=== PATIENT | female | born 1965 | race Caucasian/White ===

== ENCOUNTER 2023-05-25 20:53 | Outpatient (REF) | payer BC, SELFPAY ==
[2023-05-28 14:09] LABS: Age Gdln ACOG Testing Note (.); HPV Aptima Negative (Negative); IGP, Aptima HPV, rfx 16/18,45 Note (.)
== END 2023-05-25 20:54 | disposition home or self-care (01) ==
LOC: LAB 20:53
PROVIDERS: PCP Family Medicine; Visit Provider Obstetrics & Gynecology
DX: Z01.419 Encounter for gynecological examination (general) (routine) without abnormal findings (principal)
CPT/HCPCS: 87624; 88305; G0145

== ENCOUNTER 2023-06-05 14:25 | Outpatient (OUT) | payer BC, SELFPAY ==
--- NOTE | 2023-06-05 14:28 | CT_ITS ---
The [address] [address] Patient Name: JUAN CARLOS LOU MRN: [id number] date: 1965 Sex: F Assigned Patient Location: CT Current Patient Location: CT Accession/Order Number: [id number] Exam Date: 06/05/2023 14:35 Report Date: 06/05/2023 16:02 At the request of: CIARRA VILLATORO Procedure: CT chest wo con CT chest wo con, 06/05/2023 2:35 PM EST INDICATION: Right lower lobe pneumonia J18.9 COMPARISON: CT of the chest 06/18/2018, thyroid ultrasound 07/23/2015 TECHNIQUE: Thin-section axial CT images of the chest were acquired without contrast. Supplemental 2D reformatted images were generated and reviewed as needed. Dose reduction techniques were achieved by using automated exposure control and/or adjustment of mA and/or kV according to patient size and/or use of iterative reconstruction technique. FINDINGS: Nodule within the left lobe of thyroid gland, grossly unchanged. Heart size within normal limits. No pericardial effusion. No significant coronary artery calcification. No aortic aneurysm. No mediastinal or axillary lymphadenopathy. No central endobronchial nodule. No lobar consolidation, pleural effusion or pneumothorax. Interval decrease in conspicuity of left lower lobe subsegmental atelectasis with small focus of rounded atelectasis. No acute findings in the upper abdomen. No acute fracture. CT/CT chest wo con IMPRESSION: No acute cardiopulmonary process. Electronically authenticated by: FELIPA MARTIN Date: 06/05/2023 16:02
--- OUTSIDE RECORDS SUMMARY | 2023-06-05 14:53 | XMS_ITS | CCD ---
Author Name Unknown Address [address] [place] [address] Organization [facility] Care Team Providers Care Pinion Polisher Name Role Phone MD Sacha Monroy Primary Care Provider MD Vishal Card Attending Provider KYAW, DR BRIONES Admitting Unavailable KYAW, DR BRIONES Attending Unavailable IRVING, DR LAFLEUR Primary Care Unavailable KYAW, DR BRIONES Consulting Unavailable KARELVIRAK, DR BARKER Admitting Unavailable KARELVIRAK, DR BARKER Attending Unavailable IRVING, DR LAFLEUR Primary Care Unavailable KARELVIRAK, DR BARKER Consulting Unavailable KYAW, DR BRIONES Admitting Unavailable KYAW, DR BRIONES Attending Unavailable IRVING, DR LAFLEUR Primary Care Unavailable KYAW, DR BRIONES Consulting Unavailable MD Sacha Monroy Primary Care Provider [phone] MD Anali Card Attending Provider BILL SOTELO Attending Unavailable Bill Sotelo Attending Provider Bill Sotelo Attending Unavailable Bill Sotelo Admitting Unavailable Anali Card Attending Unavailable Anali Card Admitting Unavailable Sacha Monroy Primary Care Unavailable Medications Current Medications Medication Drug Class(es) Dates Sig (Normalized) Sig (Original) aspirin 81 mg delayed release oral tablet (4 sources) Platelet Aggregation Inhibitor, Nonsteroidal Anti-inflammatory Drug Start: 09-26-2020 take 1 tablet by mouth once daily Aspirin (Aspirin Low Dose) 81 mg Tablet,Delayed Release (Dr/Ec) Active 81 MG PO Daily September 25, 2020 11:00pm phentermine hydrochloride 37.5 mg oral tablet (8 sources) Sympathomimetic Amine Anorectic Start: 09-26-2020 End: 09-26-2020 take 1 tablet by mouth once daily Phentermine (Adipex-P) 37.5 mg tablet Active 37.5 MG PO Daily September 25, 2020 11:00pm simvastatin 20 mg oral tablet (4 sources) HMG-CoA Reductase Inhibitor Start: 09-26-2020 take 20 mg by mouth once daily Simvastatin Active 20 MG PO Daily September 25, 2020 11:00pm traZODone hydrochloride 100 mg oral tablet (4 sources) Serotonin Reuptake Inhibitor Start: 09-26-2020 take 50 mg by mouth at bedtime Trazodone Active 50 MG PO Bedtime September 25, 2020 11:00pm Problems Active Problems Problem Classification Problem Date Documented Da te Episodic/Chronic Osteoarthritis (5 sources) Unspecified osteoarthritis, unspecified site; Translations: [Primary generalized (osteo)arthritis] Onset: 06-06-2022 Chronic Other aftercare (1 source) 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; 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] Onset: 06-08-2022 Episodic Past or Other Problems Problem Classification Problem Date Documented Date Episodic/Chronic Immunizations and screening for infectious disease (2 sources) Raised antibody titer; Translations: [Encounter for screening for human papillomavirus (HPV)] Onset: 08-23-2021 Episodic Other screening for suspected conditions (not mental disorders or infectious disease) (4 sources) Encounter for screening for malignant neoplasm of cervix; Translations: [ENC SCREENING MALIG NEOPLASM CERV] Onset: 08-22-2021 Episodic Results Test Name Value Interpretation Reference Range Facility [facility] 05-25-2023 L Specimen: [id number] Received: 05/26/23 Status: MARIELA Mcgrath Num: [id number] Spec Type: Surgical Subm Dr: Bill Sotelo Tissues: A Cervical Polyp (CERVICAL POLYP) Procedures: HE/2, Gross/Micro L4 Age/ Patient Sex Location Account Attending Physician Juan Carlos Ogden 57/F LABELL [id number] Bill Sotelo SPEC NUM: [id number] RECD: 05/26/23 STATUS: MARIELA MCGRATH NUM: [id number] DARIUS: 05/25/23- SUBM DR: Bill Sotelo ENTERED: 05/26/[address]: Anali,Lab SPEC TYPE: Surgical DEPT: ADELSO COATES ORDERED: HE/2, Gross/Micro L4 ORDERED: HE/2, Gross/Micro L4 Pathological Diagnosis Uterine cervical polyp, polypectomy: - Benign markedly congested, and focally eroded, endocervical mucosal polyp, displaying patchy mildly associated acute and chronic inflammation, moderate external fibrin exudates, small focal mild eosinophilic and squamous metaplasia with associated reactive atypia without dysplasia identified Clinical Information Cervical polyp Gross Description Received in formalin labeled with the patient's name, date of and cervical polyp is a 1.5 x 1.2 x 0.2 cm aggregate of colón-brown soft tissue and mucoid material. Entirely submitted in one cassette labeled A1. CPT Codes 35339 Specimen: [id number] Received: 05/26/23 Status: MARIELA Mcgrath Num: [id number] Spec Type: Surgical Subm Dr: Bill Sotelo Tissues: A Cervical Polyp (CERVICAL POLYP) Procedures: HE/2, Gross/Micro L4 Patient: Jolanta Ogdenn [id number] (Continued) Signed (signature on file) Chin-Naif Neely MD 05/27/23 1009 Normal [facility] Alanine aminotransferase [En zymatic activity/volume] in Serum or PlasmaOrdered By: Anali Card on 02-12-2023 ALT [Catalytic activity/Vol] 70 U/L High 7-52 [facility] Comment on above: Performed By: #### C BC, CMP #### [facility] [address] [place] [address] Albumin [Mass/volume] in Ser um or Plasma by Bromocresol green (BCG) dye binding methoOrdered By: Anali Card on 02-12-2023 Albumin BCG dye [Mass/Vol] 4.3 g/dL 3.5-5.7 [facility] Alkaline phosphatase [Enzyma tic activity/volume] in Serum or PlasmaOrdered By: Anali Card on 02-12-2023 ALP [Catalytic activity/Vol] 80 U/L Normal 34-104 [facility] Comment on above: Result Comment: PERF ORMED BY: [place] [address] PATHOLOGIST DISTRIBUTION CENTER ADMINISTRATOR OLGA LIDIA CORONA M.D. Performed By: #### C BC, CMP #### [facility] [address] Aspartate aminotransferase [ Enzymatic activity/volume] in Serum or PlasmaOrdered By: Anali Card on 02-12-2023 AST [Catalytic activity/Vol] 36 U/L Normal 13-39 [facility] Comment on above: Performed By: #### C BC, CMP #### [place] [address] [place] Automated basophil %Ordered By: Anali Lalrow on 02-12-2023 Basophils/100 WBC (Bld) 0.4 % Normal . [facility] Comment on above: Performed By: #### C BC, CMP #### [address] Automated basophil countOrde red By: Anali Lalrow on 02-12-2023 Basophils (Bld) [#/Vol] 0.0 10*3/uL Normal 0.0-0.2 [facility] Comment on above: Result Comment: PERF ORMED BY: [place] [address] PATHOLOGIST DISTRIBUTION CENTER ADMINISTRATOR OLGA LIDIA CORONA M.D. Performed By: #### C BC, CMP #### [address] Automated blood monocyte cou ntOrdered By: Analigardenia Card on 02-12-2023 Monocytes (Bld) [#/Vol] 0.4 10*3/uL Normal 0.0-0.8 [facility] Comment on above: Performed By: #### C BC, CMP #### [address] Automated eosinophil %Ordere d By: Anali Lalrow on 02-12-2023 Eosinophils/100 WBC (Bld) 2.1 % Normal . [facility] Comment on above: Performed By: #### C BC, CMP #### [address] Automated eosinophil countOr dered By: Anali Lalrow on 02-12-2023 Eosinophils (Bld) [#/Vol] 0.1 10*3/uL Normal 0.0-0.45 [facility] Comment on above: Performed By: #### C BC, CMP #### [address] Automated monocyte %Ordered By: Anali Kyaw on 02-12-2023 Monocytes/100 WBC (Bld) 8.2 % Normal . [facility] Comment on above: Performed By: #### C BC, CMP #### [address] Automated neutrophil %Ordere d By: Anali Card on 02-12-2023 Neutrophils/100 WBC (Bld) 58.3 % Normal . [facility] Comment on above: Performed By: #### C BC, CMP #### [address] Bilirubin.total [Mass/volume ] in Serum or PlasmaOrdered By: Anali Lalrow on 02-12-2023 Bilirubin [Mass/Vol] 0.5 mg/dL Normal 0.3-1.0 [facility] Comment on above: Performed By: #### C BC, CMP #### [address] Calcium [Mass/volume] in Ser um or PlasmaOrdered By: Anali Lalrow on 02-12-2023 Calcium [Mass/Vol] 9.2 mg/dL Normal 8.6-10.3 [facility] Comment on above: Performed By: #### C BC, CMP #### [address] Carbon dioxide, total [Moles /volume] in Serum or PlasmaOrdered By: Anali Card on 02-12-2023 CO2 [Moles/Vol] 28.6 mmol/L Normal 21.0-31.0 [facility] Comment on above: Performed By: #### C BC, CMP #### [place] [address] [place] Chloride [Moles/volume] in S tex or PlasmaOrdered By: Anali Lalrow on 02-12-2023 Chloride [Moles/Vol] 106 mmol/L Normal 98-107 [facility] Comment on above: Performed By: #### C BC, CMP #### [address] Complete Blood Count Auto Di ffon 02-12-2023 Mean Corpuscular HGB Conc 33.5 g/dL Normal 32.0-35.0 [facility] Comment on above: Performed By: #### C BC, CMP #### [address] NRBC% 0.1 /100{WBC} Normal 0-0.5 [facility] Comment on above: Performed By: #### C BC, CMP #### [address] Comprehensive Metabolic Pane kim 02-12-2023 Albumin [Mass/Vol] 4.3 g/dL Normal 3.5-5.7 [facility] Comment on above: Performed By: #### C BC, CMP #### [address] GFR/1.73 sq M.predicted MDRD (S/P/Bld) [Vol rate/Area] mL/min/{1.73_m2} Normal [facility] Comment on above: Performed By: #### C BC, CMP #### [address] Creatinine [Mass/volume] in Serum or PlasmaOrdered By: Anali Card on 02-12-2023 Creatinine [Mass/Vol] 0.93 mg/dL Normal 0.60-1.20 [facility] Comment on above: Performed By: #### C BC, CMP #### [address] Erythrocyte distribution wid th [Ratio] by Automated countOrdered By: Anali Card on 02-12-2023 Erythrocyte distribution width (RBC) [Ratio] 14.5 % Normal 11.9-15.3 [facility] Comment on above: Performed By: #### C BC, CMP #### [address] Erythrocytes [#/volume] in B lood by Automated countOrdered By: Anali Card on 02-12-2023 RBC (Bld) [#/Vol] 4.32 10*6/uL Normal 3.60-5.00 [facility] Comment on above: Performed By: #### C BC, CMP #### [address] Glucose [Mass/volume] in Ser um or PlasmaOrdered By: Anali Card on 02-12-2023 Glucose [Mass/Vol] 107 mg/dL High 70-100 [facility] Comment on above: ADA recommended refe rence rangeRandom Glucose Reference Range is dependent on time and content of last meal. Glucose of more than 200 mg/dL in a nonstressed, ambulatory subject supports the diagnosis of Diabetes Mellitus. Result Comment: [place] Glucose Reference Range is dependent on time and content of last meal. Glucose of more than 200 mg/dL in a nonstressed, ambulatory subject supports the diagnosis of Diabetes Mellitus. ADA recommended reference range Performed By: #### C BC, CMP #### [address] Hematocrit [Volume Fraction] of Blood by Automated countOrdered By: Anali Card on 02-12-2023 Hematocrit (Bld) [Volume fraction] 39.2 % Normal 34.0-46.4 [facility] Comment on above: Performed By: #### C BC, CMP #### [address] Hemoglobin [Mass/volume] in BloodOrdered By: Anali Card on 02-12-2023 Hemoglobin (Bld) [Mass/Vol] 13.1 g/dL Normal 11.8-15.4 [facility] Comment on above: Performed By: #### C BC, CMP #### [address] Leukocytes [#/volume] correc henry for nucleated erythrocytes in Blood by Automated counOrdered By: Anali Card on 02-12-2023 WBC corrected for nucl RBC Auto (Bld) [#/Vol] 4.9 10*3/uL 3.8-11.6 [facility] Leukocytes [#/volume] in Blo od by Automated countOrdered By: Anali Card on 02-12-2023 WBC (Bld) [#/Vol] 4.9 10*3/uL Normal 3.8-11.6 [facility] Comment on above: Performed By: #### C BC, CMP #### [address] Lymphocytes [#/volume] in Bl ood by Automated countOrdered By: Anali Lalrow on 02-12-2023 Lymphocytes (Bld) [#/Vol] 1.5 10*3/uL Normal 1.00-4.8 [facility] Comment on above: Performed By: #### C BC, CMP #### [address] Lymphocytes/100 leukocytes i n Blood by Automated countOrdered By: Anali Kyaw on 02-12-2023 Lymphocytes/100 WBC (Bld) 31.0 % Normal . [facility] Comment on above: Performed By: #### C BC, CMP #### [address] MCH [Entitic mass] by Automa henry countOrdered By: Anali Lalrow on 02-12-2023 MCH (RBC) [Entitic mass] 30.4 pg Normal 24.7-34.3 [facility] Comment on above: Performed By: #### C BC, CMP #### [address] MCHC Auto (RBC) [Mass/Vol]Or dered By: Anali Kyaw on 02-12-2023 MCHC (RBC) [Mass/Vol] 33.5 g/dL 32.0-35.0 [facility] MCV [Entitic volume] by Auto mated countOrdered By: Anali Lalrow on 02-12-2023 MCV (RBC) [Entitic vol] 90.8 fL Normal 80-100 [facility] Comment on above: Performed By: #### C BC, CMP #### [place] [address] [place] Neutrophils [#/volume] in Bl ood by Automated countOrdered By: Anali Lalrow on 02-12-2023 Neutrophils (Bld) [#/Vol] 2.9 10*3/uL Normal 1.8-7.7 [facility] Comment on above: Performed By: #### C BC, CMP #### [address] No Panel InformationOrdered By: Anali Card on 02-12-2023 Estimated GFR (CKD-EPI) > 60.0 mL/Min [facility] Creatinine Clearance (Chem N/A [facility] Nucleated erythrocytes [Pres ence] in Blood by Automated countOrdered By: Anali Lalrow on 02-12-2023 Nucleated RBC Auto Ql (Bld) 0.1 /100{WBC} 0-0.5 [facility] Platelet mean volume [Entiti c volume] in Blood by Automated countOrdered By: Anali Lalrow on 02-12-2023 Platelet mean volume (Bld) [Entitic vol] 9.6 fL Normal 6.3-10.7 [facility] Comment on above: Performed By: #### C BC, CMP #### [address] Platelets [#/volume] in Bloo d by Automated countOrdered By: Anali Lalrow on 02-12-2023 Platelets (Bld) [#/Vol] 202 10*3/uL Normal 150-450 [facility] Comment on above: Performed By: #### C BC, CMP #### [address] Potassium [Moles/volume] in Serum or PlasmaOrdered By: Anali Card on 02-12-2023 Potassium [Moles/Vol] 4.6 mmol/L Normal 3.5-5.1 [facility] Comment on above: Performed By: #### C BC, CMP #### [address] Protein [Mass/volume] in Ser um or PlasmaOrdered By: Anali Card on 02-12-2023 Protein [Mass/Vol] 6.6 g/dL Normal 6.4-8.9 [facility] Comment on above: Performed By: #### C BC, CMP #### [address] Serum globulin measurement b y calculation (mass/volume)Ordered By: Anali Card on 02-12-2023 Globulin (S) [Mass/Vol] 2.3 g/dL Normal [facility] Comment on above: Performed By: #### C BC, CMP #### [address] Serum or plasma albumin/glob ulin mass ratioOrdered By: Anali Card on 02-12-2023 Albumin/Globulin [Mass ratio] 1.9 {ratio} Normal [facility] Comment on above: Performed By: #### C BC, CMP #### [address] Serum or plasma anion gap de terminationOrdered By: Anali Card on 02-12-2023 Anion gap [Moles/Vol] 11.0 mmol/L Normal 6.0-15.0 [facility] Comment on above: Performed By: #### C BC, CMP #### [address] Sodium [Moles/volume] in Ser um or PlasmaOrdered By: Anali Lalrow on 02-12-2023 Sodium [Moles/Vol] 141 mmol/L Normal 136-145 [facility] Comment on above: Performed By: #### C BC, CMP #### [address] Urea nitrogen [Mass/volume] in Serum or PlasmaOrdered By: Anali Card on 02-12-2023 Urea nitrogen [Mass/Vol] 16 mg/dL Normal 7-25 [facility] Comment on above: Performed By: #### C BC, CMP #### [address] ANTICARDIOLIPIN AB (SELINA) IGG on 06-09-2022 Anticardiolipin Ab,IgG,Qn <9 Normal 0-14 [facility] Comment on above: Result Comment: Nega tive: <15 Indeterminate: 15 - 20 Low-Med Positive: >20 - 80 High Positive: >80 Performed By: #### C ARDLIP #### [facility] [address] [address] [address] Allison Neely CBC AUTO DIFFon 02-03-2023 BASO # 0.0 103/ul Normal 0.0-0.1 [facility] Comment on above: Performed By: #### C BC #### [facility] [address] [place] [address] Dr. Allison Neely Basophils/100 WBC (Bld) 0.5 % Normal 0.2-2.0 [facility] Comment on above: Performed By: #### C BC #### [facility] [address] [place] [address] Dr. Allison Neely EO # 0.1 103/ul Normal 0.0-0.7 [facility] Comment on above: Performed By: #### C BC #### [facility] [address] [place] [address] Dr. Allison Neely Eosinophils/100 WBC (Bld) 0.9 % Normal 0.9-7.0 [facility] Comment on above: Performed By: #### C BC #### [facility] [address] [place] [address] Dr. Allison Neely Erythrocyte distribution width (RBC) [Ratio] 13.7 % Normal 11.0-15.0 [facility] Comment on above: Performed By: #### C BC #### [facility] [address] [place] [address] Dr. Allison Neely Hematocrit (Bld) [Volume fraction] 41.8 % Normal 36.0-48.0 [facility] Comment on above: Performed By: #### C BC #### [facility] [address] [place] [address] Dr. Allison Neely Hemoglobin (Bld) [Mass/Vol] 13.0 g/dL Normal 12.0-16.0 [facility] Comment on above: Performed By: #### C BC #### [facility] [address] [place] [address] Dr. Allison Neely IG # 0.01 10e3/ul Normal 0.00-0.03 [facility] Comment on above: Performed By: #### C BC #### [facility] [address] [place] [address] Dr. Allison Neely IG % 0.2 % Normal 0.0-0.5 [facility] Comment on above: Performed By: #### C BC #### [facility] [address] [place] [address] Dr. Allison Neely LYMPH # 1.7 103/ul Normal 1.2-3.8 [facility] Comment on above: Performed By: #### C BC #### [facility] [address] [place] [address] Dr. Allison Neely Lymphocytes/100 WBC (Bld) 30.5 % Normal 20.5-60.0 [facility] Comment on above: Performed By: #### C BC #### [facility] [address] [place] [address] Dr. Allison Neely MANUAL DIFF REQ NO Normal [facility] Comment on above: Performed By: #### C BC #### [facility] [address] [place] [address] Dr. Allison Neely MCH (RBC) [Entitic mass] 29.7 pg Normal 26.7-34.0 [facility] Comment on above: Performed By: #### C BC #### [facility] [address] [place] [address] Dr. Allison Neely MCHC (RBC) [Mass/Vol] 31.1 g/dL Normal 29.9-35.2 [facility] Comment on above: Performed By: #### C BC #### [facility] [address] [place] [address] Dr. Allison Neely MCV (RBC) [Entitic vol] 95.7 fL Normal 81.0-99.0 [facility] Comment on above: Performed By: #### C BC #### [facility] [address] [place] [address] Dr. Allison eNely MONO # 0.3 103/ul Normal 0.3-0.8 [facility] Comment on above: Performed By: #### C BC #### [facility] [address] [place] [address] Dr. Allison Neely Monocytes/100 WBC (Bld) 5.1 % Normal 1.7-12.0 [facility] Comment on above: Performed By: #### C BC #### [facility] [address] [place] [address] Dr. Allison Neely NEUT # 3.5 103/ul Normal 1.4-6.5 [facility] Comment on above: Performed By: #### C BC #### [facility] [address] [place] [address] Dr. Allison Neely Neutrophils/100 WBC (Bld) 62.8 % Normal 43.0-75.0 [facility] Comment on above: Performed By: #### C BC #### [facility] [address] [place] [address] Dr. Allison Neely Platelet mean volume (Bld) [Entitic vol] 12.0 fL Normal 9.5-13.5 [facility] Comment on above: Performed By: #### C BC #### [facility] [address] [place] [address] Dr. Allison Neely PLT 274 103/ul Normal 150-450 [facility] Comment on above: Performed By: #### C BC #### [facility] [address] [place] [address] Dr. Allison Neely RBC 4.37 106/ul Normal 4.20-5.40 [facility] Comment on above: Performed By: #### C BC #### [facility] [address] [place] [address] Dr. Allison Neely WBC 5.6 103/ul Normal 4.0-11.0 [facility] Comment on above: Performed By: #### C BC #### [facility] [address] [place] [address] Dr. Allison Neely PROF 14(COMP METB)on 023 Albumin [Mass/Vol] 4.0 g/dL Normal 3.4-5.0 [facility] Comment on above: Performed By: #### C MP #### [facility] [address] [place] [address] Dr. Allison Neely Albumin/Globulin [Mass ratio] 1.3 {ratio} Normal [facility] Comment on above: Performed By: #### C MP #### [facility] [address] [address] [address] Allison Neely ALP [Catalytic activity/Vol] 103 U/L Normal 46-116 [facility] Comment on above: Performed By: #### C MP #### [facility] [address] [address] [address] Allison Neely ALT [Catalytic activity/Vol] 69 U/L Critically high 14-59 [facility] Comment on above: Performed By: #### C MP #### [facility] [address] [address] [address] Allison Neely Anion gap [Moles/Vol] 12.8 mmol/L Normal Th [facility] Comment on above: Performed By: #### C MP #### [facility] [address] [place] [address] Dr. Allison Neely AST [Catalytic activity/Vol] 30 U/L Normal 15-37 [facility] Comment on above: Performed By: #### C MP #### [facility] [address] [address] [address] Allison Neely Bilirubin [Mass/Vol] 0.4 mg/dL Normal 0.2-1.0 [facility] Comment on above: Performed By: #### C MP #### [facility] [address] [address] [address] Allison Neely Calcium [Mass/Vol] 9.3 mg/dL Normal 8.5-10.1 [facility] Comment on above: Performed By: #### C MP #### [facility] [address] [address] [address] Allison Neely Chloride [Moles/Vol] 101 mmol/L Normal 98-107 [facility] Comment on above: Performed By: #### C MP #### [facility] [address] [address] [address] Allison Neely CO2 [Moles/Vol] 29.2 mmol/L Normal 21.0-32.0 [facility] Comment on above: Performed By: #### C MP #### [facility] [address] [address] [address] Allison Neely Creatinine [Mass/Vol] 0.99 mg/dL Normal 0.55-1.02 [facility] Comment on above: Performed By: #### C MP #### [facility] [address] [address] [address] Allison Neely EGFR-AF SRI LANKAN >60 Normal >=60 [facility] Comment on above: Performed By: #### C MP #### [facility] [address] [address] [address] Allison Neely EGFR-NON AF SRI LANKAN 58 mL/min/1.73m2 Critically low >=60 [facility] Comment on above: Performed By: #### C MP #### [facility] [address] [place] [address] Dr. Allison Neely Globulin (S) [Mass/Vol] 3.0 g/dL Normal [facility] Comment on above: Performed By: #### C MP #### [facility] [address] [place] [address] Dr. Allison Neely Glucose [Mass/Vol] 157 mg/dL Critically high 74-106 [facility] Comment on above: Performed By: #### C MP #### [facility] [address] [place] [address] Dr. Allison Neely Potassium [Moles/Vol] 4.0 mmol/L Normal 3.5-5.1 [facility] Comment on above: Performed By: #### C MP #### [facility] [address] [place] [address] Dr. Allison Neely Protein [Mass/Vol] 7.0 g/dL Normal 6.4-8.2 [facility] Comment on above: Performed By: #### C MP #### [facility] [address] [place] [address] Dr. Allison Neely Sodium [Moles/Vol] 139 mmol/L Normal 136-145 [facility] Comment on above: Performed By: #### C MP #### [facility] [address] [place] [address] Dr. Allison Neely Urea nitrogen [Mass/Vol] 26.0 mg/dL Critically high 7.0-18 .0 [facility] Comment on above: Performed By: #### C MP #### [facility] [address] [place] [address] Dr. Allison Neely Urea nitrogen/Creatinine [Mass ratio] 26.3 mg/mg Normal [facility] Comment on above: Performed By: #### C MP #### [facility] [address] [place] [address] Dr. Allison Neely ANTICARDIOLIPIN AB (SELINA) IGG on 12-26-2021 Anticardiolipin Ab,IgG,Qn <9 Normal 0-14 [facility] Comment on above: Result Comment: Nega tive: <15 Indeterminate: 15 - 20 Low-Med Positive: >20 - 80 High Positive: >80 Performed By: #### C ARDLIP #### [facility] [address] [place] [address] Dr. Allison Neely PAP ACOG PANEL 2: 30 to 65on 08-29-2021 . . Normal [facility] Comment on above: Result Comment: Perf ormed at: WB Performed By: #### [id number] #### [facility] [address] [place] [address] Dr. Allison Neely Age Gdln ACOG Testing 30-65 Normal [facility] Comment on above: Performed By: #### [id number] #### [facility] [address] [place] [address] Dr. Allison Neely DIAGNOSIS: Comment Normal [facility] Comment on above: Result Comment: NEGA TIVE FOR INTRAEPITHELIAL LESION OR MALIGNANCY. CELLULAR CHANGES ASSOCIATED WITH ATROPHY ARE PRESENT. Performed at: WB Performed By: #### [id number] #### [facility] [address] [place] [address] Dr. Allison Neely HPV Aptima Negative Normal Negative [facility] Comment on above: Result Comment: This nucleic acid amplification test detects fourteen high-risk HPV types (16,18,31,33,35,39,45,51,52,56,58,59,66,68) without differentiation. Performed at: =G Performed By: #### [id number] #### [facility] [address] [place] [address] Dr. Allison Neely Methodology: Comment Normal [facility] Comment on above: Result Comment: This liquid based ThinPrep(R) pap test was screened with the use of an image guided system. Performed at: WB Performed By: #### [id number] #### [facility] [address] [place] [address] Dr. Allison Neely Note: Comment Normal [facility] Comment on above: Result Comment: The Pap smear is a screening test designed to aid in the detection of premalignant and malignant conditions of the uterine cervix. It is not a diagnostic procedure and should not be used as the sole means of detecting cervical cancer. Both false-positive and false-negative reports do occur. . Performed at: WB Performed By: #### [id number] #### [facility] [address] [place] [address] Dr. Allison Neely Performed by: Comment Normal [facility] Comment on above: Result Comment: Nuno Solis, Corporate Executive Chef (ASCP) Performed at: WB Performed By: #### [id number] #### [facility] [address] [place] [address] Dr. Allison Neely Specimen adequacy: Comment Normal [facility] Comment on above: Result Comment: Sati sfactory for evaluation. Endocervical component may not be distinguished in cases of atrophy. Performed at: WB Performed By: #### [id number] #### [facility] [address] [place] [address] Dr. Allison Neely Activated partial thrombopla stin time (aPTT) in platelet poor plasma by coagulation aOrdered By: Anali Card on 08-26-2021 aPTT Coag (PPP) [Time] 33.9 s 25.1-36.5 [facility] Albumin [Mass/volume] in Ser um or PlasmaOrdered By: Anali Card on 08-26-2021 Albumin [Mass/Vol] 4.0 g/dL [facility] Albumin/Protein.total in 24 hour Urine by ElectrophoresisOrdered By: Anali Card on 08-26-2021 Albumin Elph (24H U) [Mass fraction] 22.6 % [facility] Automated erythrocytes count in urine sediment (number/area)Ordered By: Anali Card on 08-26-2021 RBC Auto (Urine sed) [#/Area] 0-1 [HPF] [facility] Automated leukocytes count i n urine sediment (number/area)Ordered By: Anali Card on 08-26-2021 WBC Auto (Urine sed) [#/Area] 0-1 [HPF] [facility] Basophils Auto (Bld) [#/Vol] Ordered By: Anali Card on 08-26-2021 Basophils (Bld) [#/Vol] 0.0 10*3/uL 0.0-0.2 [facility] Basophils/100 WBC Auto (Bld) Ordered By: Anali Card on 08-26-2021 Basophils/100 WBC (Bld) 0.8 % [facility] Bilirubin Test strip Ql (U)O rdered By: Anali Card on 08-26-2021 Bilirubin Ql (U) Negative Negative [facility] Blood hemoglobin measurement (mass/volume)Ordered By: Anali Card on 08-26-2021 Hemoglobin (Bld) [Mass/Vol] 13.5 g/dL 11.8-15.4 [facility] Blood leukocytes automated c ount (number/volume)Ordered By: Anali Card on 08-26-2021 WBC (Bld) [#/Vol] 3.3 10*3/uL 4.5-11.0 [facility] Body fluid albumin measureme nt (mass/volume)Ordered By: Anali Card on 08-26-2021 Albumin (Body fld) [Mass/Vol] 4.3 g/dL 3.2-5.5 [facility] Color Auto (U)Ordered By: Venkat Card on 08-26-2021 Color (U) Yellow Yellow [facility] Creatine kinase [Enzymatic a ctivity/volume] in Serum or PlasmaOrdered By: Anali Card on 08-26-2021 CK [Catalytic activity/Vol] 137 U/L 22-269 [facility] Creatinine and Glomerular fi ltration rate.predicted panel (S/P/Bld)Ordered By: Anali Card on 08-26-2021 Creatinine [Mass/Vol] 0.91 mg/dL 0.44-1.03 [facility]ir [facility] Dilute Morgan's viper venom timeOrdered By: Anali Card on 08-26-2021 dRVVT Coag (PPP) [Time] 39.0 s F [facility] Eosinophils Auto (Bld) [#/Vo l]Ordered By: Anali Card on 08-26-2021 Eosinophils (Bld) [#/Vol] 0.1 10*3/uL 0.0-0.45 [facility] Eosinophils/100 WBC Auto (Bl d)Ordered By: Anali Card on 08-26-2021 Eosinophils/100 WBC (Bld) 4.2 % [facility] Erythrocyte distribution wid th Auto (RBC) [Ratio]Ordered By: Anali Card on 08-26-2021 Erythrocyte distribution width (RBC) [Ratio] 13.6 % 11.9-15.3 [facility] Erythrocyte sedimentation ra te by Photometric methodOrdered By: Anali Card on 08-26-2021 ESR Photometric method (Bld) [Velocity] 9 mm/hr 0-29 [facility] Estimated glomerular filtrat ion rate (GFR) non- AmericanOrdered By: Anali Card on 08-26-2021 GFR/1.73 sq M.predicted among non-blacks MDRD (S/P/Bld) [Vol rate/Area] > 60 mL/Min [facility] Gamma globulin/Protein.total in 24 hour Urine by ElectrophoresisOrdered By: Anali Card on 08-26-2021 Gamma globulin Elph (24H U) [Mass fraction] 16.7 % [facility] Globulin Calc (S) [Mass/Vol] Ordered By: Anali Card on 08-26-2021 Globulin (S) [Mass/Vol] 2.4 g/dL [facility] Hematocrit Auto (Bld) [Volum e fraction]Ordered By: Anali Card on 08-26-2021 Hematocrit (Bld) [Volume fraction] 39.9 % 34.0-46.4 [facility] Hepatitis B virus surface Ag [Presence] in Serum or Plasma by ImmunoassayOrdered By: Anali Card on 08-26-2021 HBV surface Ag IA Ql Negative Negative [facility] Hepatitis C virus RNA [Prese nce] in Serum or Plasma by MALIKA with probe detectionOrdered By: Anali Card on 08-26-2021 HCV RNA MALIKA+probe Ql N/A [facility] IgA [Mass/volume] in Serum o r PlasmaOrdered By: Anali Card on 08-26-2021 IgA [Mass/Vol] 103 mg/dL [facility] IgG [Mass/volume] in Serum o r PlasmaOrdered By: Anali Card on 08-26-2021 IgG [Mass/Vol] 617 mg/dL [facility] IgM [Mass/volume] in Serum o r PlasmaOrdered By: Anali Card on 08-26-2021 IgM [Mass/Vol] 226 mg/dL [facility] Comment on above: Performed at: [facility] [place] [id number] Contracts Director: Prakash Ballesteros PhD, Phone: [phone] Immunofixation for UrineOrde red By: Anali Card on 08-26-2021 Interpretation Immunofixation (U) [Interp] See comment [facility] Comment on above: No monoclonality det ected. Performed at: [facility] [address] [id number] Contracts Director: Prakash Ballesteros PhD, Phone: [phone] Ketones Auto test strip (U) [Mass/Vol]Ordered By: Anali Card on 08-26-2021 Ketones (U) [Mass/Vol] Negative Negative [facility] - CoagulationOrde red By: Anali Card on 08-26-2021 PT Coag (PPP) [Time] 11.1 s 9.0-12.9 [facility] - Hematology and Cell countsOrdered By: Anali Card on 08-26-2021 Nucleated RBC/100 WBC (Bld) [Ratio] 0.1 % 0-0.5 [facility] - UrinalysisOrder ed By: Anali Card on 08-26-2021 Hyaline casts LM Ql (Urine sed) 0-8 [LPF] [facility] Lupus anticoagulant [Interpr etation] in Platelet poor plasmaOrdered By: Anali Card on 08-26-2021 Lupus anticoagulant (PPP) [Interp] Comment: [facility] Comment on above: No lupus anticoagula nt was detected. Performed at: - [facility] [id number] Contracts Director: Amanda Olmedo MD, Phone: [phone] Lymphocytes Auto (Bld) [#/Vo l]Ordered By: Anali Card on 08-26-2021 Lymphocytes (Bld) [#/Vol] 1.2 10*3/uL 1.00-4.8 [facility] Lymphocytes/100 WBC Auto (Bl d)Ordered By: Anali Card on 08-26-2021 Lymphocytes/100 WBC (Bld) 37.9 % [facility] MCH Auto (RBC) [Entitic mass ]Ordered By: Anali Card on 08-26-2021 MCH (RBC) [Entitic mass] 30.7 pg 24.7-34.3 [facility] MCHC Auto (RBC) [Mass/Vol]Or dered By: Anali Card on 08-26-2021 MCHC (RBC) [Mass/Vol] 33.8 g/dL 32.0-35.0 [facility] MCV Auto (RBC) [Entitic vol] Ordered By: Anali Card on 08-26-2021 MCV (RBC) [Entitic vol] 90.6 fL 80-100 [facility] Monocytes Auto (Bld) [#/Vol] Ordered By: Anali Card on 08-26-2021 Monocytes (Bld) [#/Vol] 0.3 10*3/uL 0.0-0.8 [facility] Monocytes/100 WBC Auto (Bld) Ordered By: Anali Card on 08-26-2021 Monocytes/100 WBC (Bld) 8.5 % [facility] Neutrophils Auto (Bld) [#/Vo l]Ordered By: Anali Card on 08-26-2021 Neutrophils (Bld) [#/Vol] 1.6 10*3/uL 1.8-7.7 [facility] Neutrophils/100 WBC Auto (Bl d)Ordered By: Anali Kyaw on 08-26-2021 Neutrophils/100 WBC (Bld) 48.6 % [facility] Nitrite Test strip Ql (U)Ord ered By: Anali Card on 08-26-2021 Nitrite Ql (U) Negative Negative [facility] No Panel InformationOrdered By: Anali Card on 08-26-2021 Estimated GFR () > 60 mL/Min [facility] Comment on above: GFR estimated refere nce range: According to KDOQI guidelines, <60 ml/min/1.73m2 is sufficient to diagnose a patient with chronic kidney disease. Hepatitis B Core Total Antibody Negative Negative [facility] Comment on above: Performed at: [facility] [address] [id number] Contracts Director: Prakash Ballesteros PhD, Phone: [phone] Hepatitis C RNA Comment N/A [facility] Creatinine Clearance (Chem N/A [facility] Protein Electrophoresis M-Shawn Not observed g/dL Not Observed [facility] Protein Electrophoresis Note See comment [facility] Comment on above: Protein electrophore sis scan will follow via computer, mail, or electric power machine operator delivery. Serum Immunofixation See comment [facility] Comment on above: No monoclonality det ected. Urine Random Prot Electrophor Note See comment [facility] Comment on above: Protein electrophore sis scan will follow via computer, mail, or electric power machine operator delivery. Performed at: [facility] [address] [id number] Contracts Director: Prakash Ballesteros PhD, Phone: [phone] Platelet mean volume Auto (B ld) [Entitic vol]Ordered By: Anali Card on 08-26-2021 Platelet mean volume (Bld) [Entitic vol] 9.9 fL 6.3-10.7 [facility] Platelet poor plasma interna tional normalized ratio (INR) by coagulation assay (relatOrdered By: Anali Card on 08-26-2021 INR Coag (PPP) [Relative time] 1.0 {INR} [facility] Comment on above: INR Therapeutic Rang e A) Pre- and Peroperative OAT started two weeks before surgery. NOT HIP SURGERY: 1.5 - 2.5 HIP SURGERY: 2 - 3B) Primary and secondary prevention of venous THROMBOSIS: 2 - 3C) Active venous thrombosis, pulmonary embolismand prevention of recurrent venous thrombosis: 2 - 3D) Prevention of arterial thromboembolismincluding patients with mechanical heart valves: 3 - 4.5 INR Therapeutic Rang e A) Pre- and Peroperative OAT started two weeks before surgery. NOT HIP SURGERY: 1.5 - 2.5 HIP SURGERY: 2 - 3 B) Primary and secondary prevention of venous THROMBOSIS: 2 - 3 C) Active venous thrombosis, pulmonary embolism and prevention of recurrent venous thrombosis: 2 - 3 D) Prevention of arterial thromboembolism including patients with mechanical heart valves: 3 - 4.5 Platelet poor plasma ratio o f lupus anticoagulant-sensitive activated partial thromboOrdered By: Anali Card on 08-26-2021 aPTT.lupus sensitive.excess phospholipid actual/normal Coag (PPP) [Relative time] 35.7 sec [facility] Platelets Auto (Bld) [#/Vol] Ordered By: Anali Card on 08-26-2021 Platelets (Bld) [#/Vol] 243 10*3/uL 150-450 [facility] Protein Auto test strip (U) [Mass/Vol]Ordered By: Anali Card on 08-26-2021 Protein (U) [Mass/Vol] Negative Negative [facility] Protein [Mass/volume] in Ser um or PlasmaOrdered By: Anali Card on 08-26-2021 Protein [Mass/Vol] 6.7 g/dL 6.1-7.9 [facility] Protein [Mass/Vol] 6.5 g/dL [facility] Protein [Mass/volume] in Uri neOrdered By: Anali Card on 08-26-2021 Protein (U) [Mass/Vol] 9.0 mg/dL Not Estab. Fi [facility] Protein.monoclonal/Protein.t otal in 24 hour Urine by ElectrophoresisOrdered By: Anali Card on 08-26-2021 Protein.monoclonal Elph (24H U) [Mass fraction] Not observed % Not Observed [facility] RBC Auto (Bld) [#/Vol]Ordere d By: Anali Card on 08-26-2021 RBC (Bld) [#/Vol] 4.40 10*6/uL 3.60-5.00 [facility] Reagin Ab [Presence] in Seru m by RPROrdered By: Anali Card on 08-26-2021 Reagin Ab RPR Ql (S) Non-Reactive Non Reactive [facility] Comment on above: Performed at: [facility] [place] [address] Contracts Director: Prakash Ballesteros PhD, Phone: [phone] Serum angiotensin converting enzyme (MARC) measurementOrdered By: Anali Card on 08-26-2021 Angiotensin converting enzyme [Catalytic activity/Vol] 33 U/L [facility] Comment on above: Performed at: [employer] [place] [address] Contracts Director: Prakash Ballesteros PhD, Phone: [phone] Serum globulin measurement ( mass/volume)Ordered By: Anali Card on 08-26-2021 Globulin (S) [Mass/Vol] 2.5 g/dL [facility] Serum hepatitis B virus surf marc antibody detectionOrdered By: Anali Card on 08-26-2021 HBV surface Ab Ql (S) Reactive [facility] Comment on above: Non Reactive: Incons istent with immunity, less than 10 mIU/mL Reactive: Consistent with immunity, greater than 9.9 mIU/mL Serum or plasma C reactive p rotein measurement (mass/volume)Ordered By: Anali Card on 08-26-2021 CRP [Mass/Vol] 0.5 mg/dL 0.0-1.0 [facility] Serum or plasma alanine shell otransferase measurement without P-5'-P (enzymatic activiOrdered By: Anali Card on 08-26-2021 ALT No additional P-5'-P [Catalytic activity/Vol] 37 U/L 10-60 [facility] Serum or plasma albumin/glob ulin mass ratioOrdered By: Anali Card on 08-26-2021 Albumin/Globulin [Mass ratio] 1.8 {ratio} [facility] Albumin/Globulin [Mass ratio] 1.6 {ratio} [facility] Serum or plasma alkaline kiesha sphatase measurement (enzymatic activity/volume)Ordered By: Anali Card on 08-26-2021 ALP [Catalytic activity/Vol] 41 U/L 32-92 [facility] Serum or plasma alpha 1 glob ulin measurement by electrophoresis (mass/volume)Ordered By: Anali Card on 08-26-2021 Alpha 1 globulin Elph [Mass/Vol] 0.2 g/dL [facility] Serum or plasma alpha 2 glob ulin measurement by electrophoresis (mass/volume)Ordered By: Anali Card on 08-26-2021 Alpha 2 globulin Elph [Mass/Vol] 0.6 g/dL [facility] Serum or plasma aspartate am inotransferase measurement (enzymatic activity/volume)Ordered By: Anali Card on 08-26-2021 AST [Catalytic activity/Vol] 26 U/L 10-42 [facility] Serum or plasma beta globuli n measurement by electrophoresis (mass/volume)Ordered By: Anali Card on 08-26-2021 Beta globulin Elph [Mass/Vol] 1.0 g/dL [facility] Serum or plasma calcium lenka urement (mass/volume)Ordered By: Anali Card on 08-26-2021 Calcium [Mass/Vol] 9.6 mg/dL 8.2-10.2 [facility] Serum or plasma chloride bob surement (moles/volume)Ordered By: Anali Card on 08-26-2021 Chloride [Moles/Vol] 105 mmol/L 95-114 [facility] Serum or plasma gamma globul in measurement by electrophoresis (mass/volume)Ordered By: Anali Card on 08-26-2021 Gamma globulin Elph [Mass/Vol] 0.7 g/dL [facility] Serum or plasma glucose lenka urement (mass/volume)Ordered By: Anali Card on 08-26-2021 Glucose [Mass/Vol] 108 mg/dL 70-100 [facility] Comment on above: ADA recommended refe rence rangeRandom Glucose Reference Range is dependent on time and content of last meal. Glucose of more than 200 mg/dL in a nonstressed, ambulatory subject supports the diagnosis of Diabetes Mellitus. ADA recommended refe rence range Random Glucose Reference Range is dependent on time and content of last meal. Glucose of more than 200 mg/dL in a nonstressed, ambulatory subject supports the diagnosis of Diabetes Mellitus. Serum or plasma hepatitis C virus antibody detection by immunoassayOrdered By: Anali Card on 08-26-2021 HCV Ab IA Ql See comment [facility] Comment on above: Negative Not infected with HCV, unless recent infection is suspected or other evidence exists to indicate HCV infection. Effective September 02, 2021 HCV Antibody reflex to MALIKA will be made non-orderable. This will affect any Custom Profile that includes 582455 HCV Antibody reflex to MALIKA. [employer] offers order code 158016 HCV Antibody RFX to Quant PCR as an alternative. Performed at: [facility] [address] [id number] Contracts Director: Prakash Ballesteros PhD, Phone: [phone] Serum or plasma hepatitis C virus antibody signal/cutoff ratio by immunoassay (relatiOrdered By: Anali Card on 08-26-2021 HCV Ab Signal/Cutoff IA [Rel units/Vol] <0.1 s/co ratio [facility] Serum or plasma potassium me asurement (moles/volume)Ordered By: Anali Card on 08-26-2021 Potassium [Moles/Vol] 4.5 mmol/L 3.5-5.1 [facility] Serum or plasma sodium measu rement (moles/volume)Ordered By: Anali Card on 08-26-2021 Sodium [Moles/Vol] 142 mmol/L 136-146 [facility] Serum or plasma thyroglobuli n antibody assay (units/volume)Ordered By: Anali Card on 08-26-2021 Thyroglobulin Ab Qn [IU]/mL [facility] Comment on above: Thyroglobulin Antibo dy measured by [employer] Performed at: [facility] [id number] Contracts Director: Prakash Ballesteros PhD, Phone: [phone] Serum or plasma thyroperoxid ase antibody assay (units/volume)Ordered By: Anali Card on 08-26-2021 TPO Ab Qn 12 [IU]/mL [facility] Comment on above: Performed at: [address] [id number] Contracts Director: Prakash Ballesteros PhD, Phone: [phone] Serum or plasma total biliru bin measurement (mass/volume)Ordered By: Anali Card on 08-26-2021 Bilirubin [Mass/Vol] 0.5 mg/dL 0.3-1.2 [facility] Serum or plasma total carbon dioxide measurement (moles/volume)Ordered By: Anali Card on 08-26-2021 CO2 [Moles/Vol] 26.9 mmol/L 22.0-30.0 [facility] Serum or plasma urea nitroge n measurement (mass/volume)Ordered By: Anali Card on 08-26-2021 Urea nitrogen [Mass/Vol] 17 mg/dL 9-23 [facility] Specific gravity Auto test s trip (U) [Rel density]Ordered By: Anali Card on 08-26-2021 Specific gravity (U) [Rel density] 1.017 1.001-1.03 0 [facility] Squamous epithelial cells de tection in urine sediment by light microscopyOrdered By: Anali Card on 08-26-2021 Epithelial cells.squamous LM Ql (Urine sed) None seen [HPF] [facility] TSH DL <= 0.005 mIU/L QnOrde red By: Anali Card on 08-26-2021 TSH Qn 1.43 m[IU]/L 0.45-5.33 [facility] TT plasOrdered By: Anali hall on 08-26-2021 Thrombin time Coag (PPP) [Time] 20.6 sec [facility] Thyroxine (T4) free [Mass/vo lume] in Serum or PlasmaOrdered By: Anali Card on 08-26-2021 Free T4 [Mass/Vol] 0.77 ng/dL 0.61-1.12 [facility] Urine alpha 1 globulin/total protein by electrophoresisOrdered By: Anali Card on 08-26-2021 Alpha 1 globulin Elph (U) [Mass fraction] 7.7 % [facility] Urine alpha 2 globulin/total protein ratio by electrophoresisOrdered By: Anali Card on 08-26-2021 Alpha 2 globulin Elph (U) [Mass fraction] 15.7 % [facility] Urine bacteria detection by automated methodOrdered By: Anali Card on 08-26-2021 Bacteria Auto Ql (U) None seen None Seen [facility] Urine beta globulin measurem ent by electrophoresis (mass/volume)Ordered By: Anali Card on 08-26-2021 Beta globulin Elph (U) [Mass/Vol] 37.4 % [facility] Urine clarity by refractomet ry automatedOrdered By: Anali Card on 08-26-2021 Clarity Refractometry automated (U) Clear Clear [facility] Urine glucose measurement by automated test strip (mass/volume)Ordered By: Anali Card on 08-26-2021 Glucose Auto test strip (U) [Mass/Vol] Normal mg/dL Normal [facility] Urine hemoglobin detection b y automated test stripOrdered By: Anali Card on 08-26-2021 Hemoglobin Auto test strip Ql (U) Negative Negative [facility] Urine leukocyte esterase det ection by automated test stripOrdered By: Anali Card on 08-26-2021 Leukocyte esterase Auto test strip Ql (U) Negative Negative [facility] Urobilinogen Auto test strip (U) [Mass/Vol]Ordered By: Anali Card on 08-26-2021 Urobilinogen (U) [Mass/Vol] Normal mg/dL Normal [facility] aPTT.lupus sensitive (LA scr een)Ordered By: Anali Card on 08-26-2021 aPTT.lupus sensitive Coag (PPP) [Time] 35.3 sec [facility] aPTT.lupus sensitive/aPTT.scotty pus sensitive W excess phospholipid (screen to confirm raOrdered By: Anali Card on 08-26-2021 aPTT.lupus sensitive/aPTT.lupus sensitive W excess phospholipid Coag (PPP) [Ratio] 1.04 Ratio [facility] pH Auto test strip (U)Ordere d By: Anali Card on 08-26-2021 pH (U) 6.0 [pH] 5.0-9.0 [facility] Encounters Encounter Date Encounter Type Care Provider Facility Start: 05-25-2023 End: 05-25-2023 ambulatory BILL SOTELO Not Available Start: 05-25-2023 End: 05-25-2023 Departed Referred Bill Sotelo Work Phone: [facility] Start: 02-12-2023 End: 02-12-2023 ambulatory Anali Card Facility:[facility] Start: 02-12-2023 End: 02-12-2023 ambulatory MD Sacha Monroy Work Phone: [facility] Work Phone: Start: 02-12-2023 End: 02-12-2023 Patient encounter procedure MD Sacha Monroy Work Phone: [facility] [address] Work Phone: Start: 06-06-2022 End: 06-07-[address] ANALI CARD Facility:[facility] Start: 12-25-2021 End: 12-26-[address] ANALI CARD Facility:[facility] Start: 09-05-2021 End: 09-05-2021 Patient encounter procedure MD Sacha Monroy Work Phone: [facility] [address] Start: 08-26-2021 End: 08-26-2021 Patient encounter procedure MD Sacha Monroy Work Phone: [facility] [address] Start: 08-22-2021 End: 08-22-[address] LUCERO KUHN Facility:[facility] Procedures Date Procedure Procedure Detail Performing Clinician Start: 09-05-2021 Plain X-ray of bilat eral wrists MD Sacha Monroy Work Phone: Start: 09-05-2021 Plain X-ray of bilat eral hands MD Sacha Monroy Work Phone: Plan of Treatment Date Care Activity Detail Author 24 hour urine measurement [facility] Work Phone: Albumin [Mass/volume] in Serum or Plasma [facility] Work Phone: Albumin/Globulin ratio [facility] Work Phone: Angiotensin converti ng enzyme [Enzymatic activity/volume] in Serum or Plasma [facility] Work Phone: aPTT.lupus sensitive (LA screen) [facility] Work Phone: aPTT.lupus sensitive W excess phospholipid actual/Normal (normalized LA confirm) [facility] Work Phone: aPTT.lupus sensitive /aPTT.lupus sensitive W excess phospholipid (screen to confirm ra [facility] tr Work Phone: dRVVT (LA screen) [facility] Work Phone: Electrophoresis: [id number] [facility] Work Phone: Electrophoresis: [id number] [facility] Work Phone: Electrophoresis: beta-globulin [facility] Work Phone: Electrophoresis: gamma globulin [facility] Work Phone: Globulin [Mass/volume] in Serum [facility] Work Phone: Hepatitis B core antibody measurement [facility] Work Phone: Hepatitis B virus byers rface Ab [Presence] in Serum [facility] Work Phone: Hepatitis B virus byers rface Ag [Presence] in Serum or Plasma by Immunoassay [facility] Work Phone: Hepatitis C virus Ab Signal/Cutoff in Serum or Plasma by Immunoassay [facility] Work Phone: Hepatitis C virus RN A [Presence] in Serum or Plasma by MALIKA with probe detection [facility] Work Phone: IgA [Mass/volume] in Serum or Plasma [facility] Work Phone: IgG [Mass/volume] in Serum or Plasma [facility] Work Phone: IgM [Mass/volume] in Serum or Plasma [facility] Work Phone: Immunofixation for Urine [facility] Work Phone: Lupus anticoagulant [Interpretation] in Platelet poor plasma [facility] tr Work Phone: Measurement of monoc lonal protein concentration [facility] tr Work Phone: Protein [Mass/volume] in Serum or Plasma [facility] Work Phone: Protein [Mass/volume] in Urine [facility] Work Phone: Reagin Ab [Presence] in Serum by RPR [facility] Work Phone: Serum immunofixation [facility] Work Phone: Thrombin time [facility] Work Phone: Thyroglobulin Ab [Un its/volume] in Serum or Plasma [facility] tr Work Phone: Thyroperoxidase Ab [ Units/volume] in Serum or Plasma [facility] tr Work Phone: Immunizations Immunization Date Immunization Notes Care Provider [facility] 05-30-2020 COVID-19 [id number] (Arnoldo) MD Sacha Monroy Work Phone: [facility] 05-02-2020 COVID-19 mRNA-[id number] (Arnoldo) MD Sacha Monroy Work Phone: [facility] Payers Date Payer Category Payer Self-pay [id number] 1965 Unknown [id number] [id number] [id number] 1965 Unknown [id number] 1965 Unknown [id number] [id number] [id number] 1965 Unknown [id number] [id number] 1961 Unknown [id number] Unknown [employer] [id number] Unknown [id number] [id number] Unknown [id number] Social History Date Type Detail Facility Start: 09-26-2020 End: 09-26-2020 Tobacco smoking status KSIS Never smoked tobacco (finding) [facility] Start: 1965 Sex Assigned At Female F [facility] Evaluation note Note Date & Type Note Facility Evaluation note No assessment information availa [facility] Work Phone: Family History No Family History Records Found Relationship Condition Age at Onset Recorded Date/T honey father Coronary artery disease Unknown Not Specified Diverticulitis of colon Unknown Mitral valve prolapse Unknown Advance Directives No Advanced Directives Records Found Advance Directive Response Recorded Date/ Time Advance Directives No September 24 9:13am Advance Directive Response Recorded Date/ Time Advance Directives No September 24 1 8:13am Chief Complaint and Reason for Visit Chief Complaint labs Chief Complaint Unknown Summary Purpose Additional Source Comments Care Teams (unrecognized sec tion and content) Team Status: Inactive Member Role Status Dates Sacha Monroy MD Primary Care Provider Active Vishal Card MD Attending Provider Active Team Status: Active Member Role Status Dates Sacha Monroy MD Primary Care Provider Active Team Status: Inactive Member Role Status Dates Sacha Monroy MD Primary Care Provider Active Anali Card MD Attending Provider Active Team Status: Inactive Member Role Status Óscar Sotelo Attending Provider Active Start: Roman howard 2023 End: May 25, 2023 Goals (unrecognized section and content) Goals may be documented in a n alternate sectionGoals may be documented in an alternate sectionGoals may be documented in an alternate sectionGoals may be documented in an alternate section INFORMATION SOURCE (unrecogn ized section and content) DATE CREATED AUTHOR 06/09/2022 [facility] DATE CREATED AUTHOR AUTHOR'S ORGANIZ ATION 05/26/2023 [facility] EPIC DATE CREATED AUTHOR AUTHOR'S ORGANIZ ATION 05/28/2023 [facility] FOR RECORDS PERTAINING TO PATIENTS WHO ARE OR HAVE BEEN ENROLLED IN A CHEMICAL DEPENDENCY/SUBSTANCEABUSE PROGRAM, SOME INFORMATION MAY BE OMITTED. This clinical summary was aggregated from multiple sources. Caution should be exercised in using it in the provision of clinical care. This summary normalizes information from multiple sources, and as a consequence, information in this document may materially change the coding, format and clinical context of patient data. In addition, data may be omitted in some cases. CLINICAL DECISIONS SHOULD BE BASED ON THE PRIMARY CLINICAL RECORDS. [facility] [employer] provides no warranty or guarantee of the accuracy or completeness of information in this document.
== END 2023-06-05 14:26 | disposition home or self-care (01) ==
LOC: CT 14:25
PROVIDERS: PCP Family Medicine; Visit Provider Family Medicine
DX: J18.9 Pneumonia, unspecified organism (principal)
CPT/HCPCS: 71250

== ENCOUNTER 2023-06-12 09:33 | Outpatient (OUT) | payer BC, SELFPAY ==
--- OUTSIDE RECORDS SUMMARY | 2023-06-12 09:36 | XMS_ITS | CCD ---
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 CPT Codes 92497 Specimen: [id number] Received: 05/26/23 Status: MARIELA Mcgrath Num: [id number] Spec Type: Surgical Subm Dr: Bill Sotelo Tissues: A Cervical Polyp (CERVICAL POLYP) Procedures: HE/2, Gross/Micro L4 Patient: Jolanta Ogdenn [id number] (Continued) Signed (signature on file) Chin-Naif Neely MD 05/27/23 [address] [facility] Alanine aminotransferase [En zymatic activity/volume] in Serum or PlasmaOrdered By: Anali Card on 02-12-2023 ALT [Catalytic activity/Vol] 70 U/L High 7-[address] [facility] Comment on above: Performed By: #### C BC, CMP #### [facility] [address] [place] [address] Albumin [Mass/volume] in Ser um or Plasma by Bromocresol green (BCG) dye binding methoOrdered By: Anali Card on 02-12-2023 Albumin BCG dye [Mass/Vol] 4.3 g/dL 3.5-5.[address] [facility] Alkaline phosphatase [Enzyma tic activity/volume] in Serum or PlasmaOrdered By: Anali Card on 02-12-2023 ALP [Catalytic activity/Vol] 80 U/L Normal 34-[address] [facility] Comment on above: Result Comment: PERF ORMED BY: [place] [address] PATHOLOGIST ONLINE MARKETING ANALYST OLGA LIDIA CORONA M.D. Performed By: #### C BC, CMP #### [facility] [address] Aspartate aminotransferase [ Enzymatic activity/volume] in Serum or PlasmaOrdered By: Anali Card on 02-12-2023 AST [Catalytic activity/Vol] 36 U/L Normal 13-[address] [facility] Comment on above: Performed By: #### C BC, CMP #### [place] [address] [place] Automated basophil %Ordered By: Anali Lalrow on 02-12-2023 Basophils/100 WBC (Bld) 0.4 % Normal . [facility] Comment on above: Performed By: #### C BC, CMP #### [address] Automated basophil countOrde red By: Anali Lalrow on 02-12-2023 Basophils (Bld) [#/Vol] 0.0 10*3/uL Normal 0.0-0.[address] [facility] Comment on above: Result Comment: PERF ORMED BY: [place] [address] PATHOLOGIST ONLINE MARKETING ANALYST OLGA LIDIA CORONA M.D. Performed By: #### C BC, CMP #### [address] Automated blood monocyte cou ntOrdered By: Analigardenia Card on 02-12-2023 Monocytes (Bld) [#/Vol] 0.4 10*3/uL Normal 0.0-0.[address] [facility] Comment on above: Performed By: #### C BC, CMP #### [address] Automated eosinophil %Ordere d By: Anali Lalrow on 02-12-2023 Eosinophils/100 WBC (Bld) 2.1 % Normal . [facility] Comment on above: Performed By: #### C BC, CMP #### [address] Automated eosinophil countOr dered By: Anali Lalrow on 02-12-2023 Eosinophils (Bld) [#/Vol] 0.1 10*3/uL Normal 0.0-0.[address] [facility] Comment on above: Performed By: #### C BC, CMP #### [address] Automated monocyte %Ordered By: Anali Kyaw on 02-12-2023 Monocytes/100 WBC (Bld) 8.2 % Normal . [facility] Comment on above: Performed By: #### C BC, CMP #### [address] Automated neutrophil %Ordere d By: Anali Card on 02-12-2023 Neutrophils/100 WBC (Bld) 58.3 % Normal . [facility] Comment on above: Performed By: #### C BC, CMP #### [address] Bilirubin.total [Mass/volume ] in Serum or PlasmaOrdered By: Anali Lalrow on 02-12-2023 Bilirubin [Mass/Vol] 0.5 mg/dL Normal 0.3-1.0 [facility] Comment on above: Performed By: #### C BC, CMP #### [address] Calcium [Mass/volume] in Ser um or PlasmaOrdered By: Anali Lalrow on 02-12-2023 Calcium [Mass/Vol] 9.2 mg/dL Normal 8.6-10.3 [facility] Comment on above: Performed By: #### C BC, CMP #### [address] Carbon dioxide, total [Moles /volume] in Serum or PlasmaOrdered By: Anali Card on 02-12-2023 CO2 [Moles/Vol] 28.6 mmol/L Normal 21.0-31.0 [facility] Comment on above: Performed By: #### C BC, CMP #### [place] [address] [place] Chloride [Moles/volume] in S tex or PlasmaOrdered By: Anali Lalrow on 02-12-2023 Chloride [Moles/Vol] 106 mmol/L Normal 98-107 [facility] Comment on above: Performed By: #### C BC, CMP #### [address] Complete Blood Count Auto Di ffon 02-12-2023 Mean Corpuscular HGB Conc 33.5 g/dL Normal 32.0-35.[address] [facility] Comment on above: Performed By: #### C BC, CMP #### [address] NRBC% 0.1 /100{WBC} Normal 0-0.[address] [facility] Comment on above: Performed By: #### C BC, CMP #### [address] Comprehensive Metabolic Pane kim 02-12-2023 Albumin [Mass/Vol] 4.3 g/dL Normal 3.5-5.7 [facility] Comment on above: Performed By: #### C BC, CMP #### [address] GFR/1.73 sq M.predicted MDRD (S/P/Bld) [Vol rate/Area] mL/min/{1.73_m2} Normal [facility] Comment on above: Performed By: #### C BC, CMP #### [address] Creatinine [Mass/volume] in Serum or PlasmaOrdered By: Anali Card on 02-12-2023 Creatinine [Mass/Vol] 0.93 mg/dL Normal 0.60-1.20 [facility] Comment on above: Performed By: #### C BC, CMP #### [address] Erythrocyte distribution wid th [Ratio] by Automated countOrdered By: Anali Card on 02-12-2023 Erythrocyte distribution width (RBC) [Ratio] 14.5 % Normal 11.9-15.[address] [facility] Comment on above: Performed By: #### C BC, CMP #### [address] Erythrocytes [#/volume] in B lood by Automated countOrdered By: Anali Card on 02-12-2023 RBC (Bld) [#/Vol] 4.32 10*6/uL Normal 3.60-5.00 [facility] Comment on above: Performed By: #### C BC, CMP #### [address] Glucose [Mass/volume] in Ser um or PlasmaOrdered By: Anali Card on 02-12-2023 Glucose [Mass/Vol] 107 mg/dL High 70-100 [facility] Comment on above: ADA recommended refe rence rangeRandom Glucose Reference Range is dependent on time and content of last meal. Glucose of more than 200 mg/dL in a nonstressed, ambulatory subject supports the diagnosis of Diabetes Mellitus. Result Comment: [place] om Glucose Reference Range is dependent on time and content of last meal. Glucose of more than 200 mg/dL in a nonstressed, ambulatory subject supports the diagnosis of Diabetes Mellitus. ADA recommended reference range Performed By: #### C BC, CMP #### [address] Hematocrit [Volume Fraction] of Blood by Automated countOrdered By: Anali Card on 02-12-2023 Hematocrit (Bld) [Volume fraction] 39.2 % Normal 34.0-46.[address] [facility] Comment on above: Performed By: #### C BC, CMP #### [address] Hemoglobin [Mass/volume] in BloodOrdered By: Anali Card on 02-12-2023 Hemoglobin (Bld) [Mass/Vol] 13.1 g/dL Normal 11.8-15.[address] [facility] Comment on above: Performed By: #### C BC, CMP #### [address] Leukocytes [#/volume] correc henry for nucleated erythrocytes in Blood by Automated counOrdered By: Anali Card on 02-12-2023 WBC corrected for nucl RBC Auto (Bld) [#/Vol] 4.9 10*3/uL 3.8-11.[address] [facility] Leukocytes [#/volume] in Blo od by Automated countOrdered By: Anali Card on 02-12-2023 WBC (Bld) [#/Vol] 4.9 10*3/uL Normal 3.8-11.6 [facility] Comment on above: Performed By: #### C BC, CMP #### [address] Lymphocytes [#/volume] in Bl ood by Automated countOrdered By: Anali Lalrow on 02-12-2023 Lymphocytes (Bld) [#/Vol] 1.5 10*3/uL Normal 1.00-4.[address] [facility] Comment on above: Performed By: #### C BC, CMP #### [address] Lymphocytes/100 leukocytes i n Blood by Automated countOrdered By: Anali Kyaw on 02-12-2023 Lymphocytes/100 WBC (Bld) 31.0 % Normal . [facility] Comment on above: Performed By: #### C BC, CMP #### [address] MCH [Entitic mass] by Automa henry countOrdered By: Anali Lalrow on 02-12-2023 MCH (RBC) [Entitic mass] 30.4 pg Normal 24.7-34.[address] [facility] Comment on above: Performed By: #### C BC, CMP #### [address] MCHC Auto (RBC) [Mass/Vol]Or dered By: Anali Kyaw on 02-12-2023 MCHC (RBC) [Mass/Vol] 33.5 g/dL 32.0-35.0 [facility] MCV [Entitic volume] by Auto mated countOrdered By: Anali Lalrow on 02-12-2023 MCV (RBC) [Entitic vol] 90.8 fL Normal 80-100 [facility] Comment on above: Performed By: #### C BC, CMP #### [place] [address] [place] Neutrophils [#/volume] in Bl ood by Automated countOrdered By: Anali Lalrow on 02-12-2023 Neutrophils (Bld) [#/Vol] 2.9 10*3/uL Normal 1.8-7.[address] [facility] Comment on above: Performed By: #### C BC, CMP #### [address] No Panel InformationOrdered By: Anali Card on 02-12-2023 Estimated GFR (CKD-EPI) > 60.0 mL/Min [facility] Creatinine Clearance (Chem N/A [facility] Nucleated erythrocytes [Pres ence] in Blood by Automated countOrdered By: Anali Lalrow on 02-12-2023 Nucleated RBC Auto Ql (Bld) 0.1 /100{WBC} 0-0.[address] [facility] Platelet mean volume [Entiti c volume] in Blood by Automated countOrdered By: Anali Lalrow on 02-12-2023 Platelet mean volume (Bld) [Entitic vol] 9.6 fL Normal 6.3-10.[address] [facility] Comment on above: Performed By: #### C BC, CMP #### [address] Platelets [#/volume] in Bloo d by Automated countOrdered By: Anali Lalrow on 02-12-2023 Platelets (Bld) [#/Vol] 202 10*3/uL Normal 150-[address] [facility] Comment on above: Performed By: #### C BC, CMP #### [address] Potassium [Moles/volume] in Serum or PlasmaOrdered By: Anali Card on 02-12-2023 Potassium [Moles/Vol] 4.6 mmol/L Normal 3.5-5.1 [facility] Comment on above: Performed By: #### C BC, CMP #### [address] Protein [Mass/volume] in Ser um or PlasmaOrdered By: Anali Card on 02-12-2023 Protein [Mass/Vol] 6.6 g/dL Normal 6.4-8.9 [facility] Comment on above: Performed By: #### C BC, CMP #### [address] Serum globulin measurement b y calculation (mass/volume)Ordered By: Anali Card on 02-12-2023 Globulin (S) [Mass/Vol] 2.3 g/dL Normal [facility] Comment on above: Performed By: #### C BC, CMP #### [address] Serum or plasma albumin/glob ulin mass ratioOrdered By: Anali Card on 02-12-2023 Albumin/Globulin [Mass ratio] 1.9 {ratio} Normal [facility] Comment on above: Performed By: #### C BC, CMP #### [address] Serum or plasma anion gap de terminationOrdered By: Anali Card on 02-12-2023 Anion gap [Moles/Vol] 11.0 mmol/L Normal 6.0-15.0 [facility] Comment on above: Performed By: #### C BC, CMP #### [address] Sodium [Moles/volume] in Ser um or PlasmaOrdered By: Anali Lalrow on 02-12-2023 Sodium [Moles/Vol] 141 mmol/L Normal 136-145 [facility] Comment on above: Performed By: #### C BC, CMP #### [address] Urea nitrogen [Mass/volume] in Serum or PlasmaOrdered By: Anali Card on 02-12-2023 Urea nitrogen [Mass/Vol] 16 mg/dL Normal 7-[address] [facility] Comment on above: Performed By: #### C BC, CMP #### [address] ANTICARDIOLIPIN AB (SELINA) IGG on 06-09-2022 Anticardiolipin Ab,IgG,Qn <9 Normal 0-14 [facility] Comment on above: Result Comment: Nega tive: <15 Indeterminate: 15 - 20 Low-Med Positive: >20 - 80 High Positive: >80 Performed By: #### C ARDLIP #### [facility] [address] [address] [address] Allison Neely CBC AUTO DIFFon 02-03-2023 BASO # 0.0 103/ul Normal 0.0-0.1 [facility] Comment on above: Performed By: #### C BC #### [facility] [address] [place] [address] Dr. Allison Neely Basophils/100 WBC (Bld) 0.5 % Normal 0.2-2.0 [facility] Comment on above: Performed By: #### C BC #### [facility] [address] [place] [address] Dr. Allison Neely EO # 0.1 103/ul Normal 0.0-0.7 [facility] Comment on above: Performed By: #### C BC #### [facility] [address] [place] [address] Dr. Allison Neely Eosinophils/100 WBC (Bld) 0.9 % Normal 0.9-7.0 [facility] Comment on above: Performed By: #### C BC #### [facility] [address] [place] [address] Dr. Allison Neely Erythrocyte distribution width (RBC) [Ratio] 13.7 % Normal 11.0-15.0 [facility] Comment on above: Performed By: #### C BC #### [facility] [address] [place] [address] Dr. Allison Neely Hematocrit (Bld) [Volume fraction] 41.8 % Normal 36.0-48.0 [facility] Comment on above: Performed By: #### C BC #### [facility] [address] [place] [address] Dr. Allison Neely Hemoglobin (Bld) [Mass/Vol] 13.0 g/dL Normal 12.0-16.0 [facility] Comment on above: Performed By: #### C BC #### [facility] [address] [place] [address] Dr. Allison Neely IG # 0.01 10e3/ul Normal 0.00-0.03 [facility] Comment on above: Performed By: #### C BC #### [facility] [address] [place] [address] Dr. Allison Neely IG % 0.2 % Normal 0.0-0.5 [facility] Comment on above: Performed By: #### C BC #### [facility] [address] [place] [address] Dr. Allison Neely LYMPH # 1.7 103/ul Normal 1.2-3.8 [facility] Comment on above: Performed By: #### C BC #### [facility] [address] [place] [address] Dr. Allison Neely Lymphocytes/100 WBC (Bld) 30.5 % Normal 20.5-60.0 [facility] Comment on above: Performed By: #### C BC #### [facility] [address] [place] [address] Dr. Allison Neely MANUAL DIFF REQ NO Normal [facility] Comment on above: Performed By: #### C BC #### [facility] [address] [place] [address] Dr. Allison Neely MCH (RBC) [Entitic mass] 29.7 pg Normal 26.7-34.0 [facility] Comment on above: Performed By: #### C BC #### [facility] [address] [place] [address] Dr. Allison Neely MCHC (RBC) [Mass/Vol] 31.1 g/dL Normal 29.9-35.2 [facility] Comment on above: Performed By: #### C BC #### [facility] [address] [place] [address] Dr. Allison Neely MCV (RBC) [Entitic vol] 95.7 fL Normal 81.0-99.0 [facility] Comment on above: Performed By: #### C BC #### [facility] [address] [place] [address] Dr. Allison Neely MONO # 0.3 103/ul Normal 0.3-0.8 [facility] Comment on above: Performed By: #### C BC #### [facility] [address] [place] [address] Dr. Allison Neely Monocytes/100 WBC (Bld) 5.1 % Normal 1.7-12.0 [facility] Comment on above: Performed By: #### C BC #### [facility] [address] [place] [address] Dr. Allison Neely NEUT # 3.5 103/ul Normal 1.4-6.5 [facility] Comment on above: Performed By: #### C BC #### [facility] [address] [place] [address] Dr. Allison Neely Neutrophils/100 WBC (Bld) 62.8 % Normal 43.0-75.0 [facility] Comment on above: Performed By: #### C BC #### [facility] [address] [place] [address] Dr. Allison Neely Platelet mean volume (Bld) [Entitic vol] 12.0 fL Normal 9.5-13.5 [facility] Comment on above: Performed By: #### C BC #### [facility] [address] [place] [address] Dr. Allison Neely PLT 274 103/ul Normal 150-450 [facility] Comment on above: Performed By: #### C BC #### [facility] [address] [place] [address] Dr. Allison Neely RBC 4.37 106/ul Normal 4.20-5.40 [facility] Comment on above: Performed By: #### C BC #### [facility] [address] [place] [address] Dr. Allison Neely WBC 5.6 103/ul Normal 4.0-11.0 [facility] Comment on above: Performed By: #### C BC #### [facility] [address] [place] [address] Dr. Allison Neely PROF 14(COMP METB)on 023 Albumin [Mass/Vol] 4.0 g/dL Normal 3.4-5.0 [facility] Comment on above: Performed By: #### C MP #### [facility] [address] [place] [address] Dr. Allison Neely Albumin/Globulin [Mass ratio] 1.3 {ratio} Normal [facility] Comment on above: Performed By: #### C MP #### [facility] [address] [address] [address] Allison Neely ALP [Catalytic activity/Vol] 103 U/L Normal 46-116 [facility] Comment on above: Performed By: #### C MP #### [facility] [address] [address] [address] Allison Neely ALT [Catalytic activity/Vol] 69 U/L Critically high 14-59 [facility] Comment on above: Performed By: #### C MP #### [facility] [address] [address] [address] Allison Neely Anion gap [Moles/Vol] 12.8 mmol/L Normal [facility] Comment on above: Performed By: #### C MP #### [facility] [address] [place] [address] Dr. Allison Neely AST [Catalytic activity/Vol] 30 U/L Normal 15-37 [facility] Comment on above: Performed By: #### C MP #### [facility] [address] [address] [address] Allison Neely Bilirubin [Mass/Vol] 0.4 mg/dL Normal 0.2-1.0 [facility] Comment on above: Performed By: #### C MP #### [facility] [address] [address] [address] Allison Neely Calcium [Mass/Vol] 9.3 mg/dL Normal 8.5-10.1 [facility] Comment on above: Performed By: #### C MP #### [facility] [address] [address] [address] Allison Neely Chloride [Moles/Vol] 101 mmol/L Normal 98-107 [facility] Comment on above: Performed By: #### C MP #### [facility] [address] [address] [address] Allison Neely CO2 [Moles/Vol] 29.2 mmol/L Normal 21.0-32.0 [facility] Comment on above: Performed By: #### C MP #### [facility] [address] [address] [address] Allison Neely Creatinine [Mass/Vol] 0.99 mg/dL Normal 0.55-1.02 [facility] Comment on above: Performed By: #### C MP #### [facility] [address] [address] [address] Allison Neely EGFR-AF GERMAN >60 Normal >=60 [facility] Comment on above: Performed By: #### C MP #### [facility] [address] [address] [address] Allison Neely EGFR-NON AF GERMAN 58 mL/min/1.73m2 Critically low >=60 [facility] Comment on above: Performed By: #### C MP #### [facility] [address] [place] [address] Dr. Allison Neely Globulin (S) [Mass/Vol] 3.0 g/dL Normal [facility] Comment on above: Performed By: #### C MP #### [facility] [address] [place] [address] Dr. Allison Neely Glucose [Mass/Vol] 157 mg/dL Critically high 74-106 [facility] Comment on above: Performed By: #### C MP #### [facility] [address] [place] [address] Dr. Allison Neely Potassium [Moles/Vol] 4.0 mmol/L Normal 3.5-5.1 [facility] Comment on above: Performed By: #### C MP #### [facility] [address] [place] [address] Dr. Allison Neely Protein [Mass/Vol] 7.0 g/dL Normal 6.4-8.2 [facility] Comment on above: Performed By: #### C MP #### [facility] [address] [place] [address] Dr. Allison Neely Sodium [Moles/Vol] 139 mmol/L Normal 136-145 [facility] Comment on above: Performed By: #### C MP #### [facility] [address] [place] [address] Dr. Allison Neely Urea nitrogen [Mass/Vol] 26.0 mg/dL Critically high 7.0-18 .0 [facility] Comment on above: Performed By: #### C MP #### [facility] [address] [place] [address] Dr. Allison Neely Urea nitrogen/Creatinine [Mass ratio] 26.3 mg/mg Normal [facility] Comment on above: Performed By: #### C MP #### [facility] [address] [place] [address] Dr. Allison Neely ANTICARDIOLIPIN AB (SELINA) IGG on 12-26-2021 Anticardiolipin Ab,IgG,Qn <9 Normal 0-14 [facility] Comment on above: Result Comment: Nega tive: <15 Indeterminate: 15 - 20 Low-Med Positive: >20 - 80 High Positive: >80 Performed By: #### C ARDLIP #### [facility] [address] [place] [address] Dr. Allison Neely PAP ACOG PANEL 2: 30 to 65on 08-29-2021 . . Normal [facility] Comment on above: Result Comment: Perf ormed at: WB Performed By: #### [id number] #### [facility] [address] [place] [address] Dr. Allison Neely Age Gdln ACOG Testing 30-65 Normal [facility] Comment on above: Performed By: #### [id number] #### [facility] [address] [place] [address] Dr. Allison Neely DIAGNOSIS: Comment Normal [facility] Comment on above: Result Comment: NEGA TIVE FOR INTRAEPITHELIAL LESION OR MALIGNANCY. CELLULAR CHANGES ASSOCIATED WITH ATROPHY ARE PRESENT. Performed at: WB Performed By: #### [id number] #### [facility] [address] [place] [address] Dr. Allison Neely HPV Aptima Negative Normal Negative [facility] Comment on above: Result Comment: This nucleic acid amplification test detects fourteen high-risk HPV types (16,18,31,33,35,39,45,51,52,56,58,59,66,68) without differentiation. Performed at: =G Performed By: #### [id number] #### [facility] [address] [place] [address] Dr. Allison Neely Methodology: Comment Normal [facility] Comment on above: Result Comment: This liquid based ThinPrep(R) pap test was screened with the use of an image guided system. Performed at: WB Performed By: #### [id number] #### [facility] [address] [place] [address] Dr. Allison Neely Note: Comment Normal [facility] Comment on above: Result Comment: The Pap smear is a screening test designed to aid in the detection of premalignant and malignant conditions of the uterine cervix. It is not a diagnostic procedure and should not be used as the sole means of detecting cervical cancer. Both false-positive and false-negative reports do occur. . Performed at: WB Performed By: #### [id number] #### [facility] [address] [place] [address] Dr. Allison Neely Performed by: Comment Normal [facility] Comment on above: Result Comment: Nuno Solis, Foundry Patternmaker (ASCP) Performed at: WB Performed By: #### [id number] #### [facility] Laboratory [address] [place] [address] Dr. Allison Neely Specimen adequacy: Comment Normal [facility] Comment on above: Result Comment: Sati sfactory for evaluation. Endocervical component may not be distinguished in cases of atrophy. Performed at: WB Performed By: #### [id number] #### [facility] [address] [place] [address] Dr. Allison Neely Activated partial thrombopla stin time (aPTT) in platelet poor plasma by coagulation aOrdered By: Anali Card on 08-26-2021 aPTT Coag (PPP) [Time] 33.9 s 25.1-36.5 [facility] Albumin [Mass/volume] in Ser um or PlasmaOrdered By: Anali Card on 08-26-2021 Albumin [Mass/Vol] 4.0 g/dL [facility] Albumin/Protein.total in 24 hour Urine by ElectrophoresisOrdered By: Anali Card on 08-26-2021 Albumin Elph (24H U) [Mass fraction] 22.6 % [facility] Automated erythrocytes count in urine sediment (number/area)Ordered By: Anali Card on 08-26-2021 RBC Auto (Urine sed) [#/Area] 0-1 [HPF] [facility] Automated leukocytes count i n urine sediment (number/area)Ordered By: Anali Card on 08-26-2021 WBC Auto (Urine sed) [#/Area] 0-1 [HPF] [facility] Basophils Auto (Bld) [#/Vol] Ordered By: Anali Card on 08-26-2021 Basophils (Bld) [#/Vol] 0.0 10*3/uL 0.0-0.[address] [facility] Basophils/100 WBC Auto (Bld) Ordered By: Anali Card on 08-26-2021 Basophils/100 WBC (Bld) 0.8 % [facility] Bilirubin Test strip Ql (U)O rdered By: Anali Card on 08-26-2021 Bilirubin Ql (U) Negative Negative [facility] Blood hemoglobin measurement (mass/volume)Ordered By: Anali Card on 08-26-2021 Hemoglobin (Bld) [Mass/Vol] 13.5 g/dL 11.8-15.[address] [facility] Blood leukocytes automated c ount (number/volume)Ordered By: Anali Card on 08-26-2021 WBC (Bld) [#/Vol] 3.3 10*3/uL 4.5-11.0 [facility] Body fluid albumin measureme nt (mass/volume)Ordered By: Anali Card on 08-26-2021 Albumin (Body fld) [Mass/Vol] 4.3 g/dL 3.2-5.[address] [facility] Color Auto (U)Ordered By: Venkat Card on 08-26-2021 Color (U) Yellow Yellow [facility] Creatine kinase [Enzymatic a ctivity/volume] in Serum or PlasmaOrdered By: Anali Card on 08-26-2021 CK [Catalytic activity/Vol] 137 U/L 22-[address] [facility] Creatinine and Glomerular fi ltration rate.predicted panel (S/P/Bld)Ordered By: Anali Card on 08-26-2021 Creatinine [Mass/Vol] 0.91 mg/dL 0.44-1.03 [facility] Dilute Morgan's viper venom timeOrdered By: Anali Card on 08-26-2021 dRVVT Coag (PPP) [Time] 39.0 s F [facility] Eosinophils Auto (Bld) [#/Vo l]Ordered By: Anali Card on 08-26-2021 Eosinophils (Bld) [#/Vol] 0.1 10*3/uL 0.0-0.[address] [facility] Eosinophils/100 WBC Auto (Bl d)Ordered By: Anali Card on 08-26-2021 Eosinophils/100 WBC (Bld) 4.2 % [facility] Erythrocyte distribution wid th Auto (RBC) [Ratio]Ordered By: Anali Card on 08-26-2021 Erythrocyte distribution width (RBC) [Ratio] 13.6 % 11.9-15.[address] [facility] Erythrocyte sedimentation ra te by Photometric methodOrdered By: Anali Card on 08-26-2021 ESR Photometric method (Bld) [Velocity] 9 mm/hr 0-[address] [facility] Estimated glomerular filtrat ion rate (GFR) non- AmericanOrdered By: Anali Card on 08-26-2021 GFR/1.73 sq M.predicted among non-blacks MDRD (S/P/Bld) [Vol rate/Area] > 60 mL/Min [facility] Gamma globulin/Protein.total in 24 hour Urine by ElectrophoresisOrdered By: Anali Card on 08-26-2021 Gamma globulin Elph (24H U) [Mass fraction] 16.7 % [facility] Globulin Calc (S) [Mass/Vol] Ordered By: Anali Card on 08-26-2021 Globulin (S) [Mass/Vol] 2.4 g/dL [facility] Hematocrit Auto (Bld) [Volum e fraction]Ordered By: Anali Card on 08-26-2021 Hematocrit (Bld) [Volume fraction] 39.9 % 34.0-46.[address] [facility] Hepatitis B virus surface Ag [Presence] in Serum or Plasma by ImmunoassayOrdered By: Anali Card on 08-26-2021 HBV surface Ag IA Ql Negative Negative [facility] Hepatitis C virus RNA [Prese nce] in Serum or Plasma by MALIKA with probe detectionOrdered By: Anali Card on 08-26-2021 HCV RNA MALIKA+probe Ql N/A [facility] IgA [Mass/volume] in Serum o r PlasmaOrdered By: Anali Card on 08-26-2021 IgA [Mass/Vol] 103 mg/dL [facility] IgG [Mass/volume] in Serum o r PlasmaOrdered By: Anali Card on 08-26-2021 IgG [Mass/Vol] 617 mg/dL [facility] IgM [Mass/volume] in Serum o r PlasmaOrdered By: Anali Card on 08-26-2021 IgM [Mass/Vol] 226 mg/dL [facility] Comment on above: Performed at: [email or web address] [place] [id number] Physician Relations Specialist: Prakash Ballesteros PhD, Phone: [phone] Immunofixation for UrineOrde red By: Anali Card on 08-26-2021 Interpretation Immunofixation (U) [Interp] See comment [facility] Comment on above: No monoclonality det ected. Performed at: [email or web address] [address] [id number] Physician Relations Specialist: Prakash Ballesteros PhD, Phone: [phone] Ketones Auto test strip (U) [Mass/Vol]Ordered By: Anali Card on 08-26-2021 Ketones (U) [Mass/Vol] Negative Negative [facility] Laboratory - CoagulationOrde red By: Anali Card on 08-26-2021 PT Coag (PPP) [Time] 11.1 s 9.0-12.9 [facility] Laboratory - Hematology and Cell countsOrdered By: Anali Card on 08-26-2021 Nucleated RBC/100 WBC (Bld) [Ratio] 0.1 % 0-0.[address] [facility] Laboratory - UrinalysisOrder ed By: Anali Card on 08-26-2021 Hyaline casts LM Ql (Urine sed) 0-8 [LPF] [facility] Lupus anticoagulant [Interpr etation] in Platelet poor plasmaOrdered By: Anali Card on 08-26-2021 Lupus anticoagulant (PPP) [Interp] Comment: [facility] Comment on above: No lupus anticoagula nt was detected. Performed at: - [address] [id number] Physician Relations Specialist: Amanda Olmedo MD, Phone: [phone] Lymphocytes Auto (Bld) [#/Vo l]Ordered By: Anali Card on 08-26-2021 Lymphocytes (Bld) [#/Vol] 1.2 10*3/uL 1.00-4.[address] [facility] Lymphocytes/100 WBC Auto (Bl d)Ordered By: Anali Card on 08-26-2021 Lymphocytes/100 WBC (Bld) 37.9 % [facility] MCH Auto (RBC) [Entitic mass ]Ordered By: Anali Card on 08-26-2021 MCH (RBC) [Entitic mass] 30.7 pg 24.7-34.[address] [facility] MCHC Auto (RBC) [Mass/Vol]Or dered By: Anali Card on 08-26-2021 MCHC (RBC) [Mass/Vol] 33.8 g/dL 32.0-35.0 [facility] MCV Auto (RBC) [Entitic vol] Ordered By: Anali Card on 08-26-2021 MCV (RBC) [Entitic vol] 90.6 fL 80-100 [facility] Monocytes Auto (Bld) [#/Vol] Ordered By: Anali aCrd on 08-26-2021 Monocytes (Bld) [#/Vol] 0.3 10*3/uL 0.0-0.[address] [facility] Monocytes/100 WBC Auto (Bld) Ordered By: Anali Card on 08-26-2021 Monocytes/100 WBC (Bld) 8.5 % [facility] Neutrophils Auto (Bld) [#/Vo l]Ordered By: Anali Card on 08-26-2021 Neutrophils (Bld) [#/Vol] 1.6 10*3/uL 1.8-7.[address] [facility] Neutrophils/100 WBC Auto (Bl d)Ordered By: Anali Kyaw on 08-26-2021 Neutrophils/100 WBC (Bld) 48.6 % [facility] Nitrite Test strip Ql (U)Ord ered By: Anali Card on 08-26-2021 Nitrite Ql (U) Negative Negative [facility] No Panel InformationOrdered By: Anali Card on 08-26-2021 Estimated GFR () > 60 mL/Min [facility] Comment on above: GFR estimated refere nce range: According to KDOQI guidelines, <60 ml/min/1.73m2 is sufficient to diagnose a patient with chronic kidney disease. Hepatitis B Core Total Antibody Negative Negative [facility] Comment on above: Performed at: [email or web address] - [facility] [address] [id number] Physician Relations Specialist: Prakash Ballesteros PhD, Phone: [phone] Hepatitis C RNA Comment N/A [facility] Creatinine Clearance (Chem N/A [facility] Protein Electrophoresis M-Shawn Not observed g/dL Not Observed [facility] Protein Electrophoresis Note See comment [facility] Comment on above: Protein electrophore sis scan will follow via computer, mail, or test engine evaluator delivery. Serum Immunofixation See comment [facility] Comment on above: No monoclonality det ected. Urine Random Prot Electrophor Note See comment [facility] Comment on above: Protein electrophore sis scan will follow via computer, mail, or test engine evaluator delivery. Performed at: [email or web address] - [facility] [address] [id number] Physician Relations Specialist: Prakash Ballesteros PhD, Phone: [phone] Platelet mean volume Auto (B ld) [Entitic vol]Ordered By: Anali Card on 08-26-2021 Platelet mean volume (Bld) [Entitic vol] 9.9 fL 6.3-10.[address] [facility] Platelet poor plasma interna tional normalized ratio (INR) by coagulation assay (relatOrdered By: Anali Card on 08-26-2021 INR Coag (PPP) [Relative time] 1.0 {INR} [facility] Comment on above: INR Therapeutic Rang e [...] actual/normal Coag (PPP) [Relative time] 35.[address] [facility] Platelets Auto (Bld) [#/Vol] Ordered By: Anali Card on 08-26-2021 Platelets (Bld) [#/Vol] 243 10*3/uL 150-[address] [facility] Protein Auto test strip (U) [Mass/Vol]Ordered By: Anali Card on 08-26-2021 Protein (U) [Mass/Vol] Negative Negative [facility] Protein [Mass/volume] in Ser um or PlasmaOrdered By: Anali Card on 08-26-2021 Protein [Mass/Vol] 6.7 g/dL 6.1-7.9 [facility] Protein [Mass/Vol] 6.5 g/dL [facility] Protein [Mass/volume] in Uri neOrdered By: Anali Card on 08-26-2021 Protein (U) [Mass/Vol] 9.0 mg/dL Not Estab. Fi [facility] Protein.monoclonal/Protein.t otal in 24 hour Urine by ElectrophoresisOrdered By: Anali Card on 08-26-2021 Protein.monoclonal Elph (24H U) [Mass fraction] Not observed % Not Observed [facility] RBC Auto (Bld) [#/Vol]Ordere d By: Anali Card on 08-26-2021 RBC (Bld) [#/Vol] 4.40 10*6/uL 3.60-5.00 [facility] Reagin Ab [Presence] in Seru m by RPROrdered By: Anali Card on 08-26-2021 Reagin Ab RPR Ql (S) Non-Reactive Non Reactive [facility] Comment on above: Performed at: [facility] [place] [address] Physician Relations Specialist: Prakash Ballesteros PhD, Phone: [phone] Serum angiotensin converting enzyme (MARC) measurementOrdered By: Anali Card on 08-26-2021 Angiotensin converting enzyme [Catalytic activity/Vol] 33 U/L [facility] Comment on above: Performed at: [facility] [place] [address] Physician Relations Specialist: Prakash Ballesteros PhD, Phone: [phone] Serum globulin measurement ( mass/volume)Ordered By: Anali Card on 08-26-2021 Globulin (S) [Mass/Vol] 2.5 g/dL [facility] Serum hepatitis B virus surf marc antibody detectionOrdered By: Anali Card on 08-26-2021 HBV surface Ab Ql (S) Reactive [facility] Comment on above: Non Reactive: Incons istent with immunity, less than 10 mIU/mL Reactive: Consistent with immunity, greater than 9.9 mIU/mL Serum or plasma C reactive p rotein measurement (mass/volume)Ordered By: Anali Card on 08-26-2021 CRP [Mass/Vol] 0.5 mg/dL 0.0-1.[address] [facility] Serum or plasma alanine shell otransferase measurement without P-5'-P (enzymatic activiOrdered By: Anali Card on 08-26-2021 ALT No additional P-5'-P [Catalytic activity/Vol] 37 U/L 10-60 [facility] Serum or plasma albumin/glob ulin mass ratioOrdered By: Anali Card on 08-26-2021 Albumin/Globulin [Mass ratio] 1.8 {ratio} [facility] Albumin/Globulin [Mass ratio] 1.6 {ratio} [facility] Serum or plasma alkaline kiesha sphatase measurement (enzymatic activity/volume)Ordered By: Anali Card on 08-26-2021 ALP [Catalytic activity/Vol] 41 U/L 32-[address] [facility] Serum or plasma alpha 1 glob ulin measurement by electrophoresis (mass/volume)Ordered By: Anali Card on 08-26-2021 Alpha 1 globulin Elph [Mass/Vol] 0.2 g/dL [facility] Serum or plasma alpha 2 glob ulin measurement by electrophoresis (mass/volume)Ordered By: Anali Card on 08-26-2021 Alpha 2 globulin Elph [Mass/Vol] 0.6 g/dL [facility] Serum or plasma aspartate am inotransferase measurement (enzymatic activity/volume)Ordered By: Anali Card on 08-26-2021 AST [Catalytic activity/Vol] 26 U/L 10-[address] [facility] Serum or plasma beta globuli n measurement by electrophoresis (mass/volume)Ordered By: Anali Card on 08-26-2021 Beta globulin Elph [Mass/Vol] 1.0 g/dL [facility] Serum or plasma calcium lenka urement (mass/volume)Ordered By: Anali Card on 08-26-2021 Calcium [Mass/Vol] 9.6 mg/dL 8.2-10.2 [facility] Serum or plasma chloride bob surement (moles/volume)Ordered By: Anali Card on 08-26-2021 Chloride [Moles/Vol] 105 mmol/L 95-114 [facility] Serum or plasma gamma globul in measurement by electrophoresis (mass/volume)Ordered By: Anali Card on 08-26-2021 Gamma globulin Elph [Mass/Vol] 0.7 g/dL [facility] Serum or plasma glucose lenka urement (mass/volume)Ordered By: Anali Card on 08-26-2021 Glucose [Mass/Vol] 108 mg/dL 70-100 [facility] Comment on above: ADA recommended refe rence [...] 08-26-2021 HCV Ab IA Ql See comment [facility] Comment on above: Negative Not infected with HCV, unless recent infection is suspected or other evidence exists to indicate HCV infection. Effective September 02, 2021 HCV Antibody reflex to MALIKA will be made non-orderable. This will affect any Custom Profile that includes [id number] HCV Antibody reflex to MALIKA. [employer] offers order code [id number] HCV Antibody RFX to Quant PCR as an alternative. Performed at: [facility] [address] [id number] Physician Relations Specialist: Prakash Ballesteros PhD, Phone: [phone] Serum or plasma hepatitis C virus antibody signal/cutoff ratio by immunoassay (relatiOrdered By: Anali Card on 08-26-2021 HCV Ab Signal/Cutoff IA [Rel units/Vol] <0.1 s/co ratio [facility] Serum or plasma potassium me asurement (moles/volume)Ordered By: Anali Card on 08-26-2021 Potassium [Moles/Vol] 4.5 mmol/L 3.5-5.1 [facility] Serum or plasma sodium measu rement (moles/volume)Ordered By: Anali Card on 08-26-2021 Sodium [Moles/Vol] 142 mmol/L 136-146 [facility] Serum or plasma thyroglobuli n antibody assay (units/volume)Ordered By: Anali Card on 08-26-2021 Thyroglobulin Ab Qn [IU]/mL [facility] Comment on above: Thyroglobulin Antibo dy measured by [employer] [place] Methodology Performed at: [employer] [id number] Physician Relations Specialist: Prakash Ballesteros PhD, Phone: [phone] Serum or plasma thyroperoxid ase antibody assay (units/volume)Ordered By: Anali Card on 08-26-2021 TPO Ab Qn 12 [IU]/mL [facility] Comment on above: Performed at: [address] [id number] Physician Relations Specialist: Prakash Ballesteros PhD, Phone: [phone] Serum or plasma total biliru bin measurement (mass/volume)Ordered By: Anali Card on 08-26-2021 Bilirubin [Mass/Vol] 0.5 mg/dL 0.3-1.2 [facility] Serum or plasma total carbon dioxide measurement (moles/volume)Ordered By: Anali Card on 08-26-2021 CO2 [Moles/Vol] 26.9 mmol/L 22.0-30.0 [facility] Serum or plasma urea nitroge n measurement (mass/volume)Ordered By: Anali Card on 08-26-2021 Urea nitrogen [Mass/Vol] 17 mg/dL 9-[address] [facility] Specific gravity Auto test s trip (U) [Rel density]Ordered By: Anali Card on 08-26-2021 Specific gravity (U) [Rel density] 1.017 1.001-1.[address] [facility] Squamous epithelial cells de tection in urine sediment by light microscopyOrdered By: Anali Card on 08-26-2021 Epithelial cells.squamous LM Ql (Urine sed) None seen [HPF] [facility] TSH DL <= 0.005 mIU/L QnOrde red By: Anali Card on 08-26-2021 TSH Qn 1.43 m[IU]/L 0.45-5.[address] [facility] TT plasOrdered By: Anali hall on 08-26-2021 Thrombin time Coag (PPP) [Time] 20.[address] [facility] Thyroxine (T4) free [Mass/vo lume] in Serum or PlasmaOrdered By: Anali Card on 08-26-2021 Free T4 [Mass/Vol] 0.77 ng/dL 0.61-1.12 [facility] Urine alpha 1 globulin/total protein by electrophoresisOrdered By: Anali Card on 08-26-2021 Alpha 1 globulin Elph (U) [Mass fraction] 7.7 % [facility] Urine alpha 2 globulin/total protein ratio by electrophoresisOrdered By: Anali Card on 08-26-2021 Alpha 2 globulin Elph (U) [Mass fraction] 15.7 % [facility] Urine bacteria detection by automated methodOrdered By: Anali Card on 08-26-2021 Bacteria Auto Ql (U) None seen None Seen [facility] Urine beta globulin measurem ent by electrophoresis (mass/volume)Ordered By: Anali Card on 08-26-2021 Beta globulin Elph (U) [Mass/Vol] 37.4 % [facility] Urine clarity by refractomet ry automatedOrdered By: Anali Card on 08-26-2021 Clarity Refractometry automated (U) Clear Clear [facility] Urine glucose measurement by automated test strip (mass/volume)Ordered By: Anali Card on 08-26-2021 Glucose Auto test strip (U) [Mass/Vol] Normal mg/dL Normal [facility] Urine hemoglobin detection b y automated test stripOrdered By: Anali Card on 08-26-2021 Hemoglobin Auto test strip Ql (U) Negative Negative [facility] Urine leukocyte esterase det ection by automated test stripOrdered By: Anali Card on 08-26-2021 Leukocyte esterase Auto test strip Ql (U) Negative Negative [facility] Urobilinogen Auto test strip (U) [Mass/Vol]Ordered By: Anali Card on 08-26-2021 Urobilinogen (U) [Mass/Vol] Normal mg/dL Normal [facility] aPTT.lupus sensitive (LA scr een)Ordered By: Anali Card on 08-26-2021 aPTT.lupus sensitive Coag (PPP) [Time] 35.[address] [facility] aPTT.lupus sensitive/aPTT.scotty pus sensitive W excess phospholipid (screen to confirm raOrdered By: Anali Card on 08-26-2021 aPTT.lupus sensitive/aPTT.lupus sensitive W excess phospholipid Coag (PPP) [Ratio] 1.[address] [facility] pH Auto test strip (U)Ordere d By: Anali Card on 08-26-2021 pH (U) 6.0 [pH] 5.0-9.[address] [facility] Encounters Encounter Date Encounter Type Care Provider Facility Start: 05-25-2023 End: 05-25-2023 ambulatory BILL SOTELO Not Available Start: 05-25-2023 End: 05-25-2023 Departed Referred Bill Sotelo Work Phone: [facility] Start: 02-12-2023 End: 02-12-2023 ambulatory Anali Card Facility:[facility] Start: 02-12-2023 End: 02-12-2023 ambulatory MD Sacha Monroy Work Phone: [facility] Work Phone: Start: 02-12-2023 End: 02-12-2023 Patient encounter procedure MD Sacha Monroy Work Phone: [facility] [address] Work Phone: Start: 06-06-2022 End: 06-07-[address] ANALI CARD Facility:[facility] Start: 12-25-2021 End: 12-26-[address] ANALI CARD Facility:[facility] Start: 09-05-2021 End: 09-05-2021 Patient encounter procedure MD Sacha Monroy Work Phone: [facility] [address] Start: 08-26-2021 End: 08-26-2021 Patient encounter procedure MD Sacha Monroy Work Phone: [facility] [address] Start: 08-22-2021 End: 08-22-[address] LUCERO KUHN Facility:[facility] Procedures Date Procedure Procedure Detail Performing Clinician Start: 09-05-2021 Plain X-ray of bilat eral wrists MD Sacha Monroy Work Phone: Start: 09-05-2021 Plain X-ray of bilat eral hands MD Sacha Monroy Work Phone: Plan of Treatment Date Care Activity Detail Author 24 hour urine measurement [facility] Work Phone: Albumin [Mass/volume] in Serum or Plasma [facility] Work Phone: Albumin/Globulin ratio [facility] Work Phone: Angiotensin converti ng enzyme [Enzymatic activity/volume] in Serum or Plasma [facility] Work Phone: aPTT.lupus sensitive (LA screen) [facility] Work Phone: aPTT.lupus sensitive W excess phospholipid actual/Normal (normalized [place] confirm) [facility] Work Phone: aPTT.lupus sensitive /aPTT.lupus sensitive W excess phospholipid (screen to confirm ra [facility] Work Phone: dRVVT (LA screen) [facility] Work Phone: Electrophoresis: [id number] [facility] Work Phone: Electrophoresis: [id number] [facility] Work Phone: Electrophoresis: beta-globulin [facility] Work Phone: Electrophoresis: gamma globulin [facility] Work Phone: Globulin [Mass/volume] in Serum [facility] Work Phone: Hepatitis B core antibody measurement [facility] Work Phone: Hepatitis B virus byers rface Ab [Presence] in Serum [facility] Work Phone: Hepatitis B virus byers rface Ag [Presence] in Serum or Plasma by Immunoassay [facility] Work Phone: Hepatitis C virus Ab Signal/Cutoff in Serum or Plasma by Immunoassay [facility] Work Phone: Hepatitis C virus RN A [Presence] in Serum or Plasma by MALIKA with probe detection [facility] Work Phone: IgA [Mass/volume] in Serum or Plasma [facility] Work Phone: IgG [Mass/volume] in Serum or Plasma [facility] Work Phone: IgM [Mass/volume] in Serum or Plasma [facility] Work Phone: Immunofixation for Urine [facility] Work Phone: Lupus anticoagulant [Interpretation] in Platelet poor plasma [facility] Work Phone: Measurement of monoc lonal protein concentration [facility] Work Phone: Protein [Mass/volume] in Serum or Plasma [facility] Work Phone: Protein [Mass/volume] in Urine [facility] Work Phone: Reagin Ab [Presence] in Serum by RPR [facility] Work Phone: Serum immunofixation [facility] Work Phone: Thrombin time [facility] [facility] Work Phone: Thyroglobulin Ab [Un its/volume] in Serum or Plasma [facility] Work Phone: Thyroperoxidase Ab [ Units/volume] in Serum or Plasma [facility] Work Phone: Immunizations Immunization Date Immunization Notes Care Provider Fa [facility] 05-30-2020 COVID-19 mRNA-1273 (Arnoldo) MD Sacha Monroy Work Phone: [facility] 05-02-2020 COVID-19 mRNA-1273 (Arnoldo) MD Sacha Monroy Work Phone: [facility] Payers Date Payer Category Payer Self-pay [id number] 1965 Unknown [id number] 2.16.84 [id number] 1965 Unknown [id number] 2.16.84 [id number] 1965 Unknown [id number] 2.16.84 [id number] 1965 Unknown [id number] 2.16.84 [id number] 1959 Unknown [id number] Unknown [employer] [id number] Unknown [id number] 2.16.8 [id number] Unknown [id number] 2.16.8 [id number] Social History Date Type Detail Facility Start: 09-26-2020 End: 09-26-2020 Tobacco smoking status ALIS Never smoked tobacco (finding) [facility] Start: 1965 Sex Assigned At Female F [facility] Evaluation note Note Date & Type Note Facility Evaluation note No assessment information availa [facility] Work Phone: Family History No Family [...] DATE CREATED AUTHOR AUTHOR'S ORGANIZ ATION 05/26/2023 [facility] EPIC DATE CREATED AUTHOR AUTHOR'S ORGANIZ ATION 05/28/2023 [facility] FOR RECORDS PERTAINING TO PATIENTS WHO [...] BE BASED ON THE PRIMARY CLINICAL RECORDS. [facility] [employer] provides no warranty or guarantee of the accuracy or completeness of information in this document.
--- NOTE | 2023-06-12 09:44 | MM_ITS ---
Patient Name: JUAN CARLOS LOU MR#: [id number] : 1965 Exam Date: 06/12/2023 Ordering Doctor: DR Noah Sotelo . RADIOLOGY REPORT PROCEDURE: MM TOMOSYNTHESIS SCREENING BI COMPARISON: MG MAMM SCREEN 3D SUMI CAD, 05/09/2021. MG MAMM SCREEN SUMI W CAD, 03/31/2017. INDICATIONS: Screening Calculator Name NCI Breast Cancer Risk Assessment Tool 5 Year Breast Cancer Risk 1.70% Lifetime Breast Cancer Risk 9.10% Personal Breast Cancer No Personal Ovarian Cancer No Treatments None Family Cancers None LOCATION: [facility] BREAST COMPOSITION: Heterogeneously dense,which may obscure small masses. FINDINGS: DIAGNOSTIC CATEGORY 1--NEGATIVE. NO CHANGE FROM COMPARISON ASSESSMENT. Scattered benign-appearing calcifications are present. Scattered benign-appearing lymph nodes are present. RIGHT BREAST: No significant suspicious finding. LEFT BREAST: No significant suspicious finding. RECOMMENDATIONS: ROUTINE MAMMOGRAM AND CLINICAL EVALUATION IN 12 MONTHS. PLEASE NOTE: A NORMAL MAMMOGRAM DOES NOT EXCLUDE THE POSSIBILITY OF BREAST CANCER. A CLINICALLY SUSPICIOUS PALPABLE LUMP SHOULD BE BIOPSIED. Dictated by: Chaitanya Webster MD on 06/12/2023 at 11:16 Approved by: Chaitanya Webster MD on 06/12/2023 at 11:17
--- NOTE | 2023-06-12 09:44 | XR_ITS ---
[address] [address] Patient Name: JUAN CARLOS LOU MRN: [id number] date: 1965 Sex: F Assigned Patient Location: [facility] Current Patient Location: [facility] Accession/Order Number: [id number] Exam Date: 06/12/2023 10:20 Report Date: 06/12/2023 11:18 At the request of: BILL NIELSEN Procedure: XR DEXA axial skeleton EXAMINATION: XR DEXA axial skeleton, 06/12/2023 10:20 AM EST HISTORY: Post Menopausal State Z78.0 COMPARISON: 2021 TECHNIQUE: Dual-energy X-ray absorptiometry (DEXA) bone density study performed for the axial skeleton. HISTORY: Post Menopausal State Z78.0 FINDINGS: Bone mineral density AP spine L1-L4 measures 1.572 g/sq cm. T score 3.3. WHO classification: Normal. Lowest bone mineral density left femoral trochanter measures 0.971 g/sq cm. T score 1.0. WHO classification: Normal XR/XR DEXA axial skeleton IMPRESSION: Normal bone mineral density. Low fracture risk Electronically authenticated by: CALVIN SMITH Date: 06/12/2023 11:18
== END 2023-06-12 09:34 | disposition home or self-care (01) ==
PROVIDERS: PCP Family Medicine; Visit Provider Obstetrics & Gynecology
DX: Z12.31 Encounter for screening mammogram for malignant neoplasm of breast (principal); Z78.0 Asymptomatic menopausal state
CPT/HCPCS: 77063; 77067; 77080

== ENCOUNTER 2023-12-25 09:13 | Outpatient (OUT) | payer BC, SELFPAY ==
--- OUTSIDE RECORDS SUMMARY | 2023-12-25 09:42 | XMS_ITS | CCD ---
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 Name Role Phone MD Sacha Monroy Primary Care Provider MD Vishal Card Attending Provider [phone] KYAW, DR BRIONES Admitting Unavailable KYAW, DR BRIONES Attending Unavailable IRVING, DR LAFLEUR Primary Care Unavailable KYAW, DR BRIONES Consulting Unavailable KARELVIRAK, DR BARKER Admitting Unavailable KARELVIRAK, DR BARKER Attending Unavailable IRVING, DR LAFLEUR Primary Care Unavailable KARNELIDA, DR BARKER Consulting Unavailable KYAW, DR BRIONES Admitting Unavailable KYAW, DR BRIONES Attending Unavailable IRVING, DR LAFLEUR Primary Care Unavailable KYAW, DR BRIONES Consulting Unavailable MD Sacha Monroy Primary Care Provider [phone] MD Anali Card Attending Provider [phone] BILL SOTELO Attending Unavailable Bill Sotelo Attending [...] 06-06-2022 Chronic Other aftercare (1 source) Other half-way (current) drug therapy; 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 CPT Codes 21049 Specimen: [id number] Received: 05/26/23 Status: MARIELA Mcgrath Num: [id number] Spec Type: Surgical Subm Dr: Bill Sotelo Tissues: A Cervical Polyp (CERVICAL POLYP) Procedures: JEREMY/Stephany, Gross/Micro L4 Patient: AlinJuan Carlos [id number] (Continued) Signed (signature on file) Danilo-Naif Neely MD 05/27/23 1009 Normal [facility] Alanine aminotransferase [En zymatic activity/volume] in Serum or PlasmaOrdered By: Anali Card on 02-12-2023 ALT [Catalytic activity/Vol] 70 U/L High 7-52 [facility] Comment on above: Performed By: #### C MP, CBC #### [facility] [address] [place] [address] [place] Albumin [Mass/volume] in Ser um or Plasma by Bromocresol green (BCG) dye binding methoOrdered By: Anali Card on 02-12-2023 Albumin BCG dye [Mass/Vol] 4.3 g/dL 3.5-5.7 [facility] Alkaline phosphatase [Enzyma tic activity/volume] in Serum or PlasmaOrdered By: Anali Card on 02-12-2023 ALP [Catalytic activity/Vol] 80 U/L Normal 34-104 [facility] Comment on above: Result Comment: PERF ORMED BY: [place] [address] PATHOLOGIST HOG COOLER OLGA LIDIA CORONA M.D. Performed By: #### C MP, CBC #### [facility] [address] [place] [address] Aspartate aminotransferase [ Enzymatic activity/volume] in Serum or PlasmaOrdered By: Anali Card on 02-12-2023 AST [Catalytic activity/Vol] 36 U/L Normal 13-39 [facility] Comment on above: Performed By: #### C MP, CBC #### [facility] [address] [place] [address] [place] Automated basophil %Ordered By: Anali Card on 10-12-2023 Basophils/100 WBC (Bld) 0.4 % Normal . [facility] Comment on above: Performed By: #### C MP, CBC #### [address] Automated basophil countOrde red By: Anali Lalrow on 02-12-2023 Basophils (Bld) [#/Vol] 0.0 10*3/uL Normal 0.0-0.2 [facility] Comment on above: Result Comment: PERF ORMED BY: [place] [address] PATHOLOGIST H[employer] COOLER OLGA LIDIA CORONA M.D. Performed By: #### C MP, CBC #### [address] Automated blood monocyte cou ntOrdered By: Anali Card on 02-12-2023 Monocytes (Bld) [#/Vol] 0.4 10*3/uL Normal 0.0-0.8 [facility] Comment on above: Performed By: #### C MP, CBC #### [address] Automated eosinophil %Ordere d By: Anali Kyaw on 02-12-2023 Eosinophils/100 WBC (Bld) 2.1 % Normal . [facility] Comment on above: Performed By: #### C MP, CBC #### [address] Automated eosinophil countOr dered By: Anali Kyaw on 02-12-2023 Eosinophils (Bld) [#/Vol] 0.1 10*3/uL Normal 0.0-0.45 [facility] Comment on above: Performed By: #### C MP, CBC #### [address] Automated monocyte %Ordered By: Analigardenia Card on 02-12-2023 Monocytes/100 WBC (Bld) 8.2 % Normal . [facility] Comment on above: Performed By: #### C MP, CBC #### [address] Automated neutrophil %Ordere d By: Anali Card on 02-12-2023 Neutrophils/100 WBC (Bld) 58.3 % Normal . [facility] Comment on above: Performed By: #### C MP, CBC #### [facility] [address] Bilirubin.total [Mass/volume ] in Serum or PlasmaOrdered By: Anali Lalrow on 02-12-2023 Bilirubin [Mass/Vol] 0.5 mg/dL Normal 0.3-1.0 [facility] Comment on above: Performed By: #### C MP, CBC #### [address] Calcium [Mass/volume] in Ser um or PlasmaOrdered By: Anali Lalrow on 02-12-2023 Calcium [Mass/Vol] 9.2 mg/dL Normal 8.6-10.3 [facility] Comment on above: Performed By: #### C MP, CBC #### [address] Carbon dioxide, total [Moles /volume] in Serum or PlasmaOrdered By: Anali Lalrow on 02-12-2023 CO2 [Moles/Vol] 28.6 mmol/L Normal 21.0-31.0 [facility] Comment on above: Performed By: #### C MP, CBC #### [address] Chloride [Moles/volume] in S tex or PlasmaOrdered By: Anali Kyaw on 02-12-2023 Chloride [Moles/Vol] 106 mmol/L Normal 98-107 [facility] Comment on above: Performed By: #### C MP, CBC #### [address] Complete Blood Count Auto Di ffon 02-12-2023 Mean Corpuscular HGB Conc 33.5 g/dL Normal 32.0-35.0 [facility] Comment on above: Performed By: #### C MP, CBC #### [address] NRBC% 0.1 /100{WBC} Normal 0-0.5 [facility] Comment on above: Performed By: #### C MP, CBC #### [address] Comprehensive Metabolic Pane kim 02-12-2023 Albumin [Mass/Vol] 4.3 g/dL Normal 3.5-5.7 [facility] Comment on above: Performed By: #### C MP, CBC #### [address] GFR/1.73 sq M.predicted MDRD (S/P/Bld) [Vol rate/Area] mL/min/{1.73_m2} Normal [facility] Comment on above: Performed By: #### C MP, CBC #### [address] Creatinine [Mass/volume] in Serum or PlasmaOrdered By: Anali Card on 02-12-2023 Creatinine [Mass/Vol] 0.93 mg/dL Normal 0.60-1.20 [facility] Comment on above: Performed By: #### C MP, CBC #### [address] Erythrocyte distribution wid th [Ratio] by Automated countOrdered By: Anali Card on 02-12-2023 Erythrocyte distribution width (RBC) [Ratio] 14.5 % Normal 11.9-15.3 [facility] Comment on above: Performed By: #### C MP, CBC #### [address] Erythrocytes [#/volume] in B lood by Automated countOrdered By: Anali Card on 02-12-2023 RBC (Bld) [#/Vol] 4.32 10*6/uL Normal 3.60-5.00 [facility] Comment on above: Performed By: #### C MP, CBC #### [address] Glucose [Mass/volume] in Ser um or PlasmaOrdered By: Anali Card on 02-12-2023 Glucose [Mass/Vol] 107 mg/dL High 70-100 [facility] Comment on above: ADA recommended refe rence rangeRandom Glucose Reference Range is dependent on time and content of last meal. Glucose of more than 200 mg/dL in a nonstressed, ambulatory subject supports the diagnosis of Diabetes Mellitus. Result Comment: [place] om Glucose Reference Range is dependent on time and content of last meal. Glucose of more than 200 mg/dL in a nonstressed, ambulatory subject supports the diagnosis of Diabetes Mellitus. ADA recommended reference range Performed By: #### C MP, CBC #### [address] Hematocrit [Volume Fraction] of Blood by Automated countOrdered By: Analigardenia Card on 02-12-2023 Hematocrit (Bld) [Volume fraction] 39.2 % Normal 34.0-46.4 [facility] Comment on above: Performed By: #### C MP, CBC #### [address] Hemoglobin [Mass/volume] in BloodOrdered By: Anali Card on 02-12-2023 Hemoglobin (Bld) [Mass/Vol] 13.1 g/dL Normal 11.8-15.4 [facility] Comment on above: Performed By: #### C MP, CBC #### [address] Leukocytes [#/volume] correc henry for nucleated erythrocytes in Blood by Automated counOrdered By: Anali Card on 02-12-2023 WBC corrected for nucl RBC Auto (Bld) [#/Vol] 4.9 10*3/uL 3.8-11.6 [facility] Leukocytes [#/volume] in Blo od by Automated countOrdered By: Anali Card on 02-12-2023 WBC (Bld) [#/Vol] 4.9 10*3/uL Normal 3.8-11.6 [facility] Comment on above: Performed By: #### C MP, CBC #### [place] [address] [place] Lymphocytes [#/volume] in Bl ood by Automated countOrdered By: Anali Lalrow on 02-12-2023 Lymphocytes (Bld) [#/Vol] 1.5 10*3/uL Normal 1.00-4.8 [facility] Comment on above: Performed By: #### C MP, CBC #### [address] Lymphocytes/100 leukocytes i n Blood by Automated countOrdered By: Anali Lalrow on 02-12-2023 Lymphocytes/100 WBC (Bld) 31.0 % Normal . [facility] Comment on above: Performed By: #### C MP, CBC #### [address] MCH [Entitic mass] by Automa henry countOrdered By: Anali Lalrow on 02-12-2023 MCH (RBC) [Entitic mass] 30.4 pg Normal 24.7-34.3 [facility] Comment on above: Performed By: #### C MP, CBC #### [address] MCHC Auto (RBC) [Mass/Vol]Or dered By: Anali Lalrow on 02-12-2023 MCHC (RBC) [Mass/Vol] 33.5 g/dL 32.0-35.0 [facility] MCV [Entitic volume] by Auto mated countOrdered By: Anali Lalrow on 02-12-2023 MCV (RBC) [Entitic vol] 90.8 fL Normal 80-100 [facility] Comment on above: Performed By: #### C MP, CBC #### [address] Neutrophils [#/volume] in Bl ood by Automated countOrdered By: Anali Lalrow on 02-12-2023 Neutrophils (Bld) [#/Vol] 2.9 10*3/uL Normal 1.8-7.7 [facility] Comment on above: Performed By: #### C MP, CBC #### [address] No Panel InformationOrdered By: Anali Lalrow on 02-12-2023 Estimated GFR (CKD-EPI) > 60.0 mL/Min [facility] Creatinine Clearance (Chem N/A [facility] Nucleated erythrocytes [Pres ence] in Blood by Automated countOrdered By: Anali Lalrow on 02-12-2023 Nucleated RBC Auto Ql (Bld) 0.1 /100{WBC} 0-0.5 [facility] Platelet mean volume [Entiti c volume] in Blood by Automated countOrdered By: Anali Kyaw on 02-12-2023 Platelet mean volume (Bld) [Entitic vol] 9.6 fL Normal 6.3-10.7 [facility] Comment on above: Performed By: #### C MP, CBC #### [place] [address] [place] Platelets [#/volume] in Bloo d by Automated countOrdered By: Anali Card on 02-12-2023 Platelets (Bld) [#/Vol] 202 10*3/uL Normal 150-450 [facility] Comment on above: Performed By: #### C MP, CBC #### [facility] [address] [place] [address] [place] Potassium [Moles/volume] in Serum or PlasmaOrdered By: Anali Card on 02-12-2023 Potassium [Moles/Vol] 4.6 mmol/L Normal 3.5-5.1 [facility] Comment on above: Performed By: #### C MP, CBC #### [place] [address] [place] Protein [Mass/volume] in Ser um or PlasmaOrdered By: Anali Card on 02-12-2023 Protein [Mass/Vol] 6.6 g/dL Normal 6.4-8.9 [facility] Comment on above: Performed By: #### C MP, CBC #### [address] Serum globulin measurement b y calculation (mass/volume)Ordered By: Anali Card on 02-12-2023 Globulin (S) [Mass/Vol] 2.3 g/dL Normal [facility] Comment on above: Performed By: #### C MP, CBC #### [address] Serum or plasma albumin/glob ulin mass ratioOrdered By: Anali Lalrow on 02-12-2023 Albumin/Globulin [Mass ratio] 1.9 {ratio} Normal [facility] Comment on above: Performed By: #### C MP, CBC #### [address] Serum or plasma anion gap de terminationOrdered By: Anali Lalrow on 02-12-2023 Anion gap [Moles/Vol] 11.0 mmol/L Normal 6.0-15.0 [facility] Comment on above: Performed By: #### C MP, CBC #### [address] Sodium [Moles/volume] in Ser um or PlasmaOrdered By: Anali Kyaw on 02-12-2023 Sodium [Moles/Vol] 141 mmol/L Normal 136-145 [facility] Comment on above: Performed By: #### C MP, CBC #### [address] Urea nitrogen [Mass/volume] in Serum or PlasmaOrdered By: Anali Lalrow on 02-12-2023 Urea nitrogen [Mass/Vol] 16 mg/dL Normal 7-25 [facility] Comment on above: Performed By: #### C MP, CBC #### [address] ANTICARDIOLIPIN AB (SELINA) IGG on 06-09-2022 Anticardiolipin Ab,IgG,Qn <9 Normal 0-14 [facility] Comment on above: Result Comment: Nega tive: <15 Indeterminate: 15 - 20 Low-Med Positive: >20 - 80 High Positive: >80 Performed By: #### C ARDLIP #### [facility] [address] [address] [address] Allison Neely CBC AUTO DIFFon 06-06-2022 BASO # 0.0 103/ul Normal 0.0-0.1 [facility] Comment on above: Performed By: #### C BC #### [facility] [address] [place] [address] Dr. Allison Neely Basophils/100 WBC (Bld) 0.5 % Normal 0.2-2.0 [facility] Comment on above: Performed By: #### C BC #### [facility] [address] [place] [address] Dr. Allison Neely EO # 0.1 103/ul Normal 0.0-0.7 [facility] Comment on above: Performed By: #### C BC #### [facility] [address] [place] [address] Dr. Allison Neely Eosinophils/100 WBC (Bld) 0.9 % Normal 0.9-7.0 [facility] Comment on above: Performed By: #### C BC #### [facility] [address] [place] [address] Dr. Allison Neely Erythrocyte distribution width (RBC) [Ratio] 13.7 % Normal 11.0-15.0 [facility] Comment on above: Performed By: #### C BC #### [facility] [address] [place] [address] Dr. Allison Neely Hematocrit (Bld) [Volume fraction] 41.8 % Normal 36.0-48.0 [facility] Comment on above: Performed By: #### C BC #### [facility] [address] [place] [address] Dr. Allison Neely Hemoglobin (Bld) [Mass/Vol] 13.0 g/dL Normal 12.0-16.0 [facility] Comment on above: Performed By: #### C BC #### [facility] [address] [place] [address] Dr. Allison Neely IG # 0.01 10e3/ul Normal 0.00-0.03 [facility] Comment on above: Performed By: #### C BC #### [facility] [address] [place] [address] Dr. Allison Neely IG % 0.2 % Normal 0.0-0.5 [facility] Comment on above: Performed By: #### C BC #### [facility] [address] [place] [address] Dr. Allison Neely LYMPH # 1.7 103/ul Normal 1.2-3.8 [facility] Comment on above: Performed By: #### C BC #### [facility] [address] [place] [address] Dr. Allison Neely Lymphocytes/100 WBC (Bld) 30.5 % Normal 20.5-60.0 [facility] Comment on above: Performed By: #### C BC #### [facility] [address] [place] [address] Dr. Allison Neely MANUAL DIFF REQ NO Normal [facility] Comment on above: Performed By: #### C BC #### [facility] [address] [place] [address] Dr. Allison Neely MCH (RBC) [Entitic mass] 29.7 pg Normal 26.7-34.0 [facility] Comment on above: Performed By: #### C BC #### [facility] [address] [place] [address] Dr. Allison Neely MCHC (RBC) [Mass/Vol] 31.1 g/dL Normal 29.9-35.2 [facility] Comment on above: Performed By: #### C BC #### [facility] [address] [place] [address] Dr. Allison Neely MCV (RBC) [Entitic vol] 95.7 fL Normal 81.0-99.0 [facility] Comment on above: Performed By: #### C BC #### [facility] [address] [place] [address] Dr. Allison Neely MONO # 0.3 103/ul Normal 0.3-0.8 [facility] Comment on above: Performed By: #### C BC #### [facility] [address] [place] [address] Dr. Allison Neely Monocytes/100 WBC (Bld) 5.1 % Normal 1.7-12.0 [facility] Comment on above: Performed By: #### C BC #### [facility] [address] [place] [address] Dr. Allison Neely NEUT # 3.5 103/ul Normal 1.4-6.5 [facility] Comment on above: Performed By: #### C BC #### [facility] [address] [place] [address] Dr. Allison Neely Neutrophils/100 WBC (Bld) 62.8 % Normal 43.0-75.0 [facility] Comment on above: Performed By: #### C BC #### [facility] [address] [place] [address] Dr. Allison Neely Platelet mean volume (Bld) [Entitic vol] 12.0 fL Normal 9.5-13.5 [facility] Comment on above: Performed By: #### C BC #### [facility] [address] [place] [address] Dr. Allison Neely PLT 274 103/ul Normal 150-450 [facility] Comment on above: Performed By: #### C BC #### [facility] [address] [place] [address] Dr. Allison Neely RBC 4.37 106/ul Normal 4.20-5.40 [facility] Comment on above: Performed By: #### C BC #### [facility] [address] [place] [address] Dr. Allison Neely WBC 5.6 103/ul Normal 4.0-11.0 [facility] Comment on above: Performed By: #### C BC #### [facility] [address] [place] [address] Dr. Allison Neely PROF 14(COMP METB)on 023 Albumin [Mass/Vol] 4.0 g/dL Normal 3.4-5.0 [facility] Comment on above: Performed By: #### C MP #### [facility] [address] [place] [address] Dr. Allison Neely Albumin/Globulin [Mass ratio] 1.3 {ratio} Normal [facility] Comment on above: Performed By: #### C MP #### [facility] [address] [address] [address] Allison Neely ALP [Catalytic activity/Vol] 103 U/L Normal 46-116 [facility] Comment on above: Performed By: #### C MP #### [facility] [address] [address] [address] Allison Neely ALT [Catalytic activity/Vol] 69 U/L Critically high 14-59 [facility] Comment on above: Performed By: #### C MP #### [facility] [address] [address] [address] Allison Neely Anion gap [Moles/Vol] 12.8 mmol/L Normal Th e [facility] Comment on above: Performed By: #### C MP #### [facility] [address] [place] [address] Dr. Allison Neely AST [Catalytic activity/Vol] 30 U/L Normal 15-37 [facility] Comment on above: Performed By: #### C MP #### [facility] [address] [place] [address] Dr. Allison Neely Bilirubin [Mass/Vol] 0.4 mg/dL Normal 0.2-1.0 [facility] Comment on above: Performed By: #### C MP #### [facility] [address] [place] [address] Dr. Allison Neely Calcium [Mass/Vol] 9.3 mg/dL Normal 8.5-10.1 [facility] Comment on above: Performed By: #### C MP #### [facility] [address] [place] [address] Dr. Allison Neely Chloride [Moles/Vol] 101 mmol/L Normal 98-107 [facility] Comment on above: Performed By: #### C MP #### [facility] [address] [address] [address] Allison Neely CO2 [Moles/Vol] 29.2 mmol/L Normal 21.0-32.0 [facility] Comment on above: Performed By: #### C MP #### [facility] [address] [address] [address] Allison Neely Creatinine [Mass/Vol] 0.99 mg/dL Normal 0.55-1.02 [facility] Comment on above: Performed By: #### C MP #### [facility] [address] [place] [address] Dr. Allison Neely EGFR-AF SCOTTISH >60 Normal >=60 [facility] Comment on above: Performed By: #### C MP #### [facility] [address] [address] [address] Allison Neely EGFR-NON AF SCOTTISH 58 mL/min/1.73m2 Critically low >=60 [facility] Comment on above: Performed By: #### C MP #### [facility] [address] [place] [address] Dr. Allison Neely Globulin (S) [Mass/Vol] 3.0 g/dL Normal [facility] Comment on above: Performed By: #### C MP #### [facility] [address] [place] [address] Dr. Allison Neely Glucose [Mass/Vol] 157 mg/dL Critically high 74-106 [facility] Comment on above: Performed By: #### C MP #### [facility] [address] [place] [address] Dr. Allison Neely Potassium [Moles/Vol] 4.0 mmol/L Normal 3.5-5.1 [facility] Comment on above: Performed By: #### C MP #### [facility] [address] [address] [address] Allison Neely Protein [Mass/Vol] 7.0 g/dL Normal 6.4-8.2 [facility] Comment on above: Performed By: #### C MP #### [facility] [address] [place] [address] Dr. Allison Neely Sodium [Moles/Vol] 139 mmol/L Normal 136-145 [facility] Comment on above: Performed By: #### C MP #### [facility] [address] [place] [address] Dr. Allison Neely Urea nitrogen [Mass/Vol] 26.0 mg/dL Critically high 7.0-18 .0 [facility] Comment on above: Performed By: #### C MP #### [facility] [address] [place] [address] Dr. Allison Neely Urea nitrogen/Creatinine [Mass ratio] 26.3 mg/mg Normal [facility] Comment on above: Performed By: #### C MP #### [facility] [address] [place] [address] Dr. Allison Neely ANTICARDIOLIPIN AB (SELINA) IGG on 12-26-2021 Anticardiolipin Ab,IgG,Qn <9 Normal 0-14 [facility] Comment on above: Result Comment: Nega tive: <15 Indeterminate: 15 - 20 Low-Med Positive: >20 - 80 High Positive: >80 Performed By: #### C ARDLIP #### [facility] [address] [place] [address] Dr. Allison Neely PAP ACOG PANEL 2: 30 to 63on 08-29-2021 . . Normal [facility] Comment on above: Result Comment: Perf ormed at: WB Performed By: #### [id number] #### [facility] [address] [place] [address] Dr. Allison Neely Age Gdln ACOG Testing 30-65 Normal [facility] Comment on above: Performed By: #### [id number] #### [facility] [address] [place] [address] Dr. Allison Neely DIAGNOSIS: Comment Normal [facility] Comment on above: Result Comment: NEGA TIVE FOR INTRAEPITHELIAL LESION OR MALIGNANCY. CELLULAR CHANGES ASSOCIATED WITH ATROPHY ARE PRESENT. Performed at: WB Performed By: #### [id number] #### [facility] [address] [place] [address] Dr. Allison Neely HPV Aptima Negative Normal Negative [facility] Comment on above: Result Comment: This nucleic acid amplification test detects fourteen high-risk HPV types (16,18,31,33,35,39,45,51,52,56,58,59,66,68) without differentiation. Performed at: =G Performed By: #### [id number] #### [facility] [address] [place] [address] Dr. Allison Neely Methodology: Comment Normal [facility] Comment on above: Result Comment: This liquid based ThinPrep(R) pap test was screened with the use of an image guided system. Performed at: WB Performed By: #### [id number] #### [facility] [address] [place] [address] Dr. Allison Neely Note: Comment Normal [facility] Comment on above: Result Comment: The Pap smear is a screening test designed to aid in the detection of premalignant and malignant conditions of the uterine cervix. It is not a diagnostic procedure and should not be used as the sole means of detecting cervical cancer. Both false-positive and false-negative reports do occur. . Performed at: WB Performed By: #### [id number] #### [facility] [address] [place] [address] Dr. Allison Neely Performed by: Comment Normal [facility] Comment on above: Result Comment: Nuno Solis, Receiving And Processing Supervisor (ASCP) Performed at: WB Performed By: #### [id number] #### [facility] [address] [place] [address] Dr. Allison Neely Specimen adequacy: Comment Normal [facility] Comment on above: Result Comment: Sati sfactory for evaluation. Endocervical component may not be distinguished in cases of atrophy. Performed at: WB Performed By: #### [id number] #### [facility] [address] [place] [address] Dr. Allison Neely Activated partial thrombopla stin time (aPTT) in platelet poor plasma by coagulation aOrdered By: Anali Card on 08-26-2021 aPTT Coag (PPP) [Time] 33.9 s 25.1-36.5 [facility] Albumin [Mass/volume] in Ser um or PlasmaOrdered By: Anali Card on 08-26-2021 Albumin [Mass/Vol] 4.0 g/dL [facility] Albumin/Protein.total in 24 hour Urine by ElectrophoresisOrdered By: Anali Card on 08-26-2021 Albumin Elph (24H U) [Mass fraction] 22.6 % [facility] Automated erythrocytes count in urine sediment (number/area)Ordered By: Anali Card on 08-26-2021 RBC Auto (Urine sed) [#/Area] 0-1 [HPF] [facility] Automated leukocytes count i n urine sediment (number/area)Ordered By: Anali Card on 08-26-2021 WBC Auto (Urine sed) [#/Area] 0-1 [HPF] [facility] Basophils Auto (Bld) [#/Vol] Ordered By: Anali Card on 08-26-2021 Basophils (Bld) [#/Vol] 0.0 10*3/uL 0.0-0.2 [facility] Basophils/100 WBC Auto (Bld) Ordered By: Anali Card on 08-26-2021 Basophils/100 WBC (Bld) 0.8 % [facility] Bilirubin Test strip Ql (U)O rdered By: Anali Card on 08-26-2021 Bilirubin Ql (U) Negative Negative [facility] Blood hemoglobin measurement (mass/volume)Ordered By: Anali Card on 08-26-2021 Hemoglobin (Bld) [Mass/Vol] 13.5 g/dL 11.8-15.4 [facility] Blood leukocytes automated c ount (number/volume)Ordered By: Anali Card on 08-26-2021 WBC (Bld) [#/Vol] 3.3 10*3/uL 4.5-11.0 [facility] Body fluid albumin measureme nt (mass/volume)Ordered By: Anali Card on 08-26-2021 Albumin (Body fld) [Mass/Vol] 4.3 g/dL 3.2-5.5 [facility] Color Auto (U)Ordered By: Venkat Card on 08-26-2021 Color (U) Yellow Yellow [facility] Creatine kinase [Enzymatic a ctivity/volume] in Serum or PlasmaOrdered By: Anali Card on 08-26-2021 CK [Catalytic activity/Vol] 137 U/L 22-269 [facility] Creatinine and Glomerular fi ltration rate.predicted panel (S/P/Bld)Ordered By: Anali Card on 08-26-2021 Creatinine [Mass/Vol] 0.91 mg/dL 0.44-1.03 [facility] Dilute Morgan's viper venom timeOrdered By: Anali Card on 08-26-2021 dRVVT Coag (PPP) [Time] 39.0 s [facility] Eosinophils Auto (Bld) [#/Vo l]Ordered By: Anali Card on 08-26-2021 Eosinophils (Bld) [#/Vol] 0.1 10*3/uL 0.0-0.45 [facility] Eosinophils/100 WBC Auto (Bl d)Ordered By: Anali Card on 08-26-2021 Eosinophils/100 WBC (Bld) 4.2 % [facility] Erythrocyte distribution wid th Auto (RBC) [Ratio]Ordered By: Anali Card on 08-26-2021 Erythrocyte distribution width (RBC) [Ratio] 13.6 % 11.9-15.3 [facility] Erythrocyte sedimentation ra te by Photometric methodOrdered By: Anali Card on 08-26-2021 ESR Photometric method (Bld) [Velocity] 9 mm/hr 0-29 [facility] Estimated glomerular filtrat ion rate (GFR) non- AmericanOrdered By: Anali Card on 08-26-2021 GFR/1.73 sq M.predicted among non-blacks MDRD (S/P/Bld) [Vol rate/Area] > 60 mL/Min [facility] Gamma globulin/Protein.total in 24 hour Urine by ElectrophoresisOrdered By: Anali Card on 08-26-2021 Gamma globulin Elph (24H U) [Mass fraction] 16.7 % [facility] Globulin Calc (S) [Mass/Vol] Ordered By: Anali Card 08-26-2021 Globulin (S) [Mass/Vol] 2.4 g/dL [facility] Hematocrit Auto (Bld) [Volum e fraction]Ordered By: Anali Card 08-26-2021 Hematocrit (Bld) [Volume fraction] 39.9 % 34.0-46.4 [facility] Hepatitis B virus surface Ag [Presence] in Serum or Plasma by ImmunoassayOrdered By: Anali Card on 08-26-2021 HBV surface Ag IA Ql Negative Negative [facility] Hepatitis C virus RNA [Prese nce] in Serum or Plasma by MALIKA with probe detectionOrdered By: Anali Card on 08-26-2021 HCV RNA MALIKA+probe Ql N/A [facility] IgA [Mass/volume] in Serum o r PlasmaOrdered By: Anali Card on 08-26-2021 IgA [Mass/Vol] 103 mg/dL [facility] IgG [Mass/volume] in Serum o r PlasmaOrdered By: Anali Card on 08-26-2021 IgG [Mass/Vol] 617 mg/dL [facility] IgM [Mass/volume] in Serum o r PlasmaOrdered By: Anali Card on 08-26-2021 IgM [Mass/Vol] 226 mg/dL [facility] Comment on above: Performed at: - [facility] [place] [id number] Nursing Home Assistant: Prakash Ballesteros PhD, Phone: [phone] Immunofixation for UrineOrde red By: Anali Card on 08-26-2021 Interpretation Immunofixation (U) [Interp] See comment [facility] Comment on above: No monoclonality det ected. Performed at: [employer] [facility] [address] [id number] Nursing Home Assistant: Prakash Ballesteros PhD, Phone: [phone] Ketones Auto test strip (U) [Mass/Vol]Ordered By: Anali Card on 08-26-2021 Ketones (U) [Mass/Vol] Negative Negative [facility] - CoagulationOrde red By: Anali Card on 08-26-2021 PT Coag (PPP) [Time] 11.1 s 9.0-12.9 [facility] - Hematology and Cell countsOrdered By: Anali Card on 08-26-2021 Nucleated RBC/100 WBC (Bld) [Ratio] 0.1 % 0-0.5 [facility] Laboratory - UrinalysisOrder ed By: Anali Card on 08-26-2021 Hyaline casts LM Ql (Urine sed) 0-8 [LPF] [facility] Lupus anticoagulant [Interpr etation] in Platelet poor plasmaOrdered By: Anali Card on 08-26-2021 Lupus anticoagulant (PPP) [Interp] Comment: [facility] Comment on above: No lupus anticoagula nt was detected. Performed at: - [facility] [id number] Nursing Home Assistant: Amanda Olmedo MD, Phone: [phone] Lymphocytes Auto (Bld) [#/Vo l]Ordered By: Anali Card on 08-26-2021 Lymphocytes (Bld) [#/Vol] 1.2 10*3/uL 1.00-4.8 [facility] Lymphocytes/100 WBC Auto (Bl d)Ordered By: Anali Card on 08-26-2021 Lymphocytes/100 WBC (Bld) 37.9 % [facility] MCH Auto (RBC) [Entitic mass ]Ordered By: Anali Card on 08-26-2021 MCH (RBC) [Entitic mass] 30.7 pg 24.7-34.3 [facility] MCHC Auto (RBC) [Mass/Vol]Or dered By: Anali Card on 08-26-2021 MCHC (RBC) [Mass/Vol] 33.8 g/dL 32.0-35.0 [facility] MCV Auto (RBC) [Entitic vol] Ordered By: Anali Card on 08-26-2021 MCV (RBC) [Entitic vol] 90.6 fL 80-100 [facility] Monocytes Auto (Bld) [#/Vol] Ordered By: Anali Card on 08-26-2021 Monocytes (Bld) [#/Vol] 0.3 10*3/uL 0.0-0.8 [facility] Monocytes/100 WBC Auto (Bld) Ordered By: Anali Card on 08-26-2021 Monocytes/100 WBC (Bld) 8.5 % [facility] Neutrophils Auto (Bld) [#/Vo l]Ordered By: Anali Card on 08-26-2021 Neutrophils (Bld) [#/Vol] 1.6 10*3/uL 1.8-7.7 [facility] Neutrophils/100 WBC Auto (Bl d)Ordered By: Anali Card on 08-26-2021 Neutrophils/100 WBC (Bld) 48.6 % [facility] Nitrite Test strip Ql (U)Ord ered By: Anali Card on 08-26-2021 Nitrite Ql (U) Negative Negative [facility] No Panel InformationOrdered By: Anali Card on 08-26-2021 Estimated GFR () > 60 mL/Min [facility] Comment on above: GFR estimated refere nce range: According to KDOQI guidelines, <60 ml/min/1.73m2 is sufficient to diagnose a patient with chronic kidney disease. Hepatitis B Core Total Antibody Negative Negative [facility] Comment on above: Performed at: [employer] [facility] [address] [id number] Nursing Home Assistant: Prakash Ballesteros PhD, Phone: [phone] Hepatitis C RNA Comment N/A [facility] Creatinine Clearance (Chem N/A [facility] Protein Electrophoresis M-Shawn Not observed g/dL Not Observed [facility] Protein Electrophoresis Note See comment [facility] Comment on above: Protein electrophore sis scan will follow via computer, mail, or sword swallower delivery. Serum Immunofixation See comment [facility] Comment on above: No monoclonality det ected. Urine Random Prot Electrophor Note See comment [facility] Comment on above: Protein electrophore sis scan will follow via computer, mail, or sword swallower delivery. Performed at: [employer] [facility] [address] [id number] Nursing Home Assistant: Prakash Ballesteros PhD, Phone: [phone] Platelet mean volume Auto (B ld) [Entitic vol]Ordered By: Anali Card on 08-26-2021 Platelet mean volume (Bld) [Entitic vol] 9.9 fL 6.3-10.7 [facility] Platelet poor plasma interna tional normalized ratio (INR) by coagulation assay (relatOrdered By: Anali Card on 08-26-2021 INR Coag (PPP) [Relative time] 1.0 {INR} [facility] Comment on above: INR Therapeutic Rang e [...] actual/normal Coag (PPP) [Relative time] 35.7 sec [facility] Platelets Auto (Bld) [#/Vol] Ordered By: Anali Card on 08-26-2021 Platelets (Bld) [#/Vol] 243 10*3/uL 150-450 [facility] Protein Auto test strip (U) [Mass/Vol]Ordered By: Anali Card on 08-26-2021 Protein (U) [Mass/Vol] Negative Negative [facility] Protein [Mass/volume] in Ser um or PlasmaOrdered By: Anali Card on 08-26-2021 Protein [Mass/Vol] 6.7 g/dL 6.1-7.9 [facility] Protein [Mass/Vol] 6.5 g/dL [facility] Protein [Mass/volume] in Uri neOrdered By: Anali Card on 08-26-2021 Protein (U) [Mass/Vol] 9.0 mg/dL Not Estab. [facility] Protein.monoclonal/Protein.t otal in 24 hour Urine by ElectrophoresisOrdered By: Anali Card on 08-26-2021 Protein.monoclonal Elph (24H U) [Mass fraction] Not observed % Not Observed [facility] RBC Auto (Bld) [#/Vol]Ordere d By: Anali Card on 08-26-2021 RBC (Bld) [#/Vol] 4.40 10*6/uL 3.60-5.00 [facility] Reagin Ab [Presence] in Seru m by RPROrdered By: Anali Card on 08-26-2021 Reagin Ab RPR Ql (S) Non-Reactive Non Reactive [facility] Comment on above: Performed at: [employer] [facility] [place] [address] Nursing Home Assistant: Prakash Ballesteros PhD, Phone: [phone] Serum angiotensin converting enzyme (MARC) measurementOrdered By: Anali Card on 08-26-2021 Angiotensin converting enzyme [Catalytic activity/Vol] 33 U/L [facility] Comment on above: Performed at: [employer] [address] [id number] Nursing Home Assistant: Prakash Ballesteros PhD, Phone: [phone] Serum globulin measurement ( mass/volume)Ordered By: Anali Card on 08-26-2021 Globulin (S) [Mass/Vol] 2.5 g/dL [facility] Serum hepatitis B virus surf marc antibody detectionOrdered By: Anali Card on 08-26-2021 HBV surface Ab Ql (S) Reactive [facility] Comment on above: Non Reactive: Incons istent with immunity, less than 10 mIU/mL Reactive: Consistent with immunity, greater than 9.9 mIU/mL Serum or plasma C reactive p rotein measurement (mass/volume)Ordered By: Anali Card on 08-26-2021 CRP [Mass/Vol] 0.5 mg/dL 0.0-1.0 [facility] Serum or plasma alanine shell otransferase measurement without P-5'-P (enzymatic activiOrdered By: Anali Card on 08-26-2021 ALT No additional P-5'-P [Catalytic activity/Vol] 37 U/L 10-60 [facility] Serum or plasma albumin/glob ulin mass ratioOrdered By: Anali Card on 08-26-2021 Albumin/Globulin [Mass ratio] 1.8 {ratio} [facility] Albumin/Globulin [Mass ratio] 1.6 {ratio} [facility] Serum or plasma alkaline kiesha sphatase measurement (enzymatic activity/volume)Ordered By: Anali Card on 08-26-2021 ALP [Catalytic activity/Vol] 41 U/L 32-92 [facility] Serum or plasma alpha 1 glob ulin measurement by electrophoresis (mass/volume)Ordered By: Anali Card on 08-26-2021 Alpha 1 globulin Elph [Mass/Vol] 0.2 g/dL [facility] Serum or plasma alpha 2 glob ulin measurement by electrophoresis (mass/volume)Ordered By: Anali Card on 08-26-2021 Alpha 2 globulin Elph [Mass/Vol] 0.6 g/dL [facility] Serum or plasma aspartate am inotransferase measurement (enzymatic activity/volume)Ordered By: Anali Card on 08-26-2021 AST [Catalytic activity/Vol] 26 U/L 10-42 [facility] Serum or plasma beta globuli n measurement by electrophoresis (mass/volume)Ordered By: Anali Card on 08-26-2021 Beta globulin Elph [Mass/Vol] 1.0 g/dL [facility] Serum or plasma calcium lenka urement (mass/volume)Ordered By: Anali Card on 08-26-2021 Calcium [Mass/Vol] 9.6 mg/dL 8.2-10.2 [facility] Serum or plasma chloride bob surement (moles/volume)Ordered By: Anali Card on 08-26-2021 Chloride [Moles/Vol] 105 mmol/L 95-114 [facility] Serum or plasma gamma globul in measurement by electrophoresis (mass/volume)Ordered By: Anali Card on 08-26-2021 Gamma globulin Elph [Mass/Vol] 0.7 g/dL [facility] Serum or plasma glucose lenka urement (mass/volume)Ordered By: Anali Card on 08-26-2021 Glucose [Mass/Vol] 108 mg/dL 70-100 [facility] Comment on above: ADA recommended refe rence [...] 08-26-2021 HCV Ab IA Ql See comment [facility] Comment on above: Negative Not infected with HCV, unless recent infection is suspected or other evidence exists to indicate HCV infection. Effective September 02, 2021 HCV Antibody reflex to MALIKA will be made non-orderable. This will affect any Custom Profile that includes 370123 HCV Antibody reflex to MALIKA. [employer] offers order code [id number] HCV Antibody RFX to Quant PCR as an alternative. Performed at: [facility] [id number] Nursing Home Assistant: Prakash Ballesteros PhD, Phone: [phone] Serum or plasma hepatitis C virus antibody signal/cutoff ratio by immunoassay (relatiOrdered By: Anali Card on 08-26-2021 HCV Ab Signal/Cutoff IA [Rel units/Vol] <0.1 s/co ratio [facility] Serum or plasma potassium me asurement (moles/volume)Ordered By: Anali Card on 08-26-2021 Potassium [Moles/Vol] 4.5 mmol/L 3.5-5.1 [facility] Serum or plasma sodium measu rement (moles/volume)Ordered By: Anali Card on 08-26-2021 Sodium [Moles/Vol] 142 mmol/L 136-146 [facility] Serum or plasma thyroglobuli n antibody assay (units/volume)Ordered By: Anali Card on 08-26-2021 Thyroglobulin Ab Qn [IU]/mL [facility] Comment on above: Thyroglobulin Antibo dy measured by [employer] Methodology Performed at: [employer] [id number] Nursing Home Assistant: Prakash Ballesteros PhD, Phone: [phone] Serum or plasma thyroperoxid ase antibody assay (units/volume)Ordered By: Anali Card on 08-26-2021 TPO Ab Qn 12 [IU]/mL [facility] Comment on above: Performed at: [address] [id number] Nursing Home Assistant: Prakash Ballesteros PhD, Phone: [phone] Serum or plasma total biliru bin measurement (mass/volume)Ordered By: Anali Card on 08-26-2021 Bilirubin [Mass/Vol] 0.5 mg/dL 0.3-1.2 [facility] Serum or plasma total carbon dioxide measurement (moles/volume)Ordered By: Anali Card on 08-26-2021 CO2 [Moles/Vol] 26.9 mmol/L 22.0-30.0 [facility] Serum or plasma urea nitroge n measurement (mass/volume)Ordered By: Anali Card on 08-26-2021 Urea nitrogen [Mass/Vol] 17 mg/dL 9-23 [facility] Specific gravity Auto test s trip (U) [Rel density]Ordered By: Anali Card on 08-26-2021 Specific gravity (U) [Rel density] 1.017 1.001-1.03 0 [facility] Squamous epithelial cells de tection in urine sediment by light microscopyOrdered By: Anali Card on 08-26-2021 Epithelial cells.squamous LM Ql (Urine sed) None seen [HPF] [facility] TSH DL <= 0.005 mIU/L QnOrde red By: Anali Card on 08-26-2021 TSH Qn 1.43 m[IU]/L 0.45-5.33 [facility] TT plasOrdered By: Anali hall on 08-26-2021 Thrombin time Coag (PPP) [Time] 20.6 sec [facility] Thyroxine (T4) free [Mass/vo lume] in Serum or PlasmaOrdered By: Anali Card on 08-26-2021 Free T4 [Mass/Vol] 0.77 ng/dL 0.61-1.12 [facility] Urine alpha 1 globulin/total protein by electrophoresisOrdered By: Anali Card on 08-26-2021 Alpha 1 globulin Elph (U) [Mass fraction] 7.7 % [facility] Urine alpha 2 globulin/total protein ratio by electrophoresisOrdered By: Anali Card on 08-26-2021 Alpha 2 globulin Elph (U) [Mass fraction] 15.7 % [facility] Urine bacteria detection by automated methodOrdered By: Anali Card on 08-26-2021 Bacteria Auto Ql (U) None seen None Seen [facility] Urine beta globulin measurem ent by electrophoresis (mass/volume)Ordered By: Anali Card on 08-26-2021 Beta globulin Elph (U) [Mass/Vol] 37.4 % [facility] Urine clarity by refractomet ry automatedOrdered By: Anali Card on 08-26-2021 Clarity Refractometry automated (U) Clear Clear [facility] Urine glucose measurement by automated test strip (mass/volume)Ordered By: Anali Card on 08-26-2021 Glucose Auto test strip (U) [Mass/Vol] Normal mg/dL Normal [facility] Urine hemoglobin detection b y automated test stripOrdered By: Anali Card on 08-26-2021 Hemoglobin Auto test strip Ql (U) Negative Negative [facility] Urine leukocyte esterase det ection by automated test stripOrdered By: Anali Card on 08-26-2021 Leukocyte esterase Auto test strip Ql (U) Negative Negative [facility] Urobilinogen Auto test strip (U) [Mass/Vol]Ordered By: Anali Card on 08-26-2021 Urobilinogen (U) [Mass/Vol] Normal mg/dL Normal [facility] aPTT.lupus sensitive (LA scr een)Ordered By: Anali Card on 08-26-2021 aPTT.lupus sensitive Coag (PPP) [Time] 35.3 sec [facility] aPTT.lupus sensitive/aPTT.scotty pus sensitive W excess phospholipid (screen to confirm raOrdered By: Anali Card on 08-26-2021 aPTT.lupus sensitive/aPTT.lupus sensitive W excess phospholipid Coag (PPP) [Ratio] 1.04 Ratio [facility] pH Auto test strip (U)Ordere d By: Anali Card on 08-26-2021 pH (U) 6.0 [pH] 5.0-9.0 [facility] Encounters Encounter Date Encounter Type Care Provider Facility Start: 05-25-2023 End: 05-25-2023 ambulatory BILL SOTELO Not Available Start: 05-25-2023 End: 05-25-2023 Departed Referred Bill Sotelo Work Phone: [facility] Start: 02-12-2023 End: 02-12-2023 ambulatory Anali Card Facility:[facility] Start: 02-12-2023 End: 02-12-2023 ambulatory MD Sacha Monroy Work Phone: [facility] Work Phone: Start: 02-12-2023 End: 02-12-2023 Patient encounter procedure MD Sacha Monroy Work Phone: [facility] [address] Work Phone: Start: 06-06-2022 End: 06-07-[address] ANALI CARD Facility:[facility] Start: 12-25-2021 End: 12-26-[address] ANALI CARD Facility:[facility] Start: 09-05-2021 End: 09-05-2021 Patient encounter procedure MD Sacha Monroy Work Phone: [facility] [address] Start: 08-26-2021 End: 08-26-2021 Patient encounter procedure MD Sacha Monroy Work Phone: [facility] [address] Start: 08-22-2021 End: 08-22-[address] LUCERO KUHN Facility:[facility] Procedures Date Procedure Procedure Detail Performing Clinician Start: 09-05-2021 Plain X-ray of bilat eral wrists MD Sacha Monroy Work Phone: Start: 09-05-2021 Plain X-ray of bilat eral hands MD Sacha Monroy Work Phone: Plan of Treatment Date Care Activity Detail Author [address] [facility] Work Phone: Albumin [Mass/volume] in Serum or Plasma [facility] Work Phone: Albumin/Globulin ratio [facility] Work Phone: Angiotensin converti ng enzyme [Enzymatic activity/volume] in Serum or Plasma [facility] Work Phone: aPTT.lupus sensitive (LA screen) [facility] Work Phone: aPTT.lupus sensitive W excess phospholipid actual/Normal (normalized LA confirm) [facility] Work Phone: aPTT.lupus sensitive /aPTT.lupus sensitive W excess phospholipid (screen to confirm ra [facility] Work Phone: dRVVT (LA screen) [facility] Work Phone: Electrophoresis: [id number] [facility] Work Phone: Electrophoresis: [id number] [facility] Work Phone: Electrophoresis: beta-globulin [facility] Work Phone: Electrophoresis: gamma globulin [facility] Work Phone: Globulin [Mass/volume] in Serum [facility] Work Phone: Hepatitis B core antibody measurement [facility] Work Phone: Hepatitis B virus byers rface Ab [Presence] in Serum [facility] Work Phone: Hepatitis B virus byers rface Ag [Presence] in Serum or Plasma by Immunoassay [facility] Work Phone: Hepatitis C virus Ab Signal/Cutoff in Serum or Plasma by Immunoassay [place] [facility] Work Phone: Hepatitis C virus RN A [Presence] in Serum or Plasma by MALIKA with probe detection [facility] Work Phone: IgA [Mass/volume] in Serum or Plasma [facility] Work Phone: IgG [Mass/volume] in Serum or Plasma [facility] Work Phone: IgM [Mass/volume] in Serum or Plasma [facility] Work Phone: Immunofixation for Urine Fir [facility] Work Phone: Lupus anticoagulant [Interpretation] in Platelet poor plasma [facility] Work Phone: Measurement of monoc lonal protein concentration [facility] Work Phone: Protein [Mass/volume] in Serum or Plasma [facility] Work Phone: Protein [Mass/volume] in Urine [facility] Work Phone: Reagin Ab [Presence] in Serum by RPR [facility] Work Phone: Serum immunofixation [facility] Work Phone: Thrombin time [facility] Work Phone: Thyroglobulin Ab [Un its/volume] in Serum or Plasma [facility] Work Phone: Thyroperoxidase Ab [ Units/volume] in Serum or Plasma [facility] Work Phone: Immunizations Immunization Date Immunization Notes Care Provider [facility] 05-30-2020 COVID-19 mRNA-1273 (Arnoldo) MD Sacha Monroy Work Phone: [facility] 05-02-2020 COVID-19 mRNA-1273 (Arnoldo) MD Sacha Monroy Work Phone: [facility] Payers Date Payer Category Payer Self-pay [id number] 1965 Unknown [id number] 2.16.84 [id number] 1965 Unknown [id number] 2.16.84 [id number] 1965 Unknown [id number] 2.16.84 [id number] 1965 Unknown [id number] 2.16.84 [id number] 1961 Unknown [id number] Unknown [employer] [id number] Unknown [id number] 2.16.8 [id number] Unknown [id number] 2.16.8 [id number] Social History Date Type Detail Facility Start: 09-26-2020 End: 09-26-2020 Tobacco smoking status NHIS Never smoked tobacco (finding) [facility] Start: 1965 Sex Assigned At Female F [facility] Evaluation note Note Date & Type Note Facility Evaluation note No assessment information availa ble [facility] Work Phone: Family History No Family History Records Found Relationship Condition Age at Onset Recorded Date/T honey father Coronary artery disease Unknown Not Specified Diverticulitis of colon Unknown Mitral valve prolapse Unknown Advance Directives No Advanced Directives Records Found Advance Directive Response Recorded Date/ Time Advance Directives No September 24 9:13am Advance Directive Response Recorded Date/ Time Advance Directives No September 24 8:13am Chief Complaint and Reason for Visit [...] Team Status: Inactive Member Role Status Dates Bill Sotelo Attending Provider Active Start: Roman howard [...] DATE CREATED AUTHOR AUTHOR'S ORGANIZ ATION 05/26/2023 [facility] EPIC DATE CREATED AUTHOR AUTHOR'S ORGANIZ ATION 06/23/2023 [facility] FOR RECORDS PERTAINING TO PATIENTS WHO ARE [...] BE BASED ON THE PRIMARY CLINICAL RECORDS. [employer] provides no warranty or guarantee of the accuracy or completeness of information in this document.
[2023-12-25 09:50] LABS: Basophils Percent Auto 0.7 % (0.2-2.0); Eosinophils Absolute Auto 0.1 10^3/uL (0.0-0.7); Eosinophils Percent Auto 2.6 % (0.9-7.0); Hematocrit 40.5 % (36.0-48.0); Hemoglobin 13.2 g/dL (12.0-16.0); Lymphocytes Absolute Auto 1.3 10^3/uL (1.2-3.8); Lymphocytes Percent Auto 28.6 % (20.5-60.0); Mean Corpuscular HGB Conc 32.6 g/dL (29.9-35.2); Mean Platelet Volume 10.4 fL (9.5-13.5); Monocytes Absolute Auto 0.3 10^3/uL (0.3-0.8); Neutrophils Absolute Auto 2.8 10^3/uL (1.4-6.5); Neutrophils Percent Auto 61.1 % (43.0-75.0); Platelet Count 232 10^3/uL (150-450); Red Cell Distribution Width 13.2 % (11.0-15.0); White Blood Count 4.5 10^3/uL (4.0-11.0)
[2023-12-25 10:42] LABS: Estimated Average Glucose 117 mg/dL
[2023-12-25 11:28] LABS: Glycohemoglobin A1C 5.7 % (4.5-6.2)
[2023-12-25 11:51] LABS: Alanine Aminotransferase 51 U/L (14-59); Albumin Globulin Ratio 1.2; Albumin Level 3.7 g/dL (3.4-5.0); Alkaline Phosphatase 85 U/L (46-116); Anion Gap 12.1; Aspartate Amino Transferase 23 U/L (15-37); BUN Creatinine Ratio 21.5; Bilirubin Total 0.4 mg/dL (0.2-1.0); Calcium 9.1 mg/dL (8.5-10.1); Carbon Dioxide 29.4 mmol/L (21.0-32.0); Chloride 102 mmol/L (98-107); Chol HDL Ratio 4.8; Cholesterol 265 mg/dL (<=200); Estimated GFR (African America >60 (>=60); Estimated GFR (Non-African Ame >60 (>=60); Globulin 3.1 g/dL; Glucose 99 mg/dL (74-106); HDL Cholesterol 55 mg/dL (40-60); Potassium 4.5 mmol/L (3.5-5.1); Sodium 139 mmol/L (136-145); Thyroid Stimulating Hormone 1.516 uIU/mL (0.358-3.740); Total Protein 6.8 g/dL (6.4-8.2); Triglycerides 156 mg/dL (<=150); VLDL CHOLESTEROL 31.2 mg/dL
[2023-12-25 12:45] LABS: Free T4 0.98 ng/dL (0.76-1.46)
== END 2023-12-25 09:14 | disposition home or self-care (01) ==
LOC: LAB 09:17
PROVIDERS: PCP Family Medicine; Visit Provider Family Medicine
DX: Z00.00 Encounter for general adult medical examination without abnormal findings (principal)
CPT/HCPCS: 36415; 80053; 80061; 83036; 84439; 84443; 85025

== ENCOUNTER 2024-02-09 08:12 | Outpatient (OUT) | payer BC, SELFPAY ==
--- NOTE | 2024-02-09 08:21 | XR_ITS ---
The [address] [address] Patient Name: JUAN CARLOS LOU MRN: [id number] date: 1965 Sex: F Assigned Patient Location: [facility] Current Patient Location: Accession/Order Number: [id number] Exam Date: 02/09/2024 08:27 Report Date: 02/10/2024 05:56 At the request of: CIARRA VILLATORO Procedure: XR hip RT 2V w/ pelvis PROCEDURE: XR hip RT 2V w/ pelvis HISTORY: Right Hip Pain M25.551 COMPARISON: None. FINDINGS: BONES:No fracture, acute abnormality, or significant arthropathy. SOFT TISSUES:No visible soft tissue swelling. EFFUSION:None visible. OTHER: Negative. XR/XR hip RT 2V w/ pelvis IMPRESSION: 1. No acute or suspicious bone abnormality. 2. No significant degenerative changes. Electronically authenticated by: SHAYY KAMARA Date: 02/10/2024 05:56
--- OUTSIDE RECORDS SUMMARY | 2024-02-09 08:23 | XMS_ITS | CCD ---
Author Organization [facility] Care Team Providers Care Experimental Assembler Name Role Phone MD Sacha Monroy Primary Care Provider [phone] MD Vishal Card Attending Provider KYAW, DR BRIONES Admitting Unavailable KYAW, DR BRIONES Attending Unavailable IRVING, DR LAFLEUR Primary Care Unavailable KYAW, DR BRIONES Consulting Unavailable KARELVIRAK, DR BARKER Admitting Unavailable KARELVIRAK, DR BARKRE Attending Unavailable IRVING, DR LAFLEUR Primary Care Unavailable KARNELIDA, DR BARKER Consulting Unavailable KYAW, DR BRIONES Admitting Unavailable KYAW, DR BRIONES Attending Unavailable IRVING, DR LAFLEUR Primary Care Unavailable KYAW, DR BRIONES Consulting Unavailable MD Sacha Monroy Primary Care Provider [phone] MD Anali Card Attending Provider BILL SOTELO Attending Unavailable Bill Sotelo Attending Provider [phone] Bill Sotelo Attending Unavailable Bill Soteol Admitting Unavailable Anali Card Attending Unavailable Anali [...] 06-06-2022 Chronic Other aftercare (1 source) Other usp (current) drug therapy; Translations: [OTH BATTERY CHARGER TESTER CURRENT DRUG THERAPY] Onset: 06-08-2022 Episodic Past [...] Results Test Name Value Interpretation Reference Range [facility] 05-25-2023 L Specimen: [id number] Received: 05/26/23 Status: MARIELA Mcgrath Num: [id number] Spec Type: Surgical Subm Dr: Bill Sotelo Tissues: A Cervical Polyp (CERVICAL POLYP) Procedures: HE/2, Gross/Micro L4 Age/ Patient Sex Location Account Attending Physician Juan Carlos Ogden 57/F LABELL [id number] Bill Sotelo SPEC NUM: [id number] RECD: 05/26/23 STATUS: SOUJarvis RE NUM: [id number] DARIUS: 05/25/23- SUBM DR: Bill Sotelo ENTERED: 05/26/[address]: Anali,Lab SPEC TYPE: Surgical DEPT: ADELOS COATES ORDERED: HE/2, Gross/Micro L4 ORDERED: HE/2, [...] in one cassette labeled A1. CPT Codes 63600 Specimen: [id number] Received: 05/26/23 Status: MARIELA Mcgrath Num: [id number] Spec Type: Surgical Subm Dr: Bill Sotelo Tissues: A Cervical Polyp (CERVICAL POLYP) Procedures: JEREMY/Stephany, Gross/Micro L4 Patient: AlinJuan Carlos [id number] (Continued) Signed (signature on file) Danilo-aNif Neely MD 05/27/23 1009 Normal [facility] Alanine aminotransferase [En zymatic activity/volume] in Serum or PlasmaOrdered By: Anali Card on 02-12-2023 ALT [Catalytic activity/Vol] 70 U/L High 7-52 [facility] Comment on above: Performed By: #### C MP, CBC #### [facility] [address] [place] [address] [place] Albumin [Mass/volume] in Ser um or Plasma by Bromocresol green (BCG) dye binding methoOrdered By: Anali Card on 02-12-2023 Albumin BCG dye [Mass/Vol] 4.3 g/dL 3.5-5.7 [facility] Alkaline phosphatase [Enzyma tic activity/volume] in Serum or PlasmaOrdered By: Anali Card on 02-12-2023 ALP [Catalytic activity/Vol] 80 U/L Normal 34-104 [facility] Comment on above: Result Comment: PERF ORMED BY: [place] [address] PATHOLOGIST RECRUITER OLGA LIDIA CORONA M.D. Performed By: #### C MP, CBC #### [facility] [address] [place] [address] Aspartate aminotransferase [ Enzymatic activity/volume] in Serum or PlasmaOrdered By: Anali Card on 02-12-2023 AST [Catalytic activity/Vol] 36 U/L Normal 13-39 [facility] Comment on above: Performed By: #### C MP, CBC #### [facility] [address] [place] [address] [place] Automated basophil %Ordered By: Anali Card on 10-12-2023 Basophils/100 WBC (Bld) 0.4 % Normal . [facility] Comment on above: Performed By: #### C MP, CBC #### [address] Automated basophil countOrde red By: Anali Lalrow on 02-12-2023 Basophils (Bld) [#/Vol] 0.0 10*3/uL Normal 0.0-0.2 [facility] Comment on above: Result Comment: PERF ORMED BY: [place] [address] PATHOLOGIST RECRUITER OLGA LIDIA CORONA M.D. Performed By: #### C MP, CBC #### [address] Automated blood monocyte cou ntOrdered By: Anali Card on 02-12-2023 Monocytes (Bld) [#/Vol] 0.4 10*3/uL Normal 0.0-0.8 [facility] Comment on above: Performed By: #### C MP, CBC #### [address] Automated eosinophil %Ordere d By: Anali Kyaw on 02-12-2023 Eosinophils/100 WBC (Bld) 2.1 % Normal . [facility] Comment on above: Performed By: #### C MP, CBC #### [address] Automated eosinophil countOr dered By: Anali Kyaw on 02-12-2023 Eosinophils (Bld) [#/Vol] 0.1 10*3/uL Normal 0.0-0.45 [facility] Comment on above: Performed By: #### C MP, CBC #### [address] Automated monocyte %Ordered By: Analigardenia Card on 02-12-2023 Monocytes/100 WBC (Bld) 8.2 % Normal . [facility] Comment on above: Performed By: #### C MP, CBC #### [address] Automated neutrophil %Ordere d By: Anali Card on 02-12-2023 Neutrophils/100 WBC (Bld) 58.3 % Normal . [facility] Comment on above: Performed By: #### C MP, CBC #### [facility] [address] Bilirubin.total [Mass/volume ] in Serum or PlasmaOrdered By: Anali Lalrow on 02-12-2023 Bilirubin [Mass/Vol] 0.5 mg/dL Normal 0.3-1.0 [facility] Comment on above: Performed By: #### C MP, CBC #### [address] Calcium [Mass/volume] in Ser um or PlasmaOrdered By: Anali Lalrow on 02-12-2023 Calcium [Mass/Vol] 9.2 mg/dL Normal 8.6-10.3 [facility] Comment on above: Performed By: #### C MP, CBC #### [address] Carbon dioxide, total [Moles /volume] in Serum or PlasmaOrdered By: Anali Lalrow on 02-12-2023 CO2 [Moles/Vol] 28.6 mmol/L Normal 21.0-31.0 [facility] Comment on above: Performed By: #### C MP, CBC #### [address] Chloride [Moles/volume] in S tex or PlasmaOrdered By: Anali Kyaw on 02-12-2023 Chloride [Moles/Vol] 106 mmol/L Normal 98-107 [facility] Comment on above: Performed By: #### C MP, CBC #### [address] Complete Blood Count Auto Di ffon 02-12-2023 Mean Corpuscular HGB Conc 33.5 g/dL Normal 32.0-35.0 [facility] Comment on above: Performed By: #### C MP, CBC #### [address] NRBC% 0.1 /100{WBC} Normal 0-0.5 [facility] Comment on above: Performed By: #### C MP, CBC #### [address] Comprehensive Metabolic Pane kim 02-12-2023 Albumin [Mass/Vol] 4.3 g/dL Normal 3.5-5.7 [facility] Comment on above: Performed By: #### C MP, CBC #### [address] GFR/1.73 sq M.predicted MDRD (S/P/Bld) [Vol rate/Area] mL/min/{1.73_m2} Normal [facility] Comment on above: Performed By: #### C MP, CBC #### [address] Creatinine [Mass/volume] in Serum or PlasmaOrdered By: Anali Card on 02-12-2023 Creatinine [Mass/Vol] 0.93 mg/dL Normal 0.60-1.20 [facility] Comment on above: Performed By: #### C MP, CBC #### [address] Erythrocyte distribution wid th [Ratio] by Automated countOrdered By: Anali Card on 02-12-2023 Erythrocyte distribution width (RBC) [Ratio] 14.5 % Normal 11.9-15.3 [facility] Comment on above: Performed By: #### C MP, CBC #### [address] Erythrocytes [#/volume] in B lood by Automated countOrdered By: Anali Card on 02-12-2023 RBC (Bld) [#/Vol] 4.32 10*6/uL Normal 3.60-5.00 [facility] Comment on above: Performed By: #### C MP, CBC #### [address] Glucose [Mass/volume] in Ser um or PlasmaOrdered By: Anali Card on 02-12-2023 Glucose [Mass/Vol] 107 mg/dL High 70-100 [facility] Comment on above: ADA recommended refe rence rangeRandom Glucose Reference Range is dependent on time and content of last meal. Glucose of more than 200 mg/dL in a nonstressed, ambulatory subject supports the diagnosis of Diabetes Mellitus. Result Comment: [place] om Glucose Reference Range is dependent on time and content of last meal. Glucose of more than 200 mg/dL in a nonstressed, ambulatory subject supports the diagnosis of Diabetes Mellitus. ADA recommended reference range Performed By: #### C MP, CBC #### [address] Hematocrit [Volume Fraction] of Blood by Automated countOrdered By: Analigardenia Card on 02-12-2023 Hematocrit (Bld) [Volume fraction] 39.2 % Normal 34.0-46.4 [facility] Comment on above: Performed By: #### C MP, CBC #### [address] Hemoglobin [Mass/volume] in BloodOrdered By: Anali Card on 02-12-2023 Hemoglobin (Bld) [Mass/Vol] 13.1 g/dL Normal 11.8-15.4 [facility] Comment on above: Performed By: #### C MP, CBC #### [address] Leukocytes [#/volume] correc henry for nucleated erythrocytes in Blood by Automated counOrdered By: Anali Card on 02-12-2023 WBC corrected for nucl RBC Auto (Bld) [#/Vol] 4.9 10*3/uL 3.8-11.6 [facility] Leukocytes [#/volume] in Blo od by Automated countOrdered By: Anali Card on 02-12-2023 WBC (Bld) [#/Vol] 4.9 10*3/uL Normal 3.8-11.6 [facility] Comment on above: Performed By: #### C MP, CBC #### [place] [address] [place] Lymphocytes [#/volume] in Bl ood by Automated countOrdered By: Anali Lalrow on 02-12-2023 Lymphocytes (Bld) [#/Vol] 1.5 10*3/uL Normal 1.00-4.8 [facility] Comment on above: Performed By: #### C MP, CBC #### [address] Lymphocytes/100 leukocytes i n Blood by Automated countOrdered By: Anali Lalrow on 02-12-2023 Lymphocytes/100 WBC (Bld) 31.0 % Normal . [facility] Comment on above: Performed By: #### C MP, CBC #### [address] MCH [Entitic mass] by Automa henry countOrdered By: Anali Lalrow on 02-12-2023 MCH (RBC) [Entitic mass] 30.4 pg Normal 24.7-34.3 [facility] Comment on above: Performed By: #### C MP, CBC #### [address] MCHC Auto (RBC) [Mass/Vol]Or dered By: Anali Lalrow on 02-12-2023 MCHC (RBC) [Mass/Vol] 33.5 g/dL 32.0-35.0 [facility] MCV [Entitic volume] by Auto mated countOrdered By: Anali Lalrow on 02-12-2023 MCV (RBC) [Entitic vol] 90.8 fL Normal 80-100 [facility] Comment on above: Performed By: #### C MP, CBC #### [address] Neutrophils [#/volume] in Bl ood by Automated countOrdered By: Anali Lalrow on 02-12-2023 Neutrophils (Bld) [#/Vol] 2.9 10*3/uL Normal 1.8-7.7 [facility] Comment on above: Performed By: #### C MP, CBC #### [address] No Panel InformationOrdered By: Anali Lalrow on 02-12-2023 Estimated GFR (CKD-EPI) > 60.0 mL/Min [facility] Creatinine Clearance (Chem N/A [facility] Nucleated erythrocytes [Pres ence] in Blood by Automated countOrdered By: Anali Lalrow on 02-12-2023 Nucleated RBC Auto Ql (Bld) 0.1 /100{WBC} 0-0.5 [facility] Platelet mean volume [Entiti c volume] in Blood by Automated countOrdered By: Anali Kyaw on 02-12-2023 Platelet mean volume (Bld) [Entitic vol] 9.6 fL Normal 6.3-10.7 [facility] Comment on above: Performed By: #### C MP, CBC #### [place] [address] [place] Platelets [#/volume] in Bloo d by Automated countOrdered By: Anali Card on 02-12-2023 Platelets (Bld) [#/Vol] 202 10*3/uL Normal 150-450 [facility] Comment on above: Performed By: #### C MP, CBC #### [facility] [address] [place] [address] [place] Potassium [Moles/volume] in Serum or PlasmaOrdered By: Anali Card on 02-12-2023 Potassium [Moles/Vol] 4.6 mmol/L Normal 3.5-5.1 [facility] Comment on above: Performed By: #### C MP, CBC #### [place] [address] [place] Protein [Mass/volume] in Ser um or PlasmaOrdered By: Anali Card on 02-12-2023 Protein [Mass/Vol] 6.6 g/dL Normal 6.4-8.9 [facility] Comment on above: Performed By: #### C MP, CBC #### [address] Serum globulin measurement b y calculation (mass/volume)Ordered By: Anali Card on 02-12-2023 Globulin (S) [Mass/Vol] 2.3 g/dL Normal [facility] Comment on above: Performed By: #### C MP, CBC #### [address] Serum or plasma albumin/glob ulin mass ratioOrdered By: Anali Lalrow on 02-12-2023 Albumin/Globulin [Mass ratio] 1.9 {ratio} Normal [facility] Comment on above: Performed By: #### C MP, CBC #### [address] Serum or plasma anion gap de terminationOrdered By: Anali Lalrow on 02-12-2023 Anion gap [Moles/Vol] 11.0 mmol/L Normal 6.0-15.0 [facility] Comment on above: Performed By: #### C MP, CBC #### [address] Sodium [Moles/volume] in Ser um or PlasmaOrdered By: Anali Kyaw on 02-12-2023 Sodium [Moles/Vol] 141 mmol/L Normal 136-145 [facility] Comment on above: Performed By: #### C MP, CBC #### [address] Urea nitrogen [Mass/volume] in Serum or PlasmaOrdered By: Anali Lalrow on 02-12-2023 Urea nitrogen [Mass/Vol] 16 mg/dL Normal 7-25 [facility] Comment on above: Performed By: #### C MP, CBC #### [address] ANTICARDIOLIPIN AB (SELINA) IGG on 06-09-2022 Anticardiolipin Ab,IgG,Qn <9 Normal 0-14 [facility] Comment on above: Result Comment: Nega tive: <15 Indeterminate: 15 - 20 Low-Med Positive: >20 - 80 High Positive: >80 Performed By: #### C ARDLIP #### [facility] [address] [address] [address] Allison Neely CBC AUTO DIFFon 06-06-2022 BASO # 0.0 103/ul Normal 0.0-0.1 [facility] Comment on above: Performed By: #### C BC #### [facility] [address] [place] [address] Dr. Allison Neely Basophils/100 WBC (Bld) 0.5 % Normal 0.2-2.0 [facility] Comment on above: Performed By: #### C BC #### [facility] [address] [place] [address] Dr. Allison Neely EO # 0.1 103/ul Normal 0.0-0.7 [facility] Comment on above: Performed By: #### C BC #### [facility] [address] [place] [address] Dr. Allison Neely Eosinophils/100 WBC (Bld) 0.9 % Normal 0.9-7.0 [facility] Comment on above: Performed By: #### C BC #### [facility] [address] [place] [address] Dr. Allison Neely Erythrocyte distribution width (RBC) [Ratio] 13.7 % Normal 11.0-15.0 [facility] Comment on above: Performed By: #### C BC #### [facility] [address] [place] [address] Dr. Allison Neely Hematocrit (Bld) [Volume fraction] 41.8 % Normal 36.0-48.0 [facility] Comment on above: Performed By: #### C BC #### [facility] [address] [place] [address] Dr. Allison Neely Hemoglobin (Bld) [Mass/Vol] 13.0 g/dL Normal 12.0-16.0 [facility] Comment on above: Performed By: #### C BC #### [facility] [address] [place] [address] Dr. Allison Neely IG # 0.01 10e3/ul Normal 0.00-0.03 [facility] Comment on above: Performed By: #### C BC #### [facility] [address] [place] [address] Dr. Allison Neely IG % 0.2 % Normal 0.0-0.5 [facility] Comment on above: Performed By: #### C BC #### [facility] [address] [place] [address] Dr. Allison Neley LYMPH # 1.7 103/ul Normal 1.2-3.8 [facility] Comment on above: Performed By: #### C BC #### [facility] [address] [place] [address] Dr. Allison Neely Lymphocytes/100 WBC (Bld) 30.5 % Normal 20.5-60.0 [facility] Comment on above: Performed By: #### C BC #### [facility] [address] [place] [address] Dr. Allison Neely MANUAL DIFF REQ NO Normal [facility] Comment on above: Performed By: #### C BC #### [facility] [address] [place] [address] Dr. Allison Neely MCH (RBC) [Entitic mass] 29.7 pg Normal 26.7-34.0 [facility] Comment on above: Performed By: #### C BC #### [facility] [address] [place] [address] Dr. Allison Neely MCHC (RBC) [Mass/Vol] 31.1 g/dL Normal 29.9-35.2 [facility] Comment on above: Performed By: #### C BC #### [facility] [address] [place] [address] Dr. Allison Neely MCV (RBC) [Entitic vol] 95.7 fL Normal 81.0-99.0 [facility] Comment on above: Performed By: #### C BC #### [facility] [address] [place] [address] Dr. Allison Neely MONO # 0.3 103/ul Normal 0.3-0.8 [facility] Comment on above: Performed By: #### C BC #### [facility] [address] [place] [address] Dr. Allison Neely Monocytes/100 WBC (Bld) 5.1 % Normal 1.7-12.0 [facility] Comment on above: Performed By: #### C BC #### [facility] [address] [place] [address] Dr. Allison Neely NEUT # 3.5 103/ul Normal 1.4-6.5 [facility] Comment on above: Performed By: #### C BC #### [facility] [address] [place] [address] Dr. Allison Neely Neutrophils/100 WBC (Bld) 62.8 % Normal 43.0-75.0 [facility] Comment on above: Performed By: #### C BC #### [facility] [address] [place] [address] Dr. Allison Neely Platelet mean volume (Bld) [Entitic vol] 12.0 fL Normal 9.5-13.5 [facility] Comment on above: Performed By: #### C BC #### [facility] [address] [place] [address] Dr. Allison Neely PLT 274 103/ul Normal 150-450 [facility] Comment on above: Performed By: #### C BC #### [facility] [address] [place] [address] Dr. Allison Neely RBC 4.37 106/ul Normal 4.20-5.40 [facility] Comment on above: Performed By: #### C BC #### [facility] [address] [place] [address] Dr. Allison Neely WBC 5.6 103/ul Normal 4.0-11.0 [facility] Comment on above: Performed By: #### C BC #### [facility] [address] [place] [address] Dr. Allison Neely PROF 14(COMP METB)on 023 Albumin [Mass/Vol] 4.0 g/dL Normal 3.4-5.0 [facility] Comment on above: Performed By: #### C MP #### [facility] [address] [place] [address] Dr. Allison Neely Albumin/Globulin [Mass ratio] 1.3 {ratio} Normal [facility] Comment on above: Performed By: #### C MP #### [facility] [address] [address] [address] Allison Neely ALP [Catalytic activity/Vol] 103 U/L Normal 46-116 [facility] Comment on above: Performed By: #### C MP #### [facility] [address] [address] [address] Allison Neely ALT [Catalytic activity/Vol] 69 U/L Critically high 14-59 [facility] Comment on above: Performed By: #### C MP #### [facility] [address] [address] [address] Allison Neely Anion gap [Moles/Vol] 12.8 mmol/L Normal Th e [facility] Comment on above: Performed By: #### C MP #### [facility] [address] [place] [address] Dr. Allison Neely AST [Catalytic activity/Vol] 30 U/L Normal 15-37 [facility] Comment on above: Performed By: #### C MP #### [facility] [address] [place] [address] Dr. Allison Neely Bilirubin [Mass/Vol] 0.4 mg/dL Normal 0.2-1.0 [facility] Comment on above: Performed By: #### C MP #### [facility] [address] [place] [address] Dr. Allison Neely Calcium [Mass/Vol] 9.3 mg/dL Normal 8.5-10.1 [facility] Comment on above: Performed By: #### C MP #### [facility] [address] [place] [address] Dr. Allison Neely Chloride [Moles/Vol] 101 mmol/L Normal 98-107 [facility] Comment on above: Performed By: #### C MP #### [facility] [address] [address] [address] Allison Neely CO2 [Moles/Vol] 29.2 mmol/L Normal 21.0-32.0 [facility] Comment on above: Performed By: #### C MP #### [facility] [address] [address] [address] Allison Neely Creatinine [Mass/Vol] 0.99 mg/dL Normal 0.55-1.02 [facility] Comment on above: Performed By: #### C MP #### [facility] [address] [place] [address] Dr. Allison Neely EGFR-AF PAPUA NEW GUINEAN >60 Normal >=60 [facility] Comment on above: Performed By: #### C MP #### [facility] [address] [address] [address] Allison Neely EGFR-NON AF PAPUA [place] GUINEAN 58 mL/min/1.73m2 Critically low >=60 [facility] Comment on above: Performed By: #### C MP #### [facility] [address] [place] [address] Dr. Allison Neely Globulin (S) [Mass/Vol] 3.0 g/dL Normal [facility] Comment on above: Performed By: #### C MP #### [facility] [address] [place] [address] Dr. Allison Neely Glucose [Mass/Vol] 157 mg/dL Critically high 74-106 [facility] Comment on above: Performed By: #### C MP #### [facility] [address] [place] [address] Dr. Allison Neely Potassium [Moles/Vol] 4.0 mmol/L Normal 3.5-5.1 [facility] Comment on above: Performed By: #### C MP #### [facility] [address] [address] [address] Allison Neely Protein [Mass/Vol] 7.0 g/dL Normal 6.4-8.2 [facility] Comment on above: Performed By: #### C MP #### [facility] [address] [place] [address] Dr. Allison Neely Sodium [Moles/Vol] 139 mmol/L Normal 136-145 [facility] Comment on above: Performed By: #### C MP #### [facility] [address] [place] [address] Dr. Allison Neely Urea nitrogen [Mass/Vol] 26.0 mg/dL Critically high 7.0-18 .0 [facility] Comment on above: Performed By: #### C MP #### [facility] [address] [place] [address] Dr. Allison Neely Urea nitrogen/Creatinine [Mass ratio] 26.3 mg/mg Normal [facility] Comment on above: Performed By: #### C MP #### [facility] [address] [place] [address] Dr. Allison Neely ANTICARDIOLIPIN AB (SELINA) IGG on 12-26-2021 Anticardiolipin Ab,IgG,Qn <9 Normal 0-14 [facility] Comment on above: Result Comment: Nega tive: <15 Indeterminate: 15 - 20 Low-Med Positive: >20 - 80 High Positive: >80 Performed By: #### C ARDLIP #### [facility] [address] [place] [address] Dr. Allison Neely PAP ACOG PANEL 2: 30 to 65on 08-29-2021 . . Normal [facility] Comment on above: Result Comment: Perf ormed at: WB Performed By: #### [id number] #### [facility] [address] [place] [address] Dr. Allison Neely Age Gdln ACOG Testing 30-65 Normal [facility] Comment on above: Performed By: #### [id number] #### [facility] [address] [place] [address] Dr. Allison Neely DIAGNOSIS: Comment Normal [facility] Comment on above: Result Comment: NEGA TIVE FOR INTRAEPITHELIAL LESION OR MALIGNANCY. CELLULAR CHANGES ASSOCIATED WITH ATROPHY ARE PRESENT. Performed at: WB Performed By: #### [id number] #### [facility] [address] [place] [address] Dr. Allison Neely HPV Aptima Negative Normal Negative [facility] Comment on above: Result Comment: This nucleic acid amplification test detects fourteen high-risk HPV types (16,18,31,33,35,39,45,51,52,56,58,59,66,68) without differentiation. Performed at: =G Performed By: #### [id number] #### [facility] [address] [place] [address] Dr. Allison Neely Methodology: Comment Normal [facility] Comment on above: Result Comment: This liquid based ThinPrep(R) pap test was screened with the use of an image guided system. Performed at: WB Performed By: #### [id number] #### [facility] [address] [place] [address] Dr. Allison Neely Note: Comment Normal [facility] Comment on above: Result Comment: The Pap smear is a screening test designed to aid in the detection of premalignant and malignant conditions of the uterine cervix. It is not a diagnostic procedure and should not be used as the sole means of detecting cervical cancer. Both false-positive and false-negative reports do occur. . Performed at: WB Performed By: #### [id number] #### [facility] [address] [place] [address] Dr. Allison Neely Performed by: Comment Normal [facility] Comment on above: Result Comment: Nuno Solis, Turntable Man (ASCP) Performed at: WB Performed By: #### [id number] #### [facility] [address] [place] [address] Dr. Allison Neely Specimen adequacy: Comment Normal [facility] Comment on above: Result Comment: Sati sfactory for evaluation. Endocervical component may not be distinguished in cases of atrophy. Performed at: WB Performed By: #### [id number] #### [facility] [address] [place] [address] Dr. Allison Neely Activated partial thrombopla stin time (aPTT) in platelet poor plasma by coagulation aOrdered By: Anali Card on 08-26-2021 aPTT Coag (PPP) [Time] 33.9 s 25.1-36.5 [facility] Albumin [Mass/volume] in Ser um or PlasmaOrdered By: Anali Card on 08-26-2021 Albumin [Mass/Vol] 4.0 g/dL [facility] Albumin/Protein.total in 24 hour Urine by ElectrophoresisOrdered By: Anali Card on 08-26-2021 Albumin Elph (24H U) [Mass fraction] 22.6 % [facility] Automated erythrocytes count in urine sediment (number/area)Ordered By: Anali Card on 08-26-2021 RBC Auto (Urine sed) [#/Area] 0-1 [HPF] [facility] Automated leukocytes count i n urine sediment (number/area)Ordered By: Anali Card on 08-26-2021 WBC Auto (Urine sed) [#/Area] 0-1 [HPF] [facility] Basophils Auto (Bld) [#/Vol] Ordered By: Anali Card on 08-26-2021 Basophils (Bld) [#/Vol] 0.0 10*3/uL 0.0-0.2 [facility] Basophils/100 WBC Auto (Bld) Ordered By: Anali Card on 08-26-2021 Basophils/100 WBC (Bld) 0.8 % [facility] Bilirubin Test strip Ql (U)O rdered By: Anali Card on 08-26-2021 Bilirubin Ql (U) Negative Negative [facility] Blood hemoglobin measurement (mass/volume)Ordered By: Anali Card on 08-26-2021 Hemoglobin (Bld) [Mass/Vol] 13.5 g/dL 11.8-15.4 [facility] Blood leukocytes automated c ount (number/volume)Ordered By: Anali Card on 08-26-2021 WBC (Bld) [#/Vol] 3.3 10*3/uL 4.5-11.0 [facility] Body fluid albumin measureme nt (mass/volume)Ordered By: Anali Card on 08-26-2021 Albumin (Body fld) [Mass/Vol] 4.3 g/dL 3.2-5.5 [facility] Color Auto (U)Ordered By: Venkat Card on 08-26-2021 Color (U) Yellow Yellow [facility] Creatine kinase [Enzymatic a ctivity/volume] in Serum or PlasmaOrdered By: Anali Card on 08-26-2021 CK [Catalytic activity/Vol] 137 U/L 22-269 [facility] Creatinine and Glomerular fi ltration rate.predicted panel (S/P/Bld)Ordered By: Anali Card on 08-26-2021 Creatinine [Mass/Vol] 0.91 mg/dL 0.44-1.03 Fir [facility] Dilute Morgan's viper venom timeOrdered By: Anali Card on 08-26-2021 dRVVT Coag (PPP) [Time] 39.0 s [facility] Eosinophils Auto (Bld) [#/Vo l]Ordered By: Anali Card on 08-26-2021 Eosinophils (Bld) [#/Vol] 0.1 10*3/uL 0.0-0.45 [facility] Eosinophils/100 WBC Auto (Bl d)Ordered By: Anali Card on 08-26-2021 Eosinophils/100 WBC (Bld) 4.2 % [facility] Erythrocyte distribution wid th Auto (RBC) [Ratio]Ordered By: Anali Card on 08-26-2021 Erythrocyte distribution width (RBC) [Ratio] 13.6 % 11.9-15.3 [facility] Erythrocyte sedimentation ra te by Photometric methodOrdered By: Anali Card on 08-26-2021 ESR Photometric method (Bld) [Velocity] 9 mm/hr 0-29 [facility] Estimated glomerular filtrat ion rate (GFR) non- AmericanOrdered By: Anali Card on 08-26-2021 GFR/1.73 sq M.predicted among non-blacks MDRD (S/P/Bld) [Vol rate/Area] > 60 mL/Min [facility] Gamma globulin/Protein.total in 24 hour Urine by ElectrophoresisOrdered By: Anali Card on 08-26-2021 Gamma globulin Elph (24H U) [Mass fraction] 16.7 % [facility] Globulin Calc (S) [Mass/Vol] Ordered By: Anali Card 08-26-2021 Globulin (S) [Mass/Vol] 2.4 g/dL [facility] Hematocrit Auto (Bld) [Volum e fraction]Ordered By: Anali Card 08-26-2021 Hematocrit (Bld) [Volume fraction] 39.9 % 34.0-46.4 [facility] Hepatitis B virus surface Ag [Presence] in Serum or Plasma by ImmunoassayOrdered By: Anali Card on 08-26-2021 HBV surface Ag IA Ql Negative Negative [facility] Hepatitis C virus RNA [Prese nce] in Serum or Plasma by MALIKA with probe detectionOrdered By: Anali Card on 08-26-2021 HCV RNA MALIKA+probe Ql N/A [facility] IgA [Mass/volume] in Serum o r PlasmaOrdered By: Anali Card on 08-26-2021 IgA [Mass/Vol] 103 mg/dL [facility] IgG [Mass/volume] in Serum o r PlasmaOrdered By: Anali Card on 08-26-2021 IgG [Mass/Vol] 617 mg/dL [facility] IgM [Mass/volume] in Serum o r PlasmaOrdered By: Anali Card on 08-26-2021 IgM [Mass/Vol] 226 mg/dL [facility] Comment on above: Performed at: - [facility] [place] [id number] Hearing Screener: Prakash Ballesteros PhD, Phone: [phone] Immunofixation for UrineOrde red By: Anali Card on 08-26-2021 Interpretation Immunofixation (U) [Interp] See comment [facility] Comment on above: No monoclonality det ected. Performed at: [facility] [address] [id number] Hearing Screener: Prakash Ballesteros PhD, Phone: [phone] Ketones Auto test strip (U) [Mass/Vol]Ordered By: Anali Card on 08-26-2021 Ketones (U) [Mass/Vol] Negative Negative [facility] Laboratory - CoagulationOrde red By: Anali Card on 08-26-2021 PT Coag (PPP) [Time] 11.1 s 9.0-12.9 [facility] Laboratory - Hematology and Cell countsOrdered By: Anali Card on 08-26-2021 Nucleated RBC/100 WBC (Bld) [Ratio] 0.1 % 0-0.5 [facility] Laboratory - UrinalysisOrder ed By: Anali Card on 08-26-2021 Hyaline casts LM Ql (Urine sed) 0-8 [LPF] [facility] Lupus anticoagulant [Interpr etation] in Platelet poor plasmaOrdered By: Anali Card on 08-26-2021 Lupus anticoagulant (PPP) [Interp] Comment: [facility] Comment on above: No lupus anticoagula nt was detected. Performed at: - [facility] [id number] Hearing Screener: Amanda Olmedo MD, Phone: [phone] Lymphocytes Auto (Bld) [#/Vo l]Ordered By: Anali Card on 08-26-2021 Lymphocytes (Bld) [#/Vol] 1.2 10*3/uL 1.00-4.8 [facility] Lymphocytes/100 WBC Auto (Bl d)Ordered By: Anali Card on 08-26-2021 Lymphocytes/100 WBC (Bld) 37.9 % [facility] MCH Auto (RBC) [Entitic mass ]Ordered By: Anali Card on 08-26-2021 MCH (RBC) [Entitic mass] 30.7 pg 24.7-34.3 [facility] MCHC Auto (RBC) [Mass/Vol]Or dered By: Anali Card on 08-26-2021 MCHC (RBC) [Mass/Vol] 33.8 g/dL 32.0-35.0 [facility] MCV Auto (RBC) [Entitic vol] Ordered By: Anali Card on 08-26-2021 MCV (RBC) [Entitic vol] 90.6 fL 80-100 [facility] Monocytes Auto (Bld) [#/Vol] Ordered By: Anali Card on 08-26-2021 Monocytes (Bld) [#/Vol] 0.3 10*3/uL 0.0-0.8 [facility] Monocytes/100 WBC Auto (Bld) Ordered By: Anali Card on 08-26-2021 Monocytes/100 WBC (Bld) 8.5 % [facility] Neutrophils Auto (Bld) [#/Vo l]Ordered By: Anali Card on 08-26-2021 Neutrophils (Bld) [#/Vol] 1.6 10*3/uL 1.8-7.7 [facility] Neutrophils/100 WBC Auto (Bl d)Ordered By: Anali Card on 08-26-2021 Neutrophils/100 WBC (Bld) 48.6 % [facility] Nitrite Test strip Ql (U)Ord ered By: Anali Card on 08-26-2021 Nitrite Ql (U) Negative Negative [facility] No Panel InformationOrdered By: Anali Card on 08-26-2021 Estimated GFR () > 60 mL/Min [facility] Comment on above: GFR estimated refere nce range: According to KDOQI guidelines, <60 ml/min/1.73m2 is sufficient to diagnose a patient with chronic kidney disease. Hepatitis B Core Total Antibody Negative Negative [facility] Comment on above: Performed at: [facility] [facility] [address] [id number] Hearing Screener: Prakash Ballesteros PhD, Phone: [phone] Hepatitis C RNA Comment N/A [facility] Creatinine Clearance (Chem N/A [facility] Protein Electrophoresis M-Shawn Not observed g/dL Not Observed [facility] Protein Electrophoresis Note See comment [facility] Comment on above: Protein electrophore sis scan will follow via computer, mail, or specialized language instructor delivery. Serum Immunofixation See comment [facility] Comment on above: No monoclonality det ected. Urine Random Prot Electrophor Note See comment [facility] Comment on above: Protein electrophore sis scan will follow via computer, mail, or specialized language instructor delivery. Performed at: [facility] [address] [id number] Hearing Screener: Prakash Ballesteros PhD, Phone: [phone] Platelet mean volume Auto (B ld) [Entitic vol]Ordered By: Anali Card on 08-26-2021 Platelet mean volume (Bld) [Entitic vol] 9.9 fL 6.3-10.7 [facility] Platelet poor plasma interna tional normalized ratio (INR) by coagulation assay (relatOrdered By: Anali Card on 08-26-2021 INR Coag (PPP) [Relative time] 1.0 {INR} [facility] Comment on above: INR Therapeutic Rang e [...] actual/normal Coag (PPP) [Relative time] 35.7 sec [facility] Platelets Auto (Bld) [#/Vol] Ordered By: Anali Card on 08-26-2021 Platelets (Bld) [#/Vol] 243 10*3/uL 150-450 [facility] Protein Auto test strip (U) [Mass/Vol]Ordered By: Anali Card on 08-26-2021 Protein (U) [Mass/Vol] Negative Negative [facility] Protein [Mass/volume] in Ser um or PlasmaOrdered By: Anali Card on 08-26-2021 Protein [Mass/Vol] 6.7 g/dL 6.1-7.9 [facility] Protein [Mass/Vol] 6.5 g/dL [facility] Protein [Mass/volume] in Uri neOrdered By: Anali Card on 08-26-2021 Protein (U) [Mass/Vol] 9.0 mg/dL Not Estab. [facility] Protein.monoclonal/Protein.t otal in 24 hour Urine by ElectrophoresisOrdered By: Anali Card on 08-26-2021 Protein.monoclonal Elph (24H U) [Mass fraction] Not observed % Not Observed [facility] RBC Auto (Bld) [#/Vol]Ordere d By: Anali Card on 08-26-2021 RBC (Bld) [#/Vol] 4.40 10*6/uL 3.60-5.00 [facility] Reagin Ab [Presence] in Seru m by RPROrdered By: Anali Card on 08-26-2021 Reagin Ab RPR Ql (S) Non-Reactive Non Reactive [facility] Comment on above: Performed at: [facility] [place] [address] Hearing Screener: Prakash Ballesteros PhD, Phone: [phone] Serum angiotensin converting enzyme (MARC) measurementOrdered By: Anali Card on 08-26-2021 Angiotensin converting enzyme [Catalytic activity/Vol] 33 U/L [facility] Comment on above: Performed at: [facility] [address] [id number] Hearing Screener: Prakash Ballesteros PhD, Phone: [phone] Serum globulin measurement ( mass/volume)Ordered By: Anali Card on 08-26-2021 Globulin (S) [Mass/Vol] 2.5 g/dL [facility] Serum hepatitis B virus surf marc antibody detectionOrdered By: Anali Card on 08-26-2021 HBV surface Ab Ql (S) Reactive [facility] Comment on above: Non Reactive: Incons istent with immunity, less than 10 mIU/mL Reactive: Consistent with immunity, greater than 9.9 mIU/mL Serum or plasma C reactive p rotein measurement (mass/volume)Ordered By: Anali Card on 08-26-2021 CRP [Mass/Vol] 0.5 mg/dL 0.0-1.0 [facility] Serum or plasma alanine shell otransferase measurement without P-5'-P (enzymatic activiOrdered By: Anali Card on 08-26-2021 ALT No additional P-5'-P [Catalytic activity/Vol] 37 U/L 10-60 [facility] Serum or plasma albumin/glob ulin mass ratioOrdered By: Anali Card on 08-26-2021 Albumin/Globulin [Mass ratio] 1.8 {ratio} [facility] Albumin/Globulin [Mass ratio] 1.6 {ratio} [facility] Serum or plasma alkaline kiesha sphatase measurement (enzymatic activity/volume)Ordered By: Anali Card on 08-26-2021 ALP [Catalytic activity/Vol] 41 U/L 32-92 [facility] Serum or plasma alpha 1 glob ulin measurement by electrophoresis (mass/volume)Ordered By: Anali Card on 08-26-2021 Alpha 1 globulin Elph [Mass/Vol] 0.2 g/dL [facility] Serum or plasma alpha 2 glob ulin measurement by electrophoresis (mass/volume)Ordered By: Anali Card on 08-26-2021 Alpha 2 globulin Elph [Mass/Vol] 0.6 g/dL [facility] Serum or plasma aspartate am inotransferase measurement (enzymatic activity/volume)Ordered By: Anali Card on 08-26-2021 AST [Catalytic activity/Vol] 26 U/L 10-42 [facility] Serum or plasma beta globuli n measurement by electrophoresis (mass/volume)Ordered By: Anali Card on 08-26-2021 Beta globulin Elph [Mass/Vol] 1.0 g/dL [facility] Serum or plasma calcium lenka urement (mass/volume)Ordered By: Anali Card on 08-26-2021 Calcium [Mass/Vol] 9.6 mg/dL 8.2-10.2 [facility] Serum or plasma chloride bob surement (moles/volume)Ordered By: Anali Card on 08-26-2021 Chloride [Moles/Vol] 105 mmol/L 95-114 [facility] Serum or plasma gamma globul in measurement by electrophoresis (mass/volume)Ordered By: Anali Card on 08-26-2021 Gamma globulin Elph [Mass/Vol] 0.7 g/dL [facility] Serum or plasma glucose lenka urement (mass/volume)Ordered By: Anali Card on 08-26-2021 Glucose [Mass/Vol] 108 mg/dL 70-100 [facility] Comment on above: ADA recommended refe rence [...] 08-26-2021 HCV Ab IA Ql See comment [facility] Comment on above: Negative Not infected with HCV, unless recent infection is suspected or other evidence exists to indicate HCV infection. Effective September 02, 2021 HCV Antibody reflex to MALIKA will be made non-orderable. This will affect any Custom Profile that includes 641810 HCV Antibody reflex to MALIKA. [employer] offers order code [id number] HCV Antibody RFX to Quant PCR as an alternative. Performed at: [facility] [id number] Hearing Screener: Prakash Ballesteros PhD, Phone: [phone] Serum or plasma hepatitis C virus antibody signal/cutoff ratio by immunoassay (relatiOrdered By: Anali Card on 08-26-2021 HCV Ab Signal/Cutoff IA [Rel units/Vol] <0.1 s/co ratio [facility] Serum or plasma potassium me asurement (moles/volume)Ordered By: Anali Card on 08-26-2021 Potassium [Moles/Vol] 4.5 mmol/L 3.5-5.1 [facility] Serum or plasma sodium measu rement (moles/volume)Ordered By: Anali Card on 08-26-2021 Sodium [Moles/Vol] 142 mmol/L 136-146 [facility] Serum or plasma thyroglobuli n antibody assay (units/volume)Ordered By: Anali Card on 08-26-2021 Thyroglobulin Ab Qn [IU]/mL [facility] Comment on above: Thyroglobulin Antibo dy measured by [employer] Performed at: [employer] [id number] Hearing Screener: Prakash Ballesteros PhD, Phone: [phone] Serum or plasma thyroperoxid ase antibody assay (units/volume)Ordered By: Anali Card on 08-26-2021 TPO Ab Qn 12 [IU]/mL [facility] Comment on above: Performed at: [address] [id number] Hearing Screener: Prakash Ballesteros PhD, Phone: [phone] Serum or plasma total biliru bin measurement (mass/volume)Ordered By: Anali Card on 08-26-2021 Bilirubin [Mass/Vol] 0.5 mg/dL 0.3-1.2 [facility] Serum or plasma total carbon dioxide measurement (moles/volume)Ordered By: Anali Card on 08-26-2021 CO2 [Moles/Vol] 26.9 mmol/L 22.0-30.0 [facility] Serum or plasma urea nitroge n measurement (mass/volume)Ordered By: Anali Card on 08-26-2021 Urea nitrogen [Mass/Vol] 17 mg/dL 9-23 [facility] Specific gravity Auto test s trip (U) [Rel density]Ordered By: Anali Card on 08-26-2021 Specific gravity (U) [Rel density] 1.017 1.001-1.03 0 [facility] Squamous epithelial cells de tection in urine sediment by light microscopyOrdered By: Anali Card on 08-26-2021 Epithelial cells.squamous LM Ql (Urine sed) None seen [HPF] [facility] TSH DL <= 0.005 mIU/L QnOrde red By: Anali Card on 08-26-2021 TSH Qn 1.43 m[IU]/L 0.45-5.33 [facility] TT plasOrdered By: Anali hall on 08-26-2021 Thrombin time Coag (PPP) [Time] 20.6 sec [facility] Thyroxine (T4) free [Mass/vo lume] in Serum or PlasmaOrdered By: Anali Card on 08-26-2021 Free T4 [Mass/Vol] 0.77 ng/dL 0.61-1.12 [facility] Urine alpha 1 globulin/total protein by electrophoresisOrdered By: Anali Card on 08-26-2021 Alpha 1 globulin Elph (U) [Mass fraction] 7.7 % [facility] Urine alpha 2 globulin/total protein ratio by electrophoresisOrdered By: Anali Card on 08-26-2021 Alpha 2 globulin Elph (U) [Mass fraction] 15.7 % [facility] Urine bacteria detection by automated methodOrdered By: Anali Card on 08-26-2021 Bacteria Auto Ql (U) None seen None Seen [facility] Urine beta globulin measurem ent by electrophoresis (mass/volume)Ordered By: Anali Card on 08-26-2021 Beta globulin Elph (U) [Mass/Vol] 37.4 % [facility] Urine clarity by refractomet ry automatedOrdered By: Anali Card on 08-26-2021 Clarity Refractometry automated (U) Clear Clear [facility] Urine glucose measurement by automated test strip (mass/volume)Ordered By: Anali Card on 08-26-2021 Glucose Auto test strip (U) [Mass/Vol] Normal mg/dL Normal [facility] Urine hemoglobin detection b y automated test stripOrdered By: Anali Card on 08-26-2021 Hemoglobin Auto test strip Ql (U) Negative Negative [facility] Urine leukocyte esterase det ection by automated test stripOrdered By: Anali Card on 08-26-2021 Leukocyte esterase Auto test strip Ql (U) Negative Negative [facility] Urobilinogen Auto test strip (U) [Mass/Vol]Ordered By: Anali Card on 08-26-2021 Urobilinogen (U) [Mass/Vol] Normal mg/dL Normal [facility] aPTT.lupus sensitive (LA scr een)Ordered By: Anali Card on 08-26-2021 aPTT.lupus sensitive Coag (PPP) [Time] 35.3 sec [facility] aPTT.lupus sensitive/aPTT.scotty pus sensitive W excess phospholipid (screen to confirm raOrdered By: Anali Card on 08-26-2021 aPTT.lupus sensitive/aPTT.lupus sensitive W excess phospholipid Coag (PPP) [Ratio] 1.04 Ratio [facility] pH Auto test strip (U)Ordere d By: Anali Card on 08-26-2021 pH (U) 6.0 [pH] 5.0-9.0 [facility] Encounters Encounter Date Encounter Type Care Provider Facility Start: 05-25-2023 End: 05-25-2023 ambulatory BILL SOTELO Not Available Start: 05-25-2023 End: 05-25-2023 Departed Referred Bill Sotelo Work Phone: [facility] Start: 02-12-2023 End: 02-12-2023 ambulatory Anali Card Facility:[facility] Start: 02-12-2023 End: 02-12-2023 ambulatory MD Sacha Monroy Work Phone: [facility] Work Phone: Start: 02-12-2023 End: 02-12-2023 Patient encounter procedure MD Sacha Monroy Work Phone: [facility]Lab [address] Work Phone: Start: 06-06-2022 End: 06-07-[address] ANALI CARD Facility:[facility] Start: 12-25-2021 End: 12-26-[address] ANLAI CARD Facility:[facility] Start: 09-05-2021 End: 09-05-2021 Patient encounter procedure MD Sacha Monroy Work Phone: [facility]-XRay [address] Start: 08-26-2021 End: 08-26-2021 Patient encounter procedure MD Sacah Monroy Work Phone: [facility] [address] Start: 08-22-2021 End: 08-22-[address] LUCERO KUHN Facility:[facility] Procedures Date Procedure Procedure Detail Performing Clinician Start: 09-05-2021 Plain X-ray of bilat eral wrists MD Sacha Monroy Work Phone: Start: 09-05-2021 Plain X-ray of bilat eral hands MD Sacha Monroy Work Phone: Plan of Treatment Date Care Activity Detail Author 24 hour urine measurement [facility] Work Phone: Albumin [Mass/volume] in Serum or Plasma [facility] Work Phone: Albumin/Globulin ratio [facility] Work Phone: Angiotensin converti ng enzyme [Enzymatic activity/volume] in Serum or Plasma [facility] Work Phone: aPTT.lupus sensitive (LA screen) [facility] Work Phone: aPTT.lupus sensitive W excess phospholipid actual/Normal (normalized LA confirm) [facility] Work Phone: aPTT.lupus sensitive /aPTT.lupus sensitive W excess phospholipid (screen to confirm ra [facility] tr Work Phone: dRVVT (LA screen) [facility] Work Phone: Electrophoresis: [id number] [facility] Work Phone: Electrophoresis: [id number] [facility] Work Phone: Electrophoresis: beta-globulin [facility] Work Phone: Electrophoresis: gamma globulin [facility] Work Phone: Globulin [Mass/volume] in Serum [facility] Work Phone: Hepatitis B core antibody measurement [facility] Work Phone: Hepatitis B virus byers rface Ab [Presence] in Serum [facility] Work Phone: Hepatitis B virus byers rface Ag [Presence] in Serum or Plasma by Immunoassay [facility] Work Phone: Hepatitis C virus Ab Signal/Cutoff in Serum or Plasma by Immunoassay [facility] Work Phone: Hepatitis C virus RN A [Presence] in Serum or Plasma by MALIKA with probe detection [facility] Work Phone: IgA [Mass/volume] in Serum or Plasma [facility] Work Phone: IgG [Mass/volume] in Serum or Plasma [facility] Work Phone: IgM [Mass/volume] in Serum or Plasma [facility] Work Phone: Immunofixation for Urine Fir [facility] Work Phone: Lupus anticoagulant [Interpretation] in Platelet poor plasma [facility] Work Phone: Measurement of monoc lonal protein concentration [facility] Work Phone: Protein [Mass/volume] in Serum or Plasma [facility] Work Phone: Protein [Mass/volume] in Urine [facility] Work Phone: Reagin Ab [Presence] in Serum by RPR [facility] Work Phone: Serum immunofixation [facility] Work Phone: Thrombin time [facility] Work Phone: Thyroglobulin Ab [Un its/volume] in Serum or Plasma [facility] Work Phone: Thyroperoxidase Ab [ Units/volume] in Serum or Plasma [facility] Work Phone: Immunizations Immunization Date Immunization Notes Care Provider [facility] 05-30-2020 COVID-19 [id number] (Aronldo) MD Sacha Monroy Work Phone: [facility] 05-02-2020 COVID-19 [id number] (Arnoldo) MD Sacha Monroy Work Phone: [facility] Payers Date Payer Category Payer Self-pay [id number] 1965 Unknown [id number] 1965 Unknown [id number] 1965 Unknown [id number] 1965 Unknown [id number] [id number] 1961 Unknown [id number] Unknown [employer] [id number] Unknown [id number] [id number] Unknown [id number] [id number] Social History Date Type Detail Facility Start: 09-26-2020 End: 09-26-2020 Tobacco smoking status NHIS Never smoked tobacco (finding) [facility] Start: 1965 Sex Assigned At Female [facility] Evaluation note Note Date & Type Note Facility Evaluation note No assessment information availa ble [facility] Work Phone: Family History No [...] DATE CREATED AUTHOR AUTHOR'S ORGANIZ ATION 05/26/2023 [facility] EPIC DATE CREATED AUTHOR AUTHOR'S ORGANIZ ATION 06/23/2023 [facility] FOR RECORDS PERTAINING TO PATIENTS WHO [...] BE BASED ON THE PRIMARY CLINICAL RECORDS. [employer] provides no warranty or guarantee of the accuracy or completeness of information in this document.
== END 2024-02-09 08:13 | disposition home or self-care (01) ==
LOC: RAD 08:16
PROVIDERS: PCP Family Medicine; Visit Provider Family Medicine
DX: M25.551 Pain in right hip (principal)
CPT/HCPCS: 73502

== ENCOUNTER 2024-02-17 13:01 | Emergency (ER) | payer BC, OTHER, SELFPAY ==
[2024-02-17 13:06] VITALS: BP 156/98; PULSE 90; TEMP 36.7; O2SAT 98; BMI 32.5
[2024-02-17] MEDS: ADACEL DIPH,PERTUSS(ACELL),TET VAC/PF 0.5 ML ADULT SYRINGE IM (13:24)
--- NOTE | 2024-02-17 13:28 | ED_ITS ---
HPI HPI - General Adult General Chief complaint: Needle Stick Stated complaint: NEEDLE STICK [facility] Time Seen by Provider: 02/17/24 13:08 Source: patient History of Present Illness HPI narrative: Patient is 58-year-old female presents to the emergency department after a needlestick that occurred accidentally at work. 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 She sustained a puncture wound to the left index finger. No other associated injuries. Unknown last tetanus. Related Data Allergies Allergy/AdvReac Type Severity Reaction Status Date / Time No Known Drug Allergies Allergy Verified 02/17/24 13:06 Opioid HPI Opioid Management Most Recent Opioid Data: No Data to Display Review of Systems ROS Constitutional Denies: fever or chills Ears, nose, mouth, and throat Denies: throat pain or nose bleeds Respiratory Denies: shortness of breath Gastrointestinal Denies: nausea or vomiting Integumentary/Breast Denies: rash Neurological Denies: numbness in extremities or weakness in extremities Hematologic/Lymphatic Denies: easy bruising or easy bleeding PFSH PFSH Social History Little interest or pleasure in doing things: not at all Feeling down, depressed, or hopeless: not at all Exam Narrative Exam Narrative: Gen.: Awake, alert, in no distress Head: Normocephalic, atraumatic ENT: Moist mucous membranes Respiratory: No respiratory distress Extremities: Moves extremities equally, small puncture wound noted to the fat pad of the left index finger Psych: Normal mood and affect Neuro: No focal neuro deficit Skin: Warm, dry, intact Constitutional Vital Signs, click to edit/add: Last Vital Signs Temp 98.0 F 02/17/24 13:06 Pulse 90 02/17/24 13:06 Resp 18 02/17/24 13:06 BP 156/98 H 02/17/24 13:06 Pulse Ox 98 02/17/24 13:06 O2 Del Method Room Air 02/17/24 13:06 Course Vital Signs Vital signs: Vital Signs Temperature 98.0 F 02/17/24 13:06 Pulse Rate 90 02/17/24 13:06 Respiratory Rate 18 02/17/24 13:06 Blood Pressure 156/98 H 02/17/24 13:06 Pulse Oximetry 98 02/17/24 13:06 Oxygen Delivery Method Room Air 02/17/24 13:06 Temperature 98.0 F 02/17/24 13:06 Pulse Rate 90 02/17/24 13:06 Respiratory Rate 18 02/17/24 13:06 Blood Pressure 156/98 H 02/17/24 13:06 Pulse Oximetry 98 02/17/24 13:06 Oxygen Delivery Method Room Air 02/17/24 13:06 Medical Decision Making MDM Narrative Medical decision making narrative: Needlestick labs ordered, tetanus updated and puncture wound dressed with a Band-Aid. Patient is neurovascularly intact. Follow-up instructions given for repeat labs. Return to the ER if symptoms change or worsen SUPERVISED APC VISIT, PHYSICIAN ATTESTATION: Based on the medical record the care appears appropriate. ? Medical Records Medical records reviewed: Yes I reviewed the patient's medical records Discharge Plan Discharge Chief Complaint: Needle Stick Clinical Impression: Needlestick injury accident Patient Disposition: Home, Self-Care Time of Disposition Decision: 13:26 Condition: Good Print Language: Serbian Instructions: Puncture Wound (ED) Referrals: [facility] [Outside] - 1 week
[2024-02-17 14:09] LABS: Alanine Aminotransferase 175 U/L (14-59); Albumin Level 3.6 g/dL (3.4-5.0); Alkaline Phosphatase 113 U/L (46-116); Aspartate Amino Transferase 68 U/L (15-37); Bilirubin Direct 0.1 mg/dL (0.0-0.2); Bilirubin Total 0.4 mg/dL (0.2-1.0); Globulin 3.5 g/dL; Total Protein 7.1 g/dL (6.4-8.2)
--- OUTSIDE RECORDS SUMMARY | 2024-02-17 14:24 | XMS_ITS | CCD ---
Author Organization [facility] Care Team Providers Care Line Producer Name Role Phone MD Sacha Monroy Primary Care Provider [phone] MD Vishal Card Attending Provider KYAW, DR BRIONES Admitting Unavailable KYAW, DR BRIONES Attending Unavailable IRVING, DR LAFLEUR Primary Care Unavailable KYAW, DR BRIONES Consulting Unavailable KARASIK, DR BARKER Admitting Unavailable KARASIK, DR BARKER Attending Unavailable IRVING, DR LAFLEUR Primary Care Unavailable KARNELIDA, DR BARKER Consulting Unavailable KYAW, DR BRIONES Admitting Unavailable KYAW, DR BRIONES Attending Unavailable IRVING, DR LAFLEUR Primary Care Unavailable KYAW, DR BRIONES Consulting Unavailable MD Sacha Monroy Primary Care Provider [phone] MD Anali Card Attending Provider [phone] BILL SOTELO Attending Unavailable Bill Sotelo Attending Provider Bill Sotelo Attending Unavailable Bill Sotelo Admitting Unavailable Anali Card Attending Unavailable Anali Card Admitting Unavailable Sacha Monroy Primary Care Unavailable Oj GONZALEZ Attending Unavailable Sacha Monroy Referring Unavailable Medications Current Medications Medication Drug Class(es) [...] 06-06-2022 Chronic Other aftercare (1 source) Other retirement (current) drug therapy; Translations: [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 CPT Codes 31518 Specimen: [id number] Received: 05/26/23 Status: MARIELA Mcgrath Num: [id number] Spec Type: Surgical Subm Dr: Bill Sotelo Tissues: A Cervical Polyp (CERVICAL POLYP) Procedures: HE/2, Gross/Micro L4 Patient: AlinJuan Carlos [id number] (Continued) Signed (signature on file) Danilo-Naif Neely MD 05/27/23 1009 Normal [facility] Alanine aminotransferase [En zymatic activity/volume] in Serum or PlasmaOrdered By: Anali Card on 02-12-2023 ALT [Catalytic activity/Vol] 70 U/L High 7-52 [facility] Comment on above: Performed By: #### C MP, CBC #### [facility] [address] [place] [address] Albumin [Mass/volume] in Ser um or Plasma by Bromocresol green (BCG) dye binding methoOrdered By: Anali Card on 02-12-2023 Albumin BCG dye [Mass/Vol] 4.3 g/dL 3.5-5.7 [facility] Alkaline phosphatase [Enzyma tic activity/volume] in Serum or PlasmaOrdered By: Anali Card on 02-12-2023 ALP [Catalytic activity/Vol] 80 U/L Normal 34-104 [facility] Comment on above: Result Comment: PERF ORMED BY: [place] [address] PATHOLOGIST SENIOR SITE MANAGER OLGA LIDIA CORONA M.D. Performed By: #### C MP, CBC #### [facility] [address] Aspartate aminotransferase [ Enzymatic activity/volume] in Serum or PlasmaOrdered By: Anali Card on 02-12-2023 AST [Catalytic activity/Vol] 36 U/L Normal 13-39 [facility] Comment on above: Performed By: #### C MP, CBC #### [facility] [address] [place] [address] [place] Automated basophil %Ordered By: Anali Card on 02-12-2023 Basophils/100 WBC (Bld) 0.4 % Normal . [facility] Comment on above: Performed By: #### C MP, CBC #### [address] Automated basophil countOrde red By: Anali Card on 02-12-2023 Basophils (Bld) [#/Vol] 0.0 10*3/uL Normal 0.0-0.2 [facility] Comment on above: Result Comment: PERF ORMED BY: [place] [address] PATHOLOGIST SENIOR SITE MANAGER OLGA LIDIA CORONA M.D. Performed By: #### C MP, CBC #### [address] Automated blood monocyte cou ntOrdered By: Anali Kyaw on 02-12-2023 Monocytes (Bld) [#/Vol] 0.4 10*3/uL Normal 0.0-0.8 [facility] Comment on above: Performed By: #### C MP, CBC #### [address] Automated eosinophil %Ordere d By: Anali Lalrow on 02-12-2023 Eosinophils/100 WBC (Bld) 2.1 % Normal . [facility] Comment on above: Performed By: #### C MP, CBC #### [address] Automated eosinophil countOr dered By: Anali Lalrow on 02-12-2023 Eosinophils (Bld) [#/Vol] 0.1 10*3/uL Normal 0.0-0.45 [facility] Comment on above: Performed By: #### C MP, CBC #### [address] Automated monocyte %Ordered By: Anali Kyaw on 02-12-2023 Monocytes/100 WBC (Bld) 8.2 % Normal . F [facility] Comment on above: Performed By: #### C MP, CBC #### [address] Automated neutrophil %Ordere d By: Anali Card on 02-12-2023 Neutrophils/100 WBC (Bld) 58.3 % Normal . [facility] Comment on above: Performed By: #### C MP, CBC #### [address] Bilirubin.total [Mass/volume ] in Serum or PlasmaOrdered By: Anali Card on 02-12-2023 Bilirubin [Mass/Vol] 0.5 mg/dL Normal 0.3-1.0 [facility] Comment on above: Performed By: #### C MP, CBC #### [address] Calcium [Mass/volume] in Ser um or PlasmaOrdered By: Anali Lalrow on 02-12-2023 Calcium [Mass/Vol] 9.2 mg/dL Normal 8.6-10.3 [facility] Comment on above: Performed By: #### C MP, CBC #### [address] Carbon dioxide, total [Moles /volume] in Serum or PlasmaOrdered By: Anali Card on 02-12-2023 CO2 [Moles/Vol] 28.6 mmol/L Normal 21.0-31.0 [facility] Comment on above: Performed By: #### C MP, CBC #### [place] [address] [place] Chloride [Moles/volume] in S tex or PlasmaOrdered By: Anali Lalrow on 02-12-2023 Chloride [Moles/Vol] 106 mmol/L Normal 98-107 [facility] Comment on above: Performed By: #### C MP, CBC #### [address] Complete Blood Count Auto Di ffon 02-12-2023 Mean Corpuscular HGB Conc 33.5 g/dL Normal 32.0-35.0 [facility] Comment on above: Performed By: #### C MP, CBC #### [facility] [address] [place] [address] NRBC% 0.1 /100{WBC} Normal 0-0.5 [facility] Comment on above: Performed By: #### C MP, CBC #### [address] Comprehensive Metabolic Pane kim 02-12-2023 Albumin [Mass/Vol] 4.3 g/dL Normal 3.5-5.7 [facility] Comment on above: Performed By: #### C MP, CBC #### [address] GFR/1.73 sq M.predicted MDRD (S/P/Bld) [Vol rate/Area] mL/min/{1.73_m2} Normal [facility] Comment on above: Performed By: #### C MP, CBC #### [address] Creatinine [Mass/volume] in Serum or PlasmaOrdered By: Anali Card on 02-12-2023 Creatinine [Mass/Vol] 0.93 mg/dL Normal 0.60-1.20 [facility] Comment on above: Performed By: #### C MP, CBC #### [address] Erythrocyte distribution wid th [Ratio] by Automated countOrdered By: Anali Card on 02-12-2023 Erythrocyte distribution width (RBC) [Ratio] 14.5 % Normal 11.9-15.3 [facility] Comment on above: Performed By: #### C MP, CBC #### [address] Erythrocytes [#/volume] in B lood by Automated countOrdered By: Anali Card on 02-12-2023 RBC (Bld) [#/Vol] 4.32 10*6/uL Normal 3.60-5.00 [facility] Comment on above: Performed By: #### C MP, CBC #### [address] Glucose [Mass/volume] in Ser um or PlasmaOrdered By: Anali Card on 02-12-2023 Glucose [Mass/Vol] 107 mg/dL High 70-100 [facility] Comment on above: ADA recommended refe rence rangeRandom Glucose Reference Range is dependent on time and content of last meal. Glucose of more than 200 mg/dL in a nonstressed, ambulatory subject supports the diagnosis of Diabetes Mellitus. Result Comment: [place] om Glucose Reference Range is dependent on time and content of last meal. Glucose of more than 200 mg/dL in a nonstressed, ambulatory subject supports the diagnosis of Diabetes Mellitus. ADA recommended reference range Performed By: #### C MP, CBC #### [address] Hematocrit [Volume Fraction] of Blood by Automated countOrdered By: Anali Card on 02-12-2023 Hematocrit (Bld) [Volume fraction] 39.2 % Normal 34.0-46.4 [facility] Comment on above: Performed By: #### C MP, CBC #### [address] Hemoglobin [Mass/volume] in BloodOrdered By: Anali Card on 02-12-2023 Hemoglobin (Bld) [Mass/Vol] 13.1 g/dL Normal 11.8-15.4 [facility] Comment on above: Performed By: #### C MP, CBC #### [address] Leukocytes [#/volume] correc henry for nucleated erythrocytes in Blood by Automated counOrdered By: Anali Card on 02-12-2023 WBC corrected for nucl RBC Auto (Bld) [#/Vol] 4.9 10*3/uL 3.8-11.6 [facility] Leukocytes [#/volume] in Blo od by Automated countOrdered By: Anali Card on 02-12-2023 WBC (Bld) [#/Vol] 4.9 10*3/uL Normal 3.8-11.6 [facility] Comment on above: Performed By: #### C MP, CBC #### [address] Lymphocytes [#/volume] in Bl ood by Automated countOrdered By: Anali Lalrow on 02-12-2023 Lymphocytes (Bld) [#/Vol] 1.5 10*3/uL Normal 1.00-4.8 [facility] Comment on above: Performed By: #### C MP, CBC #### [address] Lymphocytes/100 leukocytes i n Blood by Automated countOrdered By: Anali Lalrow on 02-12-2023 Lymphocytes/100 WBC (Bld) 31.0 % Normal . [facility] Comment on above: Performed By: #### C MP, CBC #### [address] MCH [Entitic mass] by Automa henry countOrdered By: Anali Lalrow on 02-12-2023 MCH (RBC) [Entitic mass] 30.4 pg Normal 24.7-34.3 [facility] Comment on above: Performed By: #### C MP, CBC #### [address] MCHC Auto (RBC) [Mass/Vol]Or dered By: Anali Lalrow on 02-12-2023 MCHC (RBC) [Mass/Vol] 33.5 g/dL 32.0-35.0 [facility] MCV [Entitic volume] by Auto mated countOrdered By: Anali Lalrow on 02-12-2023 MCV (RBC) [Entitic vol] 90.8 fL Normal 80-100 [facility] Comment on above: Performed By: #### C MP, CBC #### [address] Neutrophils [#/volume] in Bl ood by Automated countOrdered By: Anali Lalrow on 02-12-2023 Neutrophils (Bld) [#/Vol] 2.9 10*3/uL Normal 1.8-7.7 [facility] Comment on above: Performed By: #### C MP, CBC #### [address] No Panel InformationOrdered By: Anali Lalrow on 02-12-2023 Estimated GFR (CKD-EPI) > 60.0 mL/Min [facility] Creatinine Clearance (Chem N/A [facility] Nucleated erythrocytes [Pres ence] in Blood by Automated countOrdered By: Anali Lalrow on 02-12-2023 Nucleated RBC Auto Ql (Bld) 0.1 /100{WBC} 0-0.5 [facility] Platelet mean volume [Entiti c volume] in Blood by Automated countOrdered By: Anali Kyaw on 02-12-2023 Platelet mean volume (Bld) [Entitic vol] 9.6 fL Normal 6.3-10.7 [facility] Comment on above: Performed By: #### C MP, CBC #### [address] Platelets [#/volume] in Bloo d by Automated countOrdered By: Anali Card on 02-12-2023 Platelets (Bld) [#/Vol] 202 10*3/uL Normal 150-450 [facility] Comment on above: Performed By: #### C MP, CBC #### [place] [address] [place] Potassium [Moles/volume] in Serum or PlasmaOrdered By: Anali Card on 02-12-2023 Potassium [Moles/Vol] 4.6 mmol/L Normal 3.5-5.1 [facility] Comment on above: Performed By: #### C MP, CBC #### [place] [address] [place] Protein [Mass/volume] in Ser um or PlasmaOrdered By: Anali Card on 02-12-2023 Protein [Mass/Vol] 6.6 g/dL Normal 6.4-8.9 [facility] Comment on above: Performed By: #### C MP, CBC #### [address] Serum globulin measurement b y calculation (mass/volume)Ordered By: Anali Card on 02-12-2023 Globulin (S) [Mass/Vol] 2.3 g/dL Normal [facility] Comment on above: Performed By: #### C MP, CBC #### [address] Serum or plasma albumin/glob ulin mass ratioOrdered By: Anali Kyaw on 02-12-2023 Albumin/Globulin [Mass ratio] 1.9 {ratio} Normal [facility] Comment on above: Performed By: #### C MP, CBC #### [address] Serum or plasma anion gap de terminationOrdered By: Anali Kyaw on 02-12-2023 Anion gap [Moles/Vol] 11.0 mmol/L Normal 6.0-15.0 [facility] Comment on above: Performed By: #### C MP, CBC #### [address] Sodium [Moles/volume] in Ser um or PlasmaOrdered By: Analigardenia Card on 02-12-2023 Sodium [Moles/Vol] 141 mmol/L Normal 136-145 [facility] Comment on above: Performed By: #### C MP, CBC #### [address] Urea nitrogen [Mass/volume] in Serum or PlasmaOrdered By: Anali Kyaw on 02-12-2023 Urea nitrogen [Mass/Vol] 16 mg/dL Normal 7-25 [facility] Comment on above: Performed By: #### C MP, CBC #### [address] ANTICARDIOLIPIN AB (SELINA) IGG on 06-09-2022 Anticardiolipin Ab,IgG,Qn <9 Normal 0-14 [facility] Comment on above: Result Comment: Nega tive: <15 Indeterminate: 15 - 20 Low-Med Positive: >20 - 80 High Positive: >80 Performed By: #### C ARDLIP #### [facility] [address] [address] [address] Allison Neely CBC AUTO DIFFon 06-06-2022 BASO # 0.0 103/ul Normal 0.0-0.1 [facility] Comment on above: Performed By: #### C BC #### [facility] [address] [place] [address] Dr. Allison Neely Basophils/100 WBC (Bld) 0.5 % Normal 0.2-2.0 [facility] Comment on above: Performed By: #### C BC #### [facility] [address] [place] [address] Dr. Allison Neely EO # 0.1 103/ul Normal 0.0-0.7 [facility] Comment on above: Performed By: #### C BC #### [facility] [address] [place] [address] Dr. Allison Neely Eosinophils/100 WBC (Bld) 0.9 % Normal 0.9-7.0 [facility] Comment on above: Performed By: #### C BC #### [facility] [address] [place] [address] Dr. Allison Neely Erythrocyte distribution width (RBC) [Ratio] 13.7 % Normal 11.0-15.0 [facility] Comment on above: Performed By: #### C BC #### [facility] [address] [place] [address] Dr. Allison Neely Hematocrit (Bld) [Volume fraction] 41.8 % Normal 36.0-48.0 [facility] Comment on above: Performed By: #### C BC #### [facility] [address] [place] [address] Dr. Allison Neely Hemoglobin (Bld) [Mass/Vol] 13.0 g/dL Normal 12.0-16.0 [facility] Comment on above: Performed By: #### C BC #### [facility] [address] [place] [address] Dr. Allison Neely IG # 0.01 10e3/ul Normal 0.00-0.03 [facility] Comment on above: Performed By: #### C BC #### [facility] [address] [place] [address] Dr. Allison Neely IG % 0.2 % Normal 0.0-0.5 [facility] Comment on above: Performed By: #### C BC #### [facility] [address] [place] [address] Dr. Allison Neely LYMPH # 1.7 103/ul Normal 1.2-3.8 [facility] Comment on above: Performed By: #### C BC #### [facility] [address] [place] [address] Dr. Allison Neely Lymphocytes/100 WBC (Bld) 30.5 % Normal 20.5-60.0 [facility] Comment on above: Performed By: #### C BC #### [facility] [address] [place] [address] Dr. Allison Neely MANUAL DIFF REQ NO Normal [facility] Comment on above: Performed By: #### C BC #### [facility] [address] [place] [address] Dr. Allison Neely MCH (RBC) [Entitic mass] 29.7 pg Normal 26.7-34.0 [facility] Comment on above: Performed By: #### C BC #### [facility] [address] [place] [address] Dr. Allison Neely MCHC (RBC) [Mass/Vol] 31.1 g/dL Normal 29.9-35.2 [facility] Comment on above: Performed By: #### C BC #### [facility] [address] [place] [address] Dr. Allison Neely MCV (RBC) [Entitic vol] 95.7 fL Normal 81.0-99.0 [facility] Comment on above: Performed By: #### C BC #### [facility] [address] [place] [address] Dr. Allison Neely MONO # 0.3 103/ul Normal 0.3-0.8 [facility] Comment on above: Performed By: #### C BC #### [facility] [address] [place] [address] Dr. Allison Neely Monocytes/100 WBC (Bld) 5.1 % Normal 1.7-12.0 [facility] Comment on above: Performed By: #### C BC #### [facility] [address] [place] [address] Dr. Allison Neely NEUT # 3.5 103/ul Normal 1.4-6.5 [facility] Comment on above: Performed By: #### C BC #### [facility] [address] [place] [address] Dr. Allison Neely Neutrophils/100 WBC (Bld) 62.8 % Normal 43.0-75.0 [facility] Comment on above: Performed By: #### C BC #### [facility] [address] [place] [address] Dr. Allison Neely Platelet mean volume (Bld) [Entitic vol] 12.0 fL Normal 9.5-13.5 [facility] Comment on above: Performed By: #### C BC #### [facility] [address] [place] [address] Dr. Allison Neely PLT 274 103/ul Normal 150-450 [facility] Comment on above: Performed By: #### C BC #### [facility] [address] [place] [address] Dr. Allison Neely RBC 4.37 106/ul Normal 4.20-5.40 [facility] Comment on above: Performed By: #### C BC #### [facility] [address] [place] [address] Dr. Allison Neely WBC 5.6 103/ul Normal 4.0-11.0 [facility] Comment on above: Performed By: #### C BC #### [facility] [address] [place] [address] Dr. Allison Neely PROF 14(COMP METB)on 023 Albumin [Mass/Vol] 4.0 g/dL Normal 3.4-5.0 [facility] Comment on above: Performed By: #### C MP #### [facility] [address] [place] [address] Dr. Allison Neely Albumin/Globulin [Mass ratio] 1.3 {ratio} Normal [facility] Comment on above: Performed By: #### C MP #### [facility] [address] [address] [address] Allison Neely ALP [Catalytic activity/Vol] 103 U/L Normal 46-116 [facility] Comment on above: Performed By: #### C MP #### [facility] [address] [address] [address] Allison Neely ALT [Catalytic activity/Vol] 69 U/L Critically high 14-59 [facility] Comment on above: Performed By: #### C MP #### [facility] [address] [address] [address] Allison Neely Anion gap [Moles/Vol] 12.8 mmol/L Normal [facility] Comment on above: Performed By: #### C MP #### [facility] [address] [place] [address] Dr. Allison Neely AST [Catalytic activity/Vol] 30 U/L Normal 15-37 [facility] Comment on above: Performed By: #### C MP #### [facility] [address] [place] [address] Dr. Allison Neely Bilirubin [Mass/Vol] 0.4 mg/dL Normal 0.2-1.0 [facility] Comment on above: Performed By: #### C MP #### [facility] [address] [place] [address] Dr. Allison Neely Calcium [Mass/Vol] 9.3 mg/dL Normal 8.5-10.1 [facility] Comment on above: Performed By: #### C MP #### [facility] [address] [place] [address] Dr. Allison Neely Chloride [Moles/Vol] 101 mmol/L Normal 98-107 [facility] Comment on above: Performed By: #### C MP #### [facility] [address] [place] [address] Dr. Allison Neely CO2 [Moles/Vol] 29.2 mmol/L Normal 21.0-32.0 [facility] Comment on above: Performed By: #### C MP #### [facility] [address] [address] [address] Allison Neely Creatinine [Mass/Vol] 0.99 mg/dL Normal 0.55-1.02 [facility] Comment on above: Performed By: #### C MP #### [facility] [address] [address] [address] Allison Neely EGFR-AF JAPANESE >60 Normal >=60 [facility] Comment on above: Performed By: #### C MP #### [facility] [address] [address] [address] Allison Neely EGFR-NON AF JAPANESE 58 mL/min/1.73m2 Critically low >=60 [facility] Comment on above: Performed By: #### C MP #### [facility] [address] [place] [address] Dr. Allison Neely Globulin (S) [Mass/Vol] 3.0 g/dL Normal [facility] Comment on above: Performed By: #### C MP #### [facility] [address] [place] [address] Dr. Allison Neely Glucose [Mass/Vol] 157 mg/dL Critically high 74-106 [facility] Comment on above: Performed By: #### C MP #### [facility] [address] [place] [address] Dr. Allison Neely Potassium [Moles/Vol] 4.0 mmol/L Normal 3.5-5.1 [facility] Comment on above: Performed By: #### C MP #### [facility] [address] [place] [address] Dr. Allison Neely Protein [Mass/Vol] 7.0 g/dL Normal 6.4-8.2 [facility] Comment on above: Performed By: #### C MP #### [facility] [address] [place] [address] Dr. Allison Neely Sodium [Moles/Vol] 139 mmol/L Normal 136-145 [facility] Comment on above: Performed By: #### C MP #### [facility] [address] [address] [address] Allison Neely Urea nitrogen [Mass/Vol] 26.0 mg/dL Critically high 7.0-[address] [facility] Comment on above: Performed By: #### C MP #### [facility] [address] [place] [address] Dr. Allison Neely Urea nitrogen/Creatinine [Mass ratio] 26.3 mg/mg Normal [facility] Comment on above: Performed By: #### C MP #### [facility] [address] [place] [address] Dr. Allison Neely ANTICARDIOLIPIN AB (SELINA) IGG on 12-26-2021 Anticardiolipin Ab,IgG,Qn <9 Normal 0-14 [facility] Comment on above: Result Comment: Nega tive: <15 Indeterminate: 15 - 20 Low-Med Positive: >20 - 80 High Positive: >80 Performed By: #### C ARDLIP #### [facility] [address] [place] [address] Dr. Allison Neely PAP ACOG PANEL 2: 30 to 65on 08-29-[address] [facility] Comment on above: Result Comment: Perf ormed at: WB Performed By: #### [id number] #### [facility] [address] [place] [address] Dr. Allison Neely Age Gdln ACOG Testing 30-[address] [facility] Comment on above: Performed By: #### [id number] #### [facility] [address] [place] [address] Dr. Allison Neely DIAGNOSIS: Comment Normal [facility] Comment on above: Result Comment: NEGA TIVE FOR INTRAEPITHELIAL LESION OR MALIGNANCY. CELLULAR CHANGES ASSOCIATED WITH ATROPHY ARE PRESENT. Performed at: WB Performed By: #### [id number] #### [facility] [address] [place] [address] Dr. Allison Neely HPV Aptima Negative Normal Negative [facility] Comment on above: Result Comment: This nucleic acid amplification test detects fourteen high-risk HPV types (16,18,31,33,35,39,45,51,52,56,58,59,66,68) without differentiation. Performed at: =G Performed By: #### [id number] #### [facility] [address] [place] [address] Dr. Allison Neely Methodology: Comment [facility] Comment on above: Result Comment: This liquid based ThinPrep(R) pap test was screened with the use of an image guided system. Performed at: WB Performed By: #### [id number] #### [facility] [address] [place] [address] Dr. Allison Neely Note: Comment Normal [facility] Comment on above: Result Comment: The Pap smear is a screening test designed to aid in the detection of premalignant and malignant conditions of the uterine cervix. It is not a diagnostic procedure and should not be used as the sole means of detecting cervical cancer. Both false-positive and false-negative reports do occur. . Performed at: WB Performed By: #### [id number] #### [facility] [address] [place] [address] Dr. Allison Neely Performed by: Comment Normal [facility] Comment on above: Result Comment: Nuno Solis, Rescue Worker (ASCP) Performed at: WB Performed By: #### [id number] #### [facility] [address] [place] [address] Dr. Allison Neely Specimen adequacy: Comment [facility] Comment on above: Result Comment: Sati sfactory for evaluation. Endocervical component may not be distinguished in cases of atrophy. Performed at: WB Performed By: #### [id number] #### [facility] [address] [place] [address] Dr. Allison Neely Activated partial thrombopla stin time (aPTT) in platelet poor plasma by coagulation aOrdered By: Anali Card on 08-26-2021 aPTT Coag (PPP) [Time] 33.9 s 25.1-36.5 [facility] Albumin [Mass/volume] in Ser um or PlasmaOrdered By: Anali Card on 08-26-2021 Albumin [Mass/Vol] 4.0 g/dL [facility] Albumin/Protein.total in 24 hour Urine by ElectrophoresisOrdered By: Anali Card on 08-26-2021 Albumin Elph (24H U) [Mass fraction] 22.6 % [facility] Automated erythrocytes count in urine sediment (number/area)Ordered By: Anali Card on 08-26-2021 RBC Auto (Urine sed) [#/Area] 0-1 [HPF] [facility] Automated leukocytes count i n urine sediment (number/area)Ordered By: Anali Card on 08-26-2021 WBC Auto (Urine sed) [#/Area] 0-1 [HPF] [facility] Basophils Auto (Bld) [#/Vol] Ordered By: Anali Card on 08-26-2021 Basophils (Bld) [#/Vol] 0.0 10*3/uL 0.0-0.2 [facility] Basophils/100 WBC Auto (Bld) Ordered By: Anali Card on 08-26-2021 Basophils/100 WBC (Bld) 0.8 % [facility] Bilirubin Test strip Ql (U)O rdered By: Anali Card on 08-26-2021 Bilirubin Ql (U) Negative Negative [facility] Blood hemoglobin measurement (mass/volume)Ordered By: Anali Card on 08-26-2021 Hemoglobin (Bld) [Mass/Vol] 13.5 g/dL 11.8-15.4 [facility] Blood leukocytes automated c ount (number/volume)Ordered By: Anali Card on 08-26-2021 WBC (Bld) [#/Vol] 3.3 10*3/uL 4.5-11.0 [facility] Body fluid albumin measureme nt (mass/volume)Ordered By: Anali Card on 08-26-2021 Albumin (Body fld) [Mass/Vol] 4.3 g/dL 3.2-5.5 [facility] Color Auto (U)Ordered By: Venkat Card on 08-26-2021 Color (U) Yellow Yellow [facility] Creatine kinase [Enzymatic a ctivity/volume] in Serum or PlasmaOrdered By: Anali Card on 08-26-2021 CK [Catalytic activity/Vol] 137 U/L 22-269 [facility] Creatinine and Glomerular fi ltration rate.predicted panel (S/P/Bld)Ordered By: Anali Card on 08-26-2021 Creatinine [Mass/Vol] 0.91 mg/dL 0.44-1.03 [facility] Dilute Morgan's viper venom timeOrdered By: Anali Card on 08-26-2021 dRVVT Coag (PPP) [Time] 39.[address] [facility] Eosinophils Auto (Bld) [#/Vo l]Ordered By: Anali Card on 08-26-2021 Eosinophils (Bld) [#/Vol] 0.1 10*3/uL 0.0-0.45 [facility] Eosinophils/100 WBC Auto (Bl d)Ordered By: Anali Card on 08-26-2021 Eosinophils/100 WBC (Bld) 4.2 % [facility] Erythrocyte distribution wid th Auto (RBC) [Ratio]Ordered By: Anali Card on 08-26-2021 Erythrocyte distribution width (RBC) [Ratio] 13.6 % 11.9-15.3 [facility] Erythrocyte sedimentation ra te by Photometric methodOrdered By: Anali Card on 08-26-2021 ESR Photometric method (Bld) [Velocity] 9 mm/hr 0-29 [facility] Estimated glomerular filtrat ion rate (GFR) non- AmericanOrdered By: Anali Card on 08-26-2021 GFR/1.73 sq M.predicted among non-blacks MDRD (S/P/Bld) [Vol rate/Area] > 60 mL/Min [facility] Gamma globulin/Protein.total in 24 hour Urine by ElectrophoresisOrdered By: Anali Card on 08-26-2021 Gamma globulin Elph (24H U) [Mass fraction] 16.7 % [facility] Globulin Calc (S) [Mass/Vol] Ordered By: Anali Card on 08-26-2021 Globulin (S) [Mass/Vol] 2.4 g/dL [facility] Hematocrit Auto (Bld) [Volum e fraction]Ordered By: Anali Card on 08-26-2021 Hematocrit (Bld) [Volume fraction] 39.9 % 34.0-46.4 [facility] Hepatitis B virus surface Ag [Presence] in Serum or Plasma by ImmunoassayOrdered By: Anali Card on 08-26-2021 HBV surface Ag IA Ql Negative Negative [facility] Hepatitis C virus RNA [Prese nce] in Serum or Plasma by MALIKA with probe detectionOrdered By: Anali Card on 08-26-2021 HCV RNA MALIKA+probe Ql N/A [facility] IgA [Mass/volume] in Serum o r PlasmaOrdered By: Anali Card on 08-26-2021 IgA [Mass/Vol] 103 mg/dL [facility] IgG [Mass/volume] in Serum o r PlasmaOrdered By: Anali Card on 08-26-2021 IgG [Mass/Vol] 617 mg/dL [facility] IgM [Mass/volume] in Serum o r PlasmaOrdered By: Anali Card on 08-26-2021 IgM [Mass/Vol] 226 mg/dL [facility] Comment on above: Performed at: [employer] [facility] [place] [address] Freelance Translator: Prakash Ballesteros PhD, Phone: [phone] Immunofixation for UrineOrde red By: Anali Card on 08-26-2021 Interpretation Immunofixation (U) [Interp] See comment [facility] Comment on above: No monoclonality det ected. Performed at: [employer] [facility] [place] [id number] Freelance Translator: Prakash Ballesteros PhD, Phone: [phone] Ketones Auto test strip (U) [Mass/Vol]Ordered By: Anali Card on 08-26-2021 Ketones (U) [Mass/Vol] Negative Negative [facility] Laboratory - CoagulationOrde red By: Anali Card on 08-26-2021 PT Coag (PPP) [Time] 11.1 s 9.0-12.9 [facility] - Hematology and Cell countsOrdered By: Anali Card on 08-26-2021 Nucleated RBC/100 WBC (Bld) [Ratio] 0.1 % 0-0.5 [facility] - UrinalysisOrder ed By: Anali Card on 08-26-2021 Hyaline casts LM Ql (Urine sed) 0-8 [LPF] [facility] Lupus anticoagulant [Interpr etation] in Platelet poor plasmaOrdered By: Anali Card on 08-26-2021 Lupus anticoagulant (PPP) [Interp] Comment: [facility] Comment on above: No lupus anticoagula nt was detected. Performed at: - [facility] [id number] Freelance Translator: Amanda Olmedo MD, Phone: [phone] Lymphocytes Auto (Bld) [#/Vo l]Ordered By: Anali Card on 08-26-2021 Lymphocytes (Bld) [#/Vol] 1.2 10*3/uL 1.00-4.8 [facility] Lymphocytes/100 WBC Auto (Bl d)Ordered By: Anali Card on 08-26-2021 Lymphocytes/100 WBC (Bld) 37.9 % [facility] MCH Auto (RBC) [Entitic mass ]Ordered By: Anali Card on 08-26-2021 MCH (RBC) [Entitic mass] 30.7 pg 24.7-34.3 [facility] MCHC Auto (RBC) [Mass/Vol]Or dered By: Anali Card on 08-26-2021 MCHC (RBC) [Mass/Vol] 33.8 g/dL 32.0-35.0 [facility] MCV Auto (RBC) [Entitic vol] Ordered By: Anali Card on 08-26-2021 MCV (RBC) [Entitic vol] 90.6 fL 80-[address] [facility] Monocytes Auto (Bld) [#/Vol] Ordered By: Anali Card on 08-26-2021 Monocytes (Bld) [#/Vol] 0.3 10*3/uL 0.0-0.8 [facility] Monocytes/100 WBC Auto (Bld) Ordered By: Anali Card on 08-26-2021 Monocytes/100 WBC (Bld) 8.5 % [facility] Neutrophils Auto (Bld) [#/Vo l]Ordered By: Anali Card on 08-26-2021 Neutrophils (Bld) [#/Vol] 1.6 10*3/uL 1.8-7.7 [facility] Neutrophils/100 WBC Auto (Bl d)Ordered By: Anali Card on 08-26-2021 Neutrophils/100 WBC (Bld) 48.6 % [facility] Nitrite Test strip Ql (U)Ord ered By: Anali Card on 08-26-2021 Nitrite Ql (U) Negative Negative [facility] No Panel InformationOrdered By: Anali Card on 08-26-2021 Estimated GFR () > 60 mL/Min [facility] Comment on above: GFR estimated refere nce range: According to KDOQI guidelines, <60 ml/min/1.73m2 is sufficient to diagnose a patient with chronic kidney disease. Hepatitis B Core Total Antibody Negative Negative [facility] Comment on above: Performed at: [employer] [facility] [address] [id number] Freelance Translator: Prakash Ballesteros PhD, Phone: [phone] Hepatitis C RNA Comment N/A [facility] Creatinine Clearance (Chem N/A [facility] Protein Electrophoresis M-Shawn Not observed g/dL Not Observed [facility] Protein Electrophoresis Note See comment [facility] Comment on above: Protein electrophore sis scan will follow via computer, mail, or processing operator delivery. Serum Immunofixation See comment [facility] Comment on above: No monoclonality det ected. Urine Random Prot Electrophor Note See comment [facility] Comment on above: Protein electrophore sis scan will follow via computer, mail, or processing operator delivery. Performed at: [employer] [facility] [address] [id number] Freelance Translator: Prakash Ballesteros PhD, Phone: [phone] Platelet mean volume Auto (B ld) [Entitic vol]Ordered By: Anali Card on 08-26-2021 Platelet mean volume (Bld) [Entitic vol] 9.9 fL 6.3-10.7 [facility] Platelet poor plasma interna tional normalized ratio (INR) by coagulation assay (relatOrdered By: Anali Card on 08-26-2021 INR Coag (PPP) [Relative time] 1.0 {INR} [facility] Comment on above: INR Therapeutic Rang [...] actual/normal Coag (PPP) [Relative time] 35.7 sec [facility] Platelets Auto (Bld) [#/Vol] Ordered By: Anali Card on 08-26-2021 Platelets (Bld) [#/Vol] 243 10*3/uL 150-450 [facility] Protein Auto test strip (U) [Mass/Vol]Ordered By: Anali Card on 08-26-2021 Protein (U) [Mass/Vol] Negative Negative [facility] Protein [Mass/volume] in Ser um or PlasmaOrdered By: Anali Card on 08-26-2021 Protein [Mass/Vol] 6.7 g/dL 6.1-7.9 [facility] Protein [Mass/Vol] 6.5 g/dL [facility] Protein [Mass/volume] in Uri neOrdered By: Anali Card on 08-26-2021 Protein (U) [Mass/Vol] 9.0 mg/dL Not Estab. Fi [facility] Protein.monoclonal/Protein.t otal in 24 hour Urine by ElectrophoresisOrdered By: Anali Card on 08-26-2021 Protein.monoclonal Elph (24H U) [Mass fraction] Not observed % Not Observed [facility] RBC Auto (Bld) [#/Vol]Ordere d By: Anali Card on 08-26-2021 RBC (Bld) [#/Vol] 4.40 10*6/uL 3.60-5.00 [facility] Reagin Ab [Presence] in Seru m by RPROrdered By: Anali Card on 08-26-2021 Reagin Ab RPR Ql (S) Non-Reactive Non Reactive [facility] Comment on above: Performed at: [employer] [facility] [employer] [place] [address] Freelance Translator: Prakash Ballesteros PhD, Phone: [phone] Serum angiotensin converting enzyme (MARC) measurementOrdered By: Anali Card on 08-26-2021 Angiotensin converting enzyme [Catalytic activity/Vol] 33 U/L [facility] Comment on above: Performed at: [employer] [place] [address] Freelance Translator: Prakash Ballesteros PhD, Phone: [phone] Serum globulin measurement ( mass/volume)Ordered By: Anali Card on 08-26-2021 Globulin (S) [Mass/Vol] 2.5 g/dL [facility] Serum hepatitis B virus surf marc antibody detectionOrdered By: Anali Card on 08-26-2021 HBV surface Ab Ql (S) Reactive [facility] Comment on above: Non Reactive: Incons istent with immunity, less than 10 mIU/mL Reactive: Consistent with immunity, greater than 9.9 mIU/mL Serum or plasma C reactive p rotein measurement (mass/volume)Ordered By: Anali Card on 08-26-2021 CRP [Mass/Vol] 0.5 mg/dL 0.0-1.0 [facility] Serum or plasma alanine shell otransferase measurement without P-5'-P (enzymatic activiOrdered By: Anali Card on 08-26-2021 ALT No additional P-5'-P [Catalytic activity/Vol] 37 U/L 10-60 [facility] Serum or plasma albumin/glob ulin mass ratioOrdered By: Anali Card on 08-26-2021 Albumin/Globulin [Mass ratio] 1.8 {ratio} [facility] Albumin/Globulin [Mass ratio] 1.6 {ratio} [facility] Serum or plasma alkaline kiesha sphatase measurement (enzymatic activity/volume)Ordered By: Anali Card on 08-26-2021 ALP [Catalytic activity/Vol] 41 U/L 32-92 [facility] Serum or plasma alpha 1 glob ulin measurement by electrophoresis (mass/volume)Ordered By: Anali Card on 08-26-2021 Alpha 1 globulin Elph [Mass/Vol] 0.2 g/dL [facility] Serum or plasma alpha 2 glob ulin measurement by electrophoresis (mass/volume)Ordered By: Anali Card on 08-26-2021 Alpha 2 globulin Elph [Mass/Vol] 0.6 g/dL [facility] Serum or plasma aspartate am inotransferase measurement (enzymatic activity/volume)Ordered By: Anali Card on 08-26-2021 AST [Catalytic activity/Vol] 26 U/L 10-42 [facility] Serum or plasma beta globuli n measurement by electrophoresis (mass/volume)Ordered By: Anali Card on 08-26-2021 Beta globulin Elph [Mass/Vol] 1.0 g/dL [facility] Serum or plasma calcium lenka urement (mass/volume)Ordered By: Anali Card on 08-26-2021 Calcium [Mass/Vol] 9.6 mg/dL 8.2-10.2 [facility] Serum or plasma chloride bob surement (moles/volume)Ordered By: Anali Card on 08-26-2021 Chloride [Moles/Vol] 105 mmol/L 95-114 [facility] Serum or plasma gamma globul in measurement by electrophoresis (mass/volume)Ordered By: Anali Card on 08-26-2021 Gamma globulin Elph [Mass/Vol] 0.7 g/dL [facility] Serum or plasma glucose lenka urement (mass/volume)Ordered By: Anali Card on 08-26-2021 Glucose [Mass/Vol] 108 mg/dL 70-100 [facility] Comment on above: ADA recommended refe [...] 08-26-2021 HCV Ab IA Ql See comment [facility] Comment on above: Negative Not infected with HCV, unless recent infection is suspected or other evidence exists to indicate HCV infection. Effective September 02, 2021 HCV Antibody reflex to MALIKA will be made non-orderable. This will affect any Custom Profile that includes 209237 HCV Antibody reflex to MALIKA. [employer] offers order code [id number] HCV Antibody RFX to Quant PCR as an alternative. Performed at: [facility] [id number] Freelance Translator: Prakash Ballesteros PhD, Phone: [phone] Serum or plasma hepatitis C virus antibody signal/cutoff ratio by immunoassay (relatiOrdered By: Anali Card on 08-26-2021 HCV Ab Signal/Cutoff IA [Rel units/Vol] <0.1 s/co ratio [facility] Serum or plasma potassium me asurement (moles/volume)Ordered By: Anali Card on 08-26-2021 Potassium [Moles/Vol] 4.5 mmol/L 3.5-5.1 [facility] Serum or plasma sodium measu rement (moles/volume)Ordered By: Anali Card on 08-26-2021 Sodium [Moles/Vol] 142 mmol/L 136-146 [facility] Serum or plasma thyroglobuli n antibody assay (units/volume)Ordered By: Anali Card on 08-26-2021 Thyroglobulin Ab Qn [IU]/mL [facility] Comment on above: Thyroglobulin Antibo dy measured by [employer] Performed at: [facility] [id number] Freelance Translator: Prakash Ballesteros PhD, Phone: [phone] Serum or plasma thyroperoxid ase antibody assay (units/volume)Ordered By: Anali Card on 08-26-2021 TPO Ab Qn 12 [IU]/mL [facility] Comment on above: Performed at: [address] [id number] Freelance Translator: Prakash Ballesteros PhD, Phone: [phone] Serum or plasma total biliru bin measurement (mass/volume)Ordered By: Anali aCrd on 08-26-2021 Bilirubin [Mass/Vol] 0.5 mg/dL 0.3-1.2 [facility] Serum or plasma total carbon dioxide measurement (moles/volume)Ordered By: Anali Card on 08-26-2021 CO2 [Moles/Vol] 26.9 mmol/L 22.0-30.0 [facility] Serum or plasma urea nitroge n measurement (mass/volume)Ordered By: Anali Card on 08-26-2021 Urea nitrogen [Mass/Vol] 17 mg/dL 9-23 [facility] Specific gravity Auto test s trip (U) [Rel density]Ordered By: Anali Card on 08-26-2021 Specific gravity (U) [Rel density] 1.017 1.001-1.03 0 [facility] Squamous epithelial cells de tection in urine sediment by light microscopyOrdered By: Anali Card on 08-26-2021 Epithelial cells.squamous LM Ql (Urine sed) None seen [HPF] [facility] TSH DL <= 0.005 mIU/L QnOrde red By: Anali Card on 08-26-2021 TSH Qn 1.43 m[IU]/L 0.45-5.33 [facility] TT plasOrdered By: Anali hall on 08-26-2021 Thrombin time Coag (PPP) [Time] 20.6 sec [facility] Thyroxine (T4) free [Mass/vo lume] in Serum or PlasmaOrdered By: Anali Card on 08-26-2021 Free T4 [Mass/Vol] 0.77 ng/dL 0.61-1.12 [facility] Urine alpha 1 globulin/total protein by electrophoresisOrdered By: Anali Card on 08-26-2021 Alpha 1 globulin Elph (U) [Mass fraction] 7.7 % [facility] Urine alpha 2 globulin/total protein ratio by electrophoresisOrdered By: Anali Card on 08-26-2021 Alpha 2 globulin Elph (U) [Mass fraction] 15.7 % [facility] Urine bacteria detection by automated methodOrdered By: Anali Card on 08-26-2021 Bacteria Auto Ql (U) None seen None Seen [facility] Urine beta globulin measurem ent by electrophoresis (mass/volume)Ordered By: Anali Card on 08-26-2021 Beta globulin Elph (U) [Mass/Vol] 37.4 % [facility] Urine clarity by refractomet ry automatedOrdered By: Anali Card on 08-26-2021 Clarity Refractometry automated (U) Clear Clear [facility] Urine glucose measurement by automated test strip (mass/volume)Ordered By: Anali Card on 08-26-2021 Glucose Auto test strip (U) [Mass/Vol] Normal mg/dL Normal [facility] Urine hemoglobin detection b y automated test stripOrdered By: Anali Card on 08-26-2021 Hemoglobin Auto test strip Ql (U) Negative Negative [facility] Urine leukocyte esterase det ection by automated test stripOrdered By: Anali Card on 08-26-2021 Leukocyte esterase Auto test strip Ql (U) Negative Negative [facility] Urobilinogen Auto test strip (U) [Mass/Vol]Ordered By: Anali Card on 08-26-2021 Urobilinogen (U) [Mass/Vol] Normal mg/dL Normal [facility] aPTT.lupus sensitive (LA scr een)Ordered By: Anali Card on 08-26-2021 aPTT.lupus sensitive Coag (PPP) [Time] 35.3 sec [facility] aPTT.lupus sensitive/aPTT.scotty pus sensitive W excess phospholipid (screen to confirm raOrdered By: Anali Card on 08-26-2021 aPTT.lupus sensitive/aPTT.lupus sensitive W excess phospholipid Coag (PPP) [Ratio] 1.04 Ratio [facility] pH Auto test strip (U)Ordere d By: Anali Card on 08-26-2021 pH (U) 6.0 [pH] 5.0-9.0 [facility] Encounters Encounter Date Encounter Type Care Provider Facility Start: 03-08-2024 ambulatory Oj HIDALGODarius Facility :[facility] Start: 02-09-2024 ambulatory Oj GONZALEZ Facility:[facility] Start: 05-25-2023 End: 05-25-2023 ambulatory BILL SOTELO Not Available Start: 05-25-2023 End: 05-25-2023 Departed Referred Bill Sotelo Work Phone: [facility] Start: 02-12-2023 End: 02-12-2023 ambulatory Anali Card Facility:[facility] Start: 02-12-2023 End: 02-12-2023 ambulatory MD Sacha Monroy Work Phone: [facility] Work Phone: Start: 02-12-2023 End: 02-12-2023 Patient encounter procedure MD Sacha Monroy Work Phone: [facility] [address] Work Phone: Start: 06-06-2022 End: 06-07-[address] ANALI CARD Facility:[facility] Start: 12-25-2021 End: 12-26-[address] ANALI CARD Facility:[facility] Start: 09-05-2021 End: 09-05-2021 Patient encounter procedure MD Sacha Monroy Work Phone: [facility] [address] Start: 08-26-2021 End: 08-26-2021 Patient encounter procedure MD Sacha Monroy Work Phone: [facility] [address] Start: 08-22-2021 End: 08-22-[address] LUCERO KUHN Facility:[facility] Procedures Date Procedure Procedure Detail Performing Clinician Start: 09-05-2021 Plain X-ray of bilat eral wrists MD Sacha Monroy Work Phone: Start: 09-05-2021 Plain X-ray of bilat eral hands MD Sacha Monroy Work Phone: Plan of Treatment Date Care Activity Detail Author 24 hour urine measurement [facility] Work Phone: Albumin [Mass/volume] in Serum or Plasma [facility] Work Phone: Albumin/Globulin ratio [facility] Work Phone: Angiotensin converti ng enzyme [Enzymatic activity/volume] in Serum or Plasma [facility] Work Phone: aPTT.lupus sensitive (LA screen) [facility] Work Phone: aPTT.lupus sensitive W excess phospholipid actual/Normal (normalized LA confirm) [facility] Work Phone: aPTT.lupus sensitive /aPTT.lupus sensitive W excess phospholipid (screen to confirm ra [facility] Work Phone: dRVVT (LA screen) [facility] Work Phone: Electrophoresis: [id number] [facility] Work Phone: Electrophoresis: [id number] [facility] Work Phone: Electrophoresis: beta-globulin [facility] Work Phone: Electrophoresis: gamma globulin [facility] Work Phone: Globulin [Mass/volume] in Serum [facility] Work Phone: Hepatitis B core antibody measurement [facility] Work Phone: Hepatitis B virus byers rface Ab [Presence] in Serum [facility] Work Phone: Hepatitis B virus byers rface Ag [Presence] in Serum or Plasma by Immunoassay [facility] Work Phone: Hepatitis C virus Ab Signal/Cutoff in Serum or Plasma by Immunoassay [facility] Work Phone: Hepatitis C virus RN A [Presence] in Serum or Plasma by MALIKA with probe detection [facility] Work Phone: IgA [Mass/volume] in Serum or Plasma [facility] Work Phone: IgG [Mass/volume] in Serum or Plasma [facility] Work Phone: IgM [Mass/volume] in Serum or Plasma [facility] Work Phone: Immunofixation for Urine [facility] Work Phone: Lupus anticoagulant [Interpretation] in Platelet poor plasma [facility] Work Phone: Measurement of monoc lonal protein concentration [facility] Work Phone: Protein [Mass/volume] in Serum or Plasma [facility] Work Phone: Protein [Mass/volume] in Urine [facility] Work Phone: Reagin Ab [Presence] in Serum by RPR [facility] Work Phone: Serum immunofixation [facility] Work Phone: Thrombin time [facility] Work Phone: Thyroglobulin Ab [Un its/volume] in Serum or Plasma [facility] Work Phone: Thyroperoxidase Ab [ Units/volume] in Serum or Plasma [facility] Work Phone: Immunizations Immunization Date Immunization Notes Care Provider Fa cili 05-30-2020 COVID-19 mRNA-1273 (Arnoldo) MD Sacha Monroy Work Phone: [facility] 05-02-2020 COVID-19 mRNA-1273 (Arnoldo) MD Sacha Monroy Work Phone: [facility] Payers Date Payer Category Payer Self-pay [id number] 1965 Unknown [id number] 2.16.84 [id number] 1965 Unknown [id number] 2.16.84 [id number] 1965 Unknown [id number] 2.16.84 [id number] 1965 Unknown [id number] 2.16.84 [id number] 1965 Unknown [id number] 2.16.8 [id number] 1959 Unknown [id number] Unknown [employer] [id number] Unknown [id number] 2.16.8 [id number] Unknown [id number] 2.16.8 [id number] Social History Date Type Detail Facility Start: 09-26-2020 End: 09-26-2020 Tobacco smoking status NHIS Never smoked tobacco (finding) [facility] Start: 1965 Sex Assigned At Female F [facility] Evaluation note Note Date & Type Note Facility Evaluation note No assessment information availa [facility] Work Phone: Family History [...] Status: Inactive Member Role Status Dates Bill Deepak Attending Provider Active Start: Roman howard 2023 [...] DATE CREATED AUTHOR AUTHOR'S ORGANIZ ATION 05/26/2023 [facility] EPIC DATE CREATED AUTHOR AUTHOR'S ORGANIZ ATION 06/23/2023 [facility] DATE CREATED AUTHOR AUTHOR'S ORGANIZ ATION 02/13/2024 [facility] FOR RECORDS PERTAINING TO PATIENTS WHO ARE [...] BE BASED ON THE PRIMARY CLINICAL RECORDS. [facility] [employer] [facility]. provides no warranty or guarantee of the accuracy or completeness of information in this document.
[2024-02-18 05:08] LABS: HIV Ab/p24 Ag Screen Non Reactive (Non Reactive)
[2024-02-18 06:12] LABS: HCV Antibody Non Reactive (Non Reactive)
[2024-02-18 12:10] LABS: Rapid Plasma Reagin, Quant Non Reactive titer (NonRea<1:1)
== END 2024-02-17 13:47 | disposition home or self-care (01) ==
LOC: ER 14:04
PROVIDERS: Physician Assistant; Emergency Provider Emergency Medicine; PCP Family Medicine
DX: S61.231A Puncture wound without foreign body of left index finger without damage to nail, initial encounter (principal); Z77.21 Contact with and (suspected) exposure to potentially hazardous body fluids; W46.1XXA Contact with contaminated hypodermic needle, initial encounter; Z23 Encounter for immunization
CPT/HCPCS: 36415; 80076; 86317; 86592; 86803; 87389; 90471; 90715; 99283

== ENCOUNTER 2024-03-03 14:59 | Outpatient (OUT) | payer BC, SELFPAY ==
[2024-03-03 15:55] LABS: Alanine Aminotransferase 54 U/L (14-59); Albumin Level 3.5 g/dL (3.4-5.0); Alkaline Phosphatase 88 U/L (46-116); Aspartate Amino Transferase 23 U/L (15-37); Bilirubin Direct 0.1 mg/dL (0.0-0.2); Bilirubin Total 0.3 mg/dL (0.2-1.0); Globulin 3.4 g/dL; Total Protein 6.9 g/dL (6.4-8.2)
== END 2024-03-03 15:00 | disposition home or self-care (01) ==
LOC: LAB 15:01
PROVIDERS: PCP Family Medicine; Visit Provider Family Medicine
DX: R74.8 Abnormal levels of other serum enzymes (principal)
CPT/HCPCS: 36415; 80076

== ENCOUNTER 2024-03-24 08:32 | Outpatient (OUT) | payer BC, SELFPAY ==
--- OUTSIDE RECORDS SUMMARY | 2024-03-24 08:37 | XMS_ITS | CCD ---
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 Role Phone MD Sacha Monroy Primary Care Provider [phone] MD Vishal Card Attending Provider KYAW, DR [...] Unavailable MD Sacha Monroy Primary Care Provider [phone] MD Anali Card Attending Provider BILL SOTELO Attending Unavailable Bill Sotelo Attending Provider [phone] Bill Sotelo Attending Unavailable Bill Sotelo Admitting Unavailable Anali Card Attending Unavailable Anali Card Admitting Unavailable Sacha Monroy Primary Care Unavailable Sacha Monroy Primary Care Physician Oj GONZALEZ Attending Unavailable Sacha Monroy Referring Unavailable Allergies Allergy Classification Reported Allergen(s) Allergy Type Date of Onset Reaction(s) Facility (1 source) No Known Medication Allergies; Translations: [No Known Medication Allergies] Propensity to adverse reactions (disorder) [facility] Repository Medications Current Medications Medication Drug Class(es) Dates Sig (Normalized) Sig (Original) aspirin 81 mg delayed release oral tablet (5 sources) Platelet Aggregation Inhibitor, Nonsteroidal Anti-inflammatory Drug Start: 02-15-2024 take 1 tablet by mouth once daily aspirin 81 mg Oral EC Tab 81 mg = 1 tab(s), Oral, Daily, Refills(s) 0 Start Date: 02/15/24 Status: Ordered Start: 09-26-2020 take 1 tablet by sarabjit th once daily Aspirin (Aspirin Low Dose) 81 mg Tablet,Delayed Release (Dr/Ec) Active 81 MG PO Daily September 25, 2020 11:00pm 24 hr diclofenac sodium 100 mg extended release oral tablet (1 source) Nonsteroidal Anti-inflammatory Drug Start: 02-15-2024 take 1 tablet by mouth once daily diclofenac sodium 100 mg ER Tab 100 mg = 1 tab(s), Oral, Daily, Refills(s) 0 Start Date: 02/15/24 Status: Ordered Multi Vitamins oral tablet (1 source) Start: 02-15-2024 take 1 tablet by mouth once daily Multi Vitamins oral tablet 1 tab(s), Oral, Daily, Refill(s) 0 Start Date: 02/15/24 Status: Ordered phentermine hydrochloride 37.5 mg oral tablet (8 [...] Daily September 25, 2020 11:00pm traZODone hydrochloride 50 mg oral tablet (5 sources) Serotonin Reuptake Inhibitor Start: 02-15-2024 take 1 tablet by mouth once daily at bedtime traZODONE 50 mg Tab 50 mg = 1 tab(s), Oral, Once a day (at bedtime), Refills(s) 0 Start Date: 02/15/24 Status: Ordered Start: 09-26-2020 take 50 mg by mouth at bedtime Trazodone Active 50 MG PO Bedtime September 25, 2020 11:00pm Ventolin HFA 90 mcg/inh Aerosol-Adpt (1 source) Start: 02-15-2024 take 2 puff(s) by inhalation every four hours Ventolin HFA 90 mcg/inh Aerosol-Adpt 2 puff(s), Inhalation, q4hr, Refill(s) 0 Start Date: 02/15/24 Status: Ordered Problems Active Problems Problem Classification Problem Date Documented Date Episodic/Chronic Asthma (1 source) Asthma 02-15-2024 Chronic Disorders of lipid metabolism (1 source) Hypercholesterolemia 02-15-2024 Chronic Heart valve disorders (1 source) Mitral valve prolapse 02-15-2024 Chronic Osteoarthritis (5 sources) Unspecified osteoarthritis, unspecified site; Translations: [Primary generalized (osteo)arthritis] Onset: 06-06-19 Chronic Other aftercare (1 source) Other oysterman (current) drug therapy; Translations: [OTH DETENTION CURRENT DRUG THERAPY] Onset: 06-08-19 Episodic Other female genital disorders (1 source) History of gynecological disorder 02-15-2024 Episodic Other gastrointestinal disorders (1 source) Abnormal feces; Translations: [Other fecal abnormalities] Onset: 03-08-20 Episodic Other gastrointestinal disorders (1 source) Occult blood in stools 02-15-2024 Episodic Other nutritional; endocrine; and metabolic disorders (1 source) Body mass index 30+ - obesity 03-08-2024 Chronic Other nutritional; endocrine; and metabolic disorders (1 source) Obesity caused by energy imbalance 02-15-2024 Chronic Other screening for suspected conditions (not mental disorders or infectious disease) (5 sources) Encounter for screening for malignant neoplasm of cervix; Translations: [Stool DNA-based colorectal cancer screening positive] Onset: 08-23-19 Episodic Other upper respiratory disease (1 source) Allergic rhinitis 02-15-2024 Chronic Phlebitis; thrombophlebitis and thromboembolism (1 source) H/O: Deep vein thrombosis 02-15-2024 Episod ic Residual codes; unclassified (1 source) Insomnia 02-15-2024 Episodic Thyroid disorders (1 source) Thyroid nodule 02-15-2024 Chronic Past or Other Problems Problem Classification Problem Date Documented Date Episodic/Chronic Immunizations and screening for infectious disease (2 sources) Raised antibody titer; Translations: [Encounter for screening for human papillomavirus (HPV)] Onset: 08-23-2021 Episodic Results Test Name Value Interpretation Reference Range Facility Ambulatory Visit Summaryon 1 05-08-2023 Ambulatory Visit Summary Ambulatory Visi t Summary JUAN CARLOS OGDEN :1965 Visit Date:03/08/2024 Ambulatory Visit Instructions Your Diagnosis Positive colorectal cancer screening using Cologuard test Your Care Team Attending Physician - CARLOS ROLDAN, Oj Rodriguez Primary Care Physician - Sacha Monroy MD Referring Physician - Sacha Monroy MD This Is Your Medications List Contact prescribing physician if questions or concerns albuterol (Ventolin HFA 90 mcg/inh Aerosol-Adpt) aspirin (aspirin 81 mg Oral EC Tab) diclofenac (diclofenac sodium 100 mg ER Tab) multivitamin (Multi Vitamins oral tablet) trazodone (traZODONE 50 mg Tab) Procedures Performed Laparoscopic cholecystectomy, Tonsillectomy. Discharge Vitals Heart Rate (Peripheral) 72 Respiratory Rate 16 Blood Pressure 112/72 Height 175.2 cm Height 69 in Weight 102 kg Weight 224.4 lb BMI 33.23 Medications What How Much When Instructions Unchanged albuterol (Ventolin HFA 90 mcg/ inh Aerosol-Adpt) 2 Puffs Inhalation Every 4 hours Contact prescribing physician if questions or concerns Unchanged aspirin (aspirin 81 mg Oral EC Tab) 1 Tablets By Mouth Every day Contact prescribing physician if questions or concerns Unchanged diclofenac (diclofenac sodium 100 mg ER Tab) 1 Tablets By Mouth Every day Contact prescribing physician if questions or concerns Unchanged multivitamin (Multi Vitamins oral tablet) 1 Tablets By Mouth Every day Contact prescribing physician if questions or concerns Unchanged trazodone (traZODONE 50 mg Tab) 1 Tablets By Mouth Once a day (at bedtime) Contact prescribing physician if questions or concerns Allergies No Known Allergies No Known Medication Allergies Problems Ongoing - Any problem that you are currently receiving treatment for. Allergic rhinitis Asthma BMI 33.0-33.9,adult History of DVT of lower extremity History of ovarian cyst Hypercholesterolemia Insomnia MVP (mitral valve prolapse) Obesity due to excess calories Positive colorectal cancer screening using Cologuard test Positive occult stool blood test Thyroid nodule Patient Survey You may receive a survey via text or e-mail asking about your office visit. Please share your experience with us by completing your survey. We appreciate your feedback and thank you for choosing us for your care. Normal [facility] [place] 05-25-2023 L Specimen: [id number] Received: 05/26/23 Status: MARIELA Mcgrath Num: [id number] Spec Type: Surgical Subm Dr: Bill Sotelo Tissues: A Cervical Polyp (CERVICAL POLYP) Procedures: HE/2, Gross/Micro L4 Age/ Patient Sex Location Account Attending Physician Juan Carlos Ogden 57/F [place] [id number] Bill Sotelo SPEC NUM: [id number] RECD: 05/26/23 STATUS: MARIELA MCGRATH NUM: [id number] DARIUS: 05/25/23- DR: Bill Sotelo ENTERED: 05/26/[address] [facility] DR: Anali,Lab SPEC TYPE: Surgical DEPT: ADELSO [...] in one cassette labeled A1. CPT Codes 93949 Specimen: [id number] Received: 05/26/23 Status: MARIELA Alcides Num: [id number] Spec Type: Surgical Subm Dr: Bill Sotelo Tissues: A Cervical Polyp (CERVICAL POLYP) Procedures: HE/2, Gross/Micro L4 Patient: Juan Carlos Ogden [id number] (Continued) Signed (signature on file) Hero Neely MD 05/27/[address] [facility] Alanine aminotransferase [En zymatic activity/volume] in Serum or PlasmaOrdered By: Anali Card on 02-12-2023 ALT [Catalytic activity/Vol] 70 U/L High 7-52 [facility] Comment on above: Performed By: #### C RONNY, CBC #### [facility] [address] [place] [address] Albumin [Mass/volume] in Ser um or Plasma by Bromocresol green (BCG) dye binding methoOrdered By: Anali Card on 02-12-2023 Albumin BCG dye [Mass/Vol] 4.3 g/dL 3.5-5.7 [facility] Alkaline phosphatase [Enzyma tic activity/volume] in Serum or PlasmaOrdered By: Anali Card on 02-12-2023 ALP [Catalytic activity/Vol] 80 U/L Normal 34-104 [facility] Comment on above: Result Comment: PERF ORMED BY: [place] [address] PATHOLOGIST [employer] L[employer]ER OLGA LIDIA CORONA M.D. Performed By: #### C MP, CBC #### [facility] [address] [place] [address] Aspartate aminotransferase [ Enzymatic activity/volume] in Serum or PlasmaOrdered By: Anali Lalrow on 02-12-2023 AST [Catalytic activity/Vol] 36 U/L Normal 13-39 [facility] Comment on above: Performed By: #### C MP, CBC #### [address] Automated basophil %Ordered By: Anali Kyaw on 02-12-2023 Basophils/100 WBC (Bld) 0.4 % Normal . [facility] Comment on above: Performed By: #### C MP, CBC #### [address] Automated basophil countOrde red By: Anali Kyaw on 02-12-2023 Basophils (Bld) [#/Vol] 0.0 10*3/uL Normal 0.0-0.2 [facility] Comment on above: Result Comment: PERF ORMED BY: [place] [address] PATHOLOGIST [employer] L[employer] OLGA LIDIA CORONA M.D. Performed By: #### C MP, CBC #### [address] Automated blood monocyte cou ntOrdered By: Analigardenia Card on 02-12-2023 Monocytes (Bld) [#/Vol] 0.4 10*3/uL Normal 0.0-0.8 [facility] Comment on above: Performed By: #### C MP, CBC #### [address] Automated eosinophil %Ordere d By: Analigardenia Card on 02-12-2023 Eosinophils/100 WBC (Bld) 2.1 % Normal . [facility] Comment on above: Performed By: #### C MP, CBC #### [address] Automated eosinophil countOr dered By: Analigardenia Card on 02-12-2023 Eosinophils (Bld) [#/Vol] 0.1 10*3/uL Normal 0.0-0.45 [facility] Comment on above: Performed By: #### C MP, CBC #### [facility] [address] Automated monocyte %Ordered By: Anali Lalrow on 02-12-2023 Monocytes/100 WBC (Bld) 8.2 % Normal . F [facility] Comment on above: Performed By: #### C MP, CBC #### [facility] [address] Automated neutrophil %Ordere d By: Anlai Lalrow on 02-12-2023 Neutrophils/100 WBC (Bld) 58.3 % Normal . [facility] Comment on above: Performed By: #### C MP, CBC #### [facility] [address] Bilirubin.total [Mass/volume ] in Serum or PlasmaOrdered By: Anali Kyaw on 02-12-2023 Bilirubin [Mass/Vol] 0.5 mg/dL Normal 0.3-1.0 [facility] Comment on above: Performed By: #### C MP, CBC #### [facility] [address] [place] [address] [place] Calcium [Mass/volume] in Ser um or PlasmaOrdered By: Anali Kyaw on 02-12-2023 Calcium [Mass/Vol] 9.2 mg/dL Normal 8.6-10.3 [facility] Comment on above: Performed By: #### C MP, CBC #### [facility] [address] [place] [address] [place] Carbon dioxide, total [Moles /volume] in Serum or PlasmaOrdered By: Anali Kyaw on 02-12-2023 CO2 [Moles/Vol] 28.6 mmol/L Normal 21.0-31.0 [facility] Comment on above: Performed By: #### C MP, CBC #### [facility] [address] [place] [address] [place] Chloride [Moles/volume] in S tex or PlasmaOrdered By: Anali Kyaw on 02-12-2023 Chloride [Moles/Vol] 106 mmol/L Normal 98-107 [facility] Comment on above: Performed By: #### C MP, CBC #### [address] Complete Blood Count Auto Di ffon 02-12-2023 Mean Corpuscular HGB Conc 33.5 g/dL Normal 32.0-35.0 [facility] Comment on above: Performed By: #### C MP, CBC #### [facility] [address] [place] [address] NRBC% 0.1 /100{WBC} Normal 0-0.5 [facility] Comment on above: Performed By: #### C MP, CBC #### [address] Comprehensive Metabolic Pane albino 02-12-2023 Albumin [Mass/Vol] 4.3 g/dL Normal 3.5-5.7 [facility] Comment on above: Performed By: #### C MP, CBC #### [address] GFR/1.73 sq M.predicted MDRD (S/P/Bld) [Vol rate/Area] mL/min/{1.73_m2} Normal [facility] Comment on above: Performed By: #### C MP, CBC #### [address] Creatinine [Mass/volume] in Serum or PlasmaOrdered By: Anali Card on 02-12-2023 Creatinine [Mass/Vol] 0.93 mg/dL Normal 0.60-1.20 [facility] Comment on above: Performed By: #### C MP, CBC #### [address] Erythrocyte distribution wid th [Ratio] by Automated countOrdered By: Anali Card on 02-12-2023 Erythrocyte distribution width (RBC) [Ratio] 14.5 % Normal 11.9-15.3 [facility] Comment on above: Performed By: #### C MP, CBC #### [address] Erythrocytes [#/volume] in B lood by Automated countOrdered By: Anali Lalrow on 02-12-2023 RBC (Bld) [#/Vol] 4.32 10*6/uL Normal 3.60-5.00 [facility] Comment on above: Performed By: #### C MP, CBC #### [address] Glucose [Mass/volume] in Ser um or PlasmaOrdered By: Anali Card on 02-12-2023 Glucose [Mass/Vol] 107 mg/dL High 70-100 [facility] Comment on above: ADA recommended refe rence rangeRandom Glucose Reference Range is dependent on time and content of last meal. Glucose of more than 200 mg/dL in a nonstressed, ambulatory subject supports the diagnosis of Diabetes Mellitus. Result Comment: [place] om Glucose Reference Range is dependent on time and content of last meal. Glucose of more than 200 mg/dL in a nonstressed, ambulatory subject supports the diagnosis of Diabetes Mellitus. ADA recommended reference range Performed By: #### C MP, CBC #### [address] Hematocrit [Volume Fraction] of Blood by Automated countOrdered By: Anali Lalrow on 02-12-2023 Hematocrit (Bld) [Volume fraction] 39.2 % Normal 34.0-46.4 [facility] Comment on above: Performed By: #### C MP, CBC #### [address] Hemoglobin [Mass/volume] in BloodOrdered By: Analigardenia Card on 02-12-2023 Hemoglobin (Bld) [Mass/Vol] 13.1 g/dL Normal 11.8-15.4 [facility] Comment on above: Performed By: #### C MP, CBC #### [address] Leukocytes [#/volume] correc henry for nucleated erythrocytes in Blood by Automated counOrdered By: Anali Card on 02-12-2023 WBC corrected for nucl RBC Auto (Bld) [#/Vol] 4.9 10*3/uL 3.8-11.6 [facility] Leukocytes [#/volume] in Blo od by Automated countOrdered By: Anali Lalrow on 02-12-2023 WBC (Bld) [#/Vol] 4.9 10*3/uL Normal 3.8-11.6 [facility] Comment on above: Performed By: #### C MP, CBC #### [facility] [address] [place] [address] [place] Lymphocytes [#/volume] in Bl ood by Automated countOrdered By: Anali Lalrow on 02-12-2023 Lymphocytes (Bld) [#/Vol] 1.5 10*3/uL Normal 1.00-4.8 [facility] Comment on above: Performed By: #### C MP, CBC #### [address] Lymphocytes/100 leukocytes i n Blood by Automated countOrdered By: Anali Card on 02-12-2023 Lymphocytes/100 WBC (Bld) 31.0 % Normal . [facility] Comment on above: Performed By: #### C MP, CBC #### [address] MCH [Entitic mass] by Automa henry countOrdered By: Anali Lalrow on 02-12-2023 MCH (RBC) [Entitic mass] 30.4 pg Normal 24.7-34.3 [facility] Comment on above: Performed By: #### C MP, CBC #### [address] MCHC Auto (RBC) [Mass/Vol]Or dered By: Anali Card on 02-12-2023 MCHC (RBC) [Mass/Vol] 33.5 g/dL 32.0-35.0 [facility] MCV [Entitic volume] by Auto mated countOrdered By: Anali Kyaw on 02-12-2023 MCV (RBC) [Entitic vol] 90.8 fL Normal 80-[address] [facility] Comment on above: Performed By: #### C MP, CBC #### [address] [place] [address] [place] Neutrophils [#/volume] in Bl ood by Automated countOrdered By: Anali Kyaw on 02-12-2023 Neutrophils (Bld) [#/Vol] 2.9 10*3/uL Normal 1.8-7.7 [facility] Comment on above: Performed By: #### C MP, CBC #### [address] No Panel InformationOrdered By: Anali Card on 02-12-2023 Estimated GFR (CKD-EPI) > 60.0 mL/Min [facility] Creatinine Clearance (Chem N/A [facility] Nucleated erythrocytes [Pres ence] in Blood by Automated countOrdered By: Anali Card on 02-12-2023 Nucleated RBC Auto Ql (Bld) 0.1 /100{WBC} 0-0.5 [facility] Platelet mean volume [Entiti c volume] in Blood by Automated countOrdered By: Anali Card on 02-12-2023 Platelet mean volume (Bld) [Entitic vol] 9.6 fL Normal 6.3-10.7 [facility] Comment on above: Performed By: #### C MP, CBC #### [place] [address] [place] Platelets [#/volume] in Bloo d by Automated countOrdered By: Anali Card on 02-12-2023 Platelets (Bld) [#/Vol] 202 10*3/uL Normal 150-450 [facility] Comment on above: Performed By: #### C MP, CBC #### [place] [address] [place] Potassium [Moles/volume] in Serum or PlasmaOrdered By: Anali Card on 02-12-2023 Potassium [Moles/Vol] 4.6 mmol/L Normal 3.5-5.1 [facility] Comment on above: Performed By: #### C MP, CBC #### [place] [address] [place] Protein [Mass/volume] in Ser um or PlasmaOrdered By: Anali Card on 02-12-2023 Protein [Mass/Vol] 6.6 g/dL Normal 6.4-8.9 [facility] Comment on above: Performed By: #### C MP, CBC #### [address] Serum globulin measurement b y calculation (mass/volume)Ordered By: Anali Lalrow on 02-12-2023 Globulin (S) [Mass/Vol] 2.3 g/dL Normal [facility] Comment on above: Performed By: #### C MP, CBC #### [address] Serum or plasma albumin/glob ulin mass ratioOrdered By: Anali Kyaw on 02-12-2023 Albumin/Globulin [Mass ratio] 1.9 {ratio} Normal [facility] Comment on above: Performed By: #### C MP, CBC #### [address] Serum or plasma anion gap de terminationOrdered By: Anali Lalrow on 02-12-2023 Anion gap [Moles/Vol] 11.0 mmol/L Normal 6.0-15.0 [facility] Comment on above: Performed By: #### C MP, CBC #### [address] Sodium [Moles/volume] in Ser um or PlasmaOrdered By: Anali Kyaw on 02-12-2023 Sodium [Moles/Vol] 141 mmol/L Normal 136-145 [facility] Comment on above: Performed By: #### C MP, CBC #### [address] Urea nitrogen [Mass/volume] in Serum or PlasmaOrdered By: Analigardenia Card on 02-12-2023 Urea nitrogen [Mass/Vol] 16 mg/dL Normal 7-25 [facility] Comment on above: Performed By: #### C MP, CBC #### [address] ANTICARDIOLIPIN AB (SELINA) IGG on 06-09-2022 Anticardiolipin Ab,IgG,Qn <9 Normal 0-14 [facility] Comment on above: Result Comment: Nega tive: <15 Indeterminate: 15 - 20 Low-Med Positive: >20 - 80 High Positive: >80 Performed By: #### C ARDLIP #### [facility] [address] [place] [address] Dr. Allison Neely CBC AUTO DIFFon 06-06-2022 BASO # 0.0 103/ul Normal 0.0-0.1 [facility] Comment on above: Performed By: #### C BC #### [facility] [address] [place] [address] Dr. Allison Neely Basophils/100 WBC (Bld) 0.5 % Normal 0.2-2.0 [facility] Comment on above: Performed By: #### C BC #### [facility] [address] [place] [address] Dr. Allison Neely EO # 0.1 103/ul Normal 0.0-0.7 [facility] Comment on above: Performed By: #### C BC #### [facility] [address] [place] [address] Dr. Allison Neely Eosinophils/100 WBC (Bld) 0.9 % Normal 0.9-7.0 [facility] Comment on above: Performed By: #### C BC #### [facility] [address] [place] [address] Dr. Allison Neely Erythrocyte distribution width (RBC) [Ratio] 13.7 % Normal 11.0-15.0 [facility] Comment on above: Performed By: #### C BC #### [facility] [address] [place] [address] Dr. Allison Neely Hematocrit (Bld) [Volume fraction] 41.8 % Normal 36.0-48.0 [facility] Comment on above: Performed By: #### C BC #### [facility] [address] [place] [address] Dr. Allison Neely Hemoglobin (Bld) [Mass/Vol] 13.0 g/dL Normal 12.0-16.0 [facility] Comment on above: Performed By: #### C BC #### [facility] [address] [place] [address] Dr. Allison Neely IG # 0.01 10e3/ul Normal 0.00-0.03 [facility] Comment on above: Performed By: #### C BC #### [facility] [address] [place] [address] Dr. Allison Neely IG % 0.2 % Normal 0.0-0.5 [facility] Comment on above: Performed By: #### C BC #### [facility] [address] [place] [address] Dr. Allison Neely LYMPH # 1.7 103/ul Normal 1.2-3.8 [facility] Comment on above: Performed By: #### C BC #### [facility] [address] [place] [address] Dr. Allison Neely Lymphocytes/100 WBC (Bld) 30.5 % Normal 20.5-60.0 [facility] Comment on above: Performed By: #### C BC #### [facility] [address] [place] [address] Dr. Allison Neely MANUAL DIFF REQ NO Normal [facility] Comment on above: Performed By: #### C BC #### [facility] [address] [place] [address] Dr. Allison Neely MCH (RBC) [Entitic mass] 29.7 pg Normal 26.7-34.0 [facility] Comment on above: Performed By: #### C BC #### [facility] [address] [place] [address] Dr. Allison Neely MCHC (RBC) [Mass/Vol] 31.1 g/dL Normal 29.9-35.2 [facility] Comment on above: Performed By: #### C BC #### [facility] [address] [place] [address] Dr. Allison Neely MCV (RBC) [Entitic vol] 95.7 fL Normal 81.0-99.0 [facility] Comment on above: Performed By: #### C BC #### [facility] [address] [place] [address] Dr. Allison Neely MONO # 0.3 103/ul Normal 0.3-0.8 [facility] Comment on above: Performed By: #### C BC #### [facility] [address] [place] [address] Dr. Allison Neely Monocytes/100 WBC (Bld) 5.1 % Normal 1.7-12.0 [facility] Comment on above: Performed By: #### C BC #### [facility] [address] [place] [address] Dr. Allison Neely NEUT # 3.5 103/ul Normal 1.4-6.5 [facility] Comment on above: Performed By: #### C BC #### [facility] [address] [place] [address] Dr. Allison Neely Neutrophils/100 WBC (Bld) 62.8 % Normal 43.0-75.0 [facility] Comment on above: Performed By: #### C BC #### [facility] [address] [place] [address] Dr. Allison Neely Platelet mean volume (Bld) [Entitic vol] 12.0 fL Normal 9.5-13.5 [facility] Comment on above: Performed By: #### C BC #### [facility] [address] [place] [address] Dr. Allison Neely PLT 274 103/ul Normal 150-450 [facility] Comment on above: Performed By: #### C BC #### [facility] [address] [place] [address] Dr. Allison Neely RBC 4.37 106/ul Normal 4.20-5.40 [facility] Comment on above: Performed By: #### C BC #### [facility] [address] [place] [address] Dr. Allison Neely WBC 5.6 103/ul Normal 4.0-11.0 [facility] Comment on above: Performed By: #### C BC #### [facility] [address] [place] [address] Dr. Allison Neely PROF 14(COMP METB)on 023 Albumin [Mass/Vol] 4.0 g/dL Normal 3.4-5.0 [facility] Comment on above: Performed By: #### C MP #### [facility] [address] [place] [address] Dr. Allison Neely Albumin/Globulin [Mass ratio] 1.3 {ratio} Normal [facility] Comment on above: Performed By: #### C MP #### [facility] [address] [place] [address] Dr. Allison Neely ALP [Catalytic activity/Vol] 103 U/L Normal 46-116 [facility] Comment on above: Performed By: #### C MP #### [facility] [address] [place] [address] Dr. Allison Neely ALT [Catalytic activity/Vol] 69 U/L Critically high 14-59 [facility] Comment on above: Performed By: #### C MP #### [facility] [address] [place] [address] Dr. Allison Neely Anion gap [Moles/Vol] 12.8 mmol/L Normal [facility] Comment on above: Performed By: #### C MP #### [facility] [address] [place] [address] Dr. Allison Neely AST [Catalytic activity/Vol] 30 U/L Normal 15-37 [facility] Comment on above: Performed By: #### C MP #### [facility] [address] [place] [address] Dr. Allison Neely Bilirubin [Mass/Vol] 0.4 mg/dL Normal 0.2-1.0 [facility] Comment on above: Performed By: #### C MP #### [facility] [address] [place] [address] Dr. Allison Neely Calcium [Mass/Vol] 9.3 mg/dL Normal 8.5-10.1 [facility] Comment on above: Performed By: #### C MP #### [facility] [address] [place] [address] Dr. Allison Neely Chloride [Moles/Vol] 101 mmol/L Normal 98-107 [facility] Comment on above: Performed By: #### C MP #### [facility] [address] [address] [address] Allison Neely CO2 [Moles/Vol] 29.2 mmol/L Normal 21.0-32.0 [facility] Comment on above: Performed By: #### C MP #### [facility] [address] [address] [address] Allison Neely Creatinine [Mass/Vol] 0.99 mg/dL Normal 0.55-1.02 [facility] Comment on above: Performed By: #### C MP #### [facility] [address] [place] [address] Dr. Allison Neely EGFR-AF URUGUAYAN >60 Normal >=60 [facility] Comment on above: Performed By: #### C MP #### [facility] [address] [place] [address] Dr. Allison Neely EGFR-NON AF URUGUAYAN 58 mL/min/1.73m2 Critically low >=60 [facility] Comment on above: Performed By: #### C MP #### [facility] [address] [place] [address] Dr. Allison Neely Globulin (S) [Mass/Vol] 3.0 g/dL Normal [facility] Comment on above: Performed By: #### C MP #### [facility] [address] [place] [address] Dr. Allison Neely Glucose [Mass/Vol] 157 mg/dL Critically high 74-106 [facility] Comment on above: Performed By: #### C MP #### [facility] [address] [address] [address] Allison Neely Potassium [Moles/Vol] 4.0 mmol/L Normal 3.5-5.1 [facility] Comment on above: Performed By: #### C MP #### [facility] [address] [place] [address] Dr. Allison Neely Protein [Mass/Vol] 7.0 g/dL Normal 6.4-8.2 [facility] Comment on above: Performed By: #### C MP #### [facility] [address] [address] [address] Allison Neely Sodium [Moles/Vol] 139 mmol/L Normal 136-145 [facility] Comment on above: Performed By: #### C MP #### [facility] [address] [address] [address] Allison Neely Urea nitrogen [Mass/Vol] 26.0 mg/dL Critically high 7.0-18 .0 [facility] Comment on above: Performed By: #### C MP #### [facility] [address] [address] [address] Allison Neely Urea nitrogen/Creatinine [Mass ratio] 26.3 mg/mg Normal [facility] Comment on above: Performed By: #### C MP #### [facility] [address] [place] [address] Dr. Allison Neely ANTICARDIOLIPIN AB (SELINA) IGG on 12-26-2021 Anticardiolipin Ab,IgG,Qn <9 Normal 0-14 [facility] Comment on above: Result Comment: Nega tive: <15 Indeterminate: 15 - 20 Low-Med Positive: >20 - 80 High Positive: >80 Performed By: #### C ARDLIP #### [facility] [address] [place] [address] Dr. Allison Neely PAP ACOG PANEL 2: 30 to 65on 08-29-2021 . . Normal [facility] Comment on above: Result Comment: Perf ormed at: WB Performed By: #### [id number] #### [facility] [address] [place] [address] Dr. Allison Neely Age Gdln ACOG Testing 30-65 Normal [facility] Comment on above: Performed By: #### [id number] #### [facility] [address] [place] [address] Dr. Allison Neely DIAGNOSIS: Comment Normal [facility] Comment on above: Result Comment: NEGA TIVE FOR INTRAEPITHELIAL LESION OR MALIGNANCY. CELLULAR CHANGES ASSOCIATED WITH ATROPHY ARE PRESENT. Performed at: WB Performed By: #### [id number] #### [facility] [address] [place] [address] Dr. Allison Neely HPV Aptima Negative Normal Negative [facility] Comment on above: Result Comment: This nucleic acid amplification test detects fourteen high-risk HPV types (16,18,31,33,35,39,45,51,52,56,58,59,66,68) without differentiation. Performed at: =G Performed By: #### [id number] #### [facility] [address] [place] [address] Dr. Allison Neely Methodology: Comment Normal [facility] Comment on above: Result Comment: This liquid based ThinPrep(R) pap test was screened with the use of an image guided system. Performed at: WB Performed By: #### [id number] #### [facility] [address] [place] [address] Dr. Allison Neely Note: Comment Normal [facility] Comment on above: Result Comment: The Pap smear is a screening test designed to aid in the detection of premalignant and malignant conditions of the uterine cervix. It is not a diagnostic procedure and should not be used as the sole means of detecting cervical cancer. Both false-positive and false-negative reports do occur. . Performed at: WB Performed By: #### [id number] #### [facility] [address] [place] [address] Dr. Allison Neely Performed by: Comment Normal [facility] Comment on above: Result Comment: Nuno Solis, Cashier Clerk (ASCP) Performed at: WB Performed By: #### [id number] #### [facility] [address] [place] [address] Dr. Allison Neely Specimen adequacy: Comment Normal [facility] Comment on above: Result Comment: Sati sfactory for evaluation. Endocervical component may not be distinguished in cases of atrophy. Performed at: WB Performed By: #### [id number] #### [facility] [address] [place] [address] Dr. Allison Neely Activated partial thrombopla stin time (aPTT) in platelet poor plasma by coagulation aOrdered By: Anali Card on 08-26-2021 aPTT Coag (PPP) [Time] 33.9 s 25.1-36.5 [facility] Albumin [Mass/volume] in Ser um or PlasmaOrdered By: Anali Card on 08-26-2021 Albumin [Mass/Vol] 4.0 g/dL [facility] Albumin/Protein.total in 24 hour Urine by ElectrophoresisOrdered By: Anali Card on 08-26-2021 Albumin Elph (24H U) [Mass fraction] 22.6 % [facility] Automated erythrocytes count in urine sediment (number/area)Ordered By: Anali Card on 08-26-2021 RBC Auto (Urine sed) [#/Area] 0-1 [HPF] [facility] Automated leukocytes count i n urine sediment (number/area)Ordered By: Anali Card on 08-26-2021 WBC Auto (Urine sed) [#/Area] 0-1 [HPF] [facility] Basophils Auto (Bld) [#/Vol] Ordered By: Anali Card on 08-26-2021 Basophils (Bld) [#/Vol] 0.0 10*3/uL 0.0-0.2 [facility] Basophils/100 WBC Auto (Bld) Ordered By: Anali Card on 08-26-2021 Basophils/100 WBC (Bld) 0.8 % [facility] Bilirubin Test strip Ql (U)O rdered By: Anali Card on 08-26-2021 Bilirubin Ql (U) Negative Negative [facility] Blood hemoglobin measurement (mass/volume)Ordered By: Anali Card on 08-26-2021 Hemoglobin (Bld) [Mass/Vol] 13.5 g/dL 11.8-15.4 [facility] Blood leukocytes automated c ount (number/volume)Ordered By: Anali Card on 08-26-2021 WBC (Bld) [#/Vol] 3.3 10*3/uL 4.5-11.0 [facility] Body fluid albumin measureme nt (mass/volume)Ordered By: Anali Card on 08-26-2021 Albumin (Body fld) [Mass/Vol] 4.3 g/dL 3.2-5.5 [facility] Color Auto (U)Ordered By: Venkat graves Kyaw on 08-26-2021 Color (U) Yellow Yellow [facility] Creatine kinase [Enzymatic a ctivity/volume] in Serum or PlasmaOrdered By: Anali Card on 08-26-2021 CK [Catalytic activity/Vol] 137 U/L 22-269 [facility] Creatinine and Glomerular fi ltration rate.predicted panel (S/P/Bld)Ordered By: Anali Card on 08-26-2021 Creatinine [Mass/Vol] 0.91 mg/dL 0.44-1.03 [facility] Dilute Morgan's viper venom timeOrdered By: Anali Card on 08-26-2021 dRVVT Coag (PPP) [Time] 39.0 s [facility] Eosinophils Auto (Bld) [#/Vo l]Ordered By: Anali Card on 08-26-2021 Eosinophils (Bld) [#/Vol] 0.1 10*3/uL 0.0-0.45 [facility] Eosinophils/100 WBC Auto (Bl d)Ordered By: Anali Card on 08-26-2021 Eosinophils/100 WBC (Bld) 4.2 % [facility] Erythrocyte distribution wid th Auto (RBC) [Ratio]Ordered By: Anali Card on 08-26-2021 Erythrocyte distribution width (RBC) [Ratio] 13.6 % 11.9-15.3 [facility] Erythrocyte sedimentation ra te by Photometric methodOrdered By: Anali Card on 08-26-2021 ESR Photometric method (Bld) [Velocity] 9 mm/hr 0-29 [facility] Estimated glomerular filtrat ion rate (GFR) non- AmericanOrdered By: Anali Card on 08-26-2021 GFR/1.73 sq M.predicted among non-blacks MDRD (S/P/Bld) [Vol rate/Area] > 60 mL/Min [facility] Gamma globulin/Protein.total in 24 hour Urine by ElectrophoresisOrdered By: Anali Card on 08-26-2021 Gamma globulin Elph (24H U) [Mass fraction] 16.7 % [facility] Globulin Calc (S) [Mass/Vol] Ordered By: Anali Card on 08-26-2021 Globulin (S) [Mass/Vol] 2.4 g/dL F [facility] Hematocrit Auto (Bld) [Volum e fraction]Ordered By: Anali Card on 08-26-2021 Hematocrit (Bld) [Volume fraction] 39.9 % 34.0-46.4 [facility] Hepatitis B virus surface Ag [Presence] in Serum or Plasma by ImmunoassayOrdered By: Anali Card on 08-26-2021 HBV surface Ag IA Ql Negative Negative [facility] Hepatitis C virus RNA [Prese nce] in Serum or Plasma by MALIKA with probe detectionOrdered By: Anali Card on 08-26-2021 HCV RNA MALIKA+probe Ql N/A [facility] IgA [Mass/volume] in Serum o r PlasmaOrdered By: Anali Card on 08-26-2021 IgA [Mass/Vol] 103 mg/dL [facility] IgG [Mass/volume] in Serum o r PlasmaOrdered By: Anali Card on 08-26-2021 IgG [Mass/Vol] 617 mg/dL [facility] IgM [Mass/volume] in Serum o r PlasmaOrdered By: Anali Card on 08-26-2021 IgM [Mass/Vol] 226 mg/dL [facility] Comment on above: Performed at: [facility] [address] [id number] Ore Dryer: Prakash Ballesteros PhD, Phone: [phone] Immunofixation for UrineOrde red By: Anali Card on 08-26-2021 Interpretation Immunofixation (U) [Interp] See comment [facility] Comment on above: No monoclonality det ected. Performed at: [facility] [address] [id number] Ore Dryer: Prakash Ballesteros PhD, Phone: [phone] Ketones Auto test strip (U) [Mass/Vol]Ordered By: Anali Card on 08-26-2021 Ketones (U) [Mass/Vol] Negative Negative [facility] - CoagulationOrde red By: Anali Card on 08-26-2021 PT Coag (PPP) [Time] 11.1 s 9.0-12.9 [facility] - Hematology and Cell countsOrdered By: Anali Card on 08-26-2021 Nucleated RBC/100 WBC (Bld) [Ratio] 0.1 % 0-0.5 [facility] - UrinalysisOrder ed By: Anali Card on 08-26-2021 Hyaline casts LM Ql (Urine sed) 0-8 [LPF] [facility] Lupus anticoagulant [Interpr etation] in Platelet poor plasmaOrdered By: Anali Card on 08-26-2021 Lupus anticoagulant (PPP) [Interp] Comment: [facility] Comment on above: No lupus anticoagula nt was detected. Performed at: [facility] [id number] Ore Dryer: Amanda Olmedo MD, Phone: [phone] Lymphocytes Auto (Bld) [#/Vo l]Ordered By: Anali Card on 08-26-2021 Lymphocytes (Bld) [#/Vol] 1.2 10*3/uL 1.00-4.8 [facility] Lymphocytes/100 WBC Auto (Bl d)Ordered By: Anali Card on 08-26-2021 Lymphocytes/100 WBC (Bld) 37.9 % [facility] MCH Auto (RBC) [Entitic mass ]Ordered By: Anali Card on 08-26-2021 MCH (RBC) [Entitic mass] 30.7 pg 24.7-34.3 [facility] MCHC Auto (RBC) [Mass/Vol]Or dered By: Anali Card on 08-26-2021 MCHC (RBC) [Mass/Vol] 33.8 g/dL 32.0-35.0 [facility]ir [facility] MCV Auto (RBC) [Entitic vol] Ordered By: Anali Card on 08-26-2021 MCV (RBC) [Entitic vol] 90.6 fL 80-[address] [facility] Monocytes Auto (Bld) [#/Vol] Ordered By: Anali Card on 08-26-2021 Monocytes (Bld) [#/Vol] 0.3 10*3/uL 0.0-0.8 [facility] Monocytes/100 WBC Auto (Bld) Ordered By: Anali Lalrow on 08-26-2021 Monocytes/100 WBC (Bld) 8.5 % F [facility] Neutrophils Auto (Bld) [#/Vo l]Ordered By: Anali Lalrow on 08-26-2021 Neutrophils (Bld) [#/Vol] 1.6 10*3/uL 1.8-7.7 [facility] Neutrophils/100 WBC Auto (Bl d)Ordered By: Anali Card on 08-26-2021 Neutrophils/100 WBC (Bld) 48.6 % [facility] Nitrite Test strip Ql (U)Ord ered By: Analigardenia Card on 08-26-2021 Nitrite Ql (U) Negative Negative [facility] No Panel InformationOrdered By: Anali Card on 08-26-2021 Estimated GFR () > 60 mL/Min [facility] Comment on above: GFR estimated refere nce range: According to KDOQI guidelines, <60 ml/min/1.73m2 is sufficient to diagnose a patient with chronic kidney disease. Hepatitis B Core Total Antibody Negative Negative [facility] Comment on above: Performed at: [facility] [address] [id number] Ore Dryer: Prakash Ballesteros PhD, Phone: [phone] Hepatitis C RNA Comment N/A F [facility] Creatinine Clearance (Chem N/A [facility] Protein Electrophoresis M-Shawn Not observed g/dL Not Observed [facility] Protein Electrophoresis Note See comment [facility] Comment on above: Protein electrophore sis scan will follow via computer, mail, or financial services professional delivery. Serum Immunofixation See comment [facility] Comment on above: No monoclonality det ected. Urine Random Prot Electrophor Note See comment [facility] Comment on above: Protein electrophore sis scan will follow via computer, mail, or financial services professional delivery. Performed at: [facility] [address] [id number] Ore Dryer: Prakash Ballesteros PhD, Phone: [phone] Platelet mean volume Auto (B ld) [Entitic vol]Ordered By: Anali Card on 08-26-2021 Platelet mean volume (Bld) [Entitic vol] 9.9 fL 6.3-10.7 [facility] Platelet poor plasma interna tional normalized ratio (INR) by coagulation assay (relatOrdered By: Anlai Card on 08-26-2021 INR Coag (PPP) [Relative time] 1.0 {INR} [facility] Comment on above: INR Therapeutic Rang e [...] actual/normal Coag (PPP) [Relative time] 35.[address] [facility] Platelets Auto (Bld) [#/Vol] Ordered By: Anali Card on 08-26-2021 Platelets (Bld) [#/Vol] 243 10*3/uL 150-450 [facility] Protein Auto test strip (U) [Mass/Vol]Ordered By: Anali Card on 08-26-2021 Protein (U) [Mass/Vol] Negative Negative Fi [facility] Protein [Mass/volume] in Ser um or PlasmaOrdered By: Anali Card on 08-26-2021 Protein [Mass/Vol] 6.7 g/dL 6.1-7.9 [facility] Protein [Mass/Vol] 6.5 g/dL [facility] Protein [Mass/volume] in Uri neOrdered By: Anali Card on 08-26-2021 Protein (U) [Mass/Vol] 9.0 mg/dL Not Estab. Fi [facility] Protein.monoclonal/Protein.t otal in 24 hour Urine by ElectrophoresisOrdered By: Anali Card on 08-26-2021 Protein.monoclonal Elph (24H U) [Mass fraction] Not observed % Not Observed [facility] RBC Auto (Bld) [#/Vol]Ordere d By: Anali Card on 08-26-2021 RBC (Bld) [#/Vol] 4.40 10*6/uL 3.60-5.00 [facility] Reagin Ab [Presence] in Seru m by RPROrdered By: Anali Card on 08-26-2021 Reagin Ab RPR Ql (S) Non-Reactive Non Reactive [facility] Comment on above: Performed at: [facility] [employer] [address] [address] Ore Dryer: Prakash Ballesteros PhD, Phone: [phone] Serum angiotensin converting enzyme (MARC) measurementOrdered By: Anali Card on 08-26-2021 Angiotensin converting enzyme [Catalytic activity/Vol] 33 U/L [facility] Comment on above: Performed at: [facility] [address] [id number] Ore Dryer: Prakash Ballesteros PhD, Phone: [phone] Serum globulin measurement ( mass/volume)Ordered By: Anali Card on 08-26-2021 Globulin (S) [Mass/Vol] 2.5 g/dL F [facility] Serum hepatitis B virus surf marc antibody detectionOrdered By: Anali Card on 08-26-2021 HBV surface Ab Ql (S) Reactive [facility] Comment on above: Non Reactive: Incons istent with immunity, less than 10 mIU/mL Reactive: Consistent with immunity, greater than 9.9 mIU/mL Serum or plasma C reactive p rotein measurement (mass/volume)Ordered By: Anali Card on 08-26-2021 CRP [Mass/Vol] 0.5 mg/dL 0.0-1.0 [facility] Serum or plasma alanine shell otransferase measurement without P-5'-P (enzymatic activiOrdered By: Anali Card on 08-26-2021 ALT No additional P-5'-P [Catalytic activity/Vol] 37 U/L 10-60 [facility] Serum or plasma albumin/glob ulin mass ratioOrdered By: Anali Card on 08-26-2021 Albumin/Globulin [Mass ratio] 1.8 {ratio} [facility] Albumin/Globulin [Mass ratio] 1.6 {ratio} [facility] Serum or plasma alkaline kiesha sphatase measurement (enzymatic activity/volume)Ordered By: Anali Card on 08-26-2021 ALP [Catalytic activity/Vol] 41 U/L 32-92 [facility] Serum or plasma alpha 1 glob ulin measurement by electrophoresis (mass/volume)Ordered By: Anali Card on 08-26-2021 Alpha 1 globulin Elph [Mass/Vol] 0.2 g/dL [facility] Serum or plasma alpha 2 glob ulin measurement by electrophoresis (mass/volume)Ordered By: Anali Card on 08-26-2021 Alpha 2 globulin Elph [Mass/Vol] 0.6 g/dL [facility] Serum or plasma aspartate am inotransferase measurement (enzymatic activity/volume)Ordered By: Anali Card on 08-26-2021 AST [Catalytic activity/Vol] 26 U/L 10-42 [facility] Serum or plasma beta globuli n measurement by electrophoresis (mass/volume)Ordered By: Anali Card on 08-26-2021 Beta globulin Elph [Mass/Vol] 1.0 g/dL [facility] Serum or plasma calcium lenka urement (mass/volume)Ordered By: Anali Card on 08-26-2021 Calcium [Mass/Vol] 9.6 mg/dL 8.2-10.2 [facility] Serum or plasma chloride bob surement (moles/volume)Ordered By: Anali Card on 08-26-2021 Chloride [Moles/Vol] 105 mmol/L 95-114 [facility] Serum or plasma gamma globul in measurement by electrophoresis (mass/volume)Ordered By: Anali Card on 08-26-2021 Gamma globulin Elph [Mass/Vol] 0.7 g/dL [facility] Serum or plasma glucose lenka urement (mass/volume)Ordered By: Anali Card on 08-26-2021 Glucose [Mass/Vol] 108 mg/dL 70-100 [facility] Comment on above: ADA recommended [...] 08-26-2021 HCV Ab IA Ql See comment [facility] Comment on above: Negative Not infected with HCV, unless recent infection is suspected or other evidence exists to indicate HCV infection. Effective September 02, 2021 HCV Antibody reflex to MALIKA will be made non-orderable. This will affect any Custom Profile that includes [id number] HCV Antibody reflex to MALIKA. [facility] offers order code [id number] HCV Antibody RFX to Quant PCR as an alternative. Performed at: [address] [id number] Ore Dryer: Prakash Ballesteros PhD, Phone: [phone] Serum or plasma hepatitis C virus antibody signal/cutoff ratio by immunoassay (relatiOrdered By: Anali Card on 08-26-2021 HCV Ab Signal/Cutoff IA [Rel units/Vol] <0.1 s/co ratio [facility] Serum or plasma potassium me asurement (moles/volume)Ordered By: Anali Crad on 08-26-2021 Potassium [Moles/Vol] 4.5 mmol/L 3.5-5.1 [facility] Serum or plasma sodium measu rement (moles/volume)Ordered By: Anali Card on 08-26-2021 Sodium [Moles/Vol] 142 mmol/L 136-146 [facility] Serum or plasma thyroglobuli n antibody assay (units/volume)Ordered By: Anali Card on 08-26-2021 Thyroglobulin Ab Qn [IU]/mL [facility] Comment on above: Thyroglobulin Antibo dy measured by [employer] Methodology Performed at: [facility] [address] [id number] Ore Dryer: Prakash Ballesteros PhD, Phone: [phone] Serum or plasma thyroperoxid ase antibody assay (units/volume)Ordered By: Anali Card on 08-26-2021 TPO Ab Qn 12 [IU]/mL [facility] Comment on above: Performed at: [facility] [address] [id number] Ore Dryer: Prakash Ballesteros PhD, Phone: [phone] Serum or plasma total biliru bin measurement (mass/volume)Ordered By: Anali Card on 08-26-2021 Bilirubin [Mass/Vol] 0.5 mg/dL 0.3-1.2 [facility] Serum or plasma total carbon dioxide measurement (moles/volume)Ordered By: Anali Card on 08-26-2021 CO2 [Moles/Vol] 26.9 mmol/L 22.0-30.0 [facility] Serum or plasma urea nitroge n measurement (mass/volume)Ordered By: Anali Card on 08-26-2021 Urea nitrogen [Mass/Vol] 17 mg/dL 9-23 [facility] Specific gravity Auto test s trip (U) [Rel density]Ordered By: Anali Card on 08-26-2021 Specific gravity (U) [Rel density] 1.017 1.001-1.[address] [facility] Squamous epithelial cells de tection in urine sediment by light microscopyOrdered By: Anali Card on 08-26-2021 Epithelial cells.squamous LM Ql (Urine sed) None seen [HPF] [facility] TSH DL <= 0.005 mIU/L QnOrde red By: Anali Card on 08-26-2021 TSH Qn 1.43 m[IU]/L 0.45-5.33 [facility] TT plasOrdered By: Anali hall on 08-26-2021 Thrombin time Coag (PPP) [Time] 20.[address] [facility] Thyroxine (T4) free [Mass/vo lume] in Serum or PlasmaOrdered By: Anali Card on 08-26-2021 Free T4 [Mass/Vol] 0.77 ng/dL 0.61-1.12 [facility] Urine alpha 1 globulin/total protein by electrophoresisOrdered By: Anali Card on 08-26-2021 Alpha 1 globulin Elph (U) [Mass fraction] 7.7 % [facility] Urine alpha 2 globulin/total protein ratio by electrophoresisOrdered By: Anali Card on 08-26-2021 Alpha 2 globulin Elph (U) [Mass fraction] 15.7 % [facility] Urine bacteria detection by automated methodOrdered By: Anali Card on 08-26-2021 Bacteria Auto Ql (U) None seen None Seen [facility] Urine beta globulin measurem ent by electrophoresis (mass/volume)Ordered By: Anali Card on 08-26-2021 Beta globulin Elph (U) [Mass/Vol] 37.4 % [facility] Urine clarity by refractomet ry automatedOrdered By: Anali Card on 08-26-2021 Clarity Refractometry automated (U) Clear Clear [facility] Urine glucose measurement by automated test strip (mass/volume)Ordered By: Anali Card on 08-26-2021 Glucose Auto test strip (U) [Mass/Vol] Normal mg/dL Normal [facility] Urine hemoglobin detection b y automated test stripOrdered By: Anali Card on 08-26-2021 Hemoglobin Auto test strip Ql (U) Negative Negative [facility] Urine leukocyte esterase det ection by automated test stripOrdered By: Anali Card on 08-26-2021 Leukocyte esterase Auto test strip Ql (U) Negative Negative [facility] Urobilinogen Auto test strip (U) [Mass/Vol]Ordered By: Anali Card on 08-26-2021 Urobilinogen (U) [Mass/Vol] Normal mg/dL Normal [facility] aPTT.lupus sensitive (LA scr een)Ordered By: Anali Card on 08-26-2021 aPTT.lupus sensitive Coag (PPP) [Time] 35.[address] [facility] aPTT.lupus sensitive/aPTT.scotty pus sensitive W excess phospholipid (screen to confirm raOrdered By: Anali Kyaw on 08-26-2021 aPTT.lupus sensitive/aPTT.lupus sensitive W excess phospholipid Coag (PPP) [Ratio] 1.[address] [facility] pH Auto test strip (U)Ordere d By: Anali Lalrow on 08-26-2021 pH (U) 6.0 [pH] 5.0-9.0 [facility] Vital Signs Date Time Vital Sign Value Performing Clinician Quentini litkev 03-08-2024 14:21-0500 Blood Pressure Location Oj GONZALEZ [facility] 03-08-2024 14:21-0500 Diastolic blood pressure 72 mm[Hg] Oj GONZALEZ [facility] 03-08-2024 14:21-0500 Heart rate 72 /min Oj GONZALEZ [facility] 03-08-2024 14:21-0500 Respiratory rate 16 /min Oj GONZALEZ [facility] 03-08-2024 14:21-0500 Systolic blood pressure 112 mm[Hg] Oj GONZALEZ [facility] Encounters Encounter Date Encounter Type Care Provider Facility Start: 03-08-2024 End: 03-08-2024 ambulatory Oj GONZALEZ Facility:[facility] Start: 03-08-2024 End: 03-08-2024 Patient encounter procedure Oj GONZALEZ [facility] Start: 02-09-2024 ambulatory [facility] Start: 05-25-2023 End: 05-25-2023 ambulatory BILL SOTELO Not Available Start: 05-25-2023 End: 05-25-2023 Departed Referred Bill Sotelo Work Phone: [facility] Start: 02-12-2023 End: 02-12-2023 ambulatory Anali Card Facility:[facility] Start: 02-12-2023 End: 02-12-2023 ambulatory MD Sacha Monroy Work Phone: [facility] Work Phone: Start: 02-12-2023 End: 02-12-2023 Patient encounter procedure MD Sacha Monroy Work Phone: [facility] [address] Work Phone: Start: 06-06-2022 End: 06-07-[address] ANALI CARD Facility:[facility] Start: 12-25-2021 End: 12-26-[address] ANALI CARD Facility:[facility] Start: 09-05-2021 End: 09-05-2021 Patient encounter procedure MD Sacha Monroy Work Phone: [facility]-XRay [address] Start: 08-26-2021 End: 08-26-2021 Patient encounter procedure MD Sacha Monroy Work Phone: [facility]Lab [address] Start: 08-22-2021 End: 08-22-[address] LUCERO KUHN Facility:[facility] Procedures Date Procedure Procedure Detail Performing Clinician Start: 09-05-2021 Plain X-ray of bilat eral wrists MD Sacha Monroy Work Phone: Start: 09-05-2021 Plain X-ray of bilat eral hands MD Sacha Monroy Work Phone: Laparoscopic cholecystectomy Oj GONZALEZ Tonsillectomy Oj GONZALEZ Plan of Treatment Date Care Activity Detail Author 24 hour urine measurement [facility] Work Phone: Albumin [Mass/volume] in Serum or Plasma [facility] Work Phone: Albumin/Globulin ratio [facility] Work Phone: Angiotensin converti ng enzyme [Enzymatic activity/volume] in Serum or Plasma [facility] Work Phone: aPTT.lupus sensitive (LA screen) [facility] Work Phone: aPTT.lupus sensitive W excess phospholipid actual/Normal (normalized LA confirm) [facility] Work Phone: aPTT.lupus sensitive /aPTT.lupus sensitive W excess phospholipid (screen to confirm ra [facility] tr Work Phone: dRVVT (LA screen) [facility] Work Phone: Electrophoresis: [id number] [facility] Work Phone: Electrophoresis: [id number] [facility] Work Phone: Electrophoresis: beta-globulin [facility] Work Phone: Electrophoresis: gamma globulin [facility] Work Phone: Globulin [Mass/volume] in Serum [facility] Work Phone: Hepatitis B core antibody measurement [facility] Work Phone: Hepatitis B virus byers rface Ab [Presence] in Serum [facility] tr Work Phone: Hepatitis B virus byers rface Ag [Presence] in Serum or Plasma by Immunoassay [facility] Work Phone: Hepatitis C virus Ab Signal/Cutoff in Serum or Plasma by Immunoassay [facility] Work Phone: Hepatitis C virus RN A [Presence] in Serum or Plasma by MALIKA with probe detection [facility] Work Phone: IgA [Mass/volume] in Serum or Plasma [facility] Work Phone: IgG [Mass/volume] in Serum or Plasma [facility] Work Phone: IgM [Mass/volume] in Serum or Plasma [facility] Work Phone: Immunofixation for Urine Fir [facility] Work Phone: Lupus anticoagulant [Interpretation] in Platelet poor plasma [facility] tr Work Phone: Measurement of monoc lonal protein concentration [facility] tr Work Phone: Protein [Mass/volume] in Serum or Plasma [facility] Work Phone: Protein [Mass/volume] in Urine [facility] Work Phone: Reagin Ab [Presence] in Serum by RPR [facility] Work Phone: Serum immunofixation [facility] Work Phone: Thrombin time [facility] Work Phone: Thyroglobulin Ab [Un its/volume] in Serum or Plasma [facility] tr Work Phone: Thyroperoxidase Ab [ Units/volume] in Serum or Plasma [facility] tr Work Phone: Immunizations Immunization Date Immunization Notes Care Provider [facility] 05-30-2020 COVID-19 mRNA-1273 (Arnoldo) MD Sacha Monroy Work Phone: [facility] 05-02-2020 COVID-19 mRNA-1273 (Arnoldo) MD Sacha Monroy Work Phone: [facility] Payers Date Payer Category Payer Self-pay [id number] 1965 Unknown [id number] [id number] 1965 Unknown [id number] 1965 Unknown [id number] 1965 Unknown [id number] [id number] [id number] 1965 Unknown [id number] 2.16.8 [id number] 1959 Unknown [id number] Unknown [employer] [id number] Unknown [id number] [id number] Unknown [id number] Social History Date Type Detail Facility Start: 09-26-2020 End: 03-08-2024 Tobacco smoking status NHIS Never smoked tobacco (finding) [facility] Start: 1965 Sex Assigned At Female F [facility] Sex Assigned At Female [facility] Functional Status Date Assessment Result Facility 03-08-2024 Functional Status N/A [facility] Clinical Note 03-08-2024 Note Date & Type Note Facility 03-08-2024 Note General Surgery Offi ce/Clinic Note Chief Complaint consultation for positive Cologuard HPI Staff 58 year old female presents on consultation from Dr. Mnoroy for positive Cologuard. Denies abdominal or rectal pain. No rectal bleeding or change in bowel habits. Denies nausea or vomiting. No unexplained weight loss. Never had colonoscopy in the past. No known family history of colon cancer. History of Present Illness 58 yo female with h/o asthma, hypercholesterolemia, referred for positive Cologuard; denies change in bms or blood in stools, no abd complaints; abd operations significant for cholecystectomy; no previous colonoscopy; on baby asa and Diclofenac daily; no tobacco use; no fmhx of GI malignancy or IBD. Review of Systems PHQ Score Initial Depression Screen Score: 0 SCORE ROS - Provider Constitutional: no fever, no sweats, no weight loss. Eyes: no glasses, no blurred vision, no visual loss. ENMT: no dentures, no hoarseness, no swallowing difficulties, no hearing loss, no ear infection(s), no nose bleeds. Cardiovascular: normal blood pressure, no chest pain, regular heartbeat, no heart murmur. Respiratory: no shortness of breath, no cough, no asthma, no wheezing. Gastrointestinal: no nausea, no vomiting, no diarrhea, no constipation, no blood in stool, no change in bowel habits, no abdominal pain, no hepatitis. Genitourinary: no kidney stones, no urine infection, no dysuria. Musculoskeletal: no pain, no weakness. Skin: no changing moles, no rash, no skin lumps. Neurologic: no seizures, no epilepsy, no headache. Psychiatric: no emotional or psychiatric problem. Heme/Lymph: no bleeding problems, no anemia, no blood clots, no transfusions. Allergy/Immunologic: no swollen lymph nodes/glands, no IV drug abuse. Other: Additional ROS info: Except as noted in the above Review of Systems and in the History of Present Illness, all other systems have been reviewed and are negative or noncontributory. Physical Exam Vitals & Measurements HR: 72(Peripheral) RR: 16 BP: 112/72 HT: 69 in HT: 175.2 cm WT: 102 kg WT: 224.4 lb BMI: 33.23 HEENT: normal conjunctiva, sclera clear, no scleral icterus, EOM intact, PERRLA, oral mucosa moist without lesions. Neck: trachea midline, no mass, symmetric, no thyromegaly or nodules, no adenopathy Respiratory: lungs CTA, respirations non labored. Cardiovascular: regular rate and rhythm, no murmur, no pedal edema or varicosities. Gastrointestinal: soft, non distended, no tenderness, no masses, no palpable hernias, diastasis recti no, no hepatosplenomegaly; normal bs Lymphatic: no cervical adenopathy, no supraclavicular adenopathy. Musculoskeletal: normal gait, digits and nails without infection, nodes, cyanosis, clubbing. Skin: no rashes, no lesions, no ulcers, no subcutaneous nodules, induration. Psychiatric/Neuro: oriented to time, place, person, judgement normal, affect appropriate for age, insight intact, no focal deficits. Tests: labs reviewed, review of old records completed , Discussed surgical options, risks, and possible complications with patient. Assessment/Plan 1. Positive colorectal cancer screening using Cologuard test (R19.5: Other fecal abnormalities) plan colonoscopy under anesthesia, informed consent obtained. Follow-up No qualifying data available Problem List/Past Medical History Ongoing Allergic rhinitis Asthma BMI 33.0-33.9,adult History of DVT of lower extremity History of ovarian cyst Hypercholesterolemia Insomnia MVP (mitral valve prolapse) Obesity due to excess calories Positive colorectal cancer screening using Cologuard test Positive occult stool blood test Thyroid nodule Historical No qualifying data Procedure/Surgical History Laparoscopic cholecystectomy, Tonsillectomy. Medications aspirin 81 mg Oral EC Tab, 81 mg= 1 tab(s), Oral, Daily diclofenac sodium 100 mg ER Tab, 100 mg= 1 tab(s), Oral, Daily Multi Vitamins oral tablet, 1 tab(s), Oral, Daily traZODONE 50 mg Tab, 50 mg= 1 tab(s), Oral, Once a day (at bedtime) Ventolin HFA 90 mcg/inh Aerosol-Adpt, 2 puff(s), Inhalation, q4hr Allergies No Known Allergies No Known Medication Allergies Social History Alcohol Past. Beer, Wine, Liquor. 3-5 times per week., 03/03/2024 Substance Abuse Never., 03/03/2024 Tobacco Never (less than 100 in lifetime) Tobacco Use:. Never Smokeless Tobacco Use:., 03/08/2024 Family History COPD: Mother. Immunizations Vaccine Date Status SARS-CoV-2 (COVID-19) mRNA-1273 vaccine 05/30/2020 Recorded SARS-CoV-2 (COVID-19) mRNA-1273 vaccine 05/02/2020 Recorded [facility] Comment on above: Result Comment: Elec tronically Signed By: CARLOS ROLDAN, Oj Rodriguez\mary\Date and Time Signed: 03/08/24 14:56 EST Evaluation + Plan note Note Date & Type Note Facility Evaluation + Plan note No data available for this section [facility] Evaluation note Note Date & Type Note Facility Evaluation note No assessment information availa [facility] Work Phone: Hospital Discharge instructions Note Date & Type Note Facility Hospital Discharge instructions No data available for this section [facility] Progress note Note Date & Type Note Facility Progress note No data available for this section [facility] Family History No Family History Records Found Relationship Condition Age at Onset Recorded Date/T honey father Coronary artery disease Unknown Not Specified Diverticulitis of colon Unknown Mitral valve prolapse Unknown Advance Directives No Advanced Directives Records Found Advance Directive Response Recorded Date/ Time Advance Directives No September 24 1 9:13am Advance Directive Response Recorded Date/ Time [...] Dates Bill Sotelo Attending Provider Active Start: [facility] 2023 End: May 25, 2023 Goals (unrecognized section and content) Goals may be documented in a n alternate sectionGoals may be documented in an alternate sectionGoals may be documented in an alternate sectionGoals may be documented in an alternate section No data available for this section INFORMATION SOURCE (unrecogn ized section and content) DATE CREATED AUTHOR 06/09/2022 [facility] DATE CREATED AUTHOR AUTHOR'S ORGANIZ ATION 05/26/2023 [facility] DATE CREATED AUTHOR AUTHOR'S ORGANIZ ATION 06/23/2023 [facility] DATE CREATED AUTHOR AUTHOR'S ORGANIZ ATION 03/10/2024 [facility] FOR RECORDS PERTAINING TO PATIENTS [...] BE BASED ON THE PRIMARY CLINICAL RECORDS. [facility] [employer] [facility]. provides no warranty or guarantee of the accuracy or completeness of information in this document.
== END 2024-03-24 08:33 | disposition home or self-care (01) ==
LOC: PST 08:32
PROVIDERS: PCP Family Medicine; Visit Provider Surgery
DX: Z01.818 Encounter for other preprocedural examination (principal); R19.5 Other fecal abnormalities

== ENCOUNTER 2024-04-06 08:13 | Day surgery (SDC) | payer BC, SELFPAY ==
--- NOTE | 2024-04-06 | OP_ITS ---
OPERATION DATE: 04/06/2024 PREOPERATIVE DIAGNOSIS: Positive Cologuard. POSTOPERATIVE DIAGNOSIS: Normal colonoscopy to cecum. PROCEDURE: Colonoscopy to cecum. SURGEON: Oj Sam M.D. ANESTHESIA: Monitored anesthesia care. ESTIMATED BLOOD LOSS: Zero. INDICATIONS AND CONSENT: Patient is a 58-year-old female with a positive Cologuard, presents for colorectal screening. Indications, risks, benefits, alternatives of proceeding with colonoscopy were explained extensively to the patient, including the risks of bleeding, colon perforation or anesthetic complications. All of her questions were answered. Informed consent was obtained. PROCEDURE: Patient brought to the operating room, placed in the left lateral decubitus position. Monitored anesthesia care was provided. Rectal exam was performed which revealed no masses or blood. The scope was inserted into the anal canal. Under direct visualization was advanced. There was noted to be a good prep. Upon withdrawal of the scope, mucosal surfaces were carefully examined. There were no mass lesions or polyps. No inflammatory changes or ulcerations. No significant diverticulosis. The scope was retroflexed in the anal canal. There was no significant hemorrhoidal disease. Scope was then withdrawn. Patient tolerated procedure well, was sent to recovery room in good condition. Following up screening colonoscopy should be in 10 years. CC: Sacha Monroy M.D. [facility]
[2024-04-06 08:20] VITALS: BP 150/87; PULSE 92; TEMP 36.1; O2SAT 98; BMI 32.3
--- OUTSIDE RECORDS SUMMARY | 2024-04-06 08:32 | XMS_ITS | CCD ---
Author Organization [facility] Care Team Providers Care Regional Director Name Role Phone MD Sacha Monroy Primary Care Provider [phone] MD Vishal Card Attending Provider KYAW, DR [...] Unavailable MD Sacha Monroy Primary Care Provider [phone] MD Anali Card Attending Provider BILL SOTELO Attending Unavailable Bill Sotelo Attending Provider Bill Sotelo Attending Unavailable Bill Sotelo Admitting Unavailable Anali Card Attending Unavailable Anali Card Admitting Unavailable Sacha oMnroy Primary Care Unavailable Sacha Monroy Primary Care Physician Oj GONZALEZ Attending Unavailable Sacha Monroy Referring Unavailable Allergies Allergy Classification Reported Allergen(s) Allergy Type Date of Onset Reaction(s) Facility (1 source) No Known Medication Allergies; Translations: [No Known Medication Allergies] Propensity to adverse reactions (disorder) [facility] Repository Medications Current Medications Medication Drug [...] 06-06-19 Chronic Other aftercare (1 source) Other alf (current) drug therapy; Translations: [[employer] CURRENT DRUG THERAPY] Onset: 06-08-19 Episodic Other [...] for choosing us for your care. Normal [facility] Albino 05-25-2023 L Specimen: [id number] Received: 05/26/23 Status: MARIELA Mcgrath Num: [id number] Spec Type: Surgical Subm Dr: Bill Sotelo Tissues: A Cervical Polyp (CERVICAL POLYP) Procedures: HE/2, Gross/Micro L4 Age/ Patient Sex Location Account Attending Physician Juan Carlos Ogden 57/F LABE[place] [id number] Bill Sotelo SPEC NUM: [id number] RECD: 05/26/23 STATUS: MARIELA MCGRATH NUM: [id number] DARIUS: 05/25/23- DR: Bill Sotelo ENTERED: 05/26/23 [facility] DR: Anali,Lab SPEC TYPE: Surgical DEPT: A[facility]LSO [...] in one cassette labeled A1. CPT Codes 21768 Specimen: [id number] Received: 05/26/23 Status: MARIELA Alcides Num: [id number] Spec Type: Surgical Subm Dr: Bill Sotelo Tissues: A Cervical Polyp (CERVICAL POLYP) Procedures: HE/2, Gross/Micro L4 Patient: Juan Carlos Ogden [id number] (Continued) Signed (signature on file) Hero Neely MD 05/27/[address] [facility] Alanine aminotransferase [En zymatic activity/volume] in Serum or PlasmaOrdered By: Anali Card on 02-12-2023 ALT [Catalytic activity/Vol] 70 U/L High 7-[address] [facility] Comment on above: Performed By: #### C RONNY, CBC #### [facility] [address] [place] [address] Albumin [Mass/volume] in Ser um or Plasma by Bromocresol green (BCG) dye binding methoOrdered By: Anali Card on 02-12-2023 Albumin BCG dye [Mass/Vol] 4.3 g/dL 3.5-5.[address] [facility] Alkaline phosphatase [Enzyma tic activity/volume] in Serum or PlasmaOrdered By: Anali Card on 02-12-2023 ALP [Catalytic activity/Vol] 80 U/L Normal 34-[address] [facility] Comment on above: Result Comment: PERF ORMED BY: [place] [address] PATHOLOGIST GENERATOR TECHNICIAN OLGA LIDIA CORONA M.D. Performed By: #### C MP, CBC #### [facility] [address] [place] [address] Aspartate aminotransferase [ Enzymatic activity/volume] in Serum or PlasmaOrdered By: Anali Lalrow on 02-12-2023 AST [Catalytic activity/Vol] 36 U/L Normal 13-[address] [facility] Comment on above: Performed By: #### C MP, CBC #### [address] Automated basophil %Ordered By: Anali Kyaw on 02-12-2023 Basophils/100 WBC (Bld) 0.4 % Normal . [facility] Comment on above: Performed By: #### C MP, CBC #### [address] Automated basophil countOrde red By: Anali Kyaw on 02-12-2023 Basophils (Bld) [#/Vol] 0.0 10*3/uL Normal 0.0-0.[address] [facility] Comment on above: Result Comment: PERF ORMED BY: [place] [address] PATHOLOGIST GENERATOR TECHNICIAN OLGA LIDIA CORONA M.D. Performed By: #### C MP, CBC #### [address] Automated blood monocyte cou ntOrdered By: Analigardenia Card on 02-12-2023 Monocytes (Bld) [#/Vol] 0.4 10*3/uL Normal 0.0-0.[address] [facility] Comment on above: Performed By: #### C MP, CBC #### [address] Automated eosinophil %Ordere d By: Analigardenia Card on 02-12-2023 Eosinophils/100 WBC (Bld) 2.1 % Normal . [facility] Comment on above: Performed By: #### C MP, CBC #### [address] Automated eosinophil countOr dered By: Analigardenia Card on 02-12-2023 Eosinophils (Bld) [#/Vol] 0.1 10*3/uL Normal 0.0-0.[address] [facility] Comment on above: Performed By: #### C MP, CBC #### [facility] [address] Automated monocyte %Ordered By: Anali Lalrow on 02-12-2023 Monocytes/100 WBC (Bld) 8.2 % Normal . [facility] Comment on above: Performed By: #### C MP, CBC #### [facility] [address] Automated neutrophil %Ordere d By: Anali Lalrow on 02-12-2023 Neutrophils/100 WBC (Bld) 58.3 % Normal . [facility] Comment on above: Performed By: #### C MP, CBC #### [facility] [address] Bilirubin.total [Mass/volume ] in Serum or PlasmaOrdered By: Anali Kyaw on 02-12-2023 Bilirubin [Mass/Vol] 0.5 mg/dL Normal 0.3-1.0 [facility] Comment on above: Performed By: #### C MP, CBC #### [facility] [address] [place] [address] [place] Calcium [Mass/volume] in Ser um or PlasmaOrdered By: Anali Kyaw on 02-12-2023 Calcium [Mass/Vol] 9.2 mg/dL Normal 8.6-10.3 [facility] Comment on above: Performed By: #### C MP, CBC #### [facility] [address] [place] [address] [place] Carbon dioxide, total [Moles /volume] in Serum or PlasmaOrdered By: Anali Kyaw on 02-12-2023 CO2 [Moles/Vol] 28.6 mmol/L Normal 21.0-31.0 [facility] Comment on above: Performed By: #### C MP, CBC #### [facility] [address] [place] [address] [place] Chloride [Moles/volume] in S tex or PlasmaOrdered By: Anali Kyaw on 02-12-2023 Chloride [Moles/Vol] 106 mmol/L Normal 98-107 [facility] Comment on above: Performed By: #### C MP, CBC #### [address] Complete Blood Count Auto Di ffon 02-12-2023 Mean Corpuscular HGB Conc 33.5 g/dL Normal 32.0-35.[address] [facility] Comment on above: Performed By: #### C MP, CBC #### [facility] [address] [place] [address] NRBC% 0.1 /100{WBC} Normal 0-0.[address] [facility] Comment on above: Performed By: #### C MP, CBC #### [address] Comprehensive Metabolic Pane albino 02-12-2023 Albumin [Mass/Vol] 4.3 g/dL Normal 3.5-5.7 [facility] Comment on above: Performed By: #### C MP, CBC #### [address] GFR/1.73 sq M.predicted MDRD (S/P/Bld) [Vol rate/Area] mL/min/{1.73_m2} Normal [facility] Comment on above: Performed By: #### C MP, CBC #### [address] Creatinine [Mass/volume] in Serum or PlasmaOrdered By: Anali Card on 02-12-2023 Creatinine [Mass/Vol] 0.93 mg/dL Normal 0.60-1.20 [facility] Comment on above: Performed By: #### C MP, CBC #### [address] Erythrocyte distribution wid th [Ratio] by Automated countOrdered By: Anali Card on 02-12-2023 Erythrocyte distribution width (RBC) [Ratio] 14.5 % Normal 11.9-15.[address] [facility] Comment on above: Performed By: #### C MP, CBC #### [address] Erythrocytes [#/volume] in B lood by Automated countOrdered By: Anali Lalrow on 02-12-2023 RBC (Bld) [#/Vol] 4.32 10*6/uL Normal 3.60-5.00 [facility] Comment on above: Performed By: #### C MP, CBC #### [address] Glucose [Mass/volume] in Ser um or PlasmaOrdered By: Anali Card on 02-12-2023 Glucose [Mass/Vol] 107 mg/dL High 70-100 [facility] Comment on above: ADA recommended refe rence rangeRandom Glucose Reference Range is dependent on time and content of last meal. Glucose of more than 200 mg/dL in a nonstressed, ambulatory subject supports the diagnosis of Diabetes Mellitus. Result Comment: [place] Glucose Reference Range is dependent on time and content of last meal. Glucose of more than 200 mg/dL in a nonstressed, ambulatory subject supports the diagnosis of Diabetes Mellitus. ADA recommended reference range Performed By: #### C MP, CBC #### [address] Hematocrit [Volume Fraction] of Blood by Automated countOrdered By: Anali Lalrow on 02-12-2023 Hematocrit (Bld) [Volume fraction] 39.2 % Normal 34.0-46.[address] [facility] Comment on above: Performed By: #### C MP, CBC #### [address] Hemoglobin [Mass/volume] in BloodOrdered By: Analigardenia Card on 02-12-2023 Hemoglobin (Bld) [Mass/Vol] 13.1 g/dL Normal 11.8-15.[address] [facility] Comment on above: Performed By: #### C MP, CBC #### [address] Leukocytes [#/volume] correc henry for nucleated erythrocytes in Blood by Automated counOrdered By: Anali Card on 02-12-2023 WBC corrected for nucl RBC Auto (Bld) [#/Vol] 4.9 10*3/uL 3.8-11.[address] [facility] Leukocytes [#/volume] in Blo od by Automated countOrdered By: Anali Lalrow on 02-12-2023 WBC (Bld) [#/Vol] 4.9 10*3/uL Normal 3.8-11.6 [facility] Comment on above: Performed By: #### C MP, CBC #### [facility] [address] [place] [address] [place] Lymphocytes [#/volume] in Bl ood by Automated countOrdered By: Anali Lalrow on 02-12-2023 Lymphocytes (Bld) [#/Vol] 1.5 10*3/uL Normal 1.00-4.[address] [facility] Comment on above: Performed By: #### C MP, CBC #### [address] Lymphocytes/100 leukocytes i n Blood by Automated countOrdered By: Anali Card on 02-12-2023 Lymphocytes/100 WBC (Bld) 31.0 % Normal . [facility] Comment on above: Performed By: #### C MP, CBC #### [address] MCH [Entitic mass] by Automa henry countOrdered By: Anali Lalrow on 02-12-2023 MCH (RBC) [Entitic mass] 30.4 pg Normal 24.7-34.[address] [facility] Comment on above: Performed By: #### C MP, CBC #### [address] MCHC Auto (RBC) [Mass/Vol]Or dered By: Anali Card on 02-12-2023 MCHC (RBC) [Mass/Vol] 33.5 g/dL 32.0-35.0 [facility] MCV [Entitic volume] by Auto mated countOrdered By: Anali Kyaw on 02-12-2023 MCV (RBC) [Entitic vol] 90.8 fL Normal 80-[address] [facility] Comment on above: Performed By: #### C MP, CBC #### [address] [place] [address] [place] Neutrophils [#/volume] in Bl ood by Automated countOrdered By: Anali Kyaw on 02-12-2023 Neutrophils (Bld) [#/Vol] 2.9 10*3/uL Normal 1.8-7.[address] [facility] Comment on above: Performed By: #### C MP, CBC #### [address] No Panel InformationOrdered By: Anali Card on 02-12-2023 Estimated GFR (CKD-EPI) > 60.0 mL/Min [facility] Creatinine Clearance (Chem N/A [facility] Nucleated erythrocytes [Pres ence] in Blood by Automated countOrdered By: Anali Card on 02-12-2023 Nucleated RBC Auto Ql (Bld) 0.1 /100{WBC} 0-0.[address] [facility] Platelet mean volume [Entiti c volume] in Blood by Automated countOrdered By: Anali Card on 02-12-2023 Platelet mean volume (Bld) [Entitic vol] 9.6 fL Normal 6.3-10.[address] [facility] Comment on above: Performed By: #### C MP, CBC #### [place] [address] [place] Platelets [#/volume] in Bloo d by Automated countOrdered By: Anali Card on 02-12-2023 Platelets (Bld) [#/Vol] 202 10*3/uL Normal 150-[address] [facility] Comment on above: Performed By: #### C MP, CBC #### [place] [address] [place] Potassium [Moles/volume] in Serum or PlasmaOrdered By: Anali Card on 02-12-2023 Potassium [Moles/Vol] 4.6 mmol/L Normal 3.5-5.1 [facility] Comment on above: Performed By: #### C MP, CBC #### [place] [address] [place] Protein [Mass/volume] in Ser um or PlasmaOrdered By: Anali Card on 02-12-2023 Protein [Mass/Vol] 6.6 g/dL Normal 6.4-8.9 [facility] Comment on above: Performed By: #### C MP, CBC #### [address] Serum globulin measurement b y calculation (mass/volume)Ordered By: Anali Lalrow on 02-12-2023 Globulin (S) [Mass/Vol] 2.3 g/dL Normal [facility] Comment on above: Performed By: #### C MP, CBC #### [address] Serum or plasma albumin/glob ulin mass ratioOrdered By: Anali Kyaw on 02-12-2023 Albumin/Globulin [Mass ratio] 1.9 {ratio} Normal [facility] Comment on above: Performed By: #### C MP, CBC #### [address] Serum or plasma anion gap de terminationOrdered By: Anali Lalrow on 02-12-2023 Anion gap [Moles/Vol] 11.0 mmol/L Normal 6.0-15.0 [facility] Comment on above: Performed By: #### C MP, CBC #### [address] Sodium [Moles/volume] in Ser um or PlasmaOrdered By: Anali Kyaw on 02-12-2023 Sodium [Moles/Vol] 141 mmol/L Normal 136-145 [facility] Comment on above: Performed By: #### C MP, CBC #### [address] Urea nitrogen [Mass/volume] in Serum or PlasmaOrdered By: Analigardenia Card on 02-12-2023 Urea nitrogen [Mass/Vol] 16 mg/dL Normal 7-[address] [facility] Comment on above: Performed By: #### C MP, CBC #### [address] ANTICARDIOLIPIN AB (SELINA) IGG on 06-09-2022 Anticardiolipin Ab,IgG,Qn <9 Normal 0-14 [facility] Comment on above: Result Comment: Nega tive: <15 Indeterminate: 15 - 20 Low-Med Positive: >20 - 80 High Positive: >80 Performed By: #### C ARDLIP #### [facility] [address] [place] [address] Dr. Allison Neely CBC AUTO DIFFon 06-06-2022 BASO # 0.0 103/ul Normal 0.0-0.1 [facility] Comment on above: Performed By: #### C BC #### [facility] [address] [place] [address] Dr. Allison Neely Basophils/100 WBC (Bld) 0.5 % Normal 0.2-2.0 [facility] Comment on above: Performed By: #### C BC #### [facility] [address] [place] [address] Dr. Allison Neely EO # 0.1 103/ul Normal 0.0-0.7 [facility] Comment on above: Performed By: #### C BC #### [facility] [address] [place] [address] Dr. Allison Neely Eosinophils/100 WBC (Bld) 0.9 % Normal 0.9-7.0 [facility] Comment on above: Performed By: #### C BC #### [facility] [address] [place] [address] Dr. Allison Neely Erythrocyte distribution width (RBC) [Ratio] 13.7 % Normal 11.0-15.0 [facility] Comment on above: Performed By: #### C BC #### [facility] [address] [place] [address] Dr. Allison Neely Hematocrit (Bld) [Volume fraction] 41.8 % Normal 36.0-48.0 [facility] Comment on above: Performed By: #### C BC #### [facility] [address] [place] [address] Dr. Allison Neely Hemoglobin (Bld) [Mass/Vol] 13.0 g/dL Normal 12.0-16.0 [facility] Comment on above: Performed By: #### C BC #### [facility] [address] [place] [address] Dr. Allison Neely IG # 0.01 10e3/ul Normal 0.00-0.03 [facility] Comment on above: Performed By: #### C BC #### [facility] [address] [place] [address] Dr. Allison Neely IG % 0.2 % Normal 0.0-0.5 [facility] Comment on above: Performed By: #### C BC #### [facility] [address] [place] [address] Dr. Allison Neely LYMPH # 1.7 103/ul Normal 1.2-3.8 [facility] Comment on above: Performed By: #### C BC #### [facility] [address] [place] [address] Dr. Allison Neely Lymphocytes/100 WBC (Bld) 30.5 % Normal 20.5-60.0 [facility] Comment on above: Performed By: #### C BC #### [facility] [address] [place] [address] Dr. Allison Neely MANUAL DIFF REQ NO Normal [facility] Comment on above: Performed By: #### C BC #### [facility] [address] [place] [address] Dr. Allison Neely MCH (RBC) [Entitic mass] 29.7 pg Normal 26.7-34.0 [facility] Comment on above: Performed By: #### C BC #### [facility] [address] [place] [address] Dr. Allison Neely MCHC (RBC) [Mass/Vol] 31.1 g/dL Normal 29.9-35.2 [facility] Comment on above: Performed By: #### C BC #### [facility] [address] [place] [address] Dr. Allison Neely MCV (RBC) [Entitic vol] 95.7 fL Normal 81.0-99.0 [facility] Comment on above: Performed By: #### C BC #### [facility] [address] [place] [address] Dr. Allison Neely MONO # 0.3 103/ul Normal 0.3-0.8 [facility] Comment on above: Performed By: #### C BC #### [facility] [address] [place] [address] Dr. Allison Neely Monocytes/100 WBC (Bld) 5.1 % Normal 1.7-12.0 [facility] Comment on above: Performed By: #### C BC #### [facility] [address] [place] [address] Dr. Allison Neely NEUT # 3.5 103/ul Normal 1.4-6.5 [facility] Comment on above: Performed By: #### C BC #### [facility] [address] [place] [address] Dr. Allison Neely Neutrophils/100 WBC (Bld) 62.8 % Normal 43.0-75.0 [facility] Comment on above: Performed By: #### C BC #### [facility] [address] [place] [address] Dr. Allison Neely Platelet mean volume (Bld) [Entitic vol] 12.0 fL Normal 9.5-13.5 [facility] Comment on above: Performed By: #### C BC #### [facility] [address] [place] [address] Dr. Allison Neely PLT 274 103/ul Normal 150-450 [facility] Comment on above: Performed By: #### C BC #### [facility] [address] [place] [address] Dr. Allison Neely RBC 4.37 106/ul Normal 4.20-5.40 [facility] Comment on above: Performed By: #### C BC #### [facility] [address] [place] [address] Dr. Allison Neely WBC 5.6 103/ul Normal 4.0-11.0 [facility] Comment on above: Performed By: #### C BC #### [facility] [address] [place] [address] Dr. Allison Neely PROF 14(COMP METB)on 023 Albumin [Mass/Vol] 4.0 g/dL Normal 3.4-5.0 [facility] Comment on above: Performed By: #### C MP #### [facility] [address] [place] [address] Dr. Allison Neely Albumin/Globulin [Mass ratio] 1.3 {ratio} Normal [facility] Comment on above: Performed By: #### C MP #### [facility] [address] [place] [address] Dr. Allison Neely ALP [Catalytic activity/Vol] 103 U/L Normal 46-116 [facility] Comment on above: Performed By: #### C MP #### [facility] [address] [place] [address] Dr. Allison Neely ALT [Catalytic activity/Vol] 69 U/L Critically high 14-59 [facility] Comment on above: Performed By: #### C MP #### [facility] [address] [place] [address] Dr. Allison Neely Anion gap [Moles/Vol] 12.8 mmol/L Normal [facility] Comment on above: Performed By: #### C MP #### [facility] [address] [place] [address] Dr. Allison Neely AST [Catalytic activity/Vol] 30 U/L Normal 15-37 [facility] Comment on above: Performed By: #### C MP #### [facility] [address] [place] [address] Dr. Allison Neely Bilirubin [Mass/Vol] 0.4 mg/dL Normal 0.2-1.0 [facility] Comment on above: Performed By: #### C MP #### [facility] [address] [place] [address] Dr. Allison Neely Calcium [Mass/Vol] 9.3 mg/dL Normal 8.5-10.1 [facility] Comment on above: Performed By: #### C MP #### [facility] [address] [place] [address] Dr. Allison Neely Chloride [Moles/Vol] 101 mmol/L Normal 98-107 [facility] Comment on above: Performed By: #### C MP #### [facility] [address] [address] [address] Allison Neely CO2 [Moles/Vol] 29.2 mmol/L Normal 21.0-32.0 [facility] Comment on above: Performed By: #### C MP #### [facility] [address] [address] [address] Allison Neely Creatinine [Mass/Vol] 0.99 mg/dL Normal 0.55-1.02 [facility] Comment on above: Performed By: #### C MP #### [facility] [address] [place] [address] Dr. Allison Neely EGFR-AF PERUVIAN >60 Normal >=60 [facility] Comment on above: Performed By: #### C MP #### [facility] [address] [place] [address] Dr. Allison Neely EGFR-NON AF PERUVIAN 58 mL/min/1.73m2 Critically low >=60 [facility] Comment on above: Performed By: #### C MP #### [facility] [address] [place] [address] Dr. Allison Neely Globulin (S) [Mass/Vol] 3.0 g/dL Normal [facility] Comment on above: Performed By: #### C MP #### [facility] [address] [place] [address] Dr. Allison Neely Glucose [Mass/Vol] 157 mg/dL Critically high 74-106 [facility] Comment on above: Performed By: #### C MP #### [facility] [address] [address] [address] Allison Neely Potassium [Moles/Vol] 4.0 mmol/L Normal 3.5-5.1 [facility] Comment on above: Performed By: #### C MP #### [facility] [address] [place] [address] Dr. Allison Neely Protein [Mass/Vol] 7.0 g/dL Normal 6.4-8.2 [facility] Comment on above: Performed By: #### C MP #### [facility] [address] [address] [address] Allison Neely Sodium [Moles/Vol] 139 mmol/L Normal 136-145 [facility] Comment on above: Performed By: #### C MP #### [facility] [address] [address] [address] Allison Neely Urea nitrogen [Mass/Vol] 26.0 mg/dL Critically high 7.0-18 .0 [facility] Comment on above: Performed By: #### C MP #### [facility] [address] [address] [address] Allison Neely Urea nitrogen/Creatinine [Mass ratio] 26.3 mg/mg Normal [facility] Comment on above: Performed By: #### C MP #### [facility] [address] [place] [address] Dr. Allison Neely ANTICARDIOLIPIN AB (SELINA) IGG on 12-26-2021 Anticardiolipin Ab,IgG,Qn <9 Normal 0-14 [facility] Comment on above: Result Comment: Nega tive: <15 Indeterminate: 15 - 20 Low-Med Positive: >20 - 80 High Positive: >80 Performed By: #### C ARDLIP #### [facility] [address] [place] [address] Dr. Allison Neely PAP ACOG PANEL 2: 30 to 63on 08-29-2021 . . Normal [facility] Comment on above: Result Comment: Perf ormed at: WB Performed By: #### [id number] #### [facility] [address] [place] [address] Dr. Allison Neely Age Gdln ACOG Testing 30-65 Normal [facility] Comment on above: Performed By: #### [id number] #### [facility] [address] [place] [address] Dr. Allison Neely DIAGNOSIS: Comment Normal [facility] Comment on above: Result Comment: NEGA TIVE FOR INTRAEPITHELIAL LESION OR MALIGNANCY. CELLULAR CHANGES ASSOCIATED WITH ATROPHY ARE PRESENT. Performed at: WB Performed By: #### [id number] #### [facility] [address] [place] [address] Dr. Allison Neely HPV Aptima Negative Normal Negative [facility] Comment on above: Result Comment: This nucleic acid amplification test detects fourteen high-risk HPV types (16,18,31,33,35,39,45,51,52,56,58,59,66,68) without differentiation. Performed at: =G Performed By: #### [id number] #### [facility] [address] [place] [address] Dr. Allison Neely Methodology: Comment [facility] Comment on above: Result Comment: This liquid based ThinPrep(R) pap test was screened with the use of an image guided system. Performed at: WB Performed By: #### [id number] #### [facility] [address] [place] [address] Dr. Allison Neely Note: Comment [facility] Comment on above: Result Comment: The Pap smear is a screening test designed to aid in the detection of premalignant and malignant conditions of the uterine cervix. It is not a diagnostic procedure and should not be used as the sole means of detecting cervical cancer. Both false-positive and false-negative reports do occur. . Performed at: WB Performed By: #### [id number] #### [facility] [address] [place] [address] Dr. Allison Neely Performed by: Comment [facility] Comment on above: Result Comment: Nuno Solis, Brush Stainer (ASCP) Performed at: WB Performed By: #### [id number] #### [facility] [address] [place] [address] Dr. Allison Neely Specimen adequacy: Comment [facility] Comment on above: Result Comment: Sati sfactory for evaluation. Endocervical component may not be distinguished in cases of atrophy. Performed at: WB Performed By: #### [id number] #### [facility] [address] [place] [address] Dr. Allison Neely Activated partial thrombopla stin time (aPTT) in platelet poor plasma by coagulation aOrdered By: Anali Card on 08-26-2021 aPTT Coag (PPP) [Time] 33.9 s 25.1-36.5 [facility] Albumin [Mass/volume] in Ser um or PlasmaOrdered By: Anali Card on 08-26-2021 Albumin [Mass/Vol] 4.0 g/dL [facility] Albumin/Protein.total in 24 hour Urine by ElectrophoresisOrdered By: Anali Card on 08-26-2021 Albumin Elph (24H U) [Mass fraction] 22.6 % [facility] Automated erythrocytes count in urine sediment (number/area)Ordered By: Anali Card on 08-26-2021 RBC Auto (Urine sed) [#/Area] 0-1 [HPF] [facility] Automated leukocytes count i n urine sediment (number/area)Ordered By: Anali Card on 08-26-2021 WBC Auto (Urine sed) [#/Area] 0-1 [HPF] [facility] Basophils Auto (Bld) [#/Vol] Ordered By: Anali Card on 08-26-2021 Basophils (Bld) [#/Vol] 0.0 10*3/uL 0.0-0.[address] [facility] Basophils/100 WBC Auto (Bld) Ordered By: Anali Card on 08-26-2021 Basophils/100 WBC (Bld) 0.8 % [facility] Bilirubin Test strip Ql (U)O rdered By: Anali Card on 08-26-2021 Bilirubin Ql (U) Negative Negative [facility] Blood hemoglobin measurement (mass/volume)Ordered By: Anali Card on 08-26-2021 Hemoglobin (Bld) [Mass/Vol] 13.5 g/dL 11.8-15.[address] [facility] Blood leukocytes automated c ount (number/volume)Ordered By: Anali Card on 08-26-2021 WBC (Bld) [#/Vol] 3.3 10*3/uL 4.5-11.0 [facility] Body fluid albumin measureme nt (mass/volume)Ordered By: Anali Card on 08-26-2021 Albumin (Body fld) [Mass/Vol] 4.3 g/dL 3.2-5.[address] [facility] Color Auto (U)Ordered By: Venkat graves Kyaw on 08-26-2021 Color (U) Yellow Yellow [facility] Creatine kinase [Enzymatic a ctivity/volume] in Serum or PlasmaOrdered By: Anali Card on 08-26-2021 CK [Catalytic activity/Vol] 137 U/L 22-[address] [facility] Creatinine and Glomerular fi ltration rate.predicted panel (S/P/Bld)Ordered By: Anali Card on 08-26-2021 Creatinine [Mass/Vol] 0.91 mg/dL 0.44-1.03 [facility] Dilute Morgan's viper venom timeOrdered By: Anali Card on 08-26-2021 dRVVT Coag (PPP) [Time] 39.0 s [facility] Eosinophils Auto (Bld) [#/Vo l]Ordered By: Anali Card on 08-26-2021 Eosinophils (Bld) [#/Vol] 0.1 10*3/uL 0.0-0.[address] [facility] Eosinophils/100 WBC Auto (Bl d)Ordered By: Anali Card on 08-26-2021 Eosinophils/100 WBC (Bld) 4.2 % [facility] Erythrocyte distribution wid th Auto (RBC) [Ratio]Ordered By: Anali Card on 08-26-2021 Erythrocyte distribution width (RBC) [Ratio] 13.6 % 11.9-15.[address] [facility] Erythrocyte sedimentation ra te by Photometric methodOrdered By: Anali Card on 08-26-2021 ESR Photometric method (Bld) [Velocity] 9 mm/hr 0-[address] [facility] Estimated glomerular filtrat ion rate (GFR) non- AmericanOrdered By: Anali Card on 08-26-2021 GFR/1.73 sq M.predicted among non-blacks MDRD (S/P/Bld) [Vol rate/Area] > 60 mL/Min [facility] Gamma globulin/Protein.total in 24 hour Urine by ElectrophoresisOrdered By: Anali Card on 08-26-2021 Gamma globulin Elph (24H U) [Mass fraction] 16.7 % [facility] Globulin Calc (S) [Mass/Vol] Ordered By: Anali Card on 08-26-2021 Globulin (S) [Mass/Vol] 2.4 g/dL [facility] Hematocrit Auto (Bld) [Volum e fraction]Ordered By: Anali Card on 08-26-2021 Hematocrit (Bld) [Volume fraction] 39.9 % 34.0-46.[address] [facility] Hepatitis B virus surface Ag [Presence] in Serum or Plasma by ImmunoassayOrdered By: Anali Card on 08-26-2021 HBV surface Ag IA Ql Negative Negative [facility] Hepatitis C virus RNA [Prese nce] in Serum or Plasma by MALIKA with probe detectionOrdered By: Anali Card on 08-26-2021 HCV RNA MALIKA+probe Ql N/A [facility] IgA [Mass/volume] in Serum o r PlasmaOrdered By: Anali Card on 08-26-2021 IgA [Mass/Vol] 103 mg/dL [facility] IgG [Mass/volume] in Serum o r PlasmaOrdered By: Anali Card on 08-26-2021 IgG [Mass/Vol] 617 mg/dL [facility] IgM [Mass/volume] in Serum o r PlasmaOrdered By: Anali Card on 08-26-2021 IgM [Mass/Vol] 226 mg/dL [facility] Comment on above: Performed at: [facility] [address] [id number] [employer]head Liner: Prakash Ballesteros PhD, Phone: [phone] Immunofixation for UrineOrde red By: Anali Card on 08-26-2021 Interpretation Immunofixation (U) [Interp] See comment [facility] Comment on above: No monoclonality det ected. Performed at: [facility] [address] [id number] [employer]ogshead Liner: Prakash Ballesteros PhD, Phone: [phone] Ketones Auto test strip (U) [Mass/Vol]Ordered By: Anali Card on 08-26-2021 Ketones (U) [Mass/Vol] Negative Negative [facility] - CoagulationOrde red By: Anali Card on 08-26-2021 PT Coag (PPP) [Time] 11.1 s 9.0-12.9 [facility] - Hematology and Cell countsOrdered By: Anali Card on 08-26-2021 Nucleated RBC/100 WBC (Bld) [Ratio] 0.1 % 0-0.[address] [facility] - UrinalysisOrder ed By: Anali Card on 08-26-2021 Hyaline casts LM Ql (Urine sed) 0-8 [LPF] [facility] Lupus anticoagulant [Interpr etation] in Platelet poor plasmaOrdered By: Anali Card on 08-26-2021 Lupus anticoagulant (PPP) [Interp] Comment: [facility] Comment on above: No lupus anticoagula nt was detected. Performed at: [facility] [id number] [employer]iner: Amanda Olmedo MD, Phone: [phone] Lymphocytes Auto (Bld) [#/Vo l]Ordered By: Anali Card on 08-26-2021 Lymphocytes (Bld) [#/Vol] 1.2 10*3/uL 1.00-4.[address] [facility] Lymphocytes/100 WBC Auto (Bl d)Ordered By: Anali Card on 08-26-2021 Lymphocytes/100 WBC (Bld) 37.9 % [facility] MCH Auto (RBC) [Entitic mass ]Ordered By: Anali Card on 08-26-2021 MCH (RBC) [Entitic mass] 30.7 pg 24.7-34.[address] [facility] MCHC Auto (RBC) [Mass/Vol]Or dered By: Anali Card on 08-26-2021 MCHC (RBC) [Mass/Vol] 33.8 g/dL 32.0-35.0 [facility] MCV Auto (RBC) [Entitic vol] Ordered By: Anali Card on 08-26-2021 MCV (RBC) [Entitic vol] 90.6 fL 80-[address] [facility] Monocytes Auto (Bld) [#/Vol] Ordered By: Anali Card on 08-26-2021 Monocytes (Bld) [#/Vol] 0.3 10*3/uL 0.0-0.[address] [facility] Monocytes/100 WBC Auto (Bld) Ordered By: Anali Lalrow on 08-26-2021 Monocytes/100 WBC (Bld) 8.5 % [facility] Neutrophils Auto (Bld) [#/Vo l]Ordered By: Anali Lalrow on 08-26-2021 Neutrophils (Bld) [#/Vol] 1.6 10*3/uL 1.8-7.[address] [facility] Neutrophils/100 WBC Auto (Bl d)Ordered By: Anali Card on 08-26-2021 Neutrophils/100 WBC (Bld) 48.6 % [facility] Nitrite Test strip Ql (U)Ord ered By: Analigardenia Card on 08-26-2021 Nitrite Ql (U) Negative Negative [facility] No Panel InformationOrdered By: Anali Card on 08-26-2021 Estimated GFR () > 60 mL/Min [facility] Comment on above: GFR estimated refere nce range: According to KDOQI guidelines, <60 ml/min/1.73m2 is sufficient to diagnose a patient with chronic kidney disease. Hepatitis B Core Total Antibody Negative Negative [facility] Comment on above: Performed at: [facility] [address] [id number] [employer] Liner: Prakash Ballesteros PhD, Phone: [phone] Hepatitis C RNA Comment N/A [facility] Creatinine Clearance (Chem N/A [facility] Protein Electrophoresis M-Shawn Not observed g/dL Not Observed [facility] Protein Electrophoresis Note See comment [facility] Comment on above: Protein electrophore sis scan will follow via computer, mail, or plane captain delivery. Serum Immunofixation See comment [facility] Comment on above: No monoclonality det ected. Urine Random Prot Electrophor Note See comment [facility] Comment on above: Protein electrophore sis scan will follow via computer, mail, or plane captain delivery. Performed at: [employer] [address] [id number] [employer]ogshead Liner: Prakash Ballesteros PhD, Phone: [phone] Platelet mean volume Auto (B ld) [Entitic vol]Ordered By: Anali Card on 08-26-2021 Platelet mean volume (Bld) [Entitic vol] 9.9 fL 6.3-10.[address] [facility] Platelet poor plasma interna tional normalized ratio (INR) by coagulation assay (relatOrdered By: Anali Card on 08-26-2021 INR Coag (PPP) [Relative time] 1.0 {INR} [facility] Comment on above: INR Therapeutic Rang [...] actual/normal Coag (PPP) [Relative time] 35.[address] [facility] Platelets Auto (Bld) [#/Vol] Ordered By: Anali Card on 08-26-2021 Platelets (Bld) [#/Vol] 243 10*3/uL 150-[address] [facility] Protein Auto test strip (U) [Mass/Vol]Ordered By: Anali Card on 08-26-2021 Protein (U) [Mass/Vol] Negative Negative Fi [facility] Protein [Mass/volume] in Ser um or PlasmaOrdered By: Anali Card on 08-26-2021 Protein [Mass/Vol] 6.7 g/dL 6.1-7.9 [facility] Protein [Mass/Vol] 6.5 g/dL [facility] Protein [Mass/volume] in Uri neOrdered By: Anali Card on 08-26-2021 Protein (U) [Mass/Vol] 9.0 mg/dL Not Estab. Fi [facility] Protein.monoclonal/Protein.t otal in 24 hour Urine by ElectrophoresisOrdered By: Anali Card on 08-26-2021 Protein.monoclonal Elph (24H U) [Mass fraction] Not observed % Not Observed [facility] RBC Auto (Bld) [#/Vol]Ordere d By: Anali Card on 08-26-2021 RBC (Bld) [#/Vol] 4.40 10*6/uL 3.60-5.00 [facility] Reagin Ab [Presence] in Seru m by RPROrdered By: Anali Card on 08-26-2021 Reagin Ab RPR Ql (S) Non-Reactive Non Reactive [facility] Comment on above: Performed at: [facility] [employer] [place] [address] [employer]head Liner: Prakash Ballesteros PhD, Phone: [phone] Serum angiotensin converting enzyme (MARC) measurementOrdered By: Anali Card on 08-26-2021 Angiotensin converting enzyme [Catalytic activity/Vol] 33 U/L [facility] Comment on above: Performed at: [place] [address] [id number] [employer] Liner: Prakash Ballesteros PhD, Phone: [phone] Serum globulin measurement ( mass/volume)Ordered By: Anali Card on 08-26-2021 Globulin (S) [Mass/Vol] 2.5 g/dL [facility] Serum hepatitis B virus surf marc antibody detectionOrdered By: Anali Card on 08-26-2021 HBV surface Ab Ql (S) Reactive [facility] Comment on above: Non Reactive: Incons istent with immunity, less than 10 mIU/mL Reactive: Consistent with immunity, greater than 9.9 mIU/mL Serum or plasma C reactive p rotein measurement (mass/volume)Ordered By: Anali Card on 08-26-2021 CRP [Mass/Vol] 0.5 mg/dL 0.0-1.[address] [facility] Serum or plasma alanine shell otransferase measurement without P-5'-P (enzymatic activiOrdered By: Anali Card on 08-26-2021 ALT No additional P-5'-P [Catalytic activity/Vol] 37 U/L 10-60 [facility] Serum or plasma albumin/glob ulin mass ratioOrdered By: Anali Card on 08-26-2021 Albumin/Globulin [Mass ratio] 1.8 {ratio} [facility] Albumin/Globulin [Mass ratio] 1.6 {ratio} [facility] Serum or plasma alkaline kiesha sphatase measurement (enzymatic activity/volume)Ordered By: Anali Card on 08-26-2021 ALP [Catalytic activity/Vol] 41 U/L 32-[address] [facility] Serum or plasma alpha 1 glob ulin measurement by electrophoresis (mass/volume)Ordered By: Anali Card on 08-26-2021 Alpha 1 globulin Elph [Mass/Vol] 0.2 g/dL [facility] Serum or plasma alpha 2 glob ulin measurement by electrophoresis (mass/volume)Ordered By: Anali Card on 08-26-2021 Alpha 2 globulin Elph [Mass/Vol] 0.6 g/dL [facility] Serum or plasma aspartate am inotransferase measurement (enzymatic activity/volume)Ordered By: Anali Card on 08-26-2021 AST [Catalytic activity/Vol] 26 U/L 10-[address] [facility] Serum or plasma beta globuli n measurement by electrophoresis (mass/volume)Ordered By: Anali Card on 08-26-2021 Beta globulin Elph [Mass/Vol] 1.0 g/dL [facility] Serum or plasma calcium lenka urement (mass/volume)Ordered By: Anali Card on 08-26-2021 Calcium [Mass/Vol] 9.6 mg/dL 8.2-10.2 [facility] Serum or plasma chloride bob surement (moles/volume)Ordered By: Anali Card on 08-26-2021 Chloride [Moles/Vol] 105 mmol/L 95-114 [facility] Serum or plasma gamma globul in measurement by electrophoresis (mass/volume)Ordered By: Anali Card on 08-26-2021 Gamma globulin Elph [Mass/Vol] 0.7 g/dL [facility] Serum or plasma glucose lenka urement (mass/volume)Ordered By: Anali Card on 08-26-2021 Glucose [Mass/Vol] 108 mg/dL 70-100 [facility] Comment on above: ADA recommended [...] 08-26-2021 HCV Ab IA Ql See comment [facility] Comment on above: Negative Not infected with HCV, unless recent infection is suspected or other evidence exists to indicate HCV infection. Effective September 02, 2021 HCV Antibody reflex to MALIKA will be made non-orderable. This will affect any Custom Profile that includes 133737 HCV Antibody reflex to MALIKA. [facility] offers order code [id number] HCV Antibody RFX to Quant PCR as an alternative. Performed at: [address] [id number] [employer] Liner: Prakash Ballesteros PhD, Phone: [phone] Serum or plasma hepatitis C virus antibody signal/cutoff ratio by immunoassay (relatiOrdered By: Anali Card on 08-26-2021 HCV Ab Signal/Cutoff IA [Rel units/Vol] <0.1 s/co ratio [facility] Serum or plasma potassium me asurement (moles/volume)Ordered By: Anali Card on 08-26-2021 Potassium [Moles/Vol] 4.5 mmol/L 3.5-5.1 [facility] Serum or plasma sodium measu rement (moles/volume)Ordered By: Anali Card on 08-26-2021 Sodium [Moles/Vol] 142 mmol/L 136-146 [facility] Serum or plasma thyroglobuli n antibody assay (units/volume)Ordered By: Anali Card on 08-26-2021 Thyroglobulin Ab Qn [IU]/mL [facility] Comment on above: Thyroglobulin Antibo dy measured by [facility] Performed at: [facility] [address] [id number] Hogshead Liner: Prakash Ballesteros PhD, Phone: [phone] Serum or plasma thyroperoxid ase antibody assay (units/volume)Ordered By: Anali Card on 08-26-2021 TPO Ab Qn 12 [IU]/mL [facility] Comment on above: Performed at: [employer] [facility] [address] [id number] [employer]ogshead Liner: Prakash Ballesteros PhD, Phone: [phone] Serum or plasma total biliru bin measurement (mass/volume)Ordered By: Anali Card on 08-26-2021 Bilirubin [Mass/Vol] 0.5 mg/dL 0.3-1.2 [facility] Serum or plasma total carbon dioxide measurement (moles/volume)Ordered By: Anali Card on 08-26-2021 CO2 [Moles/Vol] 26.9 mmol/L 22.0-30.0 [facility] Serum or plasma urea nitroge n measurement (mass/volume)Ordered By: Anali Card on 08-26-2021 Urea nitrogen [Mass/Vol] 17 mg/dL 9-[address] [facility] Specific gravity Auto test s trip (U) [Rel density]Ordered By: Anali Card on 08-26-2021 Specific gravity (U) [Rel density] 1.017 1.001-1.[address] [facility] Squamous epithelial cells de tection in urine sediment by light microscopyOrdered By: Anali Card on 08-26-2021 Epithelial cells.squamous LM Ql (Urine sed) None seen [HPF] [facility] TSH DL <= 0.005 mIU/L QnOrde red By: Anali Card on 08-26-2021 TSH Qn 1.43 m[IU]/L 0.45-5.[address] [facility] TT plasOrdered By: Anali hall on 08-26-2021 Thrombin time Coag (PPP) [Time] 20.[address] [facility] Thyroxine (T4) free [Mass/vo lume] in Serum or PlasmaOrdered By: Anali Card on 08-26-2021 Free T4 [Mass/Vol] 0.77 ng/dL 0.61-1.12 [facility] Urine alpha 1 globulin/total protein by electrophoresisOrdered By: Anali Card on 08-26-2021 Alpha 1 globulin Elph (U) [Mass fraction] 7.7 % [facility] Urine alpha 2 globulin/total protein ratio by electrophoresisOrdered By: Anali Card on 08-26-2021 Alpha 2 globulin Elph (U) [Mass fraction] 15.7 % [facility] Urine bacteria detection by automated methodOrdered By: Anali Card on 08-26-2021 Bacteria Auto Ql (U) None seen None Seen [facility] Urine beta globulin measurem ent by electrophoresis (mass/volume)Ordered By: Anali Card on 08-26-2021 Beta globulin Elph (U) [Mass/Vol] 37.4 % [facility] Urine clarity by refractomet ry automatedOrdered By: Anali Card on 08-26-2021 Clarity Refractometry automated (U) Clear Clear [facility] Urine glucose measurement by automated test strip (mass/volume)Ordered By: Anali Card on 08-26-2021 Glucose Auto test strip (U) [Mass/Vol] Normal mg/dL Normal [facility] Urine hemoglobin detection b y automated test stripOrdered By: Anali Card on 08-26-2021 Hemoglobin Auto test strip Ql (U) Negative Negative [facility] Urine leukocyte esterase det ection by automated test stripOrdered By: Anali Card on 08-26-2021 Leukocyte esterase Auto test strip Ql (U) Negative Negative [facility] Urobilinogen Auto test strip (U) [Mass/Vol]Ordered By: Anali Card on 08-26-2021 Urobilinogen (U) [Mass/Vol] Normal mg/dL Normal [facility] aPTT.lupus sensitive (LA scr een)Ordered By: Anali Card on 08-26-2021 aPTT.lupus sensitive Coag (PPP) [Time] 35.[address] [facility] aPTT.lupus sensitive/aPTT.scotty pus sensitive W excess phospholipid (screen to confirm raOrdered By: Anali Kyaw on 08-26-2021 aPTT.lupus sensitive/aPTT.lupus sensitive W excess phospholipid Coag (PPP) [Ratio] 1.[address] [facility] pH Auto test strip (U)Ordere d By: Anali Lalrow on 08-26-2021 pH (U) 6.0 [pH] 5.0-9.[address] [facility] Vital Signs Date Time Vital Sign Value Performing Clinician Quentini litkev 03-08-2024 14:21-0500 Blood Pressure Location Oj GONZALEZ [facility] 03-08-2024 14:21-0500 Diastolic blood pressure 72 mm[Hg] Oj GONZALEZ [facility] 03-08-2024 14:21-0500 Heart rate 72 /min Oj GONZALEZ [facility] 03-08-2024 14:21-0500 Respiratory rate 16 /min Oj GONZALEZ [facility] 03-08-2024 14:21-0500 Systolic blood pressure 112 mm[Hg] Oj GONZALEZ [facility] Encounters Encounter Date Encounter Type Care Provider Facility Start: 03-08-2024 End: 03-08-2024 ambulatory Oj GONZALEZ Facility:[facility] Start: 03-08-2024 End: 03-08-2024 Patient encounter procedure Oj GONZALEZ [facility] Start: 02-09-2024 ambulatory O[facility]ALE[facility] Start: 05-25-2023 End: 05-25-2023 ambulatory BILL SOTELO Not Available Start: 05-25-2023 End: 05-25-2023 Departed Referred Bill Sotelo Work Phone: [facility] Start: 02-12-2023 End: 02-12-2023 ambulatory Anali Card Facility:[facility] Start: 02-12-2023 End: 02-12-2023 ambulatory MD Sacha Monroy Work Phone: [facility] Work Phone: Start: 02-12-2023 End: 02-12-2023 Patient encounter procedure MD Sacha Monroy Work Phone: [facility] [address] Work Phone: Start: 06-06-2022 End: 06-07-[address] ANALI CARD Facility:[facility] Start: 12-25-2021 End: 12-26-[address] ANALI CARD Facility:[facility] Start: 09-05-2021 End: 09-05-2021 Patient encounter procedure MD Sacha Monroy Work Phone: [facility] [address] Start: 08-26-2021 End: 08-26-2021 Patient encounter procedure MD Sacha Monroy Work Phone: [facility] [address] Start: 08-22-2021 End: 08-22-2021 [...] Activity Detail Author 24 hour urine measurement [facility] Work Phone: Albumin [Mass/volume] in Serum or Plasma [facility] Work Phone: Albumin/Globulin ratio [facility] Work Phone: Angiotensin converti ng enzyme [Enzymatic activity/volume] in Serum or Plasma [facility] Work Phone: aPTT.lupus sensitive (LA screen) [facility] Work Phone: aPTT.lupus sensitive W excess phospholipid actual/Normal (normalized LA confirm) [facility] Work Phone: aPTT.lupus sensitive /aPTT.lupus sensitive W excess phospholipid (screen to confirm ra [facility] Work Phone: dRVVT (LA screen) [facility] Work Phone: Electrophoresis: [id number] [facility] Work Phone: Electrophoresis: [id number] [facility] Work Phone: Electrophoresis: beta-globulin [facility] Work Phone: Electrophoresis: gamma globulin [facility] Work Phone: Globulin [Mass/volume] in Serum [facility] Work Phone: Hepatitis B core antibody measurement [facility] Work Phone: Hepatitis B virus byers rface Ab [Presence] in Serum [facility] Work Phone: Hepatitis B virus byers rface Ag [Presence] in Serum or Plasma by Immunoassay [facility] Work Phone: Hepatitis C virus Ab Signal/Cutoff in Serum or Plasma by Immunoassay [facility] Work Phone: Hepatitis C virus RN A [Presence] in Serum or Plasma by MALIKA with probe detection [facility] Work Phone: IgA [Mass/volume] in Serum or Plasma [facility] Work Phone: IgG [Mass/volume] in Serum or Plasma [facility] Work Phone: IgM [Mass/volume] in Serum or Plasma [facility] Work Phone: Immunofixation for Urine [facility] Work Phone: Lupus anticoagulant [Interpretation] in Platelet poor plasma [facility] Work Phone: Measurement of monoc lonal protein concentration [facility] Work Phone: Protein [Mass/volume] in Serum or Plasma [facility] Work Phone: Protein [Mass/volume] in Urine [facility] Work Phone: Reagin Ab [Presence] in Serum by RPR [facility] Work Phone: Serum immunofixation [facility] Work Phone: Thrombin time [facility] Work Phone: Thyroglobulin Ab [Un its/volume] in Serum or Plasma [facility] [facility] Work Phone: Thyroperoxidase Ab [ Units/volume] in Serum or Plasma [facility] tr Work Phone: Immunizations Immunization Date Immunization Notes Care Provider [facility] 05-30-2020 COVID-19 mRNA-1273 (Arnoldo) MD Sacha Monroy Work Phone: [facility] 05-02-2020 COVID-19 mRNA-1273 (Arnoldo) MD Sacha Monroy Work Phone: [facility] Payers Date Payer Category Payer Self-pay [id number] 1965 Unknown [id number] 2.16.84 [id number] 1965 Unknown [id number] [id number] 1965 Unknown [id number] .16.84 [id number] 1965 Unknown [id number] 2.16.84 [id number] 1965 Unknown [id number] 2.16.8 [id number] 1959 Unknown [id number] Unknown [employer] [id number] Unknown [id number] 2.16.8 [id number] Unknown [id number] 2.16.8 [id number] Social History Date Type Detail Facility Start: 09-26-2020 End: 03-08-2024 Tobacco smoking status NHIS Never smoked tobacco (finding) [facility] Start: 1965 Sex Assigned At Female F [facility] Tobacco smoking status Never [facility] Sex Assigned At Female [facility] Functional Status Date Assessment Result Facility 03-08-2024 Functional Status N/A [facility] Clinical Note 03-08-2024 Note Date & Type Note Facility 03-08-2024 Note General Surgery Offi ce/Clinic Note Chief Complaint consultation for positive Cologuard HPI Staff 58 year old female presents on consultation from Dr. Monroy for positive Cologuard. Denies abdominal or rectal [...] Recorded SARS-CoV-2 (COVID-19) mRNA-1273 vaccine 05/02/2020 Recorded [facility] Comment on above: Result Comment: Elec tronically Signed By: CARLOS ROLDAN, Oj Rodriguez\mary\Date and Time Signed: 03/08/24 14:56 EST Evaluation + Plan note Note Date & Type Note Facility Evaluation + Plan note No data available for this section [facility] Evaluation note Note Date & Type Note Facility Evaluation note No assessment information availa [facility] Work Phone: Hospital Discharge instructions Note Date & Type Note Facility Hospital Discharge instructions No data available for this section [facility] Progress note Note Date & Type Note Facility Progress note No data available for this section [facility] [place] Family History No Family History Records Found [...] Dates Bill Sotelo Attending Provider Active Start: [facility] 2023 End: May 25, 2023 Goals (unrecognized section and content) Goals may be documented in a n alternate sectionGoals may be documented in an alternate sectionGoals may be documented in an alternate sectionGoals may be documented in an alternate section No data available for this section INFORMATION SOURCE (unrecogn ized section and content) DATE CREATED AUTHOR 06/09/2022 [facility] DATE CREATED AUTHOR AUTHOR'S ORGANIZ ATION 05/26/2023 [facility] DATE CREATED AUTHOR AUTHOR'S ORGANIZ ATION 06/23/2023 [facility] DATE CREATED AUTHOR AUTHOR'S ORGANIZ ATION 03/10/2024 [facility] FOR RECORDS PERTAINING TO PATIENTS [...] BE BASED ON THE PRIMARY CLINICAL RECORDS. [facility] [employer] [facility]. provides no warranty or guarantee of the accuracy or completeness of information in this document.
[2024-04-06] MEDS: 0.9 % SODIUM CHLORIDE 500 ML 50 ML IV (08:38)
[2024-04-06 09:46] VITALS: BP 144/85; PULSE 73; TEMP 36.3; O2SAT 98
[2024-04-06 10:00] VITALS: BP 153/80; PULSE 74; O2SAT 100
[2024-04-06 10:15] VITALS: BP 148/78; PULSE 72; O2SAT 100
== END 2024-04-06 10:16 | disposition home or self-care (01) ==
PROVIDERS: PCP Family Medicine; Visit Provider Surgery
PROC: (CPT 00811; principal; 2024-04-06 09:30)
DX: R19.5 Other fecal abnormalities (principal); J45.909 Unspecified asthma, uncomplicated; E78.00 Pure hypercholesterolemia, unspecified; Z90.49 Acquired absence of other specified parts of digestive tract; Z79.82 Long term (current) use of aspirin
CPT/HCPCS: 00811; 45378; J2704

== ENCOUNTER 2024-05-31 20:35 | Outpatient (REF) | payer BC, SELFPAY ==
--- OUTSIDE RECORDS SUMMARY | 2024-05-31 20:39 | XMS_ITS | CCD ---
Author Organization [facility] Care Team Providers Care Optical Manager Name Role Phone MD Sacha Monroy Primary Care Provider [phone] MD Vishal Card Attending Provider [phone] KYAW, DR BRIONES Admitting Unavailable KYAW, DR BRIONES Attending Unavailable TRACYY, DR LAFLEUR Primary Care Unavailable KYAW, DR BRIONES Consulting Unavailable KARASIK, DR BARKER Admitting Unavailable KARASIK, DR BARKER Attending Unavailable IRVING, DR LAFLEUR Primary Care Unavailable KARNELIDA, DR BARKER Consulting Unavailable KYAW, DR BRIONES Admitting Unavailable KYAW, DR BRIONES Attending Unavailable IRVING, DR LAFLEUR Primary Care Unavailable KYAW, DR BRIONES Consulting Unavailable MD Sacha Monroy Primary Care Provider [phone] MD Anali Card Attending Provider BILL SOTELO Attending Unavailable Bill Sotelo Attending Provider Bill Sotelo Attending Unavailable Bill Sotelo Admitting Unavailable Anali Card Attending Unavailable Anali Card Admitting Unavailable Sacha Monroy Primary Care Unavailable Sacha Monroy Primary Care Physician Sacha Monroy Referring Unavailable Oj GONZALEZ Attending Unavailable Oj GONZALEZ Attending Unavailable Allergies Allergy Classification Reported Allergen(s) Allergy Type Date of Onset Reaction(s) Facility (1 source) No Known Medication Allergies; Translations: [No Known Medication Allergies] Propensity to adverse reactions (disorder) [facility] Repository Medications Current Medications Medication Drug Class(es) Dates Sig (Normalized) Sig (Original) aspirin 81 mg delayed release oral tablet (5 sources) Platelet Aggregation Inhibitor, Nonsteroidal Anti-inflammatory Drug Start: 10-14-2024 take 1 tablet by mouth once daily [...] 06-06-19 Chronic Other aftercare (1 source) Other respiratory clinician (current) drug therapy; Translations: [OTH VP REVENUE CYCLE CURRENT DRUG THERAPY] Onset: 06-08-19 Episodic Other [...] Test Name Value Interpretation Reference Range Facility Reminderson 04-07-2024 Reminders Reminders From: Moon Wheately LPN To: GSN - Clinical; Sent: 04/07/2024 12:50:14 EST Show up: 03/07/2034 07:00:00 EDT Subject: colonoscopy recall Due Date/Time: 04/06/2034 07:00:00 EST Reminder/Recall Patient due for screening colonoscopy 04/06/2034. [facility] Ambulatory Visit Summaryon 1 05-08-2023 Ambulatory Visit Summary Ambulatory Visi t Summary JUAN CARLOS OGDEN :1965 Visit Date:03/08/2024 Ambulatory Visit Instructions Your Diagnosis Positive colorectal cancer screening using Cologuard test Your Care Team Attending Physician - Oj GONZALEZ MD Primary Care Physician - Sacha Monroy MD [...] you for choosing us for your care. [facility] [place]ino 05-25-2023 L Specimen: Received: 05/26/23 Status: MARIELA Mcgrath Num: [id number] Spec Type: Surgical Subm Dr: Bill Sotelo Tissues: A Cervical Polyp (CERVICAL POLYP) Procedures: HE/2, Gross/Micro L4 Age/ Patient Sex Location Account Attending Physician Juan Carlos Ogden 57/F [place] [id number] Bill Sotelo SPEC NUM: [id number] RECD: 05/26/23 STATUS: MARIELA MCGRATH NUM: [id number] DARIUS: 05/25/23 DR: Bill Sotelo ENTERED: 05/26/23 [facility] DR: Anali,Lab SPEC TYPE: Surgical DEPT: [facility] [...] in one cassette labeled A1. CPT Codes 57330 Specimen: [id number] Received: 05/26/23-1236 Status: MARIELA Mcgrath Num: [id number] Spec Type: Surgical Subm Dr: Bill Sotelo Tissues: A Cervical Polyp (CERVICAL POLYP) Procedures: HE/2, Gross/Micro L4 Patient: Juan Carlos Ogden [id number] (Continued) Signed (signature on file) Hero Neely MD 05/27/23 1009 [facility] Alanine aminotransferase [En zymatic activity/volume] in Serum or PlasmaOrdered By: Anali Card on 02-12-2023 ALT [Catalytic activity/Vol] 70 U/L High 752 [facility] Comment on above: Performed By: #### C MP, CBC #### [facility] [address] Albumin [Mass/volume] in Ser um or Plasma by Bromocresol green (BCG) dye binding methoOrdered By: Anali Card on 02-12-2023 Albumin BCG dye [Mass/Vol] 4.3 g/dL 3.5-5.7 [facility] Alkaline phosphatase [Enzyma tic activity/volume] in Serum or PlasmaOrdered By: Anali Card on 02-12-2023 ALP [Catalytic activity/Vol] 80 U/L Normal 34-104 [facility] Comment on above: Result Comment: PERF ORMED BY: [place] [address] PATHOLOGIST LOSS CONTROL TECHNICIAN OLGA LIDIA CORONA M.D. Performed By: #### C MP, CBC #### [address] Aspartate aminotransferase [ Enzymatic activity/volume] in Serum or PlasmaOrdered By: Anali Lalrow on 02-12-2023 AST [Catalytic activity/Vol] 36 U/L Normal 13-39 [facility] Comment on above: Performed By: #### C MP, CBC #### [address] Automated basophil %Ordered By: Anali Card on 02-12-2023 Basophils/100 WBC (Bld) 0.4 % Normal . [facility] Comment on above: Performed By: #### C MP, CBC #### [address] Automated basophil countOrde red By: Anali Lalrow on 02-12-2023 Basophils (Bld) [#/Vol] 0.0 10*3/uL Normal 0.0-0.2 [facility] Comment on above: Result Comment: PERF ORMED BY: [place] [address] PATHOLOGIST LOSS CONTROL TECHNICIAN OLGA LIDIA CORONA M.D. Performed By: #### C MP, CBC #### [address] Automated blood monocyte cou ntOrdered By: Analigardenia Card on 02-12-2023 Monocytes (Bld) [#/Vol] 0.4 10*3/uL Normal 0.0-0.8 [facility] Comment on above: Performed By: #### C MP, CBC #### [place] [address] Automated eosinophil %Ordere d By: Anali Card on 02-12-2023 Eosinophils/100 WBC (Bld) 2.1 % Normal . [facility] Comment on above: Performed By: #### C MP, CBC #### [address] Automated eosinophil countOr dered By: Anali Card on 02-12-2023 Eosinophils (Bld) [#/Vol] 0.1 10*3/uL Normal 0.0-0.45 [facility] Comment on above: Performed By: #### C MP, CBC #### [address] Automated monocyte %Ordered By: Anali Card on 02-12-2023 Monocytes/100 WBC (Bld) 8.2 % Normal . [facility] Comment on above: Performed By: #### C MP, CBC #### [address] Automated neutrophil %Ordere d By: Anali Lalrow on 02-12-2023 Neutrophils/100 WBC (Bld) 58.3 % Normal . [facility] Comment on above: Performed By: #### C MP, CBC #### [address] Bilirubin.total [Mass/volume ] in Serum or PlasmaOrdered By: Anali Card on 02-12-2023 Bilirubin [Mass/Vol] 0.5 mg/dL Normal 0.3-1.0 [facility] Comment on above: Performed By: #### C MP, CBC #### [address] Calcium [Mass/volume] in Ser um or PlasmaOrdered By: Anali Card on 02-12-2023 Calcium [Mass/Vol] 9.2 mg/dL Normal 8.6-10.3 [facility] Comment on above: Performed By: #### C MP, CBC #### [address] Carbon dioxide, total [Moles /volume] in Serum or PlasmaOrdered By: Anali Lalrow on 02-12-2023 CO2 [Moles/Vol] 28.6 mmol/L Normal 21.0-31.0 [facility] Comment on above: Performed By: #### C MP, CBC #### [address] Chloride [Moles/volume] in S tex or PlasmaOrdered By: Anali Kyaw on 02-12-2023 Chloride [Moles/Vol] 106 mmol/L Normal 98-107 [facility] Comment on above: Performed By: #### C MP, CBC #### [address] Complete Blood Count Auto Di ffon 02-12-2023 Mean Corpuscular HGB Conc 33.5 g/dL Normal 32.0-35.0 [facility] Comment on above: Performed By: #### C MP, CBC #### [facility] [address] [place] [address] NRBC% 0.1 /100{WBC} Normal 0-0.5 [facility] Comment on above: Performed By: #### C MP, CBC #### [address] Comprehensive Metabolic Pane albino 02-12-2023 Albumin [Mass/Vol] 4.3 g/dL Normal 3.5-5.7 [facility] Comment on above: Performed By: #### C MP, CBC #### [place] [address] [place] GFR/1.73 sq M.predicted MDRD (S/P/Bld) [Vol rate/Area] mL/min/{1.73_m2} Normal [facility] Comment on above: Performed By: #### C MP, CBC #### [address] Creatinine [Mass/volume] in Serum or PlasmaOrdered By: Anali Lalrow on 02-12-2023 Creatinine [Mass/Vol] 0.93 mg/dL Normal 0.60-1.20 [facility] Comment on above: Performed By: #### C MP, CBC #### [facility] [address] [place] [address] [place] Erythrocyte distribution wid th [Ratio] by Automated countOrdered By: Anali Card on 02-12-2023 Erythrocyte distribution width (RBC) [Ratio] 14.5 % Normal 11.9-15.3 [facility] Comment on above: Performed By: #### C MP, CBC #### [facility] [address] Erythrocytes [#/volume] in B lood by Automated countOrdered By: Anali Card on 02-12-2023 RBC (Bld) [#/Vol] 4.32 10*6/uL Normal 3.60-5.00 [facility] Comment on above: Performed By: #### C MP, CBC #### [place] [address] [place] Glucose [Mass/volume] in Ser um or PlasmaOrdered By: Anali Card on 02-12-2023 Glucose [Mass/Vol] 107 mg/dL High 70-100 [facility] Comment on above: ADA recommended refe rence rangeRandom Glucose Reference Range is dependent on time and content of last meal. Glucose of more than 200 mg/dL in a nonstressed, ambulatory subject supports the diagnosis of Diabetes Mellitus. Result Comment: [place] om Glucose Reference Range is dependent on time and content of last meal. Glucose of more than 200 mg/dL in a nonstressed, ambulatory subject supports the diagnosis of Diabetes Mellitus. ADA recommended reference range Performed By: #### C MP, CBC #### [facility] [address] Hematocrit [Volume Fraction] of Blood by Automated countOrdered By: Anali Card on 02-12-2023 Hematocrit (Bld) [Volume fraction] 39.2 % Normal 34.0-46.4 [facility] Comment on above: Performed By: #### C MP, CBC #### [place] [address] [place] Hemoglobin [Mass/volume] in BloodOrdered By: Anali Lalrow on 02-12-2023 Hemoglobin (Bld) [Mass/Vol] 13.1 g/dL Normal 11.8-15.4 [facility] Comment on above: Performed By: #### C MP, CBC #### [address] Leukocytes [#/volume] correc henry for nucleated erythrocytes in Blood by Automated counOrdered By: Anali Card on 02-12-2023 WBC corrected for nucl RBC Auto (Bld) [#/Vol] 4.9 10*3/uL 3.8-11.6 [facility] Leukocytes [#/volume] in Blo od by Automated countOrdered By: Anali Lalrow on 02-12-2023 WBC (Bld) [#/Vol] 4.9 10*3/uL Normal 3.8-11.6 [facility] Comment on above: Performed By: #### C MP, CBC #### [place] [address] [place] Lymphocytes [#/volume] in Bl ood by Automated countOrdered By: Anali Lalrow on 02-12-2023 Lymphocytes (Bld) [#/Vol] 1.5 10*3/uL Normal 1.00-4.8 [facility] Comment on above: Performed By: #### C MP, CBC #### [place] [address] [place] Lymphocytes/100 leukocytes i n Blood by Automated countOrdered By: Anali Lalrow on 02-12-2023 Lymphocytes/100 WBC (Bld) 31.0 % Normal . [facility] Comment on above: Performed By: #### C MP, CBC #### [place] [address] [place] MCH [Entitic mass] by Automa henry countOrdered By: Anali Lalrow on 02-12-2023 MCH (RBC) [Entitic mass] 30.4 pg Normal 24.7-34.3 [facility] Comment on above: Performed By: #### C MP, CBC #### [address] [place] [address] [place] MCHC Auto (RBC) [Mass/Vol]Or dered By: Anali Lalrow on 02-12-2023 MCHC (RBC) [Mass/Vol] 33.5 g/dL 32.0-35.0 [facility] MCV [Entitic volume] by Auto mated countOrdered By: Anali Lalrow on 02-12-2023 MCV (RBC) [Entitic vol] 90.8 fL Normal 80-100 [facility] Comment on above: Performed By: #### C MP, CBC #### [address] Neutrophils [#/volume] in Bl ood by Automated countOrdered By: Anali Kyaw on 02-12-2023 Neutrophils (Bld) [#/Vol] 2.9 10*3/uL Normal 1.8-7.7 [facility] Comment on above: Performed By: #### C MP, CBC #### [address] No Panel InformationOrdered By: Analigardenia Card on 02-12-2023 Estimated GFR (CKD-EPI) > 60.0 mL/Min [facility] Creatinine Clearance (Chem N/A [facility] Nucleated erythrocytes [Pres ence] in Blood by Automated countOrdered By: Anali Card on 02-12-2023 Nucleated RBC Auto Ql (Bld) 0.1 /100{WBC} 0-0.5 [facility] Platelet mean volume [Entiti c volume] in Blood by Automated countOrdered By: Anali Kyaw on 02-12-2023 Platelet mean volume (Bld) [Entitic vol] 9.6 fL Normal 6.3-10.7 [facility] Comment on above: Performed By: #### C MP, CBC #### [address] Platelets [#/volume] in Bloo d by Automated countOrdered By: Anali Cadr on 02-12-2023 Platelets (Bld) [#/Vol] 202 10*3/uL Normal 150-450 [facility] Comment on above: Performed By: #### C MP, CBC #### [address] Potassium [Moles/volume] in Serum or PlasmaOrdered By: Anali Card on 02-12-2023 Potassium [Moles/Vol] 4.6 mmol/L Normal 3.5-5.1 [facility] Comment on above: Performed By: #### C MP, CBC #### [address] Protein [Mass/volume] in Ser um or PlasmaOrdered By: Anali Card on 02-12-2023 Protein [Mass/Vol] 6.6 g/dL Normal 6.4-8.9 [facility] Comment on above: Performed By: #### C MP, CBC #### [address] Serum globulin measurement b y calculation (mass/volume)Ordered By: Anali Card on 02-12-2023 Globulin (S) [Mass/Vol] 2.3 g/dL Normal [facility] Comment on above: Performed By: #### C MP, CBC #### [address] Serum or plasma albumin/glob ulin mass ratioOrdered By: Anali Card on 02-12-2023 Albumin/Globulin [Mass ratio] 1.9 {ratio} Normal [facility] Comment on above: Performed By: #### C MP, CBC #### [address] Serum or plasma anion gap de terminationOrdered By: Anali Card on 02-12-2023 Anion gap [Moles/Vol] 11.0 mmol/L Normal 6.0-15.0 [facility] Comment on above: Performed By: #### C MP, CBC #### [address] Sodium [Moles/volume] in Ser um or PlasmaOrdered By: Anali Card on 02-12-2023 Sodium [Moles/Vol] 141 mmol/L Normal 136-145 [facility] Comment on above: Performed By: #### C MP, CBC #### [facility] [address] Urea nitrogen [Mass/volume] in Serum or PlasmaOrdered By: Anali Card on 02-12-2023 Urea nitrogen [Mass/Vol] 16 mg/dL Normal 7-25 [facility] Comment on above: Performed By: #### C MP, CBC #### [facility] [address] ANTICARDIOLIPIN AB (SELINA) IGG on 06-09-2022 Anticardiolipin Ab,IgG,Qn <9 Normal 0-14 [facility] Comment on above: Result Comment: Nega tive: <15 Indeterminate: 15 - 20 Low-Med Positive: >20 - 80 High Positive: >80 Performed By: #### C ARDLIP #### [facility] [address] [place] [address] Dr. Allison Neely CBC AUTO DIFFon 06-06-2022 BASO # 0.0 103/ul Normal 0.0-0.1 [facility] Comment on above: Performed By: #### C BC #### [facility] [address] [place] [address] Dr. Allison Neely Basophils/100 WBC (Bld) 0.5 % Normal 0.2-2.[address] [facility] Comment on above: Performed By: #### C BC #### [facility] [address] [place] [address] Dr. Allison Neely EO # 0.1 103/ul Normal 0.0-0.7 [facility] Comment on above: Performed By: #### C BC #### [facility] [address] [place] [address] Dr. Allison Neely Eosinophils/100 WBC (Bld) 0.9 % Normal 0.9-7.0 [facility] Comment on above: Performed By: #### C BC #### [facility] [address] [place] [address] Dr. Allison Neely Erythrocyte distribution width (RBC) [Ratio] 13.7 % Normal 11.0-15.0 [facility] Comment on above: Performed By: #### C BC #### [facility] [address] [place] [address] Dr. Allison Neely Hematocrit (Bld) [Volume fraction] 41.8 % Normal 36.0-48.0 [facility] Comment on above: Performed By: #### C BC #### [facility] [address] [place] [address] Dr. Allison Neely Hemoglobin (Bld) [Mass/Vol] 13.0 g/dL Normal 12.0-16.0 [facility] Comment on above: Performed By: #### C BC #### [facility] [address] [place] [address] Dr. Allison Neely IG # 0.01 10e3/ul Normal 0.00-0.03 [facility] Comment on above: Performed By: #### C BC #### [facility] [address] [place] [address] Dr. Allison Neely IG % 0.2 % Normal 0.0-0.5 [facility] Comment on above: Performed By: #### C BC #### [facility] [address] [place] [address] Dr. Allison Neely LYMPH # 1.7 103/ul Normal 1.2-3.8 [facility] Comment on above: Performed By: #### C BC #### [facility] [address] [place] [address] Dr. Allison Neely Lymphocytes/100 WBC (Bld) 30.5 % Normal 20.5-60.0 [facility] Comment on above: Performed By: #### C BC #### [facility] [address] [place] [address] Dr. Allison Neely MANUAL DIFF REQ NO Normal [facility] Comment on above: Performed By: #### C BC #### [facility] [address] [place] [address] Dr. Allison Neely MCH (RBC) [Entitic mass] 29.7 pg Normal 26.7-34.0 [facility] Comment on above: Performed By: #### C BC #### [facility] [address] [place] [address] [address] Allison Neely MCHC (RBC) [Mass/Vol] 31.1 g/dL Normal 29.9-35.2 [facility] Comment on above: Performed By: #### C BC #### [facility] [address] [place] [address] Dr. Allison Neely MCV (RBC) [Entitic vol] 95.7 fL Normal 81.0-99.[address] [facility] Comment on above: Performed By: #### C BC #### [facility] [address] [place] [address] Dr. Allison Neely MONO # 0.3 103/ul Normal 0.3-0.8 [facility] Comment on above: Performed By: #### C BC #### [facility] [address] [place] [address] Dr. Allison Neely Monocytes/100 WBC (Bld) 5.1 % Normal 1.7-12.[address] [facility] Comment on above: Performed By: #### C BC #### [facility] [address] [place] [address] Dr. Allison Neely NEUT # 3.5 103/ul Normal 1.4-6.5 [facility] Comment on above: Performed By: #### C BC #### [facility] [address] [place] [address] Dr. Allison Neely Neutrophils/100 WBC (Bld) 62.8 % Normal 43.0-75.0 [facility] Comment on above: Performed By: #### C BC #### [facility] [address] [place] [address] Dr. Allison Neely Platelet mean volume (Bld) [Entitic vol] 12.0 fL Normal 9.5-13.5 [facility] Comment on above: Performed By: #### C BC #### [facility] [address] [place] [address] Dr. Allison Neely PLT 274 103/ul Normal 150-450 [facility] Comment on above: Performed By: #### C BC #### [facility] [address] [place] [address] Dr. Allison Neely RBC 4.37 106/ul Normal 4.20-5.40 [facility] Comment on above: Performed By: #### C BC #### [facility] [address] [place] [address] Dr. Allison Neely WBC 5.6 103/ul Normal 4.0-11.0 [facility] Comment on above: Performed By: #### C BC #### [facility] [address] [place] [address] Dr. Allison Neely PROF 14(COMP METB)on 023 Albumin [Mass/Vol] 4.0 g/dL Normal 3.4-5.0 [facility] Comment on above: Performed By: #### C MP #### [facility] [address] [place] [address] Dr. Allison Neely Albumin/Globulin [Mass ratio] 1.3 {ratio} Normal [facility] Comment on above: Performed By: #### C MP #### [facility] [address] [place] [address] Dr. Allison Neely ALP [Catalytic activity/Vol] 103 U/L Normal 46-116 [facility] Comment on above: Performed By: #### C MP #### [facility] [address] [place] [address] Dr. Allison Neely ALT [Catalytic activity/Vol] 69 U/L Critically high 14-59 [facility] Comment on above: Performed By: #### C MP #### [facility] [address] [place] [address] Dr. Allison Neely Anion gap [Moles/Vol] 12.8 mmol/L Normal [facility] Comment on above: Performed By: #### C MP #### [facility] [address] [place] [address] Dr. Allison Neely AST [Catalytic activity/Vol] 30 U/L Normal 15-37 [facility] Comment on above: Performed By: #### C MP #### [facility] [address] [place] [address] Dr. Allison Neely Bilirubin [Mass/Vol] 0.4 mg/dL Normal 0.2-1.0 [facility] Comment on above: Performed By: #### C MP #### [facility] [address] [place] [address] Dr. Allison Neely Calcium [Mass/Vol] 9.3 mg/dL Normal 8.5-10.1 [facility] Comment on above: Performed By: #### C MP #### [facility] [address] [place] [address] Dr. Allison Neely Chloride [Moles/Vol] 101 mmol/L Normal 98-107 [facility] Comment on above: Performed By: #### C MP #### [facility] [address] [place] [address] Dr. Allison Neely CO2 [Moles/Vol] 29.2 mmol/L Normal 21.0-32.0 [facility] Comment on above: Performed By: #### C MP #### [facility] [address] [place] [address] Dr. Allison Neely Creatinine [Mass/Vol] 0.99 mg/dL Normal 0.55-1.02 [facility] Comment on above: Performed By: #### C MP #### [facility] [address] [place] [address] Dr. Allison Neely EGFR-AF [place] >60 Normal >=60 [facility] Comment on above: Performed By: #### C MP #### [facility] [address] [place] [address] Dr. Allison Neely EGFR-NON AF [place] 58 mL/min/1.73m2 Critically low >=60 [facility] Comment on above: Performed By: #### C MP #### [facility] [address] [place] [address] Dr. Allison Neely Globulin (S) [Mass/Vol] 3.0 g/dL Normal T [facility] Comment on above: Performed By: #### C MP #### [facility] [address] [place] [address] Dr. Allison Neely Glucose [Mass/Vol] 157 mg/dL Critically high 74-106 T [facility] Comment on above: Performed By: #### C MP #### [facility] [address] [place] [address] [address] Allison Neely Potassium [Moles/Vol] 4.0 mmol/L Normal 3.5-5.1 [facility] Comment on above: Performed By: #### C MP #### [facility] [address] [place] [address] [address] Allison Neely Protein [Mass/Vol] 7.0 g/dL Normal 6.4-8.2 [facility] Comment on above: Performed By: #### C MP #### [facility] [address] [place] [address] Dr. Allison Neely Sodium [Moles/Vol] 139 mmol/L Normal 136-145 [facility] Comment on above: Performed By: #### C MP #### [facility] [address] [place] [address] Dr. Allison Neely Urea nitrogen [Mass/Vol] 26.0 mg/dL Critically high 7.0-18 .0 [facility] [facility] Comment on above: Performed By: #### C MP #### [facility] [address] [place] [address] Dr. Allison Neely Urea nitrogen/Creatinine [Mass ratio] 26.3 mg/mg Normal [facility] Comment on above: Performed By: #### C MP #### [facility] [address] [place] [address] Dr. Allison Neely ANTICARDIOLIPIN AB (SELINA) IGG on 12-26-2021 Anticardiolipin Ab,IgG,Qn <9 Normal 0-14 [facility] Comment on above: Result Comment: Nega tive: <15 Indeterminate: 15 - 20 Low-Med Positive: >20 - 80 High Positive: >80 Performed By: #### C ARDLIP #### [facility] [address] [place] [address] Dr. Allison Neeyl PAP ACOG PANEL 2: 30 to 63on 08-29-2021 . . Normal [facility] Comment on above: Result Comment: Perf ormed at: WB Performed By: #### [id number] #### [facility] [address] [place] [address] Dr. Allison Neely Age Gdln ACOG Testing 30-65 Normal [facility] Comment on above: Performed By: #### [id number] #### [facility] [address] [place] [address] Dr. Allison Neely DIAGNOSIS: Comment Normal [facility] Comment on above: Result Comment: NEGA TIVE FOR INTRAEPITHELIAL LESION OR MALIGNANCY. CELLULAR CHANGES ASSOCIATED WITH ATROPHY ARE PRESENT. Performed at: WB Performed By: #### [id number] #### [facility] [address] [place] [address] Dr. Allison Neely HPV Aptima Negative Normal Negative [facility] Comment on above: Result Comment: This nucleic acid amplification test detects fourteen high-risk HPV types (16,18,31,33,35,39,45,51,52,56,58,59,66,68) without differentiation. Performed at: =G Performed By: #### [id number] #### [facility] [address] [place] [address] Dr. Allison Neely Methodology: Comment Normal [facility] Comment on above: Result Comment: This liquid based ThinPrep(R) pap test was screened with the use of an image guided system. Performed at: WB Performed By: #### [id number] #### [facility] [address] [place] [address] Dr. Allison Neely Note: Comment Normal [facility] Comment on above: Result Comment: The Pap smear is a screening test designed to aid in the detection of premalignant and malignant conditions of the uterine cervix. It is not a diagnostic procedure and should not be used as the sole means of detecting cervical cancer. Both false-positive and false-negative reports do occur. . Performed at: WB Performed By: #### [id number] #### [facility] [address] [place] [address] Dr. Allison Neely Performed by: Comment Normal [facility] Comment on above: Result Comment: Nuno Solis, [employer] (ASCP) Performed at: WB Performed By: #### 4 [id number] #### [facility] [address] [address] [address] Allison Neely Specimen adequacy: Comment Normal [facility] Comment on above: Result Comment: Sati sfactory for evaluation. Endocervical component may not be distinguished in cases of atrophy. Performed at: WB Performed By: #### [id number] #### [facility] [address] [address] [address] Allison Neely Activated partial thrombopla stin time (aPTT) in platelet poor plasma by coagulation aOrdered By: Anali Card on 08-26-2021 aPTT Coag (PPP) [Time] 33.9 s 25.1-36.5 [facility] Albumin [Mass/volume] in Ser um or PlasmaOrdered By: Anali Card on 08-26-2021 Albumin [Mass/Vol] 4.0 g/dL [facility] Albumin/Protein.total in 24 hour Urine by ElectrophoresisOrdered By: Anali Card on 08-26-2021 Albumin Elph (24H U) [Mass fraction] 22.6 % [facility] Automated erythrocytes count in urine sediment (number/area)Ordered By: Anali Card on 08-26-2021 RBC Auto (Urine sed) [#/Area] 0-1 [HPF] [facility] Automated leukocytes count i n urine sediment (number/area)Ordered By: Anali Card on 08-26-2021 WBC Auto (Urine sed) [#/Area] 0-1 [HPF] [facility] Basophils Auto (Bld) [#/Vol] Ordered By: Anali Card on 08-26-2021 Basophils (Bld) [#/Vol] 0.0 10*3/uL 0.0-0.2 [facility] Basophils/100 WBC Auto (Bld) Ordered By: Anali Card on 08-26-2021 Basophils/100 WBC (Bld) 0.8 % [facility] Bilirubin Test strip Ql (U)O rdered By: Anali Card on 08-26-2021 Bilirubin Ql (U) Negative Negative [facility] Blood hemoglobin measurement (mass/volume)Ordered By: Anali Card on 08-26-2021 Hemoglobin (Bld) [Mass/Vol] 13.5 g/dL 11.8-15.4 [facility] Blood leukocytes automated c ount (number/volume)Ordered By: Anali Card on 08-26-2021 WBC (Bld) [#/Vol] 3.3 10*3/uL 4.5-11.0 [facility] Body fluid albumin measureme nt (mass/volume)Ordered By: Anali Card on 08-26-2021 Albumin (Body fld) [Mass/Vol] 4.3 g/dL 3.2-5.5 [facility] Color Auto (U)Ordered By: Venkat Card on 08-26-2021 Color (U) Yellow Yellow [facility] Creatine kinase [Enzymatic a ctivity/volume] in Serum or PlasmaOrdered By: Anali Card on 08-26-2021 CK [Catalytic activity/Vol] 137 U/L 22-269 [facility] Creatinine and Glomerular fi ltration rate.predicted panel (S/P/Bld)Ordered By: Anali Card on 08-26-2021 Creatinine [Mass/Vol] 0.91 mg/dL 0.44-1.03 [facility] Dilute Morgan's viper venom timeOrdered By: Anali Card on 08-26-2021 dRVVT Coag (PPP) [Time] 39.0 s F [facility] Eosinophils Auto (Bld) [#/Vo l]Ordered By: Anali Card on 08-26-2021 Eosinophils (Bld) [#/Vol] 0.1 10*3/uL 0.0-0.45 [facility] Eosinophils/100 WBC Auto (Bl d)Ordered By: Anali Card on 08-26-2021 Eosinophils/100 WBC (Bld) 4.2 % [facility] Erythrocyte distribution wid th Auto (RBC) [Ratio]Ordered By: Anali Card on 08-26-2021 Erythrocyte distribution width (RBC) [Ratio] 13.6 % 11.9-15.3 [facility] Erythrocyte sedimentation ra te by Photometric methodOrdered By: Anali Card on 08-26-2021 ESR Photometric method (Bld) [Velocity] 9 mm/hr 0-29 [facility] Estimated glomerular filtrat ion rate (GFR) non- AmericanOrdered By: Anali Card on 08-26-2021 GFR/1.73 sq M.predicted among non-blacks MDRD (S/P/Bld) [Vol rate/Area] > 60 mL/Min [facility] Gamma globulin/Protein.total in 24 hour Urine by ElectrophoresisOrdered By: Anali Card on 08-26-2021 Gamma globulin Elph (24H U) [Mass fraction] 16.7 % [facility] Globulin Calc (S) [Mass/Vol] Ordered By: Anali Card on 08-26-2021 Globulin (S) [Mass/Vol] 2.4 g/dL F [facility] Hematocrit Auto (Bld) [Volum e fraction]Ordered By: Anali Card on 08-26-2021 Hematocrit (Bld) [Volume fraction] 39.9 % 34.0-46.4 [facility] Hepatitis B virus surface Ag [Presence] in Serum or Plasma by ImmunoassayOrdered By: Anali Card on 08-26-2021 HBV surface Ag IA Ql Negative Negative [facility] Hepatitis C virus RNA [Prese nce] in Serum or Plasma by MALIKA with probe detectionOrdered By: Anali Card on 08-26-2021 HCV RNA MALIKA+probe Ql N/A [facility] IgA [Mass/volume] in Serum o r PlasmaOrdered By: Anali Card on 08-26-2021 IgA [Mass/Vol] 103 mg/dL [facility] IgG [Mass/volume] in Serum o r PlasmaOrdered By: Anali Card on 08-26-2021 IgG [Mass/Vol] 617 mg/dL [facility] IgM [Mass/volume] in Serum o r PlasmaOrdered By: Anali Card on 08-26-2021 IgM [Mass/Vol] 226 mg/dL [facility] Comment on above: Performed at: [address] [id number] Dispatcher Maintenance: Prakash Ballesteros PhD, Phone: [phone] Immunofixation for UrineOrde red By: Anali Card on 08-26-2021 Interpretation Immunofixation (U) [Interp] See comment [facility] Comment on above: No monoclonality det ected. Performed at: - [facility] [id number] Dispatcher Maintenance: Prakash Ballesteros PhD, Phone: [phone] Ketones Auto test strip (U) [Mass/Vol]Ordered By: Anali Card on 08-26-2021 Ketones (U) [Mass/Vol] Negative Negative [facility] - CoagulationOrde red By: Anali Card on 08-26-2021 PT Coag (PPP) [Time] 11.1 s 9.0-12.9 [facility] - Hematology and Cell countsOrdered By: Anali Card on 08-26-2021 Nucleated RBC/100 WBC (Bld) [Ratio] 0.1 % 0-0.5 [facility] - UrinalysisOrder ed By: Anali Card on 08-26-2021 Hyaline casts LM Ql (Urine sed) 0-8 [LPF] [facility] Lupus anticoagulant [Interpr etation] in Platelet poor plasmaOrdered By: Anali Card on 08-26-2021 Lupus anticoagulant (PPP) [Interp] Comment: [facility] Comment on above: No lupus anticoagula nt was detected. Performed at: - [facility] [id number] Dispatcher Maintenance: Amanda Olmedo MD, Phone: [phone] Lymphocytes Auto (Bld) [#/Vo l]Ordered By: Anali Card on 08-26-2021 Lymphocytes (Bld) [#/Vol] 1.2 10*3/uL 1.00-4.8 [facility] Lymphocytes/100 WBC Auto (Bl d)Ordered By: Anali Card on 08-26-2021 Lymphocytes/100 WBC (Bld) 37.9 % [facility] MCH Auto (RBC) [Entitic mass ]Ordered By: Anali Card on 08-26-2021 MCH (RBC) [Entitic mass] 30.7 pg 24.7-34.3 [facility] MCHC Auto (RBC) [Mass/Vol]Or dered By: Anali Card on 08-26-2021 MCHC (RBC) [Mass/Vol] 33.8 g/dL 32.0-35.0 [facility] MCV Auto (RBC) [Entitic vol] Ordered By: Anali Card on 08-26-2021 MCV (RBC) [Entitic vol] 90.6 fL 80-100 [facility] Monocytes Auto (Bld) [#/Vol] Ordered By: Anali Card on 08-26-2021 Monocytes (Bld) [#/Vol] 0.3 10*3/uL 0.0-0.8 [facility] Monocytes/100 WBC Auto (Bld) Ordered By: Anali Card on 08-26-2021 Monocytes/100 WBC (Bld) 8.5 % [facility] Neutrophils Auto (Bld) [#/Vo l]Ordered By: Anali Card on 08-26-2021 Neutrophils (Bld) [#/Vol] 1.6 10*3/uL 1.8-7.7 [facility] Neutrophils/100 WBC Auto (Bl d)Ordered By: Anali Card on 08-26-2021 Neutrophils/100 WBC (Bld) 48.6 % [facility] Nitrite Test strip Ql (U)Ord ered By: Anali Card on 08-26-2021 Nitrite Ql (U) Negative Negative [facility] No Panel InformationOrdered By: Anali Card on 08-26-2021 Estimated GFR () > 60 mL/Min [facility] Comment on above: GFR estimated refere nce range: According to KDOQI guidelines, <60 ml/min/1.73m2 is sufficient to diagnose a patient with chronic kidney disease. Hepatitis B Core Total Antibody Negative Negative [facility] Comment on above: Performed at: - [address] [id number] Dispatcher Maintenance: Prakash Ballesteros PhD, Phone: [phone] Hepatitis C RNA Comment N/A [facility] Creatinine Clearance (Chem N/A [facility] Protein Electrophoresis M-Shawn Not observed g/dL Not Observed [facility] Protein Electrophoresis Note See comment [facility] Comment on above: Protein electrophore sis scan will follow via computer, mail, or air drier machine operator delivery. Serum Immunofixation See comment [facility] Comment on above: No monoclonality det ected. Urine Random Prot Electrophor Note See comment [facility] Comment on above: Protein electrophore sis scan will follow via computer, mail, or air drier machine operator delivery. Performed at: [address] [id number] Dispatcher Maintenance: Prakash Ballesteros PhD, Phone: [phone] Platelet mean volume Auto (B ld) [Entitic vol]Ordered By: Anali Card on 08-26-2021 Platelet mean volume (Bld) [Entitic vol] 9.9 fL 6.3-10.7 [facility] Platelet poor plasma interna tional normalized ratio (INR) by coagulation assay (relatOrdered By: Anali Card on 08-26-2021 INR Coag (PPP) [Relative time] 1.0 {INR} [facility] Comment on above: INR Therapeutic Rang [...] actual/normal Coag (PPP) [Relative time] 35.7 sec [facility] Platelets Auto (Bld) [#/Vol] Ordered By: Anali Card on 08-26-2021 Platelets (Bld) [#/Vol] 243 10*3/uL 150-450 [facility] Protein Auto test strip (U) [Mass/Vol]Ordered By: Anali Card on 08-26-2021 Protein (U) [Mass/Vol] Negative Negative [facility] Protein [Mass/volume] in Ser um or PlasmaOrdered By: Anali Card on 08-26-2021 Protein [Mass/Vol] 6.7 g/dL 6.1-7.9 [facility] Protein [Mass/Vol] 6.5 g/dL [facility] Protein [Mass/volume] in Uri neOrdered By: Anali Card on 08-26-2021 Protein (U) [Mass/Vol] 9.0 mg/dL Not Estab. [facility] Protein.monoclonal/Protein.t otal in 24 hour Urine by ElectrophoresisOrdered By: Anali Card on 08-26-2021 Protein.monoclonal Elph (24H U) [Mass fraction] Not observed % Not Observed [facility] RBC Auto (Bld) [#/Vol]Ordere d By: Anali Card on 08-26-2021 RBC (Bld) [#/Vol] 4.40 10*6/uL 3.60-5.00 [facility] Reagin Ab [Presence] in Seru m by RPROrdered By: Anali Card on 08-26-2021 Reagin Ab RPR Ql (S) Non-Reactive Non Reactive [facility] Comment on above: Performed at: [employer] [place] [address] Dispatcher Maintenance: Prakash Ballesteros PhD, Phone: [phone] Serum angiotensin converting enzyme (MARC) measurementOrdered By: Anali Card on 08-26-2021 Angiotensin converting enzyme [Catalytic activity/Vol] 33 U/L [facility] Comment on above: Performed at: [employer] [address] [id number] Dispatcher Maintenance: Prakash Ballesteros PhD, Phone: [phone] Serum globulin measurement ( mass/volume)Ordered By: Anali Card on 08-26-2021 Globulin (S) [Mass/Vol] 2.5 g/dL [facility] Serum hepatitis B virus surf marc antibody detectionOrdered By: Anali Card on 08-26-2021 HBV surface Ab Ql (S) Reactive [facility] Comment on above: Non Reactive: Incons istent with immunity, less than 10 mIU/mL Reactive: Consistent with immunity, greater than 9.9 mIU/mL Serum or plasma C reactive p rotein measurement (mass/volume)Ordered By: Anali Card on 08-26-2021 CRP [Mass/Vol] 0.5 mg/dL 0.0-1.0 [facility] Serum or plasma alanine shell otransferase measurement without P-5'-P (enzymatic activiOrdered By: Anali Card on 08-26-2021 ALT No additional P-5'-P [Catalytic activity/Vol] 37 U/L 10-60 [facility] Serum or plasma albumin/glob ulin mass ratioOrdered By: Anali Card on 08-26-2021 Albumin/Globulin [Mass ratio] 1.8 {ratio} [facility] Albumin/Globulin [Mass ratio] 1.6 {ratio} [facility] Serum or plasma alkaline kiesha sphatase measurement (enzymatic activity/volume)Ordered By: Anali Card on 08-26-2021 ALP [Catalytic activity/Vol] 41 U/L 32-92 [facility] Serum or plasma alpha 1 glob ulin measurement by electrophoresis (mass/volume)Ordered By: Anali Card on 08-26-2021 Alpha 1 globulin Elph [Mass/Vol] 0.2 g/dL [facility] Serum or plasma alpha 2 glob ulin measurement by electrophoresis (mass/volume)Ordered By: Anali Card on 08-26-2021 Alpha 2 globulin Elph [Mass/Vol] 0.6 g/dL [facility] Serum or plasma aspartate am inotransferase measurement (enzymatic activity/volume)Ordered By: Anali Card on 08-26-2021 AST [Catalytic activity/Vol] 26 U/L 10-42 [facility] Serum or plasma beta globuli n measurement by electrophoresis (mass/volume)Ordered By: Anali Card on 08-26-2021 Beta globulin Elph [Mass/Vol] 1.0 g/dL [facility] Serum or plasma calcium lenka urement (mass/volume)Ordered By: Anali Card on 08-26-2021 Calcium [Mass/Vol] 9.6 mg/dL 8.2-10.2 [facility] Serum or plasma chloride bob surement (moles/volume)Ordered By: Anali Card on 08-26-2021 Chloride [Moles/Vol] 105 mmol/L 95-114 [facility] Serum or plasma gamma globul in measurement by electrophoresis (mass/volume)Ordered By: Anali Card on 08-26-2021 Gamma globulin Elph [Mass/Vol] 0.7 g/dL [facility] Serum or plasma glucose lenka urement (mass/volume)Ordered By: Anali Card on 08-26-2021 Glucose [Mass/Vol] 108 mg/dL 70-100 [facility] Comment on above: ADA recommended refe rence [...] 08-26-2021 HCV Ab IA Ql See comment [facility] Comment on above: Negative Not infected with HCV, unless recent infection is suspected or other evidence exists to indicate HCV infection. Effective September 02, 2021 HCV Antibody reflex to MALIKA will be made non-orderable. This will affect any Custom Profile that includes [id number] HCV Antibody reflex to MALIKA. [facility] offers order code [id number] HCV Antibody RFX to Quant PCR as an alternative. Performed at: [address] [id number] Dispatcher Maintenance: Prakash Ballesteros PhD, Phone: [phone] Serum or plasma hepatitis C virus antibody signal/cutoff ratio by immunoassay (relatiOrdered By: Anali Card on 08-26-2021 HCV Ab Signal/Cutoff IA [Rel units/Vol] <0.1 s/co ratio [facility] Serum or plasma potassium me asurement (moles/volume)Ordered By: Anali Card on 08-26-2021 Potassium [Moles/Vol] 4.5 mmol/L 3.5-5.1 [facility] Serum or plasma sodium measu rement (moles/volume)Ordered By: Anali Card on 08-26-2021 Sodium [Moles/Vol] 142 mmol/L 136-146 [facility] Serum or plasma thyroglobuli n antibody assay (units/volume)Ordered By: Anali Card on 08-26-2021 Thyroglobulin Ab Qn [IU]/mL [facility] Comment on above: Thyroglobulin Antibo dy measured by [employer] Methodology Performed at: [email or web address] [address] [id number] Dispatcher Maintenance: Prakash Ballesteros PhD, Phone: [phone] Serum or plasma thyroperoxid ase antibody assay (units/volume)Ordered By: Anali Card on 08-26-2021 TPO Ab Qn 12 [IU]/mL [facility] Comment on above: Performed at: [facility] [facility] [address] [id number] Dispatcher Maintenance: Prakash Ballesteros PhD, Phone: [phone] Serum or plasma total biliru bin measurement (mass/volume)Ordered By: Anali Card on 08-26-2021 Bilirubin [Mass/Vol] 0.5 mg/dL 0.3-1.2 [facility] Serum or plasma total carbon dioxide measurement (moles/volume)Ordered By: Anali Card on 08-26-2021 CO2 [Moles/Vol] 26.9 mmol/L 22.0-30.0 [facility] Serum or plasma urea nitroge n measurement (mass/volume)Ordered By: Anali Card on 08-26-2021 Urea nitrogen [Mass/Vol] 17 mg/dL 9-23 [facility] Specific gravity Auto test s trip (U) [Rel density]Ordered By: Anali Card on 08-26-2021 Specific gravity (U) [Rel density] 1.017 1.001-1.03 0 [facility] Squamous epithelial cells de tection in urine sediment by light microscopyOrdered By: Anali Card on 08-26-2021 Epithelial cells.squamous LM Ql (Urine sed) None seen [HPF] [facility] TSH DL <= 0.005 mIU/L QnOrde red By: Anali Card on 08-26-2021 TSH Qn 1.43 m[IU]/L 0.45-5.33 [facility] TT plasOrdered By: Anali hall on 08-26-2021 Thrombin time Coag (PPP) [Time] 20.6 sec [facility] Thyroxine (T4) free [Mass/vo lume] in Serum or PlasmaOrdered By: Anali Card on 08-26-2021 Free T4 [Mass/Vol] 0.77 ng/dL 0.61-1.12 [facility] Urine alpha 1 globulin/total protein by electrophoresisOrdered By: Anali Card on 08-26-2021 Alpha 1 globulin Elph (U) [Mass fraction] 7.7 % [facility] Urine alpha 2 globulin/total protein ratio by electrophoresisOrdered By: Anali Card on 08-26-2021 Alpha 2 globulin Elph (U) [Mass fraction] 15.7 % [facility] Urine bacteria detection by automated methodOrdered By: Anali Card on 08-26-2021 Bacteria Auto Ql (U) None seen None Seen [facility] Urine beta globulin measurem ent by electrophoresis (mass/volume)Ordered By: Anali Card on 08-26-2021 Beta globulin Elph (U) [Mass/Vol] 37.4 % [facility] Urine clarity by refractomet ry automatedOrdered By: Anali Card on 08-26-2021 Clarity Refractometry automated (U) Clear Clear [facility] Urine glucose measurement by automated test strip (mass/volume)Ordered By: Anali Card on 08-26-2021 Glucose Auto test strip (U) [Mass/Vol] Normal mg/dL Normal [facility] Urine hemoglobin detection b y automated test stripOrdered By: Anali Card on 08-26-2021 Hemoglobin Auto test strip Ql (U) Negative Negative [facility] Urine leukocyte esterase det ection by automated test stripOrdered By: Anali Card on 08-26-2021 Leukocyte esterase Auto test strip Ql (U) Negative Negative [facility] Urobilinogen Auto test strip (U) [Mass/Vol]Ordered By: Anali Card on 08-26-2021 Urobilinogen (U) [Mass/Vol] Normal mg/dL Normal [facility] aPTT.lupus sensitive (LA scr een)Ordered By: Anali Card on 08-26-2021 aPTT.lupus sensitive Coag (PPP) [Time] 35.3 sec [facility] aPTT.lupus sensitive/aPTT.scotty pus sensitive W excess phospholipid (screen to confirm raOrdered By: Anali Card on 08-26-2021 aPTT.lupus sensitive/aPTT.lupus sensitive W excess phospholipid Coag (PPP) [Ratio] 1.04 Ratio [facility] pH Auto test strip (U)Ordere d By: Anali Card on 08-26-2021 pH (U) 6.0 [pH] 5.0-9.0 [facility] Vital Signs Date Time Vital Sign Value Performing Clinician Jonna mason 03-08-2024 14:21-0500 Blood Pressure Location Oj GONZALEZ [facility] 03-08-2024 14:21-0500 Diastolic blood pressure 72 mm[Hg] Oj GONZALEZ [facility] 03-08-2024 14:21-0500 Heart rate 72 /min Oj GONZALEZ [facility] 03-08-2024 14:21-0500 Respiratory rate 16 /min Oj GONZALEZ [facility] 03-08-2024 14:21-0500 Systolic blood pressure 112 mm[Hg] Oj GONZALEZ [facility] Encounters Encounter Date Encounter Type Care Provider Facility Start: 04-06-2024 End: 04-06-2024 ambulatory Oj GONZALEZ Facility:CD:[id number] Start: 03-08-2024 End: 03-08-2024 ambulatory Sacha Hokev Facility:[facility] Start: 03-08-2024 End: 03-08-2024 Patient encounter procedure Oj GONZALEZ [facility] Start: 02-09-2024 ambulatory Sacha Monroy Facility:[facility] Start: 05-25-2023 End: 05-25-2023 ambulatory BILL SOTELO Not Available Start: 05-25-2023 End: 05-25-2023 Departed Referred Bill Sotelo Work Phone: [facility] Start: 02-12-2023 End: 02-12-2023 ambulatory Anali Card Facility:[facility] Start: 02-12-2023 End: 02-12-2023 ambulatory MD Sacha Monroy Work Phone: [facility] Work Phone: Start: 02-12-2023 End: 02-12-2023 Patient encounter procedure MD Sacha Monroy Work Phone: [facility] [address] Work Phone: Start: 06-06-2022 End: 06-07-[address] ANALI CARD Facility:[facility] Start: 12-25-2021 End: 12-26-[address] ANALI CARD Facility:[facility] Start: 09-05-2021 End: 09-05-2021 Patient encounter procedure MD Sacha Monroy Work Phone: [facility] [address] Start: 08-26-2021 End: 08-26-2021 Patient encounter procedure MD Sacha Monroy Work Phone: [facility] [address] Start: 08-22-2021 End: 08-22-2021 [...] Detail Author 24 hour urine measurement Fi [facility] Work Phone: Albumin [Mass/volume] in Serum or Plasma [facility] Work Phone: Albumin/Globulin ratio [facility] Work Phone: Angiotensin converti ng enzyme [Enzymatic activity/volume] in Serum or Plasma [facility] Work Phone: aPTT.lupus sensitive (LA screen) [facility] Work Phone: aPTT.lupus sensitive W excess phospholipid actual/Normal (normalized [place] confirm) [facility] Work Phone: aPTT.lupus sensitive /aPTT.lupus sensitive W excess phospholipid (screen to confirm ra [facility] tr Work Phone: dRVVT (LA screen) [facility] Work Phone: Electrophoresis: [id number] [facility] Work Phone: Electrophoresis: [id number] [facility] Work Phone: Electrophoresis: beta-globulin [facility] Work Phone: Electrophoresis: gamma globulin [facility] [facility] Work Phone: Globulin [Mass/volume] in Serum [facility] Work Phone: Hepatitis B core antibody measurement [facility] Work Phone: Hepatitis B virus byers rface Ab [Presence] in Serum [facility] Work Phone: Hepatitis B virus byers rface Ag [Presence] in Serum or Plasma by Immunoassay [facility] Work Phone: Hepatitis C virus Ab Signal/Cutoff in Serum or Plasma by Immunoassay [facility] Work Phone: Hepatitis C virus RN A [Presence] in Serum or Plasma by MALIKA with probe detection [facility] Work Phone: IgA [Mass/volume] in Serum or Plasma [facility] Work Phone: IgG [Mass/volume] in Serum or Plasma [facility] Work Phone: IgM [Mass/volume] in Serum or Plasma [facility] Work Phone: Immunofixation for Urine [facility] Work Phone: Lupus anticoagulant [Interpretation] in Platelet poor plasma [facility] Work Phone: Measurement of monoc lonal protein concentration [facility] Work Phone: Protein [Mass/volume] in Serum or Plasma [facility] Work Phone: Protein [Mass/volume] in Urine [facility] Work Phone: Reagin Ab [Presence] in Serum by RPR [facility] Work Phone: Serum immunofixation [facility] Work Phone: Thrombin time [facility] onFormerly named [facility] Work Phone: Thyroglobulin Ab [Un its/volume] in Serum or Plasma [facility] Work Phone: Thyroperoxidase Ab [ Units/volume] in Serum or Plasma [facility] Work Phone: Immunizations Immunization Date Immunization Notes Care Provider Fa cility 05-30-2020 COVID-19 mRNA-1273 (Moderna) MD Sacha Monroy Work Phone: [facility] 05-02-2020 COVID-19 mRNA-1273 (Moderna) MD Sacha Monroy Work Phone: [facility] Payers Date Payer Category Payer Self-pay [id number] 1965 Unknown [id number] 2.16.84 [id number] 1965 Unknown [id number] 2.16.84 [id number] 1965 Unknown [id number] 2.16.84 [id number] 1965 Unknown [id number] 2.16.84 [id number] 1965 Unknown [id number] 2.16.8 [id number] 1965 Unknown [id number] 2.16.8 [id number] 1961 Unknown [id number] Unknown [employer] [id number] Unknown [id number] 2.16.8 [id number] Unknown [id number] 2.16.8 [id number] Social History Date Type Detail Facility Start: 09-26-2020 End: 03-08-2024 Tobacco smoking status NHIS Never smoked tobacco (finding) [facility] Start: 1965 Sex Assigned At Female F [facility] Tobacco smoking status Never [facility] Sex Assigned At Female [facility] Functional Status Date Assessment Result Facility 03-08-2024 Functional Status N/A [facility] Clinical Note 03-08-2024 Note Date & [...] Recorded SARS-CoV-2 (COVID-19) mRNA-1273 vaccine 05/02/2020 Recorded [facility] Comment on above: Result Comment: Elec tronically Signed By: CARLOS ROLDAN, Oj Moore\Date and Time Signed: 03/08/24 14:56 EST Evaluation + Plan note Note Date & Type Note Facility Evaluation + Plan note No data available for this section [facility] Evaluation note Note Date & Type Note Facility Evaluation note [facility] Hospital Discharge instructions Note Date & Type Note Facility Hospital Discharge instructions No data available for this section [facility] Progress note Note Date & Type Note Facility Progress note No data available for this section [facility] Family History No Family History Records Found [...] content) Team Status: Inactive Member Role Status Óscar Monroy MD Primary Care Provider Active Vishal Card MD Attending Provider Active Team Status: Active Member Role Status Óscar Monroy MD Primary Care Provider Active Team Status: Inactive Member Role Status Óscar Monroy MD Primary Care Provider Active Anali [...] DATE CREATED AUTHOR AUTHOR'S ORGANIZ ATION 05/26/2023 [facility] EPIC DATE CREATED AUTHOR AUTHOR'S ORGANIZ ATION 06/23/2023 [facility] [place] DATE CREATED AUTHOR AUTHOR'S ORGANIZ ATION 04/14/2024 [facility] FOR RECORDS PERTAINING TO PATIENTS WHO [...] BE BASED ON THE PRIMARY CLINICAL RECORDS. [employer] provides no warranty or guarantee of the accuracy or completeness of information in this document.
[2024-06-08 11:08] LABS: Age Gdln ACOG Testing Note (.); HPV Aptima Negative (Negative); IGP, Aptima HPV, rfx 16/18,45 Note (.)
== END 2024-05-31 20:36 | disposition home or self-care (01) ==
LOC: LAB 20:35
PROVIDERS: PCP Family Medicine; Visit Provider Obstetrics & Gynecology
DX: Z01.419 Encounter for gynecological examination (general) (routine) without abnormal findings (principal)
CPT/HCPCS: 87624; 88175

== ENCOUNTER 2024-06-23 08:45 | Outpatient (OUT) | payer BC, SELFPAY ==
--- NOTE | 2024-06-23 | PCN_ITS ---
CARDIAC STRESS TEST Requesting Physician: Procedure Date: 06/23/2024 This is a treadmill exercise stress test, performed at the [facility] on 06/23/2024. The patient was attached to electrocardiographic monitoring. Baseline ECG and vital signs were obtained. The patient exercised on a treadmill according to the Boby protocol for 6 minutes and 36 seconds and reached stage 3 of the Boby protocol, achieving 8.8 METS. Reason for termination of the test was reaching target heart rate. Resting heart rate was 88 BPM and peak heart rate was 162 BPM, representing 101% of maximal predicted heart rate. Resting blood pressure was 132/86, and peak blood pressure was 206/96. Resting ECG showed normal sinus rhythm. ECG at peak exercise showed sinus tachycardia with borderline ST segment depressions in V4, V5 and V6. Those ST segment depressions recovered quickly after 2-3 minutes of exercise termination. There was evidence of occasional PVCs noted at peak exercise and in the early recovery period. The patient experienced shortness of breath with peak exercise that resolved at the end of the test. SUMMARY OF THE FINDINGS: 1. Equivocal stress test due to borderline ST segment depressions seen with peak exercise. The ST segment depressions recovered quickly to baseline after termination of the exercise test. 2. Resting hypertension and exaggerated response to exercise. 3. Occasional PVCs seen during treadmill exercise. RECOMMENDATIONS: Depending on the clinical picture, consider performing a stress test with cardiac imaging to increase the sensitivity and specificity of the test. MTDD
--- NOTE | 2024-06-23 10:20 | PC.NURSE ---
Nursing Note Cardiac Stress Test Reviewed: Medication, allergies and patient history reviewed. Stress Test: [x ] Patient tolerated stress test well. [ ] Patient unable to tolerate walking on treadmill. Switched to Lexiscan stress test. [ x] No chest pain noted per patient [ ] Chest pain that resolved prior to leaving stress lab. [x ] No dyspnea noted. [ ] Dyspnea that resolved prior to leaving stress lab. [ x] Patient left stress lab asymptomatic and hemodynamically stable. [ ] Patient taken to the Emergency Room due to non-resolving symptoms following stress test. [ ] Patient achieved target heart rate. [ ] Patient unable to achieve target heart rate. [ ] Aminophylline administered as reversal agent to Lexiscan (Regadenoson). [ ] Nitro administered. Nursing Comments:
== END 2024-06-23 08:46 | disposition home or self-care (01) ==
LOC: CARD 08:45
PROVIDERS: PCP Family Medicine; Visit Provider Family Medicine
DX: R07.9 Chest pain, unspecified (principal)
CPT/HCPCS: 93017

== ENCOUNTER 2024-07-26 07:53 | Outpatient (OUT) | payer BC, SELFPAY ==
--- NOTE | 2024-07-26 07:45 | NM_ITS ---
Patient Name: JUAN CARLOS LOU MR#: [id number] : 1965 Exam Date: 07/26/2024 Ordering Doctor: DR Sacha Monroy . RADIOLOGY REPORT PROCEDURE: NM ERIKA PERF SPECT REST STR COMPARISON: None. INDICATIONS: CHEST PAIN, ABNORMAL STRESS TEST TECHNIQUE: Exam Description: Stress/Rest one day protocol gated SPECT Rest Imagin.1 mCi Tc-99m Cardiolite IV on 07/26/2024 Stress Imaging 30.8 mCi Tc-99m Cardiolite IV on 07/26/2024 Exercise Protocol: Boby Heart Rate (bpm): Rest: 73 Max: 148 PMHR: 93 Blood Pressure: Rest: 118/87 Max: 170/78 Exercise Time: Minutes: 6 Seconds: 03 Stage Reached: Stage: 2 Mets 7.0 Symptoms: Rest and peak stress ECG findings were pending and the exercise portion of the study was pending per attending physician [facility] . For more details, please see separate cardiac stress test report. FINDINGS: QUALITY OF STUDY: Good PERFUSION DEFECT: None LOCATION: N/A SIZE: N/A SEVERITY: N/A TYPE: N/A WALL MOTION: Normal wall motion LV SIZE: 70 mL. TID / TCD: 0.6 LVEF: Calculated EF 85%. SUMMARY: Myocardial perfusion imaging study is normal CONCLUSION: 1. Myocardial perfusion is normal 2. Global left ventricular systolic function is hyperdynamic 3. No transient ischemic dilatation Dictated by: Jozef Parker M.D. on 07/27/2024 at 14:15 Approved by: Jozef Parker M.D. on 07/27/2024 at 14:17
--- OUTSIDE RECORDS SUMMARY | 2024-07-26 07:57 | XMS_ITS | CCD ---
Author Organization [facility] Care Team Providers Care Delivery Engineer Name Role Phone MD Sacha Monroy Primary Care Provider [phone] MD Vishal Card Attending Provider KYAW, DR BRIONES Admitting Unavailable CARD, DR BRIONES Attending Unavailable TRACYY, DR LAFLEUR Primary Care Unavailable CARD, DR BRIONES Consulting Unavailable KARASIK, DR BARKER Admitting Unavailable KARASIK, DR BARKER Attending Unavailable IRVING, DR LAFLEUR Primary Care Unavailable KARELVIRAK, DR BARKER Consulting Unavailable KYAW, DR BRIONES Admitting Unavailable KYAW, DR BRIONES Attending Unavailable RTACYY, DR LAFLEUR Primary Care Unavailable KYAW, DR BRIONES Consulting Unavailable MD Sacha Monroy Primary Care Provider [phone] MD Anali Card Attending Provider Bill Sotelo Attending Provider Bill Sotelo Attending Unavailable Bill Sotelo Admitting Unavailable Anali Card Attending Unavailable Anali Card Admitting Unavailable Sacha Monroy Primary Care Unavailable Sacha Monroy Primary Care Physician Sacha Monroy Referring Unavailable Oj GONZALEZ Attending Unavailable Oj GONZALEZ Attending Unavailable Sacha Monroy MD Primary Care Provider BILL SOTELO Attending Unavailable Allergies Allergy Classification Reported Allergen(s) Allergy Type Date of Onset Reaction(s) Facility (1 source) No Known Medication Allergies; Translations: [No Known Medication Allergies] Propensity to adverse reactions (disorder) [facility] Repository Medications Current Medications Medication Drug Class(es) Dates Sig (Normalized) Sig (Original) [id number] 200 actuat albuterol 0.09 mg/actuat metered dose inhaler (4 sources) beta2-Adrenergic Agonist Start: 05-21-2023 Ventolin HFA 108 (90 Base) MCG/ACT inhaler every 4 (four) hours 05/21/2023 Active aspirin 81 mg delayed release oral tablet [...] MG PO Daily September 25, 2020 11:00pm azithromycin 250 mg oral tablet (4 sources) Macrolide Antimicrobial Start: 05-25-2023 azithromycin (Zithromax Z-Alex) 250 MG tablet Indications: Upper respiratory tract infection, unspecified type As directed 6 tablet 05/25/2023 Active cetirizine hydrochloride 10 mg oral tablet (4 sources) Histamine-1 Receptor Antagonist cetirizine (ZyrTEC ALLERGY) 10 MG tablet 1 (one) time each day at the same time Active 24 hr diclofenac sodium 100 mg extended release oral tablet (5 sources) Nonsteroidal Anti-inflammatory Drug Start: 02-15-2024 take 1 tablet by mouth once daily diclofenac sodium 100 mg ER Tab 100 mg = 1 tab(s), Oral, Daily, Refills(s) 0 Start Date: 02/15/24 Status: Ordered Start: 05-15-2023 take 1 tablet by sarabjit th every twenty-four hours in the morning diclofenac sodium (Voltaren XR) 100 mg 24 hr tablet Take 100 mg by mouth in the morning. 05/15/2023 Active fluticasone propionate 0.05 mg/actuat metered dose nasal spray (4 sources) Corticosteroid fluticasone (Flonase Allergy Relief) 50 MCG/ACT nasal spray 1 (one) time each day at the same time Active 200 actuat ipratropium bromide 0.017 mg/actuat metered dose inhaler (4 sources) Anticholinergic ipratropium (Atrovent) 17 MCG/ACT inhaler every 6 (six) hours Active lisinopril 10 mg oral tablet (3 sources) Angiotensin Converting Enzyme Inhibitor Start: 05-31-19 End: 05-31-19 take 1 tablet by mouth once daily lisinopril 10 MG tablet Indications: Blood pressure elevated without history of HTN Take 1 tablet (10 mg) by mouth Daily 30 tablet 05/31/2024 05/31/2025 Active 24 hr metFORMIN hydrochloride 500 mg extended release oral tablet (3 sources) Biguanide Start: 05-31-19 End: 05-31-19 take 1 tablet by mouth every twenty-four hours at mealtime metFORMIN XR (Glucophage-XR) 500 MG 24 hr tablet Indications: Insulin resistance Take 1 tablet (500 mg) by mouth in the evening. Take with meals Do not crush, chew, or split. 30 tablet 05/31/2024 05/31/2025 Active montelukast 10 mg oral tablet (4 sources) Leukotriene Receptor Antagonist montelukast (Singulair) 10 MG tablet 1 (one) time each day at the same time Active Multi Vitamins oral tablet (1 source) Start: 02-15-20 take 1 tablet by mouth once daily Multi Vitamins oral tablet 1 tab(s), Oral, Daily, Refill(s) 0 Start Date: 02/15/24 Status: Ordered Multiple Vitamin (multivitamin) capsule (4 sources) Multiple Vitamin (multivitamin) capsule 1 capsule 1 (one) time each day at the same time Active phentermine hydrochloride 37.5 mg oral tablet (8 sources) Sympathomimetic Amine Anorectic Start: 09-27-19 End: 09-27-19 take 1 tablet by mouth once daily Phentermine (Adipex-P) 37.5 mg tablet Active 37.5 MG PO Daily September 25, 2020 11:00pm simvastatin 20 mg oral tablet (4 sources) HMG-CoA Reductase Inhibitor Start: 09-27-19 take 20 mg by mouth once daily Simvastatin Active 20 MG PO Daily September 25, 2020 11:00pm terconazole 4 mg/ml vaginal cream (2 sources) Azole Antifungal Start: 05-31-19 End: 06-07-19 terconazole (Terazol 7) 0.4 % vaginal cream Indications: Skin yeast infection Insert 1 applicator into the vagina at bedtime for 7 days Apply to affected area daily 45 g 05/31/2024 06/07/2024 Active traZODone hydrochloride 50 mg oral tablet (9 sources) Serotonin Reuptake Inhibitor Start: 05-21-19 take 1 tablet by mouth at bedtime traZODone (Desyrel) 50 MG tablet Take 50 mg by mouth at bedtime 05/21/2023 Active Start: 09-26-2020 take 50 mg by mouth at bedtime Trazodone Active 50 MG PO Bedtime September 25, 2020 11:00pm Ventolin HFA 90 mcg/inh Aerosol-Adpt (1 source) Start: 02-15-2024 take 2 puff(s) by inhalation every four hours Ventolin HFA 90 mcg/inh Aerosol-Adpt 2 puff(s), Inhalation, q4hr, Refill(s) 0 Start Date: 02/15/24 Status: Ordered Completed/Discontinued Medications Medication Drug Class(es) Dates Sig (Normalized) Sig (Original) fluconazole 150 mg oral tablet (2 sources) Azole Antifungal Start: 05-31-2024 End: 05-31-2024 fluconazole (Diflucan) 150 MG tablet Indications: Skin yeast infection Take 1 tablet (150 mg) by mouth 1 (one) time for 1 dose Repeat in 7 days if symptoms persist. 2 tablet 05/31/2024 05/31/2024 Problems Active Problems Problem Classification Problem Date Documented Date Episodic/Chronic Asthma (1 source) Asthma 02-15-2024 Chronic Disorders of lipid metabolism (1 source) Hypercholesterolemia 02-15-2024 Chronic Heart valve disorders (1 source) Mitral valve prolapse 02-15-2024 Chronic Mycoses (2 sources) Candidiasis of skin; Translations: [Candidiasis of skin and nail] 05-31-2024 Episodic Osteoarthritis (5 sources) Unspecified osteoarthritis, unspecified site; Translations: [Primary generalized (osteo)arthritis] Onset: 06-06-19 Chronic Other aftercare (1 source) Other retirement (current) drug therapy; Translations: [OTH CUSTODIAL CURRENT DRUG THERAPY] Onset: 06-08-19 Episodic Other circulatory disease (2 sources) H/O: heart disorder; Translations: [Personal history of other diseases of the circulatory system] 05-31-2024 Episodic Other circulatory disease (2 sources) Elevated blood-pressure reading without diagnosis of hypertension; Translations: [Elevated blood-pressure reading, without diagnosis of hypertension] 05-31-2024 Episodic Other female genital disorders (1 source) [...] caused by energy imbalance 02-15-2024 Chronic Other nutritional; endocrine; and metabolic disorders (2 sources) Insulin resistance; Translations: [Insulin resistance] 05-31-2024 Chronic Other screening for suspected conditions (not mental disorders or infectious disease) (7 sources) Encounter for screening for malignant neoplasm of cervix; Translations: [Stool DNA-based colorectal cancer screening positive] Onset: 08-23-19 Episodic Other upper respiratory disease (1 source) Allergic rhinitis 02-15-2024 Chronic Phlebitis; thrombophlebitis and thromboembolism (3 sources) H/O: Deep vein thrombosis; Translations: [H/O: thrombosis] 02-15-2024 Episodic Residual codes; unclassified (1 source) Insomnia 02-15-2024 Episodic Thyroid disorders (1 source) Thyroid nodule 02-15-2024 Chronic Past or Other Problems Problem Classification Problem Date Documented Date Episodic/Chronic Immunizations and screening for infectious disease (2 sources) Raised antibody titer; Translations: [Encounter for screening for human papillomavirus (HPV)] Onset: 08-23-2021 Episodic Results Test Name Value Interpretation Reference Range Facility IGP,APTIMA HPV,AGE GDLNon AGE GDLN ACOG TESTING Note . [facility] Comment on above: TESTS RESULT FLAG UN ITS REF RANGE LAB Clinician Provided Cytology Information Source.............Cervix;Endocervix No. of containers..01 ThinPrep Vial Age Algo ACOG Alejandra... 3065 FLAG LEGEND: L-Low Normal,H-High Normal,LL-Alert Low,HH-Alert High <-Panic Low,>-Panic High,A-Abnormal,AA-Critical Abnormal Performed at: 01 = [facility] [id number] Desiree Hall MD, HPV APTIMA Negative Negative [facility] Comment on above: This nucleic acid am plification test detects fourteen high- risk HPV types (16,18,31,33,35,39,45,51,52,56,58,59,66,68) without differentiation. Performed at: =[facility] [id number] Multi Operation Machine Operator: Desiree Hall MD, Phone: [phone] Performed at: [facility] [id number] [place] [id number] Multi Operation Machine Operator: James Dixon MD, Phone: [phone] IGP, APTIMA HPV, RFX 16/18,45 Note . [facility] Comment on above: TESTS RESULT FLAG UN ITS REF RANGE LAB DIAGNOSIS: 02 NEGATIVE FOR INTRAEPITHELIAL LESION OR MALIGNANCY. CELLULAR CHANGES ASSOCIATED WITH ATROPHY ARE PRESENT. THIS SPECIMEN WAS RESCREENED PART OF OUR PHARMACIST [facility] PROGRAM. Specimen adequacy: 02 Satisfactory for evaluation. Endocervical and/or squamous metaplastic cells (endocervical component) are present. Performed by: 02 Bryant Samaniego, Auto Accessories Installer (ASCP) QC reviewed by: 02 Nuris Mason, Auto Accessories Installer ([facility]) . 02 Note: Note 03 The Pap smear is a screening test designed to aid in the detection of premalignant and malignant conditions of the uterine cervix. It is not a diagnostic procedure and should not be used as the sole means of detecting cervical cancer. Both false-positive and false-negative reports do occur. Test Methodology: Note 03 This liquid based ThinPrep(R) pap test was screened with the use of an image guided system. HPV Genotype Reflex Note 02 Criteria not met, HPV Genotype not performed. FLAG LEGEND: L-Low Normal,H-High Normal,LL-Alert Low,HH-Alert High <-Panic Low,>-Panic High,A-Abnormal,AA-Critical Abnormal Performed at: 02 [facility] [address] [place] [address] James Dixon MD, 03 WB [facility] [address] [address] Desiree Hall MD, BRUSH-SPATULA [facility]-07-2024 Reminders Reminders From: Moon Wheatley LPN To: GSN - Clinical; Sent: 04/07/2024 12:50:14 EST Show up: 03/07/2034 07:00:00 EDT Subject: colonoscopy recall Due Date/Time: 04/06/2034 07:00:00 EST Reminder/Recall Patient due for screening colonoscopy 04/06/2034. [facility] Ambulatory Visit Summaryon 1 05-08-2023 Ambulatory [...] you for choosing us for your care. [facility] [place] 05-25-2023 L Specimen: [id number] Received: 05/26/23 Status: MARIELA Mcgrath Num: [id number] Spec Type: Surgical Subm Dr: Bill Sotelo Tissues: A Cervical Polyp (CERVICAL POLYP) Procedures: HE/2, Gross/Micro L4 Age/ Patient Sex Location Account Attending Physician Juan Carlos Ogden 57/F LABELL [id number] Bill Sotelo SPEC NUM: [id number] RECD: 05/26/23 STATUS: MARIELA MCGRATH NUM: [id number] DARIUS: 05/25/23- SUBM DR: Bill Sotelo ENTERED: 05/26/[address] [facility] [address]: Anali,Lab SPEC TYPE: Surgical DEPT: [...] in one cassette labeled A1. CPT Codes 61793 Specimen: [id number] Received: 05/26/23-1236 Status: MARIELA Mcgrath Num: [id number] Spec Type: Surgical Subm Dr: Bill Sotelo Tissues: A Cervical Polyp (CERVICAL POLYP) Procedures: HE/2, Gross/Micro L4 Patient: Juan Carlos Ogden [id number] (Continued) Signed (signature on file) Hero Neely MD 05/27/23 1009 Normal [facility] Alanine aminotransferase [En zymatic activity/volume] in Serum or PlasmaOrdered By: Anali Card on 02-12-2023 ALT [Catalytic activity/Vol] 70 U/L High 7-52 [facility] Comment on above: Performed By: #### C MP, CBC #### [facility] [address] Albumin [Mass/volume] in Ser um or Plasma by Bromocresol green (BCG) dye binding methoOrdered By: Anali Card on 02-12-2023 Albumin BCG dye [Mass/Vol] 4.3 g/dL 3.5-5.7 [facility] Alkaline phosphatase [Enzyma tic activity/volume] in Serum or PlasmaOrdered By: Anali Card on 02-12-2023 ALP [Catalytic activity/Vol] 80 U/L Normal 34-104 [facility] Comment on above: Result Comment: PERF ORMED BY: [place] [address] PATHOLOGIST PRODUCTION ASSEMBLY OPERATOR OLGA LIDIA CORONA M.D. Performed By: #### C MP, CBC #### [address] Aspartate aminotransferase [ Enzymatic activity/volume] in Serum or PlasmaOrdered By: Anali Kyaw on 02-12-2023 AST [Catalytic activity/Vol] 36 U/L Normal 13-39 [facility] Comment on above: Performed By: #### C MP, CBC #### [address] Automated basophil %Ordered By: Anali Kyaw on 02-12-2023 Basophils/100 WBC (Bld) 0.4 % Normal . [facility] Comment on above: Performed By: #### C MP, CBC #### [address] Automated basophil countOrde red By: Analigardenia Card on 02-12-2023 Basophils (Bld) [#/Vol] 0.0 10*3/uL Normal 0.0-0.2 [facility] Comment on above: Result Comment: PERF ORMED BY: [place] [address] PATHOLOGIST PRODUCTION ASSEMBLY OPERATOR OLGA LIDIA CORONA M.D. Performed By: #### C MP, CBC #### [address] Automated blood monocyte cou ntOrdered By: Analigardenia Card on 02-12-2023 Monocytes (Bld) [#/Vol] 0.4 10*3/uL Normal 0.0-0.8 [facility] Comment on above: Performed By: #### C MP, CBC #### [address] Automated eosinophil %Ordere d By: Anali Card on 02-12-2023 Eosinophils/100 WBC (Bld) 2.1 % Normal . [facility] Comment on above: Performed By: #### C MP, CBC #### [address] Automated eosinophil countOr dered By: Anali Card on 02-12-2023 Eosinophils (Bld) [#/Vol] 0.1 10*3/uL Normal 0.0-0.45 [facility] Comment on above: Performed By: #### C MP, CBC #### [address] Automated monocyte %Ordered By: Anali Lalrow on 02-12-2023 Monocytes/100 WBC (Bld) 8.2 % Normal . [facility] Comment on above: Performed By: #### C MP, CBC #### [address] Automated neutrophil %Ordere d By: Anali Kyaw on 02-12-2023 Neutrophils/100 WBC (Bld) 58.3 % Normal . [facility] Comment on above: Performed By: #### C MP, CBC #### [address] Bilirubin.total [Mass/volume ] in Serum or PlasmaOrdered By: Anali Kyaw on 02-12-2023 Bilirubin [Mass/Vol] 0.5 mg/dL Normal 0.3-1.0 [facility] Comment on above: Performed By: #### C MP, CBC #### [address] Calcium [Mass/volume] in Ser um or PlasmaOrdered By: Analigardenia Card on 02-12-2023 Calcium [Mass/Vol] 9.2 mg/dL Normal 8.6-10.3 [facility] Comment on above: Performed By: #### C MP, CBC #### [address] Carbon dioxide, total [Moles /volume] in Serum or PlasmaOrdered By: Anali Card on 02-12-2023 CO2 [Moles/Vol] 28.6 mmol/L Normal 21.0-31.0 [facility] Comment on above: Performed By: #### C MP, CBC #### [facility] [address] [place] [address] Chloride [Moles/volume] in S tex or PlasmaOrdered By: Anali Card on 02-12-2023 Chloride [Moles/Vol] 106 mmol/L Normal 98-107 [facility] Comment on above: Performed By: #### C MP, CBC #### [address] Complete Blood Count Auto Di ffon 02-12-2023 Mean Corpuscular HGB Conc 33.5 g/dL Normal 32.0-35.0 [facility] Comment on above: Performed By: #### C MP, CBC #### [facility] [address] [place] [address] NRBC% 0.1 /100{WBC} Normal 0-0.5 [facility] Comment on above: Performed By: #### C MP, CBC #### [facility] [address] [place] [address] Comprehensive Metabolic Pane albino 02-12-2023 Albumin [Mass/Vol] 4.3 g/dL Normal 3.5-5.7 [facility] Comment on above: Performed By: #### C MP, CBC #### [address] GFR/1.73 sq M.predicted MDRD (S/P/Bld) [Vol rate/Area] mL/min/{1.73_m2} Normal [facility] Comment on above: Performed By: #### C MP, CBC #### [address] Creatinine [Mass/volume] in Serum or PlasmaOrdered By: Anali Card on 02-12-2023 Creatinine [Mass/Vol] 0.93 mg/dL Normal 0.60-1.20 [facility] Comment on above: Performed By: #### C MP, CBC #### [facility] [address] [place] [address] Erythrocyte distribution wid th [Ratio] by Automated countOrdered By: Anali Card on 02-12-2023 Erythrocyte distribution width (RBC) [Ratio] 14.5 % Normal 11.9-15.3 [facility] Comment on above: Performed By: #### C MP, CBC #### [facility] [address] Erythrocytes [#/volume] in B lood by Automated countOrdered By: Anali Card on 02-12-2023 RBC (Bld) [#/Vol] 4.32 10*6/uL Normal 3.60-5.00 [facility] Comment on above: Performed By: #### C MP, CBC #### [facility] [address] [place] [address] [place] Glucose [Mass/volume] in Ser um or PlasmaOrdered By: Anali Lalrow on 02-12-2023 Glucose [Mass/Vol] 107 mg/dL High 70-100 [facility] Comment on above: ADA recommended refe rence rangeRandom Glucose Reference Range is dependent on time and content of last meal. Glucose of more than 200 mg/dL in a nonstressed, ambulatory subject supports the diagnosis of Diabetes Mellitus. Result Comment: [place] Glucose Reference Range is dependent on time and content of last meal. Glucose of more than 200 mg/dL in a nonstressed, ambulatory subject supports the diagnosis of Diabetes Mellitus. ADA recommended reference range Performed By: #### C MP, CBC #### [address] Hematocrit [Volume Fraction] of Blood by Automated countOrdered By: Anali Lalrow on 02-12-2023 Hematocrit (Bld) [Volume fraction] 39.2 % Normal 34.0-46.4 [facility] Comment on above: Performed By: #### C MP, CBC #### [facility] [address] [place] [address] [place] Hemoglobin [Mass/volume] in BloodOrdered By: Anali Lalrow on 02-12-2023 Hemoglobin (Bld) [Mass/Vol] 13.1 g/dL Normal 11.8-15.4 [facility] Comment on above: Performed By: #### C MP, CBC #### [address] Leukocytes [#/volume] correc henry for nucleated erythrocytes in Blood by Automated counOrdered By: Anali Lalrow on 02-12-2023 WBC corrected for nucl RBC Auto (Bld) [#/Vol] 4.9 10*3/uL 3.8-11.6 [facility] Leukocytes [#/volume] in Blo od by Automated countOrdered By: Anali Lalrow on 02-12-2023 WBC (Bld) [#/Vol] 4.9 10*3/uL Normal 3.8-11.6 [facility] Comment on above: Performed By: #### C MP, CBC #### [address] Lymphocytes [#/volume] in Bl ood by Automated countOrdered By: Analigardenia Card on 02-12-2023 Lymphocytes (Bld) [#/Vol] 1.5 10*3/uL Normal 1.00-4.8 [facility] Comment on above: Performed By: #### C MP, CBC #### [address] Lymphocytes/100 leukocytes i n Blood by Automated countOrdered By: Anali Lalrow on 02-12-2023 Lymphocytes/100 WBC (Bld) 31.0 % Normal . [facility] Comment on above: Performed By: #### C MP, CBC #### [address] MCH [Entitic mass] by Automa henry countOrdered By: Anali Kyaw on 02-12-2023 MCH (RBC) [Entitic mass] 30.4 pg Normal 24.7-34.3 [facility] Comment on above: Performed By: #### C MP, CBC #### [address] MCHC Auto (RBC) [Mass/Vol]Or dered By: Anali Card on 02-12-2023 MCHC (RBC) [Mass/Vol] 33.5 g/dL 32.0-35.0 [facility] MCV [Entitic volume] by Auto mated countOrdered By: Anali Lalrow on 02-12-2023 MCV (RBC) [Entitic vol] 90.8 fL Normal 80-100 [facility] Comment on above: Performed By: #### C MP, CBC #### [address] Neutrophils [#/volume] in Bl ood by Automated countOrdered By: Anali Lalrow on 02-12-2023 Neutrophils (Bld) [#/Vol] 2.9 10*3/uL Normal 1.8-7.7 [facility] Comment on above: Performed By: #### C MP, CBC #### [address] No Panel InformationOrdered By: Analigardenia Card on 02-12-2023 Estimated GFR (CKD-EPI) > 60.0 mL/Min [facility] Creatinine Clearance (Chem N/A [facility] Nucleated erythrocytes [Pres ence] in Blood by Automated countOrdered By: Anali Kyaw on 02-12-2023 Nucleated RBC Auto Ql (Bld) 0.1 /100{WBC} 0-0.5 [facility] Platelet mean volume [Entiti c volume] in Blood by Automated countOrdered By: Anali Lalrow on 02-12-2023 Platelet mean volume (Bld) [Entitic vol] 9.6 fL Normal 6.3-10.7 [facility] Comment on above: Performed By: #### C MP, CBC #### [address] Platelets [#/volume] in Bloo d by Automated countOrdered By: Anali Kyaw on 02-12-2023 Platelets (Bld) [#/Vol] 202 10*3/uL Normal 150-450 [facility] Comment on above: Performed By: #### C MP, CBC #### [address] Potassium [Moles/volume] in Serum or PlasmaOrdered By: Anali Card on 02-12-2023 Potassium [Moles/Vol] 4.6 mmol/L Normal 3.5-5.1 [facility] Comment on above: Performed By: #### C MP, CBC #### [facility] [address] [place] [address] Protein [Mass/volume] in Ser um or PlasmaOrdered By: Anali Card on 02-12-2023 Protein [Mass/Vol] 6.6 g/dL Normal 6.4-8.9 [facility] Comment on above: Performed By: #### C MP, CBC #### [address] Serum globulin measurement b y calculation (mass/volume)Ordered By: Anali Card on 02-12-2023 Globulin (S) [Mass/Vol] 2.3 g/dL Normal [facility] Comment on above: Performed By: #### C MP, CBC #### [address] Serum or plasma albumin/glob ulin mass ratioOrdered By: Anali Card on 02-12-2023 Albumin/Globulin [Mass ratio] 1.9 {ratio} Normal [facility] Comment on above: Performed By: #### C MP, CBC #### [address] Serum or plasma anion gap de terminationOrdered By: Anali Card on 02-12-2023 Anion gap [Moles/Vol] 11.0 mmol/L Normal 6.0-15.0 [facility] Comment on above: Performed By: #### C MP, CBC #### [address] Sodium [Moles/volume] in Ser um or PlasmaOrdered By: Anali Card on 02-12-2023 Sodium [Moles/Vol] 141 mmol/L Normal 136-145 [facility] Comment on above: Performed By: #### C MP, CBC #### [address] Urea nitrogen [Mass/volume] in Serum or PlasmaOrdered By: Anali Card on 02-12-2023 Urea nitrogen [Mass/Vol] 16 mg/dL Normal 7-25 [facility] Comment on above: Performed By: #### C MP, CBC #### [facility] [address] ANTICARDIOLIPIN AB (SELINA) IGG on 06-09-2022 Anticardiolipin Ab,IgG,Qn <9 Normal 0-14 [facility] Comment on above: Result Comment: Nega tive: <15 Indeterminate: 15 - 20 Low-Med Positive: >20 - 80 High Positive: >80 Performed By: #### C ARDLIP #### [facility] [address] [place] [address] Dr. Allison Neely CBC AUTO DIFFon 06-06-2022 BASO # 0.0 103/ul Normal 0.0-0.1 [facility] Comment on above: Performed By: #### C BC #### [facility] [address] [place] [address] Dr. Allison Neely Basophils/100 WBC (Bld) 0.5 % Normal 0.2-2.0 [facility] Comment on above: Performed By: #### C BC #### [facility] [address] [place] [address] Dr. Allison Neely EO # 0.1 103/ul Normal 0.0-0.7 [facility] Comment on above: Performed By: #### C BC #### [facility] [address] [place] [address] Dr. Allison Neely Eosinophils/100 WBC (Bld) 0.9 % Normal 0.9-7.0 [facility] Comment on above: Performed By: #### C BC #### [facility] [facility] [address] [place] [address] Dr. Allison Neely Erythrocyte distribution width (RBC) [Ratio] 13.7 % Normal 11.0-15.0 [facility] Comment on above: Performed By: #### C BC #### [facility] [address] [place] [address] Dr. Allison Neely Hematocrit (Bld) [Volume fraction] 41.8 % Normal 36.0-48.0 [facility] Comment on above: Performed By: #### C BC #### [facility] [address] [place] [address] Dr. Allison Neely Hemoglobin (Bld) [Mass/Vol] 13.0 g/dL Normal 12.0-16.0 [facility] Comment on above: Performed By: #### C BC #### [facility] [address] [place] [address] Dr. Allison Neely IG # 0.01 10e3/ul Normal 0.00-0.03 [facility] Comment on above: Performed By: #### C BC #### [facility] [address] [place] [address] Dr. Allison Neely IG % 0.2 % Normal 0.0-0.5 [facility] Comment on above: Performed By: #### C BC #### [facility] [address] [place] [address] Dr. Allison Neely LYMPH # 1.7 103/ul Normal 1.2-3.8 [facility] Comment on above: Performed By: #### C BC #### [facility] [address] [place] [address] Dr. Allison Neely Lymphocytes/100 WBC (Bld) 30.5 % Normal 20.5-60.0 [facility] Comment on above: Performed By: #### C BC #### [facility] [address] [place] [address] Dr. Allison Neely MANUAL DIFF REQ NO Normal [facility] Comment on above: Performed By: #### C BC #### [facility] [address] [place] [address] Dr. Allison Neely MCH (RBC) [Entitic mass] 29.7 pg Normal 26.7-34.0 [facility] Comment on above: Performed By: #### C BC #### [facility] [address] [place] [address] Dr. Allison Neely MCHC (RBC) [Mass/Vol] 31.1 g/dL Normal 29.9-35.2 [facility] Comment on above: Performed By: #### C BC #### [facility] [address] [address] [address] Allison Neely MCV (RBC) [Entitic vol] 95.7 fL Normal 81.0-99.0 [facility] Comment on above: Performed By: #### C BC #### [facility] [address] [place] [address] Dr. Allison Neely MONO # 0.3 103/ul Normal 0.3-0.8 [facility] Comment on above: Performed By: #### C BC #### [facility] [address] [place] [address] Dr. Allison Neely Monocytes/100 WBC (Bld) 5.1 % Normal 1.7-12.0 [facility] Comment on above: Performed By: #### C BC #### [facility] [address] [place] [address] Dr. Allison Neely NEUT # 3.5 103/ul Normal 1.4-6.5 [facility] Comment on above: Performed By: #### C BC #### [facility] [address] [place] [address] Dr. Allison Neely Neutrophils/100 WBC (Bld) 62.8 % Normal 43.0-75.0 [facility] Comment on above: Performed By: #### C BC #### [facility] [address] [place] [address] Dr. Allison Neely Platelet mean volume (Bld) [Entitic vol] 12.0 fL Normal 9.5-13.5 [facility] Comment on above: Performed By: #### C BC #### [facility] [address] [place] [address] Dr. Allison Neely PLT 274 103/ul Normal 150-450 [facility] Comment on above: Performed By: #### C BC #### [facility] [address] [place] [address] Dr. Allison Neely RBC 4.37 106/ul Normal 4.20-5.40 [facility] Comment on above: Performed By: #### C BC #### [facility] [address] [place] [address] Dr. Allison Neely WBC 5.6 103/ul Normal 4.0-11.0 [facility] Comment on above: Performed By: #### C BC #### [facility] [address] [place] [address] Dr. Allison Neely PROF 14(COMP METB)on 023 Albumin [Mass/Vol] 4.0 g/dL Normal 3.4-5.0 [facility] Comment on above: Performed By: #### C MP #### [facility] [address] [place] [address] Dr. Allison Neely Albumin/Globulin [Mass ratio] 1.3 {ratio} Normal [facility] Comment on above: Performed By: #### C MP #### [facility] [address] [place] [address] Dr. Allison Neely ALP [Catalytic activity/Vol] 103 U/L Normal 46-116 [facility] Comment on above: Performed By: #### C MP #### [facility] [address] [place] [address] Dr. Allison Neely ALT [Catalytic activity/Vol] 69 U/L Critically high 14-59 [facility] Comment on above: Performed By: #### C MP #### [facility] [address] [place] [address] Dr. Allison Neely Anion gap [Moles/Vol] 12.8 mmol/L Normal [facility] Comment on above: Performed By: #### C MP #### [facility] [address] [place] [address] Dr. Allison Neely AST [Catalytic activity/Vol] 30 U/L Normal 15-37 [facility] Comment on above: Performed By: #### C MP #### [facility] [address] [place] [address] Dr. Allison Neely Bilirubin [Mass/Vol] 0.4 mg/dL Normal 0.2-1.0 [facility] Comment on above: Performed By: #### C MP #### [facility] [address] [place] [address] Dr. Allison Neely Calcium [Mass/Vol] 9.3 mg/dL Normal 8.5-10.1 [facility] Comment on above: Performed By: #### C MP #### [facility] [address] [place] [address] Dr. Allison Neely Chloride [Moles/Vol] 101 mmol/L Normal 98-107 [facility] Comment on above: Performed By: #### C MP #### [facility] [address] [address] [address] Allison Neely CO2 [Moles/Vol] 29.2 mmol/L Normal 21.0-32.0 [facility] Comment on above: Performed By: #### C MP #### [facility] [address] [place] [address] Dr. Allison Neely Creatinine [Mass/Vol] 0.99 mg/dL Normal 0.55-1.02 [facility] Comment on above: Performed By: #### C MP #### [facility] [address] [place] [address] Dr. Allison Neely EGFR-AF BELIZEAN >60 Normal >=60 [facility] Comment on above: Performed By: #### C MP #### [facility] [address] [place] [address] Dr. Allison Neely EGFR-NON AF BELIZEAN 58 mL/min/1.73m2 Critically low >=60 [facility] Comment on above: Performed By: #### C MP #### [facility] [address] [place] [address] Dr. Allison Neely Globulin (S) [Mass/Vol] 3.0 g/dL Normal [facility] Comment on above: Performed By: #### C MP #### [facility] [address] [place] [address] Dr. Allison eNely Glucose [Mass/Vol] 157 mg/dL Critically high 74-106 [facility] Comment on above: Performed By: #### C MP #### [facility] [address] [place] [address] Dr. Allison Neely Potassium [Moles/Vol] 4.0 mmol/L Normal 3.5-5.1 [facility] Comment on above: Performed By: #### C MP #### [facility] [address] [place] [address] Dr. Allison Neely Protein [Mass/Vol] 7.0 g/dL Normal 6.4-8.2 [facility] Comment on above: Performed By: #### C MP #### [facility] [address] [place] [address] Dr. Allison Neely Sodium [Moles/Vol] 139 mmol/L Normal 136-145 [facility] Comment on above: Performed By: #### C MP #### [facility] [address] [place] [address] Dr. Allison Neely Urea nitrogen [Mass/Vol] 26.0 mg/dL Critically high 7.0-18 .0 [facility] Comment on above: Performed By: #### C MP #### [facility] [address] [place] [address] Dr. Allison Neely Urea nitrogen/Creatinine [Mass ratio] 26.3 mg/mg Normal [facility] Comment on above: Performed By: #### C MP #### [facility] [address] [place] [address] Dr. Allison Neely ANTICARDIOLIPIN AB (SELINA) IGG on 12-26-2021 Anticardiolipin Ab,IgG,Qn <9 Normal 0-14 [facility] Comment on above: Result Comment: Nega tive: <15 Indeterminate: 15 - 20 Low-Med Positive: >20 - 80 High Positive: >80 Performed By: #### C ARDLIP #### [facility] [address] [place] [address] Dr. Allison Neely PAP ACOG PANEL 2: 30 to 65on 08-29-2021 . . Normal [facility] Comment on above: Result Comment: Perf ormed at: WB Performed By: #### [id number] #### [facility] [address] [place] [address] Dr. Allison Neely Age Gdln ACOG Testing 30-65 Normal [facility] Comment on above: Performed By: #### [id number] #### [facility] [address] [place] [address] Dr. Allison Neely DIAGNOSIS: Comment Normal [facility] Comment on above: Result Comment: NEGA TIVE FOR INTRAEPITHELIAL LESION OR MALIGNANCY. CELLULAR CHANGES ASSOCIATED WITH ATROPHY ARE PRESENT. Performed at: WB Performed By: #### 4 [id number] #### [facility] [address] [place] [address] Dr. Allison Neely HPV Aptima Negative Normal Negative [facility] Comment on above: Result Comment: This nucleic acid amplification test detects fourteen high-risk HPV types (16,18,31,33,35,39,45,51,52,56,58,59,66,68) without differentiation. Performed at: =G Performed By: #### [id number] #### [facility] [address] [place] [address] Dr. Allison Neely Methodology: Comment Normal [facility] Comment on above: Result Comment: This liquid based ThinPrep(R) pap test was screened with the use of an image guided system. Performed at: WB Performed By: #### [id number] #### [facility] [address] [place] [address] Dr. Allison Neely Note: Comment Normal [facility] Comment on above: Result Comment: The Pap smear is a screening test designed to aid in the detection of premalignant and malignant conditions of the uterine cervix. It is not a diagnostic procedure and should not be used as the sole means of detecting cervical cancer. Both false-positive and false-negative reports do occur. . Performed at: WB Performed By: #### [id number] #### [facility] [address] [place] [address] Dr. Allison Neely Performed by: Comment Normal [facility] Comment on above: Result Comment: Nuno Solis, Auto Accessories Installer (ASCP) Performed at: WB Performed By: #### [id number] #### [facility] [address] [place] [address] Dr. Allison Neely Specimen adequacy: Comment Normal [facility] Comment on above: Result Comment: Sati sfactory for evaluation. Endocervical component may not be distinguished in cases of atrophy. Performed at: WB Performed By: #### [id number] #### [facility] [address] [address] [address] Allison Neely Activated partial thrombopla stin time (aPTT) in platelet poor plasma by coagulation aOrdered By: Anali Card on 08-26-2021 aPTT Coag (PPP) [Time] 33.9 s 25.1-36.5 [facility] Albumin [Mass/volume] in Ser um or PlasmaOrdered By: Anali Card on 08-26-2021 Albumin [Mass/Vol] 4.0 g/dL [facility] Albumin/Protein.total in 24 hour Urine by ElectrophoresisOrdered By: Anali Card on 08-26-2021 Albumin Elph (24H U) [Mass fraction] 22.6 % [facility] Automated erythrocytes count in urine sediment (number/area)Ordered By: Anali Card on 08-26-2021 RBC Auto (Urine sed) [#/Area] 0-1 [HPF] [facility] Automated leukocytes count i n urine sediment (number/area)Ordered By: Anali Card on 08-26-2021 WBC Auto (Urine sed) [#/Area] 0-1 [HPF] [facility] Basophils Auto (Bld) [#/Vol] Ordered By: Anali Card on 08-26-2021 Basophils (Bld) [#/Vol] 0.0 10*3/uL 0.0-0.2 [facility] Basophils/100 WBC Auto (Bld) Ordered By: Anali Card on 08-26-2021 Basophils/100 WBC (Bld) 0.8 % [facility] Bilirubin Test strip Ql (U)O rdered By: Anali aCrd on 08-26-2021 Bilirubin Ql (U) Negative Negative [facility] Blood hemoglobin measurement (mass/volume)Ordered By: Anali Card on 08-26-2021 Hemoglobin (Bld) [Mass/Vol] 13.5 g/dL 11.8-15.4 [facility] Blood leukocytes automated c ount (number/volume)Ordered By: Anali Card on 08-26-2021 WBC (Bld) [#/Vol] 3.3 10*3/uL 4.5-11.0 [facility] Body fluid albumin measureme nt (mass/volume)Ordered By: Anali Card on 08-26-2021 Albumin (Body fld) [Mass/Vol] 4.3 g/dL 3.2-5.5 [facility] Color Auto (U)Ordered By: Venkat ttfabriciow Kyaw on 08-26-2021 Color (U) Yellow Yellow [facility] Creatine kinase [Enzymatic a ctivity/volume] in Serum or PlasmaOrdered By: Anali Card on 08-26-2021 CK [Catalytic activity/Vol] 137 U/L 22-269 [facility] Creatinine and Glomerular fi ltration rate.predicted panel (S/P/Bld)Ordered By: Anali Card on 08-26-2021 Creatinine [Mass/Vol] 0.91 mg/dL 0.44-1.03 [facility] Dilute Morgan's viper venom timeOrdered By: Anali Card on 08-26-2021 dRVVT Coag (PPP) [Time] 39.0 s [facility] Eosinophils Auto (Bld) [#/Vo l]Ordered By: Anali Card on 08-26-2021 Eosinophils (Bld) [#/Vol] 0.1 10*3/uL 0.0-0.45 [facility] Eosinophils/100 WBC Auto (Bl d)Ordered By: Anali Card on 08-26-2021 Eosinophils/100 WBC (Bld) 4.2 % [facility] Erythrocyte distribution wid th Auto (RBC) [Ratio]Ordered By: Anali Card on 08-26-2021 Erythrocyte distribution width (RBC) [Ratio] 13.6 % 11.9-15.3 [facility] Erythrocyte sedimentation ra te by Photometric methodOrdered By: Anali Card on 08-26-2021 ESR Photometric method (Bld) [Velocity] 9 mm/hr 0-29 [facility] Estimated glomerular filtrat ion rate (GFR) non- AmericanOrdered By: Anali Card on 08-26-2021 GFR/1.73 sq M.predicted among non-blacks MDRD (S/P/Bld) [Vol rate/Area] > 60 mL/Min [facility] Gamma globulin/Protein.total in 24 hour Urine by ElectrophoresisOrdered By: Anali Card on 08-26-2021 Gamma globulin Elph (24H U) [Mass fraction] 16.7 % [facility] Globulin Calc (S) [Mass/Vol] Ordered By: Anali Card on 08-26-2021 Globulin (S) [Mass/Vol] 2.4 g/dL [facility] Hematocrit Auto (Bld) [Volum e fraction]Ordered By: Anali Card on 08-26-2021 Hematocrit (Bld) [Volume fraction] 39.9 % 34.0-46.4 [facility] Hepatitis B virus surface Ag [Presence] in Serum or Plasma by ImmunoassayOrdered By: Anali Card on 08-26-2021 HBV surface Ag IA Ql Negative Negative [facility] Hepatitis C virus RNA [Prese nce] in Serum or Plasma by MALIKA with probe detectionOrdered By: Anali Card on 08-26-2021 HCV RNA MALIKA+probe Ql N/A [facility] IgA [Mass/volume] in Serum o r PlasmaOrdered By: Anali Card on 08-26-2021 IgA [Mass/Vol] 103 mg/dL [facility] IgG [Mass/volume] in Serum o r PlasmaOrdered By: Anali Card on 08-26-2021 IgG [Mass/Vol] 617 mg/dL [facility] IgM [Mass/volume] in Serum o r PlasmaOrdered By: Anali Card on 08-26-2021 IgM [Mass/Vol] 226 mg/dL [facility] Comment on above: Performed at: [place] [facility] [address] [id number] [employer] Operator: Prakash Ballesteros PhD, Phone: [phone] Immunofixation for UrineOrde red By: Anali Card on 08-26-2021 Interpretation Immunofixation (U) [Interp] See comment [facility] Comment on above: No monoclonality det ected. Performed at: [place] [facility] [address] [id number] [employer] Operator: Prakash Ballesteros PhD, Phone: [phone] Ketones Auto test strip (U) [Mass/Vol]Ordered By: Anali Card on 08-26-2021 Ketones (U) [Mass/Vol] Negative Negative Fi [facility] Laboratory - CoagulationOrde red By: Anali Card on 08-26-2021 PT Coag (PPP) [Time] 11.1 s 9.0-12.9 [facility] - Hematology and Cell countsOrdered By: Anali Card on 08-26-2021 Nucleated RBC/100 WBC (Bld) [Ratio] 0.1 % 0-0.5 [facility] - UrinalysisOrder ed By: Anali Card on 08-26-2021 Hyaline casts LM Ql (Urine sed) 0-8 [LPF] [facility] Lupus anticoagulant [Interpr etation] in Platelet poor plasmaOrdered By: Anali Card on 08-26-2021 Lupus anticoagulant (PPP) [Interp] Comment: [facility] Comment on above: No lupus anticoagula nt was detected. Performed at: - [address] [id number] [employer] Operator: Amanda Olmedo MD, Phone: [phone] Lymphocytes Auto (Bld) [#/Vo l]Ordered By: Anali Card on 08-26-2021 Lymphocytes (Bld) [#/Vol] 1.2 10*3/uL 1.00-4.8 [facility] Lymphocytes/100 WBC Auto (Bl d)Ordered By: Anali Card on 08-26-2021 Lymphocytes/100 WBC (Bld) 37.9 % [facility] MCH Auto (RBC) [Entitic mass ]Ordered By: Anali Card on 08-26-2021 MCH (RBC) [Entitic mass] 30.7 pg 24.7-34.3 [facility] MCHC Auto (RBC) [Mass/Vol]Or dered By: Anali Card on 08-26-2021 MCHC (RBC) [Mass/Vol] 33.8 g/dL 32.0-35.0 [facility] MCV Auto (RBC) [Entitic vol] Ordered By: Anali Card on 08-26-2021 MCV (RBC) [Entitic vol] 90.6 fL 80-100 [facility] Monocytes Auto (Bld) [#/Vol] Ordered By: Anali Card on 08-26-2021 Monocytes (Bld) [#/Vol] 0.3 10*3/uL 0.0-0.8 [facility] Monocytes/100 WBC Auto (Bld) Ordered By: Anali Card on 08-26-2021 Monocytes/100 WBC (Bld) 8.5 % [facility] Neutrophils Auto (Bld) [#/Vo l]Ordered By: Anali Card on 08-26-2021 Neutrophils (Bld) [#/Vol] 1.6 10*3/uL 1.8-7.7 [facility] Neutrophils/100 WBC Auto (Bl d)Ordered By: Anali Card on 08-26-2021 Neutrophils/100 WBC (Bld) 48.6 % [facility] Nitrite Test strip Ql (U)Ord ered By: Anali Card on 08-26-2021 Nitrite Ql (U) Negative Negative [facility] No Panel InformationOrdered By: Anali Card on 08-26-2021 Estimated GFR () > 60 mL/Min [facility] Comment on above: GFR estimated refere nce range: According to KDOQI guidelines, <60 ml/min/1.73m2 is sufficient to diagnose a patient with chronic kidney disease. Hepatitis B Core Total Antibody Negative Negative [facility] Comment on above: Performed at: - [address] [id number] [employer] Operator: Prakash Ballesteros PhD, Phone: [phone] Hepatitis C RNA Comment N/A [facility] Creatinine Clearance (Chem N/A [facility] Protein Electrophoresis M-Shawn Not observed g/dL Not Observed [facility] Protein Electrophoresis Note See comment [facility] Comment on above: Protein electrophore sis scan will follow via computer, mail, or publicist delivery. Serum Immunofixation See comment [facility] Comment on above: No monoclonality det ected. Urine Random Prot Electrophor Note See comment [facility] Comment on above: Protein electrophore sis scan will follow via computer, mail, or publicist delivery. Performed at: [facility] [address] [id number] [employer] Operator: Prakash Ballesteros PhD, Phone: [phone] Platelet mean volume Auto (B ld) [Entitic vol]Ordered By: Anali Card on 08-26-2021 Platelet mean volume (Bld) [Entitic vol] 9.9 fL 6.3-10.7 [facility] Platelet poor plasma interna tional normalized ratio (INR) by coagulation assay (relatOrdered By: Anali Card on 08-26-2021 INR Coag (PPP) [Relative time] 1.0 {INR} [facility] Comment on above: INR Therapeutic Rang e [...] actual/normal Coag (PPP) [Relative time] 35.7 sec [facility] Platelets Auto (Bld) [#/Vol] Ordered By: Anali Card on 08-26-2021 Platelets (Bld) [#/Vol] 243 10*3/uL 150-450 [facility] Protein Auto test strip (U) [Mass/Vol]Ordered By: Anali Card on 08-26-2021 Protein (U) [Mass/Vol] Negative Negative Fi [facility] Protein [Mass/volume] in Ser um or PlasmaOrdered By: Anali Card on 08-26-2021 Protein [Mass/Vol] 6.7 g/dL 6.1-7.9 [facility] Protein [Mass/Vol] 6.5 g/dL [facility] Protein [Mass/volume] in Uri neOrdered By: Anali Card on 08-26-2021 Protein (U) [Mass/Vol] 9.0 mg/dL Not Estab. Fi [facility] Protein.monoclonal/Protein.t otal in 24 hour Urine by ElectrophoresisOrdered By: Anali Card on 08-26-2021 Protein.monoclonal Elph (24H U) [Mass fraction] Not observed % Not Observed [facility] RBC Auto (Bld) [#/Vol]Ordere d By: Anali Card on 08-26-2021 RBC (Bld) [#/Vol] 4.40 10*6/uL 3.60-5.00 [facility] Reagin Ab [Presence] in Seru m by RPROrdered By: Anali Card on 08-26-2021 Reagin Ab RPR Ql (S) Non-Reactive Non Reactive [facility] Comment on above: Performed at: [facility] [address] [address] [employer] Operation Machine Operator: Prakash Ballesteros PhD, Phone: [phone] Serum angiotensin converting enzyme (MARC) measurementOrdered By: Anali Card on 08-26-2021 Angiotensin converting enzyme [Catalytic activity/Vol] 33 U/L [facility] Comment on above: Performed at: [facility] [address] [id number] [employer] Operator: Prakash Ballesteros PhD, Phone: [phone] Serum globulin measurement ( mass/volume)Ordered By: Anali Card on 08-26-2021 Globulin (S) [Mass/Vol] 2.5 g/dL [facility] Serum hepatitis B virus surf marc antibody detectionOrdered By: Anali Card on 08-26-2021 HBV surface Ab Ql (S) Reactive [facility] Comment on above: Non Reactive: Incons istent with immunity, less than 10 mIU/mL Reactive: Consistent with immunity, greater than 9.9 mIU/mL Serum or plasma C reactive p rotein measurement (mass/volume)Ordered By: Anali Card on 08-26-2021 CRP [Mass/Vol] 0.5 mg/dL 0.0-1.0 [facility] Serum or plasma alanine shell otransferase measurement without P-5'-P (enzymatic activiOrdered By: Anali Card on 08-26-2021 ALT No additional P-5'-P [Catalytic activity/Vol] 37 U/L 10-60 [facility] Serum or plasma albumin/glob ulin mass ratioOrdered By: Anali Card on 08-26-2021 Albumin/Globulin [Mass ratio] 1.8 {ratio} [facility] Albumin/Globulin [Mass ratio] 1.6 {ratio} [facility] Serum or plasma alkaline kiesha sphatase measurement (enzymatic activity/volume)Ordered By: Anali Card on 08-26-2021 ALP [Catalytic activity/Vol] 41 U/L 32-92 [facility] Serum or plasma alpha 1 glob ulin measurement by electrophoresis (mass/volume)Ordered By: Anali Card on 08-26-2021 Alpha 1 globulin Elph [Mass/Vol] 0.2 g/dL [facility] Serum or plasma alpha 2 glob ulin measurement by electrophoresis (mass/volume)Ordered By: Anali Card on 08-26-2021 Alpha 2 globulin Elph [Mass/Vol] 0.6 g/dL [facility] Serum or plasma aspartate am inotransferase measurement (enzymatic activity/volume)Ordered By: Anali Card on 08-26-2021 AST [Catalytic activity/Vol] 26 U/L 10-42 [facility] Serum or plasma beta globuli n measurement by electrophoresis (mass/volume)Ordered By: Anali Card on 08-26-2021 Beta globulin Elph [Mass/Vol] 1.0 g/dL [facility] Serum or plasma calcium lenka urement (mass/volume)Ordered By: Anali Card on 08-26-2021 Calcium [Mass/Vol] 9.6 mg/dL 8.2-10.2 [facility] Serum or plasma chloride bob surement (moles/volume)Ordered By: Anali Card on 08-26-2021 Chloride [Moles/Vol] 105 mmol/L 95-114 [facility] Serum or plasma gamma globul in measurement by electrophoresis (mass/volume)Ordered By: Anali Card on 08-26-2021 Gamma globulin Elph [Mass/Vol] 0.7 g/dL [facility] Serum or plasma glucose lenka urement (mass/volume)Ordered By: Anali Card on 08-26-2021 Glucose [Mass/Vol] 108 mg/dL 70-100 [facility] Comment on above: ADA recommended refe rence [...] 08-26-2021 HCV Ab IA Ql See comment [facility] Comment on above: Negative Not infected with HCV, unless recent infection is suspected or other evidence exists to indicate HCV infection. Effective September 02, 2021 HCV Antibody reflex to MALIKA will be made non-orderable. This will affect any Custom Profile that includes [id number] HCV Antibody reflex to MALIKA. [facility] offers order code [id number] HCV Antibody RFX to Quant PCR as an alternative. Performed at: [address] [id number] [employer] Operator: Prakash Ballesteros PhD, Phone: [phone] Serum or plasma hepatitis C virus antibody signal/cutoff ratio by immunoassay (relatiOrdered By: Anali Card on 08-26-2021 HCV Ab Signal/Cutoff IA [Rel units/Vol] <0.1 s/co ratio [facility] Serum or plasma potassium me asurement (moles/volume)Ordered By: Anali Card on 08-26-2021 Potassium [Moles/Vol] 4.5 mmol/L 3.5-5.1 [facility] Serum or plasma sodium measu rement (moles/volume)Ordered By: Anali Card on 08-26-2021 Sodium [Moles/Vol] 142 mmol/L 136-146 [facility] Serum or plasma thyroglobuli n antibody assay (units/volume)Ordered By: Anali Card on 08-26-2021 Thyroglobulin Ab Qn [IU]/mL [facility] Comment on above: Thyroglobulin Antibo dy measured by [employer] Methodology Performed at: [facility] [address] [id number] [employer] Operator: Prakash Ballesteros PhD, Phone: [phone] Serum or plasma thyroperoxid ase antibody assay (units/volume)Ordered By: Anali Card on 08-26-2021 TPO Ab Qn 12 [IU]/mL [facility] Comment on above: Performed at: [facility] [address] [id number] [employer] Operator: Prakash Ballesteros PhD, Phone: [phone] Serum or plasma total biliru bin measurement (mass/volume)Ordered By: Anali Card on 08-26-2021 Bilirubin [Mass/Vol] 0.5 mg/dL 0.3-1.2 [facility] Serum or plasma total carbon dioxide measurement (moles/volume)Ordered By: Anali Card on 08-26-2021 CO2 [Moles/Vol] 26.9 mmol/L 22.0-30.0 [facility] Serum or plasma urea nitroge n measurement (mass/volume)Ordered By: Anali Card on 08-26-2021 Urea nitrogen [Mass/Vol] 17 mg/dL 9-23 [facility] Specific gravity Auto test s trip (U) [Rel density]Ordered By: Anali Card on 08-26-2021 Specific gravity (U) [Rel density] 1.017 1.001-1.03 0 [facility] Squamous epithelial cells de tection in urine sediment by light microscopyOrdered By: Anali Card on 08-26-2021 Epithelial cells.squamous LM Ql (Urine sed) None seen [HPF] [facility] TSH DL <= 0.005 mIU/L QnOrde red By: Anali Card on 08-26-2021 TSH Qn 1.43 m[IU]/L 0.45-5.33 [facility] TT plasOrdered By: Anali hall on 08-26-2021 Thrombin time Coag (PPP) [Time] 20.6 sec [facility] Thyroxine (T4) free [Mass/vo lume] in Serum or PlasmaOrdered By: Anali Card on 08-26-2021 Free T4 [Mass/Vol] 0.77 ng/dL 0.61-1.12 [facility] Urine alpha 1 globulin/total protein by electrophoresisOrdered By: Aanli Card on 08-26-2021 Alpha 1 globulin Elph (U) [Mass fraction] 7.7 % [facility] Urine alpha 2 globulin/total protein ratio by electrophoresisOrdered By: Anali Card on 08-26-2021 Alpha 2 globulin Elph (U) [Mass fraction] 15.7 % [facility] Urine bacteria detection by automated methodOrdered By: Anali Card on 08-26-2021 Bacteria Auto Ql (U) None seen None Seen [facility] Urine beta globulin measurem ent by electrophoresis (mass/volume)Ordered By: Anali Card on 08-26-2021 Beta globulin Elph (U) [Mass/Vol] 37.4 % [facility] Urine clarity by refractomet ry automatedOrdered By: Anali Card on 08-26-2021 Clarity Refractometry automated (U) Clear Clear [facility] Urine glucose measurement by automated test strip (mass/volume)Ordered By: nAali Card on 08-26-2021 Glucose Auto test strip (U) [Mass/Vol] Normal mg/dL Normal [facility] Urine hemoglobin detection b y automated test stripOrdered By: Anali Card on 08-26-2021 Hemoglobin Auto test strip Ql (U) Negative Negative [facility] Urine leukocyte esterase det ection by automated test stripOrdered By: Anali Card on 08-26-2021 Leukocyte esterase Auto test strip Ql (U) Negative Negative [facility] Urobilinogen Auto test strip (U) [Mass/Vol]Ordered By: Anali Card on 08-26-2021 Urobilinogen (U) [Mass/Vol] Normal mg/dL Normal [facility] aPTT.lupus sensitive (LA scr een)Ordered By: Anali Card on 08-26-2021 aPTT.lupus sensitive Coag (PPP) [Time] 35.3 sec [facility] aPTT.lupus sensitive/aPTT.scotty pus sensitive W excess phospholipid (screen to confirm raOrdered By: Anali Card on 08-26-2021 aPTT.lupus sensitive/aPTT.lupus sensitive W excess phospholipid Coag (PPP) [Ratio] 1.04 Ratio [facility] pH Auto test strip (U)Ordere d By: Anali Card on 08-26-2021 pH (U) 6.0 [pH] 5.0-9.0 [facility] Vital Signs Date Time Vital Sign Value Performing Clinician Faci lity 05-31-2024 09:36-0500 Body weight 103.87 kg Bill [facility]s [facility] Phone: [facility] 05-31-2024 09:36-0500 Diastolic blood pressure 90 mm[Hg] [facility] Phone: [facility] 05-31-2024 09:36-0500 Systolic blood pressure 150 mm[Hg] [facility] Phone: [facility] 03-08-2024 14:21-0500 Blood Pressure Location Oj GONZALEZ [facility] 03-08-2024 14:21-0500 Diastolic blood pressure 72 mm[Hg] Oj GONZALEZ [facility] 03-08-2024 14:21-0500 Heart rate 72 /min Oj GONZALEZ [facility] 03-08-2024 14:21-0500 Respiratory rate 16 /min Oj GONZALEZ [facility] 03-08-2024 14:21-0500 Systolic blood pressure 112 mm[Hg] Oj GONZALEZ [facility] Encounters Encounter Date Encounter Type Care Provider Facility Start: 05-31-2024 End: 05-31-2024 Bamboo flowsheet Bill Deepak DO Work Phone: [facility] Start: 05-31-2024 End: 06-08-2024 Bamboo flowsheet Bill Deepak DO Work Phone: [facility] Start: 05-31-2024 End: 06-08-2024 Clinisync Result Encounter Bill Deepak DO Work Phone: [facility] External Department Unsolicited Start: 05-31-2024 End: 05-31-2024 ambulatory BILL DEEPAK Not Available Start: 05-31-2024 End: 05-31-2024 Patient encounter procedure Bill Deepak DO Work Phone: [facility] Healthcare Start: 05-31-2024 End: 05-31-2024 Periodic preventive med est patient 40-64yrs Bill Deepak DO Work Phone: [facility] Comment on above: Well woman exam with routine gynecological exam; Encounter for screening mammogram for malignant neoplasm of breast; Insulin resistance; History of mitral valve prolapse; H/O blood clots; Blood pressure elevated without history of HTN; Skin yeast infection Start: 04-06-2024 End: 04-06-2024 ambulatory Oj GONZALEZ Facility:CD:[id number] Start: 03-08-2024 End: 03-08-2024 ambulatory Sacha Monroy Facility:[facility] Start: 03-08-2024 End: 03-08-2024 Patient encounter procedure Oj GONZALEZ [facility] Anali Start: 02-09-2024 ambulatory Sacha Monroy Facility:[facility] Start: 05-25-2023 End: 05-25-2023 ambulatory Bill Deepak [facility] Work Phone: Start: 05-25-2023 End: 05-25-2023 Departed Referred Bill Sotelo Work Phone: [facility] Start: 02-12-2023 End: 02-12-2023 ambulatory Anali Card Facility:[facility] Start: 02-12-2023 End: 02-12-2023 ambulatory MD Sacha Monroy Work Phone: [facility] Work Phone: Start: 02-12-2023 End: 02-12-2023 Patient encounter procedure MD Sacha Monroy Work Phone: [facility] [address] Work Phone: Start: 06-06-2022 End: 06-07-[address] ANALI CARD Facility:[facility] Start: 12-25-2021 End: 12-26-[address] ANALI CARD Facility:[facility] Start: 09-05-2021 End: 09-05-2021 Patient encounter procedure MD Sacha Monroy Work Phone: [facility] [address] Start: 08-26-2021 End: 08-26-2021 Patient encounter procedure MD Sacha Monroy Work Phone: [facility] [address] Start: 08-22-2021 End: 08-22-[address] LUCERO MONGE Facility:[facility] Procedures Date Procedure Procedure Detail Performing Clinician Start: 05-31-2024 IGP,APTIMA HPV,AGE GDLN Bill Piedrao DO Work Phone: Start: 06-12-2023 Mammography Bill Piedra o DO Work Phone: Start: 05-25-2023 Microscopic observat ion [Identifier] in Cervix by Cyto stain Bill Sotelo DO Work Phone: Start: 09-05-2021 Plain X-ray of bilat eral wrists MD Sacha Monroy Work Phone: Start: 09-05-2021 Plain X-ray of bilat eral hands MD Sacha Jallohy Work Phone: Laparoscopic cholecystectomy Oj HIDALGODarius Tonsillectomy Oj HIDALGODarius Plan of Treatment Date Care Activity Detail Author Start: 12-04-2026 Screening for malign ant neoplasm of colon [facility] Start: 06-06-2025 End: 06-06-2025 Patient encounter procedure 06/06/2025 9:00 AM EST Office Visit [facility] [address] [place] [address] Bill Sotelo, DO [address] [place] [address] [facility] Start: 06-12-2024 Screening for malign ant neoplasm of breast Mammogram [facility] Start: 05-31-2024 End: 07-29-2025 MG Breast - bilateral Screening Bilateral screening mammogram Imaging Routine Encounter for screening mammogram for malignant neoplasm of breast Expected: 05/31/2024, Expires: 07/29/2025 [facility] Work Phone: Comment on above: Expected: 05/31/2024 , Expires: 07/29/2025 Start: 05-25-2024 Screening for malign ant neoplasm of cervix [facility] Start: 01-03-2024 Influenza vaccination Influenza Vacc ine (#1) [facility] Start: 1965 Screening for malign ant neoplasm of colon [facility] 24 hour urine measurement [facility] Work Phone: Albumin [Mass/volume ] in Serum or Plasma [facility] Work Phone: Albumin/Globulin ratio [facility] Work Phone: Angiotensin converti ng enzyme [Enzymatic activity/volume] in Serum or Plasma [facility] Work Phone: aPTT.lupus sensitive (LA screen) [facility] Work Phone: aPTT.lupus sensitive W excess phospholipid actual/Normal (normalized LA confirm) [facility] Work Phone: aPTT.lupus sensitive/aPTT.lupus sensitive W excess phospholipid (screen to confirm ra [facility] Work Phone: dRVVT (LA screen) [facility] Work Phone: Electrophoresis: [id number] [facility] Work Phone: Electrophoresis: [id number] [facility] Work Phone: Electrophoresis: beta-globulin [facility] Work Phone: Electrophoresis: bailey ma globulin [facility] Work Phone: Globulin [Mass/volum e] in Serum [facility] Work Phone: Hepatitis B core ant ibody measurement [facility] Work Phone: Hepatitis B virus byers rface Ab [Presence] in Serum [facility] Work Phone: Hepatitis B virus byers rface Ag [Presence] in Serum or Plasma by Immunoassay [facility] Work Phone: Hepatitis C virus Ab Signal/Cutoff in Serum or Plasma by Immunoassay [facility] Work Phone: Hepatitis C virus RN A [Presence] in Serum or Plasma by MALIKA with probe detection [facility] Work Phone: IgA [Mass/volume] in Serum or Plasma [facility] Work Phone: IgG [Mass/volume] in Serum or Plasma [facility] Work Phone: IgM [Mass/volume] in Serum or Plasma [facility] Work Phone: Immunofixation for Urine [facility] Work Phone: Lupus anticoagulant [Interpretation] in Platelet poor plasma [facility] Work Phone: Measurement of monoc lonal protein concentration [facility] Work Phone: Protein [Mass/volume ] in Serum or Plasma [facility] Work Phone: Protein [Mass/volume ] in Urine [facility] Work Phone: Reagin Ab [Presence] in Serum by RPR [facility] Work Phone: Serum immunofixation [facility] Work Phone: THIN PREP TIS PAP AN D HR HPV DNA THIN PREP TIS PAP AND HR HPV DNA Pathology and Cytology Routine Well woman exam with routine gynecological exam Ordered: 05/31/2024 [facility] Healthcare Comment on above: Ordered: 05/31/2024 Thrombin time [facility] Work Phone: Thyroglobulin Ab [Units/volume] in Serum or Plasma [facility] Work Phone: Thyroperoxidase Ab [Units/volume] in Serum or Plasma [facility] Work Phone: Immunizations Immunization Date Immunization Notes Care Provider Fa annie 05-30-2020 COVID-19 mRNA-1273 (Moderna) MD Sacha Monroy Work Phone: [facility] 05-02-2020 COVID-19 mRNA-1273 (Arnoldo) MD Sacha Monroy Work Phone: [facility] 02-12-2015 influenza virus vaccine, unspecified formulation Bill Deepakgogo GARZA Work Phone: [facility] Healthcare Payers Date Payer Category Payer Self-pay [id number] 2021 [employer] [id number] 1965 Unknown [id number] 1965 Unknown [id number] 1963 Unknown [id number] 1963 Unknown [id number] 1963 Unknown [id number] 1963 Unknown [id number] 1959 Unknown [id number] Unknown [employer] [id number] Unknown [id number] Unknown [id number] Social History Date Type Detail Facility Start: 09-26-2020 End: 05-06-2023 Tobacco smoking status NHIS Never smoked tobacco (finding) [facility] Start: 1965 Sex Assigned At Female F [facility] Tobacco smoking status Never [facility] Start: 05-25-2023 End: 05-31-2024 Sex Assigned At Female [facility] Start: 05-25-2023 End: 05-31-2024 Alcoholic beverage intake Lifetime non-drinker (finding) [facility] Start: 05-25-2023 End: 05-31-2024 History of Social function [facility] Start: 1965 Sex assigned at Not on file N [facility] Functional Status Date Assessment Result Facility 03-08-2024 Functional Status N/A [facility] Anali History of Present illness Narrative 05-31-2024 Cherise Faustin, TELEGRAPH MESSENGER - 05/31/2024 9:10 AM EST Note Date & Type Note Facility 05-31-2024 History of Presen t illness Narrative Reason for Appointment: Patient ID: Juan Carlos Ogden is a 58 y.o. female who presents for Well Women Visit Patient presents today for Annual Exam. MEDICATIONS Current Outpatient Medications Medication Instructions azithromycin (Zithromax Z-Alex) 250 MG tablet As directed cetirizine (ZyrTEC ALLERGY) 10 MG tablet Every 24 hours diclofenac sodium (VOLTAREN XR) 100 mg, Oral, Daily fluticasone (Flonase Allergy Relief) 50 MCG/ACT nasal spray Every 24 hours ipratropium (Atrovent) 17 MCG/ACT inhaler Every 6 hours montelukast (Singulair) 10 MG tablet Every 24 hours Multiple Vitamin (multivitamin) capsule 1 capsule, Every 24 hours traZODone (DESYREL) 50 mg, Oral, Nightly Ventolin HFA 108 (90 Base) MCG/ACT inhaler Every 4 hours ALLERGIES No Known Allergies PROBLEMS Active Ambulatory Problems Diagnosis Date Noted No Active Ambulatory Problems Resolved Ambulatory Problems Diagnosis Date Noted No Resolved Ambulatory Problems Past Medical History: Diagnosis Date Chronic sinusitis Hx of bronchitis Pap smear for cervical cancer screening Seasonal allergies Visit for review of DEXA scan 2020 HISTORY PAST MEDICAL HISTORY SOCIAL HISTORY Past Medical History: Diagnosis Date Chronic sinusitis Hx of bronchitis Pap smear for cervical cancer screening Neg/ Dr. monge Seasonal allergies Visit for review of DEXA scan 2020 Neg/ Dr. Monge Social History Tobacco Use Smoking status: Never Smokeless tobacco: Not on file Substance Use Topics Alcohol use: Never Drug use: Not on file FAMILY HISTORY Family History Family history unknown: Yes SURGICAL HISTORY History reviewed. No pertinent surgical history. REVIEW OF SYSTEMS Review of Systems: Review of Systems Constitutional: Negative. HENT: Negative. Eyes: Negative. Respiratory: Negative. Cardiovascular: Negative. Gastrointestinal: Negative. Genitourinary: Negative. Musculoskeletal: Negative. Skin: Negative. Neurological: Negative. All other systems reviewed and are negative. Hematological: Negative. Endocrine: Negative. Allergic/Immunologic: Negative. OBJECTIVE Objective: Physical Exam Constitutional: Appearance: Normal appearance. She is well-developed. Genitourinary: Vulva normal. Breasts: Breasts are soft. Right: Normal. Left: Normal. Cardiovascular: Rate and Rhythm: Normal rate and regular rhythm. Pulmonary: Effort: Pulmonary effort is normal. Breath sounds: Normal breath sounds. Abdominal: General: Bowel sounds are normal. There is no distension. Palpations: Abdomen is soft. Tenderness: There is no abdominal tenderness. There is no guarding or rebound. Musculoskeletal: General: No swelling. Normal range of motion. Right lower leg: No edema. Left lower leg: No edema. Neurological: Mental Status: She is alert and oriented to person, place, and time. Skin: General: Skin is warm and dry. Psychiatric: Mood and Affect: Mood normal. Behavior: Behavior normal. Vitals and nursing note reviewed. Exam conducted with a facilities coordinator present. Vitals: There is no height or weight on file to calculate BMI. BP: 150/90 No LMP recorded (lmp unknown). Patient is postmenopausal. ASSESSMENT & PLAN ICD-10-CM 1. Well woman exam with routine gynecological exam Z01.419 THIN PREP TIS PAP AND HR HPV DNA 2. Encounter for screening mammogram for malignant neoplasm of breast Z12.31 Bilateral screening mammogram Bilateral screening mammogram Annual: Patient presents today for an annual exam. Patient states she is doing well and has complaints. Pap was obtained without difficulty and patient given mammogram order to have scheduled/obtained. Pt has complaints of h/o mitral valve prolapse, h/o blood clots, and elevated blood pressure and insulin resistance. Pt to be referred to [facility] cardiology. Pt being started on lisinopril(elevated BP), metformin(insulin resistance), and diflucan(for yeast) Orders Placed This Encounter Procedures Bilateral screening mammogram Follow Up: Patient is to return in one year for annual unless needed otherwise. Documented by Cherise Faustin LPN on behalf of: Bill Sotelo DO documented in this encounter [facility] Clinical Note 03-08-2024 Note Date & Type [...] Recorded SARS-CoV-2 (COVID-19) mRNA-1273 vaccine 05/02/2020 Recorded [facility] Comment on above: Result Comment: Elec tronically Signed By: CARLOS ROLDAN, Oj Moore\Date and Time Signed: 03/08/24 14:56 EST Evaluation + Plan note Note Date & Type Note Facility Evaluation + Plan note No data available for this section [facility] Evaluation note Note Date & Type Note Facility [facility]: Evaluation note Note Date & Type Note Facility Evaluation note Diagnosis Well woman exam with routine gynecological exam Routine gynecological examination Encounter for screening mammogram for malignant neoplasm of breast Insulin resistance Other abnormal glucose History of mitral valve prolapse H/O blood clots Blood pressure elevated without history of HTN Skin yeast infection Candidiasis of skin and nails documented in this encounter [facility] Hospital Discharge instructions Note Date & Type Note Facility Hospital Discharge instructions No data available for this section [facility] Progress note Note Date & Type Note Facility Progress note No data available for this section [facility] Family History Relationship Condition Age at Onset Recorded Date/T honey father Coronary artery disease Unknown Not Specified Diverticulitis of colon Unknown Mitral valve prolapse Unknown Advance Directives Advance Directive Response Recorded Date/ Time Advance [...] Roman howard 2023 End: May 25, 2023 Delivery Engineer Relationship Specialty Start Date End Date Sacha Monroy MD [address] [place] [address] PCP - General Family Medicine 05/25/23 Delivery Engineer Relationship Specialty Start Date End Date Sacha Monroy MD [address] [place] [address] PCP - General Family Medicine 05/25/23 Delivery Engineer Relationship Specialty Start Date End Date Sacha Monroy MD [address] [place] [address] PCP - General Family Medicine 05/25/23 Goals (unrecognized section and content) Goals may be documented in a n alternate sectionGoals may be documented in an alternate sectionGoals may be documented in an alternate sectionGoals may be documented in an alternate section No data available for this section INFORMATION SOURCE (unrecogn ized section and content) DATE CREATED AUTHOR 06/09/2022 [facility] DATE CREATED AUTHOR AUTHOR'S ORGANIZ ATION 06/23/2023 [facility] DATE CREATED AUTHOR AUTHOR'S ORGANIZ ATION 04/14/2024 [facility] DATE CREATED AUTHOR AUTHOR'S ORGANIZ ATION 06/01/2024 [facility] EPIC Reason for Visit (unrecogniz ed section and content) Reason Comments Well Women Visit FOR RECORDS PERTAINING TO PATIENTS WHO ARE [...] ON THE PRIMARY CLINICAL RECORDS. [facility]. provides no warranty or guarantee of the accuracy or completeness of information in this document.
--- NOTE | 2024-07-26 09:19 | PC.NURSE ---
Nursing Note Cardiac Stress Test Reviewed: Medication, allergies and patient history reviewed. Stress Test: [x ] Patient tolerated stress test well. [ ] Patient unable to tolerate walking on treadmill. Switched to Lexiscan stress test. [x] No chest pain noted per patient [ ] Chest pain that resolved prior to leaving stress lab. [x ] No dyspnea noted. [ ] Dyspnea that resolved prior to leaving stress lab. [ x] Patient left stress lab asymptomatic and hemodynamically stable. [ ] Patient taken to the Emergency Room due to non-resolving symptoms following stress test. [ x] Patient achieved target heart rate. [ ] Patient unable to achieve target heart rate. [ ] Aminophylline administered as reversal agent to Lexiscan (Regadenoson). [ ] Nitro administered. Nursing Comments:
== END 2024-07-26 07:54 | disposition home or self-care (01) ==
LOC: NM 07:53
PROVIDERS: PCP Family Medicine; Visit Provider Family Medicine
DX: I25.9 Chronic ischemic heart disease, unspecified (principal)
CPT/HCPCS: 78452; 93017; A9500

== ENCOUNTER 2024-07-27 07:12 | Outpatient (OUT) | payer BC, SELFPAY ==
--- NOTE | 2024-07-27 | MM_ITS ---
Patient Name: JUAN CARLOS LOU MR#: [id number] : 1965 Exam Date: 07/27/2024 Ordering Doctor: DR Noah Sotelo . RADIOLOGY REPORT PROCEDURE: MM TOMOSYNTHESIS SCREENING BI COMPARISON: MM TOMOSYNTHESIS SCREENING BI, 06/12/2023. MG MAMM SCREEN 3D SUMI CAD, 05/09/2021. MG MAMM SCREEN SUMI W CAD, 03/31/2017. MAMMO POST BIOPSY UNILATERAL LEFT, 05/13/2012. INDICATIONS: Screening Calculator Name NCI Breast Cancer Risk Assessment Tool 5 Year Breast Cancer Risk 1.80% Lifetime Breast Cancer Risk 8.70% Personal Breast Cancer No Personal Ovarian Cancer No Treatments None Family Cancers None LOCATION: [facility] BREAST COMPOSITION: The breasts are heterogeneously dense,which may obscure small masses. RIGHT BREAST: No significant suspicious finding. LEFT BREAST: No significant suspicious finding. No significant change has occurred. CAT 2: benign RECOMMENDATIONS: ROUTINE MAMMOGRAM AND CLINICAL EVALUATION IN 12 MONTHS. PLEASE NOTE: A NORMAL MAMMOGRAM DOES NOT EXCLUDE THE POSSIBILITY OF BREAST CANCER. A CLINICALLY SUSPICIOUS PALPABLE LUMP SHOULD BE BIOPSIED. Dictated by: Glen Coleman DO on 07/28/2024 at 07:23 Approved by: Glen Coleman DO on 07/28/2024 at 07:33
--- OUTSIDE RECORDS SUMMARY | 2024-07-27 07:13 | XMS_ITS | CCD ---
Author Organization [facility] Care Team Providers Care Residency Director Name Role Phone MD Sacha Monroy Primary Care Provider [phone] MD Vishal Card Attending Provider [phone] KYAW, DR BRIONES Admitting Unavailable CARD, DR [...] Unavailable MD Sacha Monroy Primary Care Provider [phone] MD Anali Card Attending Provider Bill Sotelo Attending Provider [phone] Bill Sotelo Attending Unavailable Bill Sotelo Admitting [...] Drug Class(es) Dates Sig (Normalized) Sig (Original) [id number] actuat albuterol 0.09 mg/actuat metered dose [...] 06-06-19 Chronic Other aftercare (1 source) Other half-way (current) drug therapy; Translations: [OTH [facility] CURRENT DRUG THERAPY] Onset: 06-08-19 Episodic Other [...] Low,>-Panic High,A-Abnormal,AA-Critical Abnormal Performed at: 01 = [address] [address] Desiree Hall MD, HPV APTIMA Negative Negative [facility] Comment on above: This nucleic acid am plification test detects fourteen high- risk HPV types (16,18,31,33,35,39,45,51,52,56,58,59,66,68) without differentiation. Performed at: =[facility] [address] [id number] Design Engineering Technician: Desiree Hall MD, Phone: [phone] Performed at: [facility] [address] [place] [id number] Design Engineering Technician: James Dixon MD, Phone: [phone] IGP, APTIMA HPV, RFX 16/18,45 Note . [facility] Comment on above: TESTS RESULT FLAG UN ITS REF RANGE LAB DIAGNOSIS: 02 NEGATIVE FOR INTRAEPITHELIAL LESION OR MALIGNANCY. CELLULAR CHANGES ASSOCIATED WITH ATROPHY ARE PRESENT. THIS SPECIMEN WAS RESCREENED PART OF OUR PATTERN SHOP SUPERVISOR PROGRAM. Specimen adequacy: 02 Satisfactory for evaluation. Endocervical and/or squamous metaplastic cells (endocervical component) are present. Performed by: 02 Bryant Samaniego, Band Sawmill Operator (ASCP) QC reviewed by: 02 Nuris Mason, Band Sawmill Operator ([facility]) . 02 Note: Note 03 The Pap [...] High,A-Abnormal,AA-Critical Abnormal Performed at: 02 [facility] [address] [address] [place] [address] James Dixon MD, 03 WB [facility] [address] [address] Desiree Hall MD, BRUSH-SPATULA CERVIX ENDOCERVIX CLINGeneral [facility] Reminderson 04-07-2024 Reminders Reminders From: Moon Wheatley LPN To: GSN - Clinical; Sent: 04/07/2024 12:50:14 EST Show up: 03/07/2034 07:00:00 EDT Subject: colonoscopy recall Due Date/Time: 04/06/2034 07:00:00 EST Reminder/Recall Patient due for screening colonoscopy 04/06/2034. [facility] Ambulatory Visit Summaryon 1 05-08-2023 Ambulatory Visit [...] you for choosing us for your care. [facility] Albino 05-25-2023 L Specimen: [id number] Received: 05/26/23 Status: MARIELA Mcgrath Num: [id number] Spec Type: Surgical Subm Dr: Bill Sotelo Tissues: A Cervical Polyp (CERVICAL POLYP) Procedures: HE/2, Gross/Micro L4 Age/ Patient Sex Location Account Attending Physician Juan Carlos Ogden 57/F LABELL [id number] Bill Sotelo SPEC NUM: [id number] RECD: 05/26/23 STATUS: MARIELA MCGRATH NUM: [id number] DARIUS: 05/25/23- SUBM DR: Bill Sotelo ENTERED: 05/26/23 [facility] DR: Anali,Lab SPEC TYPE: Surgical DEPT: ADELSO [...] in one cassette labeled A1. CPT Codes 55999 Specimen: [id number] Received: 05/26/23-1236 Status: MARIELA Mcgrath Num: [id number] Spec Type: Surgical Subm Dr: Bill Sotelo Tissues: A Cervical Polyp (CERVICAL POLYP) Procedures: HE/2, Gross/Micro L4 Patient: Juan Carlos Ogden [id number] (Continued) Signed (signature on file) Hero Neely MD 05/27/23 1009 Normal [facility] Alanine aminotransferase [En zymatic activity/volume] in Serum or PlasmaOrdered By: Anali Card on 02-12-2023 ALT [Catalytic activity/Vol] 70 U/L High 7-52 [facility] Comment on above: Performed By: #### C MP, CBC #### [facility] [address] Albumin [Mass/volume] in Ser um or Plasma by Bromocresol green (BCG) dye binding methoOrdered By: Anali Card on 02-12-2023 Albumin BCG dye [Mass/Vol] 4.3 g/dL 3.5-5.7 [facility] Alkaline phosphatase [Enzyma tic activity/volume] in Serum or PlasmaOrdered By: Anali Card on 02-12-2023 ALP [Catalytic activity/Vol] 80 U/L Normal 34-104 [facility] Comment on above: Result Comment: PERF ORMED BY: [place] [address] PATHOLOGIST [employer] SALES LEADER OLGA LIDIA CORONA M.D. Performed By: #### C MP, CBC #### [address] Aspartate aminotransferase [ Enzymatic activity/volume] in Serum or PlasmaOrdered By: Anali Kyaw on 02-12-2023 AST [Catalytic activity/Vol] 36 U/L Normal 13-39 [facility] Comment on above: Performed By: #### C MP, CBC #### [address] Automated basophil %Ordered By: Anali Kyaw on 02-12-2023 Basophils/100 WBC (Bld) 0.4 % Normal . [facility] Comment on above: Performed By: #### C MP, CBC #### [address] Automated basophil countOrde red By: Analigardenia Card on 02-12-2023 Basophils (Bld) [#/Vol] 0.0 10*3/uL Normal 0.0-0.2 [facility] Comment on above: Result Comment: PERF ORMED BY: [place] [address] PATHOLOGIST [employer] SALES LEADER OLGA LIDIA CORONA M.D. Performed By: #### C MP, CBC #### [address] Automated blood monocyte cou ntOrdered By: Analigardenia Card on 02-12-2023 Monocytes (Bld) [#/Vol] 0.4 10*3/uL Normal 0.0-0.8 [facility] Comment on above: Performed By: #### C MP, CBC #### [address] Automated eosinophil %Ordere d By: Anali Card on 02-12-2023 Eosinophils/100 WBC (Bld) 2.1 % Normal . [facility] Comment on above: Performed By: #### C MP, CBC #### [address] Automated eosinophil countOr dered By: Anali Card on 02-12-2023 Eosinophils (Bld) [#/Vol] 0.1 10*3/uL Normal 0.0-0.45 [facility] Comment on above: Performed By: #### C MP, CBC #### [address] Automated monocyte %Ordered By: Anali Lalrow on 02-12-2023 Monocytes/100 WBC (Bld) 8.2 % Normal . [facility] Comment on above: Performed By: #### C MP, CBC #### [address] Automated neutrophil %Ordere d By: Anali Kyaw on 02-12-2023 Neutrophils/100 WBC (Bld) 58.3 % Normal . [facility] Comment on above: Performed By: #### C MP, CBC #### [address] Bilirubin.total [Mass/volume ] in Serum or PlasmaOrdered By: Anali Kyaw on 02-12-2023 Bilirubin [Mass/Vol] 0.5 mg/dL Normal 0.3-1.0 [facility] Comment on above: Performed By: #### C MP, CBC #### [address] Calcium [Mass/volume] in Ser um or PlasmaOrdered By: Analigardenia Card on 02-12-2023 Calcium [Mass/Vol] 9.2 mg/dL Normal 8.6-10.3 [facility] Comment on above: Performed By: #### C MP, CBC #### [address] Carbon dioxide, total [Moles /volume] in Serum or PlasmaOrdered By: Anali Card on 02-12-2023 CO2 [Moles/Vol] 28.6 mmol/L Normal 21.0-31.0 [facility] Comment on above: Performed By: #### C MP, CBC #### [facility] [address] [place] [address] Chloride [Moles/volume] in S tex or PlasmaOrdered By: Anali Card on 02-12-2023 Chloride [Moles/Vol] 106 mmol/L Normal 98-107 [facility] Comment on above: Performed By: #### C MP, CBC #### [address] Complete Blood Count Auto Di ffon 02-12-2023 Mean Corpuscular HGB Conc 33.5 g/dL Normal 32.0-35.0 [facility] Comment on above: Performed By: #### C MP, CBC #### [facility] [address] [place] [address] NRBC% 0.1 /100{WBC} Normal 0-0.5 [facility] Comment on above: Performed By: #### C MP, CBC #### [facility] [address] [place] [address] Comprehensive Metabolic Pane albino 02-12-2023 Albumin [Mass/Vol] 4.3 g/dL Normal 3.5-5.7 [facility] Comment on above: Performed By: #### C MP, CBC #### [address] GFR/1.73 sq M.predicted MDRD (S/P/Bld) [Vol rate/Area] mL/min/{1.73_m2} Normal [facility] Comment on above: Performed By: #### C MP, CBC #### [address] Creatinine [Mass/volume] in Serum or PlasmaOrdered By: Anali Card on 02-12-2023 Creatinine [Mass/Vol] 0.93 mg/dL Normal 0.60-1.20 [facility] Comment on above: Performed By: #### C MP, CBC #### [facility] [address] [place] [address] Erythrocyte distribution wid th [Ratio] by Automated countOrdered By: Anali Card on 02-12-2023 Erythrocyte distribution width (RBC) [Ratio] 14.5 % Normal 11.9-15.3 [facility] Comment on above: Performed By: #### C MP, CBC #### [facility] [address] Erythrocytes [#/volume] in B lood by Automated countOrdered By: Anali Card on 02-12-2023 RBC (Bld) [#/Vol] 4.32 10*6/uL Normal 3.60-5.[address] [facility] Comment on above: Performed By: #### C MP, CBC #### [facility] [address] [place] [address] [place] Glucose [Mass/volume] in Ser um or PlasmaOrdered By: Anali Lalrow on 02-12-2023 Glucose [Mass/Vol] 107 mg/dL High 70-100 [facility] Comment on above: ADA recommended refe rence rangeRandom Glucose Reference Range is dependent on time and content of last meal. Glucose of more than 200 mg/dL in a nonstressed, ambulatory subject supports the diagnosis of Diabetes Mellitus. Result Comment: [place] om Glucose Reference Range is dependent on time and content of last meal. Glucose of more than 200 mg/dL in a nonstressed, ambulatory subject supports the diagnosis of Diabetes Mellitus. ADA recommended reference range Performed By: #### C MP, CBC #### [address] Hematocrit [Volume Fraction] of Blood by Automated countOrdered By: Anali Lalrow on 02-12-2023 Hematocrit (Bld) [Volume fraction] 39.2 % Normal 34.0-46.4 [facility] Comment on above: Performed By: #### C MP, CBC #### [facility] [address] [place] [address] [place] Hemoglobin [Mass/volume] in BloodOrdered By: Anali Lalrow on 02-12-2023 Hemoglobin (Bld) [Mass/Vol] 13.1 g/dL Normal 11.8-15.4 [facility] Comment on above: Performed By: #### C MP, CBC #### [address] Leukocytes [#/volume] correc henry for nucleated erythrocytes in Blood by Automated counOrdered By: Anali Lalrow on 02-12-2023 WBC corrected for nucl RBC Auto (Bld) [#/Vol] 4.9 10*3/uL 3.8-11.6 [facility] Leukocytes [#/volume] in Blo od by Automated countOrdered By: Anali Lalrow on 02-12-2023 WBC (Bld) [#/Vol] 4.9 10*3/uL Normal 3.8-11.6 [facility] Comment on above: Performed By: #### C MP, CBC #### [address] Lymphocytes [#/volume] in Bl ood by Automated countOrdered By: Analigardenia Card on 02-12-2023 Lymphocytes (Bld) [#/Vol] 1.5 10*3/uL Normal 1.00-4.8 [facility] Comment on above: Performed By: #### C MP, CBC #### [address] Lymphocytes/100 leukocytes i n Blood by Automated countOrdered By: Anali Lalrow on 02-12-2023 Lymphocytes/100 WBC (Bld) 31.0 % Normal . [facility] Comment on above: Performed By: #### C MP, CBC #### [address] MCH [Entitic mass] by Automa henry countOrdered By: Anali Kyaw on 02-12-2023 MCH (RBC) [Entitic mass] 30.4 pg Normal 24.7-34.3 [facility] Comment on above: Performed By: #### C MP, CBC #### [address] MCHC Auto (RBC) [Mass/Vol]Or dered By: Anali Card on 02-12-2023 MCHC (RBC) [Mass/Vol] 33.5 g/dL 32.0-35.0 [facility] MCV [Entitic volume] by Auto mated countOrdered By: Anali Lalrow on 02-12-2023 MCV (RBC) [Entitic vol] 90.8 fL Normal 80-100 [facility] Comment on above: Performed By: #### C MP, CBC #### [address] Neutrophils [#/volume] in Bl ood by Automated countOrdered By: Anali Lalrow on 02-12-2023 Neutrophils (Bld) [#/Vol] 2.9 10*3/uL Normal 1.8-7.7 [facility] Comment on above: Performed By: #### C MP, CBC #### [address] No Panel InformationOrdered By: Analigardenia Card on 02-12-2023 Estimated GFR (CKD-EPI) > 60.0 mL/Min [facility] Creatinine Clearance (Chem N/A [facility] Nucleated erythrocytes [Pres ence] in Blood by Automated countOrdered By: Anali Kyaw on 02-12-2023 Nucleated RBC Auto Ql (Bld) 0.1 /100{WBC} 0-0.5 [facility] Platelet mean volume [Entiti c volume] in Blood by Automated countOrdered By: Anali Lalrow on 02-12-2023 Platelet mean volume (Bld) [Entitic vol] 9.6 fL Normal 6.3-10.7 [facility] Comment on above: Performed By: #### C MP, CBC #### [address] Platelets [#/volume] in Bloo d by Automated countOrdered By: Anali Kyaw on 02-12-2023 Platelets (Bld) [#/Vol] 202 10*3/uL Normal 150-450 [facility] Comment on above: Performed By: #### C MP, CBC #### [address] Potassium [Moles/volume] in Serum or PlasmaOrdered By: Anali Card on 02-12-2023 Potassium [Moles/Vol] 4.6 mmol/L Normal 3.5-5.1 [facility] Comment on above: Performed By: #### C MP, CBC #### [facility] [address] [place] [address] Protein [Mass/volume] in Ser um or PlasmaOrdered By: Anali Card on 02-12-2023 Protein [Mass/Vol] 6.6 g/dL Normal 6.4-8.9 [facility] Comment on above: Performed By: #### C MP, CBC #### [address] Serum globulin measurement b y calculation (mass/volume)Ordered By: Anali Card on 02-12-2023 Globulin (S) [Mass/Vol] 2.3 g/dL Normal [facility] Comment on above: Performed By: #### C MP, CBC #### [address] Serum or plasma albumin/glob ulin mass ratioOrdered By: Anali Card on 02-12-2023 Albumin/Globulin [Mass ratio] 1.9 {ratio} Normal [facility] Comment on above: Performed By: #### C MP, CBC #### [address] Serum or plasma anion gap de terminationOrdered By: Anali Card on 02-12-2023 Anion gap [Moles/Vol] 11.0 mmol/L Normal 6.0-15.0 [facility] Comment on above: Performed By: #### C MP, CBC #### [address] Sodium [Moles/volume] in Ser um or PlasmaOrdered By: Anali Card on 02-12-2023 Sodium [Moles/Vol] 141 mmol/L Normal 136-145 [facility] Comment on above: Performed By: #### C MP, CBC #### [address] Urea nitrogen [Mass/volume] in Serum or PlasmaOrdered By: Anali Card on 02-12-2023 Urea nitrogen [Mass/Vol] 16 mg/dL Normal 7-25 [facility] Comment on above: Performed By: #### C MP, CBC #### [facility] [address] ANTICARDIOLIPIN AB (SELINA) IGG on 06-09-2022 Anticardiolipin Ab,IgG,Qn <9 Normal 0-14 [facility] Comment on above: Result Comment: Nega tive: <15 Indeterminate: 15 - 20 Low-Med Positive: >20 - 80 High Positive: >80 Performed By: #### C ARDLIP #### [facility] [address] [place] [address] Dr. Allison Neely CBC AUTO DIFFon 06-06-2022 BASO # 0.0 103/ul Normal 0.0-0.1 [facility] Comment on above: Performed By: #### C BC #### [facility] [address] [place] [address] Dr. Allison Neely Basophils/100 WBC (Bld) 0.5 % Normal 0.2-2.0 [facility] Comment on above: Performed By: #### C BC #### [facility] [address] [place] [address] Dr. Allison Neely EO # 0.1 103/ul Normal 0.0-0.7 [facility] Comment on above: Performed By: #### C BC #### [facility] [address] [place] [address] Dr. Allison Neely Eosinophils/100 WBC (Bld) 0.9 % Normal 0.9-7.0 [facility] Comment on above: Performed By: #### C BC #### [facility] [address] [place] [address] Dr. Allison Neely Erythrocyte distribution width (RBC) [Ratio] 13.7 % Normal 11.0-15.0 [facility] Comment on above: Performed By: #### C BC #### [facility] [address] [place] [address] Dr. Allison Neely Hematocrit (Bld) [Volume fraction] 41.8 % Normal 36.0-48.0 [facility] Comment on above: Performed By: #### C BC #### [facility] [address] [place] [address] Dr. Allison Neely Hemoglobin (Bld) [Mass/Vol] 13.0 g/dL Normal 12.0-16.0 [facility] Comment on above: Performed By: #### C BC #### [facility] [address] [place] [address] Dr. Allison Neely IG # 0.01 10e3/ul Normal 0.00-0.03 [facility] Comment on above: Performed By: #### C BC #### [facility] [address] [place] [address] Dr. Allison Neely IG % 0.2 % Normal 0.0-0.5 [facility] Comment on above: Performed By: #### C BC #### [facility] [address] [place] [address] Dr. Allison Neely LYMPH # 1.7 103/ul Normal 1.2-3.8 [facility] Comment on above: Performed By: #### C BC #### [facility] [address] [place] [address] Dr. Allison Neely Lymphocytes/100 WBC (Bld) 30.5 % Normal 20.5-60.0 [facility] Comment on above: Performed By: #### C BC #### [facility] [address] [place] [address] Dr. lAlison Neely MANUAL DIFF REQ NO Normal [facility] Comment on above: Performed By: #### C BC #### [facility] [address] [place] [address] Dr. Allison Neely MCH (RBC) [Entitic mass] 29.7 pg Normal 26.7-34.0 [facility] Comment on above: Performed By: #### C BC #### [facility] [address] [place] [address] Dr. Allison Neely MCHC (RBC) [Mass/Vol] 31.1 g/dL Normal 29.9-35.2 [facility] Comment on above: Performed By: #### C BC #### [facility] [address] [address] [address] Allison Neely MCV (RBC) [Entitic vol] 95.7 fL Normal 81.0-99.0 [facility] Comment on above: Performed By: #### C BC #### [facility] [address] [place] [address] Dr. Allison Neely MONO # 0.3 103/ul Normal 0.3-0.8 [facility] Comment on above: Performed By: #### C BC #### [facility] [address] [place] [address] Dr. Allison Neely Monocytes/100 WBC (Bld) 5.1 % Normal 1.7-12.0 [facility] Comment on above: Performed By: #### C BC #### [facility] [address] [place] [address] Dr. Allison Neely NEUT # 3.5 103/ul Normal 1.4-6.5 [facility] Comment on above: Performed By: #### C BC #### [facility] [address] [place] [address] Dr. Allison Neely Neutrophils/100 WBC (Bld) 62.8 % Normal 43.0-75.0 [facility] Comment on above: Performed By: #### C BC #### [facility] [address] [place] [address] Dr. Allison Neely Platelet mean volume (Bld) [Entitic vol] 12.0 fL Normal 9.5-13.5 [facility] Comment on above: Performed By: #### C BC #### [facility] [address] [place] [address] Dr. Allison Neely PLT 274 103/ul Normal 150-450 [facility] Comment on above: Performed By: #### C BC #### [facility] [address] [place] [address] Dr. Allison Neely RBC 4.37 106/ul Normal 4.20-5.40 [facility] Comment on above: Performed By: #### C BC #### [facility] [address] [place] [address] Dr. Allison Neely WBC 5.6 103/ul Normal 4.0-11.0 [facility] Comment on above: Performed By: #### C BC #### [facility] [address] [place] [address] Dr. Allison Neely PROF 14(COMP METB)on 023 Albumin [Mass/Vol] 4.0 g/dL Normal 3.4-5.0 [facility] Comment on above: Performed By: #### C MP #### [facility] [address] [place] [address] Dr. Allison Neely Albumin/Globulin [Mass ratio] 1.3 {ratio} Normal [facility] Comment on above: Performed By: #### C MP #### [facility] [address] [place] [address] Dr. Allison Neely ALP [Catalytic activity/Vol] 103 U/L Normal 46-116 [facility] Comment on above: Performed By: #### C MP #### [facility] [address] [place] [address] Dr. Allison Neely ALT [Catalytic activity/Vol] 69 U/L Critically high 14-59 [facility] Comment on above: Performed By: #### C MP #### [facility] [address] [place] [address] Dr. Allison Neely Anion gap [Moles/Vol] 12.8 mmol/L Normal [facility] Comment on above: Performed By: #### C MP #### [facility] [address] [place] [address] Dr. Allison Neely AST [Catalytic activity/Vol] 30 U/L Normal 15-37 [facility] Comment on above: Performed By: #### C MP #### [facility] [address] [place] [address] Dr. Allison Neely Bilirubin [Mass/Vol] 0.4 mg/dL Normal 0.2-1.0 [facility] Comment on above: Performed By: #### C MP #### [facility] [address] [place] [address] Dr. Allison Neely Calcium [Mass/Vol] 9.3 mg/dL Normal 8.5-10.1 [facility] Comment on above: Performed By: #### C MP #### [facility] [address] [place] [address] Dr. Allison Neely Chloride [Moles/Vol] 101 mmol/L Normal 98-107 [facility] Comment on above: Performed By: #### C MP #### [facility] [address] [address] [address] Allison Neely CO2 [Moles/Vol] 29.2 mmol/L Normal 21.0-32.0 [facility] Comment on above: Performed By: #### C MP #### [facility] [address] [place] [address] Dr. Allison Neely Creatinine [Mass/Vol] 0.99 mg/dL Normal 0.55-1.02 [facility] Comment on above: Performed By: #### C MP #### [facility] [address] [place] [address] Dr. Allison Neely EGFR-AF IRAQI >60 Normal >=60 [facility] Comment on above: Performed By: #### C MP #### [facility] [address] [place] [address] Dr. Allison Neely EGFR-NON AF IRAQI 58 mL/min/1.73m2 Critically low >=60 [facility] Comment on above: Performed By: #### C MP #### [facility] [address] [place] [address] Dr. Allison Neely Globulin (S) [Mass/Vol] 3.0 g/dL Normal [facility] Comment on above: Performed By: #### C MP #### [facility] [address] [place] [address] Dr. Allison Neely Glucose [Mass/Vol] 157 mg/dL Critically high 74-106 [facility] Comment on above: Performed By: #### C MP #### [facility] [address] [place] [address] Dr. Allison Neely Potassium [Moles/Vol] 4.0 mmol/L Normal 3.5-5.1 [facility] Comment on above: Performed By: #### C MP #### [facility] [address] [place] [address] Dr. Allison Neely Protein [Mass/Vol] 7.0 g/dL Normal 6.4-8.2 [facility] Comment on above: Performed By: #### C MP #### [facility] [address] [place] [address] Dr. Allison Neely Sodium [Moles/Vol] 139 mmol/L Normal 136-145 [facility] Comment on above: Performed By: #### C MP #### [facility] [address] [place] [address] Dr. Allison Neely Urea nitrogen [Mass/Vol] 26.0 mg/dL Critically high 7.0-18 .0 [facility] Comment on above: Performed By: #### C MP #### [facility] [address] [place] [address] Dr. Allison Neely Urea nitrogen/Creatinine [Mass ratio] 26.3 mg/mg Normal [facility] Comment on above: Performed By: #### C MP #### [facility] [address] [place] [address] Dr. Allison Neely ANTICARDIOLIPIN AB (SELINA) IGG on 12-26-2021 Anticardiolipin Ab,IgG,Qn <9 Normal 0-14 [facility] Comment on above: Result Comment: Nega tive: <15 Indeterminate: 15 - 20 Low-Med Positive: >20 - 80 High Positive: >80 Performed By: #### C ARDLIP #### [facility] [address] [place] [address] Dr. Allison Neely PAP ACOG PANEL 2: 30 to 65on 08-29-2021 . . Normal [facility] Comment on above: Result Comment: Perf ormed at: WB Performed By: #### [id number] #### [facility] [address] [place] [address] Dr. Allison Neely Age Gdln ACOG Testing 30-65 Normal [facility] Comment on above: Performed By: #### [id number] #### [facility] [address] [place] [address] Dr. Allison Neely DIAGNOSIS: Comment Normal [facility] Comment on above: Result Comment: NEGA TIVE FOR INTRAEPITHELIAL LESION OR MALIGNANCY. CELLULAR CHANGES ASSOCIATED WITH ATROPHY ARE PRESENT. Performed at: WB Performed By: #### [id number] #### [facility] [address] [place] [address] Dr. Allison Neely HPV Aptima Negative Normal Negative [facility] Comment on above: Result Comment: This nucleic acid amplification test detects fourteen high-risk HPV types (16,18,31,33,35,39,45,51,52,56,58,59,66,68) without differentiation. Performed at: =G Performed By: #### [id number] #### [facility] [address] [place] [address] Dr. Allison Neely Methodology: Comment Normal [facility] Comment on above: Result Comment: This liquid based ThinPrep(R) pap test was screened with the use of an image guided system. Performed at: WB Performed By: #### [id number] #### [facility] [address] [place] [address] Dr. Allison Neely Note: Comment Normal [facility] Comment on above: Result Comment: The Pap smear is a screening test designed to aid in the detection of premalignant and malignant conditions of the uterine cervix. It is not a diagnostic procedure and should not be used as the sole means of detecting cervical cancer. Both false-positive and false-negative reports do occur. . Performed at: WB Performed By: #### [id number] #### [facility] [address] [place] [address] Dr. Allison Neely Performed by: Comment Normal [facility] Comment on above: Result Comment: Nuno Solis, Band Sawmill Operator (ASCP) Performed at: WB Performed By: #### [id number] #### [facility] [address] [place] [address] Dr. Allison Neely Specimen adequacy: Comment Normal [facility] Comment on above: Result Comment: Sati sfactory for evaluation. Endocervical component may not be distinguished in cases of atrophy. Performed at: WB Performed By: #### [id number] #### [facility] [address] [address] [address] Allison Neely Activated partial thrombopla stin time (aPTT) in platelet poor plasma by coagulation aOrdered By: Anali Card on 08-26-2021 aPTT Coag (PPP) [Time] 33.9 s 25.1-36.5 [facility] Albumin [Mass/volume] in Ser um or PlasmaOrdered By: Anali Card on 08-26-2021 Albumin [Mass/Vol] 4.0 g/dL [facility] Albumin/Protein.total in 24 hour Urine by ElectrophoresisOrdered By: Anali Card on 08-26-2021 Albumin Elph (24H U) [Mass fraction] 22.6 % [facility] Automated erythrocytes count in urine sediment (number/area)Ordered By: Anali Card on 08-26-2021 RBC Auto (Urine sed) [#/Area] 0-1 [HPF] [facility] Automated leukocytes count i n urine sediment (number/area)Ordered By: Anali Card on 08-26-2021 WBC Auto (Urine sed) [#/Area] 0-1 [HPF] [facility] Basophils Auto (Bld) [#/Vol] Ordered By: Anali Card on 08-26-2021 Basophils (Bld) [#/Vol] 0.0 10*3/uL 0.0-0.2 [facility] Basophils/100 WBC Auto (Bld) Ordered By: Anali Card on 08-26-2021 Basophils/100 WBC (Bld) 0.8 % [facility] Bilirubin Test strip Ql (U)O rdered By: Anali Card on 08-26-2021 Bilirubin Ql (U) Negative Negative [facility] Blood hemoglobin measurement (mass/volume)Ordered By: Aanli Card on 08-26-2021 Hemoglobin (Bld) [Mass/Vol] 13.5 g/dL 11.8-15.4 [facility] Blood leukocytes automated c ount (number/volume)Ordered By: Anali Card on 08-26-2021 WBC (Bld) [#/Vol] 3.3 10*3/uL 4.5-11.0 [facility] Body fluid albumin measureme nt (mass/volume)Ordered By: Anali Card on 08-26-2021 Albumin (Body fld) [Mass/Vol] 4.3 g/dL 3.2-5.5 [facility] Color Auto (U)Ordered By: Venkat ttfabriciow Kyaw on 08-26-2021 Color (U) Yellow Yellow [facility] Creatine kinase [Enzymatic a ctivity/volume] in Serum or PlasmaOrdered By: Anali Card on 08-26-2021 CK [Catalytic activity/Vol] 137 U/L 22-269 [facility] Creatinine and Glomerular fi ltration rate.predicted panel (S/P/Bld)Ordered By: Anali Card on 08-26-2021 Creatinine [Mass/Vol] 0.91 mg/dL 0.44-1.03 [facility] Dilute Morgan's viper venom timeOrdered By: Anali Card on 08-26-2021 dRVVT Coag (PPP) [Time] 39.0 s [facility] Eosinophils Auto (Bld) [#/Vo l]Ordered By: Anali Card on 08-26-2021 Eosinophils (Bld) [#/Vol] 0.1 10*3/uL 0.0-0.45 [facility] Eosinophils/100 WBC Auto (Bl d)Ordered By: Anali Card on 08-26-2021 Eosinophils/100 WBC (Bld) 4.2 % [facility] Erythrocyte distribution wid th Auto (RBC) [Ratio]Ordered By: Anali Card on 08-26-2021 Erythrocyte distribution width (RBC) [Ratio] 13.6 % 11.9-15.3 [facility] Erythrocyte sedimentation ra te by Photometric methodOrdered By: Anali Card on 08-26-2021 ESR Photometric method (Bld) [Velocity] 9 mm/hr 0-29 [facility] Estimated glomerular filtrat ion rate (GFR) non- AmericanOrdered By: Anali Card on 08-26-2021 GFR/1.73 sq M.predicted among non-blacks MDRD (S/P/Bld) [Vol rate/Area] > 60 mL/Min [facility] Gamma globulin/Protein.total in 24 hour Urine by ElectrophoresisOrdered By: Anali Card on 08-26-2021 Gamma globulin Elph (24H U) [Mass fraction] 16.7 % [facility] Globulin Calc (S) [Mass/Vol] Ordered By: Anali Card on 08-26-2021 Globulin (S) [Mass/Vol] 2.4 g/dL [facility] Hematocrit Auto (Bld) [Volum e fraction]Ordered By: Anali Card on 08-26-2021 Hematocrit (Bld) [Volume fraction] 39.9 % 34.0-46.4 [facility] Hepatitis B virus surface Ag [Presence] in Serum or Plasma by ImmunoassayOrdered By: Anali Card on 08-26-2021 HBV surface Ag IA Ql Negative Negative [facility] Hepatitis C virus RNA [Prese nce] in Serum or Plasma by MALIKA with probe detectionOrdered By: Anali Card on 08-26-2021 HCV RNA MALIKA+probe Ql N/A [facility] IgA [Mass/volume] in Serum o r PlasmaOrdered By: Anali Card on 08-26-2021 IgA [Mass/Vol] 103 mg/dL [facility] IgG [Mass/volume] in Serum o r PlasmaOrdered By: Anali Card on 08-26-2021 IgG [Mass/Vol] 617 mg/dL [facility] IgM [Mass/volume] in Serum o r PlasmaOrdered By: Anali Card on 08-26-2021 IgM [Mass/Vol] 226 mg/dL [facility] Comment on above: Performed at: [email or web address] [address] [id number] Design Engineering Technician: Prakash Ballesteros PhD, Phone: [phone] Immunofixation for UrineOrde red By: Anali Card on 08-26-2021 Interpretation Immunofixation (U) [Interp] See comment [facility] Comment on above: No monoclonality det ected. Performed at: [email or web address] [address] [id number] Design Engineering Technician: Prakash Ballesteros PhD, Phone: [phone] Ketones Auto test strip (U) [Mass/Vol]Ordered By: Anali Card on 08-26-2021 Ketones (U) [Mass/Vol] Negative Negative [facility] - CoagulationOrde red By: Anali Card on 08-26-2021 PT Coag (PPP) [Time] 11.1 s 9.0-12.9 [facility] - Hematology and Cell countsOrdered By: Anali Card on 08-26-2021 Nucleated RBC/100 WBC (Bld) [Ratio] 0.1 % 0-0.5 [facility] - UrinalysisOrder ed By: Anali Card on 08-26-2021 Hyaline casts LM Ql (Urine sed) 0-8 [LPF] [facility] Lupus anticoagulant [Interpr etation] in Platelet poor plasmaOrdered By: Anali Card on 08-26-2021 Lupus anticoagulant (PPP) [Interp] Comment: [facility] Comment on above: No lupus anticoagula nt was detected. Performed at: - [address] [id number] Design Engineering Technician: Amanda Olmedo MD, Phone: [phone] Lymphocytes Auto (Bld) [#/Vo l]Ordered By: Anali Card on 08-26-2021 Lymphocytes (Bld) [#/Vol] 1.2 10*3/uL 1.00-4.8 [facility] Lymphocytes/100 WBC Auto (Bl d)Ordered By: Anali Card on 08-26-2021 Lymphocytes/100 WBC (Bld) 37.9 % [facility] MCH Auto (RBC) [Entitic mass ]Ordered By: Anali Card on 08-26-2021 MCH (RBC) [Entitic mass] 30.7 pg 24.7-34.3 [facility] MCHC Auto (RBC) [Mass/Vol]Or dered By: Anali Card on 08-26-2021 MCHC (RBC) [Mass/Vol] 33.8 g/dL 32.0-35.0 [facility] MCV Auto (RBC) [Entitic vol] Ordered By: Anali Card on 08-26-2021 MCV (RBC) [Entitic vol] 90.6 fL 80-100 [facility] Monocytes Auto (Bld) [#/Vol] Ordered By: Anali Card on 08-26-2021 Monocytes (Bld) [#/Vol] 0.3 10*3/uL 0.0-0.8 [facility] Monocytes/100 WBC Auto (Bld) Ordered By: Anali Card on 08-26-2021 Monocytes/100 WBC (Bld) 8.5 % [facility] Neutrophils Auto (Bld) [#/Vo l]Ordered By: Anali Card on 08-26-2021 Neutrophils (Bld) [#/Vol] 1.6 10*3/uL 1.8-7.7 [facility] Neutrophils/100 WBC Auto (Bl d)Ordered By: Anali Card on 08-26-2021 Neutrophils/100 WBC (Bld) 48.6 % [facility] Nitrite Test strip Ql (U)Ord ered By: Anali Card on 08-26-2021 Nitrite Ql (U) Negative Negative [facility] No Panel InformationOrdered By: Anali Card on 08-26-2021 Estimated GFR () > 60 mL/Min [facility] Comment on above: GFR estimated refere nce range: According to KDOQI guidelines, <60 ml/min/1.73m2 is sufficient to diagnose a patient with chronic kidney disease. Hepatitis B Core Total Antibody Negative Negative [facility] Comment on above: Performed at: - [address] [id number] Design Engineering Technician: Prakash Ballesteros PhD, Phone: [phone] Hepatitis C RNA Comment N/A [facility] Creatinine Clearance (Chem N/A [facility] Protein Electrophoresis M-Shawn Not observed g/dL Not Observed [facility] Protein Electrophoresis Note See comment [facility] Comment on above: Protein electrophore sis scan will follow via computer, mail, or strap folding machine operator delivery. Serum Immunofixation See comment [facility] Comment on above: No monoclonality det ected. Urine Random Prot Electrophor Note See comment [facility] Comment on above: Protein electrophore sis scan will follow via computer, mail, or strap folding machine operator delivery. Performed at: [facility] [id number] Design Engineering Technician: Prakash Ballesteros PhD, Phone: [phone] Platelet mean volume Auto (B ld) [Entitic vol]Ordered By: Anali Card on 08-26-2021 Platelet mean volume (Bld) [Entitic vol] 9.9 fL 6.3-10.7 [facility] Platelet poor plasma interna tional normalized ratio (INR) by coagulation assay (relatOrdered By: Anali Card on 08-26-2021 INR Coag (PPP) [Relative time] 1.0 {INR} [facility] Comment on above: INR Therapeutic Rang [...] actual/normal Coag (PPP) [Relative time] 35.7 sec [facility] Platelets Auto (Bld) [#/Vol] Ordered By: Anali Card on 08-26-2021 Platelets (Bld) [#/Vol] 243 10*3/uL 150-450 [facility] Protein Auto test strip (U) [Mass/Vol]Ordered By: Anali Card on 08-26-2021 Protein (U) [Mass/Vol] Negative Negative [facility] Protein [Mass/volume] in Ser um or PlasmaOrdered By: Anali Card on 08-26-2021 Protein [Mass/Vol] 6.7 g/dL 6.1-7.9 [facility] Protein [Mass/Vol] 6.5 g/dL [facility] Protein [Mass/volume] in Uri neOrdered By: Anali Card on 08-26-2021 Protein (U) [Mass/Vol] 9.0 mg/dL Not Estab. [facility] Protein.monoclonal/Protein.t otal in 24 hour Urine by ElectrophoresisOrdered By: Anali Card on 08-26-2021 Protein.monoclonal Elph (24H U) [Mass fraction] Not observed % Not Observed [facility] RBC Auto (Bld) [#/Vol]Ordere d By: Anali Card on 08-26-2021 RBC (Bld) [#/Vol] 4.40 10*6/uL 3.60-5.[address] [facility] Reagin Ab [Presence] in Seru m by RPROrdered By: Anali Card on 08-26-2021 Reagin Ab RPR Ql (S) Non-Reactive Non Reactive [facility] Comment on above: Performed at: [facility] [address] [id number] Design Engineering Technician: Prakash Ballesteros PhD, Phone: [phone] Serum angiotensin converting enzyme (MARC) measurementOrdered By: Anali Card on 08-26-2021 Angiotensin converting enzyme [Catalytic activity/Vol] 33 U/L [facility] Comment on above: Performed at: [facility] [address] [id number] Design Engineering Technician: Prakash Ballesteros PhD, Phone: [phone] Serum globulin measurement ( mass/volume)Ordered By: Anali Card on 08-26-2021 Globulin (S) [Mass/Vol] 2.5 g/dL [facility] Serum hepatitis B virus surf marc antibody detectionOrdered By: Anali Card on 08-26-2021 HBV surface Ab Ql (S) Reactive [facility] Comment on above: Non Reactive: Incons istent with immunity, less than 10 mIU/mL Reactive: Consistent with immunity, greater than 9.9 mIU/mL Serum or plasma C reactive p rotein measurement (mass/volume)Ordered By: Anali Card on 08-26-2021 CRP [Mass/Vol] 0.5 mg/dL 0.0-1.0 [facility] Serum or plasma alanine shell otransferase measurement without P-5'-P (enzymatic activiOrdered By: Anali Card on 08-26-2021 ALT No additional P-5'-P [Catalytic activity/Vol] 37 U/L 10-60 [facility] Serum or plasma albumin/glob ulin mass ratioOrdered By: Anali Card on 08-26-2021 Albumin/Globulin [Mass ratio] 1.8 {ratio} [facility] Albumin/Globulin [Mass ratio] 1.6 {ratio} [facility] Serum or plasma alkaline kiesha sphatase measurement (enzymatic activity/volume)Ordered By: Anali Card on 08-26-2021 ALP [Catalytic activity/Vol] 41 U/L 32-92 [facility] Serum or plasma alpha 1 glob ulin measurement by electrophoresis (mass/volume)Ordered By: Anali Card on 08-26-2021 Alpha 1 globulin Elph [Mass/Vol] 0.2 g/dL [facility] Serum or plasma alpha 2 glob ulin measurement by electrophoresis (mass/volume)Ordered By: Anali Card on 08-26-2021 Alpha 2 globulin Elph [Mass/Vol] 0.6 g/dL [facility] Serum or plasma aspartate am inotransferase measurement (enzymatic activity/volume)Ordered By: Anali Card on 08-26-2021 AST [Catalytic activity/Vol] 26 U/L 10-42 [facility] Serum or plasma beta globuli n measurement by electrophoresis (mass/volume)Ordered By: Anali Card on 08-26-2021 Beta globulin Elph [Mass/Vol] 1.0 g/dL [facility] Serum or plasma calcium lenka urement (mass/volume)Ordered By: Anali Card on 08-26-2021 Calcium [Mass/Vol] 9.6 mg/dL 8.2-10.2 [facility] Serum or plasma chloride bob surement (moles/volume)Ordered By: Anali Card on 08-26-2021 Chloride [Moles/Vol] 105 mmol/L 95-114 [facility] Serum or plasma gamma globul in measurement by electrophoresis (mass/volume)Ordered By: Anali Card on 08-26-2021 Gamma globulin Elph [Mass/Vol] 0.7 g/dL [facility] Serum or plasma glucose lenka urement (mass/volume)Ordered By: Anali Card on 08-26-2021 Glucose [Mass/Vol] 108 mg/dL 70-100 [facility] Comment on above: ADA recommended [...] 08-26-2021 HCV Ab IA Ql See comment [facility] Comment on above: Negative Not infected with HCV, unless recent infection is suspected or other evidence exists to indicate HCV infection. Effective September 02, 2021 HCV Antibody reflex to MALIKA will be made non-orderable. This will affect any Custom Profile that includes 508396 HCV Antibody reflex to MALIKA. [facility] offers order code [id number] HCV Antibody RFX to Quant PCR as an alternative. Performed at: [address] [id number] Design Engineering Technician: Prakash Ballesteros PhD, Phone: [phone] Serum or plasma hepatitis C virus antibody signal/cutoff ratio by immunoassay (relatiOrdered By: Anali Card on 08-26-2021 HCV Ab Signal/Cutoff IA [Rel units/Vol] <0.1 s/co ratio [facility] Serum or plasma potassium me asurement (moles/volume)Ordered By: Anali Card on 08-26-2021 Potassium [Moles/Vol] 4.5 mmol/L 3.5-5.1 [facility] Serum or plasma sodium measu rement (moles/volume)Ordered By: Anali Card on 08-26-2021 Sodium [Moles/Vol] 142 mmol/L 136-146 [facility] Serum or plasma thyroglobuli n antibody assay (units/volume)Ordered By: Anali Card on 08-26-2021 Thyroglobulin Ab Qn [IU]/mL [facility] Comment on above: Thyroglobulin Antibo dy measured by [employer] Performed at: [facility] [address] [id number] Design Engineering Technician: Prakash Ballesteros PhD, Phone: [phone] Serum or plasma thyroperoxid ase antibody assay (units/volume)Ordered By: Anali Card on 08-26-2021 TPO Ab Qn 12 [IU]/mL [facility] Comment on above: Performed at: [facility] [address] [id number] Design Engineering Technician: Prakash Ballesteros PhD, Phone: [phone] Serum or plasma total biliru bin measurement (mass/volume)Ordered By: Anali Card on 08-26-2021 Bilirubin [Mass/Vol] 0.5 mg/dL 0.3-1.2 [facility] Serum or plasma total carbon dioxide measurement (moles/volume)Ordered By: Anali Card on 08-26-2021 CO2 [Moles/Vol] 26.9 mmol/L 22.0-30.0 [facility] Serum or plasma urea nitroge n measurement (mass/volume)Ordered By: Anali Card on 08-26-2021 Urea nitrogen [Mass/Vol] 17 mg/dL 9-23 [facility] Specific gravity Auto test s trip (U) [Rel density]Ordered By: Anali Card on 08-26-2021 Specific gravity (U) [Rel density] 1.017 1.001-1.03 0 [facility] Squamous epithelial cells de tection in urine sediment by light microscopyOrdered By: Anail Card on 08-26-2021 Epithelial cells.squamous LM Ql (Urine sed) None seen [HPF] [facility] TSH DL <= 0.005 mIU/L QnOrde red By: Anali Card on 08-26-2021 TSH Qn 1.43 m[IU]/L 0.45-5.33 [facility] TT plasOrdered By: Anali hall on 08-26-2021 Thrombin time Coag (PPP) [Time] 20.6 sec [facility] Thyroxine (T4) free [Mass/vo lume] in Serum or PlasmaOrdered By: Anali Card on 08-26-2021 Free T4 [Mass/Vol] 0.77 ng/dL 0.61-1.12 [facility] Urine alpha 1 globulin/total protein by electrophoresisOrdered By: Anali Card on 08-26-2021 Alpha 1 globulin Elph (U) [Mass fraction] 7.7 % [facility] Urine alpha 2 globulin/total protein ratio by electrophoresisOrdered By: Anali Card on 08-26-2021 Alpha 2 globulin Elph (U) [Mass fraction] 15.7 % [facility] Urine bacteria detection by automated methodOrdered By: Anali Card on 08-26-2021 Bacteria Auto Ql (U) None seen None Seen [facility] Urine beta globulin measurem ent by electrophoresis (mass/volume)Ordered By: Anali Card on 08-26-2021 Beta globulin Elph (U) [Mass/Vol] 37.4 % [facility] Urine clarity by refractomet ry automatedOrdered By: Anali Card on 08-26-2021 Clarity Refractometry automated (U) Clear Clear [facility] Urine glucose measurement by automated test strip (mass/volume)Ordered By: Anali Card on 08-26-2021 Glucose Auto test strip (U) [Mass/Vol] Normal mg/dL Normal [facility] Urine hemoglobin detection b y automated test stripOrdered By: Anali Card on 08-26-2021 Hemoglobin Auto test strip Ql (U) Negative Negative [facility] Urine leukocyte esterase det ection by automated test stripOrdered By: Anali Card on 08-26-2021 Leukocyte esterase Auto test strip Ql (U) Negative Negative [facility] Urobilinogen Auto test strip (U) [Mass/Vol]Ordered By: Anali Card on 08-26-2021 Urobilinogen (U) [Mass/Vol] Normal mg/dL Normal [facility] aPTT.lupus sensitive (LA scr een)Ordered By: Anali Card on 08-26-2021 aPTT.lupus sensitive Coag (PPP) [Time] 35.3 sec [facility] aPTT.lupus sensitive/aPTT.scotty pus sensitive W excess phospholipid (screen to confirm raOrdered By: Anali Card on 08-26-2021 aPTT.lupus sensitive/aPTT.lupus sensitive W excess phospholipid Coag (PPP) [Ratio] 1.04 Ratio [facility] pH Auto test strip (U)Ordere d By: Anali Card on 08-26-2021 pH (U) 6.0 [pH] 5.0-9.0 [facility] Vital Signs Date Time Vital Sign Value Performing Clinician Faci lity 05-31-2024 09:36-0500 Body weight 103.87 kg Bill [employer] Phone: [facility] 05-31-2024 09:36-0500 Diastolic blood pressure 90 mm[Hg] [facility] [employer] Phone: [facility] 05-31-2024 09:36-0500 Systolic blood pressure 150 mm[Hg] [facility] Phone: [facility] 03-08-2024 14:21-0500 Blood Pressure Location [facility] 03-08-2024 14:21-0500 Diastolic blood pressure 72 mm[Hg] Oj [facility] 03-08-2024 14:21-0500 Heart rate 72 /min Oj G[facility] 03-08-2024 14:21-0500 Respiratory rate 16 /min Oj GONZ[facility] 03-08-2024 14:21-0500 Systolic blood pressure 112 mm[Hg] Oj GONZALEZ [facility] [place] Encounters Encounter Date Encounter Type Care Provider Facility Start: 05-31-2024 End: 05-31-2024 Bamboo flowsheet Bill Deepak DO Work Phone: [facility] Start: 05-31-2024 End: 06-08-2024 Bamboo flowsheet Bill Deepak DO Work Phone: [facility] Start: 05-31-2024 End: 06-08-2024 Clinisync Result Encounter Bill Deepak DO Work Phone: [facility] External Department Unsolicited Start: 05-31-2024 End: 05-31-2024 ambulatory BILL DEEPAK Not Available Start: 05-31-2024 End: 05-31-2024 Patient encounter procedure Bill Deepak DO Work Phone: [facility] Start: 05-31-2024 End: 05-31-2024 Periodic preventive med est patient 40-64yrs Bill Deepak DO Work Phone: [facility] [facility] Comment on above: Well woman exam with routine gynecological exam; Encounter for screening mammogram for malignant neoplasm of breast; Insulin resistance; History of mitral valve prolapse; H/O blood clots; Blood pressure elevated without history of HTN; Skin yeast infection Start: 04-06-2024 End: 04-06-2024 ambulatory Oj GONZALEZ Facility:CD:[id number] Start: 03-08-2024 End: 03-08-2024 ambulatory Sacha Monroy Facility:[facility] Start: 03-08-2024 End: 03-08-2024 Patient encounter procedure Oj GONZALEZ [facility] Anali Start: 02-09-2024 ambulatory Sacha Monroy Facility:[facility] Start: 05-25-2023 End: 05-25-2023 ambulatory Bill Deepak [facility] Work Phone: Start: 05-25-2023 End: 05-25-2023 Departed Referred Bill Sotelo Work Phone: [facility] Start: 02-12-2023 End: 02-12-2023 ambulatory Anali Card Facility:[facility] Start: 02-12-2023 End: 02-12-2023 ambulatory MD Sacha Monroy Work Phone: [facility] Work Phone: Start: 02-12-2023 End: 02-12-2023 Patient encounter procedure MD Sacha Monroy Work Phone: [facility] [address] Work Phone: Start: 06-06-2022 End: 06-07-[address] ANALI CARD Facility:[facility] Start: 12-25-2021 End: 12-26-[address] ANALI CARD Facility:[facility] Start: 09-05-2021 End: 09-05-2021 Patient encounter procedure MD Sacha Monroy Work Phone: [facility]-XRay [address] Start: 08-26-2021 End: 08-26-2021 Patient encounter procedure MD Sacha Monroy Work Phone: [facility] [address] Start: 08-22-2021 [...] Screening for malign ant neoplasm of colon [facility] Start: 06-06-2025 End: 06-06-2025 Patient encounter procedure 06/06/2025 9:00 AM EST Office Visit [facility] [address] [place] [address] Bill Sotelo, DO [address] [place] [address] [facility] Start: 06-12-2024 Screening for malign ant neoplasm of breast Mammogram [facility] Start: 05-31-2024 End: 07-29-2025 MG Breast - bilateral Screening Bilateral screening mammogram Imaging Routine Encounter for screening mammogram for malignant neoplasm of breast Expected: 05/31/2024, Expires: 07/29/2025 [facility] Work Phone: Comment on above: Expected: 05/31/2024 , Expires: 07/29/2025 Start: 05-25-2024 Screening for malign ant neoplasm of cervix [facility] Start: 01-03-2024 Influenza vaccination Influenza Vacc ine (#1) [facility] Start: 1965 Screening for malign ant neoplasm of colon [facility] 24 hour urine measurement [facility] Work Phone: Albumin [Mass/volume ] in Serum or Plasma [facility] Work Phone: Albumin/Globulin ratio [facility] Work Phone: Angiotensin converti ng enzyme [Enzymatic activity/volume] in Serum or Plasma [facility] Work Phone: aPTT.lupus sensitive (LA screen) [facility] Work Phone: aPTT.lupus sensitive W excess phospholipid actual/Normal (normalized LA confirm) [facility] Work Phone: aPTT.lupus sensitive/aPTT.lupus sensitive W excess phospholipid (screen to confirm ra [facility] Work Phone: dRVVT (LA screen) [facility] Work Phone: Electrophoresis: [id number] [facility] Work Phone: Electrophoresis: [id number] [facility] Work Phone: Electrophoresis: beta-globulin [facility] Work Phone: Electrophoresis: bailey ma globulin [facility] Work Phone: Globulin [Mass/volum e] in Serum [facility] Work Phone: Hepatitis B core ant ibody measurement [facility] Work Phone: Hepatitis B virus byers rface Ab [Presence] in Serum [facility] Work Phone: Hepatitis B virus byers rface Ag [Presence] in Serum or Plasma by Immunoassay [facility] Work Phone: Hepatitis C virus Ab Signal/Cutoff in Serum or Plasma by Immunoassay [facility] Work Phone: Hepatitis C virus RN A [Presence] in Serum or Plasma by MALIKA with probe detection [facility] Work Phone: IgA [Mass/volume] in Serum or Plasma [facility] Work Phone: IgG [Mass/volume] in Serum or Plasma [facility] Work Phone: IgM [Mass/volume] in Serum or Plasma [facility] Work Phone: Immunofixation for Urine [facility] Work Phone: Lupus anticoagulant [Interpretation] in Platelet poor plasma [facility] Work Phone: Measurement of monoc lonal protein concentration [facility] Work Phone: Protein [Mass/volume ] in Serum or Plasma [facility] Work Phone: Protein [Mass/volume ] in Urine [facility] Work Phone: Reagin Ab [Presence] in Serum by RPR [facility] Work Phone: Serum immunofixation [facility] Work Phone: THIN PREP TIS PAP AN D HR HPV DNA THIN PREP TIS PAP AND HR HPV DNA Pathology and Cytology Routine Well woman exam with routine gynecological exam Ordered: 05/31/2024 [facility] Comment on above: Ordered: 05/31/2024 Thrombin time [facility] Work Phone: Thyroglobulin Ab [Units/volume] in Serum or Plasma [facility] Work Phone: Thyroperoxidase Ab [Units/volume] in Serum or Plasma [facility] Work Phone: Immunizations Immunization Date Immunization Notes Care Provider Fa annie 05-30-2020 COVID-19 mRNA-1273 (Moderna) MD Sacha Monroy Work Phone: [facility] 05-02-2020 COVID-19 mRNA-1273 (Arnoldo) MD Sacha Monroy Work Phone: [facility] 02-12-2015 influenza virus vaccine, unspecified formulation Bill Deepakgogo GARZA Work Phone: [facility] Payers Date Payer Category Payer Self-pay [id number] 2021 [facility] [id number] 1965 Unknown [id number] 1965 Unknown [id number] 1963 Unknown [id number] 1963 Unknown [id number] [id number] 1965 Unknown [id number] 1963 Unknown [id number] 1959 Unknown [id number] Unknown [employer] [id number] Unknown [id number] Unknown [id number] Social History Date Type Detail Facility Start: 09-26-2020 End: 05-06-2023 Tobacco smoking status NHIS Never smoked tobacco (finding) [facility] Start: 1965 Sex Assigned At Female F [facility] Tobacco smoking status Never [facility] [place] Start: 05-25-2023 End: 05-31-2024 Sex Assigned At Female [facility] Start: 05-25-2023 End: 05-31-2024 Alcoholic beverage intake Lifetime non-drinker (finding) [facility] Start: 05-25-2023 End: 05-31-2024 History of Social function [facility] Start: 1965 Sex assigned at Not on file [facility] Functional Status Date Assessment Result Facility 03-08-2024 Functional Status N/A [facility] History of Present illness Narrative 05-31-2024 Cherise Faustin, PUT IN BEAT ADJUSTER - 05/31/2024 9:10 AM EST Note Date [...] nursing note reviewed. Exam conducted with a tack puller machine present. Vitals: There is no height or [...] insulin resistance. Pt to be referred to [facility] cardiology. Pt being started on lisinopril(elevated BP), metformin(insulin resistance), and diflucan(for yeast) Orders Placed This Encounter Procedures Bilateral screening mammogram Follow Up: Patient is to return in one year for annual unless needed otherwise. Documented by Cherise Faustin LPN on behalf of: Bill Sotelo DO documented in this encounter [facility] Clinical Note 03-08-2024 Note Date & [...] note No data available for this section [facility] Evaluation note Note Date & Type Note Facility [facility] note [facility]: Evaluation note Note Date [...] skin and nails documented in this encounter [facility] Hospital Discharge instructions Note Date & Type Note Facility Hospital Discharge instructions No data available for this section [facility] Progress note Note Date & Type Note Facility Progress note No data available for this section [facility] Family History Relationship Condition Age at Onset [...] Roman howard 2023 End: May 25, 2023 Residency Director Relationship Specialty Start Date End Date Sacha Monroy MD [address] [place] [address] PCP - General Family Medicine 05/25/23 Residency Director Relationship Specialty Start Date End Date Sacha Monroy MD [address] [place] [address] PCP - General Family Medicine 05/25/23 Residency Director Relationship Specialty Start Date End Date Sacha Monroy MD [address] [place] [address] PCP - General Family Medicine 05/25/23 Goals (unrecognized section and content) Goals may be documented in a n alternate sectionGoals may be documented in an alternate sectionGoals may be documented in an alternate sectionGoals may be documented in an alternate section No data available for this section INFORMATION SOURCE (unrecogn ized section and content) DATE CREATED AUTHOR 06/09/2022 [facility] DATE CREATED AUTHOR AUTHOR'S ORGANIZ ATION 06/23/2023 [facility] DATE CREATED AUTHOR AUTHOR'S ORGANIZ ATION 04/14/2024 [facility] DATE CREATED AUTHOR AUTHOR'S ORGANIZ ATION 06/01/2024 [facility] EPIC Reason for Visit (unrecogniz [...] BE BASED ON THE PRIMARY CLINICAL RECORDS. [facility] [employer] [facility]. provides no warranty or guarantee of the accuracy or completeness of information in this document.
== END 2024-07-27 07:13 | disposition home or self-care (01) ==
LOC: MAMMO 07:12
PROVIDERS: PCP Family Medicine; Visit Provider Obstetrics & Gynecology
DX: Z12.31 Encounter for screening mammogram for malignant neoplasm of breast (principal)
CPT/HCPCS: 77063; 77067

== ENCOUNTER 2024-09-02 14:31 | Outpatient (RCR) | payer BC, SELFPAY ==
[2024-09-02 14:58] LABS: Basophils Percent Auto 0.2 % (0.2-2.0); Eosinophils Absolute Auto 0.3 10^3/uL (0.0-0.7); Hematocrit 40.6 % (36.0-48.0); Hemoglobin 13.1 g/dL (12.0-16.0); Immature Granulocytes Abs Auto 0.02 10^3/uL (0.00-0.03); Immature Granulocytes Pct Auto 0.4 % (0.0-0.5); Lymphocytes Absolute Auto 1.6 10^3/uL (1.2-3.8); Lymphocytes Percent Auto 28.6 % (20.5-60.0); Mean Corpuscular HGB Conc 32.3 g/dL (29.9-35.2); Mean Corpuscular Hemoglobin 29.8 pg (26.7-34.0); Mean Corpuscular Volume 92.3 fL (81.0-99.0); Mean Platelet Volume 10.9 fL (9.5-13.5); Monocytes Absolute Auto 0.4 10^3/uL (0.3-0.8); Monocytes Percent Auto 6.5 % (1.7-12.0); Neutrophils Absolute Auto 3.3 10^3/uL (1.4-6.5); Neutrophils Percent Auto 58.3 % (43.0-75.0); Platelet Count 247 10^3/uL (150-450); Red Cell Distribution Width 13.2 % (11.0-15.0); White Blood Count 5.7 10^3/uL (4.0-11.0)
[2024-09-02 15:27] LABS: Alanine Aminotransferase 232 U/L (14-59); Albumin Globulin Ratio 1.1; Albumin Level 3.7 g/dL (3.4-5.0); Alkaline Phosphatase 231 U/L (46-116); Amylase 157 U/L (25-115); Anion Gap 11.9; Aspartate Amino Transferase 67 U/L (15-37); BUN Creatinine Ratio 14.4; Bilirubin Total 0.4 mg/dL (0.2-1.0); Calcium 9.1 mg/dL (8.5-10.1); Carbon Dioxide 30.3 mmol/L (21.0-32.0); Chloride 100 mmol/L (98-107); Estimated GFR (African America >60 (>=60 mL/min/1.73m^2); Estimated GFR (Non-African Ame 58 (>=60 mL/min/1.73m^2); Globulin 3.5 g/dL; Glucose 99 mg/dL (74-106); Potassium 4.2 mmol/L (3.5-5.1); Sodium 138 mmol/L (136-145); Total Protein 7.2 g/dL (6.4-8.2)
[2024-09-03 04:07] LABS: CA 19-9 4 U/mL (0-35)
[2024-09-05 10:13] LABS: Alanine Aminotransferase 103 U/L (14-59); Albumin Globulin Ratio 1.1; Albumin Level 3.7 g/dL (3.4-5.0); Alkaline Phosphatase 162 U/L (46-116); Amylase 69 U/L (25-115); Anion Gap 11.4; Aspartate Amino Transferase 20 U/L (15-37); Bilirubin Total 0.4 mg/dL (0.2-1.0); Calcium 9.3 mg/dL (8.5-10.1); Carbon Dioxide 30.7 mmol/L (21.0-32.0); Chloride 102 mmol/L (98-107); Estimated GFR (African America >60 (>=60 mL/min/1.73m^2); Estimated GFR (Non-African Ame >60 (>=60 mL/min/1.73m^2); Globulin 3.3 g/dL; Glucose 116 mg/dL (74-106); Potassium 4.1 mmol/L (3.5-5.1); Sodium 140 mmol/L (136-145)
[2024-09-09 08:59] LABS: Alanine Aminotransferase 54 U/L (14-59); Albumin Globulin Ratio 1.2; Albumin Level 3.7 g/dL (3.4-5.0); Alkaline Phosphatase 118 U/L (46-116); Amylase 97 U/L (25-115); Anion Gap 10.5; Aspartate Amino Transferase 15 U/L (15-37); BUN Creatinine Ratio 16.5; Bilirubin Total 0.5 mg/dL (0.2-1.0); Calcium 9.2 mg/dL (8.5-10.1); Carbon Dioxide 28.4 mmol/L (21.0-32.0); Chloride 100 mmol/L (98-107); Estimated GFR (African America >60 (>=60 mL/min/1.73m^2); Estimated GFR (Non-African Ame 54 (>=60 mL/min/1.73m^2); Globulin 3.1 g/dL; Glucose 110 mg/dL (74-106); Potassium 3.9 mmol/L (3.5-5.1); Sodium 135 mmol/L (136-145); Total Protein 6.8 g/dL (6.4-8.2)
[2024-09-13 09:07] LABS: Alanine Aminotransferase 35 U/L (14-59); Albumin Globulin Ratio 1.2; Albumin Level 3.6 g/dL (3.4-5.0); Alkaline Phosphatase 98 U/L (46-116); Amylase 60 U/L (25-115); Anion Gap 13.3; Aspartate Amino Transferase 17 U/L (15-37); BUN Creatinine Ratio 10.1; Bilirubin Total 0.4 mg/dL (0.2-1.0); Carbon Dioxide 27.8 mmol/L (21.0-32.0); Chloride 102 mmol/L (98-107); Estimated GFR (African America >60 (>=60 mL/min/1.73m^2); Estimated GFR (Non-African Ame 51 (>=60 mL/min/1.73m^2); Globulin 3.1 g/dL; Glucose 149 mg/dL (74-106); Potassium 4.1 mmol/L (3.5-5.1); Sodium 139 mmol/L (136-145); Total Protein 6.7 g/dL (6.4-8.2)
== END 2024-10-03 10:53 | disposition home or self-care (01) ==
LOC: LAB 14:31
PROVIDERS: PCP Family Medicine; Visit Provider Family Medicine
DX: K85.90 Acute pancreatitis without necrosis or infection, unspecified (principal)
CPT/HCPCS: 36415; 80053; 82150; 83690; 85025; 86301

== ENCOUNTER 2024-09-06 08:02 | Outpatient (OUT) | payer BC, SELFPAY ==
--- NOTE | 2024-09-06 08:04 | US_ITS ---
[address] [address] Patient Name: JUAN CARLOS LOU MRN: [id number] date: 1965 Sex: F Assigned Patient Location: US Current Patient Location: US Accession/Order Number: [id number] Exam Date: 09/06/2024 10:26 Report Date: 09/06/2024 10:45 At the request of: CIARRA VILLATORO MD Procedure: US right upper quadrant LIMITED ABDOMINAL ULTRASOUND: CLINICAL HISTORY: Pancreatitis COMPARISON: None TECHNIQUE: Grayscale and color Doppler images of the right upper quadrant organs were obtained. FINDINGS: Pancreas: Small cyst involving the pancreatic tail measuring 6 mm. Liver: Unremarkable. Gallbladder: Removed. CBD: 3.4 mm RT KIDNEY: No Hydronephrosis US/US right upper quadrant IMPRESSION: SMALL CYSTS INVOLVING THE PANCREATIC TAIL MEASURING 6 MM. THIS CAN BE FURTHER EVALUATED BY MRI/MRCP WITH AND WITHOUT IV CONTRAST.. Impression dictated by: Daniel Almanzar Jr. DLeigha 09/06/2024 10:45 AM Dictation Location: [place] [address] Electronically authenticated by: [id number] Y Date: 09/06/2024 10:45
== END 2024-09-06 08:03 | disposition home or self-care (01) ==
LOC: US 08:02
PROVIDERS: PCP Family Medicine; Visit Provider Family Medicine
DX: K85.90 Acute pancreatitis without necrosis or infection, unspecified (principal); K86.2 Cyst of pancreas
CPT/HCPCS: 76705

== ENCOUNTER 2024-09-23 12:40 | Outpatient (OUT) | payer BC, SELFPAY ==
--- OUTSIDE RECORDS SUMMARY | 2024-08-31 15:28 | XMS_ITS ---
Author Name Auto Generated Organization OHIP Care Team Providers Care Waxer Tender Name Role Phone LUIS ALBERTO HERNANDEZ Attending Unavailable CIARRA MONROY Primary Care Unavailable BILL NIELSEN Attending Unavailable Ciarra Monroy Referring Unavailable Oj GONZALEZ Attending Unavailable Oj GONZALEZ Attending Unavailable Fly Conti Attending Unavailable Fly Conti Admitting Unavailable Ciarra Monroy Primary Care Unavailable PROBLEMS DATE TYPE CONDITION / CODE ATTENDING STATUS [facility] 08/31/2024 Unknown Chest pain, unsp ecified / R07.9(ICD-10) Fly Conti [facility] 08/31/2024 Unknown Acute pancreatit is without necrosis or infection, unspecified / K85.90(ICD-10) Fly Conti [facility] 08/10/2024 Admitting Diagnosis Prediabetes / R73.03(ICD-10) LUIS ALBERTO HERNANDEZ [facility] 08/10/2024 Admitting Diagnosis Ventricular premature depolarization / I49.3(ICD-10) HERNANDEZLUIS ALBERTO GURROLA [facility] 08/10/2024 Admitting Diagnosis Abnormal electrocardiogram (ECG) (EKG) / R94.31(ICD-10) HERNANDEZLUIS ALBERTO GURROLA [facility] 08/10/2024 Admitting Diagnosis Family history of ischemic heart disease and other diseases of the circulatory system / Z82.49(ICD-10) LUIS ALBERTO HERNANDEZ [facility] 08/10/2024 Admitting Diagnosis Personal history of nicotine dependence / Z87.891(ICD-10) [facility] 08/10/2024 Admitting Diagnosis Acute embolism and thrombosis of other specified deep vein of left lower extremity (Multi) / I82.492(ICD-10) [facility] 08/10/2024 Admitting Diagnosis Body mass index (BMI) 34.0-34.9, adult / Z68.34(ICD-10) [facility] 08/10/2024 Admitting Diagnosis Essential (primary) hypertension / I10(ICD-10) [facility] 08/10/2024 Admitting Diagnosis Hyperlipidemia, unspecified / E78.5(ICD-10) [facility] PROCEDURES No Procedure Records Found RESULTS HEPATITIS ACUTE PANEL Collected: 08/31/2024 8:27 PM Status: F Source: [facility] TYPE CODE TESTS RESULT OUT OF RANGE REFERENCE UNITS LAB HAAB Hepatitis A Antibody IgM Negative Negative Result Comment: A negative a nti-HAV IgM result suggests no recent or current HAV infection. LAB HCBIGM Hepatitis B Core Antibody IgM Negative Negative LAB HBSAG SCR HBsAg Screen Negative Negative LAB HCV AB. Hepatitis C Virus Antibody Non Reactive Non Reactive LAB RFXHEPCINTERP Interpretation Hepatitis C Comment . Result Comment: Not infected with HCV unless early or acute infection is suspected (which may be delayed in an immunocompromised individual), or other evidence exists to indicate HCV infection. Performed at: - [facility] [id number] [place] Operator: Prakash Ballesteros PhD, Phone: [phone] PERFORMED BY: [address] [address] PATHOLOGIST VP GENETIC BARBARA WOLFE M.D. Performed By: #### HEPACUTE #### [facility] , TROPONIN I HIGH SENSITIVITY Collected: 08/31/2024 6:4 0 PM Status: F Source: [facility] TYPE CODE TESTS RESULT OUT OF RANGE REFERENCE UNITS LAB HS TROP Troponin I High Sensitivity 4 Normal 0-15 Result Comment: The Troponin units of report have been changed to meet the Chest Pain Accreditation requirement, element EC5.M1l2. Troponin units are changed from pg/ml to ng/L. Also, the decimal is removed and results are in whole numbers. PERFORMED BY: [place] [address] PATHOLOGIST VP GENETIC BARBARA WOLFE M.D. Performed By: #### LIPASE, H S TROP, TRIG, HEPATIC #### [place] [id number] [facility] HEPATIC PANEL Collected: 08/31/2024 6:40 PM Status: F Source: [facility] TYPE CODE TESTS RESULT OUT OF RANGE REFERENCE UNITS LAB TP Total Protein 6.3 Low 6.4-8.9 g/dL LAB ALB Albumin Level 4.1 Normal 3.5-5.7 g/dL LAB GLOB Globulin 2.2 g/dL LAB AGRATIO Albumin/Globulin Ratio 1.9 LAB BILIT Bilirubin,Total 0.5 Normal 0.3-1.0 mg/dL LAB BILID Bilirubin,Direct 0.10 Normal 0.03-0.18 mg/dL LAB BILII Bilirubin,Indirect 0.4 mg/dL LAB AST Aspartate Amino Transferase 228 High 13-39 U/L LAB ALT Alanine Aminotransferase 216 High 7-52 U/L LAB ALP Alkaline Phosphatase 150 High 34-104 U/L Performed By: #### LIPASE, H S TROP, TRIG, HEPATIC #### [place] [id number] [facility] LIPASE Collected: 6:40 PM Status: F Source: [facility] TYPE CODE TESTS RESULT OUT OF RANGE REFERENCE UNITS LAB LIPASE Lipase 2452.0 High 11.0-82.0 U/L Result Comment: PERFORMED BY : [place] [address] PATHOLOGIST VP GENETIC BARBARA WOLFE M.D. Performed By: #### LIPASE, H S TROP, TRIG, HEPATIC #### [place] [id number] [facility] TRIGLYCERIDES Collected: 6:40 PM Status: F Source: [facility] TYPE CODE TESTS RESULT OUT OF RANGE REFERENCE UNITS LAB TRIG Triglycerides 105 Normal 35-149 mg/dL Result Comment: TRIG ATP III CLASSIFICATION TRIG less than 150 mg/dL Normal TRIG 150-199 mg/dL Borderline high TRIG 200-500 mg/dL High TRIG greater than 500 mg/dL Very high Standard traceable to the Center for Disease Conrtrol and Prevention (CDC) test method. PERFORMED BY: [address] [address] PATHOLOGIST VP GENETIC BARBARA WOLFE M.D. Performed By: #### LIPASE, H S TROP, TRIG, HEPATIC #### [address] [address] [facility] DIPSTICK AND MICROSCOPIC Collected: 6:25 PM Status: F Source: [facility] Order Comment: Name Collecti on Type:: Clean-Voided Midstream TYPE CODE TESTS RESULT OUT OF RANGE REFERENCE UNITS LAB UCOL Color,Urine Colorless Yellow LAB UAPP Appearance,Uri ne Clear Clear LAB USG Specificy Laie,Urine 1.029 Normal 1.001-1.030 LAB UPH pH,Urine 6.5 Normal 5.0-9.0 LAB ULE Leukocyte Esterase,Urine 3+ High Negative LAB UNIT Nitrite,Urine Negative Negative LAB UPRO Protein,Urine Negative Negative LAB UGL Glucose,Urine (UA) Normal Normal LAB UKET Ketones,Urine Negative Negative LAB UURO Urobilinogen,U rine Normal Normal LAB UBIL Bilirubin,Urin e Negative Negative LAB UBLD Occult Blood,Urine Negative Negative Result Comment: PERFORMED BY : [address] [address] PATHOLOGIST VP GENETIC BARBARA WOLFE M.D. LAB URBC RBC,Urine 1-2 0-4 [HPF] LAB UWBC WBC,Urine 3-4 0-4 [HPF] LAB USQEPI Squamous Epithelial Cell,Urine 1-2 0-2 [HPF] LAB UBACT Bacteria,Urine None Seen None Seen LAB UHYALC Hyaline Casts,Urine None 0-8 Result Comment: PERFORMED BY : [address] [address] PATHOLOGIST VP GENETIC BARBARA WOLFE M.D. Performed By: #### CHIARA #### [facility] [address] [place] [id number] [facility] CT ANGIO CHEST PE PROTOCOL Observed: 6:01 PM Status: COMPLETED Source: [facility] [place] [address] [id number] Scan Report Signed Patient: Juan Carlos Ogden MR#: [id number] : 1965 Acct:[id number] Age/Sex: 59 / F ADM Date: 08/31/24 Loc: ER Room: Type: PRE ER Attending Dr: Copies to: Fly Conti DO Ordering Provider: Fly Conti DO Date of Service: 08/31/24 CT/CT angio chest PE protocol: cp, elevated dimer CT ANGIOGRAM OF THE CHEST, PULMONARY EMBOLISM PROTOCOL: CLINICAL INFORMATION: Elevated d-dimer, abnormal stress test, slight shortness breath TECHNIQUE: Following intravenous injection of contrast CT scans of the chest were obtained using pulmonary embolism protocol. Coronal and sagittal reconstructed images, as well as volume rendered CT pulmonary angiographic images were also submitted.The CT exam was performed using one or more of the following dose reduction techniques: Automated exposure control, adjustment of the MA and/or Kv according to patient size, or use of the iterative reconstruction technique. FINDINGS: Pulmonary Vasculature: Contrast bolus is adequate for evaluation of pulmonary embolism. Pulmonary trunk appears nondilated. No filling defects are identified to suggest pulmonary embolism. Mediastinum : Thoracic aorta is normal in caliber. No pericardial effusion. No lymphadenopathy. The esophagus is grossly unremarkable. Lungs: No focal consolidation, pneumothorax or pleural effusion. Upper abdomen: Previous cholecystectomy. Questionable peripancreatic edema and fullness of pancreas noted. Right anterior liver lesion on the dome with focal increased attenuation. Soft tissue/bones: Soft tissues surrounding the chest wall demonstrate no acute findings. Osseous structures demonstrate degenerative change. CT/CT angio chest PE protocol IMPRESSION: No CT evidence of pulmonary embolism or acute cardiopulmonary process. Pancreatic fullness with questionable or pancreatic edema. Please correlate with pancreatic enzymes and history. Questionable lesion right anterior liver along the dome. Consider dedicated imaging as warranted. Impression dictated by: Germán Ferrer M.D. 08/31/2024 6:05 PM Dictation Location: [place] [address] Transcribed By: PWS 08/31/241804 Dictated By: Germán Ferrer MD 08/31/241800 Signed By: <Electronically signed by Germán Ferrer MD in OV> 08/31/241804 COMPLETE BLOOD COUNT AUTO DIFF Collected: 08/31/2024 4:26 PM Status: F Source: [facility] TYPE CODE TESTS RESULT OUT OF RANGE REFERENCE UNITS LAB WBC White Blood Count 8.0 Normal 3.8-11.6 10*3/uL LAB UNWBC Uncorrected WBC 8.0 Normal 3.8-11.6 10*3/uL LAB RBC Red Blood Count 4.48 Normal 3.60-5.00 10*6/u L LAB HGB Hemoglobin 13.8 Normal 11.8-15.4 g/dL LAB HCT Hematocrit 39.8 Normal 34.0-46.4 % LAB MCV Mean Corpuscular Volume 89.0 Normal 80-100 fL LAB MCH Mean Corpuscular Hemoglobin 30.7 Normal 24.7-34.3 pg LAB MCHC Mean Corpuscular HGB Conc 34.5 Normal 32.0-35.0 g/dL LAB RDW Red Cell Distribution Width 14.2 Normal 11.9-15.3 % LAB PLT Platelet Count 229 Normal 150-450 10*3/uL LAB MPV Mean Platelet Volume 9.0 Normal 6.3-10.7 fL LAB MDW Monocyte Distribution Width 21.90 High 0.00-20.00 % Result Comment: For adults i n ED, MDW > 20.0 may be associated with a higher risk of sepsis during the first 12 hrs of hospital admission LAB NE% Neutrophils % (Auto) 75.9 . % LAB LY% Lymphocytes % (Auto) 15.7 . % LAB MO% Monocytes % (Auto) 5.9 . % LAB EO% Eosinophils % (Auto) 2.2 . % LAB BA% Basophils % (Auto) 0.3 . % LAB NRBC% NRBC% 0.0 Normal 0-0.5 /100{WBC } LAB NE# Neutrophils # (Auto) 6.1 Normal 1.8-7.7 10*3/uL LAB LY# Lymphocytes # (Auto) 1.3 Normal 1.00-4.8 10*3/uL LAB MO# Monocytes # (Auto) 0.5 Normal 0.0-0.8 10*3/uL LAB EO# Eosinophils # (Auto) 0.2 Normal 0.0-0.45 10*3/uL LAB BA# Basophils # (Auto) 0.0 Normal 0.0-0.2 10*3/uL Result Comment: PERFORMED BY : [address] [address] PATHOLOGIST VP GENETIC BARBARA WOLFE M.D. Performed By: #### PT, BMP, BNP, CBC, DDIMER, CK, HS TROP #### [facility] [address] [place] [address] [facility] BASIC METABOLIC PANEL Collected: 08/31/2024 4:26 PM Status: F Source: [facility] TYPE CODE TESTS RESULT OUT OF RANGE REFERENCE UNITS LAB GLU Glucose 112 High 70-100 mg/dL Result Comment: Random Gluco se Reference Range is dependent on time and content of last meal. Glucose of more than 200 mg/dL in a nonstressed, ambulatory subject supports the diagnosis of Diabetes Mellitus. ADA recommended reference range LAB BUN Blood Urea Nitrogen 32 High 7-25 mg/dL LAB CREATT Creatinine 0.90 Normal 0.60-1.20 mg/dL LAB GFReNR Estimated GFR >60.0 mL/Min LAB NA Sodium 132 Low 136-145 mmol/L LAB K Potassium 4.4 Normal 3.5-5.1 mmol/L LAB CL Chloride 102 Normal 98-107 mmol/L LAB CO2 Carbon Dioxide 23.4 Normal 21.0-31.0 mmol/L LAB GAP Anion Gap 11.0 Normal 6.0-15.0 meq/L LAB CA Calcium 9.2 Normal 8.6-10.3 mg/dL LAB CRCLPHA Creatinine Clr Calc Pharmacy 83.98 Result Comment: PERFORMED BY : [place] [address] PATHOLOGIST VP GENETIC BARBARA WOLFE M.D. Performed By: #### PT, BMP, BNP, CBC, DDIMER, CK, HS TROP #### [address] [address] [facility] B-TYPE NATRIURETIC PEPTIDE Collected: 08/31/2024 4:26 PM Status: F Source: [facility] TYPE CODE TESTS RESULT OUT OF RANGE REFERENCE UNITS LAB BNP B-Type Natriuretic Peptide 16.0 Normal 5-100 pg/mL Result Comment: PERFORMED BY : [place] [address] PATHOLOGIST VP GENETIC BARBARA WOLFE M.D. Performed By: #### PT, BMP, BNP, CBC, DDIMER, CK, HS TROP #### [place] [id number] [facility] CREATINE KINASE Collected: 08/31/2024 4:26 PM Status : F Source: [facility] TYPE CODE TESTS RESULT OUT OF RANGE REFERENCE UNITS LAB CK Creatine Kinase 92 Normal 30-223 U/L Performed By: #### PT, BMP, BNP, CBC, DDIMER, CK, HS TROP #### [place] [id number] [facility] TROPONIN I HIGH SENSITIVITY Collected: 08/31/2024 4:2 6 PM Status: F Source: [facility] TYPE CODE TESTS RESULT OUT OF RANGE REFERENCE UNITS LAB HS TROP Troponin I High Sensitivity 4 Normal 0-15 Result Comment: The Troponin units of report have been changed to meet the Chest Pain Accreditation requirement, element EC5.M1l2. Troponin units are changed from pg/ml to ng/L. Also, the decimal is removed and results are in whole numbers. PERFORMED BY: [place] [address] PATHOLOGIST VP GENETIC BARBARA WOLFE M.D. Performed By: #### PT, BMP, BNP, CBC, DDIMER, CK, HS TROP #### [place] [id number] [facility] PROTHROMBIN TIME INR Collected: 08/31/2024 4:26 PM S tatus: F Source: [facility] TYPE CODE TESTS RESULT OUT OF RANGE REFERENCE UNITS LAB R PT Prothrombin Time 11.0 Normal 9.0-12.9 s Result Comment: A hematocrit value greater than 55% may lead to inaccurate results in coagulation testing. Patients having hematocrit values >55% require a special collection tube for coagulation studies. Please contact the laboratory at [phone] for redraw instructions. LAB INR INR 1.0 Result Comment: INR Therapeu tic Range A) Pre- and Peroperative OAT started two weeks before surgery. NOT HIP SURGERY: 1.5 - 2.5 HIP SURGERY: 2 - 3 B) Primary and secondary prevention of venous THROMBOSIS: 2 - 3 C) Active venous thrombosis, pulmonary embolism and prevention of recurrent venous thrombosis: 2 - 3 D) Prevention of arterial thromboembolism including patients with mechanical heart valves: 3 - 4.5 Performed By: #### PT, BMP, BNP, CBC, DDIMER, CK, HS TROP #### [address] [address] [facility] D-DIMER HIGH SENSITIVITY Collected: 08/31/2024 4:26 P M Status: F Source: [facility] TYPE CODE TESTS RESULT OUT OF RANGE REFERENCE UNITS LAB DDIMER D-Dimer High Sensitivity 1008 High 0-243 ng/mL Result Comment: The referenc e range for D-dimer is <243 ng/mL D-dimer units. D-dimer results must be used in conjunction with a clinical pretest probability (PTP) assessment model for deep vein thrombosis (DVT) and pulmonary embolism (PE). Results <230 ng/mL d-dimer units can be used as a negative predictor in patients with low or moderate probability for DVT/PE. Results above the exclusion threshold of 230 ng/ml D-dimer units for DVT/PE may indicate the need for further diagnostic testing. D-Dimer can be increased in hospitalized patients due to co-morbid conditions. A hematocrit value greater than 55% may lead to inaccurate results in coagulation testing. Patients having hematocrit values >55% require a special collection tube for coagulation studies. Please contact the laboratory at [phone] for redraw instructions. PERFORMED BY: [place] [id number] PATHOLOGIST VP GENETIC BARBARA WOLFE M.D. Performed By: #### PT, BMP, BNP, CBC, DDIMER, CK, HS TROP #### [address] [address] [facility] XR CHEST 2V* Observed: 08/31/2024 4:15 PM Status: COMPLETED Source: [facility] [place] [id number] XRay Report Signed Patient: Juan Carlos Ogden MR#: [id number] : 1965 Acct:[id number] Age/Sex: 59 / F ADM Date: 08/31/24 Loc: ER Room: Type: PRE ER Attending Dr: Copies to: NAPOLEON MCALLISTER Ordering Provider: NAPOLEON MCALLISTER Date of Service: 08/31/24 XR/XR chest 2V*: Chest Pain PA AND LATERAL CHEST: CLINICAL HISTORY: Midsternal chest pain COMPARISON: None FINDINGS: Unremarkable cardiomediastinal silhouette. Lungs are clear. No effusion or pneumothorax. XR/XR chest 2V* IMPRESSION: NO ACUTE CARDIOPULMONARY ABNORMALITY. Impression dictated by: Germán Ferrer M.D. 08/31/2024 4:15 PM Dictation Location: [place] [address] Transcribed By: [facility] 08/31/24 161 Dictated By: Germán Ferrer MD 08/31/24 161 Signed By: <Electronically signed by Germán Ferrer MD in OV> 08/31/24 161 ECG 12 LEAD ECG Observed: 08/31/2024 3:32 PM Status: COMPLETED Source: [facility] Main [place] [id number] Electrocardiograph Report Signed Patient: Juan Carlos Ogden MR#: [id number] : 1965 Acct:[id number] Age/Sex: 59 / F ADM Date: 08/31/24 Loc: ER Room: Type: REG ER Attending Dr: Ordering Provider: Fly Conti DO Date of Service: 08/31/24 ECG/ECG 12 lead ECG: Chest Pain Copies to: Test Reason : Blood Pressure : */* mmHG Vent. Rate : 73 BPM Atrial Rate : 73 BPM P-R Int : 144 ms QRS Dur : 74 ms QT Int : 380 ms P-R-T Axes : 41 31 57 degrees QTcB Int : 418 ms Normal sinus rhythm Low voltage QRS Confirmed by Fly CONTI DO ([id number]) on 08/31/2024 8:35:29 PM Referred By: Electronically Signed By: Fly CONTI DO Transcribed By: MUS Signed By Fly Conti, 0 08/31/242034 REMINDERS Observed: 04/07/2024 12:50 PM Status: F Source: [facility] Reminders From: Moon Wheatley LPN To: [facility] - Clinical; Sent: 04/07/2024 12:50:14 EST Show up: 03/07/2034 07:00:00 EDT Subject: colonoscopy recall Due Date/Time: 04/06/2034 07:00:00 EST Reminder/Recall Patient due for screening colonoscopy 04/06/2034. AMBULATORY VISIT SUMMARY Observed: 03/08 3:09 PM Status: F Source: [facility] Ambulatory Visit Summary JUAN CARLOS OGDEN :1965 Visit Date:03/08/2024 Ambulatory Visit Instructions Your Diagnosis Positive colorectal cancer screening using Cologuard test Your Care Team Attending Physician - CARLOS ROLDAN, Oj Rodriguez Primary Care Physician - Ciarra Monroy MD Referring Physician - Ciarra Monroy MD This Is Your Medications List [...] you for choosing us for your care. GENERAL SURGERY OFFICE/CLINI C NOTE Observed: 03/08/2024 2:56 PM Status: F Source: [facility] General Surgery Office/Clini c Note Chief Complaint consultation for positive Cologuard [...] Recorded SARS-CoV-2 (COVID-19) mRNA-1273 vaccine 05/02/2020 Recorded Result Comment: Electronical ly Signed By: CARLOS ROLDAN, Oj Moore\Date and Time Signed: 03/08/24 14:56 EST ALLERGIES DATE TYPE / CODE NAME / CODE REACTION SEVERITY SOURCE 08/31/2024 Drug Allergy/[id number](SNO MED CT) No Known Allergies/[id number] 88(RXNORM) Unknown [facility]/927167545(S N OMED CT) NO KNOWN ALLERGIES [facility] Miscellaneous Allergy/964897749(SNO MED CT) No Known Allergies [facility] Miscellaneous Allergy/028833601(SNO MED CT) No Known Medication Allergies [facility] ENCOUNTERS ADMIT/DISCHARGE ACCOUNT NUMBER ADMITTING ENCOUNTER CLASS LOCATION SOURCE 08/31/2024/09/01/19 [id number] Fly Conti [facility] 08/10/2024/08/11/19 [id number] Ambulatory Building:DOT [id number] [facility] Ambulatory 05/31/2024/05/31/19 [id number] Ambulatory Building:NOM S BCP OB [facility] EPIC 04/06/2024/04/06/20 24 [id number] Ambulatory CD:[id number]:CD :[id number] [facility] 03/08/2024/03/08/20 24 [id number] Ambulatory Cristal ding:JULIA De La PazueRoom : Exam 2 [facility] 02/09/2024 [id number] [facility] [place] [facility] PAYERS ENCOUNTER GUARANTOR PAYER SUBSCRIBER SOURCE 08/31/2024 Juan Carlos [id number] [place] [address] Primary Insurance:[place] BC/BSPolicy Number: [id number] ella Date:2024-08-31 Lucille BernalMirandaB: [id number] [address]Tel: (HP) [facility] 08/31/2024 Secondary Insurance:Self PayPolicy Number: Effective Date:2024-08-31 [facility] 08/10/2024 JUAN CARLOS GINGERB: [place], [place] [address]Tel: (HP) Primary Insurance:ANTHEMPo licy Number: [id number] ella Date:2021-05-04 LUCILLE BERNALMIRANDAB: [id number] [place], [place] [address]Tel: (HP) [facility] Ambulatory 05/31/2024 JUAN CARLOSОлег MILESB: [address]Tel: (HP) Primary Insurance:BCBSPoli cy Number: [id number] ella Date:2021-05-04 LUCILLE Watters GINGERB: [id number] [address] [facility] EPIC 04/06/2024 JUAN CARLOS MILESB: [place] [address]Tel: ~~(41 (HP) Primary Insurance:AnthemPo licy Number: [id number] ella Date:6266-66-04[address], [place] [address]EG: [facility] 03/08/2024 JUAN CARLOS HERNANDEZ: [id number] [place] [address]Tel: ~~(41 HP) Primary Insurance:AnthemPo licy Number: [id number] ella Date:[id number] [place] [address]HQ: [facility]
--- OUTSIDE RECORDS SUMMARY | 2024-09-06 08:48 | XMS_ITS ---
Author Organization [facility] in [place] Address [address] [place] [address] Care Team Providers Care Lead Mechanic Name Role Phone Milton Monroy Primary Care Provider [phone] REASON FOR VISIT us results Encounters Encounter Location Date Provider Diagnosis [facility] [address] [place] [address] 09/06/2024 Milton Monroy Pancreatic cyst K86. 2 Assessments Encounter Date Diagnosis (ICD Code) Assessment Notes Treatment Notes Treatment Clinical Notes Section Notes 09/06/2024 Pancreatic cyst (ICD-10 - K86.2) Plan Of Treatment Pending Test Test Name Order Date MRI Pancreas w/ + w/o contrast MRCP Abdomen w/o contrast 09/06/2024 Progress Notes * Jolanta LOUBabitaOB:1965 (59 yo F)Acc No.[id number]:09/06/2024 Patient: Izabella ALMEIDA :1965 A ge:59 Y S ex:Female Address:[address] [place] [phone] Subjective: * Chief Complaints: * U s results * Medical History: * Surgical History: * Hospitalization/Major Diagno stic Procedure: * Medications: Objective: * Vitals: * Physical Examination: Assessment: * Assessment: 1. P ancreatic cyst - K86.2 (Primary) Plan: * Treatment: * Procedure Codes: * true * Date: Generated for Printi ng/Faxing/eTransmitting on: 0 09/23/2024 12:42 PM EDT
--- OUTSIDE RECORDS SUMMARY | 2024-09-08 12:53 | XMS_ITS ---
Author Organization The [facility] in [place] Address [address] [place] [address] Care Team Providers Care Stone Mill Operator Name Role Phone Milton Monroy Primary [...] ella Encounters Encounter Location Date Provider Diagnosis [address] [address] 09/08/2024 Milton Monroy Plan Of Treatment Medication Medication Name Sig Start Date Stop Date Notes Bactrim DS 800-160 MG 1 tablet Orally bid for 10 days 12/2024 Pyridium 200 MG 1 tablet after meals Orally Three times a day for 2 days 09/08/2024 Progress Notes * DASHA TrOB:1965 (59 yo F)Acc No.[id number]:09/08/2024 Patient: Izabella ALMEIDA :1965 A ge:59 Y S ex:Female Address:[address] [place] [phone] * Refills Start Bactrim DS Tablet, 800-160 MG, Orally, 20 Tablet, 1 tablet, bid, 10 days, Refills=0 Start Pyridium Tablet, 200 MG, Orally, 9, 1 tablet after meals, Three times a day, 2 days * true * Date: Generated for Tova hillman/Gregg/María Elena on: 0 09/23/2024 12:42 PM EDT
--- OUTSIDE RECORDS SUMMARY | 2024-09-23 12:42 | XMS_ITS | Clinical Summary ---
Author Organization [facility] Address [address] [place] [address] Care Team Providers Care Apprentice Stylist Name Role Phone Sacha Monroy MD Primary Care Provider [phone] Allergies No known active allergies Medications montelukast (SINGULAIR) 10 mg tablet Take 10 mg by mouth daily at bedtime. Active loratadine (CLARITIN) 10 mg tablet Take 10 mg by mouth once daily. Active ALBUTEROL SULFATE HFA INHALATION Inhale as instructed. Active Multivitamin capsule Take 1 capsule by mouth once daily. Active guaiFENesin (MUCINEX) 600 mg 12 hr tablet Take 2 tablets by mouth every 8 hours as needed (for coughing.). . 30 tablet 2 5 Active fluticasone-ruba meterol (ADVAIR DISKUS) 250-50 mcg/dose dsdv Inhale 1 Puff as instructed twice daily. Rinse and gargle mouth with water after each use. 1 Inhaler 0 5 Active Active Problems Problem Noted Date Diagnosed Date Exercise-induced bronchospasm 03/16/2015 Overview (03/16/2015): History of asthma symptoms with exertion. Remote smoking history--quit 1985. Assessment & Plan (03/16/2015 5:48 PM EST): Today she is complaining of nasal and sinus congestion. Her asthma appears to be in good control. Her main concern is the nasal congestion that is persistent. We have recommended using a Netipot for nasal irrigation. If this does not work to resolve the congestion, we may have to revisit the use of nasal sprays, including the combination of a steroid and anticholinergic. Immunizations Immunization Administration Dates Next Due influenza (IIV3) vaccine, ag e 6 mo - 64 yr, trivalent (AFLURIA, FLULAVAL, FLUVIRIN, FLUZONE) 02/12/2015 Family History Medical History Relation Comments prostate cancer [Other] Maternal Grandfather wit h mets to lung and bone lung cancer [Other] Maternal Uncle Breast Cancer Other no known family history other cancers [Other] Other no known f amily h/o: ovarian,uterine,colon,pancreatic,thyroid ,brain,melenoma,leukemia,sarcomas Relation Status Comments Maternal Grandfather Maternal Uncle Other Social History Tobacco Use Types Packs/Day Years Used Date Smoking Tobacco: Former Cigarettes Q uit: 12/06/1985 Comments:in college maybe 2 years Alcohol Use Standard Drinks/Week Comments No 0 (1 standard drink = 0.6 oz pur e alcohol) Comments No Sex and Gender Information Value Date Recorded Sex Assigned at Not on file Legal Sex Female 9:24 AM EST Gender Identity Not on file Sexual Orientation Not on file Last Filed Vital Signs Vital Sign Reading Time Taken Comments Blood Pressure 136/94 03/16/2015 2:32 PM EST Pulse 86 03/16/2015 2:32 PM EST Temperature 37.2 C (99 F) 03/16/2015 2:32 PM EST Respiratory Rate 18 02/16/2015 2:38 PM EDT Oxygen Saturation 94% 03/16/2015 2:32 PM EST Inhaled Oxygen Concentration - - Weight 87.5 kg (193 lb) 03/16/2015 2:32 PM EST Height 175.3 cm (5' 9 ) 02/16/2015 2:38 PM EDT Body Mass Index 28.5 02/16/2015 2:38 PM EDT Plan of Treatment Health Maintenance Due Date Last Done Comments Anxiety Screening 1981 Depression Screening 1981 HIV Screening 1981 Hepatitis C Screening 1981 DTaP,Tdap,Td Vaccine (1 - Tdap) 1982 Cervical Cancer Screening [address] Colonography 2008 Cologuard (FIT-DNA) 2008 Colonoscopy 2008 Colorectal Cancer Screening 2008 Diabetes Screening 2008 Fecal Occult Blood 2008 Lipid Screening 2008 Sigmoidoscopy 2008 Pneumococcal Vaccine: 50+ (1 of 1 - PCV) 2013 Shingrix Vaccine (1 of 2) 2013 Covid-19 Vaccine (1 - 2023- season) 2024 Influenza Vaccine (Season Ended) 2025 02/13/20 15 RSV Vaccine (1 - 1-dose 75+ series) 2038 Insurance MED PPO Member Subscriber Plan / Payer (Ef fective 2012-Present) Name:Izabella Ogden Relation to Subscriber:Self Name:Izabella Ogden Payer ID:Not on file Type:PPO Address: [place] [phone] Care Teams Apprentice Stylist Relationship Specialty Start Date End Date Sacha Monroy MD PCP - General Family Medicine 05/19/12
--- OUTSIDE RECORDS SUMMARY | 2024-09-23 12:42 | XMS_ITS | Encounter Summary ---
Author Organization [facility] Address [address] [place] [address] Phone Care Team Providers Care Manager Pediatric Name Role Phone Sacha Monroy MD Primary Care Provider [phone] Encounter Details Date Type Department Care Team (Late st Contact Info) Description 07/28/2024 Scanned Document [facility] [address] [place] [phone] Scanning, Generic Provider Social History Tobacco Use Types Packs/Day Years Used Date Smoking Tobacco: Never Assessed Comments Unknown Sex and Gender Information Value Date Recorded Sex Assigned at Not on file Legal Sex Female 2:10 PM EDT Gender Identity Not on file Sexual Orientation Not on file documented as of this encounter Plan of Treatment Upcoming Encounters Date Type Department Care Team (Late st Contact Info) Description 10/06/2024 7:30 PM EDT Appointment [address] [address] 10/11/2024 7:45 AM EDT Appointment [address] [place] [address] 11/01/2024 9:40 AM EDT Office Visit [address] [place] [phone] Rajeev Wong MD [address] [facility] [address] [place], [place] [phone] documented as of this encounter Visit Diagnoses Not on filedocumented in this encounter Care Teams Manager Pediatric Relationship Specialty Start Date End Date Sacha Monroy MD [address] [place] [address] PCP - General Family Medicine 07/28/24 documented as of this encounter
--- OUTSIDE RECORDS SUMMARY | 2024-09-23 12:42 | XMS_ITS | Clinical Summary ---
Author Organization [facility] Address [address] [place] [address] Phone Care Team Providers Care Plate Conditioner Name Role Phone Sacha Monroy MD Primary Care Provider [phone] Allergies No known active allergies Medications lisinopril 10 mg tablet Take 1 tablet (10 mg) by mouth once daily. Active metFORMIN XR 500 mg 24 hr tablet Take 1 tablet (500 mg) by mouth once daily in the evening. Take with meals. Active aspirin 81 mg EC tablet Take 1 tablet (81 mg) by mouth once daily. 4 Active rosuvastatin (Crestor) 5 mg tablet Take 1 tablet (5 mg) by mouth early in the morning.. 5 Active tiZANidine (Zanaflex) 4 mg tablet Take 1 tablet (4 mg) by mouth if needed. 5 Active diclofenac sodium (Voltaren XR) 100 mg 24 hr tablet Take 1 tablet (100 mg) by mouth if needed. Active traZODone (Desyrel) 50 mg tablet Take 1 tablet (50 mg) by mouth once daily at bedtime. Active latanoprost (Xalatan) 0.005 % ophthalmic solution Administer 1 drop into both eyes once daily at bedtime. 5 Active Active Problems Problem Noted Date Diagnosed Date Hyperlipemia 08/10/2024 Essential hypertension 08/10/2024 BMI 34.0-34.9,adult 08/10/2024 DVT (deep venous thrombosis) (Multi) 08/10/2024 Former smoker 08/10/2024 Asthma 08/10/2024 Family history of CO (myocardial infarction) 01/2025 Abnormal EKG 08/10/2024 PVC (premature ventricular contraction) 08/11/19 25 Pre-diabetes 08/10/2024 Encounters Date Type Department Care Team Description 08/10/2024 9:40 AM EDT Office Visit [facility] [address] [address] Rajeev Wong MD Abnormal EKG; Family history of CO (myocardial infarction); Essential hypertension; PVC (premature ventricular contraction); Deep vein thrombosis (DVT) of other vein of left lower extremity, unspecified chronicity; Hyperlipidemia, unspecified hyperlipidemia type; Pre-diabetes; BMI 34.0-34.9,adult; Former smoker 08/10/2024 Travel 07/28/2024 Scanned Document [facility] [address] [place] [address] Scanning, Generic Provider from Last 3 Months Family History Medical History Relation Name Comments No Known Problems Brother Deep vein thrombosis Father Heart disease Father Mitral valve prolapse Mother prediabetes Mother Breast cancer Sister Diabetes Sister Relation Name Status Comments Brother Father Mother Sister Social History Tobacco Use Types Packs/Day Years Used Date Smoking Tobacco: Former Cigarettes Smokeless Tobacco: Never Tobacco Cessation:Counseling Given: Not Answered Alcohol Use Standard Drinks/Week Comments Never 0 (1 standard drink = 0.6 oz pur e alcohol) Comments Unknown Sex and Gender Information Value Date Recorded Sex Assigned at Not on file Legal Sex Female 2:10 PM EDT Gender Identity Not on file Sexual Orientation Not on file Last Filed Vital Signs Vital Sign Reading Time Taken Comments Blood Pressure 116/76 08/10/2024 10:06 AM EDT Pulse 72 08/10/2024 10:03 AM EDT Temperature - - Respiratory Rate - - Oxygen Saturation - - Inhaled Oxygen Concentration - - Weight 102 kg (224 lb) 08/10/2024 10:03 AM EDT Height 172.7 cm (5' 8 ) 08/10/2024 10:03 AM EDT Body Mass Index 34.06 08/10/2024 10:03 AM EDT Plan of Treatment Upcoming Encounters Date Type Department Care Team (Late st Contact Info) Description 10/06/2024 7:30 PM EDT Appointment [facility] [address] [place] [address] 10/11/2024 7:45 AM EDT Appointment [facility] [address] [facility] [address] [place] [address] 11/01/2024 9:40 AM EDT Office Visit [facility] [address] [facility] [address] [place] [address] Rajeev Wong MD [address] [facility] [address] [place] [address] Health Maintenance Due Date Last Done Comments CT Colonography 1963 FIT 1963 HIV Screening 1965 Lipid Panel 1965 Sigmoidoscopy 1965 Yearly Adult Physical 1965 Diabetes Screening 1981 Hepatitis C Screening 1981 Pneumococcal Vaccine (1 of 2 - PCV) 1982 HPV/Cotest 1984 Mammogram 2003 Zoster Vaccines (1 of 2) 2013 RSV High Risk: (Elderly (60+ ) or Population) (1 - Risk 60-74 years 1-dose series) 2023 COVID-19 Vaccine (3 - 2023-2 5 season) 2024 05/30/2020, 05/02/2020 Influenza Vaccine (Season Ended) 2025 02/12/2015, 03/02/2009 FIT-DNA (Cologuard) 12/04/2026 12/05/2023, 10/17/2019 Cervical Cancer Screening 05/31/2027 Pap Smear 05/31/2027 05/31/2024 DTaP/Tdap/Td Vaccines (2 - T d or Tdap) 02/16/2034 02/17/2024 Colonoscopy 04/06/2034 04/06/2024 Colorectal Cancer Screening 04/06/2034 MMR Vaccines Completed 04/17/2004 HIB Vaccines Aged Out No longer eligi ble based on patient's age to complete this topic HPV Vaccines Aged Out No longer eligi ble based on patient's age to complete this topic Hepatitis A Vaccines Aged Out No long er eligible based on patient's age to complete this topic Hepatitis B Vaccines Aged Out No long er eligible based on patient's age to complete this topic IPV Vaccines Aged Out No longer eligi ble based on patient's age to complete this topic Meningococcal Vaccine Aged Out No kim nel eligible based on patient's age to complete this topic Rotavirus Vaccines Aged Out No longer eligible based on patient's age to complete this topic Procedures Procedure Name Priority Date/Time Associated Diagnosis Comments ECG 12-LEAD Routine 08/10/2024 9:47 AM EDT Abnormal EKG Family history of CO (myocardial infarction) from Last 3 Months Results * ECG 12 Lead (08/10/2024 9:47 AM EDT) Narrative [facility]ACS - 08/10/2024 10:48 AM EDT ECG revealed normal sinus rhythm, low voltage QRS complex, septal myocardial infarction of undetermined age. Abnormal ECG us Rajeev Wong MD ECG ORDERABLES Final Result CPACS from Last 3 Months Insurance Care Teams Plate Conditioner Relationship Specialty Start Date End Date Sacha Monroy MD [address] [place] [address] PCP - General Family Medicine 07/28/24
--- OUTSIDE RECORDS SUMMARY | 2024-09-23 12:42 | XMS_ITS | Encounter Summary ---
Author Organization [facility] Address [address] [facility] [place] [address] Care Team Providers Care Network Support Specialist Name Role Phone Sacha Monroy MD Primary Care Provider [phone] Encounter Details Date Type Department Care Team (Late st Contact Info) Description 06/13/2024 Orders Only [facility] [address] [facility] [place] [place] [address] Phylicia Parks LPN [address] [facility] [address] [place] [address] Social History Tobacco Use Types Packs/Day Years Used Date Smoking Tobacco: Never Alcohol Use Standard Drinks/Week Comments Never 0 (1 standard drink = 0.6 oz pur e alcohol) Comments No Sex and Gender Information Value Date Recorded Sex Assigned at Not on file Legal Sex Female 7:28 PM EDT Gender Identity Not on file Sexual Orientation Not on file documented as of this encounter Plan of Treatment Upcoming Encounters Date Type Department Care Team (Late st Contact Info) Description 06/06/2025 9:00 AM EST Office Visit [facility] [address] [place] [address] Noah Sotelo DO [address] [facility] [address] [place], [place] [phone] documented as of this encounter Procedures Procedure Name Priority Date/Time Associated Diagnosis Comments PAP SMEAR Routine 05/31/2024 12:00 AM EST documented in this encounter Results * Pap Smear (05/31/2024 12:00 AM EST) Swab Cervical swab / Unknown us [facility]ak Nurse LAB CYTOLOGY ORDERABLES Final Result EXTERNAL LAB documented in this encounter Visit Diagnoses Not on filedocumented in this encounter Care Teams Network Support Specialist Relationship Specialty Start Date End Date Sacha Monroy MD PCP - General Family Medicine 05/25/23 documented as of this encounter
--- OUTSIDE RECORDS SUMMARY | 2024-09-23 12:42 | XMS_ITS | Clinical Summary ---
Author Organization [facility] Address [address] [place] [address] Care Team Providers Care Tram Operator Name Role Phone Sacha Monroy MD Primary Care Provider [phone] Allergies No known active allergies Medications ipratropium (Atrovent) 17 MCG/ACT inhaler every 6 (six) hours Active fluticasone (Flonase Allergy Relief) 50 MCG/ACT nasal spray 1 (one) time each day at the same time Active diclofenac sodium (Voltaren XR) 100 mg 24 hr tablet Take 100 mg by mouth in the morning. 4 Active cetirizine (ZyrTEC ALLERGY) 10 MG tablet 1 (one) time each day at the same time Active Ventolin HFA 108 (90 Base) MCG/ACT inhaler every 4 (four) hours 4 Active Multiple Vitamin (multivitamin) capsule 1 capsule 1 (one) time each day at the same time Active traZODone (Desyrel) 50 MG tablet Take 50 mg by mouth at bedtime 4 Active montelukast (Singulair) 10 MG tablet 1 (one) time each day at the same time Active azithromycin (Zithromax Z-[place]) 250 MG tabletIndication s:Upper respiratory tract infection, unspecified type As directed 6 tablet 4 Active lisinopril 10 MG tabletIndication s:Blood pressure elevated without history of HTN Take 1 tablet (10 mg) by mouth Daily 30 tablet 11 5 05/31/19 26 Active metFORMIN XR (Glucophage-XR) 500 MG 24 hr tabletIndication s:Insulin resistance Take 1 tablet (500 mg) by mouth in the evening. Take with meals Do not crush, chew, or split. 30 tablet 11 5 05/31/19 26 Active Encounters Date Type Department Care Team Description 07/28/2024 Clinisync Result Encounter [facility] External Department Unsolicited Noah Sotelo DO from Last 3 Months Social History Tobacco Use Types Packs/Day Years Used Date Smoking Tobacco: Never Tobacco Cessation:Counseling Given: Not Answered [...] Sign Reading Time Taken Comments Blood Pressure 150/90 05/31/2024 9:36 AM EST Pulse - - Temperature - - Respiratory Rate - - Oxygen Saturation - - Inhaled Oxygen Concentration - - Weight 104 kg (229 lb) 05/31/2024 9:36 AM EST Height - - Body Mass Index - - Plan of Treatment Upcoming Encounters Date Type Department Care Team (Late st Contact Info) Description 06/06/2025 9:00 AM EST Office Visit [facility] [address] [facility] [place] [address] Noah Sotelo DO [address] [facility] [address] [place], [place] [id number] Health Maintenance Due Date Last Done Comments CT Colonography 1965 Colonoscopy 1965 FIT 1965 FOBT 1965 Sigmoidoscopy 1963 HPV/Cotest 05/25/2024 Influenza Vaccine (Season Ended) 2025 02/13/20 15 Mammogram 07/28/2025 07/28/2024, 06/12/2023 Colorectal Cancer Screening 12/04/2026 FIT-DNA 12/04/2026 12/05/2023, 10/17/2019 Cervical Cancer Screening 05/31/2027 Pap Smear 05/31/2027 05/31/2024, 05/25/2023 Procedures Procedure Name Priority Date/Time Associated Diagnosis Comments MM TOMOSYNTHESIS SCREENING BI 07/28/2024 7:34 AM EDT PAP SMEAR Routine 05/31/2024 12:00 AM EST from Last 3 Months or Most Recently Relevant to Health Maintenance Results * MM TOMOSYNTHESIS SCREENING BI (07/28/2024 7:34 AM EDT) Anatomical Region Laterality Modality Other 07/28/2024 7:34 AM EDT Narrative 07/28/2024 7:35 [place] [address] Mammography Report Signed Patient: IZABELLA LOU MR#: [id number] : 1965 Acct:[id number] Age/Sex: 59 / F ADM Date: 07/27/24 Loc: MAMMO Attending Dr: Noah Sotelo D.O. Ordering Physician: Noah Sotelo D.O. Results: Date of Service: 07/27/24 Follow Up: Procedure(s): MM tomosynthesis screening BI Accession Number(s): [id number] cc: Noah Sotelo D.O.; Sacha Monroy M.D. Patient Name: IZABELLA LOU MR#: [id number] : 1965 Exam Date: 07/27/2024 Ordering Doctor: DR Noah Sotelo . RADIOLOGY REPORT PROCEDURE: MM TOMOSYNTHESIS SCREENING BI COMPARISON: MM TOMOSYNTHESIS SCREENING BI, 06/12/2023. MG MAMM SCREEN 3D SUMI CAD, 05/09/2021. MG MAMM SCREEN SUMI W CAD, 03/31/2017. MAMMO POST BIOPSY UNILATERAL LEFT, 05/13/2012. INDICATIONS: Screening Calculator Name NCI Breast Cancer Risk Assessment Tool 5 Year Breast Cancer Risk 1.80% Lifetime Breast Cancer Risk 8.70% Personal Breast Cancer No Personal Ovarian Cancer No Treatments None Family Cancers None LOCATION: [facility] BREAST COMPOSITION: The breasts are heterogeneously dense,which may obscure small masses. RIGHT BREAST: No significant suspicious finding. LEFT BREAST: No significant suspicious finding. No significant change has occurred. CAT 2: benign RECOMMENDATIONS: ROUTINE MAMMOGRAM AND CLINICAL EVALUATION IN 12 MONTHS. PLEASE NOTE: A NORMAL MAMMOGRAM DOES NOT EXCLUDE THE POSSIBILITY OF BREAST CANCER. A CLINICALLY SUSPICIOUS PALPABLE LUMP SHOULD BE BIOPSIED. Dictated by: Glen Coleman DO on 07/28/2024 at 07:23 Approved by: Glen Coleman DO on 07/28/2024 at 07:33 Dictated By: Glen Coleman D.O. Signed By: 07/28/24 0735 DD/ 0734 TD/TT: Engraving Press Operator: Procedure Note Radiology, Radiologist, MD - 07/28/2024 [place] [address] Mammography Report Signed Patient: IZABELLA LOU RMR#: [id number] : 1965Acct:[id number] Age/Sex: 59 / FADM Date: 07/27/24 Loc: MAMMO Attending Dr: Noah Sotelo D.O. Ordering Physician: Noah Sotelo D.O.Results: Date of Service: 07/27/24Follow Up: Procedure(s): MM tomosynthesis screening BI Accession Number(s): [id number] cc: Noah Sotelo D.O.; Sacha Monroy M.D. Patient Name: IZABELLA LOU MR#: [id number] : 1965 Exam Date: 07/27/2024 Ordering Doctor: DR Noah Sotelo . RADIOLOGY REPORT PROCEDURE: MM TOMOSYNTHESIS SCREENING BI COMPARISON: MM TOMOSYNTHESIS SCREENING BI, 06/12/2023. MG MAMM [id number] SUMI CAD, 05/09/2021. MG MAMM SCREEN SUMI W CAD, 03/31/2017. MAMMO POSTBIOPSY UNILATERAL LEFT, 05/13/2012. INDICATIONS: Screening Calculator Name NCI Breast Cancer Risk Assessment Tool 5 Year Breast Cancer Risk 1.80% Lifetime Breast Cancer Risk 8.70% Personal Breast Cancer No Personal Ovarian Cancer No Treatments None Family Cancers None LOCATION: [facility] BREAST COMPOSITION: The breasts are heterogeneously dense,which may obscure small masses. RIGHT BREAST: No significant suspicious finding. LEFT BREAST: No significant suspicious finding. No significant change has occurred. CAT 2: benign RECOMMENDATIONS: ROUTINE MAMMOGRAM AND CLINICAL EVALUATION IN 12 MONTHS. PLEASE NOTE: A NORMAL MAMMOGRAM DOES NOT EXCLUDE THE POSSIBILITY OFBREAST CANCER. A CLINICALLY SUSPICIOUS PALPABLE LUMP SHOULD BE BIOPSIED. Dictated by: Glen Coleman DO on 07/28/2024 at 07:23 Approved by: Glen Coleman DO on 07/28/2024 at 07:33 Dictated By: Glen Coleman D.O. Signed By:07/28/24 0735 DD/ 0734 TD/TT: Engraving Press Operator: us Noah Sotelo DO [facility] Final Result * Pap Smear (05/31/2024 12:00 AM EST) Swab Cervical swab / Unknown us [facility] Nurse LAB CYTOLOGY ORDERABLES Final Result EXTERNAL LAB from Last 3 Months or Most Recently Relevant to Health Maintenance Insurance [facility] Care Teams Tram Operator Relationship Specialty Start Date End Date Sacha Monroy MD PCP - General Family Medicine 05/25/23
--- OUTSIDE RECORDS SUMMARY | 2024-09-23 12:43 | XMS_ITS | Encounter Summary ---
Author Organization [facility] Address [address] [place] [address] Care Team Providers Care Car Whacker Name Role Phone Sacha Monroy MD Primary Care Provider [phone] Encounter Details Date Type Department Care Team (Late st Contact Info) Description 06/12/2023 Clinisync Result Encounter [facility] Unsolicited Bill Sotelo, DO [address] [place] [address] Social History Tobacco Use Types Packs/Day Years [...] 06/06/2025 9:00 AM EST Office Visit [facility] [address] [place] [id number] Bill Sotelo, DO [address] [place] [address] documented as of this encounter Procedures Procedure Name Priority Date/Time Associated Diagnosis Comments XR DEXA AXIAL SKELETON 06/12/2023 11:18 AM EST documented in this encounter Results * XR DEXA AXIAL SKELETON (06/12/2023 11:18 AM EST) Anatomical Region Laterality Modality Other 06/12/2023 11:1 8 AM EST Narrative 06/12/2023 11:21 AM EST [address] [address] XRay Report Signed Patient: IZABELLA LOU MR#: [id number] : 1965 Acct:[id number] Age/Sex: 57 / F ADM Date: 06/12/23 Loc: MAMMO Attending Dr: Bill Sotelo D.O. Ordering Physician: Bill Sotelo D.O. Date of Service: 06/12/23 Procedure(s): XR DEXA axial skeleton Accession Number(s): [id number] cc: iBll Sotelo D.O.; Sacha Monroy M.D. [address] [address] Patient Name: IZABELLA LOU MRN: [id number] date: 1965 Sex: F [facility]igned [facility] Current Patient Location: [facility] Accession/Order Number: [id number] Exam Date: 06/12/2023 10:20 Report Date: 06/12/2023 11:18 At the request of: BILL SOTELO Procedure: XR DEXA axial skeleton EXAMINATION: XR DEXA axial skeleton, 06/12/2023 10:20 AM EST HISTORY: Post Menopausal State Z78.0 COMPARISON: 2021 TECHNIQUE: Dual-energy X-ray absorptiometry (DEXA) bone density study performed for the axial skeleton. HISTORY: Post Menopausal State Z78.0 FINDINGS: Bone mineral density AP spine L1-L4 measures 1.572 g/sq cm. T score 3.3. WHO classification: Normal. Lowest bone mineral density left femoral trochanter measures 0.971 g/sq cm. T score 1.0. WHO classification: Normal XR/XR DEXA axial skeleton IMPRESSION: Normal bone mineral density. Low fracture risk Electronically authenticated by: CALVIN SMITH Date: 06/12/2023 11:18 Dictated By: Calvin Smith M.D. Signed By: 06/12/23 1121 DD/ 1118 TD/TT: Superintendent [employer]: Procedure Note Radiology, Radiologist, - 06/12/2023 [facility] [place] [id number] XRay Report Signed Patient: IZABELLA LOU RMR#: [id number] : 1965Acct:[id number] Age/Sex: 57 / FADM Date: 06/12/23 Loc: MAMMO Attending Dr: Bill Sotelo D.O. Ordering Physician: Bill Sotelo D.O. Date of Service: 06/12/23 Procedure(s): XR DEXA axial skeleton Accession Number(s): [id number] cc: Bill Sotelo D.O.; Sacha Monroy M.D. [facility] [place] [id number] Patient Name: IZABELLA LOU MRN: [id number] date: 1965 Sex: F Assigned Patient Location: [facility] Current Patient Location: [facility] Accession/Order Number: [id number] Exam Date: 06/12/2023 10:20 Report Date: 06/12/2023 11:18 At the request of: BILL SOTELO Procedure: XR DEXA axial skeleton EXAMINATION: XR DEXA axial skeleton, 06/12/2023 10:20 AM EST HISTORY: Post Menopausal State Z78.0 COMPARISON: 2021 TECHNIQUE: Dual-energy X-ray absorptiometry (DEXA) bone density study performed for the axial skeleton. HISTORY: Post Menopausal State Z78.0 FINDINGS: Bone mineral density AP spine L1-L4 measures 1.572 g/sq cm. T score 3.3.WHO classification: Normal. Lowest bone mineral density left femoral trochanter measures 0.971 g/sqcm. T score 1.0. WHO classification: Normal XR/XR DEXA axial skeleton IMPRESSION: Normal bone mineral density. Low fracture risk Electronically authenticated by: CALVIN SMITH Date: 06/12/2023 11:18 Dictated By: Calvin mSith M.D. Signed By:06/12/23 1121 DD/ 1118 TD/TT: Superintendent [employer]: us Bill Sotelo DO [facility] Final Result documented in this encounter Visit Diagnoses Not on filedocumented in this encounter Care Teams Car Whacker Relationship Specialty Start Date End Date Sacha Monroy MD PCP - General Family Medicine 05/25/23 documented as of this encounter
--- OUTSIDE RECORDS SUMMARY | 2024-09-23 12:43 | XMS_ITS | Patient Health Record ---
Author Organization [facility] in [place] Address [address] [place] [address] Care Team Providers [employer] Program Director Name Role Phone Milton Monroy Primary Care Provider Latrice Larson Unavailable [phone] Allergies No Known Allergies Results Component Value Reference Range Notes AMYLASE Reviewed date:09/03/2024 05:13:25 PM Interpretation: Performing Lab: Notes/Report: [facility] , Amylase 157 25-115 U/L Performing Lab: see note ML - [facility] LB CBC AUTO DIFF Reviewed date:09/03/2024 05:13:25 PM Interpretation: Performing Lab: Notes/Report: [facility] , White Blood Count 5.7 4.0-11.0 10 3/uL Red Blood Count 4.40 4.20-5.40 10 6/uL Hemoglobin 13.1 12.0-16.0 g/dL Hematocrit 40.6 36.0-48.0 % Mean Corpuscular Volume 92.3 81.0-99.0 fL Mean Corpuscular Hemoglobin 29.8 26.7-34.0 pg Mean Corpuscular HGB Conc 32.3 29.9-35.2 g/dL Red Cell Distribution Width 13.2 11.0-15.0 % Platelet Count 247 150-450 10 3/uL Mean Platelet Volume 10.9 9.5-13.5 fL Neutrophils Percent Auto 58.3 43.0-75.0 % Lymphocytes Percent Auto 28.6 20.5-60.0 % Monocytes Percent Auto 6.5 1.7-12.0 % Eosinophils Percent Auto 6.0 0.9-7.0 % Basophils Percent Auto 0.2 0.2-2.0 % Immature Granulocytes Pct Auto 0.4 0.0-0.5 % Neutrophils Absolute Auto 3.3 1.4-6.5 10 3/uL Lymphocytes Absolute Auto 1.6 1.2-3.8 10 3/uL Monocytes Absolute Auto 0.4 0.3-0.8 10 3/uL Eosinophils Absolute Auto 0.3 0.0-0.7 10 3/uL Basophils Absolute Auto 0.0 0.0-0.1 10 3/uL Immature Granulocytes Abs Auto 0.02 0.00-0.03 10 3/uL Performing Lab: see note ML - [facility] LB LIPASE Reviewed date:09/03/2024 05:13:25 PM Interpretation: Performing Lab: Notes/Report: [facility] , Lipase 84.0 16.0-77.0 U/L Performing Lab: see note ML - [facility] LB PROF 14(COMP METB) Reviewed date:09/03/2024 05:13:25 PM Interpretation: Performing Lab: Notes/Report: [facility] , Sodium 138 136-145 mmol/L Potassium 4.2 3.5-5.1 mmol/L Chloride 100 98-107 mmol/L Carbon Dioxide 30.3 21.0-32.0 mmol/L Anion Gap 11.9 Glucose 99 74-106 mg/dL Blood Urea Nitrogen 14.0 7.0-18.0 mg/dL Creatinine 0.97 0.55-1.02 mg/dL Estimated GFR ( Ninfa >60 >=60 mL/min/1.73m 2 Estimated GFR (Non- Lydia 58 >=60 mL/min/1.73m 2 BUN Creatinine Ratio 14.4 Calcium 9.1 8.5-10.1 mg/dL Bilirubin Total 0.4 0.2-1.0 mg/dL Aspartate Amino Transferase 67 15-37 U/L Alanine Aminotransferase 232 14-59 U/L Alkaline Phosphatase 231 46-116 U/L Total Protein 7.2 6.4-8.2 g/dL Albumin Level 3.7 3.4-5.0 g/dL Globulin 3.5 Albumin Globulin Ratio 1.1 Performing Lab: see note ML - [facility] LB XR hip RT 2V w/ pelvis Reviewed date:02/10/2024 08:02:50 PM Interpretation: Performing Lab: Notes/Report: Source Facility: [place] [address] [place] [address] XRay Report Signed Patient: JUAN CARLOS OGDEN MR#: [id number] : 1965 Acct:[id number] Age/Sex: 58 / F ADM Date: 02/09/24 Loc: RAD Attending Dr: Ciarra Monroy M.D. Ordering Physician: Ciarra Monroy M.D. Date of Service: 02/09/24 Procedure(s): XR hip RT 2V w/ pelvis Accession Number(s): [id number] cc: Ciarra Monroy M.D. The [place] [address] Patient Name: JUAN CARLOS OGDEN MRN: [id number] date: 1965 Sex: F Assigned Patient Location: [facility] Current Patient Location: Accession/Order Number: [id number] Exam Date: 02/09/2024 08:27 Report Date: 02/10/2024 05:56 At the request of: CIARRA MONROY Procedure: XR hip RT 2V w/ pelvis PROCEDURE: XR hip RT 2V w/ pelvis HISTORY: Right Hip Pain M25.551 COMPARISON: None. FINDINGS: BONES:No fracture, acute abnormality, or significant arthropathy. SOFT TISSUES:No visible soft tissue swelling. EFFUSION:None visible. OTHER: Negative. XR/XR hip RT 2V w/ pelvis IMPRESSION: 1. No acute or suspicious bone abnormality. 2. No significant degenerative changes. Electronically authenticated by: KAN FROST Date: 02/10/2024 05:56 Dictated By: Kan Frost M.D. Signed By: 02/10/24 0559 DD/ 0556 TD/TT: Operator Engineer: [place] [address] XRay Report Signed Patient: JUAN CARLOS OGDEN MR#: [id number] : 1965 Acct:[id number] Age/Sex: 58 / F ADM Date: 02/09/24 Loc: RAD Attending Dr: Ciarra Monroy M.D. Ordering Physician: Ciarra Monroy M.D. Date of Service: 02/09/24 Procedure(s): XR hip RT 2V w/ pelvis Accession Number(s): [id number] cc: Ciarra Monroy M.D. The [place] [id number] Patient Name: JUAN CARLOS OGDEN MRN: [id number] date: 1965 Sex: F Assigned Patient Location: [facility] Current Patient Location: Accession/Order Number: [id number] Exam Date: 02/09/2024 08:27 Report Date: 02/10/2024 05:56 At the request of: CIARRA MONROY Procedure: XR hip RT 2V w/ pelvis PROCEDURE: XR hip RT 2V w/ pelvis HISTORY: Right Hip Pain M25.551 COMPARISON: None. FINDINGS: BONES:No fracture, acute abnormality, or significant arthropathy. SOFT TISSUES:No visible soft tissue swelling. EFFUSION:None visible. OTHER: Negative. XR/XR hip RT 2V w/ pelvis IMPRESSION: 1. No acute or suspicious bone abnormality. 2. No significant degenerative changes. Electronically authenticated by: KAN FROST Date: 02/10/2024 05:56 Dictated By: Kan Frost M.D. Signed By: 02/10/2459 DD/ TD/TT: Operator Engineer: LIVER PROFILE Reviewed date:03/03/2024 09:55:16 PM Interpretation: Performing Lab: Notes/Report: [facility] , Bilirubin Total 0.3 0.2-1.0 mg/dL Bilirubin Direct 0.1 0.0-0.2 mg/dL Aspartate Amino Transferase 23 15-37 U/L Alanine Aminotransferase 54 14-59 U/L Alkaline Phosphatase 88 46-116 U/L Total Protein 6.9 6.4-8.2 g/dL Albumin Level 3.5 3.4-5.0 g/dL Globulin 3.4 Albumin Globulin Ratio 1.0 Performing Lab: see note ML - [facility] LB NM yanique perf SPECT rest str Reviewed date:07/27/2024 06:31:34 PM Interpretation: Performing Lab: Notes/Report: Source Facility: [facility]-[address] [place] [address] Nuclear Medicine Report Signed Patient: JUAN CARLOS OGDEN MR#: [id number] : 1965 Acct:[id number] Age/Sex: 59 / F ADM Date: 07/26/24 Loc: NM Attending Dr: Ciarra Monroy M.D. Ordering Physician: Ciarra Monroy M.D. Date of Service: 07/26/24 Procedure(s): NM yanique perf SPECT rest str Accession Number(s): [id number] cc: Ciarra Monroy M.D. Patient Name: JUAN CARLOS OGDEN MR#: [id number] : 1965 Exam Date: 07/26/2024 Ordering Doctor: DR Ciarra Monroy . RADIOLOGY REPORT PROCEDURE: NM YANIQUE PERF SPECT REST STR COMPARISON: None. INDICATIONS: CHEST PAIN, ABNORMAL STRESS TEST TECHNIQUE: Exam Description: Stress/Rest one day protocol gated SPECT Rest Imagin.1 mCi Tc-99m Cardiolite IV on 07/26/2024 Stress Imaging 30.8 mCi Tc-99m Cardiolite IV on 07/26/2024 Exercise Protocol: Boby Heart Rate (bpm): Rest: 73 Max: 148 PMHR: 93 Blood Pressure: Rest: 118/87 Max: 170/78 Exercise Time: Minutes: 6 Seconds: 03 Stage Reached: Stage: 2 Mets 7.0 Symptoms: Rest and peak stress ECG findings were pending and the exercise portion of the study was pending per attending physician [facility] . For more details, please see separate cardiac stress test report. FINDINGS: QUALITY OF STUDY: Good PERFUSION DEFECT: None LOCATION: N/A SIZE: N/A SEVERITY: N/A TYPE: N/A WALL MOTION: Normal wall motion LV SIZE: 70 mL. TID / TCD: 0.6 LVEF: Calculated EF 85%. SUMMARY: Myocardial perfusion imaging study is normal CONCLUSION: 1. Myocardial perfusion is normal 2. Global left ventricular systolic function is hyperdynamic 3. No transient ischemic dilatation Dictated by: Jozef Parker M.D. on 07/27/2024 at 14:15 Approved by: Jozef Parker M.D. on 07/27/2024 at 14:17 Dictated By: Jozef Parker M.D. Signed By: 07/27/24 1418 DD/ 1417 TD/TT: Operator Engineer: [place] [address] Nuclear Medicine Report Signed Patient: JUAN CARLOS OGDEN MR#: [id number] : 1965 Acct:[id number] Age/Sex: 59 / F ADM Date: 07/26/24 Loc: NM Attending Dr: Ciarra Monroy M.D. Ordering Physician: Ciarra Monroy M.D. Date of Service: 07/26/24 Procedure(s): NM yanique perf SPECT rest str Accession Number(s): [id number] cc: Ciarra Monroy M.D. Patient Name: JUAN CARLOS OGDEN MR#: [id number] : 1965 Exam Date: 07/26/2024 Ordering Doctor: DR Ciarra Monroy . RADIOLOGY REPORT PROCEDURE: NM YANIQUE PERF SPECT REST STR COMPARISON: None. INDICATIONS: CHEST PAIN, ABNORMAL STRESS TEST TECHNIQUE: Exam Description: Stress/Rest one day protocol gated SPECT Rest Imagin.1 mCi Tc-99m Cardiolite IV on 07/26/2024 Stress Imaging 30.8 mCi Tc-99m Cardiolite IV on 07/26/2024 Exercise Protocol: Boby Heart Rate (bpm): Rest: 73 Max: 148 PMHR: 93 Blood Pressure: Rest: 118/87 Max: 170/78 Exercise Time: Minutes: 6 Seconds: 03 Stage Reached: Stage: 2 Mets 7.0 Symptoms: Rest and peak stress ECG findings were pending and the exercise portion of the study was pending per attending physician [facility] . For more details, please see separate cardiac stress test report. FINDINGS: QUALITY OF STUDY: Good PERFUSION DEFECT: None LOCATION: N/A SIZE: N/A SEVERITY: N/A TYPE: N/A WALL MOTION: Normal wall motion LV SIZE: 70 mL. TID / TCD: 0.6 LVEF: Calculated EF 85%. SUMMARY: Myocardial perfusion imaging study is normal CONCLUSION: 1. Myocardial perfusion is normal 2. Global left ventricular systolic function is hyperdynamic 3. No transient ischemic dilatation Dictated by: Jozef Parker M.D. on 07/27/2024 at 14:15 Approved by: Jozef Parker M.D. on 07/27/2024 at 14:17 Dictated By: Jozef Parker M.D. Signed By: 07/27/24 1418 DD/ 1417 TD/TT: Operator Engineer: US right upper quadrant Reviewed date:09/06/2024 12:49:31 PM Interpretation: Performing Lab: Notes/Report: Source Facility: [place] [address] Ultrasound Report Signed Patient: JUAN CARLOS OGDEN MR#: [id number] : 1965 Acct:[id number] Age/Sex: 59 / F ADM Date: 09/06/24 Loc: US Attending Dr: Ciarra Monroy M.D. Ordering Physician: Ciarra Monroy M.D. Date of Service: 09/06/24 Procedure(s): US right upper quadrant Accession Number(s): [id number] cc: Ciarra Monroy M.D. [place] [address] Patient Name: JUAN CARLOS OGDEN MRN: [facility]:[id number] date: 1965 Sex: F Assigned Patient Location: Current Patient Location: US Accession/Order Number: [id number] Exam Date: 09/06/2024 10:26 Report Date: 09/06/2024 10:45 At the request of: CIARRA MONROY MD Procedure: US right upper quadrant LIMITED ABDOMINAL ULTRASOUND: CLINICAL HISTORY: Pancreatitis COMPARISON: None TECHNIQUE: Grayscale and color Doppler images of the right upper quadrant organs were obtained. FINDINGS: Pancreas: Small cyst involving the pancreatic tail measuring 6 mm. Liver: Unremarkable. Gallbladder: Removed. CBD: 3.4 mm RT KIDNEY: No Hydronephrosis US/US right upper quadrant IMPRESSION: SMALL CYSTS INVOLVING THE PANCREATIC TAIL MEASURING 6 MM. THIS CAN BE FURTHER EVALUATED BY MRI/MRCP WITH AND WITHOUT IV CONTRAST.. Impression dictated by: Daniel Almanzar Jr., D.O. 09/06/2024 10:45 AM Dictation Location: [place] [address] Electronically authenticated by: [id number] Y Date: 09/06/2024 10:45 Dictated By: Daniel Almanzar M.D. Signed By: 09/06/247 DD/ 44 TD/TT: Operator Engineer: [place] [address] Ultrasound Report Signed Patient: JUAN CARLOS OGDEN MR#: [id number] : 1965 Acct:[id number] Age/Sex: 59 / F ADM Date: 09/06/24 Loc: US Attending Dr: Ciarra Monroy M.D. Ordering Physician: Ciarra Monroy M.D. Date of Service: 09/06/24 Procedure(s): US right upper quadrant Accession Number(s): [id number] cc: Ciarra Monroy M.D. [place] [id number] Patient Name: JUAN CARLOS OGDEN MRN: [id number] date: 1965 Sex: F Assigned Patient Location: Current Patient Location: Accession/Order Number: [id number] Exam Date: 09/06/2024 10:26 Report Date: 09/06/2024 10:45 At the request of: CIARRA MONROY MD Procedure: US right upper quadrant LIMITED ABDOMINAL ULTRASOUND: CLINICAL HISTORY: Pancreatitis COMPARISON: None TECHNIQUE: Grayscale and color Doppler images of the right upper quadrant organs were obtained. FINDINGS: Pancreas: Small cyst involving the pancreatic tail measuring 6 mm. Liver: Unremarkable. Gallbladder: Removed. CBD: 3.4 mm RT KIDNEY: No Hydronephrosis US/US right upper quadrant IMPRESSION: SMALL CYSTS INVOLVING THE PANCREATIC TAIL MEASURING 6 MM. THIS CAN BE FURTHER EVALUATED BY MRI/MRCP WITH AND WITHOUT IV CONTRAST.. Impression dictated by: Daniel Almanzar Jr., D.O. 09/06/2024 10:45 AM Dictation Location: [place] [address] Electronically authenticated by: [id number] Y Date: 09/06/2024 10:45 Dictated By: Daniel Almanzar M.D. Signed By: 09/06/24 1047 DD/ 1045 TD/TT: Operator Engineer: AMYLASE Reviewed date:09/13/2024 02:58:03 PM Interpretation: Performing Lab: Notes/Report: [facility] , Amylase 60 25-115 U/L Performing Lab: see note ML - [facility] LB LIPASE Reviewed date:09/13/2024 02:58:03 PM Interpretation: Performing Lab: Notes/Report: [facility] , Lipase 50.0 16.0-77.0 U/L Performing Lab: see note ML - [facility] LB PROF 14(COMP METB) Reviewed date:09/05/2024 03:01:34 PM Interpretation: Performing Lab: Notes/Report: [facility] , Sodium 140 136-145 mmol/L Potassium 4.1 3.5-5.1 mmol/L Chloride 102 98-107 mmol/L Carbon Dioxide 30.7 21.0-32.0 mmol/L Anion Gap 11.4 Glucose 116 74-106 mg/dL Blood Urea Nitrogen 11.0 7.0-18.0 mg/dL Creatinine 0.92 0.55-1.02 mg/dL Estimated GFR ( Ninfa >60 >=60 mL/min/1.73m 2 Estimated GFR (Non- Lydia >60 >=60 mL/min/1.73m 2 BUN Creatinine Ratio 12.0 Calcium 9.3 8.5-10.1 mg/dL Bilirubin Total 0.4 0.2-1.0 mg/dL Aspartate Amino Transferase 20 15-37 U/L Alanine Aminotransferase 103 14-59 U/L Alkaline Phosphatase 162 46-116 U/L Total Protein 7.0 6.4-8.2 g/dL Albumin Level 3.7 3.4-5.0 g/dL Globulin 3.3 Albumin Globulin Ratio 1.1 Performing Lab: see note ML - [facility] LB LIPASE Reviewed date:09/05/2024 03:01:34 PM Interpretation: Performing Lab: Notes/Report: [facility] , Lipase 64.0 16.0-77.0 U/L Performing Lab: see note ML - [facility] LB AMYLASE Reviewed date:09/05/2024 03:01:34 PM Interpretation: Performing Lab: Notes/Report: [facility] , Amylase 69 25-115 U/L Performing Lab: see note ML - [facility] LB CA 19-9 Reviewed date:09/03/2024 05:13:25 PM Interpretation: Performing Lab: Notes/Report: [facility] , CA 19-9 4 0-35 U/mL Values obtained with different assay methods or kits cannot Transition Specialist: Prakash Ballesteros PhD, Phone: [phone] [employer] Electrochemiluminescence Immunoassay disease. (ECLIA) be used interchangeably. Results cannot be interpreted as Performed at: [facility] [phone] absolute evidence of the presence or absence of malignant Performing Lab: see note - [facility] MM tomosynthesis screening B I Reviewed date:07/28/2024 07:23:14 PM Interpretation: Performing Lab: Notes/Report: Source Facility: [place] [address] [place] [address] Mammography Report Signed Patient: JUAN CARLOS OGDEN MR#: [id number] : 1965 Acct:[id number] Age/Sex: 59 / F ADM Date: 07/27/24 Loc: MAMMO Attending Dr: Noah Sotelo D.O. Ordering Physician: Noah Sotelo D.O. Results: Date of Service: 07/27/24 Follow Up: Procedure(s): MM tomosynthesis screening BI Accession Number(s): [id number] cc: Noah Sotelo D.O.; Ciarra Monroy M.D. Patient Name: JUAN CARLOS OGDEN MR#: [id number] : 1965 Exam Date: 07/27/2024 Ordering Doctor: [...] Treatments None Family Cancers None LOCATION: [facility] BREAST COMPOSITION: The breasts are heterogeneously dense,which [...] Signed By: 07/28/24 0735 DD/ 0734 TD/TT: Operator Engineer: [place] [address] Mammography Report Signed Patient: JUAN CARLOS OGDEN MR#: [id number] : 1965 Acct:[id number] Age/Sex: 59 / F ADM Date: 07/27/24 Loc: MAMMO Attending Dr: Noah Sotelo D.O. Ordering Physician: Noah Sotelo D.O. Results: Date of Service: 07/27/24 Follow Up: Procedure(s): MM tomosynthesis screening BI Accession Number(s): [id number] cc: Noah Sotelo D.O.; Ciarra Monroy M.D. Patient Name: JUAN CARLOS OGDEN MR#: [id number] : 1965 Exam Date: 07/27/2024 Ordering Doctor: [...] Treatments None Family Cancers None LOCATION: [facility] BREAST COMPOSITION: The breasts are heterogeneously dense,which [...] Signed By: 07/28/24 0735 DD/ 0734 TD/TT: Operator Engineer: Dav MONAHAN HPV,Age Gdln Reviewed date:06/08/2024 12:25:42 PM Interpretation: Performing Lab: Notes/Report: BRUSH-SPATULA CERVIX ENDOCERVIX [facility] , Age Gdln ACOG Testing Note . Clinician Provided Cytology Information -- Desiree Hall MD, 01 =G [facility] L-Low Normal,H-High Normal,LL-Alert Low,HH-Alert High [address] [facility] [place] [address] Performed at: FLAG LEGEND: TESTS RESULT FLAG UNITS REF RANGE LAB Age Algo ACOG Alejandra... 30-65 01 -- -- <-Panic Low,>-Panic High,A-Abnormal,AA-Critical Abnormal No. of containers..01 ThinPrep Vial Source.............Cervix;End ocervix IGP, Aptima HPV, rfx 16/18,45 Note . Specimen adequacy: 02 <-Panic Low,>-Panic High,A-Abnormal,AA-Critical Abnormal FLAG LEGEND: Performed by: 02 Test Methodology: Note 03 occur. TESTS RESULT FLAG UNITS REF RANGE LAB -- Desiree Hall MD, cells (endocervical component) are present. NEGATIVE FOR INTRAEPITHELIAL LESION OR MALIGNANCY. HPV Genotype Reflex Note 02 Criteria not met, HPV Genotype not performed. QC reviewed by: 02 should not be used as the sole means of detecting cervical James Dixon MD, cancer. Both false-positive and false-negative reports do 03 [facility] . 02 uterine cervix. It is not a diagnostic procedure and The Pap smear is a screening test designed to aid in the This liquid based ThinPrep(R) pap test was screened with the use of an image guided system. [address] [employer] [place] [address] -- Nuris Mason, Freight Traffic Consultant (ASCP) 02 [facility] Cyto Histo detection of premalignant and malignant conditions of the THIS SPECIMEN WAS RESCREENED PART OF OUR WIND TUNNEL MECHANIC PROGRAM. Note: Note 03 -- Performed at: CELLULAR CHANGES ASSOCIATED WITH ATROPHY ARE PRESENT. [address] [place] [address] Satisfactory for evaluation. Endocervical and/or squamous metaplastic DIAGNOSIS: 02 Bryant Samaniego, Freight Traffic Consultant (ASCP) L-Low Normal,H-High Normal,LL-Alert Low,HH-Alert High HPV Aptima Negative Negative risk HPV types (16,18,31,33,35,39,45,51,52,5 6,58,59,66,68) Performed at: [facility] Cyto Histo This nucleic acid amplification test detects fourteen high- [address] [place] [address], [place] [id number] Transition Specialist: James Dixon MD, Phone: [phone] [address] [place], [place] [id number] Transition Specialist: Desiree Hall MD, Phone: [phone] without differentiation. Performed at: =[facility] Performing Lab: see note [facility] LB Hepatitis B Surf Ab Quant Reviewed date:02/18/2024 12:49:01 PM Interpretation: Performing Lab: Notes/Report: [facility] , Hepatitis B Surf Ab Quant 102.0 Immunity>10 mIU/mL Consistent with Immunity >10.0 Status of Immunity Anti-HBs Level Inconsistent with Immunity 0.0 - 10.0 Performing Lab: see note [facility] LB HCV Antibody Reviewed date:02/18/2024 12:49:01 PM Interpretation: Performing Lab: Notes/Report: [facility] , HCV Antibody Non Reactive Non Reactive Equivocal and Reactive HCV antibody results should be Transition Specialist: Prakash Ballesteros PhD, Phone: [phone] previously resolved infection and active infection. of active HCV infection. followed up with an HCV RNA test to support the diagnosis HCV antibody alone does not differentiate between Performed at: [address] [id number] Performing Lab: see note [facility] Rapid Plasma Reagin, Quant Reviewed date:02/18/2024 12:49:01 PM Interpretation: Performing Lab: Notes/Report: [facility] , Rapid Plasma Reagin, Quant Non Reactive NonRea<1:1 titer Treponema pallidum (Syphilis) Screening [place] ([id number]) or [address] [place] [phone] Rapid Plasma Reagin (RPR) Test With Reflex to Quantitative RPR and Confirmatory Treponema pallidum Antibodies Transition Specialist: Prakash Ballesteros PhD, Phone: [phone] ([phone]). Please Note: This test does not meet current guidelines for treated for syphilis infection. To screen for syphilis screening and diagnosis of syphilis. This test is intended for following treatment response in patients being treponema-specific assay should be utilized, such as Performed at: [facility] infection, a reflex cascade that includes both RPR and a Performing Lab: see note [facility] LB HIV Ab/p24 Ag with Reflex Reviewed date:02/18/2024 12:49:01 PM Interpretation: Performing Lab: Notes/Report: [facility] , HIV Ab/p24 Ag Screen Non Reactive Non Reactive HIV Negative Performed at: [facility] HIV-1/HIV-2 antibodies and HIV-1 p24 antigen were NOT [address] [place] [phone] detected. There is no laboratory evidence of HIV infection. Transition Specialist: Prakash Ballesteros PhD, Phone: [phone] Performing Lab: see note [facility] LB LIVER PROFILE Reviewed date:02/18/2024 12:49:01 PM Interpretation: Performing Lab: Notes/Report: [facility] , Bilirubin Total 0.4 0.2-1.0 mg/dL Bilirubin Direct 0.1 0.0-0.2 mg/dL Aspartate Amino Transferase 68 15-37 U/L Alanine Aminotransferase 175 14-59 U/L Alkaline Phosphatase 113 46-116 U/L Total Protein 7.1 6.4-8.2 g/dL Albumin Level 3.6 3.4-5.0 g/dL Globulin 3.5 Albumin Globulin Ratio 1.0 Performing Lab: see note - [facility] LB TSH Reviewed date:12/27/2023 09:12:17 PM Interpretation: Performing Lab: Notes/Report: [facility] , Thyroid Stimulating Hormone 1.516 0.358-3.740 uIU/mL Performing Lab: see note ML - [facility] LB PROF 14(COMP METB) Reviewed date:12/27/2023 09:12:17 PM Interpretation: Performing Lab: Notes/Report: [facility] , Sodium 139 136-145 mmol/L Potassium 4.5 3.5-5.1 mmol/L Chloride 102 98-107 mmol/L Carbon Dioxide 29.4 21.0-32.0 mmol/L Anion Gap 12.1 Glucose 99 74-106 mg/dL Blood Urea Nitrogen 17.0 7.0-18.0 mg/dL Creatinine 0.79 0.55-1.02 mg/dL Estimated GFR ( Ninfa >60 >=60 Estimated GFR (Non- Lydia >60 >=60 BUN Creatinine Ratio 21.5 Calcium 9.1 8.5-10.1 mg/dL Bilirubin Total 0.4 0.2-1.0 mg/dL Aspartate Amino Transferase 23 15-37 U/L Alanine Aminotransferase 51 14-59 U/L Alkaline Phosphatase 85 46-116 U/L Total Protein 6.8 6.4-8.2 g/dL Albumin Level 3.7 3.4-5.0 g/dL Globulin 3.1 Albumin Globulin Ratio 1.2 Performing Lab: see note ML - [facility] LB LIPID PROFILE Reviewed date:12/27/2023 09:12:17 PM Interpretation: Performing Lab: Notes/Report: [facility] , Triglycerides 156 <=150 mg/dL Cholesterol 265 <=200 mg/dL HDL Cholesterol 55 40-60 mg/dL > or =60 mg/dl - LOW CARDIOVASCULAR RISK <40 mg/dl - HIGH CARDIOVASCULAR RISK LDL Cholesterol Calculated 179.0 <100 mg/dl OPTIMAL 130-159 mg/dl BORDERLINE HIGH 160-189 mg/dl HIGH 100-129 mg/dl NEAR OR ABOVE OPTIMAL >190 mg/dl VERY HIGH VLDL CHOLESTEROL 31.2 Chol HDL Ratio 4.8 3.3 - 4.4 LOW RISK 4.4 - 7.1 AVERAGE RISK 7.1 - 11.0 MODERATE RISK >11.0 HIGH RISK Performing Lab: see note ML - [facility] LB GLYCOHEMOGLOBIN A1C Reviewed date:12/27/2023 09:12:17 PM Interpretation: Performing Lab: Notes/Report: [facility] , Glycohemoglobin A1C 5.7 4.5-6.2 % > 7.0 ADA THERAPEUTIC TARGET < 7.0 ADA RECOMMENDED LIMIT 4.0 - 6.0 ACTION SUGGESTED Estimated Average Glucose 117 Performing Lab: see note ML - [facility] [facility] FREE T4 Reviewed date:12/27/2023 09:12:17 PM Interpretation: Performing Lab: Notes/Report: [facility] , Free T4 0.98 0.76-1.46 ng/dL Performing Lab: see note ML - [facility] LB CBC AUTO DIFF Reviewed date:12/27/2023 09:12:17 PM Interpretation: Performing Lab: Notes/Report: [facility] , White Blood Count 4.5 4.0-11.0 10 3/uL Red Blood Count 4.40 4.20-5.40 10 6/uL Hemoglobin 13.2 12.0-16.0 g/dL Hematocrit 40.5 36.0-48.0 % Mean Corpuscular Volume 92.0 81.0-99.0 fL Mean Corpuscular Hemoglobin 30.0 26.7-34.0 pg Mean Corpuscular HGB Conc 32.6 29.9-35.2 g/dL Red Cell Distribution Width 13.2 11.0-15.0 % Platelet Count 232 150-450 10 3/uL Mean Platelet Volume 10.4 9.5-13.5 fL Neutrophils Percent Auto 61.1 43.0-75.0 % Lymphocytes Percent Auto 28.6 20.5-60.0 % Monocytes Percent Auto 7.0 1.7-12.0 % Eosinophils Percent Auto 2.6 0.9-7.0 % Basophils Percent Auto 0.7 0.2-2.0 % Immature Granulocytes Pct Auto 0.0 0.0-0.5 % Neutrophils Absolute Auto 2.8 1.4-6.5 10 3/uL Lymphocytes Absolute Auto 1.3 1.2-3.8 10 3/uL Monocytes Absolute Auto 0.3 0.3-0.8 10 3/uL Eosinophils Absolute Auto 0.1 0.0-0.7 10 3/uL Basophils Absolute Auto 0.0 0.0-0.1 10 3/uL Immature Granulocytes Abs Auto 0.00 0.00-0.03 10 3/uL Performing Lab: see note ML - [facility] LB PROF 14(COMP METB) Reviewed date:09/13/2024 02:58:03 PM Interpretation: Performing Lab: Notes/Report: [facility] , Sodium 139 136-145 mmol/L Potassium 4.1 3.5-5.1 mmol/L Chloride 102 98-107 mmol/L Carbon Dioxide 27.8 21.0-32.0 mmol/L Anion Gap 13.3 Glucose 149 74-106 mg/dL Blood Urea Nitrogen 11.0 7.0-18.0 mg/dL Creatinine 1.09 0.55-1.02 mg/dL Estimated GFR ( Ninfa >60 >=60 mL/min/1.73m 2 Estimated GFR (Non- Lydia 51 >=60 mL/min/1.73m 2 BUN Creatinine Ratio 10.1 Calcium 9.0 8.5-10.1 mg/dL Bilirubin Total 0.4 0.2-1.0 mg/dL Aspartate Amino Transferase 17 15-37 U/L Alanine Aminotransferase 35 14-59 U/L Alkaline Phosphatase 98 46-116 U/L Total Protein 6.7 6.4-8.2 g/dL Albumin Level 3.6 3.4-5.0 g/dL Globulin 3.1 Albumin Globulin Ratio 1.2 Performing Lab: see note ML - [facility] LB PROF 14(COMP METB) Reviewed date:09/09/2024 12:38:55 PM Interpretation: Performing Lab: Notes/Report: [facility] , Sodium 135 136-145 mmol/L Potassium 3.9 3.5-5.1 mmol/L Chloride 100 98-107 mmol/L Carbon Dioxide 28.4 21.0-32.0 mmol/L Anion Gap 10.5 Glucose 110 74-106 mg/dL Blood Urea Nitrogen 17.0 7.0-18.0 mg/dL Creatinine 1.03 0.55-1.02 mg/dL Estimated GFR ( Ninfa >60 >=60 mL/min/1.73m 2 Estimated GFR (Non- Lydia 54 >=60 mL/min/1.73m 2 BUN Creatinine Ratio 16.5 Calcium 9.2 8.5-10.1 mg/dL Bilirubin Total 0.5 0.2-1.0 mg/dL Aspartate Amino Transferase 15 15-37 U/L Alanine Aminotransferase 54 14-59 U/L Alkaline Phosphatase 118 46-116 U/L Total Protein 6.8 6.4-8.2 g/dL Albumin Level 3.7 3.4-5.0 g/dL Globulin 3.1 Albumin Globulin Ratio 1.2 Performing Lab: see note ML - [facility] LB LIPASE Reviewed date:09/09/2024 12:38:55 PM Interpretation: Performing Lab: Notes/Report: [facility] , Lipase 104.0 16.0-77.0 U/L Performing Lab: see note ML - [facility] LB AMYLASE Reviewed date:09/09/2024 12:38:55 PM Interpretation: Performing Lab: Notes/Report: [facility] , Amylase 97 25-115 U/L Performing Lab: see note ML - [facility] LB Reason For Referral Diagnosis 1 Occult blood in stoo ls (R19.5) Referral Organization [facility] Referring Provider First Name Milton Referring Provider Last Name Porfirio Referring Provider [facility] Referred Provider O[facility] Referred Provider Specialty General Surg michele Referral Priority Routine Diagnosis 1 Abnormal stress test (R94.39) Referral Organization [facility] Referring Provider First Name Milton Referring Provider Last Name Porfirio Referring Provider [facility] Referred Provider Rajeev Wong Referred Provider Specialty Cardiology Referral Priority Routine Medications Medication SIG (Take, Route, Frequency, Duration) Notes Start Date End Date Status Aspir-Low 81 MG 1 tablet Orally Once a day Active Diclofenac Sodium ER 100 MG Oral for 30 Days Active tiZANidine HCl 4 MG Oral for 30 Days PRN Active traZODone HCl 50 MG TAKE 1 TABLET BY DORYS TH EVERYDAY AT BEDTIME Oral for 30 Days Active Ventolin HFA 108 (90 Base) MCG/ACT 2 puff as needed Inhalation every 4 hrs for 30 PRN 05/21/2023 Active Bactrim DS 800-160 MG 1 tablet Orally bi d for 10 days 09/08/2024 Active Lisinopril 10 MG TAKE 1 TABLET (10 MG ) BY MOUTH DAILY. Oral for 30 Days Active metFORMIN HCl ER 500 MG Oral for 30 Days Active Multi Vitamin - 1 tablet Orally Once a day Active Pyridium 200 MG 1 tablet after meals Orally Three times a day for 2 days 09/08/2024 Active Rosuvastatin Calcium 5 MG TAKE 1 TABLET BY MOUTH EVERY DAY for 30 Not-Taking Latanoprost 0.005 % INSTILL 1 DROP INTO BOTH EYES ONCE A DAY AT BEDTIME Ophthalmic for 30 Days Active Social History Tobacco Use: Social History Observation Description Date Details (start date - stop date) Former Smoker NA - NA Tobacco Use/Smoking Question Answer Notes Patient is a former smoker How long has it been since you last smoked? > 10 years Alcohol Screen (Audit-C) Question Answer Notes Did you have a drink containing alcohol in the p ast year? No Points 0 Interpretation Negative AUDIT-C (Standard) Question Answer Notes Did you have a drink containing alcohol in the p ast year? No Points 0 Interpretation Negative Problems Problem Type SNOMED Code ICD Code Onset Dates Problem Status W/U Status Risk Notes Problem Well adult (532416132) Well adult (Z00.00) Active confirmed Problem Arthralgia of the pelvic region and thigh (662756279) Right hip pain (M25.551) Active confirmed Problem Cardiac ischemia (620638740) Cardiac ischemia (I25.9) Active confirmed Problem Right lower lobe pneumonia (751361430) Right lower lobe pneumonia (J18.9) Active confirmed Problem 57683339 Pure hypercholestero lemia, unspecified (E78.00) Active confirmed Problem Acute pancreatitis (724679957) Pancreatitis, acute (K85.90) Active confirmed Problem Cough (47824575) Cough (R05.9) Active confirmed Vital Signs Blood pressure diastolic 80 mm Hg 09/02/2024 Height 69 in 09/02/2024 Blood pressure systolic 128 mm Hg 09/02/2024 Weight 223.2 lbs 09/02/2024 BMI 32.96 kg/m2 09/02/2024 Procedures Procedure Date Ordered Date Performed Result Body Sit e ECG with Interpretation 06/07/2024 06/07/2024 N/A Cardiolyte Stress Test 07/11/2024 N/A Colonoscopy 04/06/2024 Normal Encounters Encounter Location Date Provider Diagnosis [facility] [address] [place] [address] 12/27/2023 Milton Hoy Pure hypercholesterolemia, unspecified E78.00 [facility] [address] [place] [address] 02/18/2024 Milton Hoy Elevated liver enzymes R74.8 [facility] [address] [facility] [place] [address] 03/03/2024 Latrice Larson [facility] [address] [facility] [place] [address] 03/29/2024 Milton Hoy Right hip pain M25.551 [facility] [address] [facility] [place] [address] 07/11/2024 Milton Hoy Cardiac ischemia I25.9 [facility] [address] [facility] [place] [address] 07/27/2024 Milton Hoy Abnormal stress test R94.39 [facility] [address] [place] [address] 09/01/2024 Milton Hoy Strep throat J02.0 [facility] [address] [facility] [place] [address] 09/03/2024 Milton Hoy [facility] [address] [facility] [place] [address] 09/06/2024 Milton Hoy Pancreatic cyst K86. 2 [facility] [address] [facility] [place] [address] 09/08/2024 Milton Hoy [facility] [address] [facility] [place] [address] 09/09/2024 Milton Hoy [facility] [address] [facility] [place] [address] 08/24/2024 Milton Hoy Strep throat J02.0 [facility] [address] [facility] [place] [address] 11/19/2023 Milton Hoy Well adult Z00.00 [facility] [address] [facility] [place] [address] 02/08/2024 Milton Hoy Cough R05.9 ; Right hip pain M25.551 and Occult blood in stools R19.5 [facility] [address] [place] [address] 06/07/2024 Milton Monroy Well adult Z00.00 an d Chest pain R07.9 [facility] [address] [place] [address] 09/02/2024 Milton Monroy Pancreatitis, acute K85.90 Assessments Encounter Date Diagnosis (ICD Code) Assessment Notes Treatment Notes Treatment Clinical Notes Section Notes 11/19/2023 Well adult (ICD-10 - Z00.00) 02/08/2024 Cough (ICD-10 - R05.9) 02/08/2024 Right hip pain (ICD-10 - M25.551) 06/07/2024 Well adult (ICD-10 - Z00.00) 06/07/2024 Chest pain (ICD-10 - R07.9) intermittant - young FH CAD - needs stress test 08/24/2024 Strep throat (ICD-10 - J02.0) You have been prescribed antibiotics for strep throat. Antibiotics may bother your stomach, so try taking them with a light meal (unless instructed otherwise by your pharmacist). It is important to take them until they are finished. You can use [id number] acetaminophen or ibuprofen if needed for pain. You can also use throat lozenges or gargle warm water to help with the sore throat. You are contagious until you have been on antibiotics for 24 hours. You should be extra vigilant about hand washing or using hand underground miner gel. You should follow up with your Primary Care Physician or return to clinic if not improving in the next 3-5 days. 09/02/2024 Pancreatitis, acute (ICD-10 - K85.90) 12/27/2023 Pure hypercholesterol emia, unspecified (ICD-10 - E78.00) 02/18/2024 Elevated liver enzymes (ICD-10 - R74.8) 03/29/2024 Right hip pain (ICD-10 - M25.551) 07/11/2024 Cardiac ischemia (ICD-10 - I25.9) 07/27/2024 Abnormal stress test (ICD-10 - R94.39) 09/01/2024 Strep throat (ICD-10 - J02.0) 09/06/2024 Pancreatic cyst (ICD-10 - K86.2) 02/08/2024 Occult blood in stools (ICD-10 - R19.5) Plan Of Treatment Pending Test Test Name Order Date XR Abdomen AP (1 view) (KUB) * 3 CT Chest w/o contrast 06/01/2023 Cologuard 11/19/2023 Cardiolyte Stress Test 07/11/2024 MRI Pancreas w/ + w/o contrast Treadmill Stress Test with Nuclear Imagi ng 06/07/2024 CA 19-9 09/02/2024 CBC AUTO DIFF 11/19/2023 GLYCOHEMOGLOBIN A1C 11/19/2023 LIPID PROFILE 11/19/2023 LIPID PROFILE 12/27/2023 LIVER PROFILE 02/18/2024 LIVER PROFILE 12/27/2023 PROF 14(COMP METB) 11/19/2023 THYROID PROFILE WITH TSH 11/19/2023 US ABD 09/02/2024 XR HIP RT 2 3V W PELVIS 02/08/2024 MRCP Abdomen w/o contrast 09/06/2024 Insurance Providers Payer Name Payer Address Payer Phone Subscriber Number Group Number Insured Name Patient Relationship to Insured Coverage Start Date Coverage End Date [employer] PPO PLUS LOCAL PLAN [address] [place] [phone] [id number] Juan Carlos Ogden Self - patient is the insured Medical (General) History Medical History History ICD Code Edema R60.9 DVT (deep venous thrombosis) I82.409 Ovarian cyst, left N83.202 Thyroid nodule E04.1 Allergic rhinitis J30.9 Asthma J45.909 MVP (mitral valve prolapse) I34.1 Surgical History Surgery Date(Month/Year) Laproscopic Gall Bladder Removal
--- OUTSIDE RECORDS SUMMARY | 2024-09-23 12:43 | XMS_ITS | Encounter Summary ---
Author Organization [facility] Address [address] [facility] [place] [address] Care Team Providers Care Cage Fighter Name Role Phone Sacha Monroy MD Primary Care Provider [phone] Encounter Details Date Type Department Care Team (Late st Contact Info) Description 06/12/2023 Clinisync Result Encounter [facility] External Department Unsolicited Noah Sotelo, DO [address] [place] [address] Social History Tobacco Use Types Packs/Day Years [...] 06/06/2025 9:00 AM EST Office Visit [facility] [address] [place] [id number] Noah Sotelo, DO [address] [place] [address] documented as of this encounter Procedures Procedure Name Priority Date/Time Associated Diagnosis Comments MM TOMOSYNTHESIS SCREENING BI 06/12/2023 11:17 AM EST documented in this encounter Results * MM TOMOSYNTHESIS SCREENING BI (06/12/2023 11:17 AM EST) Anatomical Region Laterality Modality Other 06/12/2023 11:1 7 AM EST Narrative 06/12/2023 11:19 AM EST [place] [id number] Mammography Report Signed Patient: IZABELLA LOU MR#: [id number] : 1965 Acct:[id number] Age/Sex: 57 / F ADM Date: 06/12/23 Loc: MAMMO Attending Dr: Noah Sotelo D.O. Ordering Physician: Noah Sotelo D.O. Results: Date of Service: 06/12/23 Follow Up: Procedure(s): MM tomosynthesis screening BI Accession Number(s): [id number] cc: Noah Sotelo D.O.; Sacha Monroy M.D. Patient Name: IZABELLA LOU MR#: [id number] : 1965 Exam Date: 06/12/2023 Ordering Doctor: DR Noah Sotelo . RADIOLOGY REPORT PROCEDURE: MM TOMOSYNTHESIS SCREENING BI COMPARISON: MG MAMM SCREEN 3D SUMI CAD, 05/09/2021. MG MAMM SCREEN SUMI W CAD, 03/31/2017. INDICATIONS: Screening Calculator Name NCI Breast Cancer Risk Assessment Tool 5 Year Breast Cancer Risk 1.70% Lifetime Breast Cancer Risk 9.10% Personal Breast Cancer No Personal Ovarian Cancer No Treatments None Family Cancers None LOCATION: [facility] BREAST COMPOSITION: Heterogeneously dense,which may obscure small masses. FINDINGS: DIAGNOSTIC CATEGORY 1--NEGATIVE. NO CHANGE FROM COMPARISON ASSESSMENT. Scattered benign-appearing calcifications are present. Scattered benign-appearing lymph nodes are present. RIGHT BREAST: No significant suspicious finding. LEFT BREAST: No significant suspicious finding. RECOMMENDATIONS: ROUTINE MAMMOGRAM AND CLINICAL EVALUATION IN 12 MONTHS. PLEASE NOTE: A NORMAL MAMMOGRAM DOES NOT EXCLUDE THE POSSIBILITY OF BREAST CANCER. A CLINICALLY SUSPICIOUS PALPABLE LUMP SHOULD BE BIOPSIED. Dictated by: Chaitanya Webster MD on 06/12/2023 at 11:16 Approved by: Chaitanya Webster MD on 06/12/2023 at 11:17 Dictated By: Chaitanya Webster M.D. Signed By: 06/12/23 1119 DD/ 1117 TD/TT: Drum Sander Offbearer: Procedure Note Radiology, Radiologist, - 06/12/2023 [place] [address] Mammography Report Signed Patient: IZABELLA LOU RMR#: [id number] : 1965Acct:[id number] Age/Sex: 57 / FADM Date: 06/12/23 Loc: MAMMO Attending Dr: Noah Sotelo D.O. Ordering Physician: Noah Sotelo D.O.Results: Date of Service: 06/12/23Follow Up: Procedure(s): MM tomosynthesis screening BI Accession Number(s): [id number] cc: Noah Sotelo D.O.; Sacha Monroy M.D. Patient Name: IZABELLA LOU MR#: [id number] : 1965 Exam Date: 06/12/2023 Ordering Doctor: DR Noah Sotelo . RADIOLOGY REPORT PROCEDURE: MM TOMOSYNTHESIS SCREENING BI COMPARISON: MG MAMM SCREEN 3D SUMI CAD, 05/09/2021. MG MAMM SCREEN BILW CAD, 03/31/2017. INDICATIONS: Screening Calculator Name NCI Breast Cancer Risk Assessment Tool 5 Year Breast Cancer Risk 1.70% Lifetime Breast Cancer Risk 9.10% Personal Breast Cancer No Personal Ovarian Cancer No Treatments None Family Cancers None LOCATION: [facility] BREAST COMPOSITION: Heterogeneously dense,which may obscure smallmasses. FINDINGS: DIAGNOSTIC CATEGORY 1--NEGATIVE. NO CHANGE FROM COMPARISON ASSESSMENT. Scattered benign-appearing calcifications are present. Scattered benign-appearing lymph nodes are present. RIGHT BREAST: No significant suspicious finding. LEFT BREAST: No significant suspicious finding. RECOMMENDATIONS: ROUTINE MAMMOGRAM AND CLINICAL EVALUATION IN 12 MONTHS. PLEASE NOTE: A NORMAL MAMMOGRAM DOES NOT EXCLUDE THE POSSIBILITY OFBREAST CANCER. A CLINICALLY SUSPICIOUS PALPABLE LUMP SHOULD BE BIOPSIED. Dictated by: Chaitanya Webster MD on 06/12/2023 at 11:16 Approved by: Chaitnaya Webster MD on 06/12/2023 at 11:17 Dictated By: Chaitanya Webster M.D. Signed By:06/12/23 1119 DD/ 1117 TD/TT: Drum Sander Offbearer: us Noah Deepak DO [facility] Final Result documented in this encounter Visit Diagnoses Not on filedocumented in this encounter Care Teams Cage Fighter Relationship Specialty Start Date End Date Sacha Monroy MD PCP - General Family Medicine 05/25/23 documented as of this encounter
--- OUTSIDE RECORDS SUMMARY | 2024-09-23 12:43 | XMS_ITS | Encounter Summary ---
Author Organization [facility] Address [address] [facility] [place] [address] Care Team Providers Care Churn Drill Operator Name Role Phone Sacha Monroy MD Primary Care Provider [phone] Encounter Details Date Type Department Care Team (Late st Contact Info) Description 05/23/2024 Orders Only [facility] [address] [place] [address] Martha Bello MA Social History Tobacco Use Types Packs/Day Years [...] 06/06/2025 9:00 AM EST Office Visit [facility] [address] [address] Noah Sotelo DO [address] [place] [address] [address] [place], [place] [id number] documented as of this encounter Procedures Procedure Name Priority Date/Time Associated Diagnosis Comments PAP SMEAR Routine 05/25/2023 12:00 AM EST documented in this encounter Results * Pap Smear (05/25/2023 12:00 AM EST) Swab Cervical swab / Unknown Noah Sotelo DO LAB CYTOLOGY ORDERABLES Final Re sult EXTERNAL LAB documented in this encounter Visit Diagnoses Not on filedocumented in this encounter Care Teams Churn Drill Operator Relationship Specialty Start Date End Date Sacha Monroy MD PCP - General Family Medicine 05/25/23 documented as of this encounter
[2024-09-23 13:03] LABS: Estimated GFR (African America >60 (>=60 mL/min/1.73m^2); Estimated GFR (Non-African Ame >60 (>=60 mL/min/1.73m^2)
== END 2024-09-23 12:41 | disposition home or self-care (01) ==
LOC: LAB 12:40
PROVIDERS: PCP Family Medicine; Visit Provider Family Medicine
DX: K86.2 Cyst of pancreas (principal)
CPT/HCPCS: 36415; 74183; 82565; A9575

== ENCOUNTER 2024-11-17 07:18 | Outpatient (OUT) | payer BC, SELFPAY ==
--- OUTSIDE RECORDS SUMMARY | 2024-11-17 07:24 | XMS_ITS | CCD ---
Author Organization [facility] CliniSyil Care Team Providers Care Biology Tutor Name Role Phone MD Ciarra Monroy Primary Care Provider [phone] MD Vishal Card Attending Provider KYAW, DR BRIONES Admitting Unavailable CARD, DR BRIONES Attending Unavailable TRACYY, DR LAFLEUR Primary Care Unavailable CARD, DR BRIONES Consulting Unavailable KARASIK, DR BARKER Admitting Unavailable KARASIK, DR BARKER Attending Unavailable IRVING, DR LAFLEUR Primary Care Unavailable KARELVIRAK, DR BARKER Consulting Unavailable KYAW, DR BRIONES Admitting Unavailable CARD, DR BRIONES Attending Unavailable TRACYY, DR LAFLEUR Primary Care Unavailable KYAW, DR BRIONES Consulting Unavailable MD Ciarra Monroy Primary Care Provider MD Anali Card Attending Provider Noah Sotelo Attending Provider Ciarra Monroy Primary Care Physician Ciarra Monroy Referring Unavailable Oj GONZALEZ Attending Unavailable Oj GONZALEZ Attending Unavailable Ciarra Monroy MD Primary Care Provider [phone] NOAH SOTELO Attending Unavailable Ciarra Monroy MD Primary Care Provider Ciarra Monroy MD Primary Care Provider Fly Conti DO Emergency Provider Fly Conti Admitting Unavailable Fly Conti Attending Unavailable Ciarra Monroy Primary Care Unavailable RAJEEV WONG Referring Unavailable CIARRA MONROY Primary Care Unavailable RAJEEV WONG Referring Unavailable CIARRA MONROY Primary Care Unavailable RAJEEV WONG Attending Unavailable CIARRA MONROY Primary Care Unavailable Allergies Allergy Classification Reported Allergen(s) Allergy Type Date of Onset Reaction(s) Facility (1 source) No Known Medication Allergies; Translations: [No Known Medication Allergies] Propensity to adverse reactions (disorder) [facility] Repository Medications Current Medications Medication Drug Class(es) Dates Sig (Normalized) Sig (Original) acetaminophen 325 mg / oxyCODONE hydrochloride 5 mg oral tablet (1 source) Opioid Agonist Start: 08-31-2024 take 1 tablet by mouth every six hours as needed for pain Oxycodone-Acetamin ophen (Percocet) 5-325 mg tablet Active 1 TAB PO Q6H as needed for pain 12 August 31, 2024 [id number] 200 actuat albuterol 0.09 mg/actuat metered dose inhaler (4 sources) beta2-Adrenergic Agonist Start: 05-21-2023 Ventolin HFA 108 (90 Base) MCG/ACT inhaler every 4 (four) hours 05/21/2023 Active aspirin 81 mg delayed release oral tablet (9 sources) Platelet Aggregation Inhibitor, Nonsteroidal Anti-inflammatory Drug Start: 09-26-2020 take 1 tablet by mouth once daily aspirin 81 mg EC tablet Take 1 tablet (81 mg) by mouth once daily. 02/15/2024 Active azithromycin 250 mg oral tablet (4 sources) [...] sodium 100 mg extended release oral tablet (8 sources) Nonsteroidal Anti-inflammatory Drug Start: 02-15-2024 take [...] MCG/ACT inhaler every 6 (six) hours Active latanoprost 0.05 mg/ml ophthalmic solution (3 sources) Prostaglandin Analog Start: 07-31-19 take 1 drop(s) into the eye(s) once daily at bedtime latanoprost (Xalatan) 0.005 % ophthalmic solution Administer 1 drop into both eyes once daily at bedtime. 07/30/2024 Active lisinopril 10 mg oral tablet (6 sources) Angiotensin Converting Enzyme Inhibitor Start: 05-31-19 End: 05-31-19 take 1 tablet by mouth once daily lisinopril 10 MG tablet Indications: Blood pressure elevated without history of HTN Take 1 tablet (10 mg) by mouth Daily 30 tablet 05/31/2024 05/31/2025 Active 24 hr metFORMIN hydrochloride 500 mg extended release oral tablet (6 sources) Biguanide Start: 05-31-19 End: 05-31-19 take 1 tablet by mouth every twenty-four hours at mealtime metFORMIN XR (Glucophage-XR) 500 MG 24 hr tablet Indications: Insulin resistance Take 1 tablet (500 mg) by mouth in the evening. Take with meals Do not crush, chew, or split. 30 tablet 05/31/2024 05/31/2025 Active take 1 tablet by sarabjit th once daily at mealtime metFORMIN XR 500 mg 24 hr tablet Take 1 tablet (500 mg) by mouth once daily in the evening. Take with meals. Active montelukast 10 mg oral tablet (4 [...] Active phentermine hydrochloride 37.5 mg oral tablet (10 sources) Sympathomimetic Amine Anorectic Start: 09-27-19 End: 09-27-19 take 1 tablet by mouth once daily Phentermine (Adipex-P) 37.5 mg tablet Active 37.5 MG PO Daily September 26, 2020 12:00am rosuvastatin calcium 5 mg oral tablet (2 sources) HMG-CoA Reductase Inhibitor Start: 08-06-19 take 1 tablet by mouth in the morning rosuvastatin (Crestor) 5 mg tablet Take 1 tablet (5 mg) by mouth early in the morning.. 08/05/2024 Active simvastatin 20 mg oral tablet (5 sources) HMG-CoA Reductase Inhibitor Start: 09-27-19 take 1 tablet by mouth once daily Simvastatin 20 mg Tablet Active 20 MG PO Daily September 26, 2020 12:00am terconazole 4 mg/ml vaginal cream (2 sources) Azole Antifungal Start: 05-31-19 End: 06-07-19 terconazole (Terazol 7) 0.4 % vaginal cream Indications: Skin yeast infection Insert 1 applicator into the vagina at bedtime for 7 days Apply to affected area daily 45 g 05/31/2024 06/07/2024 Active tiZANidine 4 mg oral tablet (3 sources) Central alpha-2 Adrenergic Agonist Start: 07-31-19 tiZANidine (Zanaflex) 4 mg tablet Take 1 tablet (4 mg) by mouth if needed. 07/30/2024 Active traZODone hydrochloride 50 mg oral tablet (13 sources) Serotonin Reuptake Inhibitor Start: 05-21-19 take 1 tablet by mouth at bedtime traZODone (Desyrel) 50 MG tablet Take 50 mg by mouth at bedtime 05/21/2023 Active Start: 09-26-2020 Trazodone 100 mg tablet Active 50 MG PO Bedtime September 26, 2020 12:00am Start: 09-26-2020 take 50 mg by mouth at bedtime Trazodone Active 50 MG PO Bedtime September 25, 2020 11:00pm Ventolin HFA 90 mcg/inh Aerosol-Adpt (1 source) Start: 10-14-2024 take 2 puff(s) by inhalation every four [...] Classification Problem Date Documented Da te Episodic/Chronic Asthma (4 sources) Asthma; Translations: [Unspecified asthma, uncomplicated] Onset: 08-10-2024 02-15-2024 Chronic Cardiac dysrhythmias (11 sources) Multiple premature ventricular complexes; Translations: [Ventricular premature depolarization] Onset: 08-10-2024 08-10-2024 Chronic Diabetes mellitus without complication (6 sources) Prediabetes; Translations: [Prediabetes] Onset: 08-10-2024 08-10-2024 Episodic Disorders of lipid metabolism (7 sources) Hypercholesterolemia ; Translations: [Hyperlipidemia] Onset: 08-10-2024 02-15-2024 Chronic Essential hypertension (6 sources) Essential hypertension; Translations: [Essential (primary) hypertension] Onset: 08-10-2024 08-10-2024 Chronic Heart valve disorders (1 source) Mitral valve prolapse 02-15-2024 Chronic Mycoses (2 sources) Candidiasis of skin; Translations: [Candidiasis of skin and nail] 05-31-2024 Episodic Nonspecific chest pain (1 source) Chest pain, unspecified; Translations: [Chest pain, unspecified] Onset: 08-31-2024 Episodic Osteoarthritis (4 sources) Unspecified osteoarthritis, unspecified site; Translations: [UNSPECIFIED OSTEOARTHRITIS UNS SITE] Onset: 06-06-2022 Chronic Other aftercare (1 source) Other cook vacuum kettle (current) drug therapy; Translations: [OTH BUSINESS ANALYTICS SPECIALIST CURRENT DRUG THERAPY] Onset: 06-08-2022 Episodic Other circulatory disease (2 sources) H/O: [...] Abnormal feces; Translations: [Other fecal abnormalities] Onset: 03-08-2024 Episodic Other gastrointestinal disorders (1 source) Occult blood in stools 02-15-2024 Episodic Other nutritional; endocrine; and metabolic disorders (5 sources) Body mass index 30+ - obesity; Translations: [Body mass index (BMI) 34.0-34.9, adult] Onset: 08-10-2024 03-08-2024 Chronic Other nutritional; endocrine; and metabolic disorders (1 source) Obesity caused by energy imbalance 02-15-2024 Chronic Other nutritional; endocrine; and metabolic disorders (2 sources) Insulin resistance; Translations: [Insulin resistance] 05-31-2024 Chronic Other nutritional; endocrine; and metabolic disorders (2 sources) Body mass index (BMI) 34.0-34.9, adult; Translations: [Body mass index (BMI) 34.0-34.9, adult] Onset: 08-10-2024 Chronic Other screening for suspected conditions (not mental disorders or infectious disease) (20 sources) Encounter for screening for malignant neoplasm of cervix; Translations: [Stool DNA-based colorectal cancer screening positive] Onset: 08-22-2021 Episodic Other upper respiratory disease (1 source) Allergic rhinitis 02-15-2024 Chronic Pancreatic disorders (not diabetes) (2 sources) Pancreatitis; Translations: [Acute pancreatitis without necrosis or infection, unspecified] Onset: 08-31-2024 08-31-2024 Episodic Phlebitis; thrombophlebitis and thromboembolism (9 sources) H/O: Deep vein thrombosis; Translations: [H/O: thrombosis] Onset: 08-10-2024 02-15-2024 Episodic Residual codes; unclassified (1 source) Insomnia 02-15-2024 Episodic Residual codes; unclassified (11 sources) FH: Myocardial infarction; Translations: [Family history of ischemic heart disease and other diseases of the circulatory system] Onset: 08-10-2024 08-10-2024 Episodic Residual codes; unclassified (4 sources) Family history of ischemic heart disease and other diseases of the circulatory system; Translations: [Family history of ischemic heart disease and other diseases of the circulatory system] Onset: 08-10-2024 Episodic Screening and history of mental health and substance abuse codes (6 sources) Ex-smoker; Translations: [Personal history of nicotine dependence] Onset: 08-10-2024 08-10-2024 Episodic Thyroid disorders (1 source) Thyroid nodule 02-15-2024 Chronic Past or Other Problems Problem Classification Problem Date Documented Date Episodic/Chronic Immunizations and screening for infectious disease (2 sources) Raised antibody titer; Translations: [Encounter for screening for human papillomavirus (HPV)] Onset: 08-23-2021 Episodic Unclassified (3 sources) Onset: 08-10-2024 08-10-2024 Results Test Name Value Interpretation Reference Range Facility TRANSTHORACIC ECHO (TTE) COM PLETEon 10-11-2024 TRANSTHORACIC ECHO (TTE) COMPLETE [address], [place] [address] TRANSTHORACIC ECHOCARDIOGRAM REPORT Patient Name: IZABELLA Morse Physician: [id number] Rajeev Wong MD, [facility] Study Date: 10/11/2024 Ordering Provider: [id number] RAJEEV WONG MRN/PID: [id number] Fellow: Nurse: Date of /Age: 2 1965 / 59 Disaster Recovery Manager: Shabnam boykin RD, RVT Gender Assigned at Additional Staff: : Height: 172.72 cm Admit Date: Weight: 101.60 kg Admission Status: Outpatient BSA / BMI: 2.14 m2 / 34.06 Department Location: [facility] kg/m2 [place] Blood Pressure: 120 /76 mmHg Study Type: TRANSTHORACIC ECHO (TTE) COMPLETE Diagnosis/ICD: Abnormal electrocardiogram [ECG] [EKG]-R94.31; Family history of ischemic heart disease and other diseases of the circulatory system-Z82.49; Ventricular premature depolarization-I49.3 Indication: HTN, Palpitations, Former Smoker CPT Codes: Echo Complete w Full Doppler-[id number] Study Detail: The following Echo studies were performed: 2D, M-Mode, Doppler and color flow. PHYSICIAN INTERPRETATION: Left Ventricle: The left ventricular systolic function is normal with a visually estimated ejection fraction of 60-65%. There are no regional wall motion abnormalities. The left ventricular cavity size is normal. There is mildly increased posterior left ventricular wall thickness. There is left ventricular concentric remodeling. Spectral Doppler shows a normal pattern of left ventricular diastolic filling. Sigmoid basal septum, normal variant. Left Atrium: The left atrial size is normal. Right Ventricle: The right ventricle is normal in size. There is normal right ventricular global systolic function. Right Atrium: The right atrial size is normal. Aortic Valve: The aortic valve is trileaflet. The aortic valve area by VTI is 3.53 cm??? with a peak velocity of 1.16 m/s. The peak and mean gradients are 5 mmHg and 3 mmHg, respectively, with a dimensionless index of 0.84. There is no evidence of aortic valve regurgitation. Mitral Valve: The mitral valve is normal in structure. The doppler estimated peak and mean diastolic gradients are 4 mmHg and 1 mmHg, respectively. There is no evidence of mitral valve regurgitation. The E Vmax is 0.86 m/s. Tricuspid Valve: The tricuspid valve is structurally normal. No evidence of tricuspid regurgitation. The Doppler estimated right ventricular systolic pressure (RVSP) is within normal limits at 23 mmHg. Pulmonic Valve: The pulmonic valve is structurally normal. There is no indication of pulmonic valve regurgitation. Pericardium: No pericardial effusion noted. Aorta: The aortic root is normal. Additional Comments: Normal echocardiogram. In comparison to the previous echocardiogram(s): No previous studies are available for comparison. CONCLUSIONS: 1. The left ventricular systolic function is normal with a visually estimated ejection fraction of 60-65%. 2. Normal echocardiogram. 3. Sigmoid basal septum, normal variant. 4. There is normal right ventricular global systolic function. 5. The Doppler estimated RVSP is within normal limits at 23 mmHg. 6. No previous studies are available for comparison. QUANTITATIVE DATA SUMMARY: 2D MEASUREMENTS: Normal Ranges: Ao Root s: 3.40 cm LAs: 3.63 cm (2.7-4.0cm) RVIDd: 3.52 cm (0.9-3.6cm) IVSd: 1.28 cm (0.6-1.1cm) LVPWd: 1.04 cm (0.6-1.1cm) LVIDd: 3.88 cm (3.9-5.9cm) LVIDs: 2.45 cm LV Mass Index: 69.9 g/m2 LVEDV Index: 39.60 ml/m2 LV % FS 36.7 % LEFT ATRIUM: Normal Ranges: LA Vol A4C: 61.7 ml (22+/-6mL/m2) LA Vol A2C: 72.0 ml LA Vol BP: 69.1 ml LA Vol Index A4C: 28.8ml/m2 LA Vol Index A2C: 33.6 ml/m2 LA Vol Index BP: 32.2 ml/m2 LA Vol A4C: 55.9 ml LA Vol A2C: 69.4 ml LA Vol Index BSA: 29.2 ml/m2 LV SYSTOLIC FUNCTION: Normal Ranges: EF-A4C View: 59 % (>=55%) EF-A2C View: 66 % EF-Biplane: 64 % EF-Visual: 63 % LV EF Reported: 63 % LV DIASTOLIC FUNCTION: Normal Ranges: MV Peak E: 0.86 m/s (0.7-1.2 m/s) MV Peak A: 0.71 m/s (0.42-0.7 m/s) E/A Ratio: 1.21 (1.0-2.2) MV e' 0.085 m/s (>8.0) MV lateral e' 0.09 m/s MV medial e' 0.08 m/s E/e' Ratio: 10.15 (<8.0) MITRAL VALVE: Normal Ranges: MV Vmax: 0.94 m/s (<=1.3m/s) MV peak P.6 mmHg (<5mmHg) MV mean P.3 mmHg (<48mmHg) MV VTI: 20.69 cm (10-13cm) MV DT: 199 msec (150-240msec) AORTIC VALVE: Normal Ranges: AoV Vmax: 1.16 m/s (<=1.7m/s) AoV Peak P.4 mmHg (<20mmHg) AoV Mean P.8 mmHg (1.7-11.5mmHg) LVOT Max Dominic: 0.97 m/s (<=1.1m/s) AoV VTI: 27.25 cm (18-25cm) LVOT VTI: 22.86 cm LVOT Diameter: 2.32 cm (1.8-2.4cm) AoV Area, VTI: 3.53 cm2 (2.5-5.5cm2) AoV Area,Vmax: 3.54 cm2 (2.5-4.5cm2) AoV Dimensionless Index: 0.84 RIGHT VENTRICLE: RV Basal 3.44 cm RV Mid 2.40 cm RV Major 4.9 cm RV s' 0.14 m/s TRICUSPID VALVE/RVSP: Normal Ranges: Peak TR Velocity: 2.23 m/s Est. RA Pressure: 3 mmH (more content not included)... Normal [facility] US Heart Transthoracicon Aortic Valve Area by Continuity of Peak Velocity 3.54 cm2 [facility] Work Phone: [phone] Aortic Valve Area by Continuity of VTI 3.53 cm2 [facility] Work Phone: [phone] AV mn grad 3 mmHg [facility] Work Phone: [phone] AV pk grad 5 mmHg [facility] Work Phone: [phone] AV pk dominic 1.16 m/s [facility] Work Phone: [phone] LA vol index A/L 32.2 ml/m2 [facility] Work Phone: [phone] LV A4C EF 59.4 [facility] Work Phone: [phone] LV Biplane EF 64 % [facility] Work Phone: [phone] LV EF 63 % [facility] Work Phone: [phone] LVIDd 3.88 cm [facility] Work Phone: [phone] LVOT diam 2.32 cm [facility] Work Phone: [phone] MV avg E/e' ratio 10.15 [facility] Work Phone: [phone] MV E/A ratio 1.21 [facility] Work Phone: [phone] RV free wall pk S' 14 cm/s [facility] Work Phone: RVSP 23 mmHg [facility] Work Phone: [facility] [address] [place] [address], [address], [place] [address] TRANSTHORACIC ECHOCARDIOGRAM REPORT Patient Name: IZABELLA OGDEN Reading Physician: [id number] Rajeev Wong MD, [facility] Study Date: 10/11/2024 Ordering Provider: [id number] RAJEEV WONG MRN/PID: [id number] Fellow: Nurse: Date of /Age: 2 1965 Disaster Recovery Manager: Shabnam boykin RDCS, RVT Gender Assigned at F Additional Staff: : Height: 172.72 cm Admit Date: Weight: 101.60 kg Admission Status: Outpatient BSA / BMI: 2.14 m2 / 34.06 Department Location: [facility] kg/m2 [place] Blood Pressure: 120 /76 mmHg Study Type: TRANSTHORACIC ECHO (TTE) COMPLETE Diagnosis/ICD: Abnormal electrocardiogram [ECG] [EKG]-R94.31; Family history of ischemic heart disease and other diseases of the circulatory system-Z82.49; Ventricular premature depolarization-I49.3 Indication: HTN, Palpitations, Former Smoker CPT Codes: Echo Complete w Full Doppler-[id number] Study Detail: The following Echo studies were performed: 2D, M-Mode, Doppler and color flow. PHYSICIAN INTERPRETATION: Left Ventricle: The left ventricular systolic function is normal with a visually estimated ejection fraction of 60-65%. There are no regional wall motion abnormalities. The left ventricular cavity size is normal. There is mildly increased posterior left ventricular wall thickness. There is left ventricular concentric remodeling. Spectral Doppler shows a normal pattern of left ventricular diastolic filling. Sigmoid basal septum, normal variant. Left Atrium: The left atrial size is normal. Right Ventricle: The right ventricle is normal in size. There is normal right ventricular global systolic function. Right Atrium: The right atrial size is normal. Aortic Valve: The aortic valve is trileaflet. The aortic valve area by VTI is 3.53 cm with a peak velocity of 1.16 m/s. The peak and mean gradients are 5 mmHg and 3 mmHg, respectively, with a dimensionless index of 0.84. There is no evidence of aortic valve regurgitation. Mitral Valve: The mitral valve is normal in structure. The doppler estimated peak and mean diastolic gradients are 4 mmHg and 1 mmHg, respectively. There is no evidence of mitral valve regurgitation. The E Vmax is 0.86 m/s. Tricuspid Valve: The tricuspid valve is structurally normal. No evidence of tricuspid regurgitation. The Doppler estimated right ventricular systolic pressure (RVSP) is within normal limits at 23 mmHg. Pulmonic Valve: The pulmonic valve is structurally normal. There is no indication of pulmonic valve regurgitation. Pericardium: No pericardial effusion noted. Aorta: The aortic root is normal. Additional Comments: Normal echocardiogram. In comparison to the previous echocardiogram(s): No previous studies are available for comparison. CONCLUSIONS: 1. The left ventricular systolic function is normal with a visually estimated ejection fraction of 60-65%. 2. Normal echocardiogram. 3. Sigmoid basal septum, normal variant. 4. There is normal right ventricular global systolic function. 5. The Doppler estimated RVSP is within normal limits at 23 mmHg. 6. No previous studies are available for comparison. QUANTITATIVE DATA SUMMARY: 2D MEASUREMENTS: Normal Ranges: Ao Root s: 3.40 cm LAs: 3.63 cm (2.7-4.0cm) RVIDd: 3.52 cm (0.9-3.6cm) IVSd: 1.28 cm (0.6-1.1cm) LVPWd: 1.04 cm (0.6-1.1cm) LVIDd: 3.88 cm (3.9-5.9cm) LVIDs: 2.45 cm LV Mass Index: 69.9 g/m2 LVEDV Index: 39.60 ml/m2 LV % FS 36.7 % LEFT ATRIUM: Normal Ranges: LA Vol A4C: 61.7 ml (22+/-6mL/m2) LA Vol A2C: 72.0 ml LA Vol BP: 69.1 ml LA Vol Index A4C: 28.8ml/m2 LA Vol Index A2C: 33.6 ml/m2 LA Vol Index BP: 32.2 ml/m2 LA Vol A4C: 55.9 ml LA Vol A2C: 69.4 ml LA Vol Index BSA: 29.2 ml/m2 LV SYSTOLIC FUNCTION: Normal Ranges: EF-A4C View: 59 % (>=55%) EF-A2C View: 66 % EF-Biplane: 64 % EF-Visual: 63 % LV EF Reported: 63 % LV DIASTOLIC FUNCTION: Normal Ranges: MV Peak E: 0.86 m/s (0.7-1.2 m/s) MV Peak A: 0.71 m/s (0.42-0.7 m/s) E/A Ratio: 1.21 (1.0-2.2) MV e' 0.085 m/s (>8.0) MV lateral e' 0.09 m/s MV medial e' 0. (more content not included)... Rajeev Moreno M D - 10/11/[address], [address] [address] TRANSTHORACIC ECHOCARDIOGRAM REPORT Patient Name: IZABELLA Morse Physician: [id number] Rajeev Wong MD, [facility] Study Date: 10/11/2024 Ordering Provider: [id number] RAJEEV WONG MRN/PID: [id number] Fellow: Nurse: Date of /Age: 2 1965 Disaster Recovery Manager: Shabnam boykin [email or web address] T Gender Assigned at F Additional Staff: : Height: 172.72 cm Admit Date: Weight: 101.60 kg Admission Status: Outpatient BSA / BMI: 2.14 m2 / 34.06 Department Location: [facility] kg/m2 [place] Blood Pressure: 120 /76 mmHg Study Type: TRANSTHORACIC ECHO (TTE) COMPLETE Diagnosis/ICD: Abnormal electrocardiogram [ECG] [EKG]-R94.31; Family history of ischemic heart disease and other diseases of the circulatory system-Z82.49; Ventricular premature depolarization-I49.3 Indication: HTN, Palpitations, Former Smoker CPT Codes: Echo Complete w Full Doppler-[id number] Study Detail: The following Echo studies were performed: 2D, M-Mode, Doppler and color flow. PHYSICIAN INTERPRETATION: Left Ventricle: The left ventricular systolic function is normal with a visually estimated ejection fraction of 60-65%. There are no regional wall motion abnormalities. The left ventricular cavity size is normal. There is mildly increased posterior left ventricular wall thickness. There is left ventricular concentric remodeling. Spectral Doppler shows a normal pattern of left ventricular diastolic filling. Sigmoid basal septum, normal variant. Left Atrium: The left atrial size is normal. Right Ventricle: The right ventricle is normal in size. There is normal right ventricular global systolic function. Right Atrium: The right atrial size is normal. Aortic Valve: The aortic valve is trileaflet. The aortic valve area by VTI is 3.53 cm with a peak velocity of 1.16 m/s. The peak and mean gradients are 5 mmHg and 3 mmHg, respectively, with a dimensionless index of 0.84. There is no evidence of aortic valve regurgitation. Mitral Valve: The mitral valve is normal in structure. The doppler estimated peak and mean diastolic gradients are 4 mmHg and 1 mmHg, respectively. There is no evidence of mitral valve regurgitation. The E Vmax is 0.86 m/s. Tricuspid Valve: The tricuspid valve is structurally normal. No evidence of tricuspid regurgitation. The Doppler estimated right ventricular systolic pressure (RVSP) is within normal limits at 23 mmHg. Pulmonic Valve: The pulmonic valve is structurally normal. There is no indication of pulmonic valve regurgitation. Pericardium: No pericardial effusion noted. Aorta: The aortic root is normal. Additional Comments: Normal echocardiogram. In comparison to the previous echocardiogram(s): No previous studies are available for comparison. CONCLUSIONS: 1. The left ventricular systolic function is normal with a visually estimated ejection fraction of 60-65%. 2. Normal echocardiogram. 3. Sigmoid basal septum, normal variant. 4. There is normal right ventricular global systolic function. 5. The Doppler estimated RVSP is within normal limits at 23 mmHg. 6. No previous studies are available for comparison. QUANTITATIVE DATA SUMMARY: 2D MEASUREMENTS: Normal Ranges: Ao Root s: 3.40 cm LAs: 3.63 cm (2.7-4.0cm) RVIDd: 3.52 cm (0.9-3.6cm) IVSd: 1.28 cm (0.6-1.1cm) LVPWd: 1.04 cm (0.6-1.1cm) LVIDd: 3.88 cm (3.9-5.9cm) LVIDs: 2.45 cm LV Mass Index: 69.9 g/m2 LVEDV Index: 39.60 ml/m2 LV % FS 36.7 % LEFT ATRIUM: Normal Ranges: LA Vol A4C: 61.7 ml (22+/-6mL/m2) LA Vol A2C: 72.0 ml LA Vol BP: 69.1 ml LA Vol Index A4C: 28.8ml/m2 LA Vol Index A2C: 33.6 ml/m2 LA Vol Index BP: 32.2 ml/m2 LA Vol A4C: 55.9 ml LA Vol A2C: 69.4 ml LA Vol Index BSA: 29.2 ml/m2 LV SYSTOLIC FUNCTION: Normal Ranges: EF-A4C View: 59 % (>=55%) EF-A2C View: 66 % EF-Biplane: 64 % EF-Visual: 63 % LV EF Reported: 63 % LV DIASTOLIC FUNCTION: Normal Ranges: MV Peak E: 0.86 m/s (0.7-1.2 m/s) MV Peak A: 0.71 m/s (0.42-0.7 m/s) E/A Ratio: 1.21 (1.0-2.2) MV e' 0.085 m/s (>8.0) MV lateral e' 0.09 m/s MV medial e' 0.08 m/s E/e' Ratio: 10.15 (<8.0) MITRAL VALVE: Normal Ranges: MV Vmax: 0.94 m/s (<=1.3m/s) MV peak P.6 mmHg (<5mmHg) MV mean P.3 mmHg (<48mmHg) MV VTI: 20.69 cm (10-13cm) MV DT: 199 msec (150-240msec) AORTIC VALVE: Normal Ranges: AoV Vmax: 1.16 m/s (<=1.7m/s) AoV Peak P.4 mmHg (<20mmHg) AoV Mean P.8 mmHg (1.7-11.5mmHg) LVOT Max Dominic: 0.97 m/s (<=1.1m/s) AoV VTI: 27.25 cm (18-25cm) LVOT VTI: 22.86 cm LVOT Diameter: 2.32 cm (1.8-2.4cm) AoV Area, VTI: 3.53 cm2 (2.5-5.5cm2) AoV Area,Vmax: 3.54 cm2 (2.5-4.5cm2) AoV Dimensionless Index: 0.84 RIGHT VENTRICLE: RV Basal 3.44 cm RV Mid 2.40 cm RV Major 4.9 cm (more content not included)... [facility] Work Phone: [facility] Work Phone: CT CARDIAC SCORING WO IV CON TRASTon 10-06-2024 CT CARDIAC SCORING WO IV CONTRAST Interpreted By: Balta Calderon, ADDENDUM: NON-CARDIOVASCULAR FINDINGS INCLUDED LUNGS, AIRWAYS AND PLEURA Endotracheal / endobronchial lesion: Negative Nodule: Negative Airspace disease: Negative Pleural effusion: Negative Pneumothorax: Negative Other: No acute or contributory unanticipated findings INCLUDED NON-CARDIOVASCULAR YARIEL AND MEDIASTINUM Adenopathy: Negative Included esophagus: Unremarkable Other: No acute or contributory unanticipated findings INCLUDED BONES: No acute skeletal findings, noting less sensitivity and specificity without dedicated sagittal and coronal reformatted series. INCLUDED CHEST WALL No acute or contributory unanticipated findings INCLUDED UPPER ABDOMEN No acute or contributory unanticipated findings ------- NON-CARDIOVASCULAR IMPRESSION NO ACUTE OR CONTRIBUTORY UNEXPECTED FINDINGS OF THE INCLUDED NON-CARDIOVASCULAR STRUCTURES NOTE THIS ADDENDUM IS SOLELY FOR INTERPRETATION OF ANATOMY OUTSIDE THE CARDIOVASCULAR SYSTEM. INTERPRETATION OF AND REPORTING OF THE CARDIOVASCULAR STRUCTURES ARE THE SOLE RESPONSIBILITY OF THE INSURANCE PRODUCER SUBMITTING THE ORIGINAL REPORT (NOT THIS ADDENDUM) Signed by: Balta Calderon 10/07/2024 11:16 AM -------- ORIGINAL REPORT -------- Dictation workstation: [id number] Interpreted By: Oj Coreas, STUDY: CT CARDIAC SCORING WO IV CONTRAST; 10/06/2024 7:54 pm INDICATION: Signs/Symptoms:family hx htn hyperlipidemia diabetes. COMPARISON: None. ACCESSION NUMBER(S): [id number] ORDERING CLINICIAN: RAJEEV WONG TECHNIQUE: Using prospective ECG gating, CT scan of the coronary arteries was performed without intravenous contrast. Coronary calcium scoring was performed according to the method of Agatston. CT Dose-Length Product (DLP): 72.6 mGy*cm CT Dose Reduction Employed: Yes, prospective gating, iterative reconstruction. FINDINGS: The score and distribution of calcium in the coronary arteries is as follows: LM 0 LAD 0 LCx 0 RCA 0 Total 0 The visualized mid/lower ascending thoracic aorta measures 3.5 cm in diameter. The heart is normal in size. No pericardial effusion is present. IMPRESSION: 1. Coronary artery calcium score of 0*. *Coronary artery calcium scoring may be helpful in predicting the risk for future coronary heart disease events. According to the [place] [employer] Clinical Expert Consensus Task Force, such testing provides important prognostic information in patients with more than one coronary heart disease risk factor. The coronary artery calcium score correlates with the annual risk of a non-fatal myocardial infarction or coronary heart disease . Coronary artery score Annual Risk 0-99 0.4% 100-399 1.3% >400 2.4% These three breakpoints correspond to lower, intermediate and high risk states for future coronary events. Such information should be used, along with appropriate clinical judgment, to make decisions regarding the intensity of risk factor management strategies to treat blood lipids and to modify other non-lipid coronary risk factors. Reference: Sylvie P et al. Circulation. 2007; 115:402-426 Reading Hooker Laster: Dr. Oj Coreas, Date: 10/07/2024 10:46 am Signed by: Oj Coreas 10/07/2024 10:46 AM Dictation workstation: [id number] [facility] Alanine aminotransferase [En zymatic activity/volume] in Serum or PlasmaOrdered By: Fly Conti on 08-31-2024 ALT [Catalytic activity/Vol] Alanine aminotransferase [Enzymatic activity/volume] in Serum or Plasma High 7-52 [facility] Albumin [Mass/volume] in Ser um or Plasma by Bromocresol green (BCG) dye binding methoOrdered By: Fly Cnoti on 08-31-2024 Albumin BCG dye [Mass/Vol] Albumin [Mass/volume] in Serum or Plasma by Bromocresol green (BCG) dye binding metho 3.5-5.7 [facility] Alkaline phosphatase [Enzyma tic activity/volume] in Serum or PlasmaOrdered By: Fly Conti on 08-31-2024 ALP [Catalytic activity/Vol] Alkaline phosphatase [Enzymatic activity/volume] in Serum or Plasma High 34-104 [facility] Appearance of UrineOrdered B y: Fly Conti on 08-31-2024 Appearance (U) Urine appearance Clear [facility] Aspartate aminotransferase [ Enzymatic activity/volume] in Serum or PlasmaOrdered By: Fly Conti on 08-31-2024 AST [Catalytic activity/Vol] Aspartate aminotransferase [Enzymatic activity/volume] in Serum or Plasma High 13-39 [facility] B-Type Natriuretic Peptideon 08-31-2024 Natriuretic peptide B (Bld) [Mass/Vol] 16.0 pg/mL Normal 5-100 [facility] Comment on above: Result Comment: PERF ORMED BY: [place] [address] PATHOLOGIST DISPENSARY ATTENDANT BARBRAA WOLFE M.D. Performed By: #### L IPASE, HS TROP, TRIG, HEPATIC #### [place] [address] [place] Bacteria [Presence] in Urine by AutomatedOrdered By: Fly Conti on 08-31-2024 Bacteria Auto Ql (U) Bacteria [Presence] in Urine by Automated None Seen [facility] Basic Metabolic Panelon 08-04 Anion gap [Moles/Vol] 11.0 mmol/L Normal 6.0-15.0 [facility] Comment on above: Performed By: #### L IPASE, HS TROP, TRIG, HEPATIC #### [place] [address] [place] Calcium [Mass/Vol] 9.2 mg/dL Normal 8.6-10.3 [facility] Comment on above: Performed By: #### L IPASE, HS TROP, TRIG, HEPATIC #### [facility] [address] [place] [address] [place] Chloride [Moles/Vol] 102 mmol/L Normal 98-107 [facility] Comment on above: Performed By: #### L IPASE, HS TROP, TRIG, HEPATIC #### [facility] [address] [place] [address] [place] CO2 [Moles/Vol] 23.4 mmol/L Normal 21.0-31.0 [facility] Comment on above: Performed By: #### L IPASE, HS TROP, TRIG, HEPATIC #### [address] [place] [address] [place] Creatinine [Mass/Vol] 0.90 mg/dL Normal 0.60-1.20 [facility] Comment on above: Performed By: #### L IPASE, HS TROP, TRIG, HEPATIC #### [address] Creatinine Clr Calc Pharmacy 83.98 Normal [facility] Comment on above: Result Comment: PERF ORMED BY: [place] [address] PATHOLOGIST DISPENSARY ATTENDANT BARBARA WOLFE M.D. Performed By: #### L IPASE, HS TROP, TRIG, HEPATIC #### [address] GFR/1.73 sq M.predicted MDRD (S/P/Bld) [Vol rate/Area] mL/min/{1.73_m2} Normal [facility] Comment on above: Performed By: #### L IPASE, HS TROP, TRIG, HEPATIC #### [address] Glucose [Mass/Vol] 112 mg/dL High 70-100 [facility] Comment on above: Result Comment: [employer] Glucose Reference Range is dependent on time and content of last meal. Glucose of more than 200 mg/dL in a nonstressed, ambulatory subject supports the diagnosis of Diabetes Mellitus. ADA recommended reference range Performed By: #### L IPASE, HS TROP, TRIG, HEPATIC #### [address] Potassium [Moles/Vol] 4.4 mmol/L Normal 3.5-5.1 [facility] Comment on above: Performed By: #### L IPASE, HS TROP, TRIG, HEPATIC #### [place] [address] [place] Sodium [Moles/Vol] 132 mmol/L Low 136-145 [facility] Comment on above: Performed By: #### L IPASE, HS TROP, TRIG, HEPATIC #### [place] [address] [place] Urea nitrogen [Mass/Vol] 32 mg/dL High 7-25 [facility] Comment on above: Performed By: #### L IPASE, HS TROP, TRIG, HEPATIC #### [address] Basophils Auto (Bld) [#/Vol] Ordered By: Fly Conti on 08-31-2024 Basophils (Bld) [#/Vol] Automated basophil count 0.0-0.2 [facility] Basophils/100 WBC Auto (Bld) Ordered By: Fly Conti on 08-31-2024 Basophils/100 WBC (Bld) Automated basophil % . [facility] Bilirubin Test strip Ql (U)O rdered By: Fly Conti on 08-31-2024 Bilirubin Ql (U) Bilirubin.total [Presence] in Urine by Test strip Negative [facility] Bilirubin.direct [Mass/volum e] in Serum or PlasmaOrdered By: Fly Conti on 08-31-2024 Bilirubin.direct [Mass/Vol] Bilirubin.direct [Mass/volume] in Serum or Plasma 0.03-0.18 [facility] Bilirubin.total [Mass/volume ] in Serum or PlasmaOrdered By: Fly Conti on 08-31-2024 Bilirubin [Mass/Vol] Bilirubin.total [Mass/volume] in Serum or Plasma 0.3-1.0 [facility] CT angio chest PE protocolon 08-31-2024 CT angio chest PE protocol [facility] [place] [address] CT Scan Report Signed Patient: Izabella Ogden MR#: [id number] : 1965 Acct:[id number] Age/Sex: 59 / F ADM Date: 08/31/24 [...] Ferrer M.D. 08/31/2024 6:05 PM Dictation Location: [place] [address] Transcribed By: SORIN 08/31/241804 Dictated By: Germán Ferrer MD 08/31/241800 Signed By: 08/31/241804 Normal [facility] Calcium [Mass/volume] in Ser um or PlasmaOrdered By: Fly Conti on 08-31-2024 Calcium [Mass/Vol] Calcium [Mass/volume ] in Serum or Plasma 8.6-10.3 [facility] Carbon dioxide, total [Moles /volume] in Serum or PlasmaOrdered By: Fly Conti on 08-31-2024 CO2 [Moles/Vol] Carbon dioxide, tota l [Moles/volume] in Serum or Plasma 21.0-31.0 [facility] Chloride [Moles/volume] in S tex or PlasmaOrdered By: Fly Conti on 08-31-2024 Chloride [Moles/Vol] Chloride [Moles/vol ume] in Serum or Plasma 98-107 [facility] Color Auto (U)Ordered By: Clovis Conti on 08-31-2024 Color (U) Color of Urine by Auto Yellow Fi [facility] Complete Blood Count Auto Di ffon 08-31-2024 Basophils (Bld) [#/Vol] 0.0 10*3/uL Normal 0.0-0.2 [facility] Comment on above: Result Comment: PERF ORMED BY: [place] [address] PATHOLOGIST DISPENSARY ATTENDANT BARBARA WOLFE M.D. Performed By: #### P T, BMP, BNP, CBC, DDIMER, CK, HS TROP #### [address] Basophils/100 WBC (Bld) 0.3 % Normal . [facility] Comment on above: Performed By: #### P T, BMP, BNP, CBC, DDIMER, CK, HS TROP #### [address] Eosinophils (Bld) [#/Vol] 0.2 10*3/uL Normal 0.0-0.45 [facility] Comment on above: Performed By: #### P T, BMP, BNP, CBC, DDIMER, CK, HS TROP #### [address] Eosinophils/100 WBC (Bld) 2.2 % Normal . [facility] Comment on above: Performed By: #### P T, BMP, BNP, CBC, DDIMER, CK, HS TROP #### [address] Erythrocyte distribution width (RBC) [Ratio] 14.2 % Normal 11.9-15.3 [facility] Comment on above: Performed By: #### P T, BMP, BNP, CBC, DDIMER, CK, HS TROP #### [address] Hematocrit (Bld) [Volume fraction] 39.8 % Normal 34.0-46.4 [facility] Comment on above: Performed By: #### P T, BMP, BNP, CBC, DDIMER, CK, HS TROP #### [address] Hemoglobin (Bld) [Mass/Vol] 13.8 g/dL Normal 11.8-15.4 [facility] Comment on above: Performed By: #### P T, BMP, BNP, CBC, DDIMER, CK, HS TROP #### [address] Lymphocytes (Bld) [#/Vol] 1.3 10*3/uL Normal 1.00-4.8 [facility] Comment on above: Performed By: #### P T, BMP, BNP, CBC, DDIMER, CK, HS TROP #### [address] Lymphocytes/100 WBC (Bld) 15.7 % Normal . [facility] Comment on above: Performed By: #### P T, BMP, BNP, CBC, DDIMER, CK, HS TROP #### [address] MCH (RBC) [Entitic mass] 30.7 pg Normal 24.7-34.3 [facility] Comment on above: Performed By: #### P T, BMP, BNP, CBC, DDIMER, CK, HS TROP #### [address] MCV (RBC) [Entitic vol] 89.0 fL Normal 80-100 [facility] Comment on above: Performed By: #### P T, BMP, BNP, CBC, DDIMER, CK, HS TROP #### [address] Mean Corpuscular HGB Conc 34.5 g/dL Normal 32.0-35.0 [facility] Comment on above: Performed By: #### P T, BMP, BNP, CBC, DDIMER, CK, HS TROP #### [address] Monocytes (Bld) [#/Vol] 0.5 10*3/uL Normal 0.0-0.8 [facility] Comment on above: Performed By: #### P T, BMP, BNP, CBC, DDIMER, CK, HS TROP #### [address] Monocytes/100 WBC (Bld) 21.90 % High 0.00-20.00 [facility] Comment on above: Result Comment: For adults in ED, MDW > 20.0 may be associated with a higher risk of sepsis during the first 12 hrs of hospital admission Performed By: #### P T, BMP, BNP, CBC, DDIMER, CK, HS TROP #### [address] Monocytes/100 WBC (Bld) 5.9 % Normal . [facility] Comment on above: Performed By: #### P T, BMP, BNP, CBC, DDIMER, CK, HS TROP #### [address] Neutrophils (Bld) [#/Vol] 6.1 10*3/uL Normal 1.8-7.7 [facility] Comment on above: Performed By: #### P T, BMP, BNP, CBC, DDIMER, CK, HS TROP #### [address] Neutrophils/100 WBC (Bld) 75.9 % Normal . [facility] Comment on above: Performed By: #### P T, BMP, BNP, CBC, DDIMER, CK, HS TROP #### [address] NRBC% 0.0 /100{WBC} Normal 0-0.5 [facility] Comment on above: Performed By: #### P T, BMP, BNP, CBC, DDIMER, CK, HS TROP #### [address] Platelet mean volume (Bld) [Entitic vol] 9.0 fL Normal 6.3-10.7 [facility] Comment on above: Performed By: #### P T, BMP, BNP, CBC, DDIMER, CK, HS TROP #### [facility] [address] Platelets (Bld) [#/Vol] 229 10*3/uL Normal 150-450 [facility] Comment on above: Performed By: #### P T, BMP, BNP, CBC, DDIMER, CK, HS TROP #### [facility] [address] RBC (Bld) [#/Vol] 4.48 10*6/uL Normal 3.60-5.00 [facility] Comment on above: Performed By: #### P T, BMP, BNP, CBC, DDIMER, CK, HS TROP #### [address] WBC (Bld) [#/Vol] 8.0 10*3/uL Normal 3.8-11.6 [facility] Comment on above: Performed By: #### P T, BMP, BNP, CBC, DDIMER, CK, HS TROP #### [address] Creatine Kinaseon 08-31-2024 CK [Catalytic activity/Vol] 92 U/L Normal 30- [facility] Comment on above: Performed By: #### L IPASE, HS TROP, TRIG, HEPATIC #### [address] Creatine kinase [Enzymatic a ctivity/volume] in Serum or PlasmaOrdered By: Fly Conti on 08-31-2024 CK [Catalytic activity/Vol] Creatine kinase [Enzymatic activity/volume] in Serum or Plasma - [facility] Creatinine [Mass/volume] in Serum or PlasmaOrdered By: Fly Conti on 08-31-2024 Creatinine [Mass/Vol] Creatinine [Mass/v olume] in Serum or Plasma 0.60-1.20 [facility] D-Dimer High Sensitivityon 0 08-31-2024 D-Dimer High Sensitivity 1008 ng/mL High 0-243 [facility] Comment on above: Result Comment: The reference range for D-dimer is <243 ng/mL D-dimer [...] coagulation studies. Please contact the laboratory at [phone] for redraw instructions. PERFORMED BY: [place] [address] PATHOLOGIST DISPENSARY ATTENDANT BARBARA WOLFE M.D. Performed By: #### L IPASE, HS TROP, TRIG, HEPATIC #### [place] [address] [place] Dipstick and Microscopicon 0 08-31-2024 Appearance (U) Clear Normal Clear [facility] Comment on above: Order Comment: Name Collection Type:: Clean-Voided Midstream Performed By: #### A DDONUAPLUS #### [place] [address] [place] Bacteria,Urine None Seen Normal None Seen [facility] Comment on above: Order Comment: Name Collection Type:: Clean-Voided Midstream Performed By: #### A DDONUAPLUS #### [place] [address] [place] Bilirubin,Urine Negative Normal Negative [facility] Comment on above: Order Comment: Name Collection Type:: Clean-Voided Midstream Performed By: #### A DDONUAPLUS #### [place] [address] [place] Color (U) Colorless Normal Yellow [facility] Comment on above: Order Comment: Name Collection Type:: Clean-Voided Midstream Performed By: #### A DDONUAPLUS #### [place] [address] [place] Glucose Ql (U) Normal Normal Normal [facility] Comment on above: Order Comment: Name Collection Type:: Clean-Voided Midstream Performed By: #### A DDONUAPLUS #### [address] Hyaline Casts,Urine None Normal 0-8 [facility] Comment on above: Order Comment: Name Collection Type:: Clean-Voided Midstream Result Comment: PERF ORMED BY: [place] [address] PATHOLOGIST DISPENSARY ATTENDANT BARBARA WLOFE M.D. Performed By: #### A DDONUAPLUS #### [address] Ketones Ql (U) Negative Normal Negative [facility] Comment on above: Order Comment: Name Collection Type:: Clean-Voided Midstream Performed By: #### A DDONUAPLUS #### [address] Leukocyte esterase Test strip Ql (U) 3+ High Negative [facility] Comment on above: Order Comment: Name Collection Type:: Clean-Voided Midstream Performed By: #### A DDONUAPLUS #### [place] [address] [place] Nitrite,Urine Negative Normal Negative [facility] Comment on above: Order Comment: Name Collection Type:: Clean-Voided Midstream Performed By: #### A DDONUAPLUS #### [place] [address] [place] Occult Blood,Urine Negative Normal Negative [facility] Comment on above: Order Comment: Name Collection Type:: Clean-Voided Midstream Result Comment: PERF ORMED BY: [place] [address] PATHOLOGIST DISPENSARY ATTENDANT BARBARA WOLFE M.D. Performed By: #### A DDONUAPLUS #### [address] pH (U) 6.5 [pH] Normal 5.0-9.0 [facility] Comment on above: Order Comment: Name Collection Type:: Clean-Voided Midstream Performed By: #### A DDONUAPLUS #### [place] [address] [place] Protein,Urine Negative Normal Negative [facility] Comment on above: Order Comment: Name Collection Type:: Clean-Voided Midstream Performed By: #### A DDONUAPLUS #### [place] [address] [place] RBC,Urine 1-2 Normal 0-4 [facility] Comment on above: Order Comment: Name Collection Type:: Clean-Voided Midstream Performed By: #### A DDONUAPLUS #### [place] [address] [place] Specificy [place],Urine 1.029 Normal 1.00 1-1.03 0 [facility] Comment on above: Order Comment: Name Collection Type:: Clean-Voided Midstream Performed By: #### A DDONUAPLUS #### [address] Squamous Epithelial Cell,Urine 1-2 Normal 0-2 [facility] Comment on above: Order Comment: Name Collection Type:: Clean-Voided Midstream Performed By: #### A DDONUAPLUS #### [place] [address] [place] Urobilinogen,Urine Normal Normal Normal [facility] Comment on above: Order Comment: Name Collection Type:: Clean-Voided Midstream Performed By: #### A DDONUAPLUS #### [place] [address] [place] WBC,Urine 3-4 Normal 0-4 [facility] Comment on above: Order Comment: Name Collection Type:: Clean-Voided Midstream Performed By: #### A DDONUAPLUS #### [address] ECG 12 lead ECGon 08-31-2024 ECG 12 lead ECG [facility] [place] [address] [place] [address] Electrocardiograph Report Signed Patient: Izabella Ogden MR#: [id number] : 1965 Acct:[id number] Age/Sex: 59 / F ADM Date: 08/31/24 Loc: ER Room: Type: [facility] ER Attending Dr: Ordering Provider: Fly Conti [...] voltage QRS Confirmed by Fly CONTI DO ([id number]) on 08/31/2024 8:35:29 PM Referred By: Electronically Signed By: Fly CONTI DO Transcribed By: MUS Signed By Fly Conti DO 0 08/31/242034 Normal [facility] Eosinophils Auto (Bld) [#/Vo l]Ordered By: Fly Conti on 08-31-2024 Eosinophils (Bld) [#/Vol] Automated eosinophil count 0.0-0.45 [facility] Eosinophils/100 WBC Auto (Bl d)Ordered By: Fly Conti on 08-31-2024 Eosinophils/100 WBC (Bld) Automated eosinophil % . [facility] Epithelial cells.squamous [# /area] in Urine sediment by Automated countOrdered By: Fly Conti on 08-31-2024 Epithelial cells.squamous Auto (Urine sed) [#/Area] Epithelial cells.squamous [#/area] in Urine sediment by Automated count 0-2 [facility] Erythrocyte distribution wid th Auto (RBC) [Ratio]Ordered By: Fly Conti on 08-31-2024 Erythrocyte distribution width (RBC) [Ratio] Erythrocyte distribution width [Ratio] by Automated count 11.9-15.3 [facility] Erythrocytes [#/area] in Uri ne sediment by Automated countOrdered By: Fly Conti on 08-31-2024 RBC Auto (Urine sed) [#/Area] Erythrocytes [#/area] in Urine sediment by Automated count 0-4 [facility] Fibrin D-dimer [Presence] in Platelet poor plasma by Latex agglutinationOrdered By: Fly Conti on 08-31-2024 Fibrin D-dimer LA Ql (PPP) Fibrin D-dimer [Presence] in Platelet poor plasma by Latex agglutination High 0-243 [facility] Comment on above: The reference range for D-dimer is <243 ng/mL D-dimer units.D-dimer results must be used in conjunction with a clinicalpretest probability (PTP) assessment model for deep veinthrombosis (DVT) and pulmonary embolism (PE). Results <230ng/mL d-dimer units can be used as a negative predictor inpatients with low or moderate probability for DVT/PE.Results above the exclusion threshold of 230 ng/ml D-dimerunits for DVT/PE may indicate the need for furtherdiagnostic testing.D-Dimer can be increased in hospitalized patients due toco-morbid conditions.A hematocrit value greater than 55% may lead to inaccurate results in coagulation testing. Patients having hematocrit values >55% require a special collection tube for coagulation studies. Please contact the laboratory at [phone] for redraw instructions. Globulin Calc (S) [Mass/Vol] Ordered By: Fly Conti on 08-31-2024 Globulin (S) [Mass/Vol] Serum globulin measurement by calculation (mass/volume) [facility] Glucose [Mass/volume] in Ser um or PlasmaOrdered By: Fly Conti on 08-31-2024 Glucose [Mass/Vol] Glucose [Mass/volume ] in Serum or Plasma High 70-100 [facility] Comment on above: ADA recommended refe rence rangeRandom Glucose Reference Range is dependent on time and content of last meal. Glucose of more than 200 mg/dL in a nonstressed, ambulatory subject supports the diagnosis of Diabetes Mellitus. Glucose [Mass/volume] in Uri ne by Test stripOrdered By: Fly Conti on 08-31-2024 Glucose Test strip (U) [Mass/Vol] Glucose [Mass/volume] in Urine by Test strip Normal [facility] Hematocrit Auto (Bld) [Volum e fraction]Ordered By: Fly Conti on 08-31-2024 Hematocrit (Bld) [Volume fraction] Hematocrit [Volume Fraction] of Blood by Automated count 34.0-46.4 [facility] Hemoglobin Test strip Ql (U) Ordered By: Fly Conti on 08-31-2024 Hemoglobin Ql (U) Hemoglobin [Presence ] in Urine by Test strip Negative [facility] Hemoglobin [Mass/volume] in BloodOrdered By: Fly Conti on 08-31-2024 Hemoglobin (Bld) [Mass/Vol] Hemoglobin [Mass/volume] in Blood 11.8-15.4 [facility] Hepatic Panelon 08-31-2024 Albumin [Mass/Vol] 4.1 g/dL Normal 3.5-5.7 [facility] Comment on above: Performed By: #### L IPASE, HS TROP, TRIG, HEPATIC #### [facility] [address] Albumin/Globulin [Mass ratio] 1.9 {ratio} Normal [facility] Comment on above: Performed By: #### L IPASE, HS TROP, TRIG, HEPATIC #### [facility] [address] ALP [Catalytic activity/Vol] 150 U/L High 34-104 [facility] Comment on above: Performed By: #### L IPASE, HS TROP, TRIG, HEPATIC #### [facility] [address] [place] [address] [place] ALT [Catalytic activity/Vol] 216 U/L High 7-52 [facility] Comment on above: Performed By: #### L IPASE, HS TROP, TRIG, HEPATIC #### [facility] [address] [place] [address] [place] AST [Catalytic activity/Vol] 228 U/L High 13-39 [facility] Comment on above: Performed By: #### L IPASE, HS TROP, TRIG, HEPATIC #### [facility] [address] [place] [address] [place] Bilirubin [Mass/Vol] 0.5 mg/dL Normal 0.3-1.0 [facility] Comment on above: Performed By: #### L IPASE, HS TROP, TRIG, HEPATIC #### [facility] [address] [place] [address] [place] Bilirubin,Indirect 0.4 mg/dL Normal [facility] Comment on above: Performed By: #### L IPASE, HS TROP, TRIG, HEPATIC #### [facility] [address] Bilirubin.indirect [Mass/Vol] 0.10 mg/dL Normal 0.03-0.18 [facility] Comment on above: Performed By: #### L IPASE, HS TROP, TRIG, HEPATIC #### [facility] [address] Globulin (S) [Mass/Vol] 2.2 g/dL Normal T [facility] Comment on above: Performed By: #### L IPASE, HS TROP, TRIG, HEPATIC #### [facility] [address] [place] [address] Protein [Mass/Vol] 6.3 g/dL Low 6.4-8.9 [facility] Comment on above: Performed By: #### L IPASE, HS TROP, TRIG, HEPATIC #### [facility] [address] [place] [address] Hepatitis Acute Panelon 04-3 HBsAg Screen Negative Normal Negative [facility] Comment on above: Performed By: #### H EPACUTE #### [facility] , Hepatitis A Antibody IgM Negative Normal Negative [facility] Comment on above: Result Comment: A ne gative anti-HAV IgM result suggests no recent or current HAV infection. Performed By: #### H EPACUTE #### [facility] , Hepatitis B Core Antibody IgM Negative Normal Negative [facility] Comment on above: Performed By: #### H EPACUTE #### [facility] , Hepatitis C Virus Antibody Non-Reactive Normal Non Reactive [facility] Comment on above: Performed By: #### H EPACUTE #### [facility] , Interpretation Hepatitis C Comment Normal . [facility] Comment on above: Result Comment: Not infected with HCV unless early or acute infection is suspected (which may be delayed in an immunocompromised individual), or other evidence exists to indicate HCV infection. Performed at: [facility] [address] [id number] Lead Enterprise Architect: Prakash Ballesteros PhD, Phone: [phone] PERFORMED BY: [facility] [address] [place] [id number] PATHOLOGIST DISPENSARY ATTENDANT BARBARA WOLFE M.D. Performed By: #### H EPACUTE #### [facility] , Hyaline casts [#/area] in Ur ine sediment by Automated countOrdered By: Fly Conti on 08-31-2024 Hyaline casts Auto (Urine sed) [#/Area] Hyaline casts [#/area] in Urine sediment by Automated count 0-8 [facility] INR in Platelet poor plasma by Coagulation assayOrdered By: Fly Conti on 08-31-2024 INR Coag (PPP) [Relative time] INR in Platelet poor plasma by Coagulation assay [facility] Comment on above: INR Therapeutic Rang [...] with mechanical heart valves: 3 - 4.5 Ketones Test strip Ql (U)Ord ered By: Fly Conti on 08-31-2024 Ketones Ql (U) Ketones [Presence] i n Urine by Test strip Negative [facility] Leukocyte esterase [Presence ] in Urine by Test stripOrdered By: Fly Conti on 08-31-2024 Leukocyte esterase Test strip Ql (U) Leukocyte esterase [Presence] in Urine by Test strip High Negative [facility] Leukocytes [#/area] in Urine sediment by Automated countOrdered By: Fly Conti on 08-31-2024 WBC Auto (Urine sed) [#/Area] Leukocytes [#/area] in Urine sediment by Automated count 0-4 [facility] Leukocytes [#/volume] correc henry for nucleated erythrocytes in Blood by Automated counOrdered By: Fly Conti on 08-31-2024 WBC corrected for nucl RBC Auto (Bld) [#/Vol] Leukocytes [#/volume] corrected for nucleated erythrocytes in Blood by Automated coun 3.8-11.6 [facility] Lipaseon 08-31-2024 Lipase [Catalytic activity/Vol] 2452.0 U/L High 11.0-82.0 [facility] Comment on above: Result Comment: PERF ORMED BY: [facility] [address] [place] [address] PATHOLOGIST DISPENSARY ATTENDANT BARBARA WOLFE M.D. Performed By: #### L IPASE, HS TROP, TRIG, HEPATIC #### [facility] [address] Lipase [Enzymatic activity/v olume] in Serum or PlasmaOrdered By: Fly Conti on 08-31-2024 Lipase [Catalytic activity/Vol] Lipase [Enzymatic activity/volume] in Serum or Plasma High 11.0-82.0 [facility] Lymphocytes Auto (Bld) [#/Vo l]Ordered By: Fly Conti on 08-31-2024 Lymphocytes (Bld) [#/Vol] Lymphocytes [#/volume] in Blood by Automated count 1.00-4.8 [facility] Lymphocytes/100 WBC Auto (Bl d)Ordered By: Fly Conti on 08-31-2024 Lymphocytes/100 WBC (Bld) Lymphocytes/100 leukocytes in Blood by Automated count . [facility] MCH Auto (RBC) [Entitic mass ]Ordered By: Fly Conti on 08-31-2024 MCH (RBC) [Entitic mass] MCH [Entitic ma ss] by Automated count 24.7-34.3 [facility] MCHC Auto (RBC) [Mass/Vol]Or dered By: Fly Conti on 08-31-2024 MCHC (RBC) [Mass/Vol] MCHC [Mass/volume] by Automated count 32.0-35.0 [facility] MCV Auto (RBC) [Entitic vol] Ordered By: Fly Conti on 08-31-2024 MCV (RBC) [Entitic vol] MCV [Entitic vol ume] by Automated count 80-100 [facility] Monocyte distribution width [Entitic volume] in Blood by AutomatedOrdered By: Fly Conti on 08-31-2024 Monocyte distribution width Auto (Bld) [Entitic vol] Monocyte distribution width [Entitic volume] in Blood by Automated High 0.00-20.00 [facility] Comment on above: For adults in ED, MD W > 20.0 may be associated with a higher risk of sepsis during the first 12 hrs of hospital admission Monocytes Auto (Bld) [#/Vol] Ordered By: Fly Conti on 08-31-2024 Monocytes (Bld) [#/Vol] Automated blood monocyte count 0.0-0.8 [facility] Monocytes/100 WBC Auto (Bld) Ordered By: Fly Conti on 08-31-2024 Monocytes/100 WBC (Bld) Automated monocyte % . [facility] Natriuretic peptide B [Mass/ Vol]Ordered By: Fly Conti on 08-31-2024 Natriuretic peptide B (Bld) [Mass/Vol] BNP ser/plas 5-100 [facility] Neutrophils Auto (Bld) [#/Vo l]Ordered By: Fly Conti on 08-31-2024 Neutrophils (Bld) [#/Vol] Neutrophils [#/volume] in Blood by Automated count 1.8-7.7 [facility] Neutrophils/100 WBC Auto (Bl d)Ordered By: Fly Conti on 08-31-2024 Neutrophils/100 WBC (Bld) Automated neutrophil % . [facility] Nitrite Test strip Ql (U)Ord ered By: Fly Conti on 08-31-2024 Nitrite Ql (U) Nitrite [Presence] i n Urine by Test strip Negative [facility] No Panel InformationOrdered By: Fly Conti on 08-31-2024 Estimated GFR (CKD-EPI) > 60.0 mL/Min [facility] Creatinine Clearance (Chem 83.98 [facility] Nucleated erythrocytes [Pres ence] in Blood by Automated countOrdered By: Fly Conti on 08-31-2024 Nucleated RBC Auto Ql (Bld) Nucleated erythrocytes [Presence] in Blood by Automated count 0-0.5 [facility] Platelet mean volume Auto (B ld) [Entitic vol]Ordered By: Fly Conti on 08-31-2024 Platelet mean volume (Bld) [Entitic vol] Platelet mean volume [Entitic volume] in Blood by Automated count 6.3-10.7 [facility] Platelets Auto (Bld) [#/Vol] Ordered By: Fly Conti on 08-31-2024 Platelets (Bld) [#/Vol] Platelets [#/vol ume] in Blood by Automated count 150-450 [facility] Potassium [Moles/volume] in Serum or PlasmaOrdered By: Fly Conti on 08-31-2024 Potassium [Moles/Vol] Potassium [Moles/v olume] in Serum or Plasma 3.5-5.1 [facility] Protein Test strip (U) [Mass /Vol]Ordered By: Fly Conti on 08-31-2024 Protein (U) [Mass/Vol] Protein [Mass/vol ume] in Urine by Test strip Negative [facility] Protein [Mass/volume] in Ser um or PlasmaOrdered By: Fly Conti on 08-31-2024 Protein [Mass/Vol] Protein [Mass/volume ] in Serum or Plasma Low 6.4-8.9 [facility] Prothrombin Time INRon 08-31 INR Coag (PPP) [Relative time] 1.0 {INR} Normal [facility] Comment on above: Result Comment: INR Therapeutic Range A) Pre- and Peroperative OAT started [...] valves: 3 - 4.5 Performed By: #### L IPASE, HS TROP, TRIG, HEPATIC #### [facility] [address] [place] [id number] [facility] PT Coag (PPP) [Time] 11.0 s Normal 9.0-12.9 [facility] Comment on above: Result Comment: A he matocrit value greater than 55% may lead to inaccurate results in coagulation testing. Patients having hematocrit values >55% require a special collection tube for coagulation studies. Please contact the laboratory at [phone] for redraw instructions. Performed By: #### L IPASE, HS TROP, TRIG, HEPATIC #### [facility] [address] [place] [id number] [facility] Prothrombin time (PT)Ordered By: Fly Conti on 08-31-2024 PT Coag (PPP) [Time] Prothrombin time (PT) 9.0- 12.9 [facility] Comment on above: A hematocrit value g reater than 55% may lead to inaccurate results in coagulation testing. Patients having hematocrit values >55% require a special collection tube for coagulation studies. Please contact the laboratory at [phone] for redraw instructions. RBC Auto (Bld) [#/Vol]Ordere d By: Fly Conti on 08-31-2024 RBC (Bld) [#/Vol] Erythrocytes [#/volu me] in Blood by Automated count 3.60-5.00 [facility] Serum or plasma albumin/glob ulin mass ratioOrdered By: Fly Conti on 08-31-2024 Albumin/Globulin [Mass ratio] Serum or plasma albumin/globulin mass ratio [facility] Serum or plasma anion gap de terminationOrdered By: Fly Conti on 08-31-2024 Anion gap [Moles/Vol] Serum or plasma an ion gap determination 6.0-15.0 [facility] Serum or plasma non-glucuron idated bilirubin measurement (mass/volume)Ordered By: Fly Conti on 08-31-2024 Bilirubin.indirect [Mass/Vol] Serum or plasma non-glucuronidated bilirubin measurement (mass/volume) [facility] Sodium [Moles/volume] in Ser um or PlasmaOrdered By: Fly Conti 08-31-2024 Sodium [Moles/Vol] Sodium [Moles/volume ] in Serum or Plasma Low 136-145 [facility] Specific gravity Test strip (U) [Rel density]Ordered By: Fly Conti 08-31-2024 Specific gravity (U) [Rel density] Specific gravity of Urine by Test strip 1.001-1.03 0 [facility] Triglyceride [Mass/volume] i n Serum or PlasmaOrdered By: Fly Conti on 08-31-2024 Triglyceride [Mass/Vol] Triglyceride [Mass/volume] in Serum or Plasma 35-149 [facility] Comment on above: TRIG ATP III CLASSIF ICATIONTRIG less than 150 mg/dL NormalTRIG 150-199 mg/dL Borderline highTRIG 200-500 mg/dL High TRIG greater than 500 mg/dL Very highStandard traceable to the Center for Disease Conrtrol and Prevention (CDC) test method. Triglycerideson 08-31-2024 Triglyceride [Mass/Vol] 105 mg/dL Normal 35-149 T [facility] Comment on above: Result Comment: TRIG ATP III CLASSIFICATION TRIG less than 150 mg/dL Normal TRIG 150-199 mg/dL Borderline high TRIG 200-500 mg/dL High TRIG greater than 500 mg/dL Very high Standard traceable to the Center for Disease Conrtrol and Prevention (CDC) test method. PERFORMED BY: [place] [address] PATHOLOGIST DISPENSARY ATTENDANT BARBARA WOLFE M.D. Performed By: #### L IPASE, HS TROP, TRIG, HEPATIC #### [place] [address] [place] Troponin I High Sensitivityo n 08-31-2024 Troponin I High Sensitivity 4 Normal 0-15 [facility] Comment on above: Result Comment: The Troponin units of report have been changed to meet the Chest Pain Accreditation requirement, element EC5.M1l2. Troponin units are changed from pg/ml to ng/L. Also, the decimal is removed and results are in whole numbers. PERFORMED BY: [place] [address] PATHOLOGIST DISPENSARY ATTENDANT BARBARA WOLFE M.D. Performed By: #### L IPASE, HS TROP, TRIG, HEPATIC #### [place] [address] [place] Troponin I High Sensitivity 4 Normal 0-15 [facility] Comment on above: Result Comment: The Troponin units of report have been changed to meet the Chest Pain Accreditation requirement, element EC5.M1l2. Troponin units are changed from pg/ml to ng/L. Also, the decimal is removed and results are in whole numbers. PERFORMED BY: [place] [address] PATHOLOGIST DISPENSARY ATTENDANT BARBARA WOLFE M.D. Performed By: #### L IPASE, HS TROP, TRIG, HEPATIC #### [place] [id number] [place] Troponin I.cardiac [Mass/vol ume] in Serum or Plasma by Detection limit <= 0.01 ng/Ordered By: Fly Conti on 08-31-2024 Troponin I.cardiac DL <= 0.01 ng/mL [Mass/Vol] Troponin I.cardiac [Mass/volume] in Serum or Plasma by Detection limit <= 0.01 ng/ 0-15 [facility] Comment on above: The Troponin units o f report have been changed to meet the Chest Pain Accreditation requirement, element EC5.M1l2. Troponin units are changed from pg/ml to ng/L. Also, the decimal is removed and results are in whole numbers. Urea nitrogen [Mass/volume] in Serum or PlasmaOrdered By: Fly Conti on 08-31-2024 Urea nitrogen [Mass/Vol] Urea nitrogen [Mass/volume] in Serum or Plasma High 7-25 [facility] Urobilinogen Test strip (U) [Mass/Vol]Ordered By: Fly Conti on 08-31-2024 Urobilinogen (U) [Mass/Vol] Urobilinogen [Mass/volume] in Urine by Test strip Normal [facility] WBC Auto (Bld) [#/Vol]Ordere d By: Fly Conti on 08-31-2024 WBC (Bld) [#/Vol] Leukocytes [#/volume ] in Blood by Automated count 3.8-11.6 [facility] X-ray reportOrdered By: Alejo Ferrer on 08-31-2024 Study report [facility] Main [address] [address] XRay Report Signed Patient: Izabella Ogden MR#: [id number] : 1965 Acct:[id number] Age/Sex: 59 / F ADM Date: 5 Loc: ER Room: Type: PRE ER Attending Dr: Copies to: NAPOLEON MCALLISTER~ Ordering Provider: NAPOLEON MCALLISTER Date of Service: 08/31/24 XR/XR chest 2V*: Chest Pain PA AND LATERAL CHEST: CLINICAL HISTORY: Midsternal chest pain COMPARISON: None FINDINGS: Unremarkable cardiomediastinal silhouette. Lungs are clear. No effusion or pneumothorax. XR/XR chest 2V* IMPRESSION: NO ACUTE CARDIOPULMONARY ABNORMALITY. Impression dictated by: Germán Ferrer M.D. 08/31/2024 4:15 PM Dictation Location: RADIO-PC-29 Transcribed By: SORIN 08/31/241614 Dictated By: Germán Ferrer MD 08/31/241614 Signed By: 08/31/241614 [facility] Work Phone: XR chest 2V*on 08-31-2024 XR chest 2V* [facility] Main [place] [address] [place] [address] XRay Report Signed Patient: Izabella Ogden MR#: [id number] : 1965 Acct:[id number] Age/Sex: 59 / F ADM Date: 08/31/24 [...] Ferrer M.D. 08/31/2024 4:15 PM Dictation Location: RADIO-PC-29 Transcribed By: SORIN 08/31/241614 Dictated By: Germán Ferrer MD 08/31/241614 Signed By: 08/31/241614 Normal [facility] pH Test strip (U)Ordered By: Fly Conti on 08-31-2024 pH (U) pH of Urine by Test strip 5.0-9.0 [facility] ECG 12 Leadon 08-10-2024 ECG revealed normal sinus rhythm, low voltage QRS complex, septal myocardial infarction of undetermined age. Abnormal ECG [facility] Work Phone: IGP,APTIMA HPV,AGE GDLNon AGE GDLN ACOG TESTING Note . [facility] Comment on above: TESTS RESULT FLAG UN ITS REF RANGE LAB Clinician Provided Cytology Information Source.............Cervix;Endocervix No. of containers..01 ThinPrep Vial Age Algo ACOG Alejandra... FLAG LEGEND: L-Low Normal,H-High Normal,LL-Alert Low,HH-Alert High <-Panic Low,>-Panic High,A-Abnormal,AA-Critical Abnormal Performed at: 01 =[employer] [place] [place] [address] Desiree Hall MD, HPV APTIMA Negative Negative [facility] Comment on above: This nucleic acid am plification test detects fourteen high- risk HPV types (16,18,31,33,35,39,45,51,52,56,58,59,66,68) without differentiation. Performed at: =[employer] [place] [id number] Lead Enterprise Architect: Desiree Hall MD, Phone: [phone] Performed at: [facility] [address] [place] [id number] Lead Enterprise Architect: James Dixon MD, Phone: [phone] IGP, APTIMA HPV, RFX 16/18,45 Note . [facility] Comment on above: TESTS RESULT FLAG UN ITS REF RANGE LAB DIAGNOSIS: 02 NEGATIVE FOR INTRAEPITHELIAL LESION OR MALIGNANCY. CELLULAR CHANGES ASSOCIATED WITH ATROPHY ARE PRESENT. THIS SPECIMEN WAS RESCREENED PART OF OUR HOME CARE COORDINATOR PROGRAM. Specimen adequacy: 02 Satisfactory for evaluation. Endocervical and/or squamous metaplastic cells (endocervical component) are present. Performed by: 02 Bryant Samaniego, Electrical Electronics Engineer (ASC) QC reviewed by: 02 Nuris Mason, Electrical Electronics Engineer (ASC) . 02 Note: Note 03 The Pap [...] High,A-Abnormal,AA-Critical Abnormal Performed at: 02 [facility] [address] [place] [address] James Dixon MD, 03 WB [facility] [address] [address] Desiree Hall MD, BRUSH-SPATULA CERVIX ENDOCERVIX [facility] Reminderson 04-07-2024 Reminders Reminders From: Moon Wheatley LPN To: N - Clinical; Sent: 04/07/2024 12:50:14 EST Show up: 03/07/2034 07:00:00 EDT Subject: colonoscopy recall Due Date/Time: 04/06/2034 07:00:00 EST Reminder/Recall Patient due for screening colonoscopy 04/06/2034. Normal [facility] Ambulatory Visit Summaryon 1 05-08-2023 Ambulatory Visit Summary Ambulatory Visi t Summary IZABELLA OGDEN :1965 MRN:[id number] Visit Date:03/08/2024 Ambulatory Visit Instructions Your Diagnosis Positive colorectal cancer screening using Cologuard test Your Care Team Attending Physician - Oj GONZALEZ MD Primary Care Physician - Ciarra Monroy MD [...] for choosing us for your care. Normal [facility] Alanine aminotransferase [En zymatic activity/volume] in Serum or PlasmaOrdered By: Anali Card on 02-12-2023 ALT [Catalytic activity/Vol] 70 U/L 7-52 [facility] Albumin [Mass/volume] in Ser um or Plasma by Bromocresol green (BCG) dye binding methoOrdered By: Anali Card on 02-12-2023 Albumin BCG dye [Mass/Vol] 4.3 g/dL 3.5-5.7 [facility] Alkaline phosphatase [Enzyma tic activity/volume] in Serum or PlasmaOrdered By: Anali Card on 02-12-2023 ALP [Catalytic activity/Vol] 80 U/L 34-104 [facility] Aspartate aminotransferase [ Enzymatic activity/volume] in Serum or PlasmaOrdered By: Anali Card on 02-12-2023 AST [Catalytic activity/Vol] 36 U/L 13-39 [facility] Basophils Auto (Bld) [#/Vol] Ordered By: Anali Card on 02-12-2023 Basophils (Bld) [#/Vol] 0.0 10*3/uL 0.0-0.2 [facility] Basophils/100 WBC Auto (Bld) Ordered By: Anali Card on 02-12-2023 Basophils/100 WBC (Bld) 0.4 % . [facility] Bilirubin.total [Mass/volume ] in Serum or PlasmaOrdered By: Anali Card on 02-12-2023 Bilirubin [Mass/Vol] 0.5 mg/dL 0.3-1.0 [facility] Calcium [Mass/volume] in Ser um or PlasmaOrdered By: Anali Card on 02-12-2023 Calcium [Mass/Vol] 9.2 mg/dL 8.6-10.3 [facility] Carbon dioxide, total [Moles /volume] in Serum or PlasmaOrdered By: Anali Card on 02-12-2023 CO2 [Moles/Vol] 28.6 mmol/L 21.0-31.0 [facility] Chloride [Moles/volume] in S tex or PlasmaOrdered By: Anali Card on 02-12-2023 Chloride [Moles/Vol] 106 mmol/L 98-107 [facility] Creatinine [Mass/volume] in Serum or PlasmaOrdered By: Anali Card on 02-12-2023 Creatinine [Mass/Vol] 0.93 mg/dL 0.60-1.20 [facility] Eosinophils Auto (Bld) [#/Vo l]Ordered By: Anali Card on 02-12-2023 Eosinophils (Bld) [#/Vol] 0.1 10*3/uL 0.0-0.45 [facility] Eosinophils/100 WBC Auto (Bl d)Ordered By: Anali Card on 02-12-2023 Eosinophils/100 WBC (Bld) 2.1 % . [facility] Erythrocyte distribution wid th Auto (RBC) [Ratio]Ordered By: Anali Card on 02-12-2023 Erythrocyte distribution width (RBC) [Ratio] 14.5 % 11.9-15.3 [facility] Globulin Calc (S) [Mass/Vol] Ordered By: Anali Card on 02-12-2023 Globulin (S) [Mass/Vol] 2.3 g/dL [facility] Glucose [Mass/volume] in Ser um or PlasmaOrdered By: Anali Card on 02-12-2023 Glucose [Mass/Vol] 107 mg/dL 70-100 [facility] Comment on above: ADA recommended refe rence rangeRandom Glucose Reference Range is dependent on time and content of last meal. Glucose of more than 200 mg/dL in a nonstressed, ambulatory subject supports the diagnosis of Diabetes Mellitus. Hematocrit Auto (Bld) [Volum e fraction]Ordered By: Anali Card on 02-12-2023 Hematocrit (Bld) [Volume fraction] 39.2 % 34.0-46.4 [facility] Hemoglobin [Mass/volume] in BloodOrdered By: Anali Card on 02-12-2023 Hemoglobin (Bld) [Mass/Vol] 13.1 g/dL 11.8-15.4 [facility] Leukocytes [#/volume] correc henry for nucleated erythrocytes in Blood by Automated counOrdered By: Anali Card on 02-12-2023 WBC corrected for nucl RBC Auto (Bld) [#/Vol] 4.9 10*3/uL 3.8-11.6 [facility] Lymphocytes Auto (Bld) [#/Vo l]Ordered By: Anali Card on 02-12-2023 Lymphocytes (Bld) [#/Vol] 1.5 10*3/uL 1.00-4.8 [facility] Lymphocytes/100 WBC Auto (Bl d)Ordered By: Anali Card on 02-12-2023 Lymphocytes/100 WBC (Bld) 31.0 % . [facility] MCH Auto (RBC) [Entitic mass ]Ordered By: Anali Card on 02-12-2023 MCH (RBC) [Entitic mass] 30.4 pg 24.7-34.3 [facility] MCHC Auto (RBC) [Mass/Vol]Or dered By: Anali Card on 02-12-2023 MCHC (RBC) [Mass/Vol] 33.5 g/dL 32.0-35.0 [facility] MCV Auto (RBC) [Entitic vol] Ordered By: Anali Card on 02-12-2023 MCV (RBC) [Entitic vol] 90.8 fL 80-100 [facility] Monocytes Auto (Bld) [#/Vol] Ordered By: Anali Card on 02-12-2023 Monocytes (Bld) [#/Vol] 0.4 10*3/uL 0.0-0.8 [facility] Monocytes/100 WBC Auto (Bld) Ordered By: Anali Card on 02-12-2023 Monocytes/100 WBC (Bld) 8.2 % . [facility] Neutrophils Auto (Bld) [#/Vo l]Ordered By: Anali Card on 02-12-2023 Neutrophils (Bld) [#/Vol] 2.9 10*3/uL 1.8-7.7 [facility] Neutrophils/100 WBC Auto (Bl d)Ordered By: Anali Card on 02-12-2023 Neutrophils/100 WBC (Bld) 58.3 % . [facility] No Panel InformationOrdered By: Anali Card on 02-12-2023 Estimated GFR (CKD-EPI) > 60.0 mL/Min [facility] Creatinine Clearance (Chem N/A [facility] Nucleated erythrocytes [Pres ence] in Blood by Automated countOrdered By: Anali Card on 02-12-2023 Nucleated RBC Auto Ql (Bld) 0.1 /100{WBC} 0-0.5 [facility] Platelet mean volume Auto (B ld) [Entitic vol]Ordered By: Anali Card on 02-12-2023 Platelet mean volume (Bld) [Entitic vol] 9.6 fL 6.3-10.7 [facility] Platelets Auto (Bld) [#/Vol] Ordered By: Anali Card on 02-12-2023 Platelets (Bld) [#/Vol] 202 10*3/uL 150-450 [facility] Potassium [Moles/volume] in Serum or PlasmaOrdered By: Anlai Card on 02-12-2023 Potassium [Moles/Vol] 4.6 mmol/L 3.5-5.1 [facility] Protein [Mass/volume] in Ser um or PlasmaOrdered By: Anali Card on 02-12-2023 Protein [Mass/Vol] 6.6 g/dL 6.4-8.9 [facility] RBC Auto (Bld) [#/Vol]Ordere d By: Anali Card on 02-12-2023 RBC (Bld) [#/Vol] 4.32 10*6/uL 3.60-5.00 [facility] Serum or plasma albumin/glob ulin mass ratioOrdered By: Anali Card on 02-12-2023 Albumin/Globulin [Mass ratio] 1.9 {ratio} [facility] Serum or plasma anion gap de terminationOrdered By: Anali Card on 02-12-2023 Anion gap [Moles/Vol] 11.0 mmol/L 6.0-15.0 [facility] Sodium [Moles/volume] in Ser um or PlasmaOrdered By: Anali Card on 02-12-2023 Sodium [Moles/Vol] 141 mmol/L 136-145 [facility] Urea nitrogen [Mass/volume] in Serum or PlasmaOrdered By: Anali Card on 02-12-2023 Urea nitrogen [Mass/Vol] 16 mg/dL 7-25 [facility] WBC Auto (Bld) [#/Vol]Ordere d By: Anali Card on 02-12-2023 WBC (Bld) [#/Vol] 4.9 10*3/uL 3.8-11.6 [facility] ANTICARDIOLIPIN AB (SELINA) IGG on 06-09-2022 Anticardiolipin Ab,IgG,Qn <9 Normal 0-14 [facility] Comment on above: Result Comment: Nega tive: <15 Indeterminate: 15 - 20 Low-Med Positive: >20 - 80 High Positive: >80 Performed By: #### C ARDLIP #### [facility] [address] [place] [address] Dr. Allison Neely CBC AUTO DIFFon 06-06-2022 BASO # 0.0 103/ul Normal 0.0-0.1 [facility] Comment on above: Performed By: #### C BC #### [facility] [address] [place] [address] Dr. Allison Neely Basophils/100 WBC (Bld) 0.5 % Normal 0.2-2.0 [facility] Comment on above: Performed By: #### C BC #### [facility] [address] [place] [address] Dr. Allison Neely EO # 0.1 103/ul Normal 0.0-0.7 [facility] Comment on above: Performed By: #### C BC #### [facility] [address] [place] [address] Dr. Allison Neely Eosinophils/100 WBC (Bld) 0.9 % Normal 0.9-7.0 [facility] Comment on above: Performed By: #### C BC #### [facility] [address] [place] [address] Dr. Allison Neely Erythrocyte distribution width (RBC) [Ratio] 13.7 % Normal 11.0-15.0 [facility] Comment on above: Performed By: #### C BC #### [facility] [address] [place] [address] Dr. Allison Neely Hematocrit (Bld) [Volume fraction] 41.8 % Normal 36.0-48.0 [facility] Comment on above: Performed By: #### C BC #### [facility] [address] [place] [address] Dr. Allison Neely Hemoglobin (Bld) [Mass/Vol] 13.0 g/dL Normal 12.0-16.0 [facility] Comment on above: Performed By: #### C BC #### [facility] [address] [place] [address] Dr. Allison Neely IG # 0.01 10e3/ul Normal 0.00-0.03 [facility] Comment on above: Performed By: #### C BC #### [facility] [address] [place] [address] Dr. Allison Neely IG % 0.2 % Normal 0.0-0.5 [facility] Comment on above: Performed By: #### C BC #### [facility] [address] [place] [address] Dr. Allison Neely LYMPH # 1.7 103/ul Normal 1.2-3.8 [facility] Comment on above: Performed By: #### C BC #### [facility] [address] [place] [address] Dr. Allison Neely Lymphocytes/100 WBC (Bld) 30.5 % Normal 20.5-60.0 [facility] Comment on above: Performed By: #### C BC #### [facility] [address] [place] [address] Dr. Allison Neely MANUAL DIFF REQ NO Normal [facility] Comment on above: Performed By: #### C BC #### [facility] [address] [address] [address] Allsion Neely MCH (RBC) [Entitic mass] 29.7 pg Normal 26.7-34.0 [facility] Comment on above: Performed By: #### C BC #### [facility] [address] [place] [address] Dr. Allison Neely MCHC (RBC) [Mass/Vol] 31.1 g/dL Normal 29.9-35.2 [facility] Comment on above: Performed By: #### C BC #### [facility] [address] [place] [address] Dr. Allison Neely MCV (RBC) [Entitic vol] 95.7 fL Normal 81.0-99.0 [facility] Comment on above: Performed By: #### C BC #### [facility] [address] [place] [address] Dr. Allison Neely MONO # 0.3 103/ul Normal 0.3-0.8 [facility] Comment on above: Performed By: #### C BC #### [facility] [address] [place] [address] Dr. Allison Neely Monocytes/100 WBC (Bld) 5.1 % Normal 1.7-12.0 [facility] Comment on above: Performed By: #### C BC #### [facility] [address] [place] [address] Dr. Allison Neely NEUT # 3.5 103/ul Normal 1.4-6.5 [facility] Comment on above: Performed By: #### C BC #### [facility] [address] [place] [address] Dr. Allison Neely Neutrophils/100 WBC (Bld) 62.8 % Normal 43.0-75.0 [facility] Comment on above: Performed By: #### C BC #### [facility] [address] [place] [address] Dr. Allison Neely Platelet mean volume (Bld) [Entitic vol] 12.0 fL Normal 9.5-13.5 [facility] Comment on above: Performed By: #### C BC #### [facility] [address] [address] [address] Allison Neely PLT 274 103/ul Normal 150-450 [facility] Comment on above: Performed By: #### C BC #### [facility] [address] [place] [address] Dr. Allison Neely RBC 4.37 106/ul Normal 4.20-5.40 [facility] Comment on above: Performed By: #### C BC #### [facility] [address] [address] [address] Allison Neely WBC 5.6 103/ul Normal 4.0-11.0 [facility] Comment on above: Performed By: #### C BC #### [facility] [address] [place] [address] Dr. Allison Neely PROF 14(COMP METB)on 023 Albumin [Mass/Vol] 4.0 g/dL Normal 3.4-5.0 [facility] Comment on above: Performed By: #### C MP #### [facility] [address] [place] [address] Dr. Allison Neely Albumin/Globulin [Mass ratio] 1.3 {ratio} Normal [facility] Comment on above: Performed By: #### C MP #### [facility] [address] [place] [address] Dr. Allison Neely ALP [Catalytic activity/Vol] 103 U/L Normal 46-116 [facility] Comment on above: Performed By: #### C MP #### [facility] [address] [place] [address] Dr. Allison Neely ALT [Catalytic activity/Vol] 69 U/L Critically high 14-59 [facility] Comment on above: Performed By: #### C MP #### [facility] [address] [place] [address] Dr. Allison Neely Anion gap [Moles/Vol] 12.8 mmol/L Normal [facility] Comment on above: Performed By: #### C MP #### [facility] [address] [address] [address] Allison Neely AST [Catalytic activity/Vol] 30 U/L Normal 15-37 [facility] Comment on above: Performed By: #### C MP #### [facility] [address] [address] [address] Allison Neely Bilirubin [Mass/Vol] 0.4 mg/dL Normal 0.2-1.0 [facility] Comment on above: Performed By: #### C MP #### [facility] [address] [address] [address] Allison Neely Calcium [Mass/Vol] 9.3 mg/dL Normal 8.5-10.1 [facility] Comment on above: Performed By: #### C MP #### [facility] [address] [place] [address] Dr. Allison Neely Chloride [Moles/Vol] 101 mmol/L Normal 98-107 [facility] Comment on above: Performed By: #### C MP #### [facility] [address] [place] [address] Dr. Allison Neely CO2 [Moles/Vol] 29.2 mmol/L Normal 21.0-32.0 [facility] Comment on above: Performed By: #### C MP #### [facility] [address] [place] [address] Dr. Allison Neely Creatinine [Mass/Vol] 0.99 mg/dL Normal 0.55-1.02 [facility] Comment on above: Performed By: #### C MP #### [facility] [address] [place] [address] Dr. Allison Neely EGFR-AF BULGARIAN >60 Normal >=60 [facility] Comment on above: Performed By: #### C MP #### [facility] [address] [place] [address] Dr. Allison Neely EGFR-NON AF BULGARIAN 58 mL/min/1.73m2 Critically low >=60 [facility] Comment on above: Performed By: #### C MP #### [facility] [address] [place] [address] Dr. Allison Neely Globulin (S) [Mass/Vol] 3.0 g/dL Normal [facility] Comment on above: Performed By: #### C MP #### [facility] [address] [address] [address] Allison Neely Glucose [Mass/Vol] 157 mg/dL Critically high 74-106 [facility] Comment on above: Performed By: #### C MP #### [facility] [address] [address] [address] Allison Neely Potassium [Moles/Vol] 4.0 mmol/L Normal 3.5-5.1 [facility] Comment on above: Performed By: #### C MP #### [facility] [address] [place] [address] Dr. Allison Neely Protein [Mass/Vol] 7.0 g/dL Normal 6.4-8.2 [facility] Comment on above: Performed By: #### C MP #### [facility] [address] [place] [address] Dr. Allison Neely Sodium [Moles/Vol] 139 mmol/L Normal 136-145 [facility] Comment on above: Performed By: #### C MP #### [facility] [address] [place] [address] Dr. Allison Neely Urea nitrogen [Mass/Vol] 26.0 mg/dL Critically high 7.0-18 .0 [facility] Comment on above: Performed By: #### C MP #### [facility] [address] [place] [address] Dr. Allison Neely Urea nitrogen/Creatinine [Mass ratio] 26.3 mg/mg Normal [facility] Comment on above: Performed By: #### C MP #### [facility] [address] [place] [address] Dr. Allison Neely ANTICARDIOLIPIN AB (SELINA) IGG on 12-26-2021 Anticardiolipin Ab,IgG,Qn <9 Normal 0-14 [facility] Comment on above: Result Comment: Nega tive: <15 Indeterminate: 15 - 20 Low-Med Positive: >20 - 80 High Positive: >80 Performed By: #### C ARDLIP #### [facility] [address] [place] [address] Dr. Allison Neely PAP ACOG PANEL 2: 30 to 65on 08-29-2021 . . Normal [facility] Comment on above: Result Comment: Perf ormed at: WB Performed By: #### [id number] #### [facility] [address] [place] [address] Dr. Allison Neely Age Gdln ACOG Testing 30-65 [facility] Comment on above: Performed By: #### [id number] #### [facility] [address] [place] [address] Dr. Allison Neely DIAGNOSIS: Comment Normal [facility] Comment on above: Result Comment: NEGA TIVE FOR INTRAEPITHELIAL LESION OR MALIGNANCY. CELLULAR CHANGES ASSOCIATED WITH ATROPHY ARE PRESENT. Performed at: WB Performed By: #### [id number] #### [facility] [address] [place] [address] Dr. Allison Neely HPV Aptima Negative Normal [facility] Comment on above: Result Comment: This nucleic acid amplification test detects fourteen high-risk HPV types (16,18,31,33,35,39,45,51,52,56,58,59,66,68) without differentiation. Performed at: =G Performed By: #### [id number] #### [facility] [address] [place] [address] Dr. Allison Neely Methodology: Comment Normal [facility] Comment on above: Result Comment: This liquid based ThinPrep(R) pap test was screened with the use of an image guided system. Performed at: WB Performed By: #### [id number] #### [facility] [address] [place] [address] Dr. Allison Neely Note: Comment Normal [facility] Comment on above: Result Comment: The Pap smear is a screening test designed to aid in the detection of premalignant and malignant conditions of the uterine cervix. It is not a diagnostic procedure and should not be used as the sole means of detecting cervical cancer. Both false-positive and false-negative reports do occur. . Performed at: WB Performed By: #### [id number] #### [facility] [address] [address] [address] Allison Neely Performed by: Comment [facility] Comment on above: Result Comment: Nuno Solis, Electrical Electronics Engineer (ASCP) Performed at: WB Performed By: #### [id number] #### [facility] [address] [address] [address] Allison Neely Specimen adequacy: Comment Normal [facility] Comment on above: Result Comment: Sati sfactory for evaluation. Endocervical component may not be distinguished in cases of atrophy. Performed at: WB Performed By: #### [id number] #### [facility] [address] [address] [address] Allison Neely Activated partial thrombopla stin time (aPTT) in platelet poor plasma by coagulation aOrdered By: Anali Card on 08-26-2021 aPTT Coag (PPP) [Time] 33.9 s 25.1-36.5 [facility] Albumin [Mass/volume] in Ser um or PlasmaOrdered By: Anali Card on 08-26-2021 Albumin [Mass/Vol] 4.0 g/dL [facility] Albumin/Protein.total in 24 hour Urine by ElectrophoresisOrdered By: Anali Card on 08-26-2021 Albumin Elph (24H U) [Mass fraction] 22.6 % [facility] Automated erythrocytes count in urine sediment (number/area)Ordered By: Anali Card on 08-26-2021 RBC Auto (Urine sed) [#/Area] 0-1 [HPF] [facility] Automated leukocytes count i n urine sediment (number/area)Ordered By: Anali Card on 08-26-2021 WBC Auto (Urine sed) [#/Area] 0-1 [HPF] [facility] Basophils Auto (Bld) [#/Vol] Ordered By: Anali Card on 08-26-2021 Basophils (Bld) [#/Vol] 0.0 10*3/uL 0.0-0.2 [facility] Basophils/100 WBC Auto (Bld) Ordered By: Anali Card on 08-26-2021 Basophils/100 WBC (Bld) 0.8 % [facility] Bilirubin Test strip Ql (U)O rdered By: Anali Card on 08-26-2021 Bilirubin Ql (U) Negative Negative [facility] Blood hemoglobin measurement (mass/volume)Ordered By: Anali Card on 08-26-2021 Hemoglobin (Bld) [Mass/Vol] 13.5 g/dL 11.8-15.4 [facility] Blood leukocytes automated c ount (number/volume)Ordered By: Anali Card on 08-26-2021 WBC (Bld) [#/Vol] 3.3 10*3/uL 4.5-11.0 [facility] Body fluid albumin measureme nt (mass/volume)Ordered By: Anali Card on 08-26-2021 Albumin (Body fld) [Mass/Vol] 4.3 g/dL 3.2-5.5 [facility] Color Auto (U)Ordered By: Venkat Card on 08-26-2021 Color (U) Yellow Yellow [facility] Creatine kinase [Enzymatic a ctivity/volume] in Serum or PlasmaOrdered By: Anali Card on 08-26-2021 CK [Catalytic activity/Vol] 137 U/L 22-269 [facility] Creatinine and Glomerular fi ltration rate.predicted panel (S/P/Bld)Ordered By: Anali Card on 08-26-2021 Creatinine [Mass/Vol] 0.91 mg/dL 0.44-1.03 [facility] Dilute Morgan's viper venom timeOrdered By: Anali Card on 08-26-2021 dRVVT Coag (PPP) [Time] 39.0 s [facility] Eosinophils Auto (Bld) [#/Vo l]Ordered By: Anali Card on 08-26-2021 Eosinophils (Bld) [#/Vol] 0.1 10*3/uL 0.0-0.45 [facility] Eosinophils/100 WBC Auto (Bl d)Ordered By: Anali Card on 08-26-2021 Eosinophils/100 WBC (Bld) 4.2 % [facility] Erythrocyte distribution wid th Auto (RBC) [Ratio]Ordered By: Anali Card on 08-26-2021 Erythrocyte distribution width (RBC) [Ratio] 13.6 % 11.9-15.3 [facility] Erythrocyte sedimentation ra te by Photometric methodOrdered By: Anali Card on 08-26-2021 ESR Photometric method (Bld) [Velocity] 9 mm/hr 0-29 [facility] Estimated glomerular filtrat ion rate (GFR) non- AmericanOrdered By: Anali Card on 08-26-2021 GFR/1.73 sq M.predicted among non-blacks MDRD (S/P/Bld) [Vol rate/Area] > 60 mL/Min [facility] Gamma globulin/Protein.total in 24 hour Urine by ElectrophoresisOrdered By: Anali Card on 08-26-2021 Gamma globulin Elph (24H U) [Mass fraction] 16.7 % [facility] Globulin Calc (S) [Mass/Vol] Ordered By: Anali Card on 08-26-2021 Globulin (S) [Mass/Vol] 2.4 g/dL [facility] Hematocrit Auto (Bld) [Volum e fraction]Ordered By: Anali Card on 08-26-2021 Hematocrit (Bld) [Volume fraction] 39.9 % 34.0-46.4 [facility] Hepatitis B virus surface Ag [Presence] in Serum or Plasma by ImmunoassayOrdered By: Anali Card on 08-26-2021 HBV surface Ag IA Ql Negative Negative [facility] Hepatitis C virus RNA [Prese nce] in Serum or Plasma by MALIKA with probe detectionOrdered By: Anali Card 08-26-2021 HCV RNA MALIKA+probe Ql N/A [facility] IgA [Mass/volume] in Serum o r PlasmaOrdered By: Anali Card on 08-26-2021 IgA [Mass/Vol] 103 mg/dL [facility] IgG [Mass/volume] in Serum o r PlasmaOrdered By: Anali Card on 08-26-2021 IgG [Mass/Vol] 617 mg/dL [facility] IgM [Mass/volume] in Serum o r PlasmaOrdered By: Anali Card on 08-26-2021 IgM [Mass/Vol] 226 mg/dL [facility] Comment on above: Performed at: - [facility] [address] [id number] Lead Enterprise Architect: Prakash Ballesteros PhD, Phone: [phone] Immunofixation for UrineOrde red By: Anali Card on 08-26-2021 Interpretation Immunofixation (U) [Interp] See comment [facility] Comment on above: No monoclonality det ected. Performed at: CB - [facility] [address] [id number] Lead Enterprise Architect: Prakash Ballesteros PhD, Phone: [phone] Ketones Auto test strip (U) [Mass/Vol]Ordered By: Anali Card on 08-26-2021 Ketones (U) [Mass/Vol] Negative Negative [facility] - CoagulationOrde red By: Anali Card on 08-26-2021 PT Coag (PPP) [Time] 11.1 s 9.0-12.9 [facility] - Hematology and Cell countsOrdered By: Anali Card on 08-26-2021 Nucleated RBC/100 WBC (Bld) [Ratio] 0.1 % 0-0.5 [facility] - UrinalysisOrder ed By: Anali Card on 08-26-2021 Hyaline casts LM Ql (Urine sed) 0-8 [LPF] [facility] Lupus anticoagulant [Interpr etation] in Platelet poor plasmaOrdered By: Anali Card on 08-26-2021 Lupus anticoagulant (PPP) [Interp] Comment: [facility] Comment on above: No lupus anticoagula nt was detected. Performed at: - [facility] [id number] Lead Enterprise Architect: Amanda Olmedo MD, Phone: [phone] Lymphocytes Auto (Bld) [#/Vo l]Ordered By: Anali Card on 08-26-2021 Lymphocytes (Bld) [#/Vol] 1.2 10*3/uL 1.00-4.8 [facility] Lymphocytes/100 WBC Auto (Bl d)Ordered By: Anali Card on 08-26-2021 Lymphocytes/100 WBC (Bld) 37.9 % [facility] MCH Auto (RBC) [Entitic mass ]Ordered By: Anali Card on 08-26-2021 MCH (RBC) [Entitic mass] 30.7 pg 24.7-34.3 [facility] MCHC Auto (RBC) [Mass/Vol]Or dered By: Anali Card on 08-26-2021 MCHC (RBC) [Mass/Vol] 33.8 g/dL 32.0-35.0 [facility] MCV Auto (RBC) [Entitic vol] Ordered By: Anali Card on 08-26-2021 MCV (RBC) [Entitic vol] 90.6 fL 80-100 [facility] Monocytes Auto (Bld) [#/Vol] Ordered By: Anali Card on 08-26-2021 Monocytes (Bld) [#/Vol] 0.3 10*3/uL 0.0-0.8 [facility] Monocytes/100 WBC Auto (Bld) Ordered By: Anali Card on 08-26-2021 Monocytes/100 WBC (Bld) 8.5 % [facility] Neutrophils Auto (Bld) [#/Vo l]Ordered By: Anali Card on 08-26-2021 Neutrophils (Bld) [#/Vol] 1.6 10*3/uL 1.8-7.7 [facility] Neutrophils/100 WBC Auto (Bl d)Ordered By: Anali Card on 08-26-2021 Neutrophils/100 WBC (Bld) 48.6 % [facility] Nitrite Test strip Ql (U)Ord ered By: Anali Card on 08-26-2021 Nitrite Ql (U) Negative Negative [facility] No Panel InformationOrdered By: Anali Card on 08-26-2021 Estimated GFR () > 60 mL/Min [facility] Comment on above: GFR estimated refere nce range: According to KDOQI guidelines, <60 ml/min/1.73m2 is sufficient to diagnose a patient with chronic kidney disease. Hepatitis B Core Total Antibody Negative Negative [facility] Comment on above: Performed at: CB - [facility] [address] [id number] Lead Enterprise Architect: Prakash Ballesteros PhD, Phone: [phone] Hepatitis C RNA Comment N/A [facility] Creatinine Clearance (Chem N/A [facility] Protein Electrophoresis M-Shawn Not observed g/dL Not Observed [facility] Protein Electrophoresis Note [facility] [facility] Comment on above: Protein electrophore sis scan will follow via computer, mail, or automotive tire worker delivery. Serum Immunofixation See comment [facility] Comment on above: No monoclonality det ected. Urine Random Prot Electrophor Note See comment [facility] Comment on above: Protein electrophore sis scan will follow via computer, mail, or automotive tire worker delivery. Performed at: [facility] [address] [id number] Lead Enterprise Architect: Prakash Ballesteros PhD, Phone: [phone] Platelet mean volume Auto (B ld) [Entitic vol]Ordered By: Anali Card on 08-26-2021 Platelet mean volume (Bld) [Entitic vol] 9.9 fL 6.3-10.7 [facility] Platelet poor plasma interna tional normalized ratio (INR) by coagulation assay (relatOrdered By: Anali Card on 08-26-2021 INR Coag (PPP) [Relative time] 1.0 {INR} [facility] Comment on above: INR Therapeutic Rang [...] (PPP) [Relative time] 35.7 sec [facility] Platelets Auto (Bld) [#/Vol] Ordered By: Anali Card on 08-26-2021 Platelets (Bld) [#/Vol] 243 10*3/uL 150-450 [facility] Protein Auto test strip (U) [Mass/Vol]Ordered By: Anali Card on 08-26-2021 Protein (U) [Mass/Vol] Negative Negative [facility] Protein [Mass/volume] in Ser um or PlasmaOrdered By: Anali Card on 08-26-2021 Protein [Mass/Vol] 6.7 g/dL 6.1-7.9 [facility] Protein [Mass/Vol] 6.5 g/dL [facility] Protein [Mass/volume] in Uri neOrdered By: Anali Card on 08-26-2021 Protein (U) [Mass/Vol] 9.0 mg/dL Not Estab. Fi [facility] Protein.monoclonal/Protein.t otal in 24 hour Urine by ElectrophoresisOrdered By: Anali Card on 08-26-2021 Protein.monoclonal Elph (24H U) [Mass fraction] Not observed % Not Observed [facility] RBC Auto (Bld) [#/Vol]Ordere d By: Anali Card on 08-26-2021 RBC (Bld) [#/Vol] 4.40 10*6/uL 3.60-5.00 [facility] Reagin Ab [Presence] in Seru m by RPROrdered By: Anali Card on 08-26-2021 Reagin Ab RPR Ql (S) Non-Reactive Non Reactive [facility] Comment on above: Performed at: [address] [id number] Lead Enterprise Architect: Prakash Ballesteros PhD, Phone: [phone] Serum angiotensin converting enzyme (ROS) measurementOrdered By: Anali Card on 08-26-2021 Angiotensin converting enzyme [Catalytic activity/Vol] 33 U/L [facility] Comment on above: Performed at: - [address] [id number] Lead Enterprise Architect: Prakash Ballesteros PhD, Phone: [phone] Serum globulin measurement ( mass/volume)Ordered By: Anali Card on 08-26-2021 Globulin (S) [Mass/Vol] 2.5 g/dL [facility] Serum hepatitis B virus surf ros antibody detectionOrdered By: Anali Card on 08-26-2021 HBV surface Ab Ql (S) Reactive [facility] Comment on above: Non Reactive: Incons istent with immunity, less than 10 mIU/mL Reactive: Consistent with immunity, greater than 9.9 mIU/mL Serum or plasma C reactive p rotein measurement (mass/volume)Ordered By: Anali Card on 08-26-2021 CRP [Mass/Vol] 0.5 mg/dL 0.0-1.0 [facility] Serum or plasma alanine shell otransferase measurement without P-5'-P (enzymatic activiOrdered By: Anali Card on 08-26-2021 ALT No additional P-5'-P [Catalytic activity/Vol] 37 U/L 10-60 [facility] Serum or plasma albumin/glob ulin mass ratioOrdered By: Anali Card on 08-26-2021 Albumin/Globulin [Mass ratio] 1.8 {ratio} [facility] Albumin/Globulin [Mass ratio] 1.6 {ratio} [facility] Serum or plasma alkaline kiesha sphatase measurement (enzymatic activity/volume)Ordered By: Anali Card on 08-26-2021 ALP [Catalytic activity/Vol] 41 U/L 32-92 [facility] Serum or plasma alpha 1 glob ulin measurement by electrophoresis (mass/volume)Ordered By: Anali Card on 08-26-2021 Alpha 1 globulin Elph [Mass/Vol] 0.2 g/dL [facility] Serum or plasma alpha 2 glob ulin measurement by electrophoresis (mass/volume)Ordered By: Anali Card on 08-26-2021 Alpha 2 globulin Elph [Mass/Vol] 0.6 g/dL [facility] Serum or plasma aspartate am inotransferase measurement (enzymatic activity/volume)Ordered By: Anali Card on 08-26-2021 AST [Catalytic activity/Vol] 26 U/L 10-42 [facility] Serum or plasma beta globuli n measurement by electrophoresis (mass/volume)Ordered By: Anali Card on 08-26-2021 Beta globulin Elph [Mass/Vol] 1.0 g/dL [facility] Serum or plasma calcium lenka urement (mass/volume)Ordered By: Anali Card on 08-26-2021 Calcium [Mass/Vol] 9.6 mg/dL 8.2-10.2 [facility] Serum or plasma chloride bob surement (moles/volume)Ordered By: Anali Card on 08-26-2021 Chloride [Moles/Vol] 105 mmol/L 95-114 [facility] Serum or plasma gamma globul in measurement by electrophoresis (mass/volume)Ordered By: Anali Card on 08-26-2021 Gamma globulin Elph [Mass/Vol] 0.7 g/dL [facility] Serum or plasma glucose lenka urement (mass/volume)Ordered By: Anali Card on 08-26-2021 Glucose [Mass/Vol] 108 mg/dL 70-100 [facility] Comment on above: ADA recommended [...] Ab IA Ql See comment [facility] Comment on above: Negative Not infected with HCV, unless recent infection is suspected or other evidence exists to indicate HCV infection. Effective September 02, 2021 HCV Antibody reflex to MALIKA will be made non-orderable. This will affect any Custom Profile that includes 425105 HCV Antibody reflex to MALIKA. [employer] offers order code 155244 HCV Antibody RFX to Quant PCR as an alternative. Performed at: [facility] [address] [id number] Lead Enterprise Architect: Prakash Ballesteros PhD, Phone: [phone] Serum or plasma hepatitis C virus antibody signal/cutoff ratio by immunoassay (relatiOrdered By: Anali Card on 08-26-2021 HCV Ab Signal/Cutoff IA [Rel units/Vol] <0.1 s/co ratio [facility] Serum or plasma potassium me asurement (moles/volume)Ordered By: Anali Card on 08-26-2021 Potassium [Moles/Vol] 4.5 mmol/L 3.5-5.1 [facility] Serum or plasma sodium measu rement (moles/volume)Ordered By: Anali Card on 08-26-2021 Sodium [Moles/Vol] 142 mmol/L 136-146 [facility] Serum or plasma thyroglobuli n antibody assay (units/volume)Ordered By: Anali Card on 08-26-2021 Thyroglobulin Ab Qn [IU]/mL [facility] Comment on above: Thyroglobulin Antibo dy measured by Johnna Makenna Methodology Performed at: [facility] [id number] Lead Enterprise Architect: Prakash Ballesteros PhD, Phone: [phone] Serum or plasma thyroperoxid ase antibody assay (units/volume)Ordered By: Anali Card on 08-26-2021 TPO Ab Qn 12 [IU]/mL [facility] Comment on above: Performed at: [address] [id number] Lead Enterprise Architect: Prakash Ballesteros PhD, Phone: [phone] Serum or plasma total biliru bin measurement (mass/volume)Ordered By: Anali Card on 08-26-2021 Bilirubin [Mass/Vol] 0.5 mg/dL 0.3-1.2 [facility] Serum or plasma total carbon dioxide measurement (moles/volume)Ordered By: Anali Card on 08-26-2021 CO2 [Moles/Vol] 26.9 mmol/L 22.0-30.0 [facility] Serum or plasma urea nitroge n measurement (mass/volume)Ordered By: Anali Card on 08-26-2021 Urea nitrogen [Mass/Vol] 17 mg/dL 9-23 [facility] Specific gravity Auto test s trip (U) [Rel density]Ordered By: Anali Card on 08-26-2021 Specific gravity (U) [Rel density] 1.017 1.001-1.03 0 [facility] Squamous epithelial cells de tection in urine sediment by light microscopyOrdered By: Anali Card on 08-26-2021 Epithelial cells.squamous LM Ql (Urine sed) None seen [HPF] [facility] TSH DL <= 0.005 mIU/L QnOrde red By: Anali Card on 08-26-2021 TSH Qn 1.43 m[IU]/L 0.45-5.33 [facility] TT plasOrdered By: Anali hall on 08-26-2021 Thrombin time Coag (PPP) [Time] 20.6 sec [facility] Thyroxine (T4) free [Mass/vo lume] in Serum or PlasmaOrdered By: Anali Card on 08-26-2021 Free T4 [Mass/Vol] 0.77 ng/dL 0.61-1.12 [facility] Urine alpha 1 globulin/total protein by electrophoresisOrdered By: Anali Card on 08-26-2021 Alpha 1 globulin Elph (U) [Mass fraction] 7.7 % [facility] Urine alpha 2 globulin/total protein ratio by electrophoresisOrdered By: Anali Card on 08-26-2021 Alpha 2 globulin Elph (U) [Mass fraction] 15.7 % [facility] Urine bacteria detection by automated methodOrdered By: Anali Card on 08-26-2021 Bacteria Auto Ql (U) None seen None Seen [facility] Urine beta globulin measurem ent by electrophoresis (mass/volume)Ordered By: Anali Card on 08-26-2021 Beta globulin Elph (U) [Mass/Vol] 37.4 % [facility] Urine clarity by refractomet ry automatedOrdered By: Anali Card on 08-26-2021 Clarity Refractometry automated (U) Clear Clear [facility] Urine glucose measurement by automated test strip (mass/volume)Ordered By: Anali Card on 08-26-2021 Glucose Auto test strip (U) [Mass/Vol] Normal mg/dL Normal [facility] Urine hemoglobin detection b y automated test stripOrdered By: Anali Card on 08-26-2021 Hemoglobin Auto test strip Ql (U) Negative Negative [facility] Urine leukocyte esterase det ection by automated test stripOrdered By: Anali Card on 08-26-2021 Leukocyte esterase Auto test strip Ql (U) Negative Negative [facility] Urobilinogen Auto test strip (U) [Mass/Vol]Ordered By: Anali Card on 08-26-2021 Urobilinogen (U) [Mass/Vol] Normal mg/dL Normal [facility] aPTT.lupus sensitive (LA scr een)Ordered By: Anali Card on 08-26-2021 aPTT.lupus sensitive Coag (PPP) [Time] 35.3 sec [facility] aPTT.lupus sensitive/aPTT.scotty pus sensitive W excess phospholipid (screen to confirm raOrdered By: Anali Card on 08-26-2021 aPTT.lupus sensitive/aPTT.lupus sensitive W excess phospholipid Coag (PPP) [Ratio] 1.04 Ratio [facility] pH Auto test strip (U)Ordere d By: Anali Card on 08-26-2021 pH (U) 6.0 [pH] 5.0-9.0 [facility] Vital Signs Date Time Vital Sign Value Performing Clinician Facility 10-11-2024 08:050400 Body height 172.[address] 10-11-2024 08:05-0400 Body mass index (BMI) [Ratio] 34.06 kg/m2 [address] 10-11-2024 08:05-0400 Body weight 101.[address] 10-11-2024 08:05-0400 Diastolic blood pressure 76 mm[Hg] [address] 10-11-2024 08:05-0400 Systolic blood pressure 120 mm[Hg] [address] 08-31-2024 20:37-0400 Diastolic blood pressure 84 mm[Hg] Ciarra Monroy MD Work Phone: [facility] 08-31-2024 20:37-0400 Heart rate 65 /min Ciarra Monroy MD Work Phone: [facility] 08-31-2024 20:37-0400 Respiratory rate 18 /min Ciarra Monroy MD Work Phone: [facility] 08-31-2024 20:37-0400 SaO2% (BldA) [Mass fraction] 98 % Ciarra Monroy MD Work Phone: [facility] 08-31-2024 20:37-0400 Systolic blood pressure 149 mm[Hg] Ciarra Monroy MD Work Phone: [facility] 08-31-2024 19:00-0400 Body temperature 98.6 [degF] Ciarra Monroy MD Work Phone: [facility] 08-31-2024 15:48-0400 Body height 175.26 cm Ciarra oMnroy MD Work Phone: [facility] 08-31-2024 15:48-0400 Body weight 103.3 kg Ciarra Monroy MD Work Phone: [facility] 08-10-2024 10:06-0400 Diastolic blood pressure 76 mm[Hg] Rajeev Wong MD Work Phone: [facility] 08-10-2024 10:06-0400 Systolic blood pressure 116 mm[Hg] Rajeev Wong MD Work Phone: [facility] 08-10-2024 10:03-0400 Body height 172.7 cm Rajeev Wong MD Work Phone: [facility] 08-10-2024 10:03-0400 Body mass index (BMI) [Ratio] 34.06 kg/m2 Rajeev Wong MD Work Phone: [facility] 08-10-2024 10:03-0400 Body weight 101.61 kg Rajeev Wong MD Work Phone: [facility] 08-10-2024 10:03-0400 Heart rate 72 /min Rajeev Wong MD Work Phone: [facility] 05-31-2024 09:36-0500 Body weight 103.87 kg Noah Deepak DO Work Phone: [facility] 05-31-2024 09:36-0500 Diastolic blood pressure 90 mm[Hg] Noah Deepak DO Work Phone: [facility] 05-31-2024 09:36-0500 Systolic blood pressure 150 mm[Hg] Noah Deepak DO Work Phone: [facility] 03-08-2024 14:21-0500 Blood Pressure Location Oj HIDALGOL [facility] 03-08-2024 14:21-0500 Diastolic blood pressure 72 mm[Hg] Oj HIDALGOL [facility] 03-08-2024 14:21-0500 Heart rate 72 /min Oj HIDALGOL [facility] 03-08-2024 14:21-0500 Respiratory rate 16 /min Oj NILL [facility] 03-08-2024 14:21-0500 Systolic blood pressure 112 mm[Hg] Oj HIDALGOL [facility] Encounters Encounter Date Encounter Type Care Provider Facility Start: 10-11-2024 End: 10-11-2024 ambulatory [facility] Start: 10-11-2024 End: 10-11-2024 Subsequent hospital visit by physician Orin Donnelly Echo/Vasc Room 2 [facility] Comment on above: Abnormal EKG; Family history of MS (myocardial infarction); PVC (premature ventricular contraction) Start: 10-06-2024 End: 10-06-2024 ambulatory RAJEEV Alvarez [facility] Start: 10-06-2024 End: 10-06-2024 Subsequent hospital visit by physician Orin Lechuga 1 [facility] Comment on above: Abnormal EKG; Family history of MS (myocardial infarction) Start: 08-31-2024 End: 08-31-2024 Emergency department patient visit Ciarra Monroy MD Work Phone: [facility] Work Phone: Start: 08-10-2024 End: 08-10-2024 ambulatory RAJEEV WONG [facility] Start: 08-10-2024 End: 08-10-2024 Office consultation new/estab patient 60 min Rajeev Wong MD Work Phone: [facility] Comment on above: Abnormal EKG; Family history of MS (myocardial infarction); Essential hypertension; PVC (premature ventricular contraction); Deep vein thrombosis (DVT) of other vein of left lower extremity, unspecified chronicity; Hyperlipidemia, unspecified hyperlipidemia type; Pre-diabetes; BMI 34.0-34.9,adult; Former smoker Start: 05-31-2024 End: 05-31-2024 Bamboo flowsheet Noah Deepak DO Work Phone: [facility] Start: 05-31-2024 End: 06-08-2024 Bamboo flowsheet Noah Deepak DO Work Phone: [facility] Start: 05-31-2024 End: 06-08-2024 Clinisync Result Encounter Noah Deepak DO Work Phone: [facility] External Department Unsolicited Start: 05-31-2024 End: 05-31-2024 ambulatory NOAH DEEPAK Not Available Start: 05-31-2024 End: 05-31-2024 Patient encounter procedure Noah Deepak DO Work Phone: [facility] Start: 05-31-2024 End: 05-31-2024 Periodic preventive med est patient 40-64yrs Noah Deepak DO Work Phone: [facility] Comment on above: Well woman exam with routine gynecological exam; Encounter for screening mammogram for malignant neoplasm of breast; Insulin resistance; History of mitral valve prolapse; H/O blood clots; Blood pressure elevated without history of HTN; Skin yeast infection Start: 04-06-2024 End: 04-06-2024 ambulatory Oj GONZALEZ Facility:CD:[id number] Start: 03-08-2024 End: 03-08-2024 ambulatory Ciarra Irving Facility: An[facility] Start: 03-08-2024 End: 03-08-2024 Patient encounter procedure Oj GONZALEZ [facility] Start: 02-09-2024 ambulatory Ciarra Monroy Facility:[facility] Start: 05-25-2023 End: 05-25-2023 ambulatory Noah Rinaldizio Work Phone: [facility] Work Phone: Start: 05-25-2023 End: 05-25-2023 Departed Referred Noah Deepak Work Phone: [facility]-LAB [facility] Start: 02-12-2023 End: 02-12-2023 ambulatory MD Ciarra Monroy Work Phone: [facility] Work Phone: Start: 02-12-2023 End: 02-12-2023 Patient encounter procedure MD Ciarra Monroy Work Phone: [facility]Lab [address] Work Phone: Start: 06-06-2022 End: 06-07-[address] ANALI CARD Facility:[facility] Start: 12-25-2021 End: 12-26-[address] ANALI CARD Facility:[facility] Start: 09-05-2021 End: 09-05-2021 Patient encounter procedure MD Ciarra Monroy Work Phone: [facility]-XRay [address] Start: 08-26-2021 End: 08-26-2021 Patient encounter procedure MD Ciarra Monroy Work Phone: [facility] [address] Start: 08-22-2021 End: 08-22-[address] LUCERO MONGE Facility:[facility] Procedures Date Procedure Procedure Detail Performing Clinician Start: 10-11-2024 Echo tthrc r-t 2d w/ wom-mode compl spec&colr d Rajeev Wong MD Work Phone: Start: 08-31-2024 CT angiography of thorax Ciarra Monroy MD Work Phone: Start: 08-31-2024 Plain chest X-ray Charles Monroy MD Work Phone: Start: 08-10-2024 Ecg routine ecg w/le ast 12 lds w/i&r Rajeev Wong MD Work Phone: Start: 05-31-2024 IGP,APTIMA HPV,AGE GDLN Noah Deepak DO Work Phone: Start: 05-31-2024 Microscopic observat ion [Identifier] in Cervix by Cyto stain Rajeev Wong MD Work Phone: Start: 04-06-2024 Colonoscopy Rajeev comer MD Work Phone: Start: 06-12-2023 Mammography Noah Fazi o DO Work Phone: Start: 05-25-2023 Microscopic observat ion [Identifier] in Cervix by Cyto stain Noah Piedrao DO Work Phone: Start: 09-05-2021 Plain X-ray of bilat eral wrists MD Ciarra Monroy Work Phone: Start: 09-05-2021 Plain X-ray of bilat eral hands MD Ciarra Monroy Work Phone: Laparoscopic cholecystectomy Oj GONZALEZ Tonsillectomy Oj GONZALEZ Plan of Treatment Date Care Activity Detail Author Start: 04-06-2034 Screening for malignant neoplasm of colon [facility] Start: 02-16-2034 DTaP/Tdap/Td Vaccines (2 - Td or Tdap) DTaP/Tdap/Td Vaccines (2 - Td or Tdap) [facility] Start: 05-31-2027 Screening for malignant neoplasm of cervix [facility] Start: 12-04-2026 Screening for malignant neoplasm of colon [facility] Start: 06-06-2025 End: 06-06-2025 Patient encounter procedure 06/06/2025 9:00 AM EST Office Visit [facility] [address] [place] [id number] Noah Sotelo, DO [address] [place] [address] [facility] Start: 01-02-2025 Influenza vaccination Influenza Vaccine (Season Ended) [facility] Start: 11-09-2024 End: 08-10-2025 Lipid 1996 panel - Serum or Plasma Lipid Panel Lab Routine Hyperlipidemia, unspecified hyperlipidemia type Expected: 11/09/2024, Expires: 08/10/2025 [facility] Work Phone: Comment on above: Expected: 11/09/2024, Expires: Start: 11-01-2024 End: 11-01-2024 Patient encounter procedure 11/01/2024 9:40 AM EDT Office Visit [address] [place] [id number] Rajeev Wong MD [address] [facility] [address] [place] [address] [facility] Start: 10-11-2024 End: 10-11-2024 Patient encounter procedure 10/11/2024 7:45 AM EDT Appointment [id number] [place] [phone] [facility] Start: 08-31-2024 [facility] Start: 08-10-2024 End: 08-10-2025 Alanine aminotransferase [Enzymatic activity/volume] in Serum or Plasma by With P-5'-P Alanine Aminotransferase Lab Routine Hyperlipidemia, unspecified hyperlipidemia type Expected: 08/10/2024 (Approximate), Expires: 08/10/2025 [facility] Work Phone: Comment on above: Expected: 08/10/2024 (Approximate), Expi res: 08/10/2025 Start: 08-10-2024 End: 08-10-2025 Aspartate aminotransferase [Enzymatic activity/volume] in Serum or Plasma by With P-5'-P Aspartate Aminotransferase Lab Routine Hyperlipidemia, unspecified hyperlipidemia type Expected: 08/10/2024 (Approximate), Expires: 08/10/2025 [facility] Work Phone: Comment on above: Expected: 08/10/2024 (Approximate), Expi res: 08/10/2025 Start: 08-10-2024 End: 08-10-2025 CT for calcium scoring WO contrast and CTA W contrast IV Heart and coronary arteries CT cardiac scoring wo IV contrast Imaging Routine Abnormal EKG Family history of MS (myocardial infarction) Expected: 08/10/2024 (Approximate), Expires: 08/10/2025 [facility] Work Phone: Comment on above: Expected: 08/10/2024 (Approximate), Expi res: 08/10/2025 Start: 08-10-2024 End: 08-10-2025 F5 gene [id number] [Presence] in Blood or Tissue by Molecular genetics method Factor 5 leiden Lab Routine Deep vein thrombosis (DVT) of other vein of left lower extremity, unspecified chronicity Expected: 08/10/2024 (Approximate), Expires: 08/10/2025 [facility] Service Area Work Phone: Comment on above: Expected: 08/10/2024 (Approximate), Expi res: 08/10/2025 Start: 08-10-2024 End: 08-10-2026 US Heart Transthoracic Transthoracic Echo Complete Echocardiography Routine Abnormal EKG Family history of MS (myocardial infarction) PVC (premature ventricular contraction) Expected: 08/10/2024 (Approximate), Expires: 08/10/2026 [facility] Work Phone: Comment on above: Expected: 08/10/2024 (Approximate), Expi res: 08/10/2026 Start: 06-12-2024 Screening for malignant neoplasm of breast Mammogram [facility] Start: 05-31-2024 End: 07-29-2025 MG Breast - bilateral Screening Bilateral screening mammogram Imaging Routine Encounter for screening mammogram for malignant neoplasm of breast Expected: 05/31/2024, Expires: 07/29/2025 [facility] Work Phone: Comment on above: Expected: 05/31/2024, Expires: Start: 05-25-2024 Screening for malignant neoplasm of cervix [facility] Start: 01-03-2024 COVID-19 Vaccine ( season) COVID-19 Vaccine ( season) [facility] Start: 01-03-2024 Influenza vaccination Influenza Vaccine (#1) [facility] Start: 2023 RSV High Risk: (Elderly (60+) or Population) (1 - Risk 60-74 years 1-dose series) RSV High Risk: (Elderly (60+) or Population) (1 - Risk 60-74 years 1-dose series) [facility] Start: 2013 Zoster Vaccines (1 of 2) Zoster Vaccines (1 of 2) [facility] Start: 2003 Screening for malignant neoplasm of breast Mammogram [facility] Start: 1984 Screening for malignant neoplasm of cervix HPV/Cotest [facility] Start: 1982 Pneumococcal vaccination Pneumococcal Vaccine (1 of 2 - PCV) [facility] Start: 1981 Diabetes mellitus screening Diabetes Screening [facility] Start: 1981 Hepatitis C screening Hepatitis C Screening [facility] Start: 1963 HIV screening HIV Screening [facility] Start: 1963 Lipid panel Lipid Panel [facility] Start: 1963 Screening for malignant neoplasm of colon [facility] Start: 1963 Yearly Adult Physical Yearly Adult Physical [facility] 24 hour urine measurement [facility] Work Phone: Albumin [Mass/volume ] in Serum or Plasma [facility] Work Phone: Albumin/Globulin ratio [facility] Work Phone: Angiotensin converti ng enzyme [Enzymatic activity/volume] in Serum or Plasma [facility] Work Phone: aPTT.lupus sensitive (LA screen) [facility] Work Phone: aPTT.lupus sensitive W excess phospholipid actual/Normal (normalized LA confirm) [facility] Work Phone: aPTT.lupus sensitive/aPTT.lupus sensitive W excess phospholipid (screen to confirm ra [facility] Work Phone: End: 10-06-2024 CT for calcium scoring WO contrast and CTA W contrast IV Heart and coronary arteries [facility] Service Area Work Phone: Comment on above: Once for 1 Occurrences starting 10/07/19 25 until 10/06/2024 dRVVT (LA screen) [facility] Work Phone: Electrophoresis: [id number] [facility] Work Phone: Electrophoresis: [id number] [facility] Work Phone: Electrophoresis: beta-globulin [facility] Work Phone: Electrophoresis: bailey ma globulin [facility] Work Phone: Globulin [Mass/volum e] in Serum [facility] Work Phone: Hepatitis A virus antibody, IgM type [facility] Hepatitis B core ant ibody measurement [facility] Work Phone: Hepatitis B core ant ibody measurement, IgM type [facility] Hepatitis B virus byers rface Ab [Presence] in Serum [facility] Work Phone: Hepatitis B virus byers rface Ag [Presence] in Serum or Plasma by Immunoassay [facility] Work Phone: Hepatitis B virus byers rface Ag [Presence] in Serum or Plasma by Immunoassay [facility] Hepatitis C virus Ab Signal/Cutoff in Serum or Plasma by Immunoassay [facility] Work Phone: Hepatitis C virus Ig G Ab [Presence] in Serum or Plasma by Immunoassay [facility] Hepatitis C virus RN A [log units/volume] (viral load) in Serum or Plasma by MALIKA with probe detection [facility] Hepatitis C virus RN A [Presence] in Serum or Plasma by MALIKA with probe detection [facility] Work Phone: Hepatitis C virus RN A [Units/volume] (viral load) in Serum or Plasma by MALIKA with probe detection [facility] IgA [Mass/volume] in Serum or Plasma [facility] Work Phone: IgG [Mass/volume] in Serum or Plasma [facility] Work Phone: IgM [Mass/volume] in Serum or Plasma [facility] Work Phone: Immunofixation for Urine [facility] Work Phone: Lupus anticoagulant [Interpretation] in Platelet poor plasma [facility] Work Phone: Measurement of monoc lonal protein concentration [facility] Work Phone: Patient Education Acute pancreat itis Clear liquid diet Pancreatitis - Discharge instructions [facility] Work Phone: Patient referral [facility] Work Phone: Protein [Mass/volume ] in Serum or Plasma [facility] Work Phone: Protein [Mass/volume ] in Urine [facility] Work Phone: Reagin Ab [Presence] in Serum by RPR [facility] Work Phone: Serum immunofixation [facility] Work Phone: THIN PREP TIS PAP AN D HR HPV DNA THIN PREP TIS PAP AND HR HPV DNA Pathology and Cytology Routine Well woman exam with routine gynecological exam Ordered: 05/31/2024 [facility] Comment on above: Ordered: 05/31/2024 Thrombin time [facility] Work Phone: Thyroglobulin Ab [Units/volume] in Serum or Plasma [facility] Work Phone: Thyroperoxidase Ab [Units/volume] in Serum or Plasma [facility] Work Phone: Immunizations Immunization Date Immunization Notes Care Provider Fa annie 05-30-2020 COVID-19 mRNA-1273 (Moderna) MD Ciarra Monroy Work Phone: [facility] 05-02-2020 COVID-19 mRNA-1273 (Modernlily) MD Ciarra Monroy Work Phone: [facility] 02-12-2015 influenza virus vaccine, unspecified formulation Noah Sotelo Work Phone: [facility] Payers Date Payer Category Payer Self-pay [id number] 2021 [facility] [place] [id number] 2021 [facility] [id number] 1965 Unknown [id number]. [id number] 1963 Unknown [id number] [id number]. 2.593 1963 Unknown [id number] [id number]. 2.593 1963 Unknown [id number] [id number]. 2.727 1963 Unknown [id number] [id number]. 2.727 1963 Unknown [id number] [id number]. 2.1259 1963 Unknown [id number] [id number]. 2.1246 1963 Unknown [id number] [id number]. 2.1246 1963 Unknown [id number] [id number]. 2.1244 1959 Unknown [id number] Unknown [employer] [id number] Unknown [id number] [id number] Social History Date Type Detail Facility Start: 09-26-2020 End: 08-31-2024 Tobacco smoking status NHIS Never smoked tobacco (finding) [facility] Start: 1965 Sex Assigned At Female F [facility] Tobacco smoking status Never Lyn Sierra [facility] Start: 05-25-2023 End: 08-10-2024 Sex Assigned At Female Ricci Carballo [facility] Start: 05-25-2023 End: 08-10-2024 Alcoholic beverage intake Lifetime non-drinker (finding) [facility] Start: 05-25-2023 End: 08-10-2024 History of Social function [facility] Start: 1965 Sex assigned at Not on file N [facility] Start: 08-10-2024 [facility] Work Phone: History of tobacco use [facility] of tobacco use [facility]arette [facility]: Start: 08-10-2024 Tobacco use and exposure Smokeless tobacco non-user [facility] Work Phone: Start: 07-31-2024 End: 10-11-2024 Exposure to SARS-CoV-2 (event) Not sure [facility] Start: 08-31-2024 Sex Female (finding) [facility] Functional Status Date Assessment Result Facility 03-08-2024 Functional Status N/A [facility] Clinical Notes 03-08-2024 to 08-31-2024 Rajeev Wong MD - 08/10/2024 9:40 AM EDTPatient Nikia Faustin LPN - 05/31/2024 9:10 AM EST Note Date & Type Note Facility 08-31-2024 Radiology Diagnostic study note [facility] Main [place] [id number] CT Scan Report Signed Patient: Izabella Ogden MR#: [id number] : 1965 Acct:[id number] Age/Sex: 59 / F ADM Date: 5 Loc: ER Room: Type: PRE ER Attending Dr: Copies to: Fly Conti DO~ Ordering Provider: Fly Conti DO Date of [...] is normal in caliber. No pericardial effusion. Nolymphadenopathy. The esophagus is grossly unremarkable. Lungs: No [...] Ferrer M.D. 08/31/2024 6:05 PM Dictation Location: [place] [address] Transcribed By: SORIN 08/31/241804 Dictated By: Germán Ferrer MD 08/31/241800 Signed By: 08/31/241804 [facility] Work Phone: 08-10-2024 History of Present illness Narrative Cardiology Consultation- New Consult Reason for referral: Abnormal stress test Chief Complaint Patient presents with [facility] Abnormal stress test HPI: Izabella Ogden is a 59 y.o. female who was referred to me for abnormal stress test that was done at [facility]. The patient has no cardiac history and recently was found to have mild hypertension and was started on lisinopril. She reported symptoms of palpitations but no syncope or near syncope. She had no orthopnea PND. She had an EKG which showed septal Q waves for which a treadmill stress test was done revealing nonspecific ST-T changes and because of that she followed that with a nuclear stress test which was completely normal ejection fraction 85%. Patient has family history of premature CAD in her father side of the family. She was was told when she was 30 years ago that she had mitral prolapse but there has been no recent echocardiograms. She reports no chest pain on exertion. Her EKG revealed sinus rhythm with septal Q waves. Her blood pressure is under control, heart sounds were normal, lungs were clear, she has intermittent lower extremity edema when she stands up for a long time and the findings are suggestive of lymphedema. Her vascular examination was normal. She was started recently on metformin she has class I obesity. No thyroid disease and no cardiac arrhythmias of significance. Assessment/recommendations: 1-borderline abnormal treadmill stress test with nonspecific ST-T changes but with normal nuclear stress test. The findings are reassuring and Q waves noted on the resting EKG are insignificant. The patient comes from family with significant coronary heart disease and because of this and because of elevated LDL cholesterol over 200 mg/dL she was advised to have coronary calcium score to ensure there is no underlying atherosclerosis. She is currently on aspirin and low intensity statin. She will continue present medication until after the calcium score after which I may adjust the dose of statin. Lipid profile is ordered for follow-up. Patient was shown demonstration on electronic screens for pathophysiology of atherosclerosis. 2-history of DVT that seems to be present in other family members raising concern for genetic disorder and therefore I advised patient to get factor V Leiden, currently on aspirin which will be left until the testing is back. The events of DVT were unprovoked 3-essential hypertension, currently on lisinopril under control 4-severe elevation of LDL cholesterol over 200 mg/dL. Presently on low intensity statin. Will follow lipid profile and based on that and on the calcium score decide on the dose and the target of LDL cholesterol. Dietary discretion were discussed with the patient 5-history of mitral prolapse which is unconfirmed with history of PVCs, echocardiogram therefore is scheduled 6- class I obesity, educated patient on the need for modifying her lifestyle to bring her weight under control and minimize her cardiovascular risks 7-abnormal EKG showing septal myocardial infarction which is not supported by the nuclear stress test. 8-prediabetes on metformin, weight loss and exercise were strongly recommended hoping that she does not need to stay on medications Past Medical History: She has no past medical history on file. Surgical History: She has a past surgical history that includes Cholecystectomy; Colonoscopy; and Tonsillectomy. Family History: Family History Problem Relation Name Age of Onset Mitral valve prolapse Mother Other (prediabetes) Mother Heart disease Father Deep vein thrombosis Father Breast cancer Sister Diabetes Sister No Known Problems Brother Social History: Social History Tobacco Use Smoking status: Former Types: Cigarettes Smokeless tobacco: Never Substance Use Topics Alcohol use: Never Allergies: Patient has no known allergies. Current Medications: Current Outpatient Medications: aspirin 81 mg EC tablet, Take 1 tablet (81 mg) by mouth once daily., Disp: , Rfl: diclofenac sodium (Voltaren XR) 100 mg 24 hr tablet, Take 1 tablet (100 mg) by mouth if needed., Disp: , Rfl: latanoprost (Xalatan) 0.005 % ophthalmic solution, Administer 1 drop into both eyes once daily at bedtime., Disp: , Rfl: lisinopril 10 mg tablet, Take 1 tablet (10 mg) by mouth once daily., Disp: , Rfl: metFORMIN XR 500 mg 24 hr tablet, Take 1 tablet (500 mg) by mouth once daily in the evening. Take with meals., Disp: , Rfl: rosuvastatin (Crestor) 5 mg tablet, Take 1 tablet (5 mg) by mouth early in the morning.., Disp: , Rfl: tiZANidine (Zanaflex) 4 mg tablet, Take 1 tablet (4 mg) by mouth if needed., Disp: , Rfl: traZODone (Desyrel) 50 mg tablet, Take 1 tablet (50 mg) by mouth once daily at bedtime., Disp: , Rfl: Vitals: Vitals: 08/10/24 1003 08/10/24 1006 BP: 122/82 116/76 BP Location: Left arm Right arm Patient Position: Sitting Sitting Pulse: 72 Weight: 102 kg (224 lb) Height: 1.727 m (5' 8 ) EKG done in office today Review of Systems Cardiovascular: Positive for chest pain, dyspnea on exertion and palpitations. All other systems reviewed and are negative. Objective Physical Exam Constitutional: Appearance: Normal appearance. HENT: Nose: Nose normal. Neck: Vascular: No carotid bruit. Cardiovascular: Rate and Rhythm: Normal rate. Pulses: Normal pulses. Heart sounds: Normal heart sounds. Pulmonary: Effort: Pulmonary effort is normal. Abdominal: General: Bowel sounds are normal. Palpations: Abdomen is soft. Musculoskeletal: General: Normal range of motion. Cervical back: Normal range of motion. Right lower leg: No edema. Left lower leg: No edema. Skin: General: Skin is warm and dry. Neurological: General: No focal deficit present. Mental Status: She is alert. Psychiatric: Mood and Affect: Mood normal. Behavior: Behavior normal. Thought Content: Thought content normal. Judgment: Judgment normal. Assessment and Plan: 1. Abnormal EKG ECG 12 Lead Follow Up In Cardiology Transthoracic Echo Complete CT cardiac scoring wo IV contrast 2. Family history of MS (myocardial infarction) ECG 12 Lead Transthoracic Echo Complete CT cardiac scoring wo IV contrast 3. Essential hypertension 4. PVC (premature ventricular contraction) Transthoracic Echo Complete 5. Deep vein thrombosis (DVT) of other vein of left lower extremity, unspecified chronicity Factor 5 leiden Factor 5 leiden 6. Hyperlipidemia, unspecified hyperlipidemia type Lipid Panel Aspartate Aminotransferase Alanine Aminotransferase Lipid Panel Aspartate Aminotransferase Alanine Aminotransferase 7. Pre-diabetes 8. BMI 34.0-34.9,adult 9. Former smoker Scribe Attestation By signing my name below, Kandice Weaver LPN, Scribe attest that this documentation has been prepared under the direction and in the presence of Rajeev Wong MD. Provider Attestation - Scribe documentation All medical record entries made by the Scribe were at my direction and personally dictated by me. I have reviewed the chart and agree that the record accurately reflects my personal performance of the history, physical exam, discussion and plan. documented in this encounter [facility] Work Phone: 08-10-2024 Instructions Kandice Sosa LPN - 08/10/2024 9:40 AM EDT Please bring all medicines, vitamins, and herbal supplements with you when you come to the office. Prescriptions will not be filled unless you are compliant with your follow up appointments or have a follow up appointment scheduled as per instruction of your physician. Refills should be requested at the time of your visit. BMI was above normal measurement. Current weight: 102 kg (224 lb) Weight change since last visit (-) denotes wt loss 224 lbs Weight loss needed to achieve BMI 25: 59.9 Lbs Weight loss needed to achieve BMI 30: 27.1 Lbs Provided instructions on dietary changes. Echo Calcium score Lipid lab 2 months Factor 5 lab any time. Follow up documented in this encounter [facility] Work Phone: 05-31-2024 History of Present illness Narrative Reason for Appointment: Patient ID: Izabella Ogden is a 58 y.o. female who [...] nursing note reviewed. Exam conducted with a box worker present. Vitals: There is no height or [...] resistance. Pt to be referred to [facility] cardiology. Pt being started on lisinopril(elevated BP), metformin(insulin resistance), and diflucan(for yeast) Orders Placed This Encounter Procedures Bilateral screening mammogram Follow Up: Patient is to return in one year for annual unless needed otherwise. Documented by Cherise Faustin LPN on behalf of: Noah Sotelo DO documented in this encounter [facility] 03-08-2024 Note General Surgery Offi ce/Clinic Note [...] Recorded SARS-CoV-2 (COVID-19) mRNA-1273 vaccine 05/02/2020 Recorded [facility] Comment on above: Result Comment: Elec tronically Signed By: CARLOS ROLDAN, Oj Moore\Date and Time Signed: 03/08/24 14:56 EST Evaluation + Plan note No data available for this section [facility] General Surgery [place] Evaluation note No assessment inform ation available [facility] Work Phone: Evaluation note Diagnosis Well woman exam with routine gynecological exam Routine gynecological examination Encounter for screening mammogram for malignant neoplasm of breast Insulin resistance Other abnormal glucose History of mitral valve prolapse H/O blood clots Blood pressure elevated without history of HTN Skin yeast infection Candidiasis of skin and nails documented in this encounter [facility] HealthcareEvaluation note* Diagnosis Abnormal EKG Nonspecific abnormal electrocardiogram (ECG) (EKG) Family history of MS (myocardial infarction) Family history of ischemic heart disease Essential hypertension Unspecified essential hypertension PVC (premature ventricular contraction) Other premature beats Deep vein thrombosis (DVT) of other vein of left lower extremity, unspecified chronicity Hyperlipidemia, unspecified hyperlipidemia type Pre-diabetes Other abnormal glucose BMI 34.0-34.9,adult Former smoker Personal history of tobacco use, presenting hazards to health documented in this encounter [facility] Work Phone: Evaluation note* Diagnosis Abnormal EKG Nonspecific abnormal electrocardiogram (ECG) (EKG) Family history of MS (myocardial infarction) Family history of ischemic heart disease PVC (premature ventricular contraction) Other premature beats documented in this encounter [facility] Work Phone: Evaluation note* Diagnosis Abnormal EKG Nonspecific abnormal electrocardiogram (ECG) (EKG) Family history of MS (myocardial infarction) Family history of ischemic heart disease documented in this encounter [facility] Work Phone: Hospital Discharge instructions No data available for this section [facility] Hospital Discharge instructions Additional Instructions If your symptoms return/worsen or you develop any further concerns or symptoms please see your doctor or return to the emergency department immediately. It is imperative that you go over today's visit and all results with your primary care provider. As we discussed you must follow-up closely to make sure your laboratory studies are improving and your pain is improving. Please hold your simvastatin until you are evaluated by your primary care provider.[facility] Work Phone: Progress note No data available for this section [facility] Reason for visit Narrative* CV Imaging (Routine) - Authorized Specialty Diagnoses / Procedures Referred By Rio arnold Referred To Contact Cardiology Diagnoses Abnormal EKG Family history of MS (myocardial infarction) PVC (premature ventricular contraction) Procedures Transthoracic Echo Complete SC ECHO TTHRC R-T 2D W/WOM-MODE COMPL SPEC&COLR D Rajeev Wong MD [address] [place] [address] Phone: tel: fax: Referral ID Status Reason Start Date Expiration Date Visits Requested Visits Authorized [id number] Authorized Perform Procedure 08/10/2024 08/10/2025 1 1 [facility] Work Phone: Reason for visit Narrative* Imaging (Routine) - Pending Review Specialty Diagnoses / Procedures Referred By Rio arnold Referred To Contact Radiology Diagnoses Abnormal EKG Family history of MS (myocardial infarction) Procedures CT cardiac scoring wo IV contrast Rajeev Wong MD [address] [place] [address] Phone: tel: fax: Referral ID Status Reason Start Date Expiration Date Visits Requested Visits Authorized [id number] Pending Review Perform Procedure 08/10/2024 08/10/2025 1 1 [facility] Work Phone: Family History No Family History Records Found Relationship Condition Age at Onset Recorded Date/T honey father Coronary artery disease Unknown Not Specified Diverticulitis of colon Unknown Mitral valve prolapse Unknown Relationship Condition Age at Onset Recorded Date/T honey father Coronary artery disease Unknown mother Diverticulitis of colon Unknown Mitral valve prolapse Unknown father Unknown Heart disease Unknown family member Unknown grandparent Heart disease Unknown Advance Directives No Advanced Directives Records Found Advance Directive Response Recorded Date/ Time Advance Directives No September 24 9:13am Advance Directive Response Recorded Date/ Time Advance Directives No September 24 8:13am Chief Complaint and Reason for Visit Chief Complaint labs Chief Complaint Unknown Chief Complaint Admit Date cp August 31, 2024 3:2 8pm Summary Purpose Additional Source Comments Care Teams (unrecognized sec tion and content) Team Status: Inactive Member Role Status Dates Ciarra Monroy MD Primary Care Provider Active Vishal Card MD Attending Provider Active Team Status: Active Member Role Status Dates Ciarra Monroy MD Primary Care Provider Active Team Status: Inactive Member Role Status Dates Ciarra Monroy MD Primary Care Provider Active Anali Card MD Attending Provider Active Team Status: Inactive Member Role Status Dates Noah Sotelo Attending Provider Active Start: Roman howard 2023 End: May 25, 2023 Biology Tutor Relationship Specialty Start Date End Date Ciarra Monroy MD [address] [place] [address] PCP - General Family Medicine 05/25/23 Biology Tutor Relationship Specialty Start Date End Date Ciarra Monroy MD [address] [place] [address] PCP - General Family Medicine 05/25/23 Biology Tutor Relationship Specialty Start Date End Date Ciarra Monroy MD [address] [place] [address] PCP - General Family Medicine 05/25/23 Biology Tutor Relationship Specialty Start Date End Date Ciarra Monroy MD [address] [place] [address] PCP - General Family Medicine 07/28/24 Team Status: Inactive Member Role Status Dates Ciarra Monroy MD Primary Care Provider Active Start: August 31, 2024 End: August 31, 2024 Fly Conti DO Emergency Provider Active Start: August 31, 2024 End: August 31, 2024 Biology Tutor Relationship Specialty Start Date End Date Ciarra Monroy MD [address] [place] [address] PCP - General Family Medicine 07/28/24 Biology Tutor Relationship Specialty Start Date End Date Ciarra Monroy MD [address] [place] [address] PCP - General Family Medicine 07/28/24 Goals (unrecognized section and content) Goals may be documented in a n alternate sectionGoals may be documented in an alternate sectionGoals may be documented in an alternate sectionGoals may be documented in an alternate section No data available for this sectionGoals may be documented in an alternate section INFORMATION SOURCE (unrecogn ized section and content) DATE CREATED AUTHOR 06/09/2022 [facility] DATE CREATED AUTHOR AUTHOR'S ORGANIZ ATION 04/14/[address] [facility] DATE CREATED AUTHOR AUTHOR'S ORGANIZ ATION 06/01/2024 [facility] DATE CREATED AUTHOR AUTHOR'S ORGANIZ ATION 09/18/2024 [facility] DATE CREATED AUTHOR AUTHOR'S ORGANIZ ATION 10/15/2024 [facility] DATE CREATED AUTHOR AUTHOR'S ORGANIZ ATION 10/18/2024 [facility] Reason for Visit (unrecogniz ed section and content) Reason Comments Well Women Visit Reason Comments Establish Care Abnormal stress test Specialty Diagnoses / Procedures Referred By Contac t Referred To Contact Diagnoses Abnormal EKG Family history of MS (myocardial infarction) Procedures ECG 12 Lead Rajeev Wong MD [address] [facility] [address] [address] Phone: tel: fax: Referral ID Status Reason Start Date Expiration Date V isits Requested Visits Authorized [id number] Authorized 08/10/2024 08/10/2025 1 1 FOR RECORDS PERTAINING TO PATIENTS WHO ARE [...] BE BASED ON THE PRIMARY CLINICAL RECORDS. [employer] provides no warranty or guarantee of the accuracy or completeness of information in this document.
[2024-11-17 08:46] LABS: Cholesterol 238 mg/dL (<=200); HDL Cholesterol 62 mg/dL (40-60); Triglycerides 105 mg/dL (<=150); VLDL CHOLESTEROL 21.0 mg/dL
== END 2024-11-17 07:19 | disposition home or self-care (01) ==
LOC: LAB 07:21
PROVIDERS: PCP Family Medicine; Visit Provider Internal Medicine Cardiovascular Disease
DX: I82.492 Acute embolism and thrombosis of other specified deep vein of left lower extremity (principal)
CPT/HCPCS: 36415; 80061; 81241

== ENCOUNTER 2024-11-17 07:27 | Outpatient (OUT) | payer BC, SELFPAY ==
--- OUTSIDE RECORDS SUMMARY | 2024-09-06 08:48 | XMS_ITS ---
Author Organization [facility] [place] Address [address] [place] [address] Care Team Providers Care Basket Bottom Machine Operator Name Role Phone Milton Monroy Primary Care Provider [phone] REASON FOR VISIT us results Encounters Encounter Location Date Provider Diagnosis [facility] [address] [place] [address] 09/06/2024 Milton Monroy Pancreatic cyst K86. 2 Assessments Encounter Date Diagnosis (ICD Code) Assessment Notes Treatment Notes Treatment Clinical Notes Section Notes 09/06/2024 Pancreatic cyst (ICD-10 - K86.2) Plan Of Treatment Pending Test Test Name Order Date MRI Pancreas w/ + w/o contrast MRCP Abdomen w/o contrast 09/06/2024 Progress Notes * Jolanta LOUBabitaOB:1965 (59 yo F)Acc No.[id number]:09/06/2024 Patient: Izabella ALMEIDA :1965 A ge:59 Y S ex:Female Address:[address] [place] [id number] Subjective: * Chief Complaints: * U s results * Medical History: * Surgical History: * Hospitalization/Major Diagno stic Procedure: * Medications: Objective: * Vitals: * Physical Examination: Assessment: * Assessment: 1. P ancreatic cyst - K86.2 (Primary) Plan: * Treatment: * Procedure Codes: * true * Date: Generated for Printi ng/Faxing/eTransmitting on: 0 11/17/2024 07:30 AM EDT
--- OUTSIDE RECORDS SUMMARY | 2024-09-08 12:53 | XMS_ITS ---
Author Organization [facility] in [place] Address [address] [place] [address] Care Team Providers Care Individual Pension Adviser Name Role Phone Milton Monroy Primary Care Provider REASON FOR VISIT UTI Medications Medication SIG (Take, Route, Fr equency, Duration) Notes Start Date End Date Status Bactrim DS 800-160 MG 1 tablet Orally bi d for 10 days 09/08/2024 Active Pyridium 200 MG 1 tablet after meals Orally Three times a day for 2 days 09/08/2024 Act ella Encounters Encounter Location Date Provider Diagnosis [address] [address] 09/08/2024 Milton Monroy Plan Of Treatment Medication Medication Name Sig Start Date Stop Date Notes Bactrim DS 800-160 MG 1 tablet Orally bid for 10 days 12/2024 Pyridium 200 MG 1 tablet after meals Orally Three times a day for 2 days 09/08/2024 Progress Notes * DASHA TrOB:1965 (59 yo F)Acc No.[id number]:09/08/2024 Patient: Izabella ALMEIDA :1965 A ge:59 Y S ex:Female Address:[address] [place] [phone] * Refills Start Bactrim DS Tablet, 800-160 MG, Orally, 20 Tablet, 1 tablet, bid, 10 days, Refills=0 Start Pyridium Tablet, 200 MG, Orally, 9, 1 tablet after meals, Three times a day, 2 days * true * Date: Generated for Tova hillman/Gregg/María Elena on: 0 11/17/2024 07:30 AM EDT
--- OUTSIDE RECORDS SUMMARY | 2024-11-17 07:31 | XMS_ITS | Encounter Summary ---
Author Organization [facility] Address [address] [facility] [place] [address] Care Team Providers Care Laser Operator Name Role Phone Sacha Monroy MD Primary Care Provider [phone] Encounter Details Date Type Department Care Team (Late st Contact Info) Description 06/13/2024 Orders Only [facility] [address] [place] [place] [address] Phylicia Parks LPN [address] [facility] [place] [place] [address] Social History Tobacco Use Types Packs/Day Years [...] 06/06/2025 9:00 AM EST Office Visit [facility] [address] [place] [address] Noah Sotelo DO [address] [facility] [address] Mehrd[address] [place], [place] [id number] documented as of this encounter Procedures Procedure Name Priority Date/Time Associated Diagnosis Comments PAP SMEAR Routine 05/31/2024 12:00 AM EST documented in this encounter Results * Pap Smear (05/31/2024 12:00 AM EST) Swab Cervical swab / Unknown us Deepak Nurse [facility] LAB CYTOLOGY ORDERABLES Final Result EXTERNAL LAB documented in this encounter Visit Diagnoses Not on filedocumented in this encounter Care Teams Laser Operator Relationship Specialty Start Date End Date Sacha Monroy MD PCP - General Family Medicine 05/25/23 documented as of this encounter
--- OUTSIDE RECORDS SUMMARY | 2024-11-17 07:31 | XMS_ITS | Encounter Summary ---
Author Organization [facility] Address [address] [place] [facility] [place] [address] Care Team Providers Care Carbide Operator Name Role Phone Sacha Monroy MD Primary Care Provider [phone] Encounter Details Date Type Department Care Team (Late st Contact Info) Description 05/23/2024 Orders Only [facility] [address] [place] [address] Martha Bello MA Social History Tobacco [...] 06/06/2025 9:00 AM EST Office Visit [facility] [address] [place] [address] Noah Sotelo DO [address] [place] [address] Dr Mehrdad [place], [place] [id number] documented as of this encounter Procedures Procedure Name Priority Date/Time Associated Diagnosis Comments PAP SMEAR Routine 05/25/2023 12:00 AM EST documented in this encounter Results * Pap Smear (05/25/2023 12:00 AM EST) Swab Cervical swab / Unknown Noah Sotelo DO LAB CYTOLOGY ORDERABLES Final Re sult EXTERNAL LAB documented in this encounter Visit Diagnoses Not on filedocumented in this encounter Care Teams Carbide Operator Relationship Specialty Start Date End Date Sacha Monroy MD PCP - General Family Medicine 05/25/23 documented as of this encounter
--- OUTSIDE RECORDS SUMMARY | 2024-11-17 07:31 | XMS_ITS | Clinical Summary ---
Author Organization [facility] Address [address] [place] [address] Care Team Providers Care Airport Electrician Name Role Phone Sacha Monroy MD Primary Care Provider [phone] Allergies No known active allergies Medications ipratropium [...] 30 tablet 11 5 05/31/19 26 Active Social History Tobacco Use Types Packs/Day Years [...] 06/06/2025 9:00 AM EST Office Visit [facility] OB [address] [facility] [address] [place] [address] Noah Sotelo, DO [address] [facility] [place] [address] Health Maintenance Due Date Last Done Comments CT Colonography 1965 Colonoscopy 1965 FIT 1965 FOBT 1965 Sigmoidoscopy 1965 HPV/Cotest 05/25/2024 Influenza Vaccine (#1) 2025 02/12/2015 Mammogram 07/28/2025 07/28/2024, 06/12/2023 Colorectal Cancer Screening [...] AM EDT Narrative 07/28/2024 7:35 [place] [address] Mammography Report Signed Patient: IZABELLA LOU MR#: [id number] : 1965 Acct:[id number] Age/Sex: 59 / F ADM Date: 07/27/24 Loc: MAMMO Attending Dr: Noah Sotelo D.O. Ordering Physician: Noah Sotelo D.O. Results: Date of Service: 07/27/24 Follow Up: Procedure(s): MM tomosynthesis screening BI Accession Number(s): [id number] cc: Noah Sotelo D.O.; Sacha Monroy M.D. Patient Name: IZABELLA LOU MR#: [id number] : 1965 Exam Date: 07/27/2024 Ordering Doctor: [...] Treatments None Family Cancers None LOCATION: [facility] BREAST COMPOSITION: The breasts are heterogeneously dense,which [...] Signed By: 07/28/24 0735 DD/ 0734 TD/TT: Track Layer Head: Procedure Note Radiology, Radiologist, MD - 07/28/2024 [place] [address] Mammography Report Signed Patient: IZABELLA LOU RMR#: [id number] : 1965Acct:[id number] Age/Sex: 59 / FADM Date: 07/27/24 Loc: MAMMO Attending Dr: Noah Sotelo D.O. Ordering Physician: Noah Sotelo D.O.Results: Date of Service: 07/27/24Follow Up: Procedure(s): MM tomosynthesis screening BI Accession Number(s): [id number] cc: Noah Sotelo D.O.; Sacha Monroy M.D. Patient Name: IZABELLA LOU MR#: [id number] : 1965 Exam Date: 07/27/2024 Ordering Doctor: DR Noah Sotelo . RADIOLOGY REPORT PROCEDURE: MM TOMOSYNTHESIS SCREENING BI COMPARISON: MM TOMOSYNTHESIS SCREENING BI, 06/12/2023. MG MAMM [id number] SUMI CAD, 05/09/2021. MG MAMM SCREEN SUMI W CAD, 03/31/2017. MAMMO POSTBIOPSY UNILATERAL LEFT, 05/13/2012. INDICATIONS: Screening Calculator Name NCI Breast Cancer Risk Assessment Tool 5 Year Breast Cancer Risk 1.80% Lifetime Breast Cancer Risk 8.70% Personal Breast Cancer No Personal Ovarian Cancer No Treatments None Family Cancers None LOCATION: [facility] BREAST COMPOSITION: The breasts are heterogeneously dense,which [...] on 07/28/2024 at 07:23 Approved by: Glen Coleman, DO on 07/28/2024 at 07:33 Dictated By: Glen Coleman D.O. Signed By:07/28/2435 DD/ TD/TT: Track Layer Head: us Noah Deepak DO [facility] Final Result * Pap Smear (05/31/2024 12:00 AM EST) Swab Cervical swab / Unknown us Deepak Nurse [facility] LAB CYTOLOGY ORDERABLES Final Result EXTERNAL LAB from Last 3 Months or Most Recently Relevant to Health Maintenance Insurance BS Care Teams Airport Electrician Relationship Specialty Start Date End Date Sacha Monroy MD PCP - General Family Medicine 05/25/23
--- OUTSIDE RECORDS SUMMARY | 2024-11-17 07:31 | XMS_ITS | Clinical Summary ---
Author Organization [facility] Address [address] [place] [address] Care Team Providers Care Flight Security Specialist Name Role Phone Sacha Monroy MD Primary Care Provider [phone] Allergies No known active allergies Medications montelukast [...] (1 - 2023- season) 2024 Influenza Vaccine (#1) 2025 02/12/2015 RSV Vaccine (1 - 1-dose 75+ series) 2038 Insurance Member Subscriber Plan / Payer (Ef fective 2012-Present) Name:Izabella Ogden Relation to Subscriber:Self Name:Izabella Ogden Payer ID:Not on file Type:PPO Address: [place] [phone] Care Teams Flight Security Specialist Relationship Specialty Start Date End Date Sacha Monroy MD PCP - General Family Medicine 05/19/12
--- OUTSIDE RECORDS SUMMARY | 2024-11-17 07:31 | XMS_ITS | Clinical Summary ---
Author Organization [facility] Address [address] [place] [address] Phone Care Team Providers Care Product Engineer Name Role Phone Sacha Monroy MD Primary Care Provider [phone] Allergies No known active allergies Medications lisinopril 10 mg tablet Take 1 tablet (10 mg) by mouth once daily. Active metFORMIN XR 500 mg 24 hr tablet Take 1 tablet (500 mg) by mouth once daily in the evening. Take with meals. Active aspirin 81 mg EC tablet Take 1 tablet (81 mg) by mouth once daily. 4 Active tiZANidine (Zanaflex) 4 mg tablet Take [...] smoker 08/10/2024 Asthma 08/10/2024 Family history of MD (myocardial infarction) 01/2025 Abnormal EKG 08/10/2024 PVC (premature ventricular contraction) 08/11/19 25 Pre-diabetes 08/10/2024 Encounters Date Type Department Care Team Description 10/12/[address] [place] [address] Kandice Sosa LPN Results 10/11/2024 7:45 AM EDT - 10/11/2024 11:59 PM EDT Hospital Encounter [place] [address] [place] [address] Abnormal EKG; Family history of MD (myocardial infarction); PVC (premature ventricular contraction) Discharge Disposition: Home 10/11/2024 Travel 10/10/[address] [place] [address] Vannessa Braga, FRITZ 10/10/2024 Telephone Visit [address] [place] [address] Vannessa Braga RN 10/10/[address] [place] [address] Vannessa Braga RN 10/06/2024 7:30 PM EDT - 10/06/2024 11:59 PM EDT Hospital Encounter [facility] [address] [place] [address] Abnormal EKG; Family history of MD (myocardial infarction) Discharge Disposition: Home 10/06/2024 Travel 08/31/2024 Scanned Document [facility] [address] [place] [address] Scanning, Generic Provider from Last 3 Months [...] Sign Reading Time Taken Comments Blood Pressure 120/76 10/11/2024 8:05 AM EDT Pulse 72 08/10/2024 10:03 AM EDT Temperature - - Respiratory Rate - - Oxygen Saturation - - Inhaled Oxygen Concentration - - Weight 102 kg (224 lb) 10/11/2024 8:05 AM EDT Height 172.7 cm (5' 8 ) 10/11/2024 8:05 AM EDT Body Mass Index 34.06 10/11/2024 8:05 AM EDT Plan of Treatment Upcoming Encounters Date Type Department Care Team (Late st Contact Info) Description 11/29/2024 11:20 AM EDT Office Visit [facility] [address] [facility] [address] [place] [address] Luis Alberto Wong MD [address] [facility] [address] [place] [address] Health Maintenance Due Date Last Done Comments CT Colonography 1965 FIT 1965 HIV Screening 1965 Lipid Panel 1965 Sigmoidoscopy 1963 Diabetes Screening 1981 Hepatitis C Screening 1981 Pneumococcal Vaccine (1 of 2 - PCV) 1982 HPV/Cotest 1984 Mammogram 2003 Zoster Vaccines (1 of 2) 2013 RSV High Risk: (Elderly (60+ ) or Population) (1 - Risk 60-74 years 1-dose series) 2023 COVID-19 Vaccine (3 - 2023-2 5 season) 2024 05/30/2020, 05/02/2020 Influenza Vaccine (#1) 2025 5, 03/02/2009 Yearly Adult Physical 06/01/2025 05/31/2024 , 05/25/2023 FIT-DNA (Cologuard) 12/04/2026 12/05/2023, 10/17/2019 Cervical Cancer [...] Procedure Name Priority Date/Time Associated Diagnosis Comments TRANSTHORACIC ECHO (TTE) COMPLETE Routine 10/11/2024 8:42 AM EDT Abnormal EKG Family history of MD (myocardial infarction) PVC (premature ventricular contraction) CT CARDIAC SCORING WO IV CONTRAST Routine 10/06/2024 7:54 PM EDT Abnormal EKG Family history of MD (myocardial infarction) OUTSIDE IMAGING SCAN 08/31/2024 from Last 3 Months Results * TRANSTHORACIC ECHO (TTE) COMPLETE (10/11/2024 8:42 AM EDT) AV mn grad 3 mmHg SYNGO AV pk stephen 1.16 m/s SYNGO LV Biplane EF 64 % SYNGO LVOT diam 2.32 cm SYNGO MV E/A ratio 1.21 SYNGO MV avg E/e' ratio 10.15 SYNGO LA vol index A/L 32.2 ml/m2 SYNGO LV EF 63 % SYNGO RV free wall pk S' 14.00 cm/s SYNGO RVSP 23 mmHg SYNGO LVIDd 3.88 cm SYNGO Aortic Valve Area by Continuity of Peak Velocity 3.54 cm2 SYNGO AV pk grad 5 mmHg SYNGO Aortic Valve Area by Continuity of VTI 3.53 cm2 SYNGO LV A4C EF 59.4 SYNGO 10/11/2024 8:05 AM EDT Narrative SYNGO - 10/11/2024 4:27 PM EDT [facility] [address] [facility], [address], [place] [address] TRANSTHORACIC ECHOCARDIOGRAM REPORT Patient Name: JUAN CARLOSОлег LOU Reading Physician: [id number] Luis Alberto Wong MD, [facility] Study Date: 10/11/2024 Ordering Provider: [id number] LUIS ALBERTO WONG MRN/PID: [id number] Fellow: Nurse: Date of /Age: 2 1965 Wire Frame Lampshade Maker: Shabnam boykin RDCS, RVT Gender Assigned at F Additional Staff: : Height: 172.72 cm Admit Date: Weight: 101.60 kg Admission Status: Outpatient BSA / BMI: 2.14 m2 / 34.06 Department Location: [facility] kg/m2 [place] Blood Pressure: 120 /76 mmHg Study Type: TRANSTHORACIC ECHO (TTE) COMPLETE Diagnosis/ICD: Abnormal electrocardiogram [ECG] [EKG]-R94.31; Family history of ischemic heart disease and other diseases of the circulatory system-Z82.49; Ventricular premature depolarization-I49.3 Indication: HTN, Palpitations, Former Smoker CPT Codes: Echo Complete w Full Doppler-60361 Study Detail: The following Echo studies were [...] AoV Mean P.8 mmHg (1.7-11.5mmHg) LVOT Max Stephen: 0.97 m/s (<=1.1m/s) AoV VTI: 27.25 cm (18-25cm) LVOT VTI: 22.86 cm LVOT Diameter: 2.32 cm (1.8-2.4cm) AoV Area, VTI: 3.53 cm2 (2.5-5.5cm2) AoV Area,Vmax: 3.54 cm2 (2.5-4.5cm2) AoV Dimensionless Index: 0.84 RIGHT VENTRICLE: RV Basal 3.44 cm RV Mid 2.40 cm RV Major 4.9 cm RV s' 0.14 m/s TRICUSPID VALVE/RVSP: Normal Ranges: Peak TR Velocity: 2.23 m/s Est. RA Pressure: 3 mmHg RV Syst Pressure: 23 mmHg (< 30mmHg) IVC Diam: 1.75 cm PULMONIC VALVE: Normal Ranges: RVOT Vmax: 0.57 m/s (0.6-0.9m/s) AORTA: Asc Ao Diam 3.30 cm [id number] Luis Alberto Wong MD, [facility] Electronically signed on 10/11/2024 at 4:27:48 PM Final Procedure Note Luis Alberto Wong MD - 10/11/[address], [address], [place] [address] TRANSTHORACIC ECHOCARDIOGRAM REPORT Patient Name: JUAN CARLOS LOU Reading Physician: [id number] Wong MD,[facility] Study Date: 10/11/2024 Ordering Provider: [id number] MAU WONG MRN/PID: [id number] Fellow: Nurse: Date of /Age: 2 1965 Wire Frame Lampshade Maker: Beverly boykin RD, RVT Gender Assigned at F Additional Staff: : Height: 172.72 cm Admit Date: Weight: 101.60 kg Admission Status: Outpatient BSA / BMI: 2.14 m2 / 34.06 [facility] [place] Blood Pressure: 120 /76 mmHg Study Type: TRANSTHORACIC ECHO (TTE) COMPLETE Diagnosis/ICD: Abnormal electrocardiogram [ECG] [EKG]-R94.31; Familyhistory of ischemic heart disease and other diseases of thecirculatory system-Z82.49; Ventricular premature depolarization-I49.3 Indication: HTN, Palpitations, Former Smoker CPT Codes: Echo Complete w Full Doppler-85788 Study Detail: The following Echo studies were performed: 2D, M-Mode,Doppler and color flow. PHYSICIAN INTERPRETATION: Left Ventricle: The left ventricular systolic function is normal with avisually estimated ejection fraction of 60-65%. There are no regional wallmotion abnormalities. The left ventricular cavity size is normal. There ismildly increased posterior left ventricular wall thickness. There is leftventricular concentric remodeling. Spectral Doppler shows a normal patternof left ventricular diastolic filling. Sigmoid basal septum, normalvariant. Left Atrium: The left atrial size is normal. Right Ventricle: The right ventricle is normal in size. There is normalright ventricular global systolic function. Right Atrium: The right atrial size is normal. Aortic Valve: The aortic valve is trileaflet. The aortic valve area by VTIis 3.53 cm with a peak velocity of 1.16 m/s. The peak and meangradients are 5 mmHg and 3 mmHg, respectively, with a dimensionless indexof 0.84. There is no evidence of aortic valve regurgitation. Mitral Valve: The mitral valve is normal in structure. The dopplerestimated peak and mean diastolic gradients are 4 mmHg and 1 mmHg,respectively. There is no evidence of mitral valve regurgitation. The EVmax is 0.86 m/s. Tricuspid Valve: The tricuspid valve is structurally normal. No evidenceof tricuspid regurgitation. The Doppler estimated right ventricularsystolic pressure (RVSP) is within normal limits at 23 mmHg. Pulmonic Valve: The pulmonic valve is structurally normal. There is noindication of pulmonic valve regurgitation. Pericardium: No pericardial effusion noted. Aorta: The aortic root is normal. Additional Comments: Normal echocardiogram. In comparison to the previous echocardiogram(s): No previous studies areavailable for comparison. CONCLUSIONS: 1. The left ventricular systolic function is normal with a visuallyestimated ejection fraction of 60-65%. 2. Normal echocardiogram. [...] AoV Mean P.8 mmHg (1.7-11.5mmHg) LVOT Max Stephen: 0.97 m/s (<=1.1m/s) AoV VTI: 27.25 cm (18-25cm) LVOT VTI: 22.86 cm LVOT Diameter: 2.32 cm (1.8-2.4cm) AoV Area, VTI: 3.53 cm2 (2.5-5.5cm2) AoV Area,Vmax: 3.54 cm2 (2.5-4.5cm2) AoV Dimensionless Index: 0.84 RIGHT VENTRICLE: RV Basal 3.44 cm RV Mid 2.40 cm RV Major 4.9 cm RV s' 0.14 m/s TRICUSPID VALVE/RVSP: Normal Ranges: Peak TR Velocity: 2.23 m/s Est. RA Pressure: 3 mmHg RV Syst Pressure: 23 mmHg (< 30mmHg) IVC Diam: 1.75 cm PULMONIC VALVE: Normal Ranges: RVOT Vmax: 0.57 m/s (0.6-0.9m/s) AORTA: Asc Ao Diam 3.30 cm [id number] Luis Alberto Wong MD, [facility] Electronically signed on 10/11/2024 at 4:27:48 PM Final us Luis Alberto Wong MD CV ECHO PROCEDURES Final Res ult SYNGO * CT cardiac scoring wo IV contrast (10/06/2024 7:54 PM EDT) Anatomical Region Laterality Modality Thoracic, Chest Computed Tomogra phy 10/07/2024 10:4 7 AM EDT 10/07/2024 11:17 AM EDT Addenda Addendum by Balta Calderon MD on 10/07/2024 11:16 AM EDT Interpreted By: Balta Calderon, ADDENDUM: NON-CARDIOVASCULAR FINDINGS [...] STRUCTURES ARE THE SOLE RESPONSIBILITY OF THE STEWARDING SUPERVISOR SUBMITTING THE ORIGINAL REPORT (NOT THIS ADDENDUM) Signed by: Balta Calderon 10/07/2024 11:16 AM -------- ORIGINAL REPORT -------- Dictation workstation: [id number] Impressions 10/07/2024 10:46 AM EDT 1. Coronary artery calcium score of 0*. *Coronary artery calcium scoring may be helpful in predicting the risk for future coronary heart disease events. According to the [place] [employer] Foundation Clinical Expert Consensus [...] P et al. Circulation. 2007; 115:402-426 Reading Area Intelligence Technician: Dr. Oj Coreas, Date: 10/07/2024 10:46 am Signed by: Oj Coreas 10/07/2024 10:46 AM Dictation workstation: [id number] Narrative 10/07/2024 10:46 AM EDT Interpreted By: Oj Coreas, STUDY: CT CARDIAC SCORING WO IV CONTRAST; 10/06/2024 7:54 pm INDICATION: Signs/Symptoms:family hx htn hyperlipidemia diabetes. COMPARISON: None. ACCESSION NUMBER(S): [id number] ORDERING CLINICIAN: LUIS ALBERTO WONG TECHNIQUE: Using prospective ECG gating, CT [...] in size. No pericardial effusion is present. Procedure Note Oj Coreas DO / Balta Calderon MD - 10/07/2024 Interpreted By: Oj Coreas, STUDY: CT CARDIAC SCORING WO IV CONTRAST; 10/06/2024 7:54 pm INDICATION: Signs/Symptoms:family hx htn hyperlipidemia diabetes. COMPARISON: None. ACCESSION NUMBER(S): [id number] ORDERING CLINICIAN: LUIS ALBERTO WONG TECHNIQUE: Using prospective ECG gating, CT [...] coronary heart disease events. According to the [place] [employer] Foundation Clinical Expert Consensus [...] modify other non-lipid coronary risk factors. Reference: [place] P et al. Circulation. 2007; 115:402-426 Reading Area Intelligence Technician: Dr. Oj Coreas, Date: 10/07/2024 10:46 am Signed by: Oj Coreas 10/07/2024 10:46 AM Dictation workstation: [id number] us Luis Alberto Wong MD IMG CT PROCEDURES Edited Res ult - Final * OUTSIDE IMAGING SCAN (08/31/2024) Anatomical Region Laterality Modality Other Narrative 08/31/2024 Ordered by an unspecified provider. us Generic Provider Scanning OUTSIDE SCAN Final Result from Last 3 Months Insurance [facility] Member Subscriber Plan / Payer (Ef fective 2021-Present) Name:Juan Carlos Lou Relation to Subscriber:Spouse Name:LUCILLE LOU Date of :1960 (Home) Address: [address] [place] [address] Payer ID:[id number] (NAIC) Type:Not on file Address: [address] [place] [phone] [facility] Member Subscriber Plan / Payer (Ef fective 2021-Present) Name:Juan Carlos Lou Relation to Subscriber:Spouse Name:LUCILLE LOU Date of :1962 (Home) Address: [address] [place] [address] Payer ID:[id number] (NAIC) Type:Not on file Address: [address] [place] [phone] Care Teams Product Engineer Relationship Specialty Start Date End Date Sacha Monroy MD [address] [facility] [place] [id number] PCP - General Family Medicine 07/28/24
--- OUTSIDE RECORDS SUMMARY | 2024-11-17 07:31 | XMS_ITS | Encounter Summary ---
Author Organization [facility] Address [address] [facility] [place] [address] Care Team Providers Care Concert Pianist Name Role Phone Sacha Monroy MD Primary Care Provider [phone] Encounter Details Date Type Department Care Team (Late st Contact Info) Description 06/12/2023 Clinisync Result Encounter [facility] External Department Unsolicited Noah Sotelo, DO [address] [place] [address] Social History Tobacco Use Types Packs/Day Years [...] 06/06/2025 9:00 AM EST Office Visit [facility] OB [address] [place] [address] Noah Sotelo, DO [address] [place] [address] documented as of this encounter Procedures Procedure Name Priority Date/Time Associated Diagnosis Comments MM TOMOSYNTHESIS SCREENING BI 06/12/2023 11:17 AM EST documented in this encounter Results * MM TOMOSYNTHESIS SCREENING BI (06/12/2023 11:17 AM EST) Anatomical Region Laterality Modality Other 06/12/2023 11:1 7 AM EST Narrative 06/12/2023 11:19 AM EST [place] [id number] Mammography Report Signed Patient: IZABELLA LOU MR#: [id number] : 1965 Acct:[id number] Age/Sex: 57 / F ADM Date: 06/12/23 Loc: MAMMO Attending Dr: Noah Sotelo D.O. Ordering Physician: Noah Sotelo D.O. Results: Date of Service: 06/12/23 Follow Up: Procedure(s): MM tomosynthesis screening BI Accession Number(s): [id number] cc: Noah Sotelo D.O.; Sacha Monroy M.D. Patient Name: IZABELLA LOU MR#: [id number] : 1965 Exam Date: 06/12/2023 Ordering Doctor: [...] Treatments None Family Cancers None LOCATION: [facility] BREAST COMPOSITION: Heterogeneously dense,which may obscure small [...] Signed By: 06/12/23 1119 DD/ 1117 TD/TT: Ferruler: Procedure Note Radiology, Radiologist, - 06/12/2023 [place] [address] Mammography Report Signed Patient: IZABELLA LOU RMR#: [id number] : 1965Acct:[id number] Age/Sex: 57 / FADM Date: 06/12/23 Loc: MAMMO Attending Dr: Noah Sotelo D.O. Ordering Physician: Noah Sotelo D.O.Results: Date of Service: 06/12/23Follow Up: Procedure(s): MM tomosynthesis screening BI Accession Number(s): [id number] cc: Noah Sotelo D.O.; Sacha Monroy M.D. Patient Name: IZABELLA LOU MR#: [id number] : 1965 Exam Date: 06/12/2023 Ordering Doctor: [...] Treatments None Family Cancers None LOCATION: [facility] BREAST COMPOSITION: Heterogeneously dense,which may obscure smallmasses. [...] M.D. Signed By:06/12/23 1119 DD/ 1117 TD/TT: Ferruler: us Noah Deepak DO [facility] Final Result documented in this encounter Visit Diagnoses Not on filedocumented in this encounter Care Teams Concert Pianist Relationship Specialty Start Date End Date Sacha Monroy MD PCP - General Family Medicine 05/25/23 documented as of this encounter
--- OUTSIDE RECORDS SUMMARY | 2024-11-17 07:31 | XMS_ITS | Encounter Summary ---
Author Organization [facility] Address [address] [place] [address] Phone Care Team Providers Care Windows And Doors Installer Name Role Phone Sacha Monroy MD Primary Care Provider [phone] Encounter Details Date Type Department Care Team (Late st Contact Info) Description 07/28/2024 Scanned Document [facility] [address] [place] [phone] Scanning, Generic Provider Social History Tobacco Use [...] Description 11/29/2024 11:20 AM EDT Office Visit [place] [address] [facility] [address] [place] [address] Rajeev Wong MD [address] [facility] 2, [facility] [address] [place] [address] documented as of this encounter Visit Diagnoses Not on filedocumented in this encounter Care Teams Windows And Doors Installer Relationship Specialty Start Date End Date Sacha Monroy MD [address] [facility] [place] [address] PCP - General Family Medicine 07/28/24 documented as of this encounter
--- OUTSIDE RECORDS SUMMARY | 2024-11-17 07:31 | XMS_ITS | Patient Health Record ---
Author Organization [facility] in [place] Address [address] [place], [place] [address] Care Team Providers Care Improvement Auditor Name Role Phone Milton Monroy Primary Care Provider Latrice Larson Unavailable [phone] Allergies No Known Allergies Results Component Value Reference Range Notes FREE T4 Reviewed date:12/27/2023 09:12:17 PM Interpretation: Performing Lab: Notes/Report: [facility] , Free T4 0.98 0.76-1.46 ng/dL Performing Lab: see note ML - [facility] LB LIVER PROFILE Reviewed date:02/18/2024 12:49:01 PM Interpretation: Performing Lab: Notes/Report: [facility] , Bilirubin Total 0.4 0.2-1.0 mg/dL Bilirubin Direct 0.1 0.0-0.2 mg/dL Aspartate Amino Transferase 68 15-37 U/L Alanine Aminotransferase 175 14-59 U/L Alkaline Phosphatase 113 46-116 U/L Total Protein 7.1 6.4-8.2 g/dL Albumin Level 3.6 3.4-5.0 g/dL Globulin 3.5 Albumin Globulin Ratio 1.0 Performing Lab: see note ML - [facility] LB HIV Ab/p24 Ag with Reflex Reviewed date:02/18/2024 12:49:01 PM Interpretation: Performing Lab: Notes/Report: [facility] , HIV Ab/p24 Ag Screen Non Reactive Non Reactive HIV Negative Performed at: [facility] HIV-1/HIV-2 antibodies and HIV-1 p24 antigen were NOT [address], [place] [id number] detected. There is no laboratory evidence of HIV infection. Chief Engineer Production: Prakash Ballesteros PhD, Phone: [phone] Performing Lab: see note LC - [facility] LB IGP,Aptima HPV,Age Gdln Reviewed date:06/08/2024 12:25:42 PM Interpretation: Performing Lab: Notes/Report: BRUSH-SPATULA CERVIX ENDOCERVIX [facility] , Age Gdln ACOG Testing Note . Clinician Provided Cytology Information -- Desiree Hall MD, 01 =G [facility] [place] L-Low Normal,H-High Normal,LL-Alert Low,HH-Alert High [address] [facility] [place] [address] Performed at: FLAG LEGEND: TESTS RESULT FLAG [...] as the sole means of detecting cervical Jamesismael Dixon MD, cancer. Both false-positive and false-negative reports do 03 [facility] . 02 uterine cervix. It is not a diagnostic procedure and The Pap smear is a screening test designed to aid in the This liquid based ThinPrep(R) pap test was screened with the use of an image guided system. [address] [place] [address] -- Nuris Mason Safety Manager ([facility] 02 [facility] Cyto Histo detection of premalignant and malignant conditions of the THIS SPECIMEN WAS RESCREENED PART OF OUR PHYSICAL ANTHROPOLOGIST PROGRAM. Note: Note 03 -- Performed at: CELLULAR CHANGES ASSOCIATED WITH ATROPHY ARE PRESENT. [address] [facility] [place] [address] Satisfactory for evaluation. Endocervical and/or squamous metaplastic DIAGNOSIS: 02 Bryant Samaniego Safety Manager (ASCP) L-Low Normal,H-High Normal,LL-Alert Low,HH-Alert High HPV Aptima Negative Negative risk HPV types (16,18,31,33,35,39,45,51,52,5 6,58,59,66,68) Performed at: [facility] Cyto Histo This nucleic acid amplification test detects fourteen high- [address] Peter Lyle, JOSE LUIS [id number] Chief Engineer Production: James Dixon MD, Phone: [phone] [address] [place], [place] [id number] Chief Engineer Production: Desiree Hall MD, Phone: [phone] without differentiation. Performed at: =G - [facility] Peter Performing Lab: see note LC - [facility] LB AMYLASE Reviewed date:09/05/2024 03:01:34 PM Interpretation: Performing Lab: Notes/Report: [facility] , Amylase 69 25-115 U/L Performing Lab: see note ML - [facility] LB LIPASE Reviewed date:09/05/2024 03:01:34 PM Interpretation: Performing Lab: Notes/Report: [facility] , Lipase 64.0 16.0-77.0 U/L Performing Lab: see note ML - [facility] LB PROF 14(COMP METB) Reviewed date:09/05/2024 03:01:34 PM Interpretation: Performing Lab: Notes/Report: [facility] , Sodium 140 136-145 mmol/L Potassium 4.1 [...] 1.1 Performing Lab: see note ML - [facility] LB AMYLASE Reviewed date:09/13/2024 02:58:03 PM Interpretation: Performing Lab: Notes/Report: [facility] , Amylase 60 25-115 U/L Performing Lab: see note ML - [facility] LB LIPASE Reviewed date:09/13/2024 02:58:03 PM Interpretation: Performing Lab: Notes/Report: [facility] , Lipase 50.0 16.0-77.0 U/L Performing Lab: see note ML - [facility] LB US right upper quadrant Reviewed date:09/06/2024 12:49:31 PM Interpretation: Performing Lab: Notes/Report: Source Facility: [facility] [place] [address] [place] [address] Ultrasound Report Signed Patient: JUAN CARLOS OGDEN MR#: [id number] : 1965 Acct:[id number] Age/Sex: 59 / F ADM Date: 09/06/24 Loc: US Attending Dr: Ciarra Monroy M.D. Ordering Physician: Ciarra Monroy M.D. Date of Service: 09/06/24 Procedure(s): US right upper quadrant Accession Number(s): [id number] cc: Ciarra Monroy M.D. The [place] [address] Patient Name: JUAN CARLOS OGDEN MRN: [id number] date: 1965 Sex: F Assigned Patient Location: Current Patient Location: Accession/Order Number: [id number] Exam Date: 09/06/2024 10:26 Report Date: 09/06/2024 [...] AND WITHOUT IV CONTRAST.. Impression dictated by: Sharonda Wilson Jr.OIrlanda 09/06/2024 10:45 AM Dictation Location: RADIO-PC-22 Electronically authenticated by: [id number] Y Date: 09/06/2024 10:45 Dictated By: Daniel Almanzar M.D. Signed By: 09/06/247 DD/ 44 TD/TT: Power Digger Operator: [place] [address] Ultrasound Report Signed Patient: JUAN CARLOS OGDEN MR#: [id number] : 1965 Acct:[id number] Age/Sex: 59 / F ADM Date: 09/06/24 Loc: US Attending Dr: Ciarra Monroy M.D. Ordering Physician: Ciarra Monroy M.D. Date of Service: 09/06/24 Procedure(s): US right upper quadrant Accession Number(s): [id number] cc: Ciarra Monroy M.D. [place] [address] Patient Name: JUAN CARLOS OGDEN MRN: [id number] date: 1965 Sex: F Assigned Patient Location: US Current Patient Location: US Accession/Order Number: [id number] Exam Date: 09/06/2024 10:26 Report Date: 09/06/2024 [...] Jr., D.O. 09/06/2024 10:45 AM Dictation Location: [facility]IO-PC-22 Electronically authenticated by: [id number] Y Date: 09/06/2024 10:45 Dictated By: Daniel Almanzar M.D. Signed By: 09/06/24 1047 DD/ 1045 TD/TT: Power Digger Operator: MM tomosynthesis screening B I Reviewed date:07/28/2024 07:23:14 PM Interpretation: Performing Lab: Notes/Report: Source Facility: [facility] [place] [address] [place] [address] Mammography Report Signed Patient: JUAN CARLOS OGDEN MR#: [id number] : 1965 Acct:[id number] Age/Sex: 59 / F ADM Date: 07/27/24 Loc: MAMMO Attending Dr: Noah Sotelo D.O. Ordering Physician: Noah Sotelo D.O. Results: Date of Service: 07/27/24 Follow Up: Procedure(s): MM tomosynthesis screening BI Accession Number(s): [id number] cc: Noah Sotelo D.O.; Ciarra Monroy M.D. Patient Name: JUAN CARLOS OGDEN MR#: [id number] : 1965 Exam Date: 07/27/2024 Ordering Doctor: [...] Treatments None Family Cancers None LOCATION: [facility] BREAST COMPOSITION: The breasts are heterogeneously dense,which [...] Signed By: 07/28/24 0735 DD/ 0734 TD/TT: Power Digger Operator: [place] [address] Mammography Report Signed Patient: JUAN CARLOS OGDEN MR#: [id number] : 1965 Acct:[id number] Age/Sex: 59 / F ADM Date: 07/27/24 Loc: MAMMO Attending Dr: Noah Sotelo D.O. Ordering Physician: Noah Sotelo D.O. Results: Date of Service: 07/27/24 Follow Up: Procedure(s): MM tomosynthesis screening BI Accession Number(s): [id number] cc: Noah Sotelo D.O.; Ciarra Monroy M.D. Patient Name: JUAN CARLOS OGDEN MR#: [id number] : 1965 Exam Date: 07/27/2024 Ordering Doctor: [...] Treatments None Family Cancers None LOCATION: [facility] BREAST COMPOSITION: The breasts are heterogeneously dense,which [...] Signed By: 07/28/24 0735 DD/ 0734 TD/TT: Power Digger Operator: ANEL yanique perf SPECT rest str Reviewed date:07/27/2024 06:31:34 PM Interpretation: Performing Lab: Notes/Report: Source Facility: [place] [address] Nuclear Medicine Report Signed Patient: JUAN CARLOS OGDEN MR#: [id number] : 1965 Acct:[id number] Age/Sex: 59 / F ADM Date: 07/26/24 Loc: ANEL Attending Dr: Ciarra Monroy M.D. Ordering Physician: Ciarra Monroy M.D. Date of Service: 07/26/24 Procedure(s): NM yanique perf SPECT rest str Accession Number(s): [id number] cc: Ciarra Monroy M.D. Patient Name: JUAN CARLOS OGDEN MR#: [id number] : 1965 Exam Date: 07/26/2024 Ordering Doctor: [...] the study was pending per attending physician [facility] . For more details, please see [...] Signed By: 07/27/24 1418 DD/ 1417 TD/TT: Power Digger Operator: [place] [address] Nuclear Medicine Report Signed Patient: JUAN CARLOS OGDEN MR#: [id number] : 1965 Acct:[id number] Age/Sex: 59 / F ADM Date: 07/26/24 Loc: NM Attending Dr: Ciarra Monroy M.D. Ordering Physician: Ciarra Monroy M.D. Date of Service: 07/26/24 Procedure(s): NM yanique perf SPECT rest str Accession Number(s): [id number] cc: Ciarra Monroy M.D. Patient Name: JUAN CARLOS OGDEN MR#: [id number] : 1965 Exam Date: 07/26/2024 Ordering Doctor: [...] the study was pending per attending physician [facility] . For more details, please see [...] Signed By: 07/27/24 1418 DD/ 1417 TD/TT: Power Digger Operator: LIVER PROFILE Reviewed date:03/03/2024 09:55:16 PM Interpretation: Performing Lab: Notes/Report: [facility] , Bilirubin Total 0.3 0.2-1.0 mg/dL Bilirubin Direct 0.1 0.0-0.2 mg/dL Aspartate Amino Transferase 23 15-37 U/L Alanine Aminotransferase 54 14-59 U/L Alkaline Phosphatase 88 46-116 U/L Total Protein 6.9 6.4-8.2 g/dL Albumin Level 3.5 3.4-5.0 g/dL Globulin 3.4 Albumin Globulin Ratio 1.0 Performing Lab: see note ML - [facility] LB Hepatitis B Surf Ab Quant Reviewed date:02/18/2024 12:49:01 PM Interpretation: Performing Lab: Notes/Report: [facility] , Hepatitis B Surf Ab Quant 102.0 Immunity>10 mIU/mL Consistent with Immunity >10.0 Status of Immunity Anti-HBs Level Inconsistent with Immunity 0.0 - 10.0 Performing Lab: see note LC - [facility] LB HCV Antibody Reviewed date:02/18/2024 12:49:01 PM Interpretation: Performing Lab: Notes/Report: [facility] , HCV Antibody Non Reactive Non Reactive Equivocal and Reactive HCV antibody results should be Chief Engineer Production: Prakash Ballesteros PhD, Phone: [phone] previously resolved infection and active infection. of active HCV infection. followed up with an HCV RNA test to support the diagnosis HCV antibody alone does not differentiate between Performed at: [address] [id number] Performing Lab: see note - [facility] LB Rapid Plasma Reagin, Quant Reviewed date:02/18/2024 12:49:01 PM Interpretation: Performing Lab: Notes/Report: [facility] , Rapid Plasma Reagin, Quant Non Reactive NonRea<1:1 titer Treponema pallidum (Syphilis) Screening [place] ([id number]) or [address] [place] [phone] Rapid Plasma Reagin (RPR) Test With Reflex to Quantitative RPR and Confirmatory Treponema pallidum Antibodies Chief Engineer Production: Prakash Ballesteros PhD, Phone: [phone] ([phone]). Please Note: This test does not meet current guidelines for treated for syphilis infection. To screen for syphilis screening and diagnosis of syphilis. This test is intended for following treatment response in patients being treponema-specific assay should be utilized, such as Performed at: [facility] infection, a reflex cascade that includes both RPR and a Performing Lab: see note - [facility] LB XR hip RT 2V w/ pelvis Reviewed date:02/10/2024 08:02:50 PM Interpretation: Performing Lab: Notes/Report: Source Facility: [place] [address] [place] [address] XRay Report Signed Patient: JUAN CARLOS OGDEN MR#: [id number] : 1965 Acct:[id number] Age/Sex: 58 / F ADM Date: 02/09/24 Loc: RAD Attending Dr: Ciarra Monroy M.D. Ordering Physician: Ciarra Monroy M.D. Date of Service: 02/09/24 Procedure(s): XR hip RT 2V w/ pelvis Accession Number(s): [id number] cc: Ciarra Monroy M.D. [facility] [place] [address] Patient Name: JUAN CARLOS OGDEN MRN: [facility]:[id number] date: 1965 Sex: F Assigned Patient Location: [facility] Current Patient Location: Accession/Order Number: [id number] Exam Date: 02/09/2024 08:27 Report Date: 02/10/2024 [...] Frost M.D. Signed By: 02/10/2459 DD/ TD/TT: Power Digger Operator: [place] [address] XRay Report Signed Patient: JUAN CARLOS OGDEN MR#: [id number] : 1965 Acct:[id number] Age/Sex: 58 / F ADM Date: 02/09/24 Loc: [facility] Attending Dr: Ciarra Monroy M.D. Ordering Physician: Ciarra Monroy M.D. Date of Service: 02/09/24 Procedure(s): XR hip RT 2V w/ pelvis Accession Number(s): [id number] cc: Ciarra Monroy M.D. [place] [address] Patient Name: JUAN CARLOS OGDEN MRN: [id number] date: 1965 Sex: F Assigned Patient Location: [facility] Current Patient Location: Accession/Order Number: [id number] Exam Date: 02/09/2024 08:27 Report Date: 02/10/2024 [...] Frost M.D. Signed By: 02/10/2459 DD/ TD/TT: Power Digger Operator: TSH Reviewed date:12/27/2023 09:12:17 PM Interpretation: Performing Lab: Notes/Report: [facility] , Thyroid Stimulating Hormone 1.516 0.358-3.740 uIU/mL Performing Lab: see note ML - [facility] LB PROF 14(COMP METB) Reviewed date:12/27/2023 09:12:17 PM Interpretation: Performing Lab: Notes/Report: [facility] , Sodium 139 136-145 mmol/L Potassium 4.5 [...] Performing Lab: see note ML - [facility] LB LIPID PROFILE Reviewed date:12/27/2023 09:12:17 PM Interpretation: Performing Lab: Notes/Report: [facility] , Triglycerides 156 <=150 mg/dL Cholesterol 265 [...] RISK Performing Lab: see note ML - [facility] LB GLYCOHEMOGLOBIN A1C Reviewed date:12/27/2023 09:12:17 PM Interpretation: Performing Lab: Notes/Report: [facility] , Glycohemoglobin A1C 5.7 4.5-6.2 % > 7.0 ADA THERAPEUTIC TARGET < 7.0 ADA RECOMMENDED LIMIT 4.0 - 6.0 ACTION SUGGESTED Estimated Average Glucose 117 Performing Lab: see note ML - [facility] LB CBC AUTO DIFF Reviewed date:12/27/2023 09:12:17 PM Interpretation: Performing Lab: Notes/Report: [facility] , White Blood Count 4.5 4.0-11.0 10 [...] 0.00-0.03 10 3/uL Performing Lab: see note - [facility] LB PROF 14(COMP METB) Reviewed date:09/03/2024 05:13:25 PM Interpretation: Performing Lab: Notes/Report: [facility] , Sodium 138 136-145 mmol/L Potassium 4.2 [...] 1.1 Performing Lab: see note ML - [facility] LB LIPASE Reviewed date:09/03/2024 05:13:25 PM Interpretation: Performing Lab: Notes/Report: [facility] , Lipase 84.0 16.0-77.0 U/L Performing Lab: see note - [facility] LB CBC AUTO DIFF Reviewed date:09/03/2024 05:13:25 PM Interpretation: Performing Lab: Notes/Report: [facility] , White Blood Count 5.7 4.0-11.0 10 [...] 3/uL Performing Lab: see note ML - [facility] AMYLASE Reviewed date:09/03/2024 05:13:25 PM Interpretation: Performing Lab: Notes/Report: [facility] , Amylase 157 25-115 U/L Performing Lab: see note - [facility] LB CREATININE Reviewed date:09/24/2024 11:45:57 AM Interpretation: Performing Lab: Notes/Report: [facility] , Creatinine 0.82 0.55-1.02 mg/dL Estimated GFR ( Ninfa >60 >=60 mL/min/1.73m 2 Estimated GFR (Non- Lydia >60 >=60 mL/min/1.73m 2 Performing Lab: see note - [facility] LB PROF 14(COMP METB) Reviewed date:09/13/2024 02:58:03 PM Interpretation: Performing Lab: Notes/Report: [facility] , Sodium 139 136-145 mmol/L Potassium 4.1 [...] Performing Lab: see note ML - [facility] LB PROF 14(COMP METB) Reviewed date:09/09/2024 12:38:55 PM Interpretation: Performing Lab: Notes/Report: [facility] , Sodium 135 136-145 mmol/L Potassium 3.9 [...] Globulin Ratio 1.2 Performing Lab: see note - [facility] LB LIPASE Reviewed date:09/09/2024 12:38:55 PM Interpretation: Performing Lab: Notes/Report: [facility] , Lipase 104.0 16.0-77.0 U/L Performing Lab: see note - [facility] LB AMYLASE Reviewed date:09/09/2024 12:38:55 PM Interpretation: Performing Lab: Notes/Report: [facility] , Amylase 97 25-115 U/L Performing Lab: see note - [facility] LB CA 19-9 Reviewed date:09/03/2024 05:13:25 PM Interpretation: Performing Lab: Notes/Report: [facility] CA 19-9 4 0-35 U/mL Values obtained with different assay methods or kits cannot Chief Engineer Production: Prakash Ballesteros PhD, Phone: [phone] What the Trend Electrochemiluminescence Immunoassay disease. (ECLIA) be used interchangeably. Results cannot be interpreted as Performed at: [facility] [address] [id number] absolute evidence of the presence or absence of malignant Performing Lab: see note - [facility] LB Reason For Referral Diagnosis 1 [facility]ult [facility] (R19.5) Referral Organization [facility] Referring Provider First Name Milton Referring Provider Last Name [facility] Referring Provider [facility] Referred Provider Oj Sam Referred Provider Specialty General Surg michele Referral Priority Routine Diagnosis 1 Abnormal stress test (R94.39) Referral Organization [facility] Referring Provider First Name Milton Referring Provider Last Name [facility] Referring Provider [facility] Referred Provider Rajeev Wong Referred Provider Specialty Cardiology Referral Priority Routine Medications Medication SIG (Take, Route, Frequency, Duration) Notes Start Date End Date Status Aspir-Low 81 MG 1 tablet Orally Once a day Active Diclofenac Sodium ER 100 MG Oral for 30 Days Active tiZANidine HCl 4 MG Oral for 30 Days PRN Active traZODone HCl 50 MG TAKE 1 TABLET BY EVERYDAY AT BEDTIME Oral for 30 Days [...] W/U Status Risk Notes Problem Well adult (918168926) Well adult (Z00.00) Active confirmed Problem Arthralgia of the pelvic region and thigh (808203549) Right hip pain (M25.551) Active confirmed Problem Cardiac ischemia (956883313) Cardiac ischemia (I25.9) Active confirmed Problem Right lower lobe pneumonia (643151950) Right lower lobe pneumonia (J18.9) Active confirmed Problem 43317378 Pure hypercholestero lemia, unspecified (E78.00) Active confirmed Problem Acute pancreatitis (631988953) Pancreatitis, acute (K85.90) Active confirmed Problem Cough (59898400) Cough (R05.9) Active confirmed Vital Signs Blood pressure diastolic 80 mm Hg 09/02/2024 Height 69 in 09/02/2024 Blood pressure systolic 128 mm Hg 09/02/2024 Weight 223.2 lbs 09/02/2024 BMI 32.96 kg/m2 09/02/2024 Procedures Procedure Date Ordered Date Performed Result Body Sit e ECG with Interpretation 06/07/2024 06/07/2024 N/A Cardiolyte Stress Test 07/11/2024 N/A Colonoscopy 04/06/2024 Normal Encounters Encounter Location Date Provider Diagnosis [facility] [address] [place] [address] 08/24/2024 Milton Hoy Strep throat J02.0 [facility] [address] [place] [address] 11/19/2023 Milton Hoy Well adult Z00.00 [facility] [address] [place] [address] 02/08/2024 Milton Hoy Cough R05.9 ; Right hip pain M25.551 and Occult blood in stools R19.5 [facility] [address] [place] [address] 06/07/2024 Milton Hoy Well adult Z00.00 an d Chest pain R07.9 [facility] [address] [place] [facility] [address] 09/02/2024 Milton Hoy Pancreatitis, acute K85.90 [facility] [address] [place] [address] 12/27/2023 Milton Hoy Pure hypercholesterolemia, unspecified E78.00 [facility] [address] [place] [address] 02/18/2024 Milton Hoy Elevated liver enzymes R74.8 [facility] [address] [place] [address] 03/03/2024 Latrice Larson [facility] [address] [place] [facility] [address] 03/29/2024 Milton Hoy Right hip pain M25.551 [facility] [address] [place] [address] 07/11/2024 Milton Hoy Cardiac ischemia I25.9 [facility] [address] [place] [address] 07/27/2024 Milton Hoy Abnormal stress test R94.39 [facility] [address] [place] [facility] [place] [place] [address] 09/01/2024 Milton Monroy Strep throat J02.0 [facility] [address] [place] [facility] [address] 09/03/2024 Milton Monroy [facility] [address] [place] [place] [address] 09/06/2024 Milton Monroy Pancreatic cyst K86. 2 [facility] [address] [place] [place] [address] 09/08/2024 Milton Monroy [facility] [address] [place] [place] [address] 09/09/2024 Milton Monroy Assessments Encounter Date Diagnosis (ICD Code) Assessment [...] until they are finished. You can use ssol-eft-aahpdfk acetaminophen or ibuprofen if needed for pain. You can also use throat lozenges or gargle warm water to help with the sore throat. You are contagious until you have been on antibiotics for 24 hours. You should be extra vigilant about hand washing or using hand fork lift technician gel. You should follow up with your [...] ACCESS PPO PLUS LOCAL PLAN [address] [place] [phone] [id number] Juan Carlos Ogden Self - patient is the insured Medical (General) History Medical History History ICD Code Edema R60.9 DVT (deep venous thrombosis) I82.409 Ovarian cyst, left N83.202 Thyroid nodule E04.1 Allergic rhinitis J30.9 Asthma J45.909 MVP (mitral valve prolapse) I34.1 Surgical History Surgery Date(Month/Year) Laproscopic Gall Bladder Removal
--- OUTSIDE RECORDS SUMMARY | 2024-11-17 07:31 | XMS_ITS | Encounter Summary ---
Author Organization [facility] Address [address] [facility] [place] [address] Care Team Providers Care Assembly Member Name Role Phone Sacha Monroy MD Primary Care Provider [phone] Encounter Details Date Type Department Care Team (Late st Contact Info) Description 06/12/2023 Clinisync Result Encounter [facility] Unsolicited Bill Sotelo, DO [address] [place] [address] Social History Tobacco Use Types Packs/Day Years [...] 06/06/2025 9:00 AM EST Office Visit [facility] [address] [place] [id number] Bill Sotelo, DO [address] [place] [address] documented as of this encounter Procedures Procedure Name Priority Date/Time Associated Diagnosis Comments XR DEXA AXIAL SKELETON 06/12/2023 11:18 AM EST documented in this encounter Results * XR DEXA AXIAL SKELETON (06/12/2023 11:18 AM EST) Anatomical Region Laterality Modality Other 06/12/2023 11:1 8 AM EST Narrative 06/12/2023 11:21 AM EST [address] [address] XRay Report Signed Patient: IZABELLA LOU MR#: [id number] : 1965 Acct:[id number] Age/Sex: 57 / F ADM Date: 06/12/23 Loc: MAMMO Attending Dr: Bill Sotelo D.O. Ordering Physician: Bill Sotelo D.O. Date of Service: 06/12/23 Procedure(s): XR DEXA axial skeleton Accession Number(s): [id number] cc: Bill Sotelo D.O.; Sacha Monroy M.D. [address] [address] Patient Name: IZABELLA LOU MRN: [id number] date: 1965 Sex: F Assigned [facility] Current Patient Location: [facility] Accession/Order Number: [id number] Exam Date: 06/12/2023 10:20 Report Date: 06/12/2023 [...] Signed By: 06/12/23 1121 DD/ 1118 TD/TT: Animal Handler: Procedure Note Radiology, Radiologist, - 06/12/2023 [facility] [place] [id number] XRay Report Signed Patient: IZABELLA LOU RMR#: [id number] : 1965Acct:[id number] Age/Sex: 57 / FADM Date: 06/12/23 Loc: MAMMO Attending Dr: Bill Sotelo D.O. Ordering Physician: Bill Sotelo D.O. Date of Service: 06/12/23 Procedure(s): XR DEXA axial skeleton Accession Number(s): [id number] cc: Bill Sotelo D.O.; Sacha Monroy M.D. [facility] [place] [id number] Patient Name: IZABELLA LOU MRN: [id number] date: 1965 Sex: F Assigned Patient Location: [facility] Current Patient Location: [facility] Accession/Order Number: [id number] Exam Date: 06/12/2023 10:20 Report Date: 06/12/2023 [...] 11:18 Dictated By: Calvin Smith M.D. Signed By:06/12/23 1121 DD/ 1118 TD/TT: Animal Handler: us Bill Sotelo DO [facility] Final Result documented in this encounter Visit Diagnoses Not on filedocumented in this encounter Care Teams Assembly Member Relationship Specialty Start Date End Date Sacha Monroy MD PCP - General Family Medicine 05/25/23 documented as of this encounter
--- OUTSIDE RECORDS SUMMARY | 2024-11-17 07:31 | XMS_ITS | Encounter Summary ---
Author Organization [facility] Address [address] [place] [address] Phone Care Team Providers Care Socket Puller Name Role Phone Sacha Monroy MD Primary Care Provider [phone] Encounter Details Date Type Department Care Team (Late st Contact Info) Description 08/31/[address] [facility] [address] [place] [address] Scanning, Generic Provider Social History Tobacco Use Types Packs/Day Years Used Date Smoking Tobacco: Former Cigarettes Smokeless Tobacco: Never Alcohol Use Standard Drinks/Week Comments Never 0 (1 standard drink = 0.6 oz pur e alcohol) Comments Unknown Sex and Gender Information Value Date Recorded Sex Assigned at Not on file Legal Sex Female 2:10 PM EDT Gender Identity Not on file Sexual Orientation Not on file COVID-19 Exposure Response Date Recorded In the last 10 days, have yo u been in contact with someone who was confirmed or suspected to have Coronavirus/COVID-19? No / Unsure 08/10/2024 9:47 AM EDT documented as of this encounter Plan of Treatment Upcoming Encounters Date Type Department Care Team (Late st Contact Info) Description 11/29/2024 11:20 AM EDT Office Visit [facility] [address] [facility] [address] [place] [address] Rajeev Wong MD [address] [facility] [address] [place], [place] [id number] documented as of this encounter Procedures Procedure Name Priority Date/Time Associated Diagnosis Comments OUTSIDE IMAGING SCAN 08/31/2024 documented in this encounter Results * OUTSIDE IMAGING SCAN (08/31/2024) Anatomical Region Laterality Modality Other Narrative 08/31/2024 Ordered by an unspecified provider. us Generic Provider Scanning OUTSIDE SCAN Final Result documented in this encounter Visit Diagnoses Not on filedocumented in this encounter Additional Health Concerns Assessment Noted Time A fall risk assessment has been complete d for the patient 08/10/2024 10:03 AM EDT documented as of this encounter Care Teams Socket Puller Relationship Specialty Start Date End Date Sacha Monroy MD [address] [place] [address] PCP - General Family Medicine 07/28/24 documented as of this encounter
--- OUTSIDE RECORDS SUMMARY | 2024-11-17 07:32 | XMS_ITS | CCD ---
Author Organization [facility] CliniSyri Care Team Providers Care Wellness Educator Name Role Phone MD Ciarra Monroy Primary Care Provider MD Vishal Card [...] Unavailable MD Ciarra Monroy Primary Care Provider [phone] MD Anali Card Attending Provider Noah Sotelo Attending Provider [phone] Ciarra Monroy Primary Care Physician Ciarra Monroy Referring Unavailable Oj GONZALEZ Attending Unavailable Oj GONZALEZ Attending Unavailable Ciarra Monroy MD Primary Care Provider [phone] NOAH SOTELO Attending Unavailable Ciarra Monroy MD Primary Care Provider [phone] Ciarra Monroy MD Primary Care Provider Fly [...] Medication Allergies] Propensity to adverse reactions (disorder) [facility] Repository Medications Current Medications Medication Drug Class(es) Dates Sig (Normalized) Sig (Original) acetaminophen 325 mg / oxyCODONE hydrochloride 5 mg oral tablet (1 source) Opioid Agonist Start: 08-31-2024 take 1 tablet by mouth every six hours as needed for pain Oxycodone-Acetamin ophen (Percocet) 5-325 mg tablet Active 1 TAB PO Q6H as needed for pain 12 August 31, 2024 [id number] 200 actuat albuterol 0.09 mg/actuat metered dose [...] 06-06-2022 Chronic Other aftercare (1 source) Other salvage determiner (current) drug therapy; Translations: [OTH CUSTOMER MANAGEMENT SPECIALIST CURRENT DRUG THERAPY] Onset: 06-08-2022 Episodic [...] COM PLETEon 10-11-2024 TRANSTHORACIC ECHO (TTE) COMPLETE [address], [place] [address] TRANSTHORACIC ECHOCARDIOGRAM REPORT Patient Name: IZABELLA Morse Physician: [id number] Rajeev Wong MD, [facility] Study Date: 10/11/2024 Ordering Provider: [id number] RAJEEV WONG MRN/PID: [id number] Fellow: Nurse: Date of /Age: 2 1965 / 59 Radiology Physician: Shabnam boykin RD, RVT Gender Assigned at Additional Staff: : Height: 172.72 cm Admit Date: Weight: 101.60 kg Admission Status: Outpatient BSA / BMI: 2.14 m2 / 34.06 Department Location: [facility] kg/m2 [place] Blood Pressure: 120 /76 mmHg Study Type: TRANSTHORACIC ECHO (TTE) COMPLETE Diagnosis/ICD: Abnormal electrocardiogram [ECG] [EKG]-R94.31; Family history of ischemic heart disease and other diseases of the circulatory system-Z82.49; Ventricular premature depolarization-I49.3 Indication: HTN, Palpitations, Former Smoker CPT Codes: Echo Complete w Full Doppler-[id number] Study Detail: The following Echo studies were [...] 3 mmH (more content not included)... Normal [facility] US Heart Transthoracicon Aortic Valve Area by Continuity of Peak Velocity 3.54 cm2 [facility] Work Phone: [phone] Aortic Valve Area by Continuity of VTI 3.53 cm2 [facility] Work Phone: [phone] AV mn grad 3 mmHg [facility] Work Phone: [phone] AV pk grad 5 mmHg [facility] Work Phone: [phone] AV pk dominic 1.16 m/s [facility] Work Phone: [phone] LA vol index A/L 32.2 ml/m2 [facility] Work Phone: [phone] LV A4C EF 59.4 [facility] Work Phone: [phone] LV Biplane EF 64 % [facility] Work Phone: [phone] LV EF 63 % [facility] Work Phone: [phone] LVIDd 3.88 cm [facility] Work Phone: [phone] LVOT diam 2.32 cm [facility] Work Phone: [phone] MV avg E/e' ratio 10.15 [facility] Work Phone: [phone] MV E/A ratio 1.21 [facility] Work Phone: [phone] RV free wall pk S' 14 cm/s [facility] Work Phone: RVSP 23 mmHg [facility] Work Phone: [facility] [address] [place] [address], [address], [place] [address] TRANSTHORACIC ECHOCARDIOGRAM REPORT Patient Name: IZABELLA OGDEN Reading Physician: [id number] Rajeev Wong MD, [facility] Study Date: 10/11/2024 Ordering Provider: [id number] RAJEEV WONG MRN/PID: [id number] Fellow: Nurse: Date of /Age: 2 1965 Radiology Physician: Shabnam boykin RDCS, RVT Gender Assigned at F Additional Staff: : Height: 172.72 cm Admit Date: Weight: 101.60 kg Admission Status: Outpatient BSA / BMI: 2.14 m2 / 34.06 Department Location: [facility] kg/m2 [place] Blood Pressure: 120 /76 mmHg Study Type: TRANSTHORACIC ECHO (TTE) COMPLETE Diagnosis/ICD: Abnormal electrocardiogram [ECG] [EKG]-R94.31; Family history of ischemic heart disease and other diseases of the circulatory system-Z82.49; Ventricular premature depolarization-I49.3 Indication: HTN, Palpitations, Former Smoker CPT Codes: Echo Complete w Full Doppler-[id number] Study Detail: The following Echo studies were [...] included)... Rajeev Moreno M D - 10/11/[address], [address] [address] TRANSTHORACIC ECHOCARDIOGRAM REPORT Patient Name: IZABELLA Morse Physician: [id number] Rajeev Wong MD, [facility] Study Date: 10/11/2024 Ordering Provider: [id number] RAJEEV WONG MRN/PID: [id number] Fellow: Nurse: Date of /Age: 2 1965 Radiology Physician: Shabnam boykin [facility], [facility] Gender Assigned at F Additional Staff: : Height: 172.72 cm Admit Date: Weight: 101.60 kg Admission Status: Outpatient BSA / BMI: 2.14 m2 / 34.06 Department Location: [facility] kg/m2 [place] Blood Pressure: 120 /76 mmHg Study Type: TRANSTHORACIC ECHO (TTE) COMPLETE Diagnosis/ICD: Abnormal electrocardiogram [ECG] [EKG]-R94.31; Family history of ischemic heart disease and other diseases of the circulatory system-Z82.49; Ventricular premature depolarization-I49.3 Indication: HTN, Palpitations, Former Smoker CPT Codes: Echo Complete w Full Doppler-[id number] Study Detail: The following Echo studies were [...] Major 4.9 cm (more content not included)... [facility] Work Phone: [facility] Work Phone: CT CARDIAC SCORING WO IV [...] STRUCTURES ARE THE SOLE RESPONSIBILITY OF THE BUILDER OPERATOR SUBMITTING THE ORIGINAL REPORT (NOT THIS ADDENDUM) Signed by: Balta Calderon 10/07/2024 11:16 AM -------- ORIGINAL REPORT -------- Dictation workstation: [id number] Interpreted By: Oj Coreas, STUDY: CT CARDIAC SCORING WO IV CONTRAST; 10/06/2024 7:54 pm INDICATION: Signs/Symptoms:family hx htn hyperlipidemia diabetes. COMPARISON: None. ACCESSION NUMBER(S): [id number] ORDERING CLINICIAN: RAJEEV WONG TECHNIQUE: Using prospective [...] coronary heart disease events. According to the [employer] [employer] Clinical Expert Consensus [...] P et al. Circulation. 2007; 115:402-426 [place] Regional Sales Associate: Dr. Oj Coresa, Date: 10/07/2024 10:46 am Signed by: Oj Coreas 10/07/2024 10:46 AM Dictation workstation: [id number] [facility] Alanine aminotransferase [En zymatic activity/volume] in Serum or PlasmaOrdered By: Fly Conti on 08-31-2024 ALT [Catalytic activity/Vol] Alanine aminotransferase [Enzymatic activity/volume] in Serum or Plasma High 7-52 [facility] Albumin [Mass/volume] in Ser um or Plasma by Bromocresol green (BCG) dye binding methoOrdered By: Fly Conti on 08-31-2024 Albumin BCG dye [Mass/Vol] Albumin [Mass/volume] in Serum or Plasma by Bromocresol green (BCG) dye binding metho 3.5-5.7 [facility] Alkaline phosphatase [Enzyma tic activity/volume] in Serum or PlasmaOrdered By: Fly Conti on 08-31-2024 ALP [Catalytic activity/Vol] Alkaline phosphatase [Enzymatic activity/volume] in Serum or Plasma High 34-104 [facility] Appearance of UrineOrdered B y: Fly Conti on 08-31-2024 Appearance (U) Urine appearance Clear [facility] Aspartate aminotransferase [ Enzymatic activity/volume] in Serum or PlasmaOrdered By: Fly Conti on 08-31-2024 AST [Catalytic activity/Vol] Aspartate aminotransferase [Enzymatic activity/volume] in Serum or Plasma High 13-39 [facility] B-Type Natriuretic Peptideon 08-31-2024 Natriuretic peptide B (Bld) [Mass/Vol] 16.0 pg/mL Normal 5-100 [facility] Comment on above: Result Comment: PERF ORMED BY: [place] [address] PATHOLOGIST MACHINE PULLER BARBARA WOLFE M.D. Performed By: #### L IPASE, HS TROP, TRIG, HEPATIC #### [place] [address] [place] Bacteria [Presence] in Urine by AutomatedOrdered By: Fly Conti on 08-31-2024 Bacteria Auto Ql (U) Bacteria [Presence] in Urine by Automated None Seen [facility] Basic Metabolic Panelon 08-04 Anion gap [Moles/Vol] 11.0 mmol/L Normal 6.0-15.0 [facility] Comment on above: Performed By: #### L IPASE, HS TROP, TRIG, HEPATIC #### [place] [address] [place] Calcium [Mass/Vol] 9.2 mg/dL Normal 8.6-10.3 [facility] Comment on above: Performed By: #### L IPASE, HS TROP, TRIG, HEPATIC #### [facility] [address] [place] [address] [place] Chloride [Moles/Vol] 102 mmol/L Normal 98-107 [facility] Comment on above: Performed By: #### L IPASE, HS TROP, TRIG, HEPATIC #### [facility] [address] [place] [address] [place] CO2 [Moles/Vol] 23.4 mmol/L Normal 21.0-31.0 [facility] Comment on above: Performed By: #### L IPASE, HS TROP, TRIG, HEPATIC #### [address] [place] [address] [place] Creatinine [Mass/Vol] 0.90 mg/dL Normal 0.60-1.20 [facility] Comment on above: Performed By: #### L IPASE, HS TROP, TRIG, HEPATIC #### [address] Creatinine Clr Calc Pharmacy 83.98 Normal [facility] Comment on above: Result Comment: PERF ORMED BY: [place] [address] PATHOLOGIST MACHINE PULLER BARBARA WOLFE M.D. Performed By: #### L IPASE, HS TROP, TRIG, HEPATIC #### [address] GFR/1.73 sq M.predicted MDRD (S/P/Bld) [Vol rate/Area] mL/min/{1.73_m2} Normal [facility] Comment on above: Performed By: #### L IPASE, HS TROP, TRIG, HEPATIC #### [address] Glucose [Mass/Vol] 112 mg/dL High 70-100 [facility] Comment on above: Result Comment: [place] Glucose Reference Range is dependent on time and content of last meal. Glucose of more than 200 mg/dL in a nonstressed, ambulatory subject supports the diagnosis of Diabetes Mellitus. ADA recommended reference range Performed By: #### L IPASE, HS TROP, TRIG, HEPATIC #### [address] Potassium [Moles/Vol] 4.4 mmol/L Normal 3.5-5.1 [facility] Comment on above: Performed By: #### L IPASE, HS TROP, TRIG, HEPATIC #### [place] [address] [place] Sodium [Moles/Vol] 132 mmol/L Low 136-145 [facility] Comment on above: Performed By: #### L IPASE, HS TROP, TRIG, HEPATIC #### [place] [address] [place] Urea nitrogen [Mass/Vol] 32 mg/dL High 7-25 [facility] Comment on above: Performed By: #### L IPASE, HS TROP, TRIG, HEPATIC #### [address] Basophils Auto (Bld) [#/Vol] Ordered By: Fly Conti on 08-31-2024 Basophils (Bld) [#/Vol] Automated basophil count 0.0-0.2 [facility] Basophils/100 WBC Auto (Bld) Ordered By: Fly Conti on 08-31-2024 Basophils/100 WBC (Bld) Automated basophil % . [facility] Bilirubin Test strip Ql (U)O rdered By: Fyl Conti on 08-31-2024 Bilirubin Ql (U) Bilirubin.total [Presence] in Urine by Test strip Negative [facility] Bilirubin.direct [Mass/volum e] in Serum or PlasmaOrdered By: Fly Conti on 08-31-2024 Bilirubin.direct [Mass/Vol] Bilirubin.direct [Mass/volume] in Serum or Plasma 0.03-0.18 [facility] Bilirubin.total [Mass/volume ] in Serum or PlasmaOrdered By: Fly Conti on 08-31-2024 Bilirubin [Mass/Vol] Bilirubin.total [Mass/volume] in Serum or Plasma 0.3-1.[address] [facility] CT angio chest PE protocolon 08-31-2024 CT angio chest PE protocol [facility] [place] [address] CT Scan Report Signed Patient: Izabella Ogden MR#: [id number] : 1965 Acct:[id number] Age/Sex: 59 / F ADM Date: 08/31/24 [...] Ferrer M.D. 08/31/2024 6:05 PM Dictation Location: [place] [address] Transcribed By: SORIN 08/31/241804 Dictated By: Germán Ferrer MD 08/31/241800 Signed By: 08/31/241804 Normal [facility] Calcium [Mass/volume] in Ser um or PlasmaOrdered By: Fly Conti on 08-31-2024 Calcium [Mass/Vol] Calcium [Mass/volume ] in Serum or Plasma 8.6-10.3 [facility] Carbon dioxide, total [Moles /volume] in Serum or PlasmaOrdered By: Fly Conti on 08-31-2024 CO2 [Moles/Vol] Carbon dioxide, tota l [Moles/volume] in Serum or Plasma 21.0-31.0 [facility] Chloride [Moles/volume] in S tex or PlasmaOrdered By: Fly Conti on 08-31-2024 Chloride [Moles/Vol] Chloride [Moles/vol ume] in Serum or Plasma 98-107 [facility] Color Auto (U)Ordered By: Clovis Conti on 08-31-2024 Color (U) Color of Urine by Auto Yellow Fi [facility] Complete Blood Count Auto Di ffon 08-31-2024 Basophils (Bld) [#/Vol] 0.0 10*3/uL Normal 0.0-0.2 [facility] Comment on above: Result Comment: PERF ORMED BY: [place] [address] PATHOLOGIST MACHINE PULLER BARBARA WOLFE M.D. Performed By: #### P T, BMP, BNP, CBC, DDIMER, CK, HS TROP #### [address] Basophils/100 WBC (Bld) 0.3 % Normal . [facility] Comment on above: Performed By: #### P T, BMP, BNP, CBC, DDIMER, CK, HS TROP #### [address] Eosinophils (Bld) [#/Vol] 0.2 10*3/uL Normal 0.0-0.45 [facility] Comment on above: Performed By: #### P T, BMP, BNP, CBC, DDIMER, CK, HS TROP #### [address] Eosinophils/100 WBC (Bld) 2.2 % Normal . [facility] Comment on above: Performed By: #### P T, BMP, BNP, CBC, DDIMER, CK, HS TROP #### [address] Erythrocyte distribution width (RBC) [Ratio] 14.2 % Normal 11.9-15.3 [facility] Comment on above: Performed By: #### P T, BMP, BNP, CBC, DDIMER, CK, HS TROP #### [address] Hematocrit (Bld) [Volume fraction] 39.8 % Normal 34.0-46.4 [facility] Comment on above: Performed By: #### P T, BMP, BNP, CBC, DDIMER, CK, HS TROP #### [address] Hemoglobin (Bld) [Mass/Vol] 13.8 g/dL Normal 11.8-15.4 [facility] Comment on above: Performed By: #### P T, BMP, BNP, CBC, DDIMER, CK, HS TROP #### [address] Lymphocytes (Bld) [#/Vol] 1.3 10*3/uL Normal 1.00-4.8 [facility] Comment on above: Performed By: #### P T, BMP, BNP, CBC, DDIMER, CK, HS TROP #### [address] Lymphocytes/100 WBC (Bld) 15.7 % Normal . [facility] Comment on above: Performed By: #### P T, BMP, BNP, CBC, DDIMER, CK, HS TROP #### [address] MCH (RBC) [Entitic mass] 30.7 pg Normal 24.7-34.3 [facility] Comment on above: Performed By: #### P T, BMP, BNP, CBC, DDIMER, CK, HS TROP #### [address] MCV (RBC) [Entitic vol] 89.0 fL Normal 80-100 [facility] Comment on above: Performed By: #### P T, BMP, BNP, CBC, DDIMER, CK, HS TROP #### [address] Mean Corpuscular HGB Conc 34.5 g/dL Normal 32.0-35.0 [facility] Comment on above: Performed By: #### P T, BMP, BNP, CBC, DDIMER, CK, HS TROP #### [address] Monocytes (Bld) [#/Vol] 0.5 10*3/uL Normal 0.0-0.8 [facility] Comment on above: Performed By: #### P T, BMP, BNP, CBC, DDIMER, CK, HS TROP #### [address] Monocytes/100 WBC (Bld) 21.90 % High 0.00-20.00 [facility] Comment on above: Result Comment: For adults in ED, MDW > 20.0 may be associated with a higher risk of sepsis during the first 12 hrs of hospital admission Performed By: #### P T, BMP, BNP, CBC, DDIMER, CK, HS TROP #### [address] Monocytes/100 WBC (Bld) 5.9 % Normal . [facility] Comment on above: Performed By: #### P T, BMP, BNP, CBC, DDIMER, CK, HS TROP #### [address] Neutrophils (Bld) [#/Vol] 6.1 10*3/uL Normal 1.8-7.7 [facility] Comment on above: Performed By: #### P T, BMP, BNP, CBC, DDIMER, CK, HS TROP #### [address] Neutrophils/100 WBC (Bld) 75.9 % Normal . [facility] Comment on above: Performed By: #### P T, BMP, BNP, CBC, DDIMER, CK, HS TROP #### [address] NRBC% 0.0 /100{WBC} Normal 0-0.5 [facility] Comment on above: Performed By: #### P T, BMP, BNP, CBC, DDIMER, CK, HS TROP #### [address] Platelet mean volume (Bld) [Entitic vol] 9.0 fL Normal 6.3-10.7 [facility] Comment on above: Performed By: #### P T, BMP, BNP, CBC, DDIMER, CK, HS TROP #### [facility] [address] Platelets (Bld) [#/Vol] 229 10*3/uL Normal 150-450 [facility] Comment on above: Performed By: #### P T, BMP, BNP, CBC, DDIMER, CK, HS TROP #### [facility] [address] RBC (Bld) [#/Vol] 4.48 10*6/uL Normal 3.60-5.00 [facility] Comment on above: Performed By: #### P T, BMP, BNP, CBC, DDIMER, CK, HS TROP #### [address] WBC (Bld) [#/Vol] 8.0 10*3/uL Normal 3.8-11.6 [facility] Comment on above: Performed By: #### P T, BMP, BNP, CBC, DDIMER, CK, HS TROP #### [address] Creatine Kinaseon 08-31-2024 CK [Catalytic activity/Vol] 92 U/L Normal 30- [facility] Comment on above: Performed By: #### L IPASE, HS TROP, TRIG, HEPATIC #### [address] Creatine kinase [Enzymatic a ctivity/volume] in Serum or PlasmaOrdered By: Fly Conti on 08-31-2024 CK [Catalytic activity/Vol] Creatine kinase [Enzymatic activity/volume] in Serum or Plasma - [facility] Creatinine [Mass/volume] in Serum or PlasmaOrdered By: Fly Conti on 08-31-2024 Creatinine [Mass/Vol] Creatinine [Mass/v olume] in Serum or Plasma 0.60-1.20 [facility] D-Dimer High Sensitivityon 0 08-31-2024 D-Dimer High Sensitivity 1008 ng/mL High 0-243 [facility] Comment on above: Result Comment: [...] coagulation studies. Please contact the laboratory at [phone] for redraw instructions. PERFORMED BY: [place] [address] PATHOLOGIST MACHINE PULLER BARBARA WOLFE M.D. Performed By: #### L IPASE, HS TROP, TRIG, HEPATIC #### [place] [address] [place] Dipstick and Microscopicon 0 08-31-2024 Appearance (U) Clear Normal Clear [facility] Comment on above: Order Comment: Name Collection Type:: Clean-Voided Midstream Performed By: #### A DDONUAPLUS #### [place] [address] [place] Bacteria,Urine None Seen Normal None Seen [facility] Comment on above: Order Comment: Name Collection Type:: Clean-Voided Midstream Performed By: #### A DDONUAPLUS #### [place] [address] [place] Bilirubin,Urine Negative Normal Negative [facility] Comment on above: Order Comment: Name Collection Type:: Clean-Voided Midstream Performed By: #### A DDONUAPLUS #### [place] [address] [place] Color (U) Colorless Normal Yellow [facility] Comment on above: Order Comment: Name Collection Type:: Clean-Voided Midstream Performed By: #### A DDONUAPLUS #### [place] [address] [place] Glucose Ql (U) Normal Normal Normal [facility] Comment on above: Order Comment: Name Collection Type:: Clean-Voided Midstream Performed By: #### A DDONUAPLUS #### [address] Hyaline Casts,Urine None Normal 0-8 [facility] Comment on above: Order Comment: Name Collection Type:: Clean-Voided Midstream Result Comment: PERF ORMED BY: [place] [address] PATHOLOGIST MACHINE PULLER BARBARA WOLFE M.D. Performed By: #### A DDONUAPLUS #### [address] Ketones Ql (U) Negative Normal Negative [facility] Comment on above: Order Comment: Name Collection Type:: Clean-Voided Midstream Performed By: #### A DDONUAPLUS #### [address] Leukocyte esterase Test strip Ql (U) 3+ High Negative [facility] Comment on above: Order Comment: Name Collection Type:: Clean-Voided Midstream Performed By: #### A DDONUAPLUS #### [place] [address] [place] Nitrite,Urine Negative Normal Negative [facility] Comment on above: Order Comment: Name Collection Type:: Clean-Voided Midstream Performed By: #### A DDONUAPLUS #### [place] [address] [place] Occult Blood,Urine Negative Normal Negative [facility] Comment on above: Order Comment: Name Collection Type:: Clean-Voided Midstream Result Comment: PERF ORMED BY: [place] [address] PATHOLOGIST MACHINE PULLER BARBARA WOLFE M.D. Performed By: #### A DDONUAPLUS #### [address] pH (U) 6.5 [pH] Normal 5.0-9.0 [facility] Comment on above: Order Comment: Name Collection Type:: Clean-Voided Midstream Performed By: #### A DDONUAPLUS #### [place] [address] [place] Protein,Urine Negative Normal Negative [facility] Comment on above: Order Comment: Name Collection Type:: Clean-Voided Midstream Performed By: #### A DDONUAPLUS #### [place] [address] [place] RBC,Urine 1-2 Normal 0-4 [facility] Comment on above: Order Comment: Name Collection Type:: Clean-Voided Midstream Performed By: #### A DDONUAPLUS #### [place] [address] [place] Specificy [place],Urine 1.029 Normal 1.00 1-1.03 0 [facility] Comment on above: Order Comment: Name Collection Type:: Clean-Voided Midstream Performed By: #### A DDONUAPLUS #### [address] Squamous Epithelial Cell,Urine 1-2 Normal 0-2 [facility] Comment on above: Order Comment: Name Collection Type:: Clean-Voided Midstream Performed By: #### A DDONUAPLUS #### [place] [address] [place] Urobilinogen,Urine Normal Normal Normal [facility] Comment on above: Order Comment: Name Collection Type:: Clean-Voided Midstream Performed By: #### A DDONUAPLUS #### [place] [address] [place] WBC,Urine 3-4 Normal 0-4 [facility] Comment on above: Order Comment: Name Collection Type:: Clean-Voided Midstream Performed By: #### A DDONUAPLUS #### [address] ECG 12 lead ECGon 08-31-2024 ECG 12 lead ECG [facility] [place] [address] [place] [address] Electrocardiograph Report Signed Patient: Izabella Ogden MR#: [id number] : 1965 Acct:[id number] Age/Sex: 59 / F ADM Date: 08/31/24 Loc: ER Room: Type: [facility] ER Attending Dr: Ordering Provider: Fly Conti [...] voltage QRS Confirmed by Fly CONTI DO ([id number]) on 08/31/2024 8:35:29 PM Referred By: Electronically Signed By: Fly CONTI DO Transcribed By: MUS Signed By Fly Conti DO 0 08/31/242034 Normal [facility] Eosinophils Auto (Bld) [#/Vo l]Ordered By: Fly Conti on 08-31-2024 Eosinophils (Bld) [#/Vol] Automated eosinophil count 0.0-0.45 [facility] Eosinophils/100 WBC Auto (Bl d)Ordered By: Fly Conti on 08-31-2024 Eosinophils/100 WBC (Bld) Automated eosinophil % . [facility] Epithelial cells.squamous [# /area] in Urine sediment by Automated countOrdered By: Fly Conti on 08-31-2024 Epithelial cells.squamous Auto (Urine sed) [#/Area] Epithelial cells.squamous [#/area] in Urine sediment by Automated count 0-2 [facility] Erythrocyte distribution wid th Auto (RBC) [Ratio]Ordered By: Fly Conti on 08-31-2024 Erythrocyte distribution width (RBC) [Ratio] Erythrocyte distribution width [Ratio] by Automated count 11.9-15.3 [facility] Erythrocytes [#/area] in Uri ne sediment by Automated countOrdered By: Fly Conti on 08-31-2024 RBC Auto (Urine sed) [#/Area] Erythrocytes [#/area] in Urine sediment by Automated count 0-4 [facility] Fibrin D-dimer [Presence] in Platelet poor plasma by Latex agglutinationOrdered By: Fly Conti on 08-31-2024 Fibrin D-dimer LA Ql (PPP) Fibrin D-dimer [Presence] in Platelet poor plasma by Latex agglutination High 0-243 [facility] Comment on above: The reference range [...] coagulation studies. Please contact the laboratory at [phone] for redraw instructions. Globulin Calc (S) [Mass/Vol] Ordered By: Fly Conti on 08-31-2024 Globulin (S) [Mass/Vol] Serum globulin measurement by calculation (mass/volume) [facility] Glucose [Mass/volume] in Ser um or PlasmaOrdered By: Fly Conti on 08-31-2024 Glucose [Mass/Vol] Glucose [Mass/volume ] in Serum or Plasma High 70-100 [facility] Comment on above: ADA recommended refe [...] [Mass/volume] in Urine by Test strip Normal [facility] Hematocrit Auto (Bld) [Volum e fraction]Ordered By: Fly Conti on 08-31-2024 Hematocrit (Bld) [Volume fraction] Hematocrit [Volume Fraction] of Blood by Automated count 34.0-46.4 [facility] Hemoglobin Test strip Ql (U) Ordered By: Fly Conti on 08-31-2024 Hemoglobin Ql (U) Hemoglobin [Presence ] in Urine by Test strip Negative [facility] Hemoglobin [Mass/volume] in BloodOrdered By: Fly Conti on 08-31-2024 Hemoglobin (Bld) [Mass/Vol] Hemoglobin [Mass/volume] in Blood 11.8-15.4 [facility] Hepatic Panelon 08-31-2024 Albumin [Mass/Vol] 4.1 g/dL Normal 3.5-5.7 [facility] Comment on above: Performed By: #### L IPASE, HS TROP, TRIG, HEPATIC #### [facility] [address] Albumin/Globulin [Mass ratio] 1.9 {ratio} Normal [facility] Comment on above: Performed By: #### L IPASE, HS TROP, TRIG, HEPATIC #### [facility] [address] ALP [Catalytic activity/Vol] 150 U/L High 34-104 [facility] Comment on above: Performed By: #### L IPASE, HS TROP, TRIG, HEPATIC #### [facility] [address] [place] [address] [place] ALT [Catalytic activity/Vol] 216 U/L High 7-52 [facility] Comment on above: Performed By: #### L IPASE, HS TROP, TRIG, HEPATIC #### [facility] [address] [place] [address] [place] AST [Catalytic activity/Vol] 228 U/L High 13-39 [facility] Comment on above: Performed By: #### L IPASE, HS TROP, TRIG, HEPATIC #### [facility] [address] [place] [address] [place] Bilirubin [Mass/Vol] 0.5 mg/dL Normal 0.3-1.0 [facility] Comment on above: Performed By: #### L IPASE, HS TROP, TRIG, HEPATIC #### [facility] [address] [place] [address] [place] Bilirubin,Indirect 0.4 mg/dL Normal [facility] Comment on above: Performed By: #### L IPASE, HS TROP, TRIG, HEPATIC #### [facility] [address] Bilirubin.indirect [Mass/Vol] 0.10 mg/dL Normal 0.03-0.18 [facility] Comment on above: Performed By: #### L IPASE, HS TROP, TRIG, HEPATIC #### [facility] [address] Globulin (S) [Mass/Vol] 2.2 g/dL Normal [facility] Comment on above: Performed By: #### L IPASE, HS TROP, TRIG, HEPATIC #### [facility] [address] [place] [address] Protein [Mass/Vol] 6.3 g/dL Low 6.4-8.9 [facility] Comment on above: Performed By: #### L IPASE, HS TROP, TRIG, HEPATIC #### [facility] [address] [place] [address] Hepatitis Acute Panelon 04-3 HBsAg Screen Negative Normal Negative [facility] Comment on above: Performed By: #### H EPACUTE #### [facility] , Hepatitis A Antibody IgM Negative Normal Negative [facility] Comment on above: Result Comment: A ne gative anti-HAV IgM result suggests no recent or current HAV infection. Performed By: #### H EPACUTE #### [facility] , Hepatitis B Core Antibody IgM Negative Normal Negative [facility] Comment on above: Performed By: #### H EPACUTE #### [facility] , Hepatitis C Virus Antibody Non-Reactive Normal Non Reactive [facility] Comment on above: Performed By: #### H EPACUTE #### [facility] , Interpretation Hepatitis C Comment Normal . [facility] Comment on above: Result Comment: Not infected with HCV unless early or acute infection is suspected (which may be delayed in an immunocompromised individual), or other evidence exists to indicate HCV infection. Performed at: [facility] [address] [id number] Production Artist: Prakash Ballesteros PhD, Phone: [phone] PERFORMED BY: [facility] Landy [place] [id number] PATHOLOGIST MACHINE PULLER BARBARA WOLFE M.D. Performed By: #### H EPACUTE #### [facility] , Hyaline casts [#/area] in Ur ine sediment by Automated countOrdered By: Fly Conti on 08-31-2024 Hyaline casts Auto (Urine sed) [#/Area] Hyaline casts [#/area] in Urine sediment by Automated count 0-8 [facility] INR in Platelet poor plasma by Coagulation assayOrdered By: Fly Conti on 08-31-2024 INR Coag (PPP) [Relative time] INR in Platelet poor plasma by Coagulation assay [facility] Comment on above: INR Therapeutic Rang [...] i n Urine by Test strip Negative [facility] Leukocyte esterase [Presence ] in Urine by Test stripOrdered By: Fly Conti on 08-31-2024 Leukocyte esterase Test strip Ql (U) Leukocyte esterase [Presence] in Urine by Test strip High Negative [facility] Leukocytes [#/area] in Urine sediment by Automated countOrdered By: Fly Conti on 08-31-2024 WBC Auto (Urine sed) [#/Area] Leukocytes [#/area] in Urine sediment by Automated count 0-4 [facility] Leukocytes [#/volume] correc henry for nucleated erythrocytes in Blood by Automated counOrdered By: Fly Conti on 08-31-2024 WBC corrected for nucl RBC Auto (Bld) [#/Vol] Leukocytes [#/volume] corrected for nucleated erythrocytes in Blood by Automated coun 3.8-11.6 [facility] Lipaseon 08-31-2024 Lipase [Catalytic activity/Vol] 2452.0 U/L High 11.0-82.0 [facility] Comment on above: Result Comment: PERF ORMED BY: [facility] [address] [place] [address] PATHOLOGIST MACHINE PULLER BARBARA WOLFE M.D. Performed By: #### L IPASE, HS TROP, TRIG, HEPATIC #### [facility] [address] Lipase [Enzymatic activity/v olume] in Serum or PlasmaOrdered By: Fly Conti on 08-31-2024 Lipase [Catalytic activity/Vol] Lipase [Enzymatic activity/volume] in Serum or Plasma High 11.0-82.0 [facility] Lymphocytes Auto (Bld) [#/Vo l]Ordered By: Fly Conti on 08-31-2024 Lymphocytes (Bld) [#/Vol] Lymphocytes [#/volume] in Blood by Automated count 1.00-4.8 [facility] Lymphocytes/100 WBC Auto (Bl d)Ordered By: Fly Conti on 08-31-2024 Lymphocytes/100 WBC (Bld) Lymphocytes/100 leukocytes in Blood by Automated count . [facility] MCH Auto (RBC) [Entitic mass ]Ordered By: Fly Conti on 08-31-2024 MCH (RBC) [Entitic mass] MCH [Entitic ma ss] by Automated count 24.7-34.3 [facility] MCHC Auto (RBC) [Mass/Vol]Or dered By: Fly Conti on 08-31-2024 MCHC (RBC) [Mass/Vol] MCHC [Mass/volume] by Automated count 32.0-35.0 [facility] MCV Auto (RBC) [Entitic vol] Ordered By: Fly Conti on 08-31-2024 MCV (RBC) [Entitic vol] MCV [Entitic vol ume] by Automated count 80-100 [facility] Monocyte distribution width [Entitic volume] in Blood by AutomatedOrdered By: Fly Conti on 08-31-2024 Monocyte distribution width Auto (Bld) [Entitic vol] Monocyte distribution width [Entitic volume] in Blood by Automated High 0.00-20.00 [facility] Comment on above: For adults in ED, MD W > 20.0 may be associated with a higher risk of sepsis during the first 12 hrs of hospital admission Monocytes Auto (Bld) [#/Vol] Ordered By: Fly Conti on 08-31-2024 Monocytes (Bld) [#/Vol] Automated blood monocyte count 0.0-0.8 [facility] Monocytes/100 WBC Auto (Bld) Ordered By: Fly Conti on 08-31-2024 Monocytes/100 WBC (Bld) Automated monocyte % . [facility] Natriuretic peptide B [Mass/ Vol]Ordered By: Fly Conti on 08-31-2024 Natriuretic peptide B (Bld) [Mass/Vol] BNP ser/plas 5-100 [facility] Neutrophils Auto (Bld) [#/Vo l]Ordered By: Fly Conti on 08-31-2024 Neutrophils (Bld) [#/Vol] Neutrophils [#/volume] in Blood by Automated count 1.8-7.7 [facility] Neutrophils/100 WBC Auto (Bl d)Ordered By: Fly Conti on 08-31-2024 Neutrophils/100 WBC (Bld) Automated neutrophil % . [facility] Nitrite Test strip Ql (U)Ord ered By: Fly Conti on 08-31-2024 Nitrite Ql (U) Nitrite [Presence] i n Urine by Test strip Negative [facility] No Panel InformationOrdered By: Fly Conti on 08-31-2024 Estimated GFR (CKD-EPI) > 60.0 mL/Min [facility] Creatinine Clearance (Chem 83.98 [facility] Nucleated erythrocytes [Pres ence] in Blood by Automated countOrdered By: Fly Conti on 08-31-2024 Nucleated RBC Auto Ql (Bld) Nucleated erythrocytes [Presence] in Blood by Automated count 0-0.5 [facility] Platelet mean volume Auto (B ld) [Entitic vol]Ordered By: Fly Conti on 08-31-2024 Platelet mean volume (Bld) [Entitic vol] Platelet mean volume [Entitic volume] in Blood by Automated count 6.3-10.7 [facility] Platelets Auto (Bld) [#/Vol] Ordered By: Fly Conti on 08-31-2024 Platelets (Bld) [#/Vol] Platelets [#/vol ume] in Blood by Automated count 150-450 [facility] Potassium [Moles/volume] in Serum or PlasmaOrdered By: Fly Conti on 08-31-2024 Potassium [Moles/Vol] Potassium [Moles/v olume] in Serum or Plasma 3.5-5.1 [facility] Protein Test strip (U) [Mass /Vol]Ordered By: Fly Conti on 08-31-2024 Protein (U) [Mass/Vol] Protein [Mass/vol ume] in Urine by Test strip Negative [facility] Protein [Mass/volume] in Ser um or PlasmaOrdered By: Fly Conti on 08-31-2024 Protein [Mass/Vol] Protein [Mass/volume ] in Serum or Plasma Low 6.4-8.9 [facility] Prothrombin Time INRon 08-31 INR Coag (PPP) [Relative time] 1.0 {INR} Normal [facility] Comment on above: Result Comment: [...] L IPASE, HS TROP, TRIG, HEPATIC #### [facility] [address] [place] [id number] [facility] PT Coag (PPP) [Time] 11.0 s Normal 9.0-12.9 [facility] Comment on above: Result Comment: A he matocrit value greater than 55% may lead to inaccurate results in coagulation testing. Patients having hematocrit values >55% require a special collection tube for coagulation studies. Please contact the laboratory at [phone] for redraw instructions. Performed By: #### L IPASE, HS TROP, TRIG, HEPATIC #### [facility] [address] [place] [id number] [facility] Prothrombin time (PT)Ordered By: Fly Conti on 08-31-2024 PT Coag (PPP) [Time] Prothrombin time (PT) 9.0- 12.9 [facility] Comment on above: A hematocrit value g reater than 55% may lead to inaccurate results in coagulation testing. Patients having hematocrit values >55% require a special collection tube for coagulation studies. Please contact the laboratory at [phone] for redraw instructions. RBC Auto (Bld) [#/Vol]Ordere d By: Fly Conti on 08-31-2024 RBC (Bld) [#/Vol] Erythrocytes [#/volu me] in Blood by Automated count 3.60-5.00 [facility] Serum or plasma albumin/glob ulin mass ratioOrdered By: Fly Conti on 08-31-2024 Albumin/Globulin [Mass ratio] Serum or plasma albumin/globulin mass ratio [facility] Serum or plasma anion gap de terminationOrdered By: Fly Conti on 08-31-2024 Anion gap [Moles/Vol] Serum or plasma an ion gap determination 6.0-15.0 [facility] Serum or plasma non-glucuron idated bilirubin measurement (mass/volume)Ordered By: Fly Conti on 08-31-2024 Bilirubin.indirect [Mass/Vol] Serum or plasma non-glucuronidated bilirubin measurement (mass/volume) [facility] Sodium [Moles/volume] in Ser um or PlasmaOrdered By: Fly Conti 08-31-2024 Sodium [Moles/Vol] Sodium [Moles/volume ] in Serum or Plasma Low 136-145 [facility] Specific gravity Test strip (U) [Rel density]Ordered By: Fly Conti 08-31-2024 Specific gravity (U) [Rel density] Specific gravity of Urine by Test strip 1.001-1.[address] [facility] Triglyceride [Mass/volume] i n Serum or PlasmaOrdered By: Fly Conti on 08-31-2024 Triglyceride [Mass/Vol] Triglyceride [Mass/volume] in Serum or Plasma 35-149 [facility] Comment on above: TRIG ATP III CLASSIF ICATIONTRIG less than 150 mg/dL NormalTRIG 150-199 mg/dL Borderline highTRIG 200-500 mg/dL High TRIG greater than 500 mg/dL Very highStandard traceable to the Center for Disease Conrtrol and Prevention (CDC) test method. Triglycerideson 08-31-2024 Triglyceride [Mass/Vol] 105 mg/dL Normal 35-149 [facility] Comment on above: Result Comment: TRIG ATP III CLASSIFICATION TRIG less than 150 mg/dL Normal TRIG 150-199 mg/dL Borderline high TRIG 200-500 mg/dL High TRIG greater than 500 mg/dL Very high Standard traceable to the Center for Disease Conrtrol and Prevention (CDC) test method. PERFORMED BY: [place] [address] PATHOLOGIST MACHINE PULLER BARBARA WOLFE M.D. Performed By: #### L IPASE, HS TROP, TRIG, HEPATIC #### [place] [address] [place] Troponin I High Sensitivityo n 08-31-2024 Troponin I High Sensitivity 4 Normal 0-15 [facility] Comment on above: Result Comment: The Troponin units of report have been changed to meet the Chest Pain Accreditation requirement, element EC5.M1l2. Troponin units are changed from pg/ml to ng/L. Also, the decimal is removed and results are in whole numbers. PERFORMED BY: [place] [address] PATHOLOGIST MACHINE PULLER BARBARA WOLFE M.D. Performed By: #### L IPASE, HS TROP, TRIG, HEPATIC #### [place] [address] [place] Troponin I High Sensitivity 4 Normal 0-15 [facility] Comment on above: Result Comment: The Troponin units of report have been changed to meet the Chest Pain Accreditation requirement, element EC5.M1l2. Troponin units are changed from pg/ml to ng/L. Also, the decimal is removed and results are in whole numbers. PERFORMED BY: [place] [address] PATHOLOGIST MACHINE PULLER BARBARA WOLFE M.D. Performed By: #### L IPASE, HS TROP, TRIG, HEPATIC #### [place] [id number] [place] Troponin I.cardiac [Mass/vol ume] in Serum or Plasma by Detection limit <= 0.01 ng/Ordered By: Fly Conti on 08-31-2024 Troponin I.cardiac DL <= 0.01 ng/mL [Mass/Vol] Troponin I.cardiac [Mass/volume] in Serum or Plasma by Detection limit <= 0.01 ng/ 0-15 [facility] Comment on above: The Troponin units [...] [Mass/volume] in Serum or Plasma High 7-25 [facility] Urobilinogen Test strip (U) [Mass/Vol]Ordered By: Fly Conti on 08-31-2024 Urobilinogen (U) [Mass/Vol] Urobilinogen [Mass/volume] in Urine by Test strip Normal [facility] WBC Auto (Bld) [#/Vol]Ordere d By: Fly Conti on 08-31-2024 WBC (Bld) [#/Vol] Leukocytes [#/volume ] in Blood by Automated count 3.8-11.6 [facility] X-ray reportOrdered By: Alejo Ferrer on 08-31-2024 Study report [facility] Main [address] [address] XRay Report Signed Patient: Izabella Ogden MR#: [id number] : 1965 Acct:[id number] Age/Sex: 59 / F ADM Date: 5 [...] Germán Ferrer MD 08/31/241614 Signed By: 08/31/241614 [facility] Work Phone: XR chest 2V*on 08-31-2024 XR chest 2V* [facility] Main [place] [address] [place] [address] XRay Report Signed Patient: Izabella Ogden MR#: [id number] : 1965 Acct:[id number] Age/Sex: 59 / F ADM Date: 08/31/24 [...] MD 08/31/241614 Signed By: 08/31/241614 Normal [facility] pH Test strip (U)Ordered By: Fly Conti on 08-31-2024 pH (U) pH of Urine by Test strip 5.0-9.0 [facility] ECG 12 Leadon 08-10-2024 ECG revealed normal sinus rhythm, low voltage QRS complex, septal myocardial infarction of undetermined age. Abnormal ECG [facility] Work Phone: IGP,APTIMA HPV,AGE GDLNon AGE GDLN ACOG TESTING Note . [facility] Comment on above: TESTS RESULT FLAG UN ITS REF RANGE LAB Clinician Provided Cytology Information Source.............Cervix;Endocervix No. of containers..01 ThinPrep Vial Age Algo ACOG Alejandra... FLAG LEGEND: L-Low Normal,H-High Normal,LL-Alert Low,HH-Alert High <-Panic Low,>-Panic High,A-Abnormal,AA-Critical Abnormal Performed at: 01 =[facility] [place] [address] Desiree Hall MD, HPV APTIMA Negative Negative [facility] Comment on above: This nucleic acid am plification test detects fourteen high- risk HPV types (16,18,31,33,35,39,45,51,52,56,58,59,66,68) without differentiation. Performed at: =[facility] [id number] Production Artist: Desiree Hall MD, Phone: [phone] Performed at: [facility] [address] [place] [id number] Production Artist: James Dixon MD, Phone: [phone] IGP, APTIMA HPV, RFX 16/18,45 Note . [facility] Comment on above: TESTS RESULT FLAG UN ITS REF RANGE LAB DIAGNOSIS: 02 NEGATIVE FOR INTRAEPITHELIAL LESION OR MALIGNANCY. CELLULAR CHANGES ASSOCIATED WITH ATROPHY ARE PRESENT. THIS SPECIMEN WAS RESCREENED PART OF OUR TITLE ABSTRACTOR PROGRAM. Specimen adequacy: 02 Satisfactory for evaluation. Endocervical and/or squamous metaplastic cells (endocervical component) are present. Performed by: 02 Bryant Samaniego, Bunker Worker (ASC) QC reviewed by: 02 Nuris Mason, Bunker Worker (ASC) . 02 Note: Note 03 The [...] High,A-Abnormal,AA-Critical Abnormal Performed at: 02 [facility] [address] [place] [address] James Dixon MD, 03 WB [facility] [address] [address] Desiree Hall MD, BRUSH-SPATULA CERVIX ENDOCERVIX [facility] Reminderson 04-07-2024 Reminders Reminders From: Moon Wheatley LPN To: N - Clinical; Sent: 04/07/2024 12:50:14 EST Show up: 03/07/2034 07:00:00 EDT Subject: colonoscopy recall Due Date/Time: 04/06/2034 07:00:00 EST Reminder/Recall Patient due for screening colonoscopy 04/06/2034. Normal [facility] Ambulatory Visit Summaryon 1 05-08-2023 Ambulatory Visit [...] for choosing us for your care. Normal [facility] Alanine aminotransferase [En zymatic activity/volume] in Serum or PlasmaOrdered By: Anali Card on 02-12-2023 ALT [Catalytic activity/Vol] 70 U/L 7-52 [facility] Albumin [Mass/volume] in Ser um or Plasma by Bromocresol green (BCG) dye binding methoOrdered By: Anali Card on 02-12-2023 Albumin BCG dye [Mass/Vol] 4.3 g/dL 3.5-5.7 [facility] Alkaline phosphatase [Enzyma tic activity/volume] in Serum or PlasmaOrdered By: Anali Card on 02-12-2023 ALP [Catalytic activity/Vol] 80 U/L 34-104 [facility] Aspartate aminotransferase [ Enzymatic activity/volume] in Serum or PlasmaOrdered By: Anali Card on 02-12-2023 AST [Catalytic activity/Vol] 36 U/L 13-39 [facility] Basophils Auto (Bld) [#/Vol] Ordered By: Anali Card on 02-12-2023 Basophils (Bld) [#/Vol] 0.0 10*3/uL 0.0-0.2 [facility] Basophils/100 WBC Auto (Bld) Ordered By: Anali Card on 02-12-2023 Basophils/100 WBC (Bld) 0.4 % . F [facility] Bilirubin.total [Mass/volume ] in Serum or PlasmaOrdered By: Anali Card on 02-12-2023 Bilirubin [Mass/Vol] 0.5 mg/dL 0.3-1.0 [facility] Calcium [Mass/volume] in Ser um or PlasmaOrdered By: Anali Card on 02-12-2023 Calcium [Mass/Vol] 9.2 mg/dL 8.6-10.3 [facility] Carbon dioxide, total [Moles /volume] in Serum or PlasmaOrdered By: Anali Card on 02-12-2023 CO2 [Moles/Vol] 28.6 mmol/L 21.0-31.0 [facility] Chloride [Moles/volume] in S tex or PlasmaOrdered By: Anali Card on 02-12-2023 Chloride [Moles/Vol] 106 mmol/L 98-107 [facility] Creatinine [Mass/volume] in Serum or PlasmaOrdered By: Anali Card on 02-12-2023 Creatinine [Mass/Vol] 0.93 mg/dL 0.60-1.20 [facility] Eosinophils Auto (Bld) [#/Vo l]Ordered By: Anali Card on 02-12-2023 Eosinophils (Bld) [#/Vol] 0.1 10*3/uL 0.0-0.45 [facility] Eosinophils/100 WBC Auto (Bl d)Ordered By: Anali Card on 02-12-2023 Eosinophils/100 WBC (Bld) 2.1 % . [facility] Erythrocyte distribution wid th Auto (RBC) [Ratio]Ordered By: Anali Card on 02-12-2023 Erythrocyte distribution width (RBC) [Ratio] 14.5 % 11.9-15.3 [facility] Globulin Calc (S) [Mass/Vol] Ordered By: Anali Card on 02-12-2023 Globulin (S) [Mass/Vol] 2.3 g/dL [facility] Glucose [Mass/volume] in Ser um or PlasmaOrdered By: Anali Card on 02-12-2023 Glucose [Mass/Vol] 107 mg/dL 70-100 [facility] Comment on above: ADA recommended refe rence rangeRandom Glucose Reference Range is dependent on time and content of last meal. Glucose of more than 200 mg/dL in a nonstressed, ambulatory subject supports the diagnosis of Diabetes Mellitus. Hematocrit Auto (Bld) [Volum e fraction]Ordered By: Anali Card on 02-12-2023 Hematocrit (Bld) [Volume fraction] 39.2 % 34.0-46.4 [facility] Hemoglobin [Mass/volume] in BloodOrdered By: Anali Card on 02-12-2023 Hemoglobin (Bld) [Mass/Vol] 13.1 g/dL 11.8-15.4 [facility] Leukocytes [#/volume] correc henry for nucleated erythrocytes in Blood by Automated counOrdered By: Anali Card on 02-12-2023 WBC corrected for nucl RBC Auto (Bld) [#/Vol] 4.9 10*3/uL 3.8-11.6 [facility] Lymphocytes Auto (Bld) [#/Vo l]Ordered By: Anali Card on 02-12-2023 Lymphocytes (Bld) [#/Vol] 1.5 10*3/uL 1.00-4.8 [facility] Lymphocytes/100 WBC Auto (Bl d)Ordered By: Anali Card on 02-12-2023 Lymphocytes/100 WBC (Bld) 31.0 % . [facility] MCH Auto (RBC) [Entitic mass ]Ordered By: Anali Card on 02-12-2023 MCH (RBC) [Entitic mass] 30.4 pg 24.7-34.3 [facility] MCHC Auto (RBC) [Mass/Vol]Or dered By: Anali Card on 02-12-2023 MCHC (RBC) [Mass/Vol] 33.5 g/dL 32.0-35.0 [facility] MCV Auto (RBC) [Entitic vol] Ordered By: Anali Card on 02-12-2023 MCV (RBC) [Entitic vol] 90.8 fL 80-[address] [facility] Monocytes Auto (Bld) [#/Vol] Ordered By: Anali Card on 02-12-2023 Monocytes (Bld) [#/Vol] 0.4 10*3/uL 0.0-0.8 [facility] Monocytes/100 WBC Auto (Bld) Ordered By: Anali Card on 02-12-2023 Monocytes/100 WBC (Bld) 8.2 % . F [facility] Neutrophils Auto (Bld) [#/Vo l]Ordered By: Anali Card on 02-12-2023 Neutrophils (Bld) [#/Vol] 2.9 10*3/uL 1.8-7.7 [facility] Neutrophils/100 WBC Auto (Bl d)Ordered By: Anali Card on 02-12-2023 Neutrophils/100 WBC (Bld) 58.3 % . [facility] No Panel InformationOrdered By: Anali Card on 02-12-2023 Estimated GFR (CKD-EPI) > 60.0 mL/Min [facility] Creatinine Clearance (Chem N/A [facility] Nucleated erythrocytes [Pres ence] in Blood by Automated countOrdered By: Anali Card on 02-12-2023 Nucleated RBC Auto Ql (Bld) 0.1 /100{WBC} 0-0.5 [facility] Platelet mean volume Auto (B ld) [Entitic vol]Ordered By: Anali Card on 02-12-2023 Platelet mean volume (Bld) [Entitic vol] 9.6 fL 6.3-10.7 [facility] Platelets Auto (Bld) [#/Vol] Ordered By: Anali Card on 02-12-2023 Platelets (Bld) [#/Vol] 202 10*3/uL 150-450 [facility] Potassium [Moles/volume] in Serum or PlasmaOrdered By: Anali Card on 02-12-2023 Potassium [Moles/Vol] 4.6 mmol/L 3.5-5.1 [facility] Protein [Mass/volume] in Ser um or PlasmaOrdered By: Anali Card on 02-12-2023 Protein [Mass/Vol] 6.6 g/dL 6.4-8.9 [facility] RBC Auto (Bld) [#/Vol]Ordere d By: Anali Card on 02-12-2023 RBC (Bld) [#/Vol] 4.32 10*6/uL 3.60-5.00 [facility] Serum or plasma albumin/glob ulin mass ratioOrdered By: Anali Card on 02-12-2023 Albumin/Globulin [Mass ratio] 1.9 {ratio} [facility] [facility] Serum or plasma anion gap de terminationOrdered By: Anali Card on 02-12-2023 Anion gap [Moles/Vol] 11.0 mmol/L 6.0-15.0 [facility] Sodium [Moles/volume] in Ser um or PlasmaOrdered By: Anali Card on 02-12-2023 Sodium [Moles/Vol] 141 mmol/L 136-145 [facility] Urea nitrogen [Mass/volume] in Serum or PlasmaOrdered By: Anali Card on 02-12-2023 Urea nitrogen [Mass/Vol] 16 mg/dL 7-25 [facility] WBC Auto (Bld) [#/Vol]Ordere d By: Anali Card on 02-12-2023 WBC (Bld) [#/Vol] 4.9 10*3/uL 3.8-11.6 [facility] ANTICARDIOLIPIN AB (SELINA) IGG on 06-09-2022 Anticardiolipin Ab,IgG,Qn <9 Normal 0-14 [facility] Comment on above: Result Comment: Nega tive: <15 Indeterminate: 15 - 20 Low-Med Positive: >20 - 80 High Positive: >80 Performed By: #### C ARDLIP #### [facility] [address] [place] [address] Dr. Allison Neely CBC AUTO DIFFon 06-06-2022 BASO # 0.0 103/ul Normal 0.0-0.1 [facility] Comment on above: Performed By: #### C BC #### [facility] [address] [place] [address] Dr. Allison Neely Basophils/100 WBC (Bld) 0.5 % Normal 0.2-2.0 [facility] Comment on above: Performed By: #### C BC #### [facility] [address] [place] [address] Dr. Allison Neely EO # 0.1 103/ul Normal 0.0-0.7 [facility] Comment on above: Performed By: #### C BC #### [facility] [address] [place] [address] Dr. Allison Neely Eosinophils/100 WBC (Bld) 0.9 % Normal 0.9-7.0 [facility] Comment on above: Performed By: #### C BC #### [facility] [address] [place] [address] Dr. Allison Neely Erythrocyte distribution width (RBC) [Ratio] 13.7 % Normal 11.0-15.0 [facility] Comment on above: Performed By: #### C BC #### [facility] [address] [place] [address] Dr. Allison Neely Hematocrit (Bld) [Volume fraction] 41.8 % Normal 36.0-48.0 [facility] Comment on above: Performed By: #### C BC #### [facility] [address] [place] [address] Dr. Allison Neely Hemoglobin (Bld) [Mass/Vol] 13.0 g/dL Normal 12.0-16.0 [facility] Comment on above: Performed By: #### C BC #### [facility] [address] [place] [address] Dr. Allison Neely IG # 0.01 10e3/ul Normal 0.00-0.03 [facility] Comment on above: Performed By: #### C BC #### [facility] [address] [place] [address] Dr. Allison Neely IG % 0.2 % Normal 0.0-0.5 [facility] Comment on above: Performed By: #### C BC #### [facility] [address] [place] [address] Dr. Allison Neely LYMPH # 1.7 103/ul Normal 1.2-3.8 [facility] Comment on above: Performed By: #### C BC #### [facility] [address] [place] [address] Dr. Allison Neely Lymphocytes/100 WBC (Bld) 30.5 % Normal 20.5-60.0 [facility] Comment on above: Performed By: #### C BC #### [facility] [address] [place] [address] Dr. Allison Neely MANUAL DIFF REQ NO Normal [facility] Comment on above: Performed By: #### C BC #### [facility] [address] [address] [address] Allison Neely MCH (RBC) [Entitic mass] 29.7 pg Normal 26.7-34.0 [facility] Comment on above: Performed By: #### C BC #### [facility] [address] [place] [address] Dr. Allison Neely MCHC (RBC) [Mass/Vol] 31.1 g/dL Normal 29.9-35.2 [facility] Comment on above: Performed By: #### C BC #### [facility] [address] [place] [address] Dr. Allison Neely MCV (RBC) [Entitic vol] 95.7 fL Normal 81.0-99.0 [facility] Comment on above: Performed By: #### C BC #### [facility] [address] [place] [address] Dr. Allison Neely MONO # 0.3 103/ul Normal 0.3-0.8 [facility] Comment on above: Performed By: #### C BC #### [facility] [address] [place] [address] Dr. Allison Neely Monocytes/100 WBC (Bld) 5.1 % Normal 1.7-12.0 [facility] Comment on above: Performed By: #### C BC #### [facility] [address] [place] [address] Dr. Allison Neely NEUT # 3.5 103/ul Normal 1.4-6.5 [facility] Comment on above: Performed By: #### C BC #### [facility] [address] [place] [address] Dr. Allison Neely Neutrophils/100 WBC (Bld) 62.8 % Normal 43.0-75.0 [facility] Comment on above: Performed By: #### C BC #### [facility] [address] [place] [address] Dr. Allison Neely Platelet mean volume (Bld) [Entitic vol] 12.0 fL Normal 9.5-13.5 [facility] Comment on above: Performed By: #### C BC #### [facility] [address] [address] [address] Allison Neely PLT 274 103/ul Normal 150-450 [facility] Comment on above: Performed By: #### C BC #### [facility] [address] [place] [address] Dr. Allison Neely RBC 4.37 106/ul Normal 4.20-5.40 [facility] Comment on above: Performed By: #### C BC #### [facility] [address] [address] [address] Allison Neely WBC 5.6 103/ul Normal 4.0-11.0 [facility] Comment on above: Performed By: #### C BC #### [facility] [address] [place] [address] Dr. Allison Neely PROF 14(COMP METB)on 023 Albumin [Mass/Vol] 4.0 g/dL Normal 3.4-5.0 [facility] Comment on above: Performed By: #### C MP #### [facility] [address] [place] [address] Dr. Allison Neely Albumin/Globulin [Mass ratio] 1.3 {ratio} Normal [facility] Comment on above: Performed By: #### C MP #### [facility] [address] [place] [address] Dr. Allison Neely ALP [Catalytic activity/Vol] 103 U/L Normal 46-116 [facility] Comment on above: Performed By: #### C MP #### [facility] [address] [place] [address] Dr. Allison Neely ALT [Catalytic activity/Vol] 69 U/L Critically high 14-59 [facility] Comment on above: Performed By: #### C MP #### [facility] [address] [place] [address] Dr. Allison Neely Anion gap [Moles/Vol] 12.8 mmol/L Normal [facility] Comment on above: Performed By: #### C MP #### [facility] [address] [address] [address] Allison Neely AST [Catalytic activity/Vol] 30 U/L Normal 15-37 [facility] Comment on above: Performed By: #### C MP #### [facility] [address] [address] [address] Allison Neeyl Bilirubin [Mass/Vol] 0.4 mg/dL Normal 0.2-1.0 [facility] Comment on above: Performed By: #### C MP #### [facility] [address] [address] [address] Allison Neely Calcium [Mass/Vol] 9.3 mg/dL Normal 8.5-10.1 [facility] Comment on above: Performed By: #### C MP #### [facility] [address] [place] [address] Dr. Allison Neely Chloride [Moles/Vol] 101 mmol/L Normal 98-107 [facility] Comment on above: Performed By: #### C MP #### [facility] [address] [place] [address] Dr. Allison Neely CO2 [Moles/Vol] 29.2 mmol/L Normal 21.0-32.0 [facility] Comment on above: Performed By: #### C MP #### [facility] [address] [place] [address] Dr. Allison Neely Creatinine [Mass/Vol] 0.99 mg/dL Normal 0.55-1.02 [facility] Comment on above: Performed By: #### C MP #### [facility] [address] [place] [address] Dr. Allison Neely EGFR-AF ITALIAN >60 Normal >=60 [facility] Comment on above: Performed By: #### C MP #### [facility] [address] [place] [address] Dr. Allison Neely EGFR-NON AF ITALIAN 58 mL/min/1.73m2 Critically low >=60 [facility] Comment on above: Performed By: #### C MP #### [facility] [address] [place] [address] Dr. Allison Neely Globulin (S) [Mass/Vol] 3.0 g/dL Normal [facility] Comment on above: Performed By: #### C MP #### [facility] [address] [address] [address] Allison Neely Glucose [Mass/Vol] 157 mg/dL Critically high 74-106 [facility] Comment on above: Performed By: #### C MP #### [facility] [address] [address] [address] Allison Neely Potassium [Moles/Vol] 4.0 mmol/L Normal 3.5-5.1 [facility] Comment on above: Performed By: #### C MP #### [facility] [address] [place] [address] Dr. Allison Neely Protein [Mass/Vol] 7.0 g/dL Normal 6.4-8.2 [facility] Comment on above: Performed By: #### C MP #### [facility] [address] [place] [address] Dr. Allison Neely Sodium [Moles/Vol] 139 mmol/L Normal 136-145 [facility] Comment on above: Performed By: #### C MP #### [facility] [address] [place] [address] Dr. Allison Neely Urea nitrogen [Mass/Vol] 26.0 mg/dL Critically high 7.0-18 .0 [facility] Comment on above: Performed By: #### C MP #### [facility] [address] [place] [address] Dr. Allison Neely Urea nitrogen/Creatinine [Mass ratio] 26.3 mg/mg Normal [facility] Comment on above: Performed By: #### C MP #### [facility] [address] [place] [address] Dr. Allison Neely ANTICARDIOLIPIN AB (SELINA) IGG on 12-26-2021 Anticardiolipin Ab,IgG,Qn <9 Normal 0-14 [facility] Comment on above: Result Comment: Nega tive: <15 Indeterminate: 15 - 20 Low-Med Positive: >20 - 80 High Positive: >80 Performed By: #### C ARDLIP #### [facility] [address] [place] [address] Dr. Allison Neely PAP ACOG PANEL 2: 30 to 65on 08-29-2021 . . Normal [facility] Comment on above: Result Comment: Perf ormed at: WB Performed By: #### [id number] #### [facility] [address] [place] [address] Dr. Allison Neely Age Gdln ACOG Testing 30-65 [facility] Comment on above: Performed By: #### [id number] #### [facility] [address] [place] [address] Dr. Allison Neely DIAGNOSIS: Comment Normal [facility] Comment on above: Result Comment: NEGA TIVE FOR INTRAEPITHELIAL LESION OR MALIGNANCY. CELLULAR CHANGES ASSOCIATED WITH ATROPHY ARE PRESENT. Performed at: WB Performed By: #### [id number] #### [facility] [address] [place] [address] Dr. Allison Neely HPV Aptima Negative Normal [facility] Comment on above: Result Comment: This nucleic acid amplification test detects fourteen high-risk HPV types (16,18,31,33,35,39,45,51,52,56,58,59,66,68) without differentiation. Performed at: =G Performed By: #### [id number] #### [facility] [address] [place] [address] Dr. Allison Neely Methodology: Comment Normal [facility] Comment on above: Result Comment: This liquid based ThinPrep(R) pap test was screened with the use of an image guided system. Performed at: WB Performed By: #### [id number] #### [facility] [address] [place] [address] Dr. Allison Neely Note: Comment Normal [facility] Comment on above: Result Comment: The Pap smear is a screening test designed to aid in the detection of premalignant and malignant conditions of the uterine cervix. It is not a diagnostic procedure and should not be used as the sole means of detecting cervical cancer. Both false-positive and false-negative reports do occur. . Performed at: WB Performed By: #### [id number] #### [facility] [address] [address] [address] Allison Neely Performed by: Comment [facility] Comment on above: Result Comment: Nuno Solis, Bunker Worker (ASCP) Performed at: WB Performed By: #### [id number] #### [facility] [address] [address] [address] Allison Neely Specimen adequacy: Comment Normal [facility] Comment on above: Result Comment: Sati sfactory for evaluation. Endocervical component may not be distinguished in cases of atrophy. Performed at: WB Performed By: #### [id number] #### [facility] [address] [address] [address] Allison Neely Activated partial thrombopla stin time (aPTT) in platelet poor plasma by coagulation aOrdered By: Anali Card on 08-26-2021 aPTT Coag (PPP) [Time] 33.9 s 25.1-36.5 [facility] Albumin [Mass/volume] in Ser um or PlasmaOrdered By: Anali Card on 08-26-2021 Albumin [Mass/Vol] 4.0 g/dL [facility] Albumin/Protein.total in 24 hour Urine by ElectrophoresisOrdered By: Anali Card on 08-26-2021 Albumin Elph (24H U) [Mass fraction] 22.6 % [facility] Automated erythrocytes count in urine sediment (number/area)Ordered By: Anali Card on 08-26-2021 RBC Auto (Urine sed) [#/Area] 0-1 [HPF] [facility] Automated leukocytes count i n urine sediment (number/area)Ordered By: Anali Card on 08-26-2021 WBC Auto (Urine sed) [#/Area] 0-1 [HPF] [facility] Basophils Auto (Bld) [#/Vol] Ordered By: Anali Card on 08-26-2021 Basophils (Bld) [#/Vol] 0.0 10*3/uL 0.0-0.2 [facility] Basophils/100 WBC Auto (Bld) Ordered By: Anali Card on 08-26-2021 Basophils/100 WBC (Bld) 0.8 % F [facility] Bilirubin Test strip Ql (U)O rdered By: Anali Card on 08-26-2021 Bilirubin Ql (U) Negative Negative [facility] Blood hemoglobin measurement (mass/volume)Ordered By: Anali Card on 08-26-2021 Hemoglobin (Bld) [Mass/Vol] 13.5 g/dL 11.8-15.4 [facility] Blood leukocytes automated c ount (number/volume)Ordered By: Anali Card on 08-26-2021 WBC (Bld) [#/Vol] 3.3 10*3/uL 4.5-11.0 [facility] Body fluid albumin measureme nt (mass/volume)Ordered By: Anali Card on 08-26-2021 Albumin (Body fld) [Mass/Vol] 4.3 g/dL 3.2-5.5 [facility] Color Auto (U)Ordered By: Venkat Card on 08-26-2021 Color (U) Yellow Yellow [facility] Creatine kinase [Enzymatic a ctivity/volume] in Serum or PlasmaOrdered By: Anali Card on 08-26-2021 CK [Catalytic activity/Vol] 137 U/L 22-269 [facility] Creatinine and Glomerular fi ltration rate.predicted panel (S/P/Bld)Ordered By: Anali Card on 08-26-2021 Creatinine [Mass/Vol] 0.91 mg/dL 0.44-1.03 [facility] Dilute Morgan's viper venom timeOrdered By: Anali Card on 08-26-2021 dRVVT Coag (PPP) [Time] 39.[address] [facility] Eosinophils Auto (Bld) [#/Vo l]Ordered By: Anali Card on 08-26-2021 Eosinophils (Bld) [#/Vol] 0.1 10*3/uL 0.0-0.45 [facility] Eosinophils/100 WBC Auto (Bl d)Ordered By: Anali Card on 08-26-2021 Eosinophils/100 WBC (Bld) 4.2 % [facility] Erythrocyte distribution wid th Auto (RBC) [Ratio]Ordered By: Anali Card on 08-26-2021 Erythrocyte distribution width (RBC) [Ratio] 13.6 % 11.9-15.3 [facility] Erythrocyte sedimentation ra te by Photometric methodOrdered By: Anali Card on 08-26-2021 ESR Photometric method (Bld) [Velocity] 9 mm/hr 0-29 [facility] Estimated glomerular filtrat ion rate (GFR) non- AmericanOrdered By: Anali Card on 08-26-2021 GFR/1.73 sq M.predicted among non-blacks MDRD (S/P/Bld) [Vol rate/Area] > 60 mL/Min [facility] Gamma globulin/Protein.total in 24 hour Urine by ElectrophoresisOrdered By: Anali Card on 08-26-2021 Gamma globulin Elph (24H U) [Mass fraction] 16.7 % [facility] Globulin Calc (S) [Mass/Vol] Ordered By: Anali Card on 08-26-2021 Globulin (S) [Mass/Vol] 2.4 g/dL F [facility] Hematocrit Auto (Bld) [Volum e fraction]Ordered By: Anali Card on 08-26-2021 Hematocrit (Bld) [Volume fraction] 39.9 % 34.0-46.4 [facility] Hepatitis B virus surface Ag [Presence] in Serum or Plasma by ImmunoassayOrdered By: Anali Card on 08-26-2021 HBV surface Ag IA Ql Negative Negative [facility] Hepatitis C virus RNA [Prese nce] in Serum or Plasma by MALIKA with probe detectionOrdered By: Anali Card 08-26-2021 HCV RNA MALIKA+probe Ql N/A [facility] IgA [Mass/volume] in Serum o r PlasmaOrdered By: Anali Card on 08-26-2021 IgA [Mass/Vol] 103 mg/dL [facility] IgG [Mass/volume] in Serum o r PlasmaOrdered By: Anali Card on 08-26-2021 IgG [Mass/Vol] 617 mg/dL [facility] IgM [Mass/volume] in Serum o r PlasmaOrdered By: Anali Card on 08-26-2021 IgM [Mass/Vol] 226 mg/dL [facility] Comment on above: Performed at: - [facility] [address] [id number] Production Artist: Prakash Ballesteros PhD, Phone: [phone] Immunofixation for UrineOrde red By: Anali Card on 08-26-2021 Interpretation Immunofixation (U) [Interp] See comment [facility] Comment on above: No monoclonality det ected. Performed at: CB - [facility] [address] [id number] Production Artist: Prakash Ballesteros PhD, Phone: [phone] Ketones Auto test strip (U) [Mass/Vol]Ordered By: Anali Card on 08-26-2021 Ketones (U) [Mass/Vol] Negative Negative [facility] - CoagulationOrde red By: Anali Card on 08-26-2021 PT Coag (PPP) [Time] 11.1 s 9.0-12.9 [facility] - Hematology and Cell countsOrdered By: Anali Card on 08-26-2021 Nucleated RBC/100 WBC (Bld) [Ratio] 0.1 % 0-0.5 [facility] - UrinalysisOrder ed By: Anali Card on 08-26-2021 Hyaline casts LM Ql (Urine sed) 0-8 [LPF] [facility] Lupus anticoagulant [Interpr etation] in Platelet poor plasmaOrdered By: Anali Card on 08-26-2021 Lupus anticoagulant (PPP) [Interp] Comment: [facility] Comment on above: No lupus anticoagula nt was detected. Performed at: - [facility] [id number] Production Artist: Amanda Olmedo MD, Phone: [phone] Lymphocytes Auto (Bld) [#/Vo l]Ordered By: Anali Card on 08-26-2021 Lymphocytes (Bld) [#/Vol] 1.2 10*3/uL 1.00-4.8 [facility] Lymphocytes/100 WBC Auto (Bl d)Ordered By: Anali Card on 08-26-2021 Lymphocytes/100 WBC (Bld) 37.9 % [facility] MCH Auto (RBC) [Entitic mass ]Ordered By: Anali Card on 08-26-2021 MCH (RBC) [Entitic mass] 30.7 pg 24.7-34.3 [facility] MCHC Auto (RBC) [Mass/Vol]Or dered By: Anali Card on 08-26-2021 MCHC (RBC) [Mass/Vol] 33.8 g/dL 32.0-35.0 [facility] MCV Auto (RBC) [Entitic vol] Ordered By: Anali Card on 08-26-2021 MCV (RBC) [Entitic vol] 90.6 fL 80-[address] [facility] Monocytes Auto (Bld) [#/Vol] Ordered By: Anali Card on 08-26-2021 Monocytes (Bld) [#/Vol] 0.3 10*3/uL 0.0-0.8 [facility] Monocytes/100 WBC Auto (Bld) Ordered By: Anali Card on 08-26-2021 Monocytes/100 WBC (Bld) 8.5 % F [facility] Neutrophils Auto (Bld) [#/Vo l]Ordered By: Anali Card on 08-26-2021 Neutrophils (Bld) [#/Vol] 1.6 10*3/uL 1.8-7.7 [facility] Neutrophils/100 WBC Auto (Bl d)Ordered By: Anali Card on 08-26-2021 Neutrophils/100 WBC (Bld) 48.6 % [facility] Nitrite Test strip Ql (U)Ord ered By: Anali Card on 08-26-2021 Nitrite Ql (U) Negative Negative [facility] No Panel InformationOrdered By: Anali Card on 08-26-2021 Estimated GFR () > 60 mL/Min [facility] Comment on above: GFR estimated refere nce range: According to KDOQI guidelines, <60 ml/min/1.73m2 is sufficient to diagnose a patient with chronic kidney disease. Hepatitis B Core Total Antibody Negative Negative [facility] Comment on above: Performed at: CB - [facility] [address] [id number] Production Artist: Prakash Ballesteros PhD, Phone: [phone] Hepatitis C RNA Comment N/A F [facility] Creatinine Clearance (Chem N/A [facility] Protein Electrophoresis M-Shawn Not observed g/dL Not Observed [facility] Protein Electrophoresis Note See comment [facility] Comment on above: Protein electrophore sis scan will follow via computer, mail, or filling winder delivery. Serum Immunofixation See comment [facility] Comment on above: No monoclonality det ected. Urine Random Prot Electrophor Note See comment [facility] Comment on above: Protein electrophore sis scan will follow via computer, mail, or filling winder delivery. Performed at: [employer] - [facility] [address] [id number] Production Artist: Prakash Ballesteros PhD, Phone: [phone] Platelet mean volume Auto (B ld) [Entitic vol]Ordered By: Anali Card on 08-26-2021 Platelet mean volume (Bld) [Entitic vol] 9.9 fL 6.3-10.7 [facility] Platelet poor plasma interna tional normalized ratio (INR) by coagulation assay (relatOrdered By: Anali Card on 08-26-2021 INR Coag (PPP) [Relative time] 1.0 {INR} [facility] Comment on above: INR Therapeutic Rang [...] Coag (PPP) [Relative time] 35.[address] [facility] Platelets Auto (Bld) [#/Vol] Ordered By: Anali Card on 08-26-2021 Platelets (Bld) [#/Vol] 243 10*3/uL 150-450 [facility] Protein Auto test strip (U) [Mass/Vol]Ordered By: Anali Card on 08-26-2021 Protein (U) [Mass/Vol] Negative Negative [facility] Protein [Mass/volume] in Ser um or PlasmaOrdered By: Anali Card on 08-26-2021 Protein [Mass/Vol] 6.7 g/dL 6.1-7.9 [facility] Protein [Mass/Vol] 6.5 g/dL [facility] Protein [Mass/volume] in Uri neOrdered By: Anali Card on 08-26-2021 Protein (U) [Mass/Vol] 9.0 mg/dL Not Estab. Fi [facility] Protein.monoclonal/Protein.t otal in 24 hour Urine by ElectrophoresisOrdered By: Anali Card on 08-26-2021 Protein.monoclonal Elph (24H U) [Mass fraction] Not observed % Not Observed [facility] RBC Auto (Bld) [#/Vol]Ordere d By: Anali Card on 08-26-2021 RBC (Bld) [#/Vol] 4.40 10*6/uL 3.60-5.00 [facility] Reagin Ab [Presence] in Seru m by RPROrdered By: Anali Card on 08-26-2021 Reagin Ab RPR Ql (S) Non-Reactive Non Reactive [facility] Comment on above: Performed at: [address] [id number] Production Artist: Prakash Ballesteros PhD, Phone: [phone] Serum angiotensin converting enzyme (ROS) measurementOrdered By: Anali Card on 08-26-2021 Angiotensin converting enzyme [Catalytic activity/Vol] 33 U/L [facility] Comment on above: Performed at: - L [address] [id number] Production Artist: Prakash Ballesteros PhD, Phone: [phone] Serum globulin measurement ( mass/volume)Ordered By: Anali Card on 08-26-2021 Globulin (S) [Mass/Vol] 2.5 g/dL [facility] Serum hepatitis B virus surf ros antibody detectionOrdered By: Anali Card on 08-26-2021 HBV surface Ab Ql (S) Reactive [facility] Comment on above: Non Reactive: Incons istent with immunity, less than 10 mIU/mL Reactive: Consistent with immunity, greater than 9.9 mIU/mL Serum or plasma C reactive p rotein measurement (mass/volume)Ordered By: Anali Card on 08-26-2021 CRP [Mass/Vol] 0.5 mg/dL 0.0-1.0 [facility] Serum or plasma alanine shell otransferase measurement without P-5'-P (enzymatic activiOrdered By: Anali Card on 08-26-2021 ALT No additional P-5'-P [Catalytic activity/Vol] 37 U/L 10-60 [facility] Serum or plasma albumin/glob ulin mass ratioOrdered By: Anali Card on 08-26-2021 Albumin/Globulin [Mass ratio] 1.8 {ratio} [facility] Albumin/Globulin [Mass ratio] 1.6 {ratio} [facility] Serum or plasma alkaline kiesha sphatase measurement (enzymatic activity/volume)Ordered By: Anali Card on 08-26-2021 ALP [Catalytic activity/Vol] 41 U/L 32-92 [facility] Serum or plasma alpha 1 glob ulin measurement by electrophoresis (mass/volume)Ordered By: Anali Card on 08-26-2021 Alpha 1 globulin Elph [Mass/Vol] 0.2 g/dL [facility] Serum or plasma alpha 2 glob ulin measurement by electrophoresis (mass/volume)Ordered By: Anali Card on 08-26-2021 Alpha 2 globulin Elph [Mass/Vol] 0.6 g/dL [facility] Serum or plasma aspartate am inotransferase measurement (enzymatic activity/volume)Ordered By: Anali Card on 08-26-2021 AST [Catalytic activity/Vol] 26 U/L 10-42 [facility] Serum or plasma beta globuli n measurement by electrophoresis (mass/volume)Ordered By: Anali Card on 08-26-2021 Beta globulin Elph [Mass/Vol] 1.0 g/dL [facility] Serum or plasma calcium lenka urement (mass/volume)Ordered By: Anali Card on 08-26-2021 Calcium [Mass/Vol] 9.6 mg/dL 8.2-10.2 [facility] Serum or plasma chloride bob surement (moles/volume)Ordered By: Anali Card on 08-26-2021 Chloride [Moles/Vol] 105 mmol/L 95-114 [facility] Serum or plasma gamma globul in measurement by electrophoresis (mass/volume)Ordered By: Anali Card on 08-26-2021 Gamma globulin Elph [Mass/Vol] 0.7 g/dL [facility] Serum or plasma glucose lenka urement (mass/volume)Ordered By: Anali Card on 08-26-2021 Glucose [Mass/Vol] 108 mg/dL 70-100 [facility] Comment on above: ADA recommended refe rence [...] HCV Ab IA Ql See comment [facility] Comment on above: Negative Not infected with HCV, unless recent infection is suspected or other evidence exists to indicate HCV infection. Effective September 02, 2021 HCV Antibody reflex to MALIKA will be made non-orderable. This will affect any Custom Profile that includes [id number] HCV Antibody reflex to MALIKA. [employer] offers order code [id number] HCV Antibody RFX to Quant PCR as an alternative. Performed at: [facility] [address] [id number] Production Artist: Prakash Ballesteros PhD, Phone: [phone] Serum or plasma hepatitis C virus antibody signal/cutoff ratio by immunoassay (relatiOrdered By: Anali Card on 08-26-2021 HCV Ab Signal/Cutoff IA [Rel units/Vol] <0.1 s/co ratio [facility] Serum or plasma potassium me asurement (moles/volume)Ordered By: Anali Card on 08-26-2021 Potassium [Moles/Vol] 4.5 mmol/L 3.5-5.1 [facility] Serum or plasma sodium measu rement (moles/volume)Ordered By: Anali Card on 08-26-2021 Sodium [Moles/Vol] 142 mmol/L 136-146 [facility] Serum or plasma thyroglobuli n antibody assay (units/volume)Ordered By: Anali Card on 08-26-2021 Thyroglobulin Ab Qn [IU]/mL [facility] Comment on above: Thyroglobulin Antibo dy measured by Johnna Maken[employer] Method[employer] Performed at: [place] [id number] Production Artist: Prakash Ballesteros PhD, Phone: [phone] Serum or plasma thyroperoxid ase antibody assay (units/volume)Ordered By: Anali Card on 08-26-2021 TPO Ab Qn 12 [IU]/mL [facility] Comment on above: Performed at: [address] [id number] Production Artist: Prakash Ballesteros PhD, Phone: [phone] Serum or plasma total biliru bin measurement (mass/volume)Ordered By: Anali Card on 08-26-2021 Bilirubin [Mass/Vol] 0.5 mg/dL 0.3-1.2 [facility] Serum or plasma total carbon dioxide measurement (moles/volume)Ordered By: Anali Card on 08-26-2021 CO2 [Moles/Vol] 26.9 mmol/L 22.0-30.0 [facility] Serum or plasma urea nitroge n measurement (mass/volume)Ordered By: Anali Card on 08-26-2021 Urea nitrogen [Mass/Vol] 17 mg/dL 9-23 [facility] Specific gravity Auto test s trip (U) [Rel density]Ordered By: Anali Card on 08-26-2021 Specific gravity (U) [Rel density] 1.017 1.001-1.[address] [facility] Squamous epithelial cells de tection in urine sediment by light microscopyOrdered By: Anali Card on 08-26-2021 Epithelial cells.squamous LM Ql (Urine sed) None seen [HPF] [facility] TSH DL <= 0.005 mIU/L QnOrde red By: Anali Card on 08-26-2021 TSH Qn 1.43 m[IU]/L 0.45-5.33 [facility] TT plasOrdered By: Anali hall on 08-26-2021 Thrombin time Coag (PPP) [Time] 20.[address] [facility] Thyroxine (T4) free [Mass/vo lume] in Serum or PlasmaOrdered By: Anali Card on 08-26-2021 Free T4 [Mass/Vol] 0.77 ng/dL 0.61-1.12 [facility] Urine alpha 1 globulin/total protein by electrophoresisOrdered By: Anali Card on 08-26-2021 Alpha 1 globulin Elph (U) [Mass fraction] 7.7 % [facility] Urine alpha 2 globulin/total protein ratio by electrophoresisOrdered By: Anali Card on 08-26-2021 Alpha 2 globulin Elph (U) [Mass fraction] 15.7 % [facility] Urine bacteria detection by automated methodOrdered By: Anali Card on 08-26-2021 Bacteria Auto Ql (U) None seen None Seen [facility] Urine beta globulin measurem ent by electrophoresis (mass/volume)Ordered By: Anali Card on 08-26-2021 Beta globulin Elph (U) [Mass/Vol] 37.4 % [facility] Urine clarity by refractomet ry automatedOrdered By: Anali Card on 08-26-2021 Clarity Refractometry automated (U) Clear Clear [facility] Urine glucose measurement by automated test strip (mass/volume)Ordered By: Anali Card on 08-26-2021 Glucose Auto test strip (U) [Mass/Vol] Normal mg/dL Normal [facility] Urine hemoglobin detection b y automated test stripOrdered By: Anali Card on 08-26-2021 Hemoglobin Auto test strip Ql (U) Negative Negative [facility] Urine leukocyte esterase det ection by automated test stripOrdered By: Anali Card on 08-26-2021 Leukocyte esterase Auto test strip Ql (U) Negative Negative [facility] Urobilinogen Auto test strip (U) [Mass/Vol]Ordered By: Anali Card on 08-26-2021 Urobilinogen (U) [Mass/Vol] Normal mg/dL Normal [facility] aPTT.lupus sensitive (LA scr een)Ordered By: Anali Card on 08-26-2021 aPTT.lupus sensitive Coag (PPP) [Time] 35.[address] [facility] aPTT.lupus sensitive/aPTT.scotty pus sensitive W excess phospholipid (screen to confirm raOrdered By: Anali Card on 08-26-2021 aPTT.lupus sensitive/aPTT.lupus sensitive W excess phospholipid Coag (PPP) [Ratio] 1.[address] [facility] pH Auto test strip (U)Ordere d By: Anali Card on 08-26-2021 pH (U) 6.0 [pH] 5.0-9.0 [facility] Vital Signs Date Time Vital Sign Value Performing Clinician Facility 10-11-2024 08:[id number] Body height 172.[address] 10-11-2024 08:05-0400 Body mass index (BMI) [Ratio] 34.06 kg/m2 [address] 10-11-2024 08:05-0400 Body weight 101.[address] 10-11-2024 08:05-0400 Diastolic blood pressure 76 mm[Hg] [address] 10-11-2024 08:05-0400 Systolic blood pressure 120 mm[Hg] [address] 08-31-2024 20:37-0400 Diastolic blood pressure 84 mm[Hg] Ciarra Monroy MD Work Phone: [facility] 08-31-2024 20:37-0400 Heart rate 65 /min Ciarra Monroy MD Work Phone: [facility] 08-31-2024 20:37-0400 Respiratory rate 18 /min Ciarra Monroy MD Work Phone: [facility] 08-31-2024 20:37-0400 SaO2% (BldA) [Mass fraction] 98 % Ciarra Monroy MD Work Phone: [facility] 08-31-2024 20:37-0400 Systolic blood pressure 149 mm[Hg] Ciarra Monroy MD Work Phone: [facility] 08-31-2024 19:00-0400 Body temperature 98.6 [degF] Ciarra Monroy MD Work Phone: [facility] 08-31-2024 15:48-0400 Body height 175.26 cm Ciarra Monroy MD Work Phone: [facility] 08-31-2024 15:48-0400 Body weight 103.3 kg Ciarra Monroy MD Work Phone: [facility] 08-10-2024 10:06-0400 Diastolic blood pressure 76 mm[Hg] Rajeev Wong MD Work Phone: [facility] 08-10-2024 10:06-0400 Systolic blood pressure 116 mm[Hg] Rajeev Wong MD Work Phone: [facility] 08-10-2024 10:03-0400 Body height 172.7 cm Rajeev Wong MD Work Phone: [facility] 08-10-2024 10:03-0400 Body mass index (BMI) [Ratio] 34.06 kg/m2 Rajeev Wong MD Work Phone: [facility] 08-10-2024 10:03-0400 Body weight 101.61 kg Rajeev Wong MD Work Phone: [facility] 08-10-2024 10:03-0400 Heart rate 72 /min Rajeev Wong MD Work Phone: [facility] 05-31-2024 09:36-0500 Body weight 103.87 kg Noah Deepak DO Work Phone: [facility] 05-31-2024 09:36-0500 Diastolic blood pressure 90 mm[Hg] Noah Deepak DO Work Phone: [facility] 05-31-2024 09:36-0500 Systolic blood pressure 150 mm[Hg] Noah Deepak DO Work Phone: [facility] 03-08-2024 14:21-0500 Blood Pressure Location Oj HIDALGOL [facility] 03-08-2024 14:21-0500 Diastolic blood pressure 72 mm[Hg] Oj HIDALGOL [facility] 03-08-2024 14:21-0500 Heart rate 72 /min Oj HIDALGOL [facility] 03-08-2024 14:21-0500 Respiratory rate 16 /min Oj NILL [facility] 03-08-2024 14:21-0500 Systolic blood pressure 112 mm[Hg] Oj HIDALGOL [facility] Encounters Encounter Date Encounter Type Care Provider Facility Start: 10-11-2024 End: 10[facility]11[facility] Start: 10-11-2024 End: 10-11-2024 Subsequent hospital visit by physician Orin Donnelly Echo/Vasc Room 2 [facility] Comment on above: Abnormal EKG; Family history of MS (myocardial infarction); PVC (premature ventricular contraction) Start: 10-06-2024 End: 10-06-2024 ambulatory RAJEEV Alvarez [facility] Start: 10-06-2024 End: 10-06-2024 Subsequent hospital visit by physician Orin Lechuga [facility] Comment on above: Abnormal EKG; Family history of MS (myocardial infarction) Start: 08-31-2024 End: 08-31-2024 Emergency department patient visit Ciarra Monroy MD Work Phone: [facility] Work Phone: Start: 08-10-2024 End: 08-10-2024 ambulatory RAJEEV WONG [facility] Start: 08-10-2024 End: 08-10-2024 Office consultation new/estab patient 60 min Rajeev Wong MD Work Phone: [facility] Comment on above: Abnormal EKG; Family [...] Result Encounter Noah Deepak DO Work Phone: [facility] External Department Unsolicited Start: 05-31-2024 End: 05-31-2024 [...] Start: 04-06-2024 End: 04-06-2024 ambulatory Oj GONZALEZ Facility:[id number] Start: 03-08-2024 End: 03-08-2024 ambulatory Ciarra Irving Facility: [facility] Start: 03-08-2024 End: 03-08-2024 Patient encounter procedure Oj GONZALEZ [facility] Start: 02-09-2024 ambulatory Ciarra Monroy Facility:[facility] Start: 05-25-2023 End: 05-25-2023 ambulatory Noah Rinaldizio Work Phone: [facility] Work Phone: Start: 05-25-2023 End: 05-25-2023 Departed Referred Noah Deepak Work Phone: [facility] Start: 02-12-2023 End: 02-12-2023 ambulatory MD Ciarra Monroy Work Phone: [facility] Work Phone: Start: 02-12-2023 End: 02-12-2023 Patient encounter procedure MD Ciarra Monroy Work Phone: [facility]-Lab [address] Work Phone: Start: 06-06-2022 End: 06-07-[address] ANALI CARD Facility:[facility] Start: 12-25-2021 End: 12-26-[address] ANALI CARD Facility:[facility] Start: 09-05-2021 End: 09-05-2021 Patient encounter procedure MD Ciarra Monroy Work Phone: [facility]-XRay [address] Start: 08-26-2021 End: 08-26-2021 Patient encounter procedure MD Ciarra Monroy Work Phone: [facility]Lab [address] Start: 08-22-2021 End: 08-22-2021 [...] 04-06-2034 Screening for malignant neoplasm of colon [facility] Start: 02-16-2034 DTaP/Tdap/Td Vaccines (2 - Td or Tdap) DTaP/Tdap/Td Vaccines (2 - Td or Tdap) [facility] Start: 05-31-2027 Screening for malignant neoplasm of cervix [facility] Start: 12-04-2026 Screening for malignant neoplasm of colon [facility] Start: 06-06-2025 End: 06-06-2025 Patient encounter procedure 06/06/2025 9:00 AM EST Office Visit [facility] [address] [place] [id number] Noah Sotelo, DO [address] [place] [address] [facility] Start: 01-02-2025 Influenza vaccination Influenza Vaccine (Season Ended) [facility] Start: 11-09-2024 End: 08-10-2025 Lipid 1996 panel - Serum or Plasma Lipid Panel Lab Routine Hyperlipidemia, unspecified hyperlipidemia type Expected: 11/09/2024, Expires: 08/10/2025 [facility] Work Phone: Comment on above: Expected: 11/09/2024, Expires: Start: 11-01-2024 End: 11-01-2024 Patient encounter procedure 11/01/2024 9:40 AM EDT Office Visit [address] [place] [id number] Rajeev Wong MD [address] [address] [place] [address] [facility] Start: 10-11-2024 End: 10-11-2024 Patient encounter procedure 10/11/2024 7:45 AM EDT Appointment [id number] [place] [phone] [facility] Start: 08-31-2024 [facility] Start: 08-10-2024 End: 08-10-2025 Alanine aminotransferase [Enzymatic activity/volume] in Serum or Plasma by With P-5'-P Alanine Aminotransferase Lab Routine Hyperlipidemia, unspecified hyperlipidemia type Expected: 08/10/2024 (Approximate), Expires: 08/10/2025 [facility] Work Phone: Comment on above: Expected: 08/10/2024 (Approximate), Expi res: 08/10/2025 Start: 08-10-2024 End: 08-10-2025 Aspartate aminotransferase [Enzymatic activity/volume] in Serum or Plasma by With P-5'-P Aspartate Aminotransferase Lab Routine Hyperlipidemia, unspecified hyperlipidemia type Expected: 08/10/2024 (Approximate), Expires: 08/10/2025 [facility] Work Phone: Comment on above: Expected: 08/10/2024 (Approximate), Expi res: 08/10/2025 Start: 08-10-2024 End: 08-10-2025 CT for calcium scoring WO contrast and CTA W contrast IV Heart and coronary arteries CT cardiac scoring wo IV contrast Imaging Routine Abnormal EKG Family history of MS (myocardial infarction) Expected: 08/10/2024 (Approximate), Expires: 08/10/2025 [facility] Work Phone: Comment on above: Expected: 08/10/2024 (Approximate), Expi res: 08/10/2025 Start: 08-10-2024 End: 08-10-2025 F5 gene 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 [Presence] in Blood or Tissue by Molecular genetics method Factor 5 leiden Lab Routine Deep vein thrombosis (DVT) of other vein of left lower extremity, unspecified chronicity Expected: 08/10/2024 (Approximate), Expires: 08/10/2025 [facility] Work Phone: Comment on above: Expected: 08/10/2024 (Approximate), Expi res: 08/10/2025 Start: 08-10-2024 End: 08-10-2026 US Heart Transthoracic Transthoracic Echo Complete Echocardiography Routine Abnormal EKG Family history of MS (myocardial infarction) PVC (premature ventricular contraction) Expected: 08/10/2024 (Approximate), Expires: 08/10/2026 [facility] Work Phone: Comment on above: Expected: 08/10/2024 (Approximate), Expi res: 08/10/2026 Start: 06-12-2024 Screening for malignant neoplasm of breast Mammogram [facility] Start: 05-31-2024 End: 07-29-2025 MG Breast - bilateral Screening Bilateral screening mammogram Imaging Routine Encounter for screening mammogram for malignant neoplasm of breast Expected: 05/31/2024, Expires: 07/29/2025 [facility] Work Phone: Comment on above: Expected: 05/31/2024, Expires: Start: 05-25-2024 Screening for malignant neoplasm of cervix [facility] Start: 01-03-2024 COVID-19 Vaccine ( season) COVID-19 Vaccine ( season) [facility] Start: 01-03-2024 Influenza vaccination Influenza Vaccine (#1) [facility] Start: 2023 RSV High Risk: (Elderly (60+) or Population) (1 - Risk 60-74 years 1-dose series) RSV High Risk: (Elderly (60+) or Population) (1 - Risk 60-74 years 1-dose series) [facility] Start: 2013 Zoster Vaccines (1 of 2) Zoster Vaccines (1 of 2) [facility] Start: 2003 Screening for malignant neoplasm of breast Mammogram [facility] Start: 1984 Screening for malignant neoplasm of cervix HPV/Cotest [facility] Start: 1982 Pneumococcal vaccination Pneumococcal Vaccine (1 of 2 - PCV) [facility] Start: 1981 Diabetes mellitus screening Diabetes Screening [facility] Start: 1981 Hepatitis C screening Hepatitis C Screening [facility] Start: 1963 HIV screening HIV Screening [facility] Start: 1963 Lipid panel Lipid Panel [facility] Start: 1963 Screening for malignant neoplasm of colon [facility] Start: 1963 Yearly Adult Physical Yearly Adult Physical [facility] 24 hour urine measurement [facility] Work Phone: Albumin [Mass/volume ] in Serum or Plasma [facility] Work Phone: Albumin/Globulin ratio [facility] Work Phone: Angiotensin converti ng enzyme [Enzymatic activity/volume] in Serum or Plasma [facility] Work Phone: aPTT.lupus sensitive (LA screen) [facility] Work Phone: aPTT.lupus sensitive W excess phospholipid actual/Normal (normalized LA confirm) [facility] Work Phone: aPTT.lupus sensitive/aPTT.lupus sensitive W excess phospholipid (screen to confirm ra [facility] Work Phone: End: 10-06-2024 CT for calcium scoring WO contrast and CTA W contrast IV Heart and coronary arteries [facility] Service Area Work Phone: Comment on above: Once for 1 Occurrences starting 10/07/19 25 until 10/06/2024 dRVVT (LA screen) [facility] Work Phone: Electrophoresis: [id number] [facility] Work Phone: Electrophoresis: [id number] [facility] Work Phone: Electrophoresis: beta-globulin [facility] Work Phone: Electrophoresis: bailey ma globulin [facility] Work Phone: Globulin [Mass/volum e] in Serum [facility] Work Phone: Hepatitis A virus antibody, IgM type [facility] Hepatitis B core ant ibody measurement [facility] Work Phone: Hepatitis B core ant ibody measurement, IgM type [facility] Hepatitis B virus byers rface Ab [Presence] in Serum [facility] Work Phone: Hepatitis B virus byers rface Ag [Presence] in Serum or Plasma by Immunoassay [facility] Work Phone: Hepatitis B virus byers rface Ag [Presence] in Serum or Plasma by Immunoassay [facility] Hepatitis C virus Ab Signal/Cutoff in Serum or Plasma by Immunoassay [facility] Work Phone: Hepatitis C virus Ig G Ab [Presence] in Serum or Plasma by Immunoassay [facility] Hepatitis C virus RN A [log units/volume] (viral load) in Serum or Plasma by MALIKA with probe detection [facility] Hepatitis C virus RN A [Presence] in Serum or Plasma by MALIKA with probe detection [facility] Work Phone: Hepatitis C virus RN A [Units/volume] (viral load) in Serum or Plasma by MALIKA with probe detection [facility] IgA [Mass/volume] in Serum or Plasma [facility] Work Phone: IgG [Mass/volume] in Serum or Plasma [facility] Work Phone: IgM [Mass/volume] in Serum or Plasma [facility] Work Phone: Immunofixation for Urine [facility] Work Phone: Lupus anticoagulant [Interpretation] in Platelet poor plasma [facility] Work Phone: Measurement of monoc lonal protein concentration [facility] Work Phone: Patient Education Acute pancreat itis Clear liquid diet Pancreatitis - Discharge instructions [facility] Work Phone: Patient referral [facility] Work Phone: Protein [Mass/volume ] in Serum or Plasma [facility] Work Phone: Protein [Mass/volume ] in Urine [facility] Work Phone: Reagin Ab [Presence] in Serum by RPR [facility] Work Phone: Serum immunofixation [facility] Work Phone: THIN PREP TIS PAP AN D HR HPV DNA THIN PREP TIS PAP AND HR HPV DNA Pathology and Cytology Routine Well woman exam with routine gynecological exam Ordered: 05/31/2024 [facility] Comment on above: Ordered: 05/31/2024 Thrombin time [facility] Work Phone: Thyroglobulin Ab [Units/volume] in Serum or Plasma [facility] Work Phone: Thyroperoxidase Ab [Units/volume] in Serum or Plasma [facility] Work Phone: Immunizations Immunization Date Immunization Notes Care Provider Fa annie 05-30-2020 COVID-19 mRNA-1273 (Moderna) MD Ciarra Monroy Work Phone: [facility] 05-02-2020 COVID-19 mRNA-1273 (Modernlily) MD Ciarra Monroy Work Phone: [facility] 02-12-2015 influenza virus vaccine, unspecified formulation Noah Sotelo Work Phone: [facility] Payers Date Payer Category Payer Self-pay [id number] 2021 [facility] [id number] 2021 [facility] Care [facility] [id number] 1963 Unknown [id number]. [id number] 1963 Unknown [id number] [id number]. [id number] 1963 Unknown [id number]. [id number] 1963 Unknown [id number]. [id number] 1963 Unknown [id number]. [id number] 1963 Unknown [id number]. [id number] 1963 Unknown [id number] [id number]. 2.1246 1963 Unknown [id number]. 2.1246 1963 Unknown [id number] [id number]. 2.1244 1959 Unknown [id number] Unknown [employer] [id number] Unknown [id number] [id number] Social History Date Type Detail Facility Start: 09-26-2020 End: 08-31-2024 Tobacco smoking status NHIS Never smoked tobacco (finding) [facility] Start: 1965 Sex Assigned At Female F [facility] Tobacco smoking status Never [facility] Start: 05-25-2023 End: 08-10-2024 Sex Assigned At Female Ricci Carballo [facility] Start: 05-25-2023 End: 08-10-2024 Alcoholic beverage intake Lifetime non-drinker (finding) [facility] Start: 05-25-2023 End: 08-10-2024 History of Social function [facility] Start: 1965 Sex assigned at Not on file N [facility] Start: 08-10-2024 [facility] Work Phone: History of tobacco use [facility] Work [facility]: History of tobacco use [facility] Work Phone[facility] Start: 08-10-2024 Tobacco use and exposure Smokeless tobacco non-user [facility] Work Phone: Start: 07-31-2024 End: 10-11-2024 Exposure to SARS-CoV-2 (event) Not sure [facility] Start: 08-31-2024 Sex Female (finding) [facility] Functional Status Date Assessment Result Facility 03-08-2024 Functional Status N/A [facility] Clinical Notes 03-08-2024 to 08-31-2024 Rajeev Wong MD - 08/10/2024 9:40 AM EDTPatient Nikia Faustin LPN - 05/31/2024 9:10 AM EST Note Date & Type Note Facility 08-31-2024 Radiology Diagnostic study note [facility] Main [place] [id number] CT Scan Report Signed Patient: Izabella Ogden MR#: [id number] 279 : 1965 Acct:[id number] Age/Sex: 59 / F ADM Date: 5 [...] Ferrer M.D. 08/31/2024 6:05 PM Dictation Location: [place] [address] Transcribed By: SORIN 08/31/241804 Dictated By: Germán Ferrer MD 08/31/241800 Signed By: 08/31/241804 [facility] Work Phone: 08-10-2024 History of Present illness Narrative Cardiology Consultation- New Consult Reason for referral: Abnormal stress test Chief Complaint Patient presents with [facility] Care Abnormal stress test HPI: Izabella Ogden is a 59 y.o. female who was referred to me for abnormal stress test that was done at [facility]. The patient has no cardiac history [...] discussion and plan. documented in this encounter [facility] Work Phone: 08-10-2024 Instructions Kandice Sosa LPN [...] time. Follow up documented in this encounter [facility] Work Phone: 05-31-2024 History of Present illness [...] nursing note reviewed. Exam conducted with a dehydrogenation converter helper present. Vitals: There is no height or [...] insulin resistance. Pt to be referred to [facility] cardiology. Pt being started on lisinopril(elevated BP), metformin(insulin resistance), and diflucan(for yeast) Orders Placed This Encounter Procedures Bilateral screening mammogram Follow Up: Patient is to return in one year for annual unless needed otherwise. Documented by Cherise Faustin LPN on behalf of: Noah Sotelo DO documented in this encounter [facility] 03-08-2024 Note General Surgery Offi ce/Clinic Note [...] Recorded SARS-CoV-2 (COVID-19) mRNA-1273 vaccine 05/02/2020 Recorded [facility] Comment on above: Result Comment: Elec tronically Signed By: CARLOS ROLDAN, Oj Moore\Date and Time Signed: 03/08/24 14:56 EST Evaluation + Plan note No data available for this section [facility] Evaluation note No assessment inform ation available [facility] Work Phone: Evaluation note Diagnosis Well woman exam with routine gynecological exam Routine gynecological examination Encounter for screening mammogram for malignant neoplasm of breast Insulin resistance Other abnormal glucose History of mitral valve prolapse H/O blood clots Blood pressure elevated without history of HTN Skin yeast infection Candidiasis of skin and nails documented in this encounter [facility] HealthcareEvaluation note* Diagnosis Abnormal EKG Nonspecific abnormal [...] hazards to health documented in this encounter [facility] Work Phone: Evaluation note* Diagnosis Abnormal EKG Nonspecific abnormal electrocardiogram (ECG) (EKG) Family history of MS (myocardial infarction) Family history of ischemic heart disease PVC (premature ventricular contraction) Other premature beats documented in this encounter [facility] Work Phone: Evaluation note* Diagnosis Abnormal EKG Nonspecific abnormal electrocardiogram (ECG) (EKG) Family history of MS (myocardial infarction) Family history of ischemic heart disease documented in this encounter [facility] Work Phone: Hospital Discharge instructions No data available for this section [facility] Hospital Discharge instructions Additional Instructions If [...] you are evaluated by your primary care provider.[facility] Work Phone: Progress note No data available for this section [facility] Reason for visit Narrative* CV Imaging (Routine) - Authorized Specialty Diagnoses / Procedures Referred By Rio arnold Referred To Contact Cardiology Diagnoses Abnormal EKG Family history of MS (myocardial infarction) PVC (premature ventricular contraction) Procedures Transthoracic Echo Complete SC ECHO TTHRC R-T 2D W/WOM-MODE COMPL SPEC&COLR D Rajeev Wong MD [address] [place] [address] Phone: tel: fax: Referral ID Status Reason Start Date Expiration Date Visits Requested Visits Authorized [id number] Authorized Perform Procedure 08/10/2024 08/10/2025 1 1 [facility] Work Phone: Reason for visit Narrative* Imaging (Routine) - Pending Review Specialty Diagnoses / Procedures Referred By Rio arnold Referred To Contact Radiology Diagnoses Abnormal EKG Family history of MS (myocardial infarction) Procedures CT cardiac scoring wo IV contrast Rajeev Wong MD [address] [place] [address] Phone: tel: fax: Referral ID Status Reason Start Date Expiration Date Visits Requested Visits Authorized [id number] Pending Review Perform Procedure 08/10/2024 08/10/2025 1 1 [facility] Work Phone: Family History No [...] Roman howard 2023 End: May 25, 2023 Wellness Educator Relationship Specialty Start Date End Date Ciarra Monroy MD [address] [place] [address] PCP - General Family Medicine 05/25/23 Wellness Educator Relationship Specialty Start Date End Date Ciarra Monroy MD [address] [place] [address] PCP - General Family Medicine 05/25/23 Wellness Educator Relationship Specialty Start Date End Date Ciarra Monroy MD [address] [place] [address] PCP - General Family Medicine 05/25/23 Wellness Educator Relationship Specialty Start Date End Date Ciarra Monroy MD [address] [place] [address] PCP - General Family Medicine 07/28/24 Team Status: Inactive Member Role Status Dates Ciarra Monroy MD Primary Care Provider Active Start: August 31, 2024 End: August 31, 2024 Fly Conti DO Emergency Provider Active Start: August 31, 2024 End: August 31, 2024 Wellness Educator Relationship Specialty Start Date End Date Ciarra Monroy MD [address] [place] [address] PCP - General Family Medicine 07/28/24 Wellness Educator Relationship Specialty Start Date End Date Ciarra Monroy MD [address] [place] [address] PCP - General Family Medicine 07/28/24 Goals [...] DATE CREATED AUTHOR AUTHOR'S ORGANIZ ATION 04/14/2024 [facility] DATE CREATED AUTHOR AUTHOR'S ORGANIZ ATION 06/01/2024 [facility] DATE CREATED AUTHOR AUTHOR'S ORGANIZ ATION 09/18/2024 [facility] DATE CREATED AUTHOR AUTHOR'S ORGANIZ ATION 10/15/2024 [facility] DATE CREATED AUTHOR AUTHOR'S ORGANIZ ATION 10/18/2024 [facility] Reason for Visit (unrecogniz ed section and content) Reason Comments Well Women Visit Reason Comments Establish Care Abnormal stress test Specialty Diagnoses / Procedures Referred By Contac t Referred To Contact Diagnoses Abnormal EKG Family history of MS (myocardial infarction) Procedures ECG 12 Lead Rajeev Wong MD [address] [facility] [address], [address] [address] Phone: tel: fax: Referral ID Status Reason Start Date Expiration Date V isits Requested Visits Authorized [id number] Authorized 08/10/2024 08/10/2025 1 1 FOR RECORDS [...] BE BASED ON THE PRIMARY CLINICAL RECORDS. [employer] provides no warranty or guarantee of the accuracy or completeness of information in this document.
[2024-11-17 07:57] LABS: Hematocrit 39.0 % (36.0-48.0); Hemoglobin 13.0 g/dL (12.0-16.0); Immature Granulocytes Abs Auto 0.01 10^3/uL (0.00-0.03); Immature Granulocytes Pct Auto 0.2 % (0.0-0.5); Lymphocytes Absolute Auto 1.8 10^3/uL (1.2-3.8); Mean Corpuscular HGB Conc 33.3 g/dL (29.9-35.2); Mean Corpuscular Hemoglobin 30.5 pg (26.7-34.0); Mean Corpuscular Volume 91.5 fL (81.0-99.0); Platelet Count 214 10^3/uL (150-450); Red Blood Count 4.26 10^6/uL (4.20-5.40); White Blood Count 4.8 10^3/uL (4.0-11.0)
[2024-11-17 11:58] LABS: Alanine Aminotransferase 50 U/L (14-59); Albumin Globulin Ratio 1.1; Albumin Level 3.5 g/dL (3.4-5.0); Alkaline Phosphatase 72 U/L (46-116); Anion Gap 13.0; Aspartate Amino Transferase 26 U/L (15-37); Blood Urea Nitrogen 20.0 mg/dL (7.0-18.0); Calcium 8.9 mg/dL (8.5-10.1); Carbon Dioxide 26.3 mmol/L (21.0-32.0); Chloride 104 mmol/L (98-107); Estimated GFR (African America >60 (>=60 mL/min/1.73m^2); Estimated GFR (Non-African Ame >60 (>=60 mL/min/1.73m^2); Globulin 3.2 g/dL; Glucose 110 mg/dL (74-106); Potassium 4.3 mmol/L (3.5-5.1); Sodium 139 mmol/L (136-145); Total Protein 6.7 g/dL (6.4-8.2)
== END 2024-11-17 07:28 | disposition home or self-care (01) ==
LOC: LAB 07:29
PROVIDERS: PCP Family Medicine; Visit Provider Internal Medicine Rheumatology
DX: I82.492 Acute embolism and thrombosis of other specified deep vein of left lower extremity (principal); M15.0 Primary generalized (osteo)arthritis; Z79.899 Other long term (current) drug therapy
CPT/HCPCS: 36415; 80053; 80061; 81241; 85025